=== PATIENT | female | born 1960 | race Caucasian/White ===

== ENCOUNTER 2019-01-07 13:53 | Emergency (ER) | payer OTHER ==
--- OUTSIDE RECORDS SUMMARY | 2019-01-07 13:55 | XMS REPORT | Clinical Summary ---
:1960 Author Organization [facility] Address [address] [place] [address] Care Team Providers Name Role Phone Kayce Cheek Weinberg DO Primary Care Provider Allergies Active Allergy Reactions Severity Noted Date Comments Adhesive Tape-Silicones 10/01/2015 "Plastic" Aspirin 10/01/2015 Cardio does not want pt to take Hydromorphone 10/01/2015 Meperidine 10/01/2015 Methadone 10/01/2015 Morphine Shortness Of Breath High 10/01/2015 Penicillins Shortness Of Breath High 10/01/2015 Prochlorperazine 10/01/2015 Promethazine 10/01/2015 im causes nausea Medications Medication Sig Dispensed Refills Start Date End Date Status PROAIR HFA 90 2 puffs every 6 0 01/20/2016 Active mcg/actuation inhaler (six) hours as needed. RESTASIS 0.05 % Administer 1 0 04/12/2016 Active ophthalmic emulsion drop to both eyes. cyclobenzaprine Take 10 mg by 0 Active (FLEXERIL) 10 MG mouth 3 (three) tablet times a day as needed for muscle spasms. MULTIVITAMIN ORAL Take by mouth. 0 Active ascorbic acid, Take 100 mg by 0 Active vitamin C, (vitamin mouth daily. C) 100 MG tablet amitriptyline Take 75 mg by 0 Active (ELAVIL) 100 MG mouth nightly. tablet levothyroxine TAKE ONE TABLET 90 tablet 0 10/09/2016 Active (SYNTHROID, LEVOXYL) BY MOUTH DAILY 125 mcg tablet omeprazole (PriLOSEC) TAKE ONE CAPSULE 60 capsule 0 11/26/2016 Active 20 MG capsule BY MOUTH TWICE A DAY gabapentin 200 mg daily. 0 01/16/2017 Active (NEURONTIN) 400 mg capsule metoprolol succinate 0 12/05/2016 Active XL (TOPROL-XL) 50 mg 24 hr tablet mupirocin (BACTROBAN) 0 12/25/2016 Active 2 % ointment predniSONE Take 2.5 mg by 0 01/14/2017 Active (DELTASONE) 2.5 mg mouth daily. tablet topiramate (TOPAMAX) 0 01/16/2017 Active 50 MG tablet warfarin (COUMADIN) 5 Take 1 tablet 30 tablet 11 02/11/2017 02/11/2018 MG tablet (5mg) by mouth daily for 30 days. 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 Cough 10/01/2015 Hypothyroidism 10/01/2015 Impaired fasting glucose 10/01/2015 Abnormal liver enzymes 10/01/2015 Disorder of mitral valve 10/01/2015 Urinary tract infection 10/01/2015 Vitamin D deficiency 10/01/2015 Immunizations Name Dates Previously Given Next Due INFLUENZA QUAD 04/19/2016 Influenza, Quadrivalent 04/05/2015 Pneumococcal Polysaccharide 04/19/2016, 04/05/2015 Family History Medical History Relation Name Comments Cancer Maternal Grandmother breast Relation Name Status Comments Maternal Grandmother Social History Tobacco Use Types Packs/Day Years Used Date Current Some Day Smoker Cigarettes 6 Tobacco Cessation: Ready to Quit: Yes; Counseling Given: Yes Comments: 3 pc of cigarettes per day Alcohol Use Drinks/Week oz/Week Comments No Sex Assigned at Date Recorded Not on file Job Start Date Occupation Industry Not on file Not on file Not on file Travel History Travel Start Travel End No recent travel history available. Last Filed Vital Signs Not on file Plan of Treatment Health Maintenance Due Date Last Done Comments COLON CANCER SCREENING 2009 SHINGLES VACCINES (#1) 2009 BREAST CANCER SCREENING 01/04/2016 01/03/2014 INFLUENZA VACCINE 03/05/2019 04/19/2016, 04/05/2015 Procedures Procedure Name Priority Date/Time Associated Diagnosis Comments TRANSFUSE RED BLOOD Routine 04/09/2018 5:37 PM CDT CELLS after 01/06/2018 Results Transfuse RBC (04/09/2018 5:37 PM CDT)Only the most recent of2 resultswithin the time period is included.after 01/06/2018 Advance Directives Patient has advance care planning documents on file. For more information, please contact:Rohan Arana [facility] [place] [address]
[2019-01-07] MEDS ORDERED: NA CHLORIDE 0.9% 1,000 ML ONE ×3 (14:24→18:01)
--- NOTE | 2019-01-07 14:29 | RAD REPORT ---
EXAM DESCRIPTION: CT - Head Brain Wo Cont - 01/07/2019 2:21 pm CLINICAL HISTORY: fall, head injury COMPARISON: HEAD BRAIN W O CONTRAST dated 10/21/2015; HEAD BRAIN W O CONTRAST dated 05/28/2006 TECHNIQUE: All CT scans are performed using dose optimization technique as appropriate and may inclu de automated exposure control or mA/KV adjustment according to patient size. FINDINGS: No intracranial hemorrhage, hydrocephalus or extra-axial fluid collection.No areas of brai n edema or evidence of midline shift. The paranasal sinuses and mastoids are clear. The calvarium is intact. Right posterior scalp hematoma . IMPRESSION: No acute intracranial abnormality.
[2019-01-07 14:34] LABS: Absolute Lymphocytes (CBC) 0.8 K/uL (0.7-4.9); Absolute Monocytes 0.4 K/uL (0.1-1.3); Absolute Neutrophil 3.1 K/uL (1.8-8.0); Basophils % 0.1 % (0-1.3); Hematocrit 23.9 % (36.0-45.0); Lymphocytes % 18.2 % (15.3-44.8); MPV 8.4 fL (7.6-11.3); Monocytes % 8.9 % (3.3-12.3); RBC Red Blood Cell Count 2.84 M/uL (3.86-4.86)
[2019-01-07 14:50] LABS: Potassium 3.3 mmol/L (3.5-5.1)
[2019-01-07 15:08] LABS: Protime INR 10.62
[2019-01-07] MEDS ORDERED: VITAMIN K (ADULT) 10 MG/ML ONE (15:28)
--- NOTE | 2019-01-07 15:59 | RAD REPORT ---
EXAM DESCRIPTION: CT - Abdomen Pelvis W Contrast - 01/07/2019 3:36 pm CLINICAL HISTORY: Abdominal pain . COMPARISON: none. TECHNIQUE: Computed axial tomography of the abdomen pelvis was obtained. 100 cc Isovue-300 was admin istered intravenously. Oral contrast was not requested which limits evaluation of bowel. All CT scans are performed using dose optimization technique as appropriate and may include automated exposure control or mA/KV adjustment according to patient size. FINDINGS: Gallbladder distention. Small gallstones. Gallbladder wall is not thickened. Hepatic and splenic granulomas Pancreas, adrenal and left kidney appear unremarkable. Small right renal cysts There is no evidence of diverticulitis. IMPRESSION: Cholelithiasis. Gallbladder distention
[2019-01-07] MEDS ORDERED: ONDANSETRON 4 MG/2 ML VIAL ONE ×2 (16:28→20:10)
[2019-01-07] MEDS ORDERED: NA CHLORIDE 0.9% 200 ML IV ONE ×2 (16:28→19:32)
[2019-01-07] MEDS ORDERED: PANTOPRAZOLE INJ 80 MG in NA CHLORIDE 0.9% 250 ML IV SCH (18:00)
[2019-01-07] MEDS ORDERED: PANTOPRAZOLE 40 MG INJ ONE (18:01)
--- NOTE | 2019-01-07 18:19 | EDPHYS ---
Physician Documentation [facility] Name: Kim Aldana Age: 58 yrs Sex: Female : 1960 Arrival Date: 01/07/2019 Time: 13:56 Bed 2 Private MD: ED Physician Masoud Casey HPI: 01/07 17:25 This 58 yrs old Female presents to ER via EMS with complaints of Fall Injury, rn Head Injury Without LOC-Adult. 17:25 Details of fall: The patient fell from seated position. Onset: The symptoms/episode rn began/occurred just prior to arrival. Associated injuries: The patient sustained injury to the head. Severity of symptoms: At their worst the symptoms were mild, in the emergency department the symptoms are unchanged. The patient has experienced similar episodes in the past. REports fall from seated position, was using new seated walker, lost control, fell backward and hit head, no LOC, takes coumadin, reports recurrent falls lately, also reports generalized weakness and fatigue with black tarry stools that began today. No hematemesis. . Historical: - Allergies: 14:06 Aspirin; sv 14:06 Compazine; sv 14:06 Demerol; sv 14:06 Dilaudid; sv 14:06 Methadone; sv 14:06 Morphine; sv 14:06 Neurontin; sv 14:06 PENICILLINS; sv 14:06 Phenergan; sv 14:06 plastic tape; sv 14:06 Vicodin; sv - Home Meds: 14:26 alprazolam 2 mg Oral tab twice a day [Active]; calcium with viatmin D, 1 po daily sv [Active]; cyclobenzaprine 10 mg Oral tab 4 times daily [Active]; levothyroxine 150 mcg tab once daily [Active]; magnesium oxide 400 mg Oral cap daily [Active]; minocycline 100 mg Oral cap 2 times per day [Active]; multivitamin Oral cap daily [Active]; prednisone 2.5 mg Oral tab once daily [Active]; Zofran (as hydrochloride) 4 mg Oral tab 2 times per day [Active]; Restasis ophthalmic ophthalmic [Active]; Sumatriptan Sub-Q [Active]; 14:58 acyclovir 400 mg Oral tab 2 tabs daily [Active]; amitriptyline 75 mg oral tab [Active]; sv metoprolol tartrate 25 mg oral tab once daily [Active]; Prilosec 20 mg Oral cpDR 2 times per day [Active]; warfarin 4 mg oral tab once daily [Active]; Estrace 0.01 twice weekly Oral [Active]; gabapentin 300 mg oral cap daily [Active]; Albuterol Inhl [Active]; - PMHx: 14:06 arterial insuficiency; Back pain; pulmonary edema; cerebritis; chest pain; Chronic sv pain; dejenteritive joint disease; Dyspepsia; esophageal reflux; fatigue; hypersomnia; Lupus; menopause; Panic Attacks; Seizures; Tachycardia; TIA; venous insufficiency; 14:58 osteomyelitis; lumbar radiculitis; sv - PSHx: 14:06 Appendectomy; lens implants; left hip replacement; right knee replacement; colon sv removed; right hip replacement; left foot; heart valve replacement; - Immunization history:: Adult Immunizations up to date. - Immunization history: Last tetanus immunization: unknown. - Ebola Screening: : No symptoms or risks identified at this time. - Social history:: Smoking status: Patient uses tobacco products, smokes one-half pack cigarettes per day. - Family history:: not pertinent. - Hospitalizations: : No recent hospitalization is reported. ROS: 17:25 Constitutional: Negative for fever, chills, and weight loss, Eyes: Negative for injury, rn pain, redness, and discharge, Neck: Negative for injury, pain, and swelling, Cardiovascular: Negative for chest pain, palpitations, and edema, Respiratory: Negative for shortness of breath, cough, wheezing, and pleuritic chest pain, Abdomen/GI: + pelvic pain MS/Extremity: Negative for injury and deformity, Neuro: + generalized weakness Exam: 17:28 Constitutional: This is a well developed, well nourished patient who is awake, alert, rn demanding pain medication Head/Face: + right posterior parietal hematoma, no laceration or bleeding Eyes: Pupils equal round and reactive to light, extra-ocular motions intact. Lids and lashes normal. Conjunctiva and sclera are non-icteric and not injected. Cornea within normal limits. Periorbital areas with no swelling, redness, or edema. ENT: dry MM Neck: no cervical tenderness Cardiovascular: Regular rate, + systolic murmur with click Respiratory: Lungs have equal breath sounds bilaterally, clear to auscultation Abdomen/GI: soft, non-tender Back: No spinal tenderness. + lower back ecchymosis from right hip to perineum MS/ Extremity: Pulses equal, no cyanosis. Neurovascular intact. Full, normal range of motion. Equal circumference. Neuro: Awake and alert, GCS 15, oriented to person, place, time, and situation. Cranial nerves II-XII grossly intact. Motor strength 5/5 in all extremities. Sensory grossly intact. Cerebellar exam normal Vital Signs: 14:00 BP 103 / 53; Pulse 101; Resp 14; Temp 97.8; Pulse Ox 96% ; Weight 60 kg; Height 5 ft. 6 sv in. (167.64 cm); Pain 10/10; 14:29 BP 98 / 72; Pulse 106; Resp 17; Temp 98; Pulse Ox 97% on R/A; sv 15:03 BP 91 / 42; Pulse 101; Resp 13; Pulse Ox 100% ; sv 15:42 BP 89 / 41; Pulse 100; Resp 16; Pulse Ox 99% ; sv 16:43 BP 95 / 57; Pulse 66; Resp 18; Pulse Ox 100% on R/A; mg2 17:30 BP 90 / 57; Pulse 95; Resp 18; Temp 98.8; Pulse Ox 100% on R/A; mg2 18:09 BP 90 / 76; Pulse 96; Resp 15; Pulse Ox 100% on R/A; mg2 18:22 BP 86 / 44; Pulse 95; Resp 18; Pulse Ox 100% on R/A; mg2 14:00 Body Mass Index 21.35 (60.00 kg, 167.64 cm) sv Laina Coma Score: 13:51 Eye Response: spontaneous(4). Verbal Response: oriented(5). Motor Response: obeys sv commands(6). Total: 15. 14:29 Eye Response: spontaneous(4). Verbal Response: oriented(5). Motor Response: obeys sv commands(6). Total: 15. Trauma Score (Adult): 13:51 Eye Response: spontaneous(1); Verbal Response: oriented(1); Motor Response: obeys sv commands(2); Systolic BP: > 89 mm Hg(4); Respiratory Rate: 10 to 29 per min(4); Laina Score: 15; Trauma Score: 12 14:29 Eye Response: spontaneous(1); Verbal Response: oriented(1); Motor Response: obeys sv commands(2); Systolic BP: > 89 mm Hg(4); Respiratory Rate: 10 to 29 per min(4); Laina Score: 15; Trauma Score: 12 Procedures: 18:39 Performed Ultrasound guided IV, 18g placed using ultrasound guidance by Dr. Casey.. rn MDM: 14:02 Patient medically screened. rn 15:16 ED course: Pt with supratherapeutic INR, melena, anemia, vitamin K administered, FFP rn ordered. Getting CT abd/pelvis to rule out peritoneal hemorrhage given extent of bruising to perineum and recurrent falls. . 17:47 ED course: IMproved BP, patient feels better, FFP transfusing, protonix started, blood rn to be started, hopefully will not need pressor. Scientologist full and unable to accommodate transfer, initiated transfer to [facility] ICU.. 18:11 Differential diagnosis: closed head injury. rn 18:13 Data reviewed: vital signs, nurses notes, lab test result(s), radiologic studies, CT rn scan, and as a result, I will admit patient. Counseling: I had a detailed discussion with the patient and/or guardian regarding: the historical points, exam findings, and any diagnostic results supporting the discharge/admit diagnosis, lab results, radiology results, the need to transfer to another facility, for higher level of care, [facility] does not immediately have the required specialist. ED course: Accepted for transfer to [facility] ICU for GI bleed, and supratherapeutic INR.. 01/07 14:03 Order name: CBC with Diff; Complete Time: 14:45 rn 01/07 14:03 Order name: Basic Metabolic Panel; Complete Time: 15:07 rn 01/07 14:03 Order name: Protime (+inr); Complete Time: 15:10 rn 01/07 14:03 Order name: Ptt, Activated; Complete Time: 15:10 rn 01/07 14:03 Order name: Urine Drug Screen rn 01/07 15:00 Order name: Occult Blood--Ancillary sv 01/07 14:03 Order name: CT Head Brain wo Cont; Complete Time: 14:32 rn 01/07 15:15 Order name: Type And Screen bd 01/07 15:15 Order name: CT Abd/Pelvis - IV Contrast Only; Complete Time: 16:09 rn 01/07 15:15 Order name: Type And Screen rn 01/07 15:16 Order name: Bb Add On bd 01/07 16:27 Order name: Fresh Frozen Plasma EDMS 01/07 16:27 Order name: Packed RBC Leukored EDMS 01/07 20:05 Order name: Urine Dipstick--Ancillary (enter results) mw2 01/07 14:03 Order name: IV Start; Complete Time: 14:14 rn 01/07 14:03 Order name: Urine Dipstick-Ancillary (obtain specimen); Complete Time: 21:48 rn 01/07 14:03 Order name: EKG; Complete Time: 14:04 rn 01/07 14:03 Order name: EKG - Nurse/Tech; Complete Time: 14:14 rn Administered Medications: 14:14 Drug: NS 0.9% 1000 ml Route: IV; Rate: 1000 ml; Site: right upper arm; sv 16:08 Follow up: Response: No adverse reaction; IV Status: Completed infusion; IV Intake: sv 1000ml 15:20 Drug: Vitamin K1 10 mg Route: IM; Site: left gluteus; sv 16:00 Follow up: Response: No adverse reaction sv 16:30 Drug: Zofran 4 mg Route: IVP; Site: right wrist; sv 17:04 Follow up: Response: No adverse reaction; Marked relief of symptoms mg2 16:30 Drug: NS 0.9% 1000 ml Route: IV; Rate: 1000 ml; Site: right wrist; sv 17:00 Follow up: Response: No adverse reaction; IV Status: Completed infusion; IV Intake: mg2 1000ml 17:58 Drug: NS 0.9% 1000 ml Route: IV; Rate: 1000 ml; Site: right upper arm; mg2 18:30 Follow up: Response: No adverse reaction; IV Status: Completed infusion; IV Intake: mg2 1000ml 17:58 Drug: ProTONIX 40 mg Route: IVP; Site: right forearm; mg2 18:30 Follow up: Response: No adverse reaction mg2 18:29 Drug: ProTONIX 8 mg/hr Route: IV; Rate: 25 ml/hr; Site: right upper arm; mg2 20:10 Follow up: Response: No adverse reaction; IV Status: Infusion continued upon transfer mg2 Point of Care Testing: Guaiac: 14:58 Stool Guaiac: Positive; Stool Hemoccult Control: Pass; sv 14:[address] Casey sv Disposition: 01/07/19 18:18 Transfer ordered to [facility]. Diagnosis are Upper Gastrointestinal Bleed, Anemia, unspecified, Supratherapeutic INR, Superficial injury of head. - Reason for transfer: Higher level of care. - Accepting physician is . - Condition is Fair. - Problem is new. - Symptoms have improved. Critical care time excluding procedures: 18:13 Critical care time: Bedside Care: 25 minutes, Consultation: 5 minutes, Family rn Intervention: 5 minutes. Total time: 35 minutes Signatures: Dispatcher [employer] EDAshly Darling RN RN sv Nieto, Roman, MD MD rn Gardose, Michele, RN RN mg2 Corrections: (The following items were deleted from the chart) 14:58 14:06 PMHx: osteomyelitis; sv sv 14:58 14:06 PMHx: lumbar radiculitis; sv sv 14:58 14:26 Home Meds: acyclovir 400 mg Oral tab 1 tab daily; sv sv 14:58 14:26 Home Meds: amitriptyline 75 mg Oral tab nightly; sv sv 14:58 14:26 Home Meds: metoprolol tartrate 12.5mg daily Oral tab 1 tab; sv sv 14:58 14:26 Home Meds: Prilosec 20 mg Oral cpDR 2 times per day; sv sv 14:58 14:26 Home Meds: warfarin 5 mg Oral tab once daily; sv sv 14:58 14:26 Home Meds: Estrace Oral; sv sv 14:58 14:26 Home Meds: gabapentin oral oral; sv sv 17:29 17:25 Constitutional: Negative for fever, chills, and weight loss, Eyes: Negative for rn injury, pain, redness, and discharge, Neck: Negative for injury, pain, and swelling, Cardiovascular: Negative for chest pain, palpitations, and edema, Respiratory: Negative for shortness of breath, cough, wheezing, and pleuritic chest pain, Abdomen/GI: + pelvic pain MS/Extremity: Negative for injury and deformity, Neuro: + generalized weakness rn 20:24 18:18 01/07/2019 18:18 Transfer ordered to [facility]. Diagnosis is mg2 Upper Gastrointestinal Bleed; Anemia, unspecified; Supratherapeutic INR; Superficial injury of head. Reason for transfer: Higher level of care. Accepting physician is . Condition is Fair. Problem is new. Symptoms have improved. rn
--- NOTE | 2019-01-07 18:19 | ER ---
Nurse's Notes [facility] Name: Kim Aldana Age: 58 yrs Sex: Female : 1960 Arrival Date: 01/07/2019 Time: 13:56 Bed 2 Private MD: Diagnosis: Upper Gastrointestinal Bleed;Anemia, unspecified;Supratherapeutic INR;Superficial injury of head Presentation: 01/07 13:51 Presenting complaint: EMS states: generalized weakness, multiple falls x 2-3 days, sv black tarry stools today, Hematoma noted to the back of the head, reports hitting her head on something but denies LOC. BP 99/61 HR-100-110. Care prior to arrival: None. Mechanism of Injury: Fall from standing position. Trauma event details: Injury occurred in the [facility], Injury occurred: at home. Injury occurred: January 2019. 13:51 Acuity: CABRERA 2 sv 13:51 Method Of Arrival: EMS: [facility] sv 14:01 Transition of care: patient was not received from another setting of care. Onset of sv symptoms was January 07, 2019. 14:08 Risk Assessment: Do you want to hurt yourself or someone else? Patient reports no sv desire to harm self or others. Initial Sepsis Screen: Does the patient meet any 2 criteria? No. Patient's initial sepsis screen is negative. Does the patient have a suspected source of infection? No. Patient's initial sepsis screen is negative. Triage Assessment: 19:00 Pain: Complains of pain in whole body. mg2 19:00 General: Appears comfortable, Behavior is calm, cooperative. mg2 Trauma Activation: Alert Physician: ED Physician; Name: Dr Casey; Notified At: 13:56; Arrived At: 13:56 Physician: General Surgeon; Name: ; Notified At: 13:56; Arrived At: Physician: Radiology; Name: Samantha Campbell; Notified At: 13:56; Arrived At: 13:56 Physician: Respiratory; Name: ; Notified At: 13:56; Arrived At: Physician: Lab; Name: ; Notified At: 13:56; Arrived At: Historical: - Allergies: 14:06 Aspirin; sv 14:06 Compazine; sv 14:06 Demerol; sv 14:06 Dilaudid; sv 14:06 Methadone; sv 14:06 Morphine; sv 14:06 Neurontin; sv 14:06 PENICILLINS; sv 14:06 Phenergan; sv 14:06 plastic tape; sv 14:06 Vicodin; sv - Home Meds: 14:26 alprazolam 2 mg Oral tab twice a day [Active]; calcium with viatmin D, 1 po daily sv [Active]; cyclobenzaprine 10 mg Oral tab 4 times daily [Active]; levothyroxine 150 mcg tab once daily [Active]; magnesium oxide 400 mg Oral cap daily [Active]; minocycline 100 mg Oral cap 2 times per day [Active]; multivitamin Oral cap daily [Active]; prednisone 2.5 mg Oral tab once daily [Active]; Zofran (as hydrochloride) 4 mg Oral tab 2 times per day [Active]; Restasis ophthalmic ophthalmic [Active]; Sumatriptan Sub-Q [Active]; 14:58 acyclovir 400 mg Oral tab 2 tabs daily [Active]; amitriptyline 75 mg oral tab [Active]; sv metoprolol tartrate 25 mg oral tab once daily [Active]; Prilosec 20 mg Oral cpDR 2 times per day [Active]; warfarin 4 mg oral tab once daily [Active]; Estrace 0.01 twice weekly Oral [Active]; gabapentin 300 mg oral cap daily [Active]; Albuterol Inhl [Active]; - PMHx: 14:06 arterial insuficiency; Back pain; pulmonary edema; cerebritis; chest pain; Chronic sv pain; dejenteritive joint disease; Dyspepsia; esophageal reflux; fatigue; hypersomnia; Lupus; menopause; Panic Attacks; Seizures; Tachycardia; TIA; venous insufficiency; 14:58 osteomyelitis; lumbar radiculitis; sv - PSHx: 14:06 Appendectomy; lens implants; left hip replacement; right knee replacement; colon sv removed; right hip replacement; left foot; heart valve replacement; - Immunization history:: Adult Immunizations up to date. - Immunization history: Last tetanus immunization: unknown. - Ebola Screening: : No symptoms or risks identified at this time. - Social history:: Smoking status: Patient uses tobacco products, smokes one-half pack cigarettes per day. - Family history:: not pertinent. - Hospitalizations: : No recent hospitalization is reported. Screenin:07 Abuse screen: Denies threats or abuse. Denies injuries from another. Nutritional sv screening: No deficits noted. Tuberculosis screening: No symptoms or risk factors identified. Fall Risk Fall in past 12 months (25 points). No secondary diagnosis (0 pts). IV access (20 points). Ambulatory Aid- Crutches/Cane/Walker (15 pts). Gait- Weak (10 pts.). Mental Status- Oriented to own ability (0 pts). Total Cool Fall Scale indicates High Risk Score (45 or more points). Fall prevention measures have been instituted. Side Rails Up X 2 Placed Close to Nursing Station Frequent Obs/Assessments Occuring As available patient and family educated on Fall Prevention Program and Strategies. Primary Survey: 13:55 NO uncontrolled hemorrhage observed. A: The patient is alert. Airway: patent, No sv supplemental oxygen in use on arrival. Oral cavity: clear, Trachea midline. Breathing/Chest: Respiratory pattern: regular, Respiratory effort: spontaneous, unlabored, Chest inspection: symmetrical rise and fall of the chest. Circulation: Heart tones present. Pulses: palpable right radial artery and left radial artery. Skin color: pink, Skin temperature: warm, dry. Disability Alert. Exposure/Environment: All clothing and personal items were removed. Forensic evidence collection is not deemed to be indicated at this time. Items placed in patient belonging bag. There is no evidence of uncontrolled external bleeding. No obvious injuries are noted at this time. A warming method has been applied: A warm blanket has been provided to the patient. 14:29 Reassessment Airway Airway Patent Oxygen No O2 Oral cavity Clear Trachea Midline sv Breathing/Chest Respiratory pattern Regular Respiratory effort Spontaneous Unlabored Chest inspection Symmetrical Circulation Heart rhythm Sinus tach Heart tones Present Pulses Palpable Color Pale Temperature Warm Dry Disability Alert. Secondary Survey: 13:55 HEENT: Head Other hematoma noted to the right occipital area. Gastrointestinal: Patient sv reports Other black tarry stools. : No deficits noted. No signs and/or symptoms were reported regarding the genitourinary system. Musculoskeletal: No deficits noted. No signs and/or symptoms reported regarding the musculoskeletal system. Injury Description: Bruise sustained to right mastoid area and right hip is red, purple. Assessment: 14:59 Reassessment: Patient appears in no apparent distress at this time. No changes from sv previously documented assessment. Patient and/or family updated on plan of care and expected duration. Pain level reassessed. Patient is alert, oriented x 3, equal unlabored respirations, skin warm/dry/pink. Derm: Bruising that is dark purple, on buttocks. 14:59 Musculoskeletal: Amputation of left first toe, left second toe, left third toe, left sv fourth toe and left fifth toe. 15:24 Reassessment: Went in to room to have pt sign FFP consent. Consent and risks gone over sv with the pt. Pt stated "What if I don't sign the consent? What if I don't want anything done? I just want to go home. I don't want to be here." Pt able to state that if she goes home, she could . Pt's son is at the bedside. Pt stated "I'll just give all my rights to my son and he can make the decisions." Informed pt that she must make this decision of what care she wants, pt is not confused and is of right state of mind. Informed pt that I would need to go discuss what she just stated to me. 16:32 Reassessment: Patient appears in no apparent distress at this time. No changes from sv previously documented assessment. Patient and/or family updated on plan of care and expected duration. Pain level reassessed. Patient is alert, oriented x 3, equal unlabored respirations, skin warm/dry/pink. Son remains at the bedside. Pt agreeing to be treated. 17:30 Reassessment: Patient appears in no apparent distress at this time. verified 1st unit iw FFP with Oleg Tapia RN. 18:30 Reassessment: Patient appears in no apparent distress at this time. Patient and/or mg2 family updated on plan of care and expected duration. Pain level reassessed. Patient is alert, oriented x 3, equal unlabored respirations, skin warm/dry/pink. 18:40 Reassessment: patient is asking for pain medication for chest pain saying that it mg2 started after the first bag of FFP. provider informed and ordered to do ECG. patient refused for EKG and saying she wants to start the 2nd bag of FFP. informed and agreed saying that patient was just asking for pain meds ang she cant have it because of hypotension. 19:30 Reassessment: Patient appears in no apparent distress at this time. Patient and/or mg2 family updated on plan of care and expected duration. Pain level reassessed. Patient is alert, oriented x 3, equal unlabored respirations, skin warm/dry/pink. patient not in distress. FFP ongoing. no reactions noted. 20:15 Reassessment: patient transferred to [facility], report given to [facility] and [address] [facility]. blood transfusion still ongoing. patient not in distress, conversant, coherent, GCS 15/15. Vital Signs: 14:00 BP 103 / 53; Pulse 101; Resp 14; Temp 97.8; Pulse Ox 96% ; Weight 60 kg; Height 5 ft. 6 sv in. (167.64 cm); Pain 10/10; 14:29 BP 98 / 72; Pulse 106; Resp 17; Temp 98; Pulse Ox 97% on R/A; sv 15:03 BP 91 / 42; Pulse 101; Resp 13; Pulse Ox 100% ; sv 15:42 BP 89 / 41; Pulse 100; Resp 16; Pulse Ox 99% ; sv 16:43 BP 95 / 57; Pulse 66; Resp 18; Pulse Ox 100% on R/A; mg2 17:30 BP 90 / 57; Pulse 95; Resp 18; Temp 98.8; Pulse Ox 100% on R/A; mg2 18:09 BP 90 / 76; Pulse 96; Resp 15; Pulse Ox 100% on R/A; mg2 18:22 BP 86 / 44; Pulse 95; Resp 18; Pulse Ox 100% on R/A; mg2 14:00 Body Mass Index 21.35 (60.00 kg, 167.64 cm) sv [place] Coma Score: 13:51 Eye Response: spontaneous(4). Verbal Response: oriented(5). Motor Response: obeys sv commands(6). Total: 15. 14:29 Eye Response: spontaneous(4). Verbal Response: oriented(5). Motor Response: obeys sv commands(6). Total: 15. Trauma Score (Adult): 13:51 Eye Response: spontaneous(1); Verbal Response: oriented(1); Motor Response: obeys sv commands(2); Systolic BP: > 89 mm Hg(4); Respiratory Rate: 10 to 29 per min(4); Laina Score: 15; Trauma Score: 12 14:29 Eye Response: spontaneous(1); Verbal Response: oriented(1); Motor Response: obeys sv commands(2); Systolic BP: > 89 mm Hg(4); Respiratory Rate: 10 to 29 per min(4); [place] Score: 15; Trauma Score: 12 ED Course: 13:55 Patient maintains SpO2 saturation greater than 95% on room air. sv 13:55 Thermoregulation: warm blanket given to patient. sv 13:55 potline monitor on. Pulse ox on. NIBP on. sv 13:56 Patient arrived in ED. ae4 13:59 Ashly Jerez, RN is Primary Nurse. sv 14:00 Inserted saline lock: 22 gauge in right upper arm, using aseptic technique. ,using sv aseptic technique. done by [facility] Blood collected. 14:01 Triage completed. sv 14:02 Masoud Casey MD is Attending Physician. rn 14:07 EKG done, by deployment technician. reviewed by Masoud Casey MD. sm3 14:07 Arm band placed on. sv 14:07 Patient has correct armband on for positive identification. Bed in low position. Call sv light in reach. Side rails up X2. 14:[address] via stretcher. sv 14:21 CT completed. Patient tolerated procedure well. Patient moved back from CT. sj 14:23 CT Head Brain wo Cont In Process Unspecified. 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 sv 15:37 CT Abd/Pelvis - IV Contrast Only In Process Unspecified. EDMS 15:40 Patient moved back from CT. sv 15:42 Type And Screen Sent. sv 16:06 Inserted saline lock: 22 gauge in right wrist, using aseptic technique. ,using aseptic sv technique. diffusics Flushed right with 5 ml normal saline wrist. 16:06 Consent for blood and/or blood product transfusion explained by staff, explained by physician, signed by patient. 16:37 Primary Nurse role handed off by Ashly Jerez, MELQUIADES sv 16:42 Oleg Tapia, RN is Primary Nurse. mg2 17:39 attempted transfer to [facility], pt was denied due to lack of capacity. bd 18:45 Inserted saline lock: 18 gauge in left antecubital area, using aseptic technique. by Dr jyoti Casey MD Patient transferred, IV remains in place. Administered Medications: 14:14 Drug: NS 0.9% 1000 ml Route: IV; Rate: 1000 ml; Site: right upper arm; sv 16:08 Follow up: Response: No adverse reaction; IV Status: Completed infusion; IV Intake: sv 1000ml 15:20 Drug: Vitamin K1 10 mg Route: IM; Site: left gluteus; sv 16:00 Follow up: Response: No adverse reaction sv 16:30 Drug: Zofran 4 mg Route: IVP; Site: right wrist; sv 17:04 Follow up: Response: No adverse reaction; Marked relief of symptoms mg2 16:30 Drug: NS 0.9% 1000 ml Route: IV; Rate: 1000 ml; Site: right wrist; sv 17:00 Follow up: Response: No adverse reaction; IV Status: Completed infusion; IV Intake: mg2 1000ml 17:58 Drug: NS 0.9% 1000 ml Route: IV; Rate: 1000 ml; Site: right upper arm; mg2 18:30 Follow up: Response: No adverse reaction; IV Status: Completed infusion; IV Intake: mg2 1000ml 17:58 Drug: ProTONIX 40 mg Route: IVP; Site: right forearm; mg2 18:30 Follow up: Response: No adverse reaction mg2 18:29 Drug: ProTONIX 8 mg/hr Route: IV; Rate: 25 ml/hr; Site: right upper arm; mg2 20:10 Follow up: Response: No adverse reaction; IV Status: Infusion continued upon transfer mg2 Medication: 20:05 Blood products: PRBCs X 1 unit given. FFP X 3 units given. PRC first unit was started mg2 in ED and continued on the way to [facility]. Point of Care Testing: Guaiac: 14:58 Stool Guaiac: Positive; Stool Hemoccult Control: Pass; sv 14:[address] Casey sv Intake: 13:51 PO: 0ml; Total: 0ml. sv 14:29 PO: 0ml; Total: 0ml. sv 16:08 IV: 1000ml; Total: 1000ml. sv Output: 13:51 Urine: 0ml; Total: 0ml. sv 14:29 Urine: 0ml; Total: 0ml. sv Outcome: 18:18 ER care complete, transfer ordered by rn 20:20 Patient's length of stay was extended due to receiving facility on divert. mg2 20:23 Transferred by ground EMS to [facility], Transfer form completed. mg2 20:23 Condition: stable 20:23 Instructed on the need for transfer, Demonstrated understanding of instructions. 20:24 Patient left the ED. mg2 Signatures: Dispatcher [employer] EDMS Geeta Heredia Stephanie, RN RN sv Eusebia Barlow Irene, RN RN iw Masoud Casey MD MD rn Gardose, Michele, RN RN mg2 Annemarie Patterson3 Ludwin Johnson RN RN ae4 Corrections: (The following items were deleted from the chart) 14:11 13:51 Presenting complaint: EMS states: generalized weakness, multiple falls x 2-3 sv days, black tarry stools today, Hematoma noted to the back of the head BP 99/61 HR-100-110. sv 14:15 14:00 BP 103 / 53; Pulse 101bpm; Resp 14bpm; Pulse Ox 96%; Temp 97.8F; Pain 10/10; sv sv 14:58 14:06 PMHx: osteomyelitis; sv sv 14:58 14:06 PMHx: lumbar radiculitis; sv sv 14:58 14:26 Home Meds: acyclovir 400 mg Oral tab 1 tab daily; sv sv 14:58 14:26 Home Meds: amitriptyline 75 mg Oral tab nightly; sv sv 14:58 14:26 Home Meds: metoprolol tartrate 12.5mg daily Oral tab 1 tab; sv sv 14:58 14:26 Home Meds: Prilosec 20 mg Oral cpDR 2 times per day; sv sv 14:58 14:26 Home Meds: warfarin 5 mg Oral tab once daily; sv sv 14:58 14:26 Home Meds: Estrace Oral; sv sv 14:58 14:26 Home Meds: gabapentin oral oral; sv sv 15:45 15:42 BP 88 / 44; Pulse 100bpm; Resp 16bpm; Pulse Ox 99%; sv sv 16:34 14:59 Derm: Bruising that is dark purple, on buttocks sv sv
[2019-01-07 20:13] LABS: Barbiturates NEGATIVE (NEGATIVE); Benzodiazepines POSITIVE (NEGATIVE); Cocaine NEGATIVE (NEGATIVE); METHAMPHETAM NEGATIVE (NEGATIVE); Methadone NEGATIVE (NEGATIVE); Opiates NEGATIVE (NEGATIVE); Phencyclidine NEGATIVE (NEGATIVE); THC Cannibis NEGATIVE (NEGATIVE)
[2019-01-07 20:22] LABS: Urine Blood 2+ (NEG); Urine Glucose NEGATIVE (NEG); Urine Protein NEGATIVE (NEG); Urine Specific Gravity <1.005 (1.005-1.030)
[2019-01-07 20:37] VITALS: O2SAT 100
[2019-01-07 20:39] VITALS: TEMP 98.8
[2019-01-07 20:43] VITALS: BP 86/44
--- NOTE | 2019-01-08 11:12 | EKG ---
Test Date: 2019-01-07 Test Time: 13:58:10 Expressive Music Therapist: ALLEN MEASUREMENT RESULTS: Intervals: Rate: 104 IN: 156 QRSD: 84 QT: 388 QTc: 510 [place]: P: 44 IN: 156 QRS: 18 T: 70 INTERPRETIVE STATEMENTS: Sinus tachycardia Nonspecific T wave abnormality Abnormal ECG Compared to ECG 04/03/2017 16:18:06 T-wave abnormality now present Sinus rhythm no longer present Electronically Signed On 01-08-19 11:09:54 CDT by Rolan Angel
== END 2019-01-07 20:24 | disposition short-term general hospital (02) ==
LOC: ER 13:53
PROC: 30233K1 Transfusion of Nonautologous Frozen Plasma into Peripheral Vein, Percutaneous Approach (ICD-10-PCS; principal; 2019-01-07)
PROC: 30233N1 Transfusion of Nonautologous Red Blood Cells into Peripheral Vein, Percutaneous Approach (ICD-10-PCS; 2019-01-07)
DX: D64.9 Anemia, unspecified (principal); K92.2 Gastrointestinal hemorrhage, unspecified; R79.1 Abnormal coagulation profile; W07.XXXA Fall from chair, initial encounter; Z91.81 History of falling; Y93.89 Activity, other specified; Y92.9 Unspecified place or not applicable; F17.210 Nicotine dependence, cigarettes, uncomplicated; G40.909 Epilepsy, unspecified, not intractable, without status epilepticus; G89.29 Other chronic pain; Z79.01 Long term (current) use of anticoagulants; Z88.0 Allergy status to penicillin; Z88.5 Allergy status to narcotic agent; Z88.6 Allergy status to analgesic agent; Z88.8 Allergy status to other drugs, medicaments and biological substances; Z95.4 Presence of other heart-valve replacement; Z91.048 Other nonmedicinal substance allergy status; Z96.643 Presence of artificial hip joint, bilateral; Z96.651 Presence of right artificial knee joint
CPT/HCPCS: 93005; 85025; 80048; 36415; 86900; 86850; 85610; 86901; 80307 ×8; 85730; 82272; 81003; 86927; 70450; 74177; 36430; Q9967; J3430; C9113 ×2; P9016; P9059 ×2; P9017; J7030 ×3; J2405 ×2; 96372; 99285

== ENCOUNTER 2019-03-28 16:58 | Emergency (ER) | payer OTHER ==
--- OUTSIDE RECORDS SUMMARY | 2019-03-28 17:02 | XMS REPORT | Clinical Summary ---
:1960 Author Organization [facility] Address [address] [place] [address] Care Team Providers Name Role Phone Pcp, No Primary Care Provider Unavailable Allergies Active Allergy Reactions Severity Noted Date Comments Penicillins 01/08/2019 Medications Medication Sig Dispensed Refills Start End Status Date Date predniSONE Take 2.5 mg by 0 Active (DELTASONE) 2.5 MG mouth daily. tablet metoprolol Take 25 mg by 0 Active (TOPROL-XL) 25 MG mouth daily. 24 hr tablet amitriptyline Take 25 mg by 0 Active (ELAVIL) 25 MG mouth daily. tablet acyclovir (ZOVIRAX) Take by mouth 0 Active 200 MG capsule daily as needed. omeprazole Take 20 mg by 0 Active (PRILOSEC) 20 MG mouth 2 (two) capsule times daily. ALPRAZolam (XANAX) Take 2 mg by mouth 0 Active 2 MG tablet every night as needed for Sleep. cyclobenzaprine Take 10 mg by 0 Discontinued (FLEXERIL) 10 MG mouth 2 (two) 019 tablet times daily as needed for Muscle spasms. warfarin (COUMADIN) Take 5 mg by mouth 0 Discontinued 5 MG tablet daily. 019 enoxaparin Inject 0.7 mLs (70 9.8 mL 0 Discontinued (LOVENOX) 100 mg/mL mg total) 9 019 Syrg subcutaneously every 12 (twelve) hours for 7 days. gabapentin Take 1 capsule 60 capsule 0 (NEURONTIN) 300 MG (300 mg total) by 9 019 capsule mouth 2 (two) times daily for 30 days. levothyroxine Take 1 tablet (150 30 tablet 0 (SYNTHROID, mcg total) by 019 LEVOTHROID) 150 MCG mouth Every tablet morning on an empty stomach for [address] 1 patch onto 30 patch 0 (LIDODERM) 5 % the skin daily for 9 019 patch 30 days Remove & Discard patch within 12 hours or as directed by MD. HYDROcodone-acetami Take 1 tablet by 30 tablet 0 nophen (NORCO mouth every 6 5-325) 5-325 mg per (six) hours as tablet needed for Pain for up to 10 days. Max Daily Amount: 4 tablets warfarin (COUMADIN) Take 1 tablet (5 30 tablet 0 5 MG tablet mg total) by mouth 9 019 daily for 30 days. enoxaparin Inject 0.3 mLs (30 3 mL 0 (LOVENOX) 30 mg/0.3 mg total) 9 019 mL Syrg subcutaneously every 12 (twelve) hours for 5 days. enoxaparin Inject 0.4 mLs (40 4 mL 0 (LOVENOX) 40 mg/0.4 mg total) 9 019 mL Syrg subcutaneously 2 (two) times daily for 5 days. Active Problems Problem Noted Date GI bleed 01/07/2019 Encounters Date Type Specialty Care Team Description 01/15/2019 Surgery Bandeali, L CATH & CORONARY Salman ANGIOS MD Gudelia 01/09/2019 Anesthesia Event Gastroenterology Juliano Duncan, SIERRA 01/09/2019 Surgery Gastroenterology Ramsey, COLONOSCOPY Clifton Lund MD 01/08/2019 Anesthesia Event Gastroenterology Kayla Ferguson CRNA 01/08/2019 Surgery Gastroenterology Ramsey, UPPER ENDOSCOPY Clifton Lund MD 01/08/2019 Travel 01/07/2019 Hospital Cardiology Omranian, Acute pulmonary edema (HCC); - Encounter MD Conchita Gastrointestinal hemorrhage, unspecified gastrointestinal hemorrhage type; 01/17/2019 Irina Raphael, S/P MVR (mitral valve replacement); S/P AVR (aortic valve replacement); Intractable vomiting with nausea, unspecified vomiting type; Anemia, unspecified type 01/07/2019 Orders Only General Internal Medicine 01/07/2019 Telephone Critical Care Medicine Almita, [id number] Call MD Conchita after 03/27/2018 Social History Tobacco Use Types Packs/Day Years Used Date Current Every Day Smoker 0.5 1 Quit: 01/08/2019 Smokeless Tobacco: Never Used Tobacco Cessation: Ready to Quit: Yes Comments: 44 years Alcohol Use Drinks/Week oz/Week Comments Yes Sex Assigned at Date Recorded Not on file Job Start Date Occupation Industry Not on file Not on file Not on file Travel History Travel Start Travel End No recent travel history available. Last Filed Vital Signs Vital Sign Reading Time Taken Blood Pressure 151/72 01/17/2019 7:00 AM CDT Pulse 78 01/17/2019 7:00 AM CDT Temperature 35.9 C (96.7 F) 01/17/2019 7:00 AM CDT Respiratory Rate 18 01/17/2019 7:00 AM CDT Oxygen Saturation 96% 01/17/2019 7:00 AM CDT Inhaled Oxygen Concentration 21% 01/16/2019 10:30 AM CDT Weight 67 kg (147 lb 11.2 oz) 01/17/2019 9:28 AM CDT Height 167.6 cm (5' 6") 01/16/2019 12:00 PM CDT Body Mass Index 23.84 01/17/2019 9:28 AM CDT Plan of Treatment Not on file Procedures Procedure Name Priority Date/Time Associated Comments Diagnosis REPORT OF PROCEDURE - 01/23/2019 8:51 ENDOSCOPY SCAN AM CDT CARDIAC CATH REPORT - 01/19/2019 1:51 SCAN PM CDT RHYTHM STRIP - SCAN 01/19/2019 1:51 PM CDT PROTHROMBIN TIME/INR Routine 01/17/2019 5:12 Results for this AM CDT procedure are in the results section. PROTHROMBIN TIME/INR Routine 01/16/2019 5:51 Results for this AM CDT procedure are in the results section. L CATH & CORONARY 01/15/2019 10:15 Abnormal stress ANGIOS AM CDT test Case Notes [id number] CBC W/PLT COUNT & AUTO Routine 01/15/2019 5:41 AM CDT Results for this DIFFERENTIAL procedure are in the results section. CBC W/PLT COUNT & AUTO Routine 01/15/2019 5:41 AM CDT Results for this DIFFERENTIAL procedure are in the results section. PROTHROMBIN TIME/INR Routine 01/14/2019 5:56 AM CDT OCCULT BLOOD, STOOL Routine 01/13/2019 10:18 PM CDT CBC W/PLT COUNT & AUTO Routine 01/13/2019 6:37 AM CDT Results for this DIFFERENTIAL procedure are in the results section. CBC W/PLT COUNT & AUTO Routine 01/13/2019 6:37 AM CDT Results for this DIFFERENTIAL procedure are in the results section. PROTHROMBIN TIME/INR Routine 01/13/2019 6:37 AM CDT ECG 12-LEAD Routine 01/12/2019 5:33 PM CDT Procedure Note - Interface, External Ris In - 01/12/2019 5:44 PM CDT Ventricular Rate 90 BPM Atrial Rate 90 BPM P-R Interval 154 ms QRS Duration 84 ms Q-T Interval 392 ms QTC Calculation(Bazett) 479 ms P [place] 49 degrees R [place] 5 degrees T [place] 48 degrees Normal sinus rhythm Nonspecific T wave abnormality Prolonged QT Abnormal ECG When compared with ECG of 12-JAN-2019 13:34, Premature ventricular complexes are no longer Present Questionable change in QRS axis ECG 12-LEAD Routine 01/12/2019 5:33 Results for PM CDT this procedure are in the results section. NM MYOCARDIAL PERFUSION Routine 01/12/2019 3:21 Results for SPECT, PHARM(LEXISCAN) PM CDT this procedure are in the results section. TREADMILL Routine 01/12/2019 1:47 Results for TOLERANCE(NON-NUCLEAR PM CDT this procedure TREADMILL) are in the results section. ECG 12-LEAD Routine 01/12/2019 1:34 Results for PM CDT this procedure are in the results section. TSH Routine 01/12/2019 6:58 Results for AM CDT this procedure are in the results section. T4 Routine 01/12/2019 6:58 Results for AM CDT this procedure are in the results section. CBC (HEMOGRAM ONLY) Routine 01/12/2019 2:46 Results for AM CDT this procedure are in the results section. PROTHROMBIN TIME/INR Routine 01/12/2019 2:46 Results for AM CDT this procedure are in the results section. CBC (HEMOGRAM ONLY) Routine 01/11/2019 3:27 Results for PM CDT this procedure are in the results section. BASIC METABOLIC PANEL Routine 01/11/2019 1:27 Results for (7) PM CDT this procedure are in the results section. ECG 12-LEAD STAT 01/11/2019 8:14 Results for AM CDT this procedure are in the results section. TROPONIN I Routine 01/11/2019 8:07 Results for AM CDT this procedure are in the results section. MAGNESIUM STAT 01/11/2019 5:20 Results for AM CDT this procedure are in the results section. BASIC METABOLIC PANEL Routine 01/11/2019 5:20 Results for (7) AM CDT this procedure are in the results section. TROPONIN I Routine 01/11/2019 5:20 Results for AM CDT this procedure are in the results section. PT/APTT Routine 01/11/2019 3:59 Results for AM CDT this procedure are in the results section. HEMOGLOBIN AND STAT 01/11/2019 3:59 Results for HEMATOCRIT AM CDT this procedure are in the results section. PT/APTT Routine 01/10/2019 9:53 Results for PM CDT this procedure are in the results section. TROPONIN I Routine 01/10/2019 9:53 Results for PM CDT this procedure are in the results section. XR ABDOMEN 1 VIEW STAT 01/10/2019 6:22 Results for PM CDT this procedure are in the results section. TRANSFUSION SERVICE 01/10/2019 5:51 REPORT - SCAN PM CDT CBC W/PLT COUNT & AUTO Add-On 01/10/2019 12:57 Results for DIFFERENTIAL PM CDT this procedure are in the results section. MAGNESIUM Add-On 01/10/2019 12:57 Results for PM CDT this procedure are in the results section. TROPONIN I Add-On 01/10/2019 12:57 Results for PM CDT this procedure are in the results section. BASIC METABOLIC PANEL Add-On 01/10/2019 12:57 Results for (7) PM CDT this procedure are in the results section. CBC W/PLT COUNT & AUTO Add-On 01/10/2019 12:57 Results for DIFFERENTIAL PM CDT this procedure are in the results section. HEMOGLOBIN AND STAT 01/10/2019 12:57 Results for HEMATOCRIT PM CDT this procedure are in the results section. LIPASE Routine 01/10/2019 12:57 Results for PM CDT this procedure are in the results section. AMYLASE Routine 01/10/2019 12:57 Results for PM CDT this procedure are in the results section. APTT Routine 01/10/2019 12:57 Results for PM CDT this procedure are in the results section. US ABDOMEN LIMITED STAT 01/10/2019 12:03 Results for PM CDT this procedure are in the results section. PREPARE LEUKO-REDUCED ROBERT 01/09/2019 11:54 Results for RBC PM CDT this procedure are in the results section. PT/APTT Routine 01/09/2019 8:19 Results for PM CDT this procedure are in the results section. TRANSFUSION SERVICE 01/09/2019 5:52 REPORT - SCAN PM CDT HEMOGLOBIN AND STAT 01/09/2019 3:20 Results for HEMATOCRIT PM CDT this procedure are in the results section. REPORT OF PROCEDURE - 01/09/2019 12:57 ENDOSCOPY URL PM CDT REPORT OF PROCEDURE - 01/09/2019 12:49 ENDOSCOPY URL PM CDT COLONOSCOPY 01/09/2019 10:00 Acute GI bleeding AM CDT PT/APTT Routine 01/09/2019 7:20 Results for AM CDT this procedure are in the results section. PROTHROMBIN TIME/INR Routine 01/09/2019 3:09 Results for AM CDT this procedure are in the results section. HEMOGLOBIN AND STAT 01/09/2019 3:09 Results for HEMATOCRIT AM CDT this procedure are in the results section. MAGNESIUM STAT 01/09/2019 3:09 Results for AM CDT this procedure are in the results section. BASIC METABOLIC PANEL Routine 01/09/2019 3:09 Results for (7) AM CDT this procedure are in the results section. PT/APTT Routine 01/08/2019 11:31 Results for PM CDT this procedure are in the results section. PT/APTT Routine 01/08/2019 9:57 Results for PM CDT this procedure are in the results section. HEMOGLOBIN AND STAT 01/08/2019 9:57 Results for HEMATOCRIT PM CDT this procedure are in the results section. H. PYLORI ANTIGEN, STOOL Routine 01/08/2019 9:22 Results for PM CDT this procedure are in the results section. ECHOCARDIOGRAM REPORT - 01/08/2019 9:01 SCAN PM CDT TRANSFUSION SERVICE 01/08/2019 6:00 REPORT - SCAN PM CDT CBC (HEMOGRAM ONLY) Routine 01/08/2019 3:47 Results for PM CDT this procedure are in the results section. HEMOGLOBIN AND STAT 01/08/2019 3:47 Results for HEMATOCRIT PM CDT this procedure are in the results section. APTT Add-On 01/08/2019 2:03 Results for PM CDT this procedure are in the results section. PROTHROMBIN TIME/INR Routine 01/08/2019 2:03 Results for PM CDT this procedure are in the results section. UPPER ENDOSCOPY 01/08/2019 1:00 Gastrointestinal PM CDT hemorrhage, unspecified gastrointestinal hemorrhage type B-TYPE NATRIURETIC Routine 01/08/2019 11:47 Results for FACTOR (BNP) AM CDT this procedure are in the results section. POTASSIUM Routine 01/08/2019 11:46 Results for AM CDT this procedure are in the results section. MAGNESIUM STAT 01/08/2019 11:46 Results for AM CDT this procedure are in the results section. 2D ECHO W/ DOPPLER Routine 01/08/2019 11:22 Results for (CW/PW/COLOR) AM CDT this procedure are in the results section. PROCALCITONIN STAT 01/08/2019 9:30 Results for AM CDT this procedure are in the results section. LACTIC ACID, VENOUS STAT 01/08/2019 9:30 Results for AM CDT this procedure are in the results section. HEMOGLOBIN AND STAT 01/08/2019 9:30 Results for HEMATOCRIT AM CDT this procedure are in the results section. XR CHEST 1 VIEW STAT 01/08/2019 8:04 Results for PORTABLE/BEDSIDE AM CDT this procedure are in the results section. MAGNESIUM STAT 01/08/2019 7:36 Results for AM CDT this procedure are in the results section. BASIC METABOLIC PANEL STAT 01/08/2019 7:36 Results for (7) AM CDT this procedure are in the results section. TRANSFUSE LEUKO-REDUCED Routine 01/08/2019 5:54 RED BLOOD CELLS AM CDT FERRITIN Routine 01/08/2019 5:39 Results for AM CDT this procedure are in the results section. IRON, TIBC, % SAT. Routine 01/08/2019 5:39 Results for (WITHOUT FERRITIN) AM CDT this procedure are in the results section. HEMOGLOBIN AND STAT 01/08/2019 5:39 Results for HEMATOCRIT AM CDT this procedure are in the results section. ABORH, MANUAL STAT 01/07/2019 11:52 Results for PM CDT this procedure are in the results section. TYPE AND SCREEN, Routine 01/07/2019 11:24 Results for AUTOMATED PM CDT this procedure are in the results section. THROMBOELASTOGRAPH (TEG) STAT 01/07/2019 10:38 Results for PM CDT this procedure are in the results section. XR CHEST 1 VIEW STAT 01/07/2019 10:32 Results for PORTABLE/BEDSIDE PM CDT this procedure are in the results section. ECG 12-LEAD Routine 01/07/2019 10:16 Results for PM CDT this procedure are in the results section. FIBRINOGEN STAT 01/07/2019 10:06 Results for PM CDT this procedure are in the results section. MAGNESIUM Routine 01/07/2019 9:57 Results for PM CDT this procedure are in the results section. COMPREHENSIVE METABOLIC Routine 01/07/2019 9:57 Results for PANEL PM CDT this procedure are in the results section. CBC W/PLT COUNT & AUTO Routine 01/07/2019 9:54 Results for DIFFERENTIAL PM CDT this procedure are in the results section. PROTHROMBIN TIME/INR Routine 01/07/2019 9:54 Results for PM CDT this procedure are in the results section. CBC W/PLT COUNT & AUTO Routine 01/07/2019 9:54 Results for DIFFERENTIAL PM CDT this procedure are in the results section. after 03/27/2018 Results EKG-SCANNED (01/23/2019 8:51 AM CDT) Narrative Performed At CARDIAC CATH REPORT - SCAN (01/19/2019 1:51 PM CDT) Narrative Performed At RHYTHM STRIP - SCAN (01/19/2019 1:51 PM CDT) Narrative Performed At Daily Prothrombin time/INR while on warfarin (01/17/2019 5:12 AM CDT)Only the most recent of8 resultswithin the time period is included. Protime 14.0 11.9 - 14.2 seconds [facility] INR 1.1 <=5.9 [facility] Specimen Blood Narrative Performed At Effective 12/31/2018: PT Reference Range [facility] Change New: 11.9-14.2Previous: 11.7-14.7 RECOMMENDED COUMADIN/WARFARIN INR THERAPY RANGES STANDARD DOSE: 2.0-3.0Includes: PROPHYLAXIS for venous thrombosis, systemic embolization; TREATMENT for venous thrombosis and/or pulmonary embolus. HIGH RISK: Target INR is 2.5-3.5 for patients wiht mechanical heart valves. While on warfarin. Performing Organization Address City/State/Zipcode Phone Number [facility] [address] [place] [address] [phone] CENTER CBC with platelet count + automated diff (01/15/2019 5:41 AM CDT)Only the most recent of4 resultswithin the time period is included. WBC 7.0 3.5 - 10.5 K/L [facility] RBC 3.72 (L) 3.93 - 5.22 M/L [facility] Hemoglobin 10.4 (L) 11.2 - 15.7 GM/DL [facility] Hematocrit 33.0 (L) 34.1 - 44.9 % [facility] MCV 88.7 79.4 - 94.8 fL [facility] MCH 28.0 25.6 - 32.2 pg [facility] MCHC 31.5 (L) 32.2 - 35.5 GM/DL [facility] RDW 15.8 (H) 11.7 - 14.4 % [facility] Platelets 388 150 - 450 K/CU MM [facility] MPV 10.5 9.4 - 12.3 fL [facility] nRBC 0 0 - 0 /100 WBC [facility] % Neutros 71 % [facility] % Lymphs 22 % [facility] % Monos 6 % [facility] % Eos 0 % [facility] % Baso 0 % [facility] # Neutros 4.93 1.56 - 6.13 K/L [facility] # Lymphs 1.55 1.18 - 3.74 K/L [facility] # Monos 0.42 (H) 0.24 - 0.36 K/L [facility] # Eos 0.00 (L) 0.04 - 0.36 K/L [facility] # Baso 0.01 0.01 - 0.08 K/L [facility] Immature Granulocytes-Relative 1 0 - 1 % [facility] Specimen Blood Performing Organization Address City/State/Zipcode Phone Number [address] [phone] [place] Occult blood, stool (01/13/2019 10:18 PM CDT) Occult blood Negative Negative [facility] Specimen Stool Performing Organization Address City/State/[facility] Phone Number [facility] [address] [place] [phone] [place] ECG 12 lead (01/12/2019 5:33 PM CDT)Only the most recent of4 resultswithin the time period is included. Specimen Narrative Performed At Ventricular Rate 90 BPM GE MUSE Atrial Rate 90 BPM P-R Interval 154 ms QRS Duration 84 ms Q-T Interval 392 ms QTC Calculation(Bazett) 479 ms P [place] 49 degrees R [place] 5 degrees T [place] 48 degrees Normal sinus rhythm Normal ECG When compared with ECG of 12-JAN-2019 13:34, Premature ventricular complexes are no longer Present Questionable change in QRS axis Confirmed by Laine ZAMBRANO MICHAEL ([id number]) on 01/13/2019 7:17:28 AM Procedure Note Interface, External Ris In - 01/13/2019 7:17 AM CDT Ventricular Rate 90 BPM Atrial Rate 90 BPM P-R Interval 154 ms QRS Duration 84 ms Q-T Interval 392 ms QTC Calculation(Bazett) 479 ms P [place] 49 degrees R [place] 5 degrees T [place] 48 degrees Normal sinus rhythm Normal ECG When compared with ECG of 12-JAN-2019 13:34, Premature ventricular complexes are no longer Present Questionable change in QRS axis Confirmed by Laine ZAMBRANO MICHAEL ([id number]) on 01/13/2019 7:17:28 AM Performing Organization Address City/State/Zipcode Phone Number [facility]INA ONTIVEROS NM myocardial perfusion SPECT,pharm(Lexiscan) (01/12/2019 3:21 PM CDT) Specimen Narrative Performed At FINAL REPORT [facility] PROCEDURE: MYOCARDIAL PERFUSION SPECT IMAGING (Rest/Stress) CPT CODE: 16196 INDICATION: Elevated troponin CARDIOVASCULAR PROFILE: CAD History: None Symptoms: None Risk Factors: Tobacco use Medications: In [place] apparent, levothyroxine, gabapentin STRESS PROTOCOL: Pharmacologic stress was achieved with a 10-second intravenous infusion of Regadenoson 0.4 mg. The radiopharmaceutical was administered 30 seconds after the start of the Regadenoson infusion. IMAGING PROTOCOL: 10.4 mCi of Tc-99m sestamibi was injected intravenously at rest, and non-gated SPECT images were obtained. Then, 29.7 mCi of Tc-99m sestamibi was injected intravenously at peak stress, and gated SPECT images were obtained. Image quality is good. REST FINDINGS: HR: 93/min BP: 166/74 mmHg Prelim. EKG: Normal sinus rhythm. Perfusion: Mildly severity perfusion defects of the apical inferolateral wall segments. LV Volume: Normal. RV Volume: Normal. STRESS FINDINGS: HR: 110/min (68% of MPHR) BP: 158/50 mmHg Prelim. EKG: No ischemic changes. Symptoms: None (treatment not required). Perfusion: Moderate severity perfusion defects of apical inferolateral wall segments. Wall Motion: Normal (LVEF 71%). LV Volume: Not significantly changed from rest. IMPRESSION: 1. Abnormal study. 2. Abnormal myocardial perfusion. There is a moderate size, moderate severity, mostly reversible perfusion abnormality in the apical inferolateral segments of the LV. 3. Normal stress LVEF. 4. Normal extracardiac tracer distribution. 5. There is no prior study for comparison. Signed: Brigido Hoover MD Report Verified Date/Time:01/12/2019 16:05:30 Reading Location: [address] Reading Room Procedure Note Interface, External Ris In - 01/12/2019 5:53 PM CDT FINAL REPORT PROCEDURE: MYOCARDIAL PERFUSION SPECT IMAGING (Rest/Stress) CPT CODE: 78162 INDICATION: Elevated troponin CARDIOVASCULAR PROFILE: CAD History: None Symptoms: None Risk Factors: Tobacco use Medications: In [place] apparent, levothyroxine, gabapentin STRESS PROTOCOL: Pharmacologic stress was achieved with a 10-second intravenous infusion of Regadenoson 0.4 mg. The radiopharmaceutical was administered 30 seconds after the start of the Regadenoson infusion. IMAGING PROTOCOL: 10.4 mCi of Tc-99m sestamibi was injected intravenously at rest, and non-gated SPECT images were obtained. Then, 29.7 mCi of Tc-99m sestamibi was injected intravenously at peak stress, and gated SPECT images were obtained. Image quality is good. REST FINDINGS: HR: 93/min BP: 166/74 mmHg Prelim. EKG: Normal sinus rhythm. Perfusion: Mildly severity perfusion defects of the apical inferolateral wall segments. LV Volume: Normal. RV Volume: Normal. STRESS FINDINGS: HR: 110/min (68% of MPHR) BP: 158/50 mmHg Prelim. EKG: No ischemic changes. Symptoms: None (treatment not required). Perfusion: Moderate severity perfusion defects of apical inferolateral wall segments. Wall Motion: Normal (LVEF 71%). LV Volume: Not significantly changed from rest. IMPRESSION: 1. Abnormal study. 2. Abnormal myocardial perfusion. There is a moderate size, moderate severity, mostly reversible perfusion abnormality in the apical inferolateral segments of the LV. 3. Normal stress LVEF. 4. Normal extracardiac tracer distribution. 5. There is no prior study for comparison. Signed: Brigido Hoover MD Report Verified Date/Time: 01/12/2019 16:05:30 Reading Location: [id number] [facility] Reading Room Performing Organization Address City/State/Zipcode Phone Number [facility] Treadmill tolerance(Non-Nuclear Treadmill) (01/12/2019 1:47 PM CDT) Specimen Narrative Performed At Protocol Name Vijay Roovyn Time In Exercise Phase 00:01:00 Max. Systolic BP 158 mmHg Max Diastolic BP 50 mmHg Max Heart Rate 110 BPM Max Predicted Heart Rate 161 BPM Reason For Termination Predetermined end point Reason for Test Elevated Troponin Target HR Formula (220 - Age)*100% Arrhythmias Premature Ventricular Contractions Resting ECG Normal sinus rhythm ST Changes No Significant Changes Overall Impression Indeterminate due to pharmacological stress Chest Pain none HR Response To Exercise BP Response To Exercise levothyroxine,Lovenox,Neurontin Confirmed by fellow Ovidio Huffman ([id number]) on 01/12/2019 2:33:54 PM Confirmed by Laine ZAMBRANO MICHAEL ([id number]) on 01/14/2019 7:55:05 AM Procedure Note Interface, External Ris In - 01/14/2019 7:55 AM CDT Protocol Name Lexiscan Time In Exercise Phase 00:01:00 Max. Systolic BP 158 mmHg Max Diastolic BP 50 mmHg Max Heart Rate 110 BPM Max Predicted Heart Rate 161 BPM Reason For Termination Predetermined end point Reason for Test Elevated Troponin Target HR Formula (220 - Age)*100% Arrhythmias Premature Ventricular Contractions Resting ECG Normal sinus rhythm ST Changes No Significant Changes Overall Impression Indeterminate due to pharmacological stress Chest Pain none HR Response To Exercise BP Response To Exercise levothyroxine,Lovenox,Neurontin Confirmed by fellow Ovidio Huffman ([id number]) on 01/12/2019 2:33:54 PM Confirmed by Laine ZAMBRANO MICHAEL ([id number]) on 01/14/2019 7:55:05 AM Performing Organization Address City/State/Zipcode Phone Number [place] TSH (01/12/2019 6:58 AM CDT) TSH 1.50 0.35 - 4.94 uIU/mL [facility] Specimen Blood Performing Organization Address [facility] Phone Number [address] [address] [phone] CENTER T4 (01/12/2019 6:58 AM CDT) T4, Total 7.9 4.9 - 11.7 ug/dL [facility] Specimen Blood Performing Organization Address [facility] Phone Number [address] [phone] CENTER CBC (Hemogram only) (01/12/2019 2:46 AM CDT)Only the most recent of3 resultswithin the time period is included. WBC 7.2 3.5 - 10.5 K/L [facility] RBC 3.46 (L) 3.93 - 5.22 M/L [facility] Hemoglobin 9.7 (L) 11.2 - 15.7 GM/DL [facility] Hematocrit 30.0 (L) 34.1 - 44.9 % [facility] MCV 86.7 79.4 - 94.8 fL [facility] MCH 28.0 25.6 - 32.2 pg [facility] MCHC 32.3 32.2 - 35.5 GM/DL [facility] RDW 14.6 (H) 11.7 - 14.4 % [facility] Platelets 345 150 - 450 K/CU MM [facility] MPV 9.8 9.4 - 12.3 fL [facility] nRBC 0 0 - 0 /100 WBC [facility] Specimen Blood Performing Organization Address City/State/Zipcode Phone Number [facility] [address] [place] [address] [phone] CENTER Basic Metabolic Panel (01/11/2019 1:27 PM CDT)Only the most recent of5 resultswithin the time period is included. Sodium 137 136 - 145 meq/L [facility] Potassium 4.1 3.5 - 5.1 meq/L [facility] Chloride 103 98 - 107 meq/L [facility] CO2 28 22 - 29 meq/L [facility] BUN 5 (L) 7 - 21 mg/dL [facility] Creatinine 0.68 0.57 - 1.25 mg/dL [facility] Glucose 97 70 - 105 mg/dL [facility] Calcium 7.9 (L) 8.4 - 10.2 mg/dL [facility] EGFR 89Comment: ESTIMATED GFR IS mL/min/1.73 sq m [facility] NOT ACCURATE CREATININE [facility] CLEARANCE IN PREDICTING GLOMERULAR FILTRATION RATE. ESTIMATED GFR IS NOT APPLICABLE FOR DIALYSIS PATIENTS. Specimen Blood Performing Organization Address [facility] Phone Number [address] [address] CENTER Troponin I (01/11/2019 8:07 AM CDT)Only the most recent of4 resultswithin the time period is included. Troponin I 0.06 (H) 0.00 - 0.03 ng/mL [facility] Specimen Blood Narrative Performed At Troponin I (TnI) levels must be interpreted [facility] in the context of the presenting symptoms and the clinical findings. Elevated TnI levels indicate myocardial damage, but are not specific for ischemic heart disease. Elevated TnI levels are seen in patients with other cardiac conditions (including myocarditis and congestive heart failure), and slight TnI elevations occur in patients with other conditions, including sepsis, renal failure, acidosis, acute neurological disease, and persistent tachyarrhythmia. Performing Organization Address [facility] [place] [place] Phone Number [address] [phone] CENTER Magnesium (01/11/2019 5:20 AM CDT)Only the most recent of6 resultswithin the time period is included. Magnesium 1.8 1.6 - 2.6 mg/dL [facility] Specimen Blood Performing Organization Address [facility] Phone Number [address] [address] CENTER PT/aPTT (01/11/2019 3:59 AM CDT)Only the most recent of6 resultswithin the time period is included. Protime 14.9 (H) 11.9 - 14.2 seconds [facility] INR 1.2 <=5.9 [facility] PTT 90.9 (H) 22.5 - 36.0 seconds [facility] Specimen Blood Narrative Performed At Effective 12/31/2018: PT Reference Range [facility] Change New: 11.9-14.2Previous: 11.7-14.7 RECOMMENDED COUMADIN/WARFARIN INR THERAPY RANGES STANDARD DOSE: 2.0-3.0Includes: PROPHYLAXIS for venous thrombosis, systemic embolization; TREATMENT for venous thrombosis and/or pulmonary embolus. HIGH RISK: Target INR is 2.5-3.5 for patients wiht mechanical heart valves. Per heparin sliding scale Per heparin sliding scale Performing Organization Address City/[facility]/Zipcode Phone Number [address] [address] [place] Hemoglobin and hematocrit (01/11/2019 3:59 AM CDT)Only the most recent of8 resultswithin the time period is included. Hemoglobin 9.5 (L) 11.2 - 15.7 GM/DL [facility] Hematocrit 30.2 (L) 34.1 - 44.9 % [facility] Specimen Blood Performing Organization Address City/[facility]/Zipcode Phone Number [address] [address] CENTER XR abdomen / KUB 1 view (01/10/2019 6:22 PM CDT) Specimen Narrative Performed At FINAL REPORT [facility] Abdomen dated January 10, 2019 Comment: Abdomen was examined in the supine frontal position. Air is seen in the small and large bowel without dilatation to suggestmechanical obstruction or ileus.No mass, pathological calcification, or free air is present. Bilateral hip replacements are seen. Impression: No mechanical obstruction or ileus. Signed: Savannah Blanco MD Report Verified Date/Time:01/10/2019 18:44:41 Reading Location: [facility] B1 C013Y CT Body Reading Room Procedure Note Interface, External Ris In - 01/10/2019 6:46 PM CDT FINAL REPORT Abdomen dated January 10, 2019 Comment: Abdomen was examined in the supine frontal position. Air is seen in the small and large bowel without dilatation to suggest mechanical obstruction or ileus. No mass, pathological calcification, or free air is present. Bilateral hip replacements are seen. Impression: No mechanical obstruction or ileus. Signed: Savannah Blanco MD Report Verified Date/Time: 01/10/2019 18:44:41 Reading Location: [facility] C013Y CT Body Reading Room Performing Organization Address City/[facility]/Zipcode Phone Number [employer] TRANSFUSION SERVICE REPORT - SCAN (01/10/2019 5:51 PM CDT)Only the most recent of3 resultswithin the time period is included. Narrative Performed At aPTT (01/10/2019 12:57 PM CDT)Only the most recent of2 resultswithin the time period is included. PTT 41.1 (H) 22.5 - 36.0 seconds [facility] Specimen Blood Narrative Performed At 6 hours after starting heparin infusion and [facility] as indicated per sliding scale Performing Organization Address [facility] Phone Number [address] [address] CENTER Lipase (01/10/2019 12:57 PM CDT) Lipase 16 8 - 78 U/L [facility] Specimen Blood Performing Organization Address [facility] Phone Number [address] [address] CENTER Amylase (01/10/2019 12:57 PM CDT) Amylase 29 25 - 125 U/L [facility] Specimen Blood Performing Organization Address [facility] Phone Number [address] [address] CENTER US abdomen limited (01/10/2019 12:03 PM CDT) Specimen Narrative Performed At FINAL REPORT [employer] [facility] Abdominal ultrasound. Clinical history: abdomen pain Comparison study: None Findings: The liver is normal in appearance with a normal echotexture. It measures 12.4 cm in span. There is no evidence of intra or extrahepatic biliary dilatation with the common bile duct measuring four mm in size. The main portal vein diameter is 1.2 cm. The gallbladder is normal in appearance with no gallstones and no evidence of pericholecystic fluid. The pancreas is normal in appearance. The right kidney measures 11.3 x 5.3 x 4.9 cm. No ascites is present.The proximal aorta is not well seen. The remainder of the abdomen was not assessed. Impression: Unremarkable right upper quadrant ultrasound. No cause for the patient's pain identified. Signed: Daniel Lopez MD Report Verified Date/Time:01/10/2019 12:16:23 Reading Location: [address] Ortho Consult Reading Room Procedure Note Interface, External Ris In - 01/10/2019 12:18 PM CDT FINAL REPORT Limited Abdominal ultrasound. Clinical history: abdomen pain Comparison study: None Findings: The liver is normal in appearance with a normal echotexture. It measures 12.4 cm in span. There is no evidence of intra or extrahepatic biliary dilatation with the common bile duct measuring four mm in size. The main portal vein diameter is 1.2 cm. The gallbladder is normal in appearance with no gallstones and no evidence of pericholecystic fluid. The pancreas is normal in appearance. The right kidney measures 11.3 x 5.3 x 4.9 cm. No ascites is present. The proximal aorta is not well seen. The remainder of the abdomen was not assessed. Impression: Unremarkable right upper quadrant ultrasound. No cause for the patient's pain identified. Signed: Daniel Lopez MD Report Verified Date/Time: 01/10/2019 12:16:23 Reading Location: [facility] C013 Ortho Consult Reading Room Performing Organization Address City/State/Zipcode Phone Number [employer] Prepare Leuko-Red RBC (01/09/2019 11:54 PM CDT) CROSSMATCH COMPATIBLE SAFETRACE TX Unit ABO A Pos SAFETRACE TX UNIT NUMBER [id number] SAFETRACE TX Status TX_TIMEINCHART SAFETRACE TX Blood Bank Product RED BLOOD CELLS SAFETRACE TX PRODUCT CODE [id number] SAFETRACE TX Specimen Other Performing Organization Address City/[facility] Phone Number SAFETRACE TX REPORT OF PROCEDURE - ENDOSCOPY URL (01/09/2019 12:57 PM CDT) Narrative Performed At REPORT OF PROCEDURE - ENDOSCOPY URL (01/09/2019 12:49 PM CDT) Narrative Performed At H. pylori antigen, stool (01/08/2019 9:22 PM CDT) H. pylori Antigen Not detected Not detected [facility] Comment: [facility] Antimicrobials, proton pump inhibitors, and bismuth preparations inhibit H. pylori and ingestion up to two weeks prior to testing may cause false negative results. If clinically indicated the test should be repeated on a new specimen obtained two weeks after discontinuing treatment. Specimen Stool Narrative Performed At Performing Lab [facility] *SPL [facility], [address] [place] [phone] Ryanne Stephenson MD, PhD Performing Organization Address [facility] [place], [place] Phone Number [facility], [place] [address] INCORPORATED [phone] [facility] ECHOCARDIOGRAM REPORT - SCAN (01/08/2019 9:01 PM CDT) Narrative Performed At B-type Natriuretic Factor (BNP) (01/08/2019 11:47 AM CDT) BNP 526 (H) 0 - 100 pg/mL [facility] Specimen Blood Performing Organization Address City/[facility]/Zipcode Phone Number [address] [address] CENTER Potassium (01/08/2019 11:46 AM CDT) Potassium 3.9 3.5 - 5.1 meq/L [facility] Specimen Blood Performing Organization Address City/[facility]/Zipcode Phone Number [facility] MEDICAL [address] [place] [address] CENTER 2D Echo W/Doppler(CW/PW/Color) (01/08/2019 11:22 AM CDT) Ejection Fraction [facility]CHO [facility]ART[facility] Specimen Narrative Performed At Transthoracic Echocardiography Report (TTE) [facility]ART[facility] Demographics Patient Name Daxa ALDANA of Study 01/08/2019 [id number] GenderFemale Visit Number [id number] RaceCaucasian [id number] m Number [id number] Number Date of Birth1960 Referring Physician Conchita Recio Age58 year(s) Supervisor Doping Kayley Elmore [facility] Olive Quinones MD [facility] Physician Procedure Type of Study TTE procedure:2DECHO W DOPPLER(CW/PW/COLOR) (Routine) Indications:Known or suspected cardiomyopathy. Clinical History HGB 7.8 HCT 24.4 % s/p AVR + MVR (both mechanical, more than 10 y.a.) Height: 66 inches Weight: 60.33 kg (133 lbs) BSA: 1.68 m^2 BMI: 21.47 kg/m^2 HR: 81 bpm BP: 84/52 mmHg Summary The left ventricle is chamber size (by vol index) is normal (female - LVED vol - 29-61ml/m2). Global LV systolic function hyperdynamic . LVEF by Hidalgo's method of disk assessment is increased (>70%) . Degree of diastolic dysfunction (LAP assessment) is inconclusive due to prosthetic MV . A mechanical AoV prosthesis is visualized .Prosthetic AoV systolic gradients are moderate to severely increased . AoV dimensionless obstructive index (DOI)) is 0.32 and AVR acceleration time=84 msec which are within normal parameters. Gradient values can be infuenced by severe anemia ( Hgb=7.8 ) and increased C.O of 10 L /min. A mechanical MV prosthesis is visualized . Prosthetic MV systolic gradients are severely increased; Mean MVR gradient =10mmHg at pulse rate of 85 bpm. . PHT=70 msec. Gradient values can be infuenced by severe anemia ( Hgb=7.8 ) and increased C.O of 10 L /min. Estimated peak systolic PA pressure is 30-35 mmHg . Recommend repeat TTE when anemia and other causes of increased C.O . state are corrected to re assess AVR and MVR function Previous Study No prior studies available for comparison. Signature Findings Technical Quality: Technically adequate exam. Left Ventricle The left ventricle is chamber size (by vol index) is normal (female - LVED vol - 29-61ml/m2). No ev idence of LV hypertrophy. Septal motion is ab normal, likely related to prior cardiac surgery . Th e other segments are hyperdynamic. Global LV sy stolic function hyperdynamic . LVEF by Hidalgo's me thod of disk assessment is increased (>70%) . De gree of diastolic dysfunction (LAP assessment) is in conclusive due to prosthetic MV . Left AtriumLA size is moderately enlarged (42-48 ml/m2) . Right VentricleThe right ventricular chamber size and systolic fu nction are within normal limits. Right Atrium RA cavity size is normal . Aortic Valve A mechanical AoV prosthesis is visualized .P rosthetic AoV systolic gradients are moderate to se verely increased . Ao V dimensionless obstructive index (DOI)) is 0.32 an d AVR acceleration time=84 msec which are wi thin normal parameters. Gradient values can be in fuenced by severe anemia ( Hgb=7.8 ) and in creased C.O of 10 L /min. Mitral Valve A mechanical MV prosthesis is visualized . Pr osthetic MV systolic gradients are severely in creased; Mean MVR gradient=10mmHg at pulse rate of 85 bpm. No TTE evidence of MR . PHT=70 msec. Gr adient values can be infuenced by severe anemia ( Hg b=7.8 ) and increased C.O of 10 L /min. Tricuspid ValveTV structure is normal. Mi ld tricuspid regurgitation. Es timated peak systolic PA pressure is 30-35 mmHg . Pulmonic Valve Normal PV structure and function by limited views an d Doppler. AortaAortic root size (SInus of Valsalva diameter) is no rmal . PericardiumNo pericardial effusion is visualized. IVC/SVC/PA/PV/PleuralThe estimated RA pressure by IVC dynamics 0-5mmHg . Th e inferior vena cava size is normal . Th e inferior vena cava is adequately visualized. Chambers/Structures Left Atrium LA Volume: 76.04 ml LA Area: 22.51 cm^2 LA Vol. Index: 45 ml/m^2 Left Ventricle LVIDd: 5.13 cm LVIDs: 3.08 cm LV Septum Diastolic: 0.97 cm LV PW Diastolic: 1.03 cmLV FS: 40 % LVEDV Hidalgo's:98.44 ml LVESV Hidalgo's:23.64 mlLVEDVI: 59 ml/m^2 LVEF Hidalgo's: 76 %L VESVI: 14 ml/m^2 LVOT Diameter: 2.4 cm Aorta Ao Root S of Kathia.: 2.86 cm Doppler/Quantitative Measurements Mitral Valve P1/2t: 70 msec Mean Velocity: 1.56 m/s Mean Gradient: 10.96 mmHg Area (continuity): 2.13 cm^2 MV Area (PHT): 3.14 cm^2 MV VTI: 56.74 cm MV Star. Peak: 2.52 m/s Aortic Valve Peak Velocity: 3.89 m/sMean Velocity: 2.76 m/s Peak Gradient: 60.57 mmHgMean Gradient: 33.21 mmHg AV Area (continuity): 1.44 cm^2 AV VTI: 83.63 cm AV DVI: 0.32 LVOT Peak Velocity: 1.16 m/s Peak Gradient: 5.38 mmHg Mean Velocity: 0.76 m/s Mean Gradient: 2.72 mmHg LVOT Diameter: 2.4 cm LVOT VTI: 26.7 cm LVOT Area: 4.52 cm^2LVOT SV:120.73 ml LVOT CO: 9.78 l/min LVOT CI: 5.82 l/min/m^2 Tricuspid Valve TR Velocity: 2.58 m/s TR Gradient: 26.56 mmHg Procedure Note Interface, External Ris In - 01/08/2019 1:27 PM CDT Transthoracic Echocardiography Report (TTE) Demographics Patient Name PRISCILLA ALDANA Date of Study 01/08/2019 Gender Female Visit Number [id number] Race Room Number [id number] Number Date of 1960 Referring Physician Conchita Recio Age 58 year(s) Supervisor Doping Kyaley Elmore, [facility] [employer] Drying Machine Operator Elizabeth Cabral, Interpreting Colby Jaime MD RDCS Physician Procedure Type of Study TTE procedure:2DECHO W DOPPLER(CW/PW/COLOR) (Routine) Indications:Known or suspected cardiomyopathy. Clinical History HGB 7.8 HCT 24.4 % s/p AVR + MVR (both mechanical, more than 10 y.a.) Height: 66 inches Weight: 60.33 kg (133 lbs) BSA: 1.68 m^2 BMI: 21.47 kg/m^2 HR: 81 bpm BP: 84/52 mmHg Summary The left ventricle is chamber size (by vol index) is normal (female - LVED vol - 29-61ml/m2). Global LV systolic function hyperdynamic . LVEF by Hidalgo's method of disk assessment is increased (>70%) . Degree of diastolic dysfunction (LAP assessment) is inconclusive due to prosthetic MV . A mechanical AoV prosthesis is visualized .Prosthetic AoV systolic gradients are moderate to severely increased . AoV dimensionless obstructive index (DOI)) is 0.32 and AVR acceleration time=84 msec which are within normal parameters. Gradient values can be infuenced by severe anemia ( Hgb=7.8 ) and increased C.O of 10 L /min. A mechanical MV prosthesis is visualized . Prosthetic MV systolic gradients are severely increased; Mean MVR gradient =10mmHg at pulse rate of 85 bpm. . PHT=70 msec. Gradient values can be infuenced by severe anemia ( Hgb=7.8 ) and increased C.O of 10 L /min. Estimated peak systolic PA pressure is 30-35 mmHg . Recommend repeat TTE when anemia and other causes of increased C.O . state are corrected to re assess AVR and MVR function Previous Study No prior studies available for comparison. Signature Findings Technical Quality: Technically adequate exam. Left Ventricle The left ventricle is chamber size (by vol index) is normal (female - LVED vol - 29-61ml/m2). No evidence of LV hypertrophy. Septal motion is abnormal, likely related to prior cardiac surgery . The other segments are hyperdynamic. Global LV systolic function hyperdynamic . LVEF by Hidalgo's method of disk assessment is increased (>70%) . Degree of diastolic dysfunction (LAP assessment) is inconclusive due to prosthetic MV . Left Atrium LA size is moderately enlarged (42-48 ml/m2) . Right Ventricle The right ventricular chamber size and systolic function are within normal limits. Right Atrium RA cavity size is normal . Aortic Valve A mechanical AoV prosthesis is visualized .Prosthetic AoV systolic gradients are moderate to severely increased . AoV dimensionless obstructive index (DOI)) is 0.32 and AVR acceleration time=84 msec which are within normal parameters. Gradient values can be infuenced by severe anemia ( Hgb=7.8 ) and increased C.O of 10 L /min. Mitral Valve A mechanical MV prosthesis is visualized . Prosthetic MV systolic gradients are severely increased; Mean MVR gradient=10mmHg at pulse rate of 85 bpm. No TTE evidence of MR . PHT=70 msec. Gradient values can be infuenced by severe anemia ( Hgb=7.8 ) and increased C.O of 10 L /min. Tricuspid Valve TV structure is normal. Mild tricuspid regurgitation. Estimated peak systolic PA pressure is 30-35 mmHg . Pulmonic Valve Normal PV structure and function by limited views and Doppler. Aorta Aortic root size (SInus of Valsalva diameter) is normal . Pericardium No pericardial effusion is visualized. IVC/SVC/PA/PV/Pleural The estimated RA pressure by IVC dynamics 0-5mmHg . The inferior vena cava size is normal . The inferior vena cava is adequately visualized. Chambers/Structures Left Atrium LA Volume: 76.04 ml LA Area: 22.51 cm^2 LA Vol. Index: 45 ml/m^2 Left Ventricle LVIDd: 5.13 cm LVIDs: 3.08 cm LV Septum Diastolic: 0.97 cm LV PW Diastolic: 1.03 cm LV FS: 40 % LVEDV Hidalgo's:98.44 ml LVESV Hidalgo's:23.64 ml LVEDVI: 59 ml/m^2 LVEF Hidalgo's: 76 % LVESVI: 14 ml/m^2 LVOT Diameter: 2.4 cm Aorta Ao Root S of Kathia.: 2.86 cm Doppler/Quantitative Measurements Mitral Valve P1/2t: 70 msec Mean Velocity: 1.56 m/s Mean Gradient: 10.96 mmHg Area (continuity): 2.13 cm^2 MV Area (PHT): 3.14 cm^2 MV VTI: 56.74 cm MV Star. Peak: 2.52 m/s Aortic Valve Peak Velocity: 3.89 m/s Mean Velocity: 2.76 m/s Peak Gradient: 60.57 mmHg Mean Gradient: 33.21 mmHg AV Area (continuity): 1.44 cm^2 AV VTI: 83.63 cm AV DVI: 0.32 LVOT Peak Velocity: 1.16 m/s Peak Gradient: 5.38 mmHg Mean Velocity: 0.76 m/s Mean Gradient: 2.72 mmHg LVOT Diameter: 2.4 cm LVOT VTI: 26.7 cm LVOT Area: 4.52 cm^2 LVOT SV:120.73 ml LVOT CO: 9.78 l/min LVOT CI: 5.82 l/min/m^2 Tricuspid Valve TR Velocity: 2.58 m/s TR Gradient: 26.56 mmHg Performing Organization Address City/State/Zipcode Phone Number [facility] Procalcitonin (01/08/2019 9:30 AM CDT) Procalcitonin 0.05 (H) <0.05 ng/mL [facility] Specimen Blood Narrative Performed At SEPSIS RISK (ng/mL) [facility] Low:0.05-0.50 Intermediate: 0.51-2.00 High: >=2.01 Performing Organization Address City/State/Zipcode Phone Number [address] [address] [place] Lactic acid, venous (01/08/2019 9:30 AM CDT) Lactate, Venous 0.7 0.5 - 2.2 mmol/L [facility] Specimen Blood Performing Organization Address [facility] Phone Number [address] [address] [place] XR chest 1 view portable / bedside (01/08/2019 8:04 AM CDT)Only the most recent of2 resultswithin the time period is included. Specimen Narrative Performed At FINAL REPORT [facility] Follow up Chest radiograph Clinical History: Pulmonary edema Comparison: January 07, 2019 Views: One AP lordotic Chest x-ray: The cardiac and mediastinal silhouettes are unchanged.There is no evidence of a pneumothorax.There is evidence of tiny bilateral pleural effusions versus chronic pleural thickening.There is no evidence of overt cardiac failure. Increased interstitial markings are seen with patchy airspace disease. These findings have improved. Sternotomy changes are present with two prosthetic valves suspected. The increased interstitial findings may be secondary to an acute process such as inflammatory process or pulmonary edema. Chronic interstitial disease cannot be excluded Impression: Decreased pulmonary vascular congestion and improved inspiratory effort. Signed: Shobha Wilks MD Report Verified Date/Time:01/08/2019 08:17:31 Reading Location: [facility] Radiology Reading Room Procedure Note Interface, External Ris In - 01/08/2019 8:25 AM CDT FINAL REPORT Follow up Chest radiograph Clinical History: Pulmonary edema Comparison: January 07, 2019 Views: One AP lordotic Chest x-ray: The cardiac and mediastinal silhouettes are unchanged. There is no evidence of a pneumothorax. There is evidence of tiny bilateral pleural effusions versus chronic pleural thickening. There is no evidence of overt cardiac failure. Increased interstitial markings are seen with patchy airspace disease. These findings have improved. Sternotomy changes are present with two prosthetic valves suspected. The increased interstitial findings may be secondary to an acute process such as inflammatory process or pulmonary edema. Chronic interstitial disease cannot be excluded Impression: Decreased pulmonary vascular congestion and improved inspiratory effort. Signed: Shobha Wilks MD Report Verified Date/Time: 01/08/2019 08:17:31 Reading Location: [facility] Radiology Reading Room Performing Organization Address [facility] [place] [place] Phone Number [facility] Trans[employer]use Leuko-Red RBC (01/08/2019 5:54 AM CDT)Only the most recent of2 resultswithin the time period is included.Iron, TIBC, % sat. (without ferritin) (01/08/2019 5:39 AM CDT) Iron 27.0 (L) 40.0 - 160.0 ug/dL [facility] TIBC 196 (L) 250 - 450 ug/dL [facility] Iron % Saturation 14 (L) 20 - 55 % [facility] Specimen Blood Performing Organization Address [facility] [place] [place] Phone Number [address] [id number] [phone] CENTER Ferritin (01/08/2019 5:39 AM CDT) Ferritin 346 (H) 5 - 275 ng/mL [facility] Specimen Blood Performing Organization Address [facility] [place], [place] Phone Number [place] [phone] [place] [address] CENTER ABORH, manual (01/07/2019 11:52 PM CDT) ABO Grouping A [facility] Rh Factor POS [facility] Specimen Blood Performing Organization Address [facility]/Zipcode Phone Number [facility] [address] [place] [address] Type and screen, automated (01/07/2019 11:24 PM CDT) ABO/RH AUTOMATED (BEAKER) A POSITIVE [facility] Ab Scrn NEGATIVE [facility] Specimen Blood Performing Organization Address City/[facility] Phone Number [facility] [address] [place] [address] Thromboelastograph (TEG) (01/07/2019 10:38 PM CDT) TEG Activated Clotting Time 8.4 (H) 4.0 - 7.0 minutes [facility] TEG Fibrinogen Activity 71.7 61.0 - 73.0 degrees [facility] TEG Platelet Aggregation 68.2 (H) 55.0 - 65.0 MM [facility] TEG Fibrinolysis 0.0 0.0 - 5.0 % [facility] TEG-H Activated Clotting Time 8.9 (H) 4.0 - 7.0 minutes [facility] TEG-H Fibrinogen Activity 70.1 61.0 - 73.0 degrees [facility] TEG-H Platelet Aggregation 65.3 (H) 55.0 - 65.0 MM [facility] TEG-H Fibrinolysis 0.0 0.0 - 5.0 % [facility] Specimen Blood Performing Organization Address City/[facility]/Zipcode Phone Number [facility] [address] [place] [id number] CENTER Fibrinogen (01/07/2019 10:06 PM CDT) Fibrinogen 509 (H) 225 - 434 mg/dl [facility] Specimen Blood Performing Organization Address City/[facility]/Zipcode Phone Number [facility] [address] [place], [place] [phone] [place] Comprehensive metabolic panel (01/07/2019 9:57 PM CDT) Protein, Total 5.8 (L) 6.0 - 8.3 gm/dL [facility] Albumin 3.0 (L) 3.5 - 5.0 g/dL [facility] Alkaline Phosphatase 56 40 - 150 U/L [facility] Total Bilirubin 0.7 0.2 - 1.2 mg/dL [facility] Sodium 139 136 - 145 meq/L [facility] Potassium 3.4 (L) 3.5 - 5.1 meq/L [facility] Chloride 109 (H) 98 - 107 meq/L [facility] CO2 23 22 - 29 meq/L [facility] BUN 9 7 - 21 mg/dL [facility] Creatinine 0.75 0.57 - 1.25 mg/dL [facility] Glucose 102 70 - 105 mg/dL [facility] Calcium 7.1 (L) 8.4 - 10.2 mg/dL [facility] AST 25 5 - 34 U/L [facility] ALT 11 6 - 55 U/L [facility] EGFR 79Comment: ESTIMATED GFR mL/min/1.73 sq m [facility] IS NOT ACCURATE [facility] CREATININE CLEARANCE IN PREDICTING GLOMERULAR FILTRATION RATE. ESTIMATED GFR IS NOT APPLICABLE FOR DIALYSIS PATIENTS. Specimen Blood Performing Organization Address City/State/Zipcode Phone Number [facility] [address] [place], [place] [phone] [place] after 03/27/2018 Insurance Payer Benefit Plan / Subscriber ID Type Phone Address Group [employer] - [employer] MEDICARE xxxxxxxx [facility] [phone] [address] MEDICARE MGD HMO POS [id number] [place] [address] Advance Directives For more information, please contact:[place] [address] [address] KnowleslupeBaton [place], [place] [phone] Code Status Date Activated Date Inactivated Comments Full Code 01/07/2019 9:47 PM 01/17/2019 2:52 PM This code status was determined by: Patient
--- OUTSIDE RECORDS SUMMARY | 2019-03-28 17:03 | XMS REPORT ---
:1960 [facility] Address [address] [place] [address] [address] [place] [address] Care Team Providers Name Role Phone MELANIE ANTHONY Unavailable Unavailable Problems This patient has no known problems. Allergies, Adverse Reactions, Alerts This patient has no known allergies or adverse reactions. Medications This patient has no known medications. Results Test Description Test Time Test Comments Text Results Atomic Results Result Comments PROTHROMBIN TIME/INR 2019-01-17 06:03:00 Test Item Value Reference Range Comments PROTIME (BEAKER) (test qhhn=235) 14.0 seconds 11.9-14.2 INR (BEAKER) (test nuem=551) 1.1 <=5.9 Effective 12/31/2018: PT Reference Range ChangeNew: 11.9-14.2 Previous: 11.7- 14.7RECOMMENDED COUMADIN/WARFARIN INR THERAPY RANGESSTANDARD DOSE: 2.0-3.0 Includes: PROPHYLAXIS for venous thrombosis, systemic embolization; TREATMENT for venous thrombosis and/or pulmonary embolus.HIGH RISK: Target INR is2.5-3.5 for patients wiht mechanical heart valves.While on warfarin.PROTHROMBIN TIME/ [id number] 06:24:00 Test Item Value Reference Range Comments PROTIME (BEAKER) (test xqax=265) 13.2 seconds 11.9-14.2 INR (BEAKER) (test eydl=984) 1.1 <=5.9 Effective 12/31/2018: PT Reference Range ChangeNew: 11.9-14.2 Previous: 11.7- 14.7RECOMMENDED COUMADIN/WARFARIN INR THERAPY RANGESSTANDARD DOSE: 2.0-3.0 Includes: PROPHYLAXIS for venous thrombosis, systemic embolization; TREATMENT for venous thrombosis and/or pulmonary embolus.HIGH RISK: Target INR is2.5-3.5 for patients wiht mechanical heart valves.While on warfarin.CBC W/PLT COUNT &amp ; AUTO [id number] 06:20:00 Test Item Value Reference Range Comments WHITE BLOOD CELL COUNT (BEAKER) (test bsrc=266) 7.0 K/ L 3.5-10.5 RED BLOOD CELL COUNT (BEAKER) (test gzrh=433) 3.72 M/ L 3.93-5.22 HEMOGLOBIN (BEAKER) (test jhkg=893) 10.4 GM/DL 11.2-15.7 HEMATOCRIT (BEAKER) (test vqpn=352) 33.0 % 34.1-44.9 MEAN CORPUSCULAR VOLUME (BEAKER) (test yuzf=782) 88.7 fL 79.4-94.8 MEAN CORPUSCULAR HEMOGLOBIN (BEAKER) (test 28.0 pg 25.6-32.2 dvfy=631) MEAN CORPUSCULAR HEMOGLOBIN CONC (BEAKER) (test 31.5 GM/DL 32.2-35.5 temn=745) RED CELL DISTRIBUTION WIDTH (BEAKER) (test 15.8 % 11.7-14.4 mxup=992) PLATELET COUNT (BEAKER) (test nnpg=429) 388 K/CU MM 150-450 MEAN PLATELET VOLUME (BEAKER) (test edtu=049) 10.5 fL 9.4-12.3 NUCLEATED RED BLOOD CELLS (BEAKER) (test 0 /100 WBC 0-0 yirl=769) NEUTROPHILS RELATIVE PERCENT (BEAKER) (test 71 % odkh=288) LYMPHOCYTES RELATIVE PERCENT (BEAKER) (test 22 % tpge=693) MONOCYTES RELATIVE PERCENT (BEAKER) (test 6 % vody=654) EOSINOPHILS RELATIVE PERCENT (BEAKER) (test 0 % vdqr=353) BASOPHILS RELATIVE PERCENT (BEAKER) (test 0 % agbh=187) NEUTROPHILS ABSOLUTE COUNT (BEAKER) (test 4.93 K/ L 1.56-6.13 lqvg=061) LYMPHOCYTES ABSOLUTE COUNT (BEAKER) (test 1.55 K/ L 1.18-3.74 oqac=389) MONOCYTES ABSOLUTE COUNT (BEAKER) (test 0.42 K/ L 0.24-0.36 nvug=978) EOSINOPHILS ABSOLUTE COUNT (BEAKER) (test 0.00 K/ L 0.04-0.36 whta=129) BASOPHILS ABSOLUTE COUNT (BEAKER) (test 0.01 K/ L 0.01-0.08 jotk=044) IMMATURE GRANULOCYTES-RELATIVE PERCENT (BEAKER) 1 % 0-1 (test rqhc=9794) PROTHROMBIN TIME/[id number] 06:35:00 Test Item Value Reference Range Comments PROTIME (BEAKER) (test bech=369) 14.7 seconds 11.9-14.2 INR (BEAKER) (test iovx=077) 1.2 <=5.9 Effective 12/31/2018: PT Reference Range ChangeNew: 11.9-14.2 Previous: 11.7- 14.7RECOMMENDED COUMADIN/WARFARIN INR THERAPY RANGESSTANDARD DOSE: 2.0-3.0 Includes: PROPHYLAXIS for venous thrombosis, systemic embolization; TREATMENT for venous thrombosis and/or pulmonary embolus.HIGH RISK: Target INR is2.5-3.5 for patients wiht mechanical heart valves.OCCULT BLOOD, [id number] 23:23:00 Test Item Value Reference Range Comments FECAL OCCULT BLOOD (BEAKER) (test jkpr=133) Negative Negative PROTHROMBIN TIME/[id number] 07:00:00 Test Item Value Reference Range Comments PROTIME (BEAKER) (test fzyb=911) 13.9 seconds 11.9-14.2 INR (BEAKER) (test hdfr=520) 1.1 <=5.9 Effective 12/31/2018: PT Reference Range ChangeNew: 11.9-14.2 Previous: 11.7- 14.7RECOMMENDED COUMADIN/WARFARIN INR THERAPY RANGESSTANDARD DOSE: 2.0-3.0 Includes: PROPHYLAXIS for venous thrombosis, systemic embolization; TREATMENT for venous thrombosis and/or pulmonary embolus.HIGH RISK: Target INR is2.5-3.5 for patients wiht mechanical heart valves.CBC W/PLT COUNT & AUTO [id number] 06:52:00 Test Item Value Reference Range Comments WHITE BLOOD CELL COUNT (BEAKER) (test dmws=606) 7.5 K/ L 3.5-10.5 RED BLOOD CELL COUNT (BEAKER) (test kmvv=193) 3.86 M/ L 3.93-5.22 HEMOGLOBIN (BEAKER) (test mjah=583) 10.7 GM/DL 11.2-15.7 HEMATOCRIT (BEAKER) (test tqvs=541) 33.6 % 34.1-44.9 MEAN CORPUSCULAR VOLUME (BEAKER) (test ullx=950) 87.0 fL 79.4-94.8 MEAN CORPUSCULAR HEMOGLOBIN (BEAKER) (test 27.7 pg 25.6-32.2 dkcf=204) MEAN CORPUSCULAR HEMOGLOBIN CONC (BEAKER) (test 31.8 GM/DL 32.2-35.5 hlrd=735) RED CELL DISTRIBUTION WIDTH (BEAKER) (test 14.8 % 11.7-14.4 vumh=428) PLATELET COUNT (BEAKER) (test fpnn=832) 383 K/CU MM 150-450 MEAN PLATELET VOLUME (BEAKER) (test vngk=329) 9.8 fL 9.4-12.3 NUCLEATED RED BLOOD CELLS (BEAKER) (test 0 /100 WBC 0-0 ionj=905) NEUTROPHILS RELATIVE PERCENT (BEAKER) (test 74 % ujep=388) LYMPHOCYTES RELATIVE PERCENT (BEAKER) (test 19 % wzdm=569) MONOCYTES RELATIVE PERCENT (BEAKER) (test 5 % tyoi=718) EOSINOPHILS RELATIVE PERCENT (BEAKER) (test 0 % itec=614) BASOPHILS RELATIVE PERCENT (BEAKER) (test 0 % dhcz=876) NEUTROPHILS ABSOLUTE COUNT (BEAKER) (test 5.58 K/ L 1.56-6.13 fbvh=211) LYMPHOCYTES ABSOLUTE COUNT (BEAKER) (test 1.39 K/ L 1.18-3.74 vieb=598) MONOCYTES ABSOLUTE COUNT (BEAKER) (test 0.36 K/ L 0.24-0.36 hhmb=281) EOSINOPHILS ABSOLUTE COUNT (BEAKER) (test 0.00 K/ L 0.04-0.36 aqen=469) BASOPHILS ABSOLUTE COUNT (BEAKER) (test 0.02 K/ L 0.01-0.08 hnwe=373) IMMATURE GRANULOCYTES-RELATIVE PERCENT (BEAKER) 2 % 0-1 (test fzcw=1668) MYOCARD IMAGING, MULTI, PHARM, [id number] 16:05:00FINAL REPORT PROCEDURE: MYOCARDIAL PERFUSION SPECT IMAGING (Rest/Stress)CPT CODE : 44100 INDICATION: Elevated troponin CARDIOVASCULAR PROFILE:CAD History: NoneSymptoms: NoneRisk Factors: Tobacco useMedications: In [place] apparent, levothyroxine, gabapentin STRESS PROTOCOL:Pharmacologic stress was achieved with a 10-second intravenous infusion of Regadenoson 0.4 mg. The radiopharmaceutical was administered 30 seconds after the start of the Regadenoson infusion. IMAGING PROTOCOL:10.4 mCi of Tc-99m sestamibi was injected intravenously at rest, and non-gated SPECT images were obtained. Then, 29.7 mCi of Tc-99m sestamibi was injected intravenously at peak stress, and gated SPECT images were obtained. Image quality is good. REST FINDINGS:HR: 93/ minBP: 166/74 mmHgPrelim. EKG: Normal sinus rhythm.Perfusion: Mildly severity perfusion defects of the apical inferolateral wall segments.LV Volume: Normal.RV Volume: Normal. STRESS FINDINGS:HR: 110/min (68% of MPHR)BP: 158/50 mmHgPrelim. EKG: No ischemic changes.Symptoms: None (treatment not required) .Perfusion: Moderate severity perfusion defects of apical inferolateral wall segments.Wall Motion: Normal (LVEF 71%).LV Volume: Not significantly changed from rest. IMPRESSION:1. Abnormal study.2. Abnormal myocardial perfusion. There is a moderate size, moderate severity, mostly reversible perfusion abnormality in the apical inferolateral segments of the LV.3. Normal stress LVEF.4. Normal extracardiac tracer distribution.5. There is no prior study for comparison. Signed: Maeve Hoover MDReport Verified Date/Time: 01/12/2019 16:05:30 Reading Location: [address] Reading Room [id number] 08:57:00 Test Item Value Reference Range Comments THYROID STIMULATING HORMONE (BEAKER) (test 1.50 uIU/mL 0.35-4.94 wmdo=033) [id number] 08:56:00 Test Item Value Reference Range Comments T4 TOTAL (BEAKER) (test ynqa=495) 7.9 ug/dL 4.9-11.7 PROTHROMBIN TIME/[id number] 03:12:00 Test Item Value Reference Range Comments PROTIME (BEAKER) (test ombk=326) 14.0 seconds 11.9-14.2 INR (BEAKER) (test vtfq=008) 1.1 <=5.9 Effective 12/31/2018: PT Reference Range ChangeNew: 11.9-14.2 Previous: 11.7- 14.7RECOMMENDED COUMADIN/WARFARIN INR THERAPY RANGESSTANDARD DOSE: 2.0-3.0 Includes: PROPHYLAXIS for venous thrombosis, systemic embolization; TREATMENT for venous thrombosis and/or pulmonary embolus.HIGH RISK: Target INR is2.5-3.5 for patients wiht mechanical heart valves.CBC (HEMOGRAM ONLY)2019-01-12 03:04:00 Test Item Value Reference Range Comments WHITE BLOOD CELL COUNT (BEAKER) (test otcz=922) 7.2 K/ L 3.5-10.5 RED BLOOD CELL COUNT (BEAKER) (test najm=829) 3.46 M/ L 3.93-5.22 HEMOGLOBIN (BEAKER) (test loqh=543) 9.7 GM/DL 11.2-15.7 HEMATOCRIT (BEAKER) (test eymv=797) 30.0 % 34.1-44.9 MEAN CORPUSCULAR VOLUME (BEAKER) (test fqnc=426) 86.7 fL 79.4-94.8 MEAN CORPUSCULAR HEMOGLOBIN (BEAKER) (test 28.0 pg 25.6-32.2 tqwb=407) MEAN CORPUSCULAR HEMOGLOBIN CONC (BEAKER) (test 32.3 GM/DL 32.2-35.5 nsts=566) RED CELL DISTRIBUTION WIDTH (BEAKER) (test 14.6 % 11.7-14.4 sizj=857) PLATELET COUNT (BEAKER) (test mngg=266) 345 K/CU MM 150-450 MEAN PLATELET VOLUME (BEAKER) (test dijf=678) 9.8 fL 9.4-12.3 NUCLEATED RED BLOOD CELLS (BEAKER) (test 0 /100 WBC 0-0 irgv=165) CBC (HEMOGRAM ONLY)2019-01-11 15:42:00 Test Item Value Reference Range Comments WHITE BLOOD CELL COUNT (BEAKER) (test txus=963) 7.5 K/ L 3.5-10.5 RED BLOOD CELL COUNT (BEAKER) (test daze=233) 3.65 M/ L 3.93-5.22 HEMOGLOBIN (BEAKER) (test qwgb=959) 10.1 GM/DL 11.2-15.7 HEMATOCRIT (BEAKER) (test llsp=594) 32.4 % 34.1-44.9 MEAN CORPUSCULAR VOLUME (BEAKER) (test xiyh=074) 88.8 fL 79.4-94.8 MEAN CORPUSCULAR HEMOGLOBIN (BEAKER) (test 27.7 pg 25.6-32.2 iamq=112) MEAN CORPUSCULAR HEMOGLOBIN CONC (BEAKER) (test 31.2 GM/DL 32.2-35.5 zzmj=216) RED CELL DISTRIBUTION WIDTH (BEAKER) (test 14.6 % 11.7-14.4 foto=905) PLATELET COUNT (BEAKER) (test bmgg=427) 353 K/CU MM 150-450 MEAN PLATELET VOLUME (BEAKER) (test ktdg=111) 9.7 fL 9.4-12.3 NUCLEATED RED BLOOD CELLS (BEAKER) (test 0 /100 WBC 0-0 xbpy=658) BASIC METABOLIC [id number] 14:05:00 Test Item Value Reference Range Comments SODIUM (BEAKER) (test 137 meq/L 136-145 mlvf=470) POTASSIUM (BEAKER) (test 4.1 meq/L 3.5-5.1 sunt=856) CHLORIDE (BEAKER) (test 103 meq/L 98-107 smir=230) CO2 (BEAKER) (test 28 meq/L 22-29 vnht=625) BLOOD UREA NITROGEN 5 mg/dL 7-21 (BEAKER) (test bwwd=731) CREATININE (BEAKER) (test 0.68 mg/dL 0.57-1.25 pcgt=568) GLUCOSE RANDOM (BEAKER) 97 mg/dL 70-105 (test ovxh=830) CALCIUM (BEAKER) (test 7.9 mg/dL 8.4-10.2 lvku=390) EGFR (BEAKER) (test 89 mL/min/1.73 sq m ESTIMATED GFR IS NOT wfzz=4313) ACCURATE CREATININE CLEARANCE IN PREDICTING GLOMERULAR FILTRATION RATE. ESTIMATED GFR IS NOT APPLICABLE FOR DIALYSIS PATIENTS. TROPONIN [id number] 09:07:00 Test Item Value Reference Range Comments TROPONIN I (BEAKER) (test kxyk=162) 0.06 ng/mL 0.00-0.03 Troponin I (TnI) levels must be interpreted in the context of the presenting symptoms and the clinical findings. Elevated TnI levels indicate myocardial damage, but are not specific for ischemic heart disease. Elevated TnI levels are seen in patients with other cardiac conditions (including myocarditis and congestive heart failure), and slight TnI elevations occur in patients with other conditions, including sepsis, renal failure, acidosis, acute neurological disease, and persistent tachyarrhythmia.TROPONIN [id number] 06:51:00 Test Item Value Reference Range Comments TROPONIN I (BEAKER) (test zpxs=078) 0.05 ng/mL 0.00-0.03 Troponin I (TnI) levels must be interpreted in the context of the presenting symptoms and the clinical findings. Elevated TnI levels indicate myocardial damage, but are not specific for ischemic heart disease. Elevated TnI levels are seen in patients with other cardiac conditions (including myocarditis and congestive heart failure), and slight TnI elevations occur in patients with other conditions, including sepsis, renal failure, acidosis, acute neurological disease, and persistent tachyarrhythmia.BASIC METABOLIC [id number] 06:51:00 Test Item Value Reference Range Comments SODIUM (BEAKER) (test 139 meq/L 136-145 oaec=522) POTASSIUM (BEAKER) (test 3.0 meq/L 3.5-5.1 erpt=737) CHLORIDE (BEAKER) (test 102 meq/L 98-107 tmab=672) CO2 (BEAKER) (test 29 meq/L 22-29 vmps=661) BLOOD UREA NITROGEN 6 mg/dL 7-21 (BEAKER) (test rxcb=933) CREATININE (BEAKER) (test 0.71 mg/dL 0.57-1.25 brxc=454) GLUCOSE RANDOM (BEAKER) 118 mg/dL 70-105 (test ezgi=965) CALCIUM (BEAKER) (test 7.8 mg/dL 8.4-10.2 ccdf=961) EGFR (BEAKER) (test 84 mL/min/1.73 sq m ESTIMATED GFR IS NOT skoz=0483) ACCURATE CREATININE CLEARANCE IN PREDICTING GLOMERULAR FILTRATION RATE. ESTIMATED GFR IS NOT APPLICABLE FOR DIALYSIS PATIENTS. [id number] 06:44:00 Test Item Value Reference Range Comments MAGNESIUM (BEAKER) (test bhha=681) 1.8 mg/dL 1.6-2.6 PT/[id number] 04:26:00 Test Item Value Reference Range Comments PROTIME (BEAKER) (test lite=870) 14.9 seconds 11.9-14.2 INR (BEAKER) (test anow=669) 1.2 <=5.9 PARTIAL THROMBOPLASTIN TIME (BEAKER) (test 90.9 seconds 22.5-36.0 kzue=184) Effective 12/31/2018: PT Reference Range ChangeNew: 11.9-14.2 Previous: 11.7- 14.7RECOMMENDED COUMADIN/WARFARIN INR THERAPY RANGESSTANDARD DOSE: 2.0-3.0 Includes: PROPHYLAXIS for venous thrombosis, systemic embolization; TREATMENT for venous thrombosis and/or pulmonary embolus.HIGH RISK: Target INR is2.5-3.5 for patients wiht mechanical heart valves.Per heparin sliding scalePer heparin sliding scaleHEMOGLOBIN AND [id number] 04:15:00 Test Item Value Reference Range Comments HEMOGLOBIN (BEAKER) (test ymjn=293) 9.5 GM/DL 11.2-15.7 HEMATOCRIT (BEAKER) (test uoxs=292) 30.2 % 34.1-44.9 TROPONIN [id number] 22:28:00 Test Item Value Reference Range Comments TROPONIN I (BEAKER) (test tvum=872) 0.07 ng/mL 0.00-0.03 Troponin I (TnI) levels must be interpreted in the context of the presenting symptoms and the clinical findings. Elevated TnI levels indicate myocardial damage, but are not specific for ischemic heart disease. Elevated TnI levels are seen in patients with other cardiac conditions (including myocarditis and congestive heart failure), and slight TnI elevations occur in patients with other conditions, including sepsis, renal failure, acidosis, acute neurological disease, and persistent tachyarrhythmia.PT/[id number] 22:15:00 Test Item Value Reference Range Comments PROTIME (BEAKER) (test utth=847) 15.0 seconds 11.9-14.2 INR (BEAKER) (test bmnr=876) 1.2 <=5.9 PARTIAL THROMBOPLASTIN TIME (BEAKER) (test 38.3 seconds 22.5-36.0 cjci=134) Effective 12/31/2018: PT Reference Range ChangeNew: 11.9-14.2 Previous: 11.7- 14.7RECOMMENDED COUMADIN/WARFARIN INR THERAPY RANGESSTANDARD DOSE: 2.0-3.0 Includes: PROPHYLAXIS for venous thrombosis, systemic embolization; TREATMENT for venous thrombosis and/or pulmonary embolus.HIGH RISK: Target INR is2.5-3.5 for patients wiht mechanical heart valves.Per heparin sliding scalePer heparin sliding scaleRAD, ABDOMEN/KUB, 1 VIEW [id number] 18:44:00Reason for exam:-> vomitingFINAL REPORT Abdomen dated January 10, 2019 Comment: Abdomen was examined in the supine frontal position. Air is seen in the small and large bowel without dilatation to suggest mechanical obstruction or ileus. No mass, pathological calcification, or free air is present. Bilateral hip replacements are seen. Impression: No mechanical obstruction or ileus. Signed: Savannah Blanco MDReport Verified Date/Time: 01/10/2019 18:44:41 Reading Location: [address] Body Reading Room [id number] 14:44:00 Test Item Value Reference Range Comments MAGNESIUM (BEAKER) (test uvan=620) 1.6 mg/dL 1.6-2.6 BASIC METABOLIC [id number] 14:44:00 Test Item Value Reference Range Comments SODIUM (BEAKER) (test 140 meq/L 136-145 faoj=483) POTASSIUM (BEAKER) (test 2.9 meq/L 3.5-5.1 iyqu=036) CHLORIDE (BEAKER) (test 105 meq/L 98-107 buyo=214) CO2 (BEAKER) (test 28 meq/L 22-29 vtfe=912) BLOOD UREA NITROGEN 7 mg/dL 7-21 (BEAKER) (test eune=082) CREATININE (BEAKER) (test 0.69 mg/dL 0.57-1.25 dxjs=848) GLUCOSE RANDOM (BEAKER) 84 mg/dL 70-105 (test pojn=679) CALCIUM (BEAKER) (test 8.0 mg/dL 8.4-10.2 kdcp=349) EGFR (BEAKER) (test 87 mL/min/1.73 sq m ESTIMATED GFR IS NOT rxfy=6311) ACCURATE CREATININE CLEARANCE IN PREDICTING GLOMERULAR FILTRATION RATE. ESTIMATED GFR IS NOT APPLICABLE FOR DIALYSIS PATIENTS. TROPONIN [id number] 14:44:00 Test Item Value Reference Range Comments TROPONIN I (BEAKER) (test egbs=298) 0.08 ng/mL 0.00-0.03 Troponin I (TnI) levels must be interpreted in the context of the presenting symptoms and the clinical findings. Elevated TnI levels indicate myocardial damage, but are not specific for ischemic heart disease. Elevated TnI levels are seen in patients with other cardiac conditions (including myocarditis and congestive heart failure), and slight TnI elevations occur in patients with other conditions, including sepsis, renal failure, acidosis, acute neurological disease, and persistent tachyarrhythmia.CBC W/PLT COUNT & AUTO [id number] 14:34:00 Test Item Value Reference Range Comments WHITE BLOOD CELL COUNT (BEAKER) (test wtcu=282) 6.6 K/ L 3.5-10.5 RED BLOOD CELL COUNT (BEAKER) (test drcu=668) 3.38 M/ L 3.93-5.22 HEMOGLOBIN (BEAKER) (test larv=898) 9.4 GM/DL 11.2-15.7 HEMATOCRIT (BEAKER) (test tptm=707) 30.2 % 34.1-44.9 MEAN CORPUSCULAR VOLUME (BEAKER) (test zlif=761) 89.3 fL 79.4-94.8 MEAN CORPUSCULAR HEMOGLOBIN (BEAKER) (test 27.8 pg 25.6-32.2 jqps=051) MEAN CORPUSCULAR HEMOGLOBIN CONC (BEAKER) (test 31.1 GM/DL 32.2-35.5 atav=734) RED CELL DISTRIBUTION WIDTH (BEAKER) (test 15.0 % 11.7-14.4 jtih=441) PLATELET COUNT (BEAKER) (test hwqh=181) 288 K/CU MM 150-450 MEAN PLATELET VOLUME (BEAKER) (test pcwg=427) 10.5 fL 9.4-12.3 NUCLEATED RED BLOOD CELLS (BEAKER) (test 0 /100 WBC 0-0 nasm=550) NEUTROPHILS RELATIVE PERCENT (BEAKER) (test 68 % jhbt=678) LYMPHOCYTES RELATIVE PERCENT (BEAKER) (test 24 % fkwg=852) MONOCYTES RELATIVE PERCENT (BEAKER) (test 5 % dcpo=964) EOSINOPHILS RELATIVE PERCENT (BEAKER) (test 0 % ugoj=369) BASOPHILS RELATIVE PERCENT (BEAKER) (test 0 % zohe=904) NEUTROPHILS ABSOLUTE COUNT (BEAKER) (test 4.42 K/ L 1.56-6.13 kxzm=437) LYMPHOCYTES ABSOLUTE COUNT (BEAKER) (test 1.59 K/ L 1.18-3.74 jkwx=520) MONOCYTES ABSOLUTE COUNT (BEAKER) (test 0.35 K/ L 0.24-0.36 msov=539) EOSINOPHILS ABSOLUTE COUNT (BEAKER) (test 0.00 K/ L 0.04-0.36 ogij=335) BASOPHILS ABSOLUTE COUNT (BEAKER) (test 0.02 K/ L 0.01-0.08 dzvt=154) IMMATURE GRANULOCYTES-RELATIVE PERCENT (BEAKER) 3 % 0-1 (test qupt=5691) [id number] 13:25:00 Test Item Value Reference Range Comments AMYLASE (BEAKER) (test lwgv=684) 29 U/L 25-125 [id number] 13:25:00 Test Item Value Reference Range Comments LIPASE (BEAKER) (test zpyw=327) 16 U/L 8-78 [id number] 13:24:00 Test Item Value Reference Range Comments PARTIAL THROMBOPLASTIN TIME (BEAKER) (test 41.1 seconds 22.5-36.0 moyp=275) 6 hours after starting heparin infusion and as indicated per sliding scaleHEMOGLOBIN AND [id number] 13:10:00 Test Item Value Reference Range Comments HEMOGLOBIN (BEAKER) (test mjfb=946) 9.3 GM/DL 11.2-15.7 HEMATOCRIT (BEAKER) (test wklf=945) 30.0 % 34.1-44.9 U/S, ABDOMINAL, [id number] 12:16:00Abdomen limited area? Add comment if clarification is needed.->Right upper quadrantReason for exam:->abdomen painShould this be performed at the bedside?->YesFINAL REPORT Limited Abdominal ultrasound. Clinical history: abdomen [...] the patient's pain identified. Signed: Daniel Lopez MDReport Verified Date/Time: 01/10/2019 12:16:23 Reading Location: [address] Consult Reading Room PT/[id number] 20:52:00 Test Item Value Reference Range Comments PROTIME (BEAKER) (test ydsu=902) 18.3 seconds 11.9-14.2 INR (BEAKER) (test zsdp=994) 1.6 <=5.9 PARTIAL THROMBOPLASTIN TIME (BEAKER) (test 56.3 seconds 22.5-36.0 aizu=344) Effective 12/31/2018: PT Reference Range ChangeNew: 11.9-14.2 Previous: 11.7- 14.7RECOMMENDED COUMADIN/WARFARIN INR THERAPY RANGESSTANDARD DOSE: 2.0-3.0 Includes: PROPHYLAXIS for venous thrombosis, systemic embolization; TREATMENT for venous thrombosis and/or pulmonary embolus.HIGH RISK: Target INR is2.5-3.5 for patients wiht mechanical heart valves.HEMOGLOBIN AND [id number] 16 :23:00 Test Item Value Reference Range Comments HEMOGLOBIN (BEAKER) (test wyra=882) 9.4 GM/DL 11.2-15.7 HEMATOCRIT (BEAKER) (test zlby=623) 29.9 % 34.1-44.9 [id number] 07:42:00 Test Item Value Reference Range Comments PROTIME (BEAKER) (test iznq=416) 19.1 seconds 11.9-14.2 INR (BEAKER) (test zjme=273) 1.7 <=5.9 PARTIAL THROMBOPLASTIN TIME (BEAKER) (test 111.0 seconds 22.5-36.0 qzvk=503) Effective 12/31/2018: PT Reference Range ChangeNew: 11.9-14.2 Previous: 11.7- 14.7RECOMMENDED COUMADIN/WARFARIN INR THERAPY RANGESSTANDARD DOSE: 2.0-3.0 Includes: PROPHYLAXIS for venous thrombosis, systemic embolization; TREATMENT for venous thrombosis and/or pulmonary embolus.HIGH RISK: Target INR is2.5-3.5 for patients wiht mechanical heart valves.[id number] 03:41:00 Test Item Value Reference Range Comments MAGNESIUM (BEAKER) (test agaf=787) 1.7 mg/dL 1.6-2.6 BASIC METABOLIC [id number] 03:41:00 Test Item Value Reference Range Comments SODIUM (BEAKER) (test 140 meq/L 136-145 gvga=136) POTASSIUM (BEAKER) (test 4.2 meq/L 3.5-5.1 qmca=315) CHLORIDE (BEAKER) (test 106 meq/L 98-107 fofa=153) CO2 (BEAKER) (test 29 meq/L 22-29 qugd=434) BLOOD UREA NITROGEN 7 mg/dL 7-21 (BEAKER) (test iyne=141) CREATININE (BEAKER) (test 0.68 mg/dL 0.57-1.25 gyzh=412) GLUCOSE RANDOM (BEAKER) 114 mg/dL 70-105 (test pome=639) CALCIUM (BEAKER) (test 7.9 mg/dL 8.4-10.2 jiyb=673) EGFR (BEAKER) (test 89 mL/min/1.73 sq m ESTIMATED GFR IS NOT pyve=3756) ACCURATE CREATININE CLEARANCE IN PREDICTING GLOMERULAR FILTRATION RATE. ESTIMATED GFR IS NOT APPLICABLE FOR DIALYSIS PATIENTS. PROTHROMBIN [id number] 03:35:00 Test Item Value Reference Range Comments PROTIME (BEAKER) (test qcnz=086) 19.6 seconds 11.9-14.2 INR (BEAKER) (test tvlq=446) 1.8 <=5.9 Effective 12/31/2018: PT Reference Range ChangeNew: 11.9-14.2 Previous: 11.7- 14.7RECOMMENDED COUMADIN/WARFARIN INR THERAPY RANGESSTANDARD DOSE: 2.0-3.0 Includes: PROPHYLAXIS for venous thrombosis, systemic embolization; TREATMENT for venous thrombosis and/or pulmonary embolus.HIGH RISK: Target INR is2.5-3.5 for patients wiht mechanical heart valves.HEMOGLOBIN AND [id number] 03 :21:00 Test Item Value Reference Range Comments HEMOGLOBIN (BEAKER) (test xndh=819) 8.8 GM/DL 11.2-15.7 HEMATOCRIT (BEAKER) (test yuhj=398) 27.9 % 34.1-44.9 PT/[id number] 23:57:00 Test Item Value Reference Range Comments PROTIME (BEAKER) (test wltf=162) 19.1 seconds 11.9-14.2 INR (BEAKER) (test pgyd=748) 1.7 <=5.9 PARTIAL THROMBOPLASTIN TIME (BEAKER) (test 84.3 seconds 22.5-36.0 bijt=628) Effective 12/31/2018: PT Reference Range ChangeNew: 11.9-14.2 Previous: 11.7- 14.7RECOMMENDED COUMADIN/WARFARIN INR THERAPY RANGESSTANDARD DOSE: 2.0-3.0 Includes: PROPHYLAXIS for venous thrombosis, systemic embolization; TREATMENT for venous thrombosis and/or pulmonary embolus.HIGH RISK: Target INR is2.5-3.5 for patients wiht mechanical heart valves.PT/[id number] 22:20:00 Test Item Value Reference Range Comments PROTIME (BEAKER) (test jrks=476) 19.3 seconds 11.9-14.2 INR (BEAKER) (test bncv=508) 1.7 <=5.9 PARTIAL THROMBOPLASTIN TIME (BEAKER) (test 111.7 seconds 22.5-36.0 wtir=601) Effective 12/31/2018: PT Reference Range ChangeNew: 11.9-14.2 Previous: 11.7- 14.7RECOMMENDED COUMADIN/WARFARIN INR THERAPY RANGESSTANDARD DOSE: 2.0-3.0 Includes: PROPHYLAXIS for venous thrombosis, systemic embolization; TREATMENT for venous thrombosis and/or pulmonary embolus.HIGH RISK: Target INR is2.5-3.5 for patients wiht mechanical heart valves.Patient is on agartrobanPatient is on agartrobanHEMOGLOBIN AND [id number] 22:08:00 Test Item Value Reference Range Comments HEMOGLOBIN (BEAKER) (test rspt=855) 9.6 GM/DL 11.2-15.7 HEMATOCRIT (BEAKER) (test vucp=959) 30.5 % 34.1-44.9 HEMOGLOBIN AND [id number] 16:25:00 Test Item Value Reference Range Comments HEMOGLOBIN (BEAKER) (test dmlt=903) 8.7 GM/DL 11.2-15.7 HEMATOCRIT (BEAKER) (test udya=916) 27.5 % 34.1-44.9 CBC (HEMOGRAM ONLY)2019-01-08 16:25:00 Test Item Value Reference Range Comments WHITE BLOOD CELL COUNT (BEAKER) (test xiah=729) 5.7 K/ L 3.5-10.5 RED BLOOD CELL COUNT (BEAKER) (test prpi=690) 3.13 M/ L 3.93-5.22 HEMOGLOBIN (BEAKER) (test uegn=944) 8.7 GM/DL 11.2-15.7 HEMATOCRIT (BEAKER) (test jjlg=988) 27.5 % 34.1-44.9 MEAN CORPUSCULAR VOLUME (BEAKER) (test jjjw=896) 87.9 fL 79.4-94.8 MEAN CORPUSCULAR HEMOGLOBIN (BEAKER) (test 27.8 pg 25.6-32.2 eetd=218) MEAN CORPUSCULAR HEMOGLOBIN CONC (BEAKER) (test 31.6 GM/DL 32.2-35.5 dcaz=820) RED CELL DISTRIBUTION WIDTH (BEAKER) (test 15.6 % 11.7-14.4 wxiw=899) PLATELET COUNT (BEAKER) (test nkqq=912) 226 K/CU MM 150-450 MEAN PLATELET VOLUME (BEAKER) (test ofhu=679) 10.8 fL 9.4-12.3 NUCLEATED RED BLOOD CELLS (BEAKER) (test 0 /100 WBC 0-0 ozqr=544) [id number] 15:07:00 Test Item Value Reference Range Comments PARTIAL THROMBOPLASTIN TIME (BEAKER) (test 59.8 seconds 22.5-36.0 xxri=548) PROTHROMBIN TIME/[id number] 14:32:00 Test Item Value Reference Range Comments PROTIME (BEAKER) (test ojob=523) 19.7 seconds 11.9-14.2 INR (BEAKER) (test ebhz=268) 1.8 <=5.9 Effective 12/31/2018: PT Reference Range ChangeNew: 11.9-14.2 Previous: 11.7- 14.7RECOMMENDED COUMADIN/WARFARIN INR THERAPY RANGESSTANDARD DOSE: 2.0-3.0 Includes: PROPHYLAXIS for venous thrombosis, systemic embolization; TREATMENT for venous thrombosis and/or pulmonary embolus.HIGH RISK: Target INR is2.5-3.5 for patients wiht mechanical heart valves.B-TYPE NATRIURETIC FACTOR (BNP)2019-01 12:44:00 Test Item Value Reference Range Comments B-TYPE NATRIURETIC PEPTIDE (BEAKER) (test 526 pg/mL 0-100 cank=438) [id number] 12:34:00 Test Item Value Reference Range Comments POTASSIUM (BEAKER) (test ffrr=750) 3.9 meq/L 3.5-5.1 [id number] 12:34:00 Test Item Value Reference Range Comments MAGNESIUM (BEAKER) (test bmth=889) 2.0 mg/dL 1.6-2.6 [id number] 11:33:00 Test Item Value Reference Range Comments PROCALCITONIN (BEAKER) (test ittb=7504) 0.05 ng/mL <0.05 SEPSIS RISK (ng/mL)Low: 0.05-0.50Intermediate: 0.51-2.00High: & gt;=2.01LACTIC ACID, [id number] 10:31:00 Test Item Value Reference Range Comments LACTATE BLOOD VENOUS (2) (BEAKER) (test 0.7 mmol/L 0.5-2.2 glrc=8773) HEMOGLOBIN AND [id number] 10:10:00 Test Item Value Reference Range Comments HEMOGLOBIN (BEAKER) (test euoo=231) 8.3 GM/DL 11.2-15.7 HEMATOCRIT (BEAKER) (test dwiq=075) 26.2 % 34.1-44.9 BASIC METABOLIC [id number] 08:27:00 Test Item Value Reference Range Comments SODIUM (BEAKER) (test 139 meq/L 136-145 jppo=810) POTASSIUM (BEAKER) (test 3.2 meq/L 3.5-5.1 ykhv=161) CHLORIDE (BEAKER) (test 105 meq/L 98-107 lcdf=780) CO2 (BEAKER) (test 28 meq/L 22-29 wqml=847) BLOOD UREA NITROGEN 8 mg/dL 7-21 (BEAKER) (test dbfo=888) CREATININE (BEAKER) (test 0.72 mg/dL 0.57-1.25 djeg=077) GLUCOSE RANDOM (BEAKER) 91 mg/dL 70-105 (test hncq=664) CALCIUM (BEAKER) (test 7.6 mg/dL 8.4-10.2 xjky=673) EGFR (BEAKER) (test 83 mL/min/1.73 sq m ESTIMATED GFR IS NOT bhln=1572) ACCURATE CREATININE CLEARANCE IN PREDICTING GLOMERULAR FILTRATION RATE. ESTIMATED GFR IS NOT APPLICABLE FOR DIALYSIS PATIENTS. RAD, CHEST, 1 VIEW, NON [id number] 08:17:00Reason for exam:->pulmonary edemaShould this be performed at the bedside?->YesFINAL REPORT Follow up Chest radiograph Clinical History: Pulmonary edemaComparison : January 07, 2019Views: One AP lordotic Chest x-ray:The cardiac and mediastinal silhouettes are unchanged. There [...] edema. Chronic interstitial disease cannot be excluded Impression:Decreased pulmonary vascular congestion and improved inspiratory effort. Signed: Inder Wilksort Verified Date/Time: 2018 08:17:31 Reading Location: [facility] Radiology Reading Room [id number] -[id number] 08:12:00 Test Item Value Reference Range Comments MAGNESIUM (BEAKER) (test stbx=496) 2.0 mg/dL 1.6-2.6 [id number] 07:14:00 Test Item Value Reference Range Comments FERRITIN (BEAKER) (test brbe=028) 346 ng/mL 5-275 IRON, TIBC, % SAT. (WITHOUT FERRITIN)2019-01-08 06:51:00 Test Item Value Reference Range Comments IRON (BEAKER) (test pdcv=135) 27.0 ug/dL 40.0-160.0 TOTAL IRON BINDING CAPACITY (BEAKER) (test 196 ug/dL 250-450 edls=821) IRON % SATURATION (2) (BEAKER) (test yqpp=1117) 14 % 20-55 HEMOGLOBIN AND [id number] 06:25:00 Test Item Value Reference Range Comments HEMOGLOBIN (BEAKER) (test anik=674) 7.8 GM/DL 11.2-15.7 HEMATOCRIT (BEAKER) (test xmfw=358) 24.4 % 34.1-44.9 THROMBOELASTOGRAPH (TEG)2019-01-08 01:42:00 Test Item Value Reference Range Comments TEG ACTIVATED CLOTTING TIME (BEAKER) (test 8.4 minutes 4.0-7.0 duhh=2240) TEG FIBRINOGEN ACTIVITY (BEAKER) (test 71.7 degrees 61.0-73.0 qynw=3274) TEG PLT. AGGREGATION (BEAKER) (test kqzf=2848) 68.2 MM 55.0-65.0 TEG FIBRINOLYSIS (BEAKER) (test bibi=3523) 0.0 % 0.0-5.0 TGH ACTIVATED CLOTTING TIME (BEAKER) (test 8.9 minutes 4.0-7.0 ftdy=1427) TGH FIBRINOGEN ACTIVITY (BEAKER) (test 70.1 degrees 61.0-73.0 elkj=9397) TGH PLT. AGGREGATION (BEAKER) (test lsgs=6907) 65.3 MM 55.0-65.0 TGH FIBRINOLYSIS (BEAKER) (test zkix=3884) 0.0 % 0.0-5.0 RAD, CHEST, 1 VIEW, NON [id number] 23:31:00Reason for exam:-> DyspneaShould this be performed at the bedside?->YesFINAL REPORT Chest one view. Clinical history: Dyspnea Comparison: None. Technique: A single frontal view of the chest was obtained. Findings/Impression :The patient is status post median sternotomy. There are cardiac valve prostheses.The cardiac silhouette is mildly enlarged. There is pulmonary interstitial edema. There is a trace right pleural effusion. There is no pneumothorax. The bony thorax is demineralized. There are degenerative changes of the right shoulder. Signed: Travis Aguila MDReport Verified Date/Time : 01/07/2019 23:31:03 Reading Location: [address] Reading Room COMPREHENSIVE METABOLIC [id number] 22:56:00 Test Item Value Reference Range Comments TOTAL PROTEIN (BEAKER) 5.8 gm/dL 6.0-8.3 (test hbrx=217) ALBUMIN (BEAKER) (test 3.0 g/dL 3.5-5.0 rdnp=0741) ALKALINE PHOSPHATASE 56 U/L 40-150 (BEAKER) (test ixxp=377) BILIRUBIN TOTAL (BEAKER) 0.7 mg/dL 0.2-1.2 (test vyda=859) SODIUM (BEAKER) (test 139 meq/L 136-145 smjs=226) POTASSIUM (BEAKER) (test 3.4 meq/L 3.5-5.1 llww=226) CHLORIDE (BEAKER) (test 109 meq/L 98-107 wkmc=584) CO2 (BEAKER) (test 23 meq/L 22-29 tlwj=636) BLOOD UREA NITROGEN 9 mg/dL 7-21 (BEAKER) (test npcq=739) CREATININE (BEAKER) (test 0.75 mg/dL 0.57-1.25 gfju=096) GLUCOSE RANDOM (BEAKER) 102 mg/dL 70-105 (test ucqs=739) CALCIUM (BEAKER) (test 7.1 mg/dL 8.4-10.2 nfgr=998) AST (SGOT) (BEAKER) (test 25 U/L 5-34 itpq=072) ALT (SGPT) (BEAKER) (test 11 U/L 6-55 alin=489) EGFR (BEAKER) (test 79 mL/min/1.73 sq m ESTIMATED GFR IS NOT meoo=3839) ACCURATE CREATININE CLEARANCE IN PREDICTING GLOMERULAR FILTRATION RATE. ESTIMATED GFR IS NOT APPLICABLE FOR DIALYSIS PATIENTS. [id number] 22:51:00 Test Item Value Reference Range Comments MAGNESIUM (BEAKER) (test bbqn=940) 1.3 mg/dL 1.6-2.6 [id number] 22:45:00 Test Item Value Reference Range Comments FIBRINOGEN LEVEL (BEAKER) (test fiho=451) 509 mg/dl 225-434 PROTHROMBIN TIME/[id number] 22:09:00 Test Item Value Reference Range Comments PROTIME (BEAKER) (test bqwr=232) 20.5 seconds 11.9-14.2 INR (BEAKER) (test xkrf=027) 1.9 <=5.9 Effective 12/31/2018: PT Reference Range ChangeNew: 11.9-14.2 Previous: 11.7- 14.7RECOMMENDED COUMADIN/WARFARIN INR THERAPY RANGESSTANDARD DOSE: 2.0-3.0 Includes: PROPHYLAXIS for venous thrombosis, systemic embolization; TREATMENT for venous thrombosis and/or pulmonary embolus.HIGH RISK: Target INR is2.5-3.5 for patients wiht mechanical heart valves.CBC W/PLT COUNT & AUTO [id number] 22:05:00 Test Item Value Reference Range Comments WHITE BLOOD CELL COUNT (BEAKER) (test flxj=138) 4.2 K/ L 3.5-10.5 RED BLOOD CELL COUNT (BEAKER) (test ycjv=368) 2.41 M/ L 3.93-5.22 HEMOGLOBIN (BEAKER) (test jtwt=380) 6.7 GM/DL 11.2-15.7 HEMATOCRIT (BEAKER) (test phct=618) 21.4 % 34.1-44.9 MEAN CORPUSCULAR VOLUME (BEAKER) (test whdz=744) 88.8 fL 79.4-94.8 MEAN CORPUSCULAR HEMOGLOBIN (BEAKER) (test 27.8 pg 25.6-32.2 emqb=383) MEAN CORPUSCULAR HEMOGLOBIN CONC (BEAKER) (test 31.3 GM/DL 32.2-35.5 lpuk=329) RED CELL DISTRIBUTION WIDTH (BEAKER) (test 14.2 % 11.7-14.4 nslu=368) PLATELET COUNT (BEAKER) (test grhx=244) 208 K/CU MM 150-450 MEAN PLATELET VOLUME (BEAKER) (test inhl=233) 10.2 fL 9.4-12.3 NUCLEATED RED BLOOD CELLS (BEAKER) (test 0 /100 WBC 0-0 spkh=556) NEUTROPHILS RELATIVE PERCENT (BEAKER) (test 73 % aewl=400) LYMPHOCYTES RELATIVE PERCENT (BEAKER) (test 19 % oopr=474) MONOCYTES RELATIVE PERCENT (BEAKER) (test 8 % xxjc=325) EOSINOPHILS RELATIVE PERCENT (BEAKER) (test 0 % yvxi=216) BASOPHILS RELATIVE PERCENT (BEAKER) (test 0 % foni=492) NEUTROPHILS ABSOLUTE COUNT (BEAKER) (test 3.08 K/ L 1.56-6.13 cifs=409) LYMPHOCYTES ABSOLUTE COUNT (BEAKER) (test 0.79 K/ L 1.18-3.74 cpei=013) MONOCYTES ABSOLUTE COUNT (BEAKER) (test 0.32 K/ L 0.24-0.36 gxhq=856) EOSINOPHILS ABSOLUTE COUNT (BEAKER) (test 0.00 K/ L 0.04-0.36 rmze=122) BASOPHILS ABSOLUTE COUNT (BEAKER) (test 0.00 K/ L 0.01-0.08 yarx=538) IMMATURE GRANULOCYTES-RELATIVE PERCENT (BEAKER) 1 % 0-1 (test qchc=1125)
[2019-03-28] MEDS ORDERED: ONDANSETRON 4 MG (ODT) TAB ONE (17:51)
[2019-03-28] MEDS ORDERED: FENTANYL CITR 100 MCG/2 ML ONE (17:51)
--- NOTE | 2019-03-28 18:32 | ER ---
Nurse's Notes [facility] Name: Kim Aldana Age: 58 yrs Sex: Female : 1960 Arrival Date: 03/28/2019 Time: 17:01 Bed 6 Private MD: Kayce Cheek H Diagnosis: Pain in left knee;Contusion of left knee Presentation: 03/28 17:11 Presenting complaint: Patient states: Fell apprx 3 days ago, c/o pain and swelling to L ph knee and pain in L rib area. Transition of care: patient was not received from another setting of care. Onset of symptoms was March 28, 2019. Risk Assessment: Do you want to hurt yourself or someone else? Patient reports no desire to harm self or others. Initial Sepsis Screen: Does the patient meet any 2 criteria? No. Patient's initial sepsis screen is negative. Does the patient have a suspected source of infection? No. Patient's initial sepsis screen is negative. Care prior to arrival: None. 17:11 Method Of Arrival: Wheelchair ph 17:11 Acuity: CABRERA 4 ph Historical: - Allergies: 17:15 Aspirin; ph 17:15 Compazine; ph 17:15 Morphine; ph 17:15 PENICILLINS; ph 17:15 Phenergan; ph 17:15 Demerol; ph 17:15 Dilaudid; ph 17:15 Methadone; ph 17:15 Neurontin; ph 17:15 plastic tape; ph 17:15 Vicodin; ph - PMHx: 17:15 arterial insuficiency; Back pain; cerebritis; chest pain; Chronic pain; dejenteritive ph joint disease; Dyspepsia; esophageal reflux; fatigue; hypersomnia; lumbar radiculitis; Lupus; menopause; osteomyelitis; Panic Attacks; pulmonary edema; Seizures; Tachycardia; TIA; venous insufficiency; - PSHx: 17:15 Appendectomy; lens implants; left hip replacement; right knee replacement; colon ph removed; right hip replacement; left foot; heart valve replacement; - Immunization history:: Adult Immunizations up to date. - Social history:: Smoking status: unknown. - Ebola Screening: : Patient negative for fever greater than or equal to 101.5 degrees Fahrenheit, and additional compatible Ebola Virus Disease symptoms No symptoms or risks identified at this time. Screenin:43 Abuse screen: Denies threats or abuse. Denies injuries from another. Nutritional rv screening: No deficits noted. Tuberculosis screening: No symptoms or risk factors identified. Fall Risk None identified. Assessment: 17:42 General: Appears in no apparent distress. uncomfortable, Behavior is calm, cooperative. rv Pain: Complains of pain in left knee. Neuro: Level of Consciousness is awake, alert, obeys commands, Oriented to person, place, time, situation. Cardiovascular: Patient's skin is warm and dry. Respiratory: Airway is patent. GI: No signs and/or symptoms were reported involving the gastrointestinal system. : No signs and/or symptoms were reported regarding the genitourinary system. EENT: No signs and/or symptoms were reported regarding the EENT system. Derm: Skin is intact. Musculoskeletal: Bony deformity noted of right knee. Vital Signs: 17:15 BP 111 / 64; Pulse 93; Resp 18; Temp 97.9; Pulse Ox 97% on R/A; Weight 63.96 kg; Height ph 5 ft. 6 in. (167.64 cm); Pain 10/10; 18:57 BP 108 / 66; Pulse 91; Resp 16; Pulse Ox 98% on R/A; rv 17:15 Body Mass Index 22.76 (63.96 kg, 167.64 cm) ph ED Course: 17:01 Patient arrived in ED. es 17:01 Kayce Cheek DO is Private Physician. es 17:04 Al Wilkinson, MELQUIADES is Primary Nurse. bp 17:05 Brigido Huang NP is PHCP. pm1 17:05 Branden Espino MD is Attending Physician. pm1 17:12 Triage completed. ph 17:15 Arm band placed on Patient placed in an exam room, on a stretcher. ph 17:35 Knee Left 3 View XRAY In Process Unspecified. EDMS 17:43 Patient has correct armband on for positive identification. Bed in low position. Call rv light in reach. Side rails up X 1. Pulse ox on. NIBP on. 18:58 No provider procedures requiring assistance completed. Patient did not have IV access rv during this emergency room visit. 18:58 Knee immobilizer applied on left knee. rv Administered Medications: 17:55 Drug: Zofran 4 mg Route: PO; rv 18:57 Follow up: Response: No adverse reaction rv 18:00 Drug: fentaNYL (PF) 50 mcg Route: IM; Site: right deltoid; rv 18:05 Follow up: rass 0 rv 18:57 Follow up: Response: No adverse reaction; RASS: Alert and Calm (0) rv Intake: Outcome: 18:31 Discharge ordered by . pm1 18:58 Discharged to home via wheelchair, with crutches, with family. rv 18:58 Condition: good 18:58 Discharge instructions given to patient, Instructed on discharge instructions, follow up and referral plans. medication usage, crutch walking, Demonstrated understanding of instructions, follow-up care, crutch walking, Prescriptions given X 1. 18:59 Patient left the ED. rv Signatures: Dispatcher [employer] Grace Thompson Patricia, RN RN Brigido Ponce NP SESSIONS CLERK pm1 Al Wilkinson RN RN bp Adilson Martinez RN RN rv
--- NOTE | 2019-03-28 18:33 | EDPHYS ---
Physician Documentation [facility] Name: Kim Aldana Age: 58 yrs Sex: Female : 1960 Arrival Date: 03/28/2019 Time: 17:01 Bed 6 Private MD: Kayce Cheek H ED Physician Branden Espino HPI: 03/28 17:35 This 58 yrs old Female presents to ER via Wheelchair with complaints of Knee pm1 Injury. 17:35 The patient presents with pain, swelling. The complaints affect the left knee. Context: pm1 resulted from the patient falling. 17:35 Onset: The symptoms/episode began/occurred 2 day(s) ago. Modifying factors: The pm1 symptoms are alleviated by nothing. the symptoms are aggravated by movement, weight bearing, bending knee. Associated signs and symptoms: Pertinent positives: swelling, Pertinent negatives calf tenderness, fever, numbness, tingling. Treatment prior to arrival includes: no previous treatment. Severity of symptoms: in the emergency department the symptoms are actually worse. The patient has not experienced similar symptoms in the past. PCP ordered xray of knee. Has not gotten xray yet. Patient tripped and fell on her left knee and palm of right hand. Patient without pain to right hand. No head injury, headache, knee pain. Historical: - Allergies: 17:15 Aspirin; ph 17:15 Compazine; ph 17:15 Morphine; ph 17:15 PENICILLINS; ph 17:15 Phenergan; ph 17:15 Demerol; ph 17:15 Dilaudid; ph 17:15 Methadone; ph 17:15 Neurontin; ph 17:15 plastic tape; ph 17:15 Vicodin; ph - PMHx: 17:15 arterial insuficiency; Back pain; cerebritis; chest pain; Chronic pain; dejenteritive ph joint disease; Dyspepsia; esophageal reflux; fatigue; hypersomnia; lumbar radiculitis; Lupus; menopause; osteomyelitis; Panic Attacks; pulmonary edema; Seizures; Tachycardia; TIA; venous insufficiency; - PSHx: 17:15 Appendectomy; lens implants; left hip replacement; right knee replacement; colon ph removed; right hip replacement; left foot; heart valve replacement; - Immunization history:: Adult Immunizations up to date. - Social history:: Smoking status: unknown. - Ebola Screening: : Patient negative for fever greater than or equal to 101.5 degrees Fahrenheit, and additional compatible Ebola Virus Disease symptoms No symptoms or risks identified at this time. ROS: 18:00 Constitutional: Negative for fever, chills, and weight loss, Eyes: Negative for injury, pm1 pain, redness, and discharge, ENT: Negative for injury, pain, and discharge, Neck: Negative for injury, pain, and swelling, Cardiovascular: Negative for chest pain, palpitations, and edema, Respiratory: Negative for shortness of breath, cough, wheezing, and pleuritic chest pain, Abdomen/GI: Negative for abdominal pain, nausea, vomiting, diarrhea, and constipation, Back: Negative for injury and pain, : Negative for injury, bleeding, discharge, and swelling. 18:00 Skin: Negative for injury, rash, and discoloration. 18:00 Neuro: Negative for headache, weakness, numbness, tingling, and seizure. 18:00 MS/extremity: Positive for pain, swelling, of the right knee, Negative for decreased range of motion, deformity. Exam: 18:00 Constitutional: This is a well developed, well nourished patient who is awake, alert, pm1 and in no acute distress. Head/Face: Normocephalic, atraumatic. Eyes: Pupils equal round and reactive to light, extra-ocular motions intact. Lids and lashes normal. Conjunctiva and sclera are non-icteric and not injected. Cornea within normal limits. Periorbital areas with no swelling, redness, or edema. ENT: Nares patent. No nasal discharge, no septal abnormalities noted. Tympanic membranes are normal and external auditory canals are clear. Oropharynx with no redness, swelling, or masses, exudates, or evidence of obstruction, uvula midline. Mucous membranes moist. Neck: Trachea midline, no thyromegaly or masses palpated, and no cervical lymphadenopathy. Supple, full range of motion without nuchal rigidity, or vertebral point tenderness. No Meningismus. Chest/axilla: Normal chest wall appearance and motion. Nontender with no deformity. No lesions are appreciated. Cardiovascular: Regular rate and rhythm with a normal S1 and S2. No gallops, murmurs, or rubs. Normal PMI, no JVD. No pulse deficits. Respiratory: Lungs have equal breath sounds bilaterally, clear to auscultation and percussion. No rales, rhonchi or wheezes noted. No increased work of breathing, no retractions or nasal flaring. Abdomen/GI: Soft, non-tender, with normal bowel sounds. No distension or tympany. No guarding or rebound. No evidence of tenderness throughout. Back: No spinal tenderness. No costovertebral tenderness. Full range of motion. Skin: Warm, dry with normal turgor. Normal color with no rashes, no lesions, and no evidence of cellulitis. 18:00 Musculoskeletal/extremity: Extremities: grossly normal except: noted in the right knee: swelling, tenderness, There is no evidence of decreased ROM, deformity. Vital Signs: 17:15 BP 111 / 64; Pulse 93; Resp 18; Temp 97.9; Pulse Ox 97% on R/A; Weight 63.96 kg; Height ph 5 ft. 6 in. (167.64 cm); Pain 10/10; 18:57 BP 108 / 66; Pulse 91; Resp 16; Pulse Ox 98% on R/A; rv 17:15 Body Mass Index 22.76 (63.96 kg, 167.64 cm) ph MDM: 17:05 Patient medically screened. pm1 18:29 Data reviewed: vital signs. Data interpreted: Pulse oximetry: on room air is 97 %. pm1 Interpretation: normal. Counseling: I had a detailed discussion with the patient and/or guardian regarding: the historical points, exam findings, and any diagnostic results supporting the discharge/admit diagnosis, radiology results, the need for outpatient follow up, a orthopedic surgeon, to return to the emergency department if symptoms worsen or persist or if there are any questions or concerns that arise at home. 03/28 17:09 Order name: Knee Left 3 View XRAY; Complete Time: 18:50 pm1 03/28 18:29 Order name: Knee Immobilizer; Complete Time: 18:57 pm1 03/28 18:29 Order name: Crutches; Complete Time: 18:57 pm1 Administered Medications: 17:55 Drug: Zofran 4 mg Route: PO; rv 18:57 Follow up: Response: No adverse reaction rv 18:00 Drug: fentaNYL (PF) 50 mcg Route: IM; Site: right deltoid; rv 18:05 Follow up: rass 0 rv 18:57 Follow up: Response: No adverse reaction; RASS: Alert and Calm (0) rv Disposition: 03/28/19 18:31 Discharged to Home. Impression: Pain in left knee, Contusion of left knee. - Condition is Stable. - Discharge Instructions: Crutch Use, Knee Immobilizer, RICE for Routine Care of Injuries, Knee Pain. - Prescriptions for Tramadol 50 mg Oral Tablet - take 1 tablet by ORAL route every 8 hours As needed as needed; 20 tablet. - Medication Reconciliation Form, Thank You Letter, Antibiotic Education, Prescription Opioid Use form. - Follow up: Emergency Department; When: As needed; Reason: Worsening of condition. Follow up: Private Physician; When: 2 - 3 days; Reason: Recheck today's complaints, Continuance of care, Re-evaluation by your physician. - Problem is new. - Symptoms have improved. Signatures: Dispatcher [employer] EDGricel Mercado RN RN Brigido Ponce, LAI RADIOLOGY TRANSPORTER pm1 Adilson Martinez RN RN rv Corrections: (The following items were deleted from the chart) 18:59 18:31 03/28/2019 18:31 Discharged to Home. Impression: Pain in left knee; Contusion of rv left knee. Condition is Stable. Forms are Medication Reconciliation Form, Thank You Letter, Antibiotic Education, Prescription Opioid Use. Follow up: Emergency Department; When: As needed; Reason: Worsening of condition. Follow up: Private Physician; When: 2 - 3 days; Reason: Recheck today's complaints, Continuance of care, Re-evaluation by your physician. Problem is new. Symptoms have improved. pm1
--- NOTE | 2019-03-28 18:39 | RAD REPORT ---
EXAM DESCRIPTION: RAD - Knee Left 3 View - 03/28/2019 5:37 pm CLINICAL HISTORY: Recurring falls, left knee pain COMPARISON: Left knee March 27 FINDINGS: Left knee remains without identifiable acute fracture. Bone infarction or less likely ench ondroma changes are present in the distal femur and proximal tibia. Significant degenerative changes involve the femoral condyles.Acute bony injury is not confirmed. Patient continues to show moderately large joint effusion. No foreign body in the soft tissues. No soft tissue abnormality. IMPRESSION: No new finding from prior day imaging. Clinical concerns for internal derangement or occult bony injury could be further assessed with MR im aging.
[2019-03-28 20:37] VITALS: TEMP 97.9
[2019-03-28 20:39] VITALS: BP 108/66; O2SAT 98
== END 2019-03-28 18:59 | disposition home or self-care (01) ==
LOC: ER 16:58
DX: S80.02XA Contusion of left knee, initial encounter (principal); W01.0XXA Fall on same level from slipping, tripping and stumbling without subsequent striking against object, initial encounter; Y93.9 Activity, unspecified; Y92.9 Unspecified place or not applicable; Z88.0 Allergy status to penicillin; Z88.5 Allergy status to narcotic agent; Z88.6 Allergy status to analgesic agent; Z88.8 Allergy status to other drugs, medicaments and biological substances; Z91.048 Other nonmedicinal substance allergy status; Z95.2 Presence of prosthetic heart valve; Z96.643 Presence of artificial hip joint, bilateral; Z96.651 Presence of right artificial knee joint
CPT/HCPCS: 73562; 96372; 99284; J3010

== ENCOUNTER 2019-06-19 16:11 | Emergency (ER) | payer OTHER ==
--- OUTSIDE RECORDS SUMMARY | 2019-06-19 16:14 | XMS REPORT ---
:1960 [facility] Address [address] [place] [address] [address] [place] [address] Care Team Providers Name Role Phone MELANIE ANTHONY Unavailable Unavailable Problems This patient has no known problems. Allergies, Adverse Reactions, Alerts This patient has no known allergies or adverse reactions. Medications This patient has no known medications. Results Test Description Test Time Test Comments Text Results Atomic Results Result Comments PROTHROMBIN TIME/INR 2019-01-17 06:03:00 Test Item Value Reference Range Comments PROTIME (BEAKER) (test tdpe=138) 14.0 seconds 11.9-14.2 INR (BEAKER) (test qopu=629) 1.1 <=5.9 Effective 12/31/2018: PT Reference Range ChangeNew: 11.9-14.2 Previous: 11.7- 14.7RECOMMENDED COUMADIN/WARFARIN INR THERAPY RANGESSTANDARD DOSE: 2.0-3.0 Includes: PROPHYLAXIS for venous thrombosis, systemic embolization; TREATMENT for venous thrombosis and/or pulmonary embolus.HIGH RISK: Target INR is2.5-3.5 for patients wiht mechanical heart valves.While on warfarin.PROTHROMBIN TIME/ [id number] 06:24:00 Test Item Value Reference Range Comments PROTIME (BEAKER) (test lzgt=750) 13.2 seconds 11.9-14.2 INR (BEAKER) (test kynl=170) 1.1 <=5.9 Effective 12/31/2018: PT Reference Range ChangeNew: 11.9-14.2 Previous: 11.7- 14.7RECOMMENDED COUMADIN/WARFARIN INR THERAPY RANGESSTANDARD DOSE: 2.0-3.0 Includes: PROPHYLAXIS for venous thrombosis, systemic embolization; TREATMENT for venous thrombosis and/or pulmonary embolus.HIGH RISK: Target INR is2.5-3.5 for patients wiht mechanical heart valves.While on warfarin.CBC W/PLT COUNT &amp ; AUTO [id number] 06:20:00 Test Item Value Reference Range Comments WHITE BLOOD CELL COUNT (BEAKER) (test tlzn=292) 7.0 K/ L 3.5-10.5 RED BLOOD CELL COUNT (BEAKER) (test qflw=609) 3.72 M/ L 3.93-5.22 HEMOGLOBIN (BEAKER) (test onxw=706) 10.4 GM/DL 11.2-15.7 HEMATOCRIT (BEAKER) (test zlgz=840) 33.0 % 34.1-44.9 MEAN CORPUSCULAR VOLUME (BEAKER) (test zzir=904) 88.7 fL 79.4-94.8 MEAN CORPUSCULAR HEMOGLOBIN (BEAKER) (test 28.0 pg 25.6-32.2 tpzb=679) MEAN CORPUSCULAR HEMOGLOBIN CONC (BEAKER) (test 31.5 GM/DL 32.2-35.5 yyia=237) RED CELL DISTRIBUTION WIDTH (BEAKER) (test 15.8 % 11.7-14.4 afzf=197) PLATELET COUNT (BEAKER) (test wrkq=153) 388 K/CU MM 150-450 MEAN PLATELET VOLUME (BEAKER) (test abst=381) 10.5 fL 9.4-12.3 NUCLEATED RED BLOOD CELLS (BEAKER) (test 0 /100 WBC 0-0 htcz=314) NEUTROPHILS RELATIVE PERCENT (BEAKER) (test 71 % notz=979) LYMPHOCYTES RELATIVE PERCENT (BEAKER) (test 22 % vfge=871) MONOCYTES RELATIVE PERCENT (BEAKER) (test 6 % ient=145) EOSINOPHILS RELATIVE PERCENT (BEAKER) (test 0 % tiff=567) BASOPHILS RELATIVE PERCENT (BEAKER) (test 0 % dwsh=396) NEUTROPHILS ABSOLUTE COUNT (BEAKER) (test 4.93 K/ L 1.56-6.13 jawr=550) LYMPHOCYTES ABSOLUTE COUNT (BEAKER) (test 1.55 K/ L 1.18-3.74 ynve=322) MONOCYTES ABSOLUTE COUNT (BEAKER) (test 0.42 K/ L 0.24-0.36 jzpl=906) EOSINOPHILS ABSOLUTE COUNT (BEAKER) (test 0.00 K/ L 0.04-0.36 msfm=908) BASOPHILS ABSOLUTE COUNT (BEAKER) (test 0.01 K/ L 0.01-0.08 nvfb=143) IMMATURE GRANULOCYTES-RELATIVE PERCENT (BEAKER) 1 % 0-1 (test dsbw=6677) PROTHROMBIN TIME/[id number] 06:35:00 Test Item Value Reference Range Comments PROTIME (BEAKER) (test fkax=379) 14.7 seconds 11.9-14.2 INR (BEAKER) (test amka=892) 1.2 <=5.9 Effective 12/31/2018: PT Reference Range ChangeNew: 11.9-14.2 Previous: 11.7- 14.7RECOMMENDED COUMADIN/WARFARIN INR THERAPY RANGESSTANDARD DOSE: 2.0-3.0 Includes: PROPHYLAXIS for venous thrombosis, systemic embolization; TREATMENT for venous thrombosis and/or pulmonary embolus.HIGH RISK: Target INR is2.5-3.5 for patients wiht mechanical heart valves.OCCULT BLOOD, [id number] 23:23:00 Test Item Value Reference Range Comments FECAL OCCULT BLOOD (BEAKER) (test mocs=235) Negative Negative PROTHROMBIN TIME/[id number] 07:00:00 Test Item Value Reference Range Comments PROTIME (BEAKER) (test tioe=690) 13.9 seconds 11.9-14.2 INR (BEAKER) (test cfom=824) 1.1 <=5.9 Effective 12/31/2018: PT Reference Range ChangeNew: 11.9-14.2 Previous: 11.7- 14.7RECOMMENDED COUMADIN/WARFARIN INR THERAPY RANGESSTANDARD DOSE: 2.0-3.0 Includes: PROPHYLAXIS for venous thrombosis, systemic embolization; TREATMENT for venous thrombosis and/or pulmonary embolus.HIGH RISK: Target INR is2.5-3.5 for patients wiht mechanical heart valves.CBC W/PLT COUNT & AUTO [id number] 06:52:00 Test Item Value Reference Range Comments WHITE BLOOD CELL COUNT (BEAKER) (test hxpg=101) 7.5 K/ L 3.5-10.5 RED BLOOD CELL COUNT (BEAKER) (test urmh=114) 3.86 M/ L 3.93-5.22 HEMOGLOBIN (BEAKER) (test zktj=969) 10.7 GM/DL 11.2-15.7 HEMATOCRIT (BEAKER) (test vjpq=166) 33.6 % 34.1-44.9 MEAN CORPUSCULAR VOLUME (BEAKER) (test voqb=401) 87.0 fL 79.4-94.8 MEAN CORPUSCULAR HEMOGLOBIN (BEAKER) (test 27.7 pg 25.6-32.2 hlmz=804) MEAN CORPUSCULAR HEMOGLOBIN CONC (BEAKER) (test 31.8 GM/DL 32.2-35.5 xzla=963) RED CELL DISTRIBUTION WIDTH (BEAKER) (test 14.8 % 11.7-14.4 hryf=964) PLATELET COUNT (BEAKER) (test gmrx=937) 383 K/CU MM 150-450 MEAN PLATELET VOLUME (BEAKER) (test hnao=560) 9.8 fL 9.4-12.3 NUCLEATED RED BLOOD CELLS (BEAKER) (test 0 /100 WBC 0-0 xlnx=024) NEUTROPHILS RELATIVE PERCENT (BEAKER) (test 74 % hmlf=617) LYMPHOCYTES RELATIVE PERCENT (BEAKER) (test 19 % esov=106) MONOCYTES RELATIVE PERCENT (BEAKER) (test 5 % lysf=328) EOSINOPHILS RELATIVE PERCENT (BEAKER) (test 0 % hfug=745) BASOPHILS RELATIVE PERCENT (BEAKER) (test 0 % esmr=748) NEUTROPHILS ABSOLUTE COUNT (BEAKER) (test 5.58 K/ L 1.56-6.13 baxf=152) LYMPHOCYTES ABSOLUTE COUNT (BEAKER) (test 1.39 K/ L 1.18-3.74 nirh=559) MONOCYTES ABSOLUTE COUNT (BEAKER) (test 0.36 K/ L 0.24-0.36 qwga=016) EOSINOPHILS ABSOLUTE COUNT (BEAKER) (test 0.00 K/ L 0.04-0.36 mznf=477) BASOPHILS ABSOLUTE COUNT (BEAKER) (test 0.02 K/ L 0.01-0.08 nkdw=345) IMMATURE GRANULOCYTES-RELATIVE PERCENT (BEAKER) 2 % 0-1 (test olft=6741) MYOCARD IMAGING, MULTI, PHARM, [id number] 16:05:00FINAL REPORT PROCEDURE: MYOCARDIAL PERFUSION SPECT IMAGING (Rest/Stress)CPT CODE : [id number] INDICATION: Elevated troponin CARDIOVASCULAR PROFILE:CAD History: NoneSymptoms: [...] MDReport Verified Date/Time: 01/12/2019 16:05:30 Reading Location: [address] Reading Room [id number] 08:57:00 Test Item Value Reference Range Comments THYROID STIMULATING HORMONE (BEAKER) (test 1.50 uIU/mL 0.35-4.94 hfuh=190) [id number] 08:56:00 Test Item Value Reference Range Comments T4 TOTAL (BEAKER) (test tmut=410) 7.9 ug/dL 4.9-11.7 PROTHROMBIN TIME/[id number] 03:12:00 Test Item Value Reference Range Comments PROTIME (BEAKER) (test jsnh=276) 14.0 seconds 11.9-14.2 INR (BEAKER) (test ulhz=177) 1.1 <=5.9 Effective 12/31/2018: PT Reference Range ChangeNew: 11.9-14.2 Previous: 11.7- 14.7RECOMMENDED COUMADIN/WARFARIN INR THERAPY RANGESSTANDARD DOSE: 2.0-3.0 Includes: PROPHYLAXIS for venous thrombosis, systemic embolization; TREATMENT for venous thrombosis and/or pulmonary embolus.HIGH RISK: Target INR is2.5-3.5 for patients wiht mechanical heart valves.CBC (HEMOGRAM ONLY)2019-01-12 03:04:00 Test Item Value Reference Range Comments WHITE BLOOD CELL COUNT (BEAKER) (test ulur=411) 7.2 K/ L 3.5-10.5 RED BLOOD CELL COUNT (BEAKER) (test prki=400) 3.46 M/ L 3.93-5.22 HEMOGLOBIN (BEAKER) (test ekbz=597) 9.7 GM/DL 11.2-15.7 HEMATOCRIT (BEAKER) (test jnza=846) 30.0 % 34.1-44.9 MEAN CORPUSCULAR VOLUME (BEAKER) (test iwpg=409) 86.7 fL 79.4-94.8 MEAN CORPUSCULAR HEMOGLOBIN (BEAKER) (test 28.0 pg 25.6-32.2 ltef=905) MEAN CORPUSCULAR HEMOGLOBIN CONC (BEAKER) (test 32.3 GM/DL 32.2-35.5 lxge=363) RED CELL DISTRIBUTION WIDTH (BEAKER) (test 14.6 % 11.7-14.4 misb=625) PLATELET COUNT (BEAKER) (test yqap=101) 345 K/CU MM 150-450 MEAN PLATELET VOLUME (BEAKER) (test jral=386) 9.8 fL 9.4-12.3 NUCLEATED RED BLOOD CELLS (BEAKER) (test 0 /100 WBC 0-0 jyeb=155) CBC (HEMOGRAM ONLY)2019-01-11 15:42:00 Test Item Value Reference Range Comments WHITE BLOOD CELL COUNT (BEAKER) (test cejn=117) 7.5 K/ L 3.5-10.5 RED BLOOD CELL COUNT (BEAKER) (test xfri=683) 3.65 M/ L 3.93-5.22 HEMOGLOBIN (BEAKER) (test hvmd=192) 10.1 GM/DL 11.2-15.7 HEMATOCRIT (BEAKER) (test zbjz=827) 32.4 % 34.1-44.9 MEAN CORPUSCULAR VOLUME (BEAKER) (test ysux=688) 88.8 fL 79.4-94.8 MEAN CORPUSCULAR HEMOGLOBIN (BEAKER) (test 27.7 pg 25.6-32.2 nmng=499) MEAN CORPUSCULAR HEMOGLOBIN CONC (BEAKER) (test 31.2 GM/DL 32.2-35.5 dhcz=552) RED CELL DISTRIBUTION WIDTH (BEAKER) (test 14.6 % 11.7-14.4 poat=572) PLATELET COUNT (BEAKER) (test zbac=011) 353 K/CU MM 150-450 MEAN PLATELET VOLUME (BEAKER) (test hpsa=679) 9.7 fL 9.4-12.3 NUCLEATED RED BLOOD CELLS (BEAKER) (test 0 /100 WBC 0-0 nxjy=939) BASIC METABOLIC [id number] 14:05:00 Test Item Value Reference Range Comments SODIUM (BEAKER) (test 137 meq/L 136-145 ipba=165) POTASSIUM (BEAKER) (test 4.1 meq/L 3.5-5.1 ztar=022) CHLORIDE (BEAKER) (test 103 meq/L 98-107 uovs=700) CO2 (BEAKER) (test 28 meq/L 22-29 nump=207) BLOOD UREA NITROGEN 5 mg/dL 7-21 (BEAKER) (test tqob=410) CREATININE (BEAKER) (test 0.68 mg/dL 0.57-1.25 vowe=951) GLUCOSE RANDOM (BEAKER) 97 mg/dL 70-105 (test gmht=817) CALCIUM (BEAKER) (test 7.9 mg/dL 8.4-10.2 qkio=628) EGFR (BEAKER) (test 89 mL/min/1.73 sq m ESTIMATED GFR IS NOT qlkf=3444) ACCURATE CREATININE CLEARANCE IN PREDICTING GLOMERULAR FILTRATION RATE. ESTIMATED GFR IS NOT APPLICABLE FOR DIALYSIS PATIENTS. TROPONIN [id number] 09:07:00 Test Item Value Reference Range Comments TROPONIN I (BEAKER) (test ynxp=061) 0.06 ng/mL 0.00-0.03 Troponin I (TnI) levels [...] acidosis, acute neurological disease, and persistent tachyarrhythmia.TROPONIN [id number] 06:51:00 Test Item Value Reference Range Comments TROPONIN I (BEAKER) (test erxb=928) 0.05 ng/mL 0.00-0.03 Troponin I (TnI) levels [...] acute neurological disease, and persistent tachyarrhythmia.BASIC METABOLIC [id number] 06:51:00 Test Item Value Reference Range Comments SODIUM (BEAKER) (test 139 meq/L 136-145 vwxe=812) POTASSIUM (BEAKER) (test 3.0 meq/L 3.5-5.1 gxnl=765) CHLORIDE (BEAKER) (test 102 meq/L 98-107 bnoa=641) CO2 (BEAKER) (test 29 meq/L 22-29 jdpv=043) BLOOD UREA NITROGEN 6 mg/dL 7-21 (BEAKER) (test qrdn=806) CREATININE (BEAKER) (test 0.71 mg/dL 0.57-1.25 tvfg=273) GLUCOSE RANDOM (BEAKER) 118 mg/dL 70-105 (test xyem=342) CALCIUM (BEAKER) (test 7.8 mg/dL 8.4-10.2 scvs=962) EGFR (BEAKER) (test 84 mL/min/1.73 sq m ESTIMATED GFR IS NOT mqts=4616) ACCURATE CREATININE CLEARANCE IN PREDICTING GLOMERULAR FILTRATION RATE. ESTIMATED GFR IS NOT APPLICABLE FOR DIALYSIS PATIENTS. [id number] 06:44:00 Test Item Value Reference Range Comments MAGNESIUM (BEAKER) (test savs=247) 1.8 mg/dL 1.6-2.6 PT/[id number] 04:26:00 Test Item Value Reference Range Comments PROTIME (BEAKER) (test vwts=550) 14.9 seconds 11.9-14.2 INR (BEAKER) (test uois=123) 1.2 <=5.9 PARTIAL THROMBOPLASTIN TIME (BEAKER) (test 90.9 seconds 22.5-36.0 hzeo=734) Effective 12/31/2018: PT Reference Range ChangeNew: 11.9-14.2 Previous: 11.7- 14.7RECOMMENDED COUMADIN/WARFARIN INR THERAPY RANGESSTANDARD DOSE: 2.0-3.0 Includes: PROPHYLAXIS for venous thrombosis, systemic embolization; TREATMENT for venous thrombosis and/or pulmonary embolus.HIGH RISK: Target INR is2.5-3.5 for patients wiht mechanical heart valves.Per heparin sliding scalePer heparin sliding scaleHEMOGLOBIN AND [id number] 04:15:00 Test Item Value Reference Range Comments HEMOGLOBIN (BEAKER) (test xdoc=409) 9.5 GM/DL 11.2-15.7 HEMATOCRIT (BEAKER) (test depp=378) 30.2 % 34.1-44.9 TROPONIN [id number] 22:28:00 Test Item Value Reference Range Comments TROPONIN I (BEAKER) (test yddr=687) 0.07 ng/mL 0.00-0.03 Troponin I (TnI) levels [...] failure, acidosis, acute neurological disease, and persistent tachyarrhythmia.PT/[id number] 22:15:00 Test Item Value Reference Range Comments PROTIME (BEAKER) (test ovhi=553) 15.0 seconds 11.9-14.2 INR (BEAKER) (test rpdh=703) 1.2 <=5.9 PARTIAL THROMBOPLASTIN TIME (BEAKER) (test 38.3 seconds 22.5-36.0 azuy=148) Effective 12/31/2018: PT Reference Range ChangeNew: 11.9-14.2 Previous: 11.7- 14.7RECOMMENDED COUMADIN/WARFARIN INR THERAPY RANGESSTANDARD DOSE: 2.0-3.0 Includes: PROPHYLAXIS for venous thrombosis, systemic embolization; TREATMENT for venous thrombosis and/or pulmonary embolus.HIGH RISK: Target INR is2.5-3.5 for patients wiht mechanical heart valves.Per heparin sliding scalePer heparin sliding scaleRAD, ABDOMEN/KUB, 1 VIEW [id number] 18:44:00Reason for exam:-> vomitingFINAL REPORT Abdomen dated [...] MDReport Verified Date/Time: 01/10/2019 18:44:41 Reading Location: [address] Body Reading Room [id number] 14:44:00 Test Item Value Reference Range Comments MAGNESIUM (BEAKER) (test yxyq=524) 1.6 mg/dL 1.6-2.6 BASIC METABOLIC [id number] 14:44:00 Test Item Value Reference Range Comments SODIUM (BEAKER) (test 140 meq/L 136-145 zdlh=230) POTASSIUM (BEAKER) (test 2.9 meq/L 3.5-5.1 sgmq=003) CHLORIDE (BEAKER) (test 105 meq/L 98-107 dghr=432) CO2 (BEAKER) (test 28 meq/L 22-29 urak=529) BLOOD UREA NITROGEN 7 mg/dL 7-21 (BEAKER) (test jrma=870) CREATININE (BEAKER) (test 0.69 mg/dL 0.57-1.25 jqpb=238) GLUCOSE RANDOM (BEAKER) 84 mg/dL 70-105 (test gnrk=537) CALCIUM (BEAKER) (test 8.0 mg/dL 8.4-10.2 zycu=702) EGFR (BEAKER) (test 87 mL/min/1.73 sq m ESTIMATED GFR IS NOT xayg=2446) ACCURATE CREATININE CLEARANCE IN PREDICTING GLOMERULAR FILTRATION RATE. ESTIMATED GFR IS NOT APPLICABLE FOR DIALYSIS PATIENTS. TROPONIN [id number] 14:44:00 Test Item Value Reference Range Comments TROPONIN I (BEAKER) (test assq=585) 0.08 ng/mL 0.00-0.03 Troponin I (TnI) levels [...] and persistent tachyarrhythmia.CBC W/PLT COUNT & AUTO [id number] 14:34:00 Test Item Value Reference Range Comments WHITE BLOOD CELL COUNT (BEAKER) (test luaf=275) 6.6 K/ L 3.5-10.5 RED BLOOD CELL COUNT (BEAKER) (test tekt=707) 3.38 M/ L 3.93-5.22 HEMOGLOBIN (BEAKER) (test mkcd=012) 9.4 GM/DL 11.2-15.7 HEMATOCRIT (BEAKER) (test wmdw=718) 30.2 % 34.1-44.9 MEAN CORPUSCULAR VOLUME (BEAKER) (test narg=086) 89.3 fL 79.4-94.8 MEAN CORPUSCULAR HEMOGLOBIN (BEAKER) (test 27.8 pg 25.6-32.2 sena=323) MEAN CORPUSCULAR HEMOGLOBIN CONC (BEAKER) (test 31.1 GM/DL 32.2-35.5 qyvx=889) RED CELL DISTRIBUTION WIDTH (BEAKER) (test 15.0 % 11.7-14.4 lqxj=234) PLATELET COUNT (BEAKER) (test heca=015) 288 K/CU MM 150-450 MEAN PLATELET VOLUME (BEAKER) (test difh=410) 10.5 fL 9.4-12.3 NUCLEATED RED BLOOD CELLS (BEAKER) (test 0 /100 WBC 0-0 xywp=467) NEUTROPHILS RELATIVE PERCENT (BEAKER) (test 68 % ezey=439) LYMPHOCYTES RELATIVE PERCENT (BEAKER) (test 24 % ivhl=356) MONOCYTES RELATIVE PERCENT (BEAKER) (test 5 % abfd=427) EOSINOPHILS RELATIVE PERCENT (BEAKER) (test 0 % wfie=915) BASOPHILS RELATIVE PERCENT (BEAKER) (test 0 % ioca=271) NEUTROPHILS ABSOLUTE COUNT (BEAKER) (test 4.42 K/ L 1.56-6.13 ixhy=798) LYMPHOCYTES ABSOLUTE COUNT (BEAKER) (test 1.59 K/ L 1.18-3.74 qnrk=333) MONOCYTES ABSOLUTE COUNT (BEAKER) (test 0.35 K/ L 0.24-0.36 tmfx=375) EOSINOPHILS ABSOLUTE COUNT (BEAKER) (test 0.00 K/ L 0.04-0.36 boon=211) BASOPHILS ABSOLUTE COUNT (BEAKER) (test 0.02 K/ L 0.01-0.08 gyry=220) IMMATURE GRANULOCYTES-RELATIVE PERCENT (BEAKER) 3 % 0-1 (test ihpt=6197) [id number] 13:25:00 Test Item Value Reference Range Comments AMYLASE (BEAKER) (test zlcb=100) 29 U/L 25-125 [id number] 13:25:00 Test Item Value Reference Range Comments LIPASE (BEAKER) (test fihd=833) 16 U/L 8-78 [id number] 13:24:00 Test Item Value Reference Range Comments PARTIAL THROMBOPLASTIN TIME (BEAKER) (test 41.1 seconds 22.5-36.0 ctoq=608) 6 hours after starting heparin infusion and as indicated per sliding scaleHEMOGLOBIN AND [id number] 13:10:00 Test Item Value Reference Range Comments HEMOGLOBIN (BEAKER) (test xwbt=217) 9.3 GM/DL 11.2-15.7 HEMATOCRIT (BEAKER) (test bmkj=857) 30.0 % 34.1-44.9 U/S, ABDOMINAL, [id number] 12:16:00Abdomen limited area? Add comment if clarification [...] MDReport Verified Date/Time: 01/10/2019 12:16:23 Reading Location: [address] Consult Reading Room PT/[id number] 20:52:00 Test Item Value Reference Range Comments PROTIME (BEAKER) (test bvte=044) 18.3 seconds 11.9-14.2 INR (BEAKER) (test cvyq=772) 1.6 <=5.9 PARTIAL THROMBOPLASTIN TIME (BEAKER) (test 56.3 seconds 22.5-36.0 maxo=029) Effective 12/31/2018: PT Reference Range ChangeNew: 11.9-14.2 Previous: 11.7- 14.7RECOMMENDED COUMADIN/WARFARIN INR THERAPY RANGESSTANDARD DOSE: 2.0-3.0 Includes: PROPHYLAXIS for venous thrombosis, systemic embolization; TREATMENT for venous thrombosis and/or pulmonary embolus.HIGH RISK: Target INR is2.5-3.5 for patients wiht mechanical heart valves.HEMOGLOBIN AND [id number] 16 :23:00 Test Item Value Reference Range Comments HEMOGLOBIN (BEAKER) (test zhti=955) 9.4 GM/DL 11.2-15.7 HEMATOCRIT (BEAKER) (test zjyu=175) 29.9 % 34.1-44.9 PT/[id number] 07:42:00 Test Item Value Reference Range Comments PROTIME (BEAKER) (test xbvw=493) 19.1 seconds 11.9-14.2 INR (BEAKER) (test lbpy=498) 1.7 <=5.9 PARTIAL THROMBOPLASTIN TIME (BEAKER) (test 111.0 seconds 22.5-36.0 awyc=745) Effective 12/31/2018: PT Reference Range ChangeNew: 11.9-14.2 Previous: 11.7- 14.7RECOMMENDED COUMADIN/WARFARIN INR THERAPY RANGESSTANDARD DOSE: 2.0-3.0 Includes: PROPHYLAXIS for venous thrombosis, systemic embolization; TREATMENT for venous thrombosis and/or pulmonary embolus.HIGH RISK: Target INR is2.5-3.5 for patients wiht mechanical heart valves.[id number] 03:41:00 Test Item Value Reference Range Comments MAGNESIUM (BEAKER) (test lndg=439) 1.7 mg/dL 1.6-2.6 BASIC METABOLIC [id number] 03:41:00 Test Item Value Reference Range Comments SODIUM (BEAKER) (test 140 meq/L 136-145 rtim=401) POTASSIUM (BEAKER) (test 4.2 meq/L 3.5-5.1 shjj=788) CHLORIDE (BEAKER) (test 106 meq/L 98-107 uqjm=443) CO2 (BEAKER) (test 29 meq/L 22-29 wrjg=857) BLOOD UREA NITROGEN 7 mg/dL 7-21 (BEAKER) (test nqkz=019) CREATININE (BEAKER) (test 0.68 mg/dL 0.57-1.25 xatp=624) GLUCOSE RANDOM (BEAKER) 114 mg/dL 70-105 (test pwnn=045) CALCIUM (BEAKER) (test 7.9 mg/dL 8.4-10.2 wdxu=929) EGFR (BEAKER) (test 89 mL/min/1.73 sq m ESTIMATED GFR IS NOT quoy=4019) ACCURATE CREATININE CLEARANCE IN PREDICTING GLOMERULAR FILTRATION RATE. ESTIMATED GFR IS NOT APPLICABLE FOR DIALYSIS PATIENTS. PROTHROMBIN TIME/[id number] 03:35:00 Test Item Value Reference Range Comments PROTIME (BEAKER) (test smsz=078) 19.6 seconds 11.9-14.2 INR (BEAKER) (test bnuy=412) 1.8 <=5.9 Effective 12/31/2018: PT Reference Range ChangeNew: 11.9-14.2 Previous: 11.7- 14.7RECOMMENDED COUMADIN/WARFARIN INR THERAPY RANGESSTANDARD DOSE: 2.0-3.0 Includes: PROPHYLAXIS for venous thrombosis, systemic embolization; TREATMENT for venous thrombosis and/or pulmonary embolus.HIGH RISK: Target INR is2.5-3.5 for patients wiht mechanical heart valves.HEMOGLOBIN AND [id number] 03 :21:00 Test Item Value Reference Range Comments HEMOGLOBIN (BEAKER) (test zeiy=334) 8.8 GM/DL 11.2-15.7 HEMATOCRIT (BEAKER) (test cmyl=856) 27.9 % 34.1-44.9 PT/[id number] 23:57:00 Test Item Value Reference Range Comments PROTIME (BEAKER) (test hvxd=714) 19.1 seconds 11.9-14.2 INR (BEAKER) (test zcya=404) 1.7 <=5.9 PARTIAL THROMBOPLASTIN TIME (BEAKER) (test 84.3 seconds 22.5-36.0 efhj=852) Effective 12/31/2018: PT Reference Range ChangeNew: 11.9-14.2 Previous: 11.7- 14.7RECOMMENDED COUMADIN/WARFARIN INR THERAPY RANGESSTANDARD DOSE: 2.0-3.0 Includes: PROPHYLAXIS for venous thrombosis, systemic embolization; TREATMENT for venous thrombosis and/or pulmonary embolus.HIGH RISK: Target INR is2.5-3.5 for patients wiht mechanical heart valves.PT/[id number] 22:20:00 Test Item Value Reference Range Comments PROTIME (BEAKER) (test jsaq=774) 19.3 seconds 11.9-14.2 INR (BEAKER) (test lwje=373) 1.7 <=5.9 PARTIAL THROMBOPLASTIN TIME (BEAKER) (test 111.7 seconds 22.5-36.0 jcuj=048) Effective 12/31/2018: PT Reference Range ChangeNew: 11.9-14.2 Previous: 11.7- 14.7RECOMMENDED COUMADIN/WARFARIN INR THERAPY RANGESSTANDARD DOSE: 2.0-3.0 Includes: PROPHYLAXIS for venous thrombosis, systemic embolization; TREATMENT for venous thrombosis and/or pulmonary embolus.HIGH RISK: Target INR is2.5-3.5 for patients wiht mechanical heart valves.Patient is on agartrobanPatient is on agartrobanHEMOGLOBIN AND [id number] 22:08:00 Test Item Value Reference Range Comments HEMOGLOBIN (BEAKER) (test flcl=567) 9.6 GM/DL 11.2-15.7 HEMATOCRIT (BEAKER) (test xunk=685) 30.5 % 34.1-44.9 HEMOGLOBIN AND [id number] 16:25:00 Test Item Value Reference Range Comments HEMOGLOBIN (BEAKER) (test qwzt=469) 8.7 GM/DL 11.2-15.7 HEMATOCRIT (BEAKER) (test dltf=392) 27.5 % 34.1-44.9 CBC (HEMOGRAM ONLY)2019-01-08 16:25:00 Test Item Value Reference Range Comments WHITE BLOOD CELL COUNT (BEAKER) (test xddf=726) 5.7 K/ L 3.5-10.5 RED BLOOD CELL COUNT (BEAKER) (test lpii=758) 3.13 M/ L 3.93-5.22 HEMOGLOBIN (BEAKER) (test cfcz=891) 8.7 GM/DL 11.2-15.7 HEMATOCRIT (BEAKER) (test iuer=973) 27.5 % 34.1-44.9 MEAN CORPUSCULAR VOLUME (BEAKER) (test cifw=155) 87.9 fL 79.4-94.8 MEAN CORPUSCULAR HEMOGLOBIN (BEAKER) (test 27.8 pg 25.6-32.2 gnrd=385) MEAN CORPUSCULAR HEMOGLOBIN CONC (BEAKER) (test 31.6 GM/DL 32.2-35.5 qkig=479) RED CELL DISTRIBUTION WIDTH (BEAKER) (test 15.6 % 11.7-14.4 gzvy=276) PLATELET COUNT (BEAKER) (test bnmy=522) 226 K/CU MM 150-450 MEAN PLATELET VOLUME (BEAKER) (test adpq=913) 10.8 fL 9.4-12.3 NUCLEATED RED BLOOD CELLS (BEAKER) (test 0 /100 WBC 0-0 tcqm=617) [id number] 15:07:00 Test Item Value Reference Range Comments PARTIAL THROMBOPLASTIN TIME (BEAKER) (test 59.8 seconds 22.5-36.0 xjhs=111) PROTHROMBIN TIME/[id number] 14:32:00 Test Item Value Reference Range Comments PROTIME (BEAKER) (test gjdn=361) 19.7 seconds 11.9-14.2 INR (BEAKER) (test jgnn=491) 1.8 <=5.9 Effective 12/31/2018: PT Reference Range ChangeNew: 11.9-14.2 Previous: 11.7- 14.7RECOMMENDED COUMADIN/WARFARIN INR THERAPY RANGESSTANDARD DOSE: 2.0-3.0 Includes: PROPHYLAXIS for venous thrombosis, systemic embolization; TREATMENT for venous thrombosis and/or pulmonary embolus.HIGH RISK: Target INR is2.5-3.5 for patients wiht mechanical heart valves.B-TYPE NATRIURETIC FACTOR (BNP)2019-01 12:44:00 Test Item Value Reference Range Comments B-TYPE NATRIURETIC PEPTIDE (BEAKER) (test 526 pg/mL 0-100 qopj=202) [id number] 12:34:00 Test Item Value Reference Range Comments POTASSIUM (BEAKER) (test bnqj=966) 3.9 meq/L 3.5-5.1 [id number] 12:34:00 Test Item Value Reference Range Comments MAGNESIUM (BEAKER) (test fmtd=591) 2.0 mg/dL 1.6-2.6 [id number] 11:33:00 Test Item Value Reference Range Comments PROCALCITONIN (BEAKER) (test uurp=7343) 0.05 ng/mL <0.05 SEPSIS RISK (ng/mL)Low: 0.05-0.50Intermediate: 0.51-2.00High: & gt;=2.01LACTIC ACID, [id number] 10:31:00 Test Item Value Reference Range Comments LACTATE BLOOD VENOUS (2) (BEAKER) (test 0.7 mmol/L 0.5-2.2 jgto=2546) HEMOGLOBIN AND [id number] 10:10:00 Test Item Value Reference Range Comments HEMOGLOBIN (BEAKER) (test hvfu=381) 8.3 GM/DL 11.2-15.7 HEMATOCRIT (BEAKER) (test nqru=503) 26.2 % 34.1-44.9 BASIC METABOLIC [id number] 08:27:00 Test Item Value Reference Range Comments SODIUM (BEAKER) (test 139 meq/L 136-145 nfuq=791) POTASSIUM (BEAKER) (test 3.2 meq/L 3.5-5.1 wqra=894) CHLORIDE (BEAKER) (test 105 meq/L 98-107 gzjq=628) CO2 (BEAKER) (test 28 meq/L 22-29 uckd=064) BLOOD UREA NITROGEN 8 mg/dL 7-21 (BEAKER) (test ixwz=348) CREATININE (BEAKER) (test 0.72 mg/dL 0.57-1.25 sqrh=959) GLUCOSE RANDOM (BEAKER) 91 mg/dL 70-105 (test mkuc=237) CALCIUM (BEAKER) (test 7.6 mg/dL 8.4-10.2 rldq=502) EGFR (BEAKER) (test 83 mL/min/1.73 sq m ESTIMATED GFR IS NOT bong=4347) ACCURATE CREATININE CLEARANCE IN PREDICTING GLOMERULAR FILTRATION RATE. ESTIMATED GFR IS NOT APPLICABLE FOR DIALYSIS PATIENTS. RAD, CHEST, 1 VIEW, NON [id number] 08:17:00Reason for exam:->pulmonary edemaShould this be performed [...] [place] Verified Date/Time: 2018 08:17:31 Reading Location: [facility] Radiology Reading Room [id number] 08:12:00 Test Item Value Reference Range Comments MAGNESIUM (BEAKER) (test gtdi=791) 2.0 mg/dL 1.6-2.6 [id number] 07:14:00 Test Item Value Reference Range Comments FERRITIN (BEAKER) (test mdqw=764) 346 ng/mL 5-275 IRON, TIBC, % SAT. (WITHOUT FERRITIN)2019-01-08 06:51:00 Test Item Value Reference Range Comments IRON (BEAKER) (test opvq=124) 27.0 ug/dL 40.0-160.0 TOTAL IRON BINDING CAPACITY (BEAKER) (test 196 ug/dL 250-450 eywl=901) IRON % SATURATION (2) (BEAKER) (test luvq=2657) 14 % 20-55 HEMOGLOBIN AND [id number] 06:25:00 Test Item Value Reference Range Comments HEMOGLOBIN (BEAKER) (test tvuc=942) 7.8 GM/DL 11.2-15.7 HEMATOCRIT (BEAKER) (test gzai=827) 24.4 % 34.1-44.9 THROMBOELASTOGRAPH (TEG)2019-01-08 01:42:00 Test Item Value Reference Range Comments TEG ACTIVATED CLOTTING TIME (BEAKER) (test 8.4 minutes 4.0-7.0 vocc=4855) TEG FIBRINOGEN ACTIVITY (BEAKER) (test 71.7 degrees 61.0-73.0 hmwv=6850) TEG PLT. AGGREGATION (BEAKER) (test gqzn=6843) 68.2 MM 55.0-65.0 TEG FIBRINOLYSIS (BEAKER) (test sodp=5583) 0.0 % 0.0-5.0 TGH ACTIVATED CLOTTING TIME (BEAKER) (test 8.9 minutes 4.0-7.0 edxv=2541) TGH FIBRINOGEN ACTIVITY (BEAKER) (test 70.1 degrees 61.0-73.0 rbcs=8694) TGH PLT. AGGREGATION (BEAKER) (test ezhi=5093) 65.3 MM 55.0-65.0 TGH FIBRINOLYSIS (BEAKER) (test dyog=9014) 0.0 % 0.0-5.0 RAD, CHEST, 1 VIEW, NON [id number] 23:31:00Reason for exam:-> DyspneaShould this be performed [...] Verified Date/Time : 01/07/2019 23:31:03 Reading Location: [address] Reading Room COMPREHENSIVE METABOLIC [id number] 22:56:00 Test Item Value Reference Range Comments TOTAL PROTEIN (BEAKER) 5.8 gm/dL 6.0-8.3 (test koaf=348) ALBUMIN (BEAKER) (test 3.0 g/dL 3.5-5.0 sbzx=6038) ALKALINE PHOSPHATASE 56 U/L 40-150 (BEAKER) (test sili=861) BILIRUBIN TOTAL (BEAKER) 0.7 mg/dL 0.2-1.2 (test vtzc=686) SODIUM (BEAKER) (test 139 meq/L 136-145 klsu=617) POTASSIUM (BEAKER) (test 3.4 meq/L 3.5-5.1 vvwy=691) CHLORIDE (BEAKER) (test 109 meq/L 98-107 uzqw=319) CO2 (BEAKER) (test 23 meq/L 22-29 mojz=532) BLOOD UREA NITROGEN 9 mg/dL 7-21 (BEAKER) (test ifgs=354) CREATININE (BEAKER) (test 0.75 mg/dL 0.57-1.25 vkrs=220) GLUCOSE RANDOM (BEAKER) 102 mg/dL 70-105 (test uojc=223) CALCIUM (BEAKER) (test 7.1 mg/dL 8.4-10.2 bcyf=219) AST (SGOT) (BEAKER) (test 25 U/L 5-34 yitz=226) ALT (SGPT) (BEAKER) (test 11 U/L 6-55 lbpu=105) EGFR (BEAKER) (test 79 mL/min/1.73 sq m ESTIMATED GFR IS NOT mmmj=6427) ACCURATE CREATININE CLEARANCE IN PREDICTING GLOMERULAR FILTRATION RATE. ESTIMATED GFR IS NOT APPLICABLE FOR DIALYSIS PATIENTS. [id number] 22:51:00 Test Item Value Reference Range Comments MAGNESIUM (BEAKER) (test qqul=813) 1.3 mg/dL 1.6-2.6 [id number] 22:45:00 Test Item Value Reference Range Comments FIBRINOGEN LEVEL (BEAKER) (test jgjd=641) 509 mg/dl 225-434 PROTHROMBIN TIME/[id number] 22:09:00 Test Item Value Reference Range Comments PROTIME (BEAKER) (test qskn=533) 20.5 seconds 11.9-14.2 INR (BEAKER) (test quxf=226) 1.9 <=5.9 Effective 12/31/2018: PT Reference Range ChangeNew: 11.9-14.2 Previous: 11.7- 14.7RECOMMENDED COUMADIN/WARFARIN INR THERAPY RANGESSTANDARD DOSE: 2.0-3.0 Includes: PROPHYLAXIS for venous thrombosis, systemic embolization; TREATMENT for venous thrombosis and/or pulmonary embolus.HIGH RISK: Target INR is2.5-3.5 for patients wiht mechanical heart valves.CBC W/PLT COUNT & AUTO [id number] 22:05:00 Test Item Value Reference Range Comments WHITE BLOOD CELL COUNT (BEAKER) (test vwhp=684) 4.2 K/ L 3.5-10.5 RED BLOOD CELL COUNT (BEAKER) (test ctqr=516) 2.41 M/ L 3.93-5.22 HEMOGLOBIN (BEAKER) (test yuas=541) 6.7 GM/DL 11.2-15.7 HEMATOCRIT (BEAKER) (test wxaz=951) 21.4 % 34.1-44.9 MEAN CORPUSCULAR VOLUME (BEAKER) (test qxfe=216) 88.8 fL 79.4-94.8 MEAN CORPUSCULAR HEMOGLOBIN (BEAKER) (test 27.8 pg 25.6-32.2 kyyo=398) MEAN CORPUSCULAR HEMOGLOBIN CONC (BEAKER) (test 31.3 GM/DL 32.2-35.5 fpse=228) RED CELL DISTRIBUTION WIDTH (BEAKER) (test 14.2 % 11.7-14.4 uwji=281) PLATELET COUNT (BEAKER) (test ttms=407) 208 K/CU MM 150-450 MEAN PLATELET VOLUME (BEAKER) (test vrmz=013) 10.2 fL 9.4-12.3 NUCLEATED RED BLOOD CELLS (BEAKER) (test 0 /100 WBC 0-0 ttca=199) NEUTROPHILS RELATIVE PERCENT (BEAKER) (test 73 % oyuw=581) LYMPHOCYTES RELATIVE PERCENT (BEAKER) (test 19 % ozam=661) MONOCYTES RELATIVE PERCENT (BEAKER) (test 8 % lizf=569) EOSINOPHILS RELATIVE PERCENT (BEAKER) (test 0 % otwf=536) BASOPHILS RELATIVE PERCENT (BEAKER) (test 0 % cleu=230) NEUTROPHILS ABSOLUTE COUNT (BEAKER) (test 3.08 K/ L 1.56-6.13 sopc=706) LYMPHOCYTES ABSOLUTE COUNT (BEAKER) (test 0.79 K/ L 1.18-3.74 jfyz=504) MONOCYTES ABSOLUTE COUNT (BEAKER) (test 0.32 K/ L 0.24-0.36 mygr=563) EOSINOPHILS ABSOLUTE COUNT (BEAKER) (test 0.00 K/ L 0.04-0.36 uxca=503) BASOPHILS ABSOLUTE COUNT (BEAKER) (test 0.00 K/ L 0.01-0.08 swsn=929) IMMATURE GRANULOCYTES-RELATIVE PERCENT (BEAKER) 1 % 0-1 (test kcfk=2354)
[2019-06-19] MEDS ORDERED: HYDROCODONE/APAP 10/325 TAB ONE (17:21)
[2019-06-19 17:43] LABS: Absolute Lymphocytes (CBC) 0.8 K/uL (0.7-4.9); Basophils % 0.1 % (0-1.3); Hematocrit 34.1 % (36.0-45.0); Lymphocytes % 12.3 % (15.3-44.8); MPV 8.8 fL (7.6-11.3); RBC Red Blood Cell Count 4.05 M/uL (3.86-4.86)
[2019-06-19 18:00] LABS: Potassium 3.9 mmol/L (3.5-5.1)
[2019-06-19 18:11] LABS: Protime INR 1.8
--- NOTE | 2019-06-19 18:36 | RAD REPORT ---
EXAM DESCRIPTION: RAD - Hip Left 2 View - 06/19/2019 6:11 pm CLINICAL HISTORY: Left hip pain status post injury FINDINGS: No fracture or dislocation is seen. Left hip arthroplasty. Prosthesis is in good position without evidence of loosening. Soft tissue swelling laterally consistent with hematoma Osteoporosis
--- NOTE | 2019-06-19 18:38 | RAD REPORT ---
EXAM DESCRIPTION: RAD - Ribs Left - 06/19/2019 6:11 pm CLINICAL HISTORY: Left rib pain FINDINGS: No fracture is seen
--- NOTE | 2019-06-19 18:39 | RAD REPORT ---
EXAM DESCRIPTION: [place] Single View06/19/2019 6:11 pm CLINICAL HISTORY: Chest pain COMPARISON: December 2018 FINDINGS: The lungs appear clear of acute infiltrate. The heart is mildly enlarged. Postsurgical changes involve the chest. IMPRESSION: No acute abnormalities displayed
--- NOTE | 2019-06-19 19:06 | ER ---
Nurse's Notes [facility] Name: Kim Aldana Age: 58 yrs Sex: Female : 1960 Arrival Date: 06/19/2019 Time: 16:14 Bed 26 Private MD: Diagnosis: Pain in left hip-hematoma Presentation: 06/19 16:29 Presenting complaint: Patient states: i fell this morning around 1135, i tripped over a tw2 box and i hit my LEFT hip and it already has a hematoma on it and it is swollen more, i had a previous fall a couple of months ago on the same hip. Transition of care: patient was not received from another setting of care. Onset of symptoms was June 19, 2019. Risk Assessment: Do you want to hurt yourself or someone else? Patient reports no desire to harm self or others. Initial Sepsis Screen: Does the patient meet any 2 criteria? No. Patient's initial sepsis screen is negative. Does the patient have a suspected source of infection? No. Patient's initial sepsis screen is negative. Care prior to arrival: None. 16:29 Method Of Arrival: Ambulatory tw2 16:29 Acuity: CABRERA 3 tw2 16:57 Mechanism of Injury: Fall. Trauma event details: Injury occurred in the [facility], Injury occurred: at home. Injury occurred: June 19, 2019 Injury occurred at: 11:30. Triage Assessment: 16:31 General: Appears in no apparent distress. Behavior is calm, cooperative, appropriate tw2 for age. Pain: Complains of pain in LEFT hip. Historical: - Allergies: 16:35 plastic tape; tw2 16:35 Phenergan; tw2 16:35 PENICILLINS; tw2 16:35 Neurontin; tw2 16:35 Morphine; tw2 16:35 Methadone; tw2 16:35 Dilaudid; tw2 16:35 Demerol; tw2 16:35 Compazine; tw2 16:35 Aspirin; tw2 - Home Meds: 16:35 calcium with viatmin D, 1 po daily [Active]; amitriptyline 75 mg Oral tab [Active]; tw2 Albuterol Inhl [Active]; acyclovir 400 mg Oral tab 2 tabs daily [Active]; alprazolam 2 mg Oral tab twice a day [Active]; cyclobenzaprine 10 mg Oral tab 4 times daily [Active]; Estrace 0.01 twice weekly Oral [Active]; gabapentin 300 mg Oral cap daily [Active]; Fish Oil 1,000 mg Oral cap daily [Active]; magnesium oxide 400 mg Oral cap daily [Active]; multivitamin Oral cap daily [Active]; potassium gluconate 595 mg (99 mg) Oral tab daily [Active]; Prilosec 20 mg Oral cpDR 2 times per day [Active]; metoprolol tartrate 25 mg Oral tab once daily [Active]; prednisone 2.5 mg Oral tab once daily [Active]; warfarin 4 mg Oral tab once daily [Active]; Sumatriptan Sub-Q [Active]; Restasis ophthalmic [Active]; Zofran (as hydrochloride) 4 mg Oral tab 2 times per day [Active]; Lyrica 100mg 2 po daily Oral [Active]; minocycline 100 mg Oral cap 2 times per day [Active]; levothyroxine 150 mcg tab once daily [Active]; biotin 5000 mcg Oral daily [Active]; - PMHx: 16:35 venous insufficiency; pulmonary edema; Tachycardia; osteomyelitis; menopause; lumbar tw2 radiculitis; hypersomnia; Lupus; Dyspepsia; dejenteritive joint disease; esophageal reflux; Chronic pain; chest pain; Back pain; Panic Attacks; arterial insuficiency; fatigue; cerebritis; Seizures; TIA; - PSHx: 16:35 heart valve replacement; colon removed; Appendectomy; lens implants; left hip tw2 replacement; right knee replacement; right hip replacement; left foot; - Immunization history:: Adult Immunizations. - Social history:: Smoking status: . - Immunization history: Last tetanus immunization:. - Ebola Screening: : Patient denies travel to an Ebola-affected area in the 21 days before illness onset. Screenin:55 Abuse screen: Denies threats or abuse. Denies injuries from another. Nutritional rv screening: No deficits noted. Tuberculosis screening: No symptoms or risk factors identified. Fall Risk Fall in past 12 months (25 points). Secondary diagnosis (15 points) impaired mobility, No IV (0 pts). Ambulatory Aid- Crutches/Cane/Walker (15 pts). Gait- Impaired (20 pts.). Mental Status- Oriented to own ability (0 pts). Total Cool Fall Scale indicates Low Risk Score (25-44 pts). Primary Survey: 16:55 NO uncontrolled hemorrhage observed. Breathing/Chest: Respiratory pattern: regular, rv Chest inspection: symmetrical rise and fall of the chest. Circulation: Skin color: pink. Disability Alert. Exposure/Environment: There is no evidence of uncontrolled external bleeding. A warming method has been applied: A warm blanket has been provided to the patient. Assessment: 16:52 General: Appears in no apparent distress. uncomfortable, Behavior is calm, cooperative. rv Pain: Complains of pain in left breast and left hip. Neuro: Level of Consciousness is awake, alert, obeys commands, Oriented to person, place, time, situation. Cardiovascular: Patient's skin is warm and dry. Respiratory: Airway is patent. GI: No signs and/or symptoms were reported involving the gastrointestinal system. : No signs and/or symptoms were reported regarding the genitourinary system. EENT: No signs and/or symptoms were reported regarding the EENT system. Derm: Bruising that is dark purple, on left hip. Musculoskeletal: Swelling present in left hip Reports pain in left breast and left hip. Vital Signs: 16:31 BP 108 / 65; Pulse 95; Resp 18; Temp 99.1(TE); Pulse Ox 100% on R/A; Weight 63.5 kg tw2 (R); Pain 10/10; 18:00 BP 100 / 60; Pulse 99; Resp 17; Pulse Ox 98% on R/A; rv 19:00 BP 104 / 51; Pulse 85; Resp 16; Pulse Ox 98% on R/A; rv 16:31 when i try to straighten my leg tw2 [place] Coma Score: 16:56 Eye Response: spontaneous(4). Verbal Response: oriented(5). Motor Response: obeys rv commands(6). Total: 15. Trauma Score (Adult): 16:56 Eye Response: spontaneous(1); Verbal Response: oriented(1); Motor Response: obeys rv commands(2); Systolic BP: > 89 mm Hg(4); Respiratory Rate: 10 to 29 per min(4); [place] Score: 15; Trauma Score: 12 ED Course: 16:14 Patient arrived in ED. as 16:31 Triage completed. tw2 16:31 Arm band placed on. tw2 16:37 Vick Barakat MD is Attending Physician. kdr 16:46 Adilson Martinez, RN is Primary Nurse. rv 16:56 Patient has correct armband on for positive identification. Placed in gown. Bed in low rv position. Call light in reach. Side rails up X 1. Pulse ox on. NIBP on. 16:57 Patient maintains SpO2 saturation greater than 95% on room air. rv 17:30 Inserted saline lock: 22 gauge in right forearm, using aseptic technique. Blood rv collected. 18:11 Hip Left 2 View XRAY In Process Unspecified. EDMS 18:11 CXR XRAY In Process Unspecified. EDMS 18:11 Ribs Left XRAY In Process Unspecified. EDMS 19:26 No provider procedures requiring assistance completed. rv 19:26 IV discontinued, intact, bleeding controlled, No redness/swelling at site. Pressure rv dressing applied. Administered Medications: 17:22 Drug: [place] 10 mg-325 mg 1 tabs Route: PO; 19:25 Follow up: Response: Pain is decreased; RASS: Alert and Calm (0) rv Outcome: 19:05 Discharge ordered by . kdr 19:26 Discharged to home via wheelchair, with crutches, with family. rv 19:26 Condition: good 19:26 Discharge instructions given to patient, family, Instructed on discharge instructions, follow up and referral plans. medication usage, Demonstrated understanding of instructions, follow-up care, medications, Prescriptions given X 1. 19:27 Patient left the ED. rv Signatures: Dispatcher [employer] EDMS Vick Barakat MD MD [facility] Lissa Seth Tara, RN RN 2 Shasta Bobby Adilson Martinez, RN RN rv
--- NOTE | 2019-06-19 19:07 | EDPHYS ---
Physician Documentation [facility] Name: Kim Aldana Age: 58 yrs Sex: Female : 1960 Arrival Date: 06/19/2019 Time: 16:14 Bed 26 Private MD: ED Physician Vick Barakat HPI: 06/19 17:21 This 58 yrs old Female presents to ER via Ambulatory with complaints of Fall kdr Injury, Hip Pain. 17:21 Details of fall: The patient fell from an upright position, while standing. Onset: The kdr symptoms/episode began/occurred suddenly, this morning. Associated injuries: The patient sustained injury to the chest, left hip. Severity of symptoms: At their worst the symptoms were mild, moderate, just prior to arrival, in the emergency department the symptoms are unchanged. The patient has not experienced similar symptoms in the past. The patient has not recently seen a physician. The patient had fallen a few weeks ago on the same hip and the pain and swelling were resolving until tihis morning when she fell again on the same hip. Historical: - Allergies: 16:35 plastic tape; tw2 16:35 Phenergan; tw2 16:35 PENICILLINS; tw2 16:35 Neurontin; tw2 16:35 Morphine; tw2 16:35 Methadone; tw2 16:35 Dilaudid; tw2 16:35 Demerol; tw2 16:35 Compazine; tw2 16:35 Aspirin; tw2 - Home Meds: 16:35 calcium with viatmin D, 1 po daily [Active]; amitriptyline 75 mg Oral tab [Active]; tw2 Albuterol Inhl [Active]; acyclovir 400 mg Oral tab 2 tabs daily [Active]; alprazolam 2 mg Oral tab twice a day [Active]; cyclobenzaprine 10 mg Oral tab 4 times daily [Active]; Estrace 0.01 twice weekly Oral [Active]; gabapentin 300 mg Oral cap daily [Active]; Fish Oil 1,000 mg Oral cap daily [Active]; magnesium oxide 400 mg Oral cap daily [Active]; multivitamin Oral cap daily [Active]; potassium gluconate 595 mg (99 mg) Oral tab daily [Active]; Prilosec 20 mg Oral cpDR 2 times per day [Active]; metoprolol tartrate 25 mg Oral tab once daily [Active]; prednisone 2.5 mg Oral tab once daily [Active]; warfarin 4 mg Oral tab once daily [Active]; Sumatriptan Sub-Q [Active]; Restasis ophthalmic [Active]; Zofran (as hydrochloride) 4 mg Oral tab 2 times per day [Active]; Lyrica 100mg 2 po daily Oral [Active]; minocycline 100 mg Oral cap 2 times per day [Active]; levothyroxine 150 mcg tab once daily [Active]; biotin 5000 mcg Oral daily [Active]; - PMHx: 16:35 venous insufficiency; pulmonary edema; Tachycardia; osteomyelitis; menopause; lumbar tw2 radiculitis; hypersomnia; Lupus; Dyspepsia; dejenteritive joint disease; esophageal reflux; Chronic pain; chest pain; Back pain; Panic Attacks; arterial insuficiency; fatigue; cerebritis; Seizures; TIA; - PSHx: 16:35 heart valve replacement; colon removed; Appendectomy; lens implants; left hip tw2 replacement; right knee replacement; right hip replacement; left foot; - Immunization history:: Adult Immunizations. - Social history:: Smoking status: . - Immunization history: Last tetanus immunization:. - Ebola Screening: : Patient denies travel to an Ebola-affected area in the 21 days before illness onset. ROS: 17:21 Constitutional: Negative for fever, chills, and weight loss, Eyes: Negative for injury, kdr pain, redness, and discharge, Neck: Negative for injury, pain, and swelling, Cardiovascular: Negative for chest pain, palpitations, and edema, Respiratory: Negative for shortness of breath, cough, wheezing, and pleuritic chest pain, Abdomen/GI: Negative for abdominal pain, nausea, vomiting, diarrhea, and constipation, Back: Negative for injury and pain, : Negative for injury, bleeding, discharge, and swelling, Skin: Negative for injury, rash, and discoloration, Neuro: Negative for headache, weakness, numbness, tingling, and seizure activity. Psych: Negative for depression, anxiety, suicide ideation, homicidal ideation, and hallucinations, Allergy/Immunology: Negative for hives, rash, and allergies, Endocrine: Negative for neck swelling, polydipsia, polyuria, polyphagia, and marked weight changes, Hematologic/Lymphatic: Negative for swollen nodes, abnormal bleeding, and unusual bruising. 17:21 MS/extremity: Positive for injury or acute deformity, decreased range of motion, pain, swelling, tenderness, Negative for rash. Exam: 17:24 Constitutional: This is a well developed, well nourished patient who is awake, alert, kdr and in no acute distress. Head/Face: Normocephalic, atraumatic. Eyes: Pupils equal round and reactive to light, extra-ocular motions intact. Lids and lashes normal. Conjunctiva and sclera are non-icteric and not injected. Cornea within normal limits. Periorbital areas with no swelling, redness, or edema. Neck: Trachea midline, no thyromegaly or masses palpated, and no cervical lymphadenopathy. Supple, full range of motion without nuchal rigidity, or vertebral point tenderness. No Meningismus. Chest/axilla: Normal chest wall appearance and motion. Nontender with no deformity. No lesions are appreciated. Cardiovascular: Regular rate and rhythm with a normal S1 and S2. No gallops, murmurs, or rubs. Normal PMI, no JVD. No pulse deficits. Respiratory: Lungs have equal breath sounds bilaterally, clear to auscultation and percussion. No rales, rhonchi or wheezes noted. No increased work of breathing, no retractions or nasal flaring. Abdomen/GI: Soft, non-tender, with normal bowel sounds. No distension or tympany. No guarding or rebound. No evidence of tenderness throughout. Back: No spinal tenderness. No costovertebral tenderness. Full range of motion. Skin: Warm, dry with normal turgor. Normal color with no rashes, no lesions, and no evidence of cellulitis. MS/ Extremity: Pulses equal, no cyanosis. Neurovascular intact. Full, normal range of motion. The is a large swollen area on the left lateral hip that is warm and tense Neuro: Awake and alert, GCS 15, oriented to person, place, time, and situation. Cranial nerves II-XII grossly intact. Motor strength 5/5 in all extremities. Sensory grossly intact. Cerebellar exam normal. Normal gait. Psych: Awake, alert, with orientation to person, place and time. Behavior, mood, and affect are within normal limits. Vital Signs: 16:31 BP 108 / 65; Pulse 95; Resp 18; Temp 99.1(TE); Pulse Ox 100% on R/A; Weight 63.5 kg tw2 (R); Pain 10/10; 18:00 BP 100 / 60; Pulse 99; Resp 17; Pulse Ox 98% on R/A; rv 19:00 BP 104 / 51; Pulse 85; Resp 16; Pulse Ox 98% on R/A; rv 16:31 when i try to straighten my leg tw2 [place] Coma Score: 16:56 Eye Response: spontaneous(4). Verbal Response: oriented(5). Motor Response: obeys rv commands(6). Total: 15. Trauma Score (Adult): 16:56 Eye Response: spontaneous(1); Verbal Response: oriented(1); Motor Response: obeys rv commands(2); Systolic BP: > 89 mm Hg(4); Respiratory Rate: 10 to 29 per min(4); [place] Score: 15; Trauma Score: 12 MDM: 19:05 Patient medically screened. kdr 19:08 Data reviewed: vital signs, nurses notes, lab test result(s), radiologic studies. kdr Counseling: I had a detailed discussion with the patient and/or guardian regarding: the historical points, exam findings, and any diagnostic results supporting the discharge/admit diagnosis, lab results, radiology results, the need for outpatient follow up. 06/19 17:19 Order name: CBC with Diff; Complete Time: 18:17 kdr 06/19 17:19 Order name: PT-INR; Complete Time: 19:03 kdr 06/19 17:19 Order name: Hip Left 2 View XRAY; Complete Time: 19:03 kdr 06/19 17:19 Order name: Chem 7; Complete Time: 18:17 kdr 06/19 17:21 Order name: CXR XRAY; Complete Time: 19:03 kdr 06/19 17:21 Order name: Ribs Left XRAY; Complete Time: 19:03 kdr 06/19 17:24 Order name: Jose Guadalupe Wrap: Left hip; Complete Time: 18:28 kdr Administered Medications: 17:22 Drug: [place] 10 mg-325 mg 1 tabs Route: PO; 19:25 Follow up: Response: Pain is decreased; RASS: Alert and Calm (0) rv Disposition: 06/19/19 19:05 Discharged to Home. Impression: Pain in left hip - hematoma. - Condition is Stable. - Discharge Instructions: Hematoma, [id number], Musculoskeletal Pain, Hip Pain, Joint Pain, [id number]. - Prescriptions for Tylenol- Codeine #4 300-60 mg Oral Tablet - take 1 tablet by ORAL route every 6 hours As needed; 15 tablet. - Medication Reconciliation Form, Thank You Letter, Prescription Opioid Use form. - Follow up: Private Physician; When: 2 - 3 days; Reason: If symptoms return, Further diagnostic work-up, Recheck today's complaints, Continuance of care, Re-evaluation by your physician. - Problem is new. - Symptoms are unchanged. Signatures: Dispatcher [employer] EDMS Vick Barakat MD MD kdr Manda Fernandez RN RN tw2 Shasta Bobby Ronaldo RN RN rv Corrections: (The following items were deleted from the chart) 19:27 19:05 06/19/2019 19:05 Discharged to Home. Impression: Pain in left hip - hematoma. rv Condition is Stable. Forms are Medication Reconciliation Form, Thank You Letter, Antibiotic Education, Prescription Opioid Use. Follow up: Private Physician; When: 2 - 3 days; Reason: If symptoms return, Further diagnostic work-up, Recheck today's complaints, Continuance of care, Re-evaluation by your physician. Problem is new. Symptoms are unchanged. kdr
[2019-06-19 20:03] VITALS: TEMP 99.1
[2019-06-19 20:05] VITALS: O2SAT 98
[2019-06-19 20:06] VITALS: BP 104/51
== END 2019-06-19 19:27 | disposition home or self-care (01) ==
LOC: ER 16:11
DX: S70.02XA Contusion of left hip, initial encounter (principal); W01.0XXA Fall on same level from slipping, tripping and stumbling without subsequent striking against object, initial encounter; Y93.9 Activity, unspecified; Y92.9 Unspecified place or not applicable; M25.552 Pain in left hip; Z88.0 Allergy status to penicillin; Z88.6 Allergy status to analgesic agent; Z88.8 Allergy status to other drugs, medicaments and biological substances; Z86.73 Personal history of transient ischemic attack (TIA), and cerebral infarction without residual deficits; G89.29 Other chronic pain; R56.9 Unspecified convulsions; K21.9 Gastro-esophageal reflux disease without esophagitis
CPT/HCPCS: 36415; 71045; 80048; 85025; 85610

== ENCOUNTER 2019-08-05 12:30 | Emergency (ER) | payer OTHER ==
--- OUTSIDE RECORDS SUMMARY | 2019-08-05 12:32 | XMS REPORT ---
:1960 [facility] Address [address] [place] [address] [address] [place] [address] Care Team Providers Name Role Phone MELANIE ANTHONY Unavailable Unavailable Problems This patient has no known problems. Allergies, Adverse Reactions, Alerts This patient has no known allergies or adverse reactions. Medications This patient has no known medications. Results Test Description Test Time Test Comments Text Results Atomic Results Result Comments PROTHROMBIN TIME/INR 2019-01-17 06:03:00 Test Item Value Reference Range Comments PROTIME (BEAKER) (test phrh=241) 14.0 seconds 11.9-14.2 INR (BEAKER) (test oimm=413) 1.1 <=5.9 Effective 12/31/2018: PT Reference Range ChangeNew: 11.9-14.2 Previous: 11.7- 14.7RECOMMENDED COUMADIN/WARFARIN INR THERAPY RANGESSTANDARD DOSE: 2.0-3.0 Includes: PROPHYLAXIS for venous thrombosis, systemic embolization; TREATMENT for venous thrombosis and/or pulmonary embolus.HIGH RISK: Target INR is2.5-3.5 for patients wiht mechanical heart valves.While on warfarin.PROTHROMBIN TIME/ [id number] 06:24:00 Test Item Value Reference Range Comments PROTIME (BEAKER) (test orsm=128) 13.2 seconds 11.9-14.2 INR (BEAKER) (test jbzu=848) 1.1 <=5.9 Effective 12/31/2018: PT Reference Range ChangeNew: 11.9-14.2 Previous: 11.7- 14.7RECOMMENDED COUMADIN/WARFARIN INR THERAPY RANGESSTANDARD DOSE: 2.0-3.0 Includes: PROPHYLAXIS for venous thrombosis, systemic embolization; TREATMENT for venous thrombosis and/or pulmonary embolus.HIGH RISK: Target INR is2.5-3.5 for patients wiht mechanical heart valves.While on warfarin.CBC W/PLT COUNT &amp ; AUTO [id number] 06:20:00 Test Item Value Reference Range Comments WHITE BLOOD CELL COUNT (BEAKER) (test kwna=177) 7.0 K/ L 3.5-10.5 RED BLOOD CELL COUNT (BEAKER) (test prwk=629) 3.72 M/ L 3.93-5.22 HEMOGLOBIN (BEAKER) (test mchy=568) 10.4 GM/DL 11.2-15.7 HEMATOCRIT (BEAKER) (test nzzb=642) 33.0 % 34.1-44.9 MEAN CORPUSCULAR VOLUME (BEAKER) (test arrz=999) 88.7 fL 79.4-94.8 MEAN CORPUSCULAR HEMOGLOBIN (BEAKER) (test 28.0 pg 25.6-32.2 txbq=769) MEAN CORPUSCULAR HEMOGLOBIN CONC (BEAKER) (test 31.5 GM/DL 32.2-35.5 jkxu=333) RED CELL DISTRIBUTION WIDTH (BEAKER) (test 15.8 % 11.7-14.4 zxzi=597) PLATELET COUNT (BEAKER) (test xwod=061) 388 K/CU MM 150-450 MEAN PLATELET VOLUME (BEAKER) (test djnb=498) 10.5 fL 9.4-12.3 NUCLEATED RED BLOOD CELLS (BEAKER) (test 0 /100 WBC 0-0 qdxp=231) NEUTROPHILS RELATIVE PERCENT (BEAKER) (test 71 % zafq=946) LYMPHOCYTES RELATIVE PERCENT (BEAKER) (test 22 % qptb=744) MONOCYTES RELATIVE PERCENT (BEAKER) (test 6 % hfva=350) EOSINOPHILS RELATIVE PERCENT (BEAKER) (test 0 % lkwn=683) BASOPHILS RELATIVE PERCENT (BEAKER) (test 0 % ycqb=954) NEUTROPHILS ABSOLUTE COUNT (BEAKER) (test 4.93 K/ L 1.56-6.13 rogd=629) LYMPHOCYTES ABSOLUTE COUNT (BEAKER) (test 1.55 K/ L 1.18-3.74 dgoj=907) MONOCYTES ABSOLUTE COUNT (BEAKER) (test 0.42 K/ L 0.24-0.36 xvgq=245) EOSINOPHILS ABSOLUTE COUNT (BEAKER) (test 0.00 K/ L 0.04-0.36 hunc=873) BASOPHILS ABSOLUTE COUNT (BEAKER) (test 0.01 K/ L 0.01-0.08 xgwu=966) IMMATURE GRANULOCYTES-RELATIVE PERCENT (BEAKER) 1 % 0-1 (test erne=2664) PROTHROMBIN TIME/[id number] 06:35:00 Test Item Value Reference Range Comments PROTIME (BEAKER) (test kvyg=302) 14.7 seconds 11.9-14.2 INR (BEAKER) (test qduu=701) 1.2 <=5.9 Effective 12/31/2018: PT Reference Range ChangeNew: 11.9-14.2 Previous: 11.7- 14.7RECOMMENDED COUMADIN/WARFARIN INR THERAPY RANGESSTANDARD DOSE: 2.0-3.0 Includes: PROPHYLAXIS for venous thrombosis, systemic embolization; TREATMENT for venous thrombosis and/or pulmonary embolus.HIGH RISK: Target INR is2.5-3.5 for patients wiht mechanical heart valves.OCCULT BLOOD, [id number] 23:23:00 Test Item Value Reference Range Comments FECAL OCCULT BLOOD (BEAKER) (test sdgz=003) Negative Negative PROTHROMBIN TIME/[id number] 07:00:00 Test Item Value Reference Range Comments PROTIME (BEAKER) (test vwqv=487) 13.9 seconds 11.9-14.2 INR (BEAKER) (test xhrg=198) 1.1 <=5.9 Effective 12/31/2018: PT Reference Range ChangeNew: 11.9-14.2 Previous: 11.7- 14.7RECOMMENDED COUMADIN/WARFARIN INR THERAPY RANGESSTANDARD DOSE: 2.0-3.0 Includes: PROPHYLAXIS for venous thrombosis, systemic embolization; TREATMENT for venous thrombosis and/or pulmonary embolus.HIGH RISK: Target INR is2.5-3.5 for patients wiht mechanical heart valves.CBC W/PLT COUNT & AUTO [id number] 06:52:00 Test Item Value Reference Range Comments WHITE BLOOD CELL COUNT (BEAKER) (test ufww=730) 7.5 K/ L 3.5-10.5 RED BLOOD CELL COUNT (BEAKER) (test xdsx=986) 3.86 M/ L 3.93-5.22 HEMOGLOBIN (BEAKER) (test irkj=873) 10.7 GM/DL 11.2-15.7 HEMATOCRIT (BEAKER) (test xjgw=964) 33.6 % 34.1-44.9 MEAN CORPUSCULAR VOLUME (BEAKER) (test aktp=334) 87.0 fL 79.4-94.8 MEAN CORPUSCULAR HEMOGLOBIN (BEAKER) (test 27.7 pg 25.6-32.2 sjoa=961) MEAN CORPUSCULAR HEMOGLOBIN CONC (BEAKER) (test 31.8 GM/DL 32.2-35.5 aloa=909) RED CELL DISTRIBUTION WIDTH (BEAKER) (test 14.8 % 11.7-14.4 mpcy=053) PLATELET COUNT (BEAKER) (test pvso=890) 383 K/CU MM 150-450 MEAN PLATELET VOLUME (BEAKER) (test xyvy=303) 9.8 fL 9.4-12.3 NUCLEATED RED BLOOD CELLS (BEAKER) (test 0 /100 WBC 0-0 xkdd=934) NEUTROPHILS RELATIVE PERCENT (BEAKER) (test 74 % qqyo=350) LYMPHOCYTES RELATIVE PERCENT (BEAKER) (test 19 % exyl=931) MONOCYTES RELATIVE PERCENT (BEAKER) (test 5 % fumw=115) EOSINOPHILS RELATIVE PERCENT (BEAKER) (test 0 % ekak=663) BASOPHILS RELATIVE PERCENT (BEAKER) (test 0 % otgw=331) NEUTROPHILS ABSOLUTE COUNT (BEAKER) (test 5.58 K/ L 1.56-6.13 roup=481) LYMPHOCYTES ABSOLUTE COUNT (BEAKER) (test 1.39 K/ L 1.18-3.74 ktcr=658) MONOCYTES ABSOLUTE COUNT (BEAKER) (test 0.36 K/ L 0.24-0.36 saap=862) EOSINOPHILS ABSOLUTE COUNT (BEAKER) (test 0.00 K/ L 0.04-0.36 nmjy=561) BASOPHILS ABSOLUTE COUNT (BEAKER) (test 0.02 K/ L 0.01-0.08 zxnq=608) IMMATURE GRANULOCYTES-RELATIVE PERCENT (BEAKER) 2 % 0-1 (test dvbu=9346) MYOCARD IMAGING, MULTI, PHARM, [id number] 16:05:00FINAL REPORT PROCEDURE: MYOCARDIAL PERFUSION SPECT IMAGING (Rest/Stress)CPT CODE : 31814 INDICATION: Elevated troponin CARDIOVASCULAR PROFILE:CAD History: NoneSymptoms: [...] MDReport Verified Date/Time: 01/12/2019 16:05:30 Reading Location: [address] Reading Room [id number] 08:57:00 Test Item Value Reference Range Comments THYROID STIMULATING HORMONE (BEAKER) (test 1.50 uIU/mL 0.35-4.94 hnkb=455) [id number] 08:56:00 Test Item Value Reference Range Comments T4 TOTAL (BEAKER) (test esfb=681) 7.9 ug/dL 4.9-11.7 PROTHROMBIN TIME/[id number] 03:12:00 Test Item Value Reference Range Comments PROTIME (BEAKER) (test bcxa=164) 14.0 seconds 11.9-14.2 INR (BEAKER) (test lqnx=171) 1.1 <=5.9 Effective 12/31/2018: PT Reference Range ChangeNew: 11.9-14.2 Previous: 11.7- 14.7RECOMMENDED COUMADIN/WARFARIN INR THERAPY RANGESSTANDARD DOSE: 2.0-3.0 Includes: PROPHYLAXIS for venous thrombosis, systemic embolization; TREATMENT for venous thrombosis and/or pulmonary embolus.HIGH RISK: Target INR is2.5-3.5 for patients wiht mechanical heart valves.CBC (HEMOGRAM ONLY)2019-01-12 03:04:00 Test Item Value Reference Range Comments WHITE BLOOD CELL COUNT (BEAKER) (test xcof=183) 7.2 K/ L 3.5-10.5 RED BLOOD CELL COUNT (BEAKER) (test eqxt=969) 3.46 M/ L 3.93-5.22 HEMOGLOBIN (BEAKER) (test kqmd=634) 9.7 GM/DL 11.2-15.7 HEMATOCRIT (BEAKER) (test zwmv=571) 30.0 % 34.1-44.9 MEAN CORPUSCULAR VOLUME (BEAKER) (test yudw=126) 86.7 fL 79.4-94.8 MEAN CORPUSCULAR HEMOGLOBIN (BEAKER) (test 28.0 pg 25.6-32.2 urwe=954) MEAN CORPUSCULAR HEMOGLOBIN CONC (BEAKER) (test 32.3 GM/DL 32.2-35.5 xkku=340) RED CELL DISTRIBUTION WIDTH (BEAKER) (test 14.6 % 11.7-14.4 xcvy=738) PLATELET COUNT (BEAKER) (test zulh=854) 345 K/CU MM 150-450 MEAN PLATELET VOLUME (BEAKER) (test orwa=989) 9.8 fL 9.4-12.3 NUCLEATED RED BLOOD CELLS (BEAKER) (test 0 /100 WBC 0-0 jsjw=721) CBC (HEMOGRAM ONLY)2019-01-11 15:42:00 Test Item Value Reference Range Comments WHITE BLOOD CELL COUNT (BEAKER) (test tybe=449) 7.5 K/ L 3.5-10.5 RED BLOOD CELL COUNT (BEAKER) (test krgx=592) 3.65 M/ L 3.93-5.22 HEMOGLOBIN (BEAKER) (test ewlw=900) 10.1 GM/DL 11.2-15.7 HEMATOCRIT (BEAKER) (test kbst=228) 32.4 % 34.1-44.9 MEAN CORPUSCULAR VOLUME (BEAKER) (test bmah=145) 88.8 fL 79.4-94.8 MEAN CORPUSCULAR HEMOGLOBIN (BEAKER) (test 27.7 pg 25.6-32.2 punf=444) MEAN CORPUSCULAR HEMOGLOBIN CONC (BEAKER) (test 31.2 GM/DL 32.2-35.5 hpig=037) RED CELL DISTRIBUTION WIDTH (BEAKER) (test 14.6 % 11.7-14.4 jpsv=161) PLATELET COUNT (BEAKER) (test fska=919) 353 K/CU MM 150-450 MEAN PLATELET VOLUME (BEAKER) (test tbrl=355) 9.7 fL 9.4-12.3 NUCLEATED RED BLOOD CELLS (BEAKER) (test 0 /100 WBC 0-0 bykl=586) BASIC METABOLIC [id number] 14:05:00 Test Item Value Reference Range Comments SODIUM (BEAKER) (test 137 meq/L 136-145 xqxb=076) POTASSIUM (BEAKER) (test 4.1 meq/L 3.5-5.1 djwo=898) CHLORIDE (BEAKER) (test 103 meq/L 98-107 xffc=797) CO2 (BEAKER) (test 28 meq/L 22-29 xhws=736) BLOOD UREA NITROGEN 5 mg/dL 7-21 (BEAKER) (test fzjt=945) CREATININE (BEAKER) (test 0.68 mg/dL 0.57-1.25 qrvz=796) GLUCOSE RANDOM (BEAKER) 97 mg/dL 70-105 (test opms=734) CALCIUM (BEAKER) (test 7.9 mg/dL 8.4-10.2 bxnu=244) EGFR (BEAKER) (test 89 mL/min/1.73 sq m ESTIMATED GFR IS NOT rrxe=7307) ACCURATE CREATININE CLEARANCE IN PREDICTING GLOMERULAR FILTRATION RATE. ESTIMATED GFR IS NOT APPLICABLE FOR DIALYSIS PATIENTS. TROPONIN [id number] 09:07:00 Test Item Value Reference Range Comments TROPONIN I (BEAKER) (test rqjg=725) 0.06 ng/mL 0.00-0.03 Troponin I (TnI) levels [...] acidosis, acute neurological disease, and persistent tachyarrhythmia.TROPONIN [id number] 06:51:00 Test Item Value Reference Range Comments TROPONIN I (BEAKER) (test toyv=089) 0.05 ng/mL 0.00-0.03 Troponin I (TnI) levels [...] acute neurological disease, and persistent tachyarrhythmia.BASIC METABOLIC [id number] 06:51:00 Test Item Value Reference Range Comments SODIUM (BEAKER) (test 139 meq/L 136-145 fyzb=941) POTASSIUM (BEAKER) (test 3.0 meq/L 3.5-5.1 cnuw=236) CHLORIDE (BEAKER) (test 102 meq/L 98-107 ntej=527) CO2 (BEAKER) (test 29 meq/L 22-29 mhuh=079) BLOOD UREA NITROGEN 6 mg/dL 7-21 (BEAKER) (test gnem=685) CREATININE (BEAKER) (test 0.71 mg/dL 0.57-1.25 corg=221) GLUCOSE RANDOM (BEAKER) 118 mg/dL 70-105 (test gzog=864) CALCIUM (BEAKER) (test 7.8 mg/dL 8.4-10.2 ywzb=692) EGFR (BEAKER) (test 84 mL/min/1.73 sq m ESTIMATED GFR IS NOT rxzh=2256) ACCURATE CREATININE CLEARANCE IN PREDICTING GLOMERULAR FILTRATION RATE. ESTIMATED GFR IS NOT APPLICABLE FOR DIALYSIS PATIENTS. [id number] 06:44:00 Test Item Value Reference Range Comments MAGNESIUM (BEAKER) (test aiau=224) 1.8 mg/dL 1.6-2.6 PT/[id number] 04:26:00 Test Item Value Reference Range Comments PROTIME (BEAKER) (test ajoj=522) 14.9 seconds 11.9-14.2 INR (BEAKER) (test pbyw=939) 1.2 <=5.9 PARTIAL THROMBOPLASTIN TIME (BEAKER) (test 90.9 seconds 22.5-36.0 iafb=701) Effective 12/31/2018: PT Reference Range ChangeNew: 11.9-14.2 Previous: 11.7- 14.7RECOMMENDED COUMADIN/WARFARIN INR THERAPY RANGESSTANDARD DOSE: 2.0-3.0 Includes: PROPHYLAXIS for venous thrombosis, systemic embolization; TREATMENT for venous thrombosis and/or pulmonary embolus.HIGH RISK: Target INR is2.5-3.5 for patients wiht mechanical heart valves.Per heparin sliding scalePer heparin sliding scaleHEMOGLOBIN AND [id number] 04:15:00 Test Item Value Reference Range Comments HEMOGLOBIN (BEAKER) (test nuxe=230) 9.5 GM/DL 11.2-15.7 HEMATOCRIT (BEAKER) (test zhis=297) 30.2 % 34.1-44.9 TROPONIN [id number] 22:28:00 Test Item Value Reference Range Comments TROPONIN I (BEAKER) (test cbua=671) 0.07 ng/mL 0.00-0.03 Troponin I (TnI) levels [...] failure, acidosis, acute neurological disease, and persistent tachyarrhythmia.PT/[id number] 22:15:00 Test Item Value Reference Range Comments PROTIME (BEAKER) (test ljzg=872) 15.0 seconds 11.9-14.2 INR (BEAKER) (test fhug=615) 1.2 <=5.9 PARTIAL THROMBOPLASTIN TIME (BEAKER) (test 38.3 seconds 22.5-36.0 yfdw=606) Effective 12/31/2018: PT Reference Range ChangeNew: 11.9-14.2 Previous: 11.7- 14.7RECOMMENDED COUMADIN/WARFARIN INR THERAPY RANGESSTANDARD DOSE: 2.0-3.0 Includes: PROPHYLAXIS for venous thrombosis, systemic embolization; TREATMENT for venous thrombosis and/or pulmonary embolus.HIGH RISK: Target INR is2.5-3.5 for patients wiht mechanical heart valves.Per heparin sliding scalePer heparin sliding scaleRAD, ABDOMEN/KUB, 1 VIEW [id number] 18:44:00Reason for exam:-> vomitingFINAL REPORT Abdomen dated [...] MDReport Verified Date/Time: 01/10/2019 18:44:41 Reading Location: [address] Body Reading Room [id number] 14:44:00 Test Item Value Reference Range Comments MAGNESIUM (BEAKER) (test rrtx=827) 1.6 mg/dL 1.6-2.6 BASIC METABOLIC [id number] 14:44:00 Test Item Value Reference Range Comments SODIUM (BEAKER) (test 140 meq/L 136-145 lqmc=932) POTASSIUM (BEAKER) (test 2.9 meq/L 3.5-5.1 fbfj=667) CHLORIDE (BEAKER) (test 105 meq/L 98-107 sdze=603) CO2 (BEAKER) (test 28 meq/L 22-29 mxan=944) BLOOD UREA NITROGEN 7 mg/dL 7-21 (BEAKER) (test tpqh=645) CREATININE (BEAKER) (test 0.69 mg/dL 0.57-1.25 hyjl=171) GLUCOSE RANDOM (BEAKER) 84 mg/dL 70-105 (test ytvx=895) CALCIUM (BEAKER) (test 8.0 mg/dL 8.4-10.2 gqjj=844) EGFR (BEAKER) (test 87 mL/min/1.73 sq m ESTIMATED GFR IS NOT uuvc=4295) ACCURATE CREATININE CLEARANCE IN PREDICTING GLOMERULAR FILTRATION RATE. ESTIMATED GFR IS NOT APPLICABLE FOR DIALYSIS PATIENTS. TROPONIN [id number] 14:44:00 Test Item Value Reference Range Comments TROPONIN I (BEAKER) (test slnv=590) 0.08 ng/mL 0.00-0.03 Troponin I (TnI) levels [...] and persistent tachyarrhythmia.CBC W/PLT COUNT & AUTO [id number] 14:34:00 Test Item Value Reference Range Comments WHITE BLOOD CELL COUNT (BEAKER) (test rcwo=096) 6.6 K/ L 3.5-10.5 RED BLOOD CELL COUNT (BEAKER) (test cskp=788) 3.38 M/ L 3.93-5.22 HEMOGLOBIN (BEAKER) (test rqip=331) 9.4 GM/DL 11.2-15.7 HEMATOCRIT (BEAKER) (test glvp=118) 30.2 % 34.1-44.9 MEAN CORPUSCULAR VOLUME (BEAKER) (test bbvw=655) 89.3 fL 79.4-94.8 MEAN CORPUSCULAR HEMOGLOBIN (BEAKER) (test 27.8 pg 25.6-32.2 ahun=788) MEAN CORPUSCULAR HEMOGLOBIN CONC (BEAKER) (test 31.1 GM/DL 32.2-35.5 iccf=423) RED CELL DISTRIBUTION WIDTH (BEAKER) (test 15.0 % 11.7-14.4 vpyu=187) PLATELET COUNT (BEAKER) (test exga=353) 288 K/CU MM 150-450 MEAN PLATELET VOLUME (BEAKER) (test bdcv=415) 10.5 fL 9.4-12.3 NUCLEATED RED BLOOD CELLS (BEAKER) (test 0 /100 WBC 0-0 mput=929) NEUTROPHILS RELATIVE PERCENT (BEAKER) (test 68 % ijxr=653) LYMPHOCYTES RELATIVE PERCENT (BEAKER) (test 24 % jswy=740) MONOCYTES RELATIVE PERCENT (BEAKER) (test 5 % ydjn=083) EOSINOPHILS RELATIVE PERCENT (BEAKER) (test 0 % lbcy=491) BASOPHILS RELATIVE PERCENT (BEAKER) (test 0 % tomj=570) NEUTROPHILS ABSOLUTE COUNT (BEAKER) (test 4.42 K/ L 1.56-6.13 pnnz=442) LYMPHOCYTES ABSOLUTE COUNT (BEAKER) (test 1.59 K/ L 1.18-3.74 stoq=430) MONOCYTES ABSOLUTE COUNT (BEAKER) (test 0.35 K/ L 0.24-0.36 ebif=668) EOSINOPHILS ABSOLUTE COUNT (BEAKER) (test 0.00 K/ L 0.04-0.36 qfqt=836) BASOPHILS ABSOLUTE COUNT (BEAKER) (test 0.02 K/ L 0.01-0.08 poqx=913) IMMATURE GRANULOCYTES-RELATIVE PERCENT (BEAKER) 3 % 0-1 (test usoh=6539) [id number] 13:25:00 Test Item Value Reference Range Comments AMYLASE (BEAKER) (test bvbo=322) 29 U/L 25-125 [id number] 13:25:00 Test Item Value Reference Range Comments LIPASE (BEAKER) (test asoh=994) 16 U/L 8-78 [id number] 13:24:00 Test Item Value Reference Range Comments PARTIAL THROMBOPLASTIN TIME (BEAKER) (test 41.1 seconds 22.5-36.0 slmh=427) 6 hours after starting heparin infusion and as indicated per sliding scaleHEMOGLOBIN AND [id number] 13:10:00 Test Item Value Reference Range Comments HEMOGLOBIN (BEAKER) (test ahfg=429) 9.3 GM/DL 11.2-15.7 HEMATOCRIT (BEAKER) (test wswh=078) 30.0 % 34.1-44.9 U/S, ABDOMINAL, [id number] 12:16:00Abdomen limited area? Add comment if clarification [...] Verified Date/Time: 01/10/2019 12:16:23 Reading Location: [address] Consult Reading Room PT/[id number] 20:52:00 Test Item Value Reference Range Comments PROTIME (BEAKER) (test vqnu=116) 18.3 seconds 11.9-14.2 INR (BEAKER) (test afww=178) 1.6 <=5.9 PARTIAL THROMBOPLASTIN TIME (BEAKER) (test 56.3 seconds 22.5-36.0 vomw=917) Effective 12/31/2018: PT Reference Range ChangeNew: 11.9-14.2 Previous: 11.7- 14.7RECOMMENDED COUMADIN/WARFARIN INR THERAPY RANGESSTANDARD DOSE: 2.0-3.0 Includes: PROPHYLAXIS for venous thrombosis, systemic embolization; TREATMENT for venous thrombosis and/or pulmonary embolus.HIGH RISK: Target INR is2.5-3.5 for patients wiht mechanical heart valves.HEMOGLOBIN AND [id number] 16 :23:00 Test Item Value Reference Range Comments HEMOGLOBIN (BEAKER) (test gsif=778) 9.4 GM/DL 11.2-15.7 HEMATOCRIT (BEAKER) (test reyx=853) 29.9 % 34.1-44.9 PT/[id number] 07:42:00 Test Item Value Reference Range Comments PROTIME (BEAKER) (test zcqx=524) 19.1 seconds 11.9-14.2 INR (BEAKER) (test jjqe=077) 1.7 <=5.9 PARTIAL THROMBOPLASTIN TIME (BEAKER) (test 111.0 seconds 22.5-36.0 hcxy=095) Effective 12/31/2018: PT Reference Range ChangeNew: 11.9-14.2 Previous: 11.7- 14.7RECOMMENDED COUMADIN/WARFARIN INR THERAPY RANGESSTANDARD DOSE: 2.0-3.0 Includes: PROPHYLAXIS for venous thrombosis, systemic embolization; TREATMENT for venous thrombosis and/or pulmonary embolus.HIGH RISK: Target INR is2.5-3.5 for patients wiht mechanical heart valves.[id number] 03:41:00 Test Item Value Reference Range Comments MAGNESIUM (BEAKER) (test ydzd=825) 1.7 mg/dL 1.6-2.6 BASIC METABOLIC [id number] 03:41:00 Test Item Value Reference Range Comments SODIUM (BEAKER) (test 140 meq/L 136-145 sesm=004) POTASSIUM (BEAKER) (test 4.2 meq/L 3.5-5.1 tkag=270) CHLORIDE (BEAKER) (test 106 meq/L 98-107 drsh=736) CO2 (BEAKER) (test 29 meq/L 22-29 pcbn=685) BLOOD UREA NITROGEN 7 mg/dL 7-21 (BEAKER) (test diug=338) CREATININE (BEAKER) (test 0.68 mg/dL 0.57-1.25 zepk=725) GLUCOSE RANDOM (BEAKER) 114 mg/dL 70-105 (test yqgt=139) CALCIUM (BEAKER) (test 7.9 mg/dL 8.4-10.2 prab=868) EGFR (BEAKER) (test 89 mL/min/1.73 sq m ESTIMATED GFR IS NOT msrb=1647) ACCURATE CREATININE CLEARANCE IN PREDICTING GLOMERULAR FILTRATION RATE. ESTIMATED GFR IS NOT APPLICABLE FOR DIALYSIS PATIENTS. PROTHROMBIN TIME/[id number] 03:35:00 Test Item Value Reference Range Comments PROTIME (BEAKER) (test nzbb=726) 19.6 seconds 11.9-14.2 INR (BEAKER) (test vqph=026) 1.8 <=5.9 Effective 12/31/2018: PT Reference Range ChangeNew: 11.9-14.2 Previous: 11.7- 14.7RECOMMENDED COUMADIN/WARFARIN INR THERAPY RANGESSTANDARD DOSE: 2.0-3.0 Includes: PROPHYLAXIS for venous thrombosis, systemic embolization; TREATMENT for venous thrombosis and/or pulmonary embolus.HIGH RISK: Target INR is2.5-3.5 for patients wiht mechanical heart valves.HEMOGLOBIN AND [id number] 03 :21:00 Test Item Value Reference Range Comments HEMOGLOBIN (BEAKER) (test wvic=836) 8.8 GM/DL 11.2-15.7 HEMATOCRIT (BEAKER) (test axbr=249) 27.9 % 34.1-44.9 PT/[id number] 23:57:00 Test Item Value Reference Range Comments PROTIME (BEAKER) (test xqgl=775) 19.1 seconds 11.9-14.2 INR (BEAKER) (test olmv=574) 1.7 <=5.9 PARTIAL THROMBOPLASTIN TIME (BEAKER) (test 84.3 seconds 22.5-36.0 qnsl=904) Effective 12/31/2018: PT Reference Range ChangeNew: 11.9-14.2 Previous: 11.7- 14.7RECOMMENDED COUMADIN/WARFARIN INR THERAPY RANGESSTANDARD DOSE: 2.0-3.0 Includes: PROPHYLAXIS for venous thrombosis, systemic embolization; TREATMENT for venous thrombosis and/or pulmonary embolus.HIGH RISK: Target INR is2.5-3.5 for patients wiht mechanical heart valves.[id number] 22:20:00 Test Item Value Reference Range Comments PROTIME (BEAKER) (test gane=333) 19.3 seconds 11.9-14.2 INR (BEAKER) (test uwnl=562) 1.7 <=5.9 PARTIAL THROMBOPLASTIN TIME (BEAKER) (test 111.7 seconds 22.5-36.0 vkql=932) Effective 12/31/2018: PT Reference Range ChangeNew: 11.9-14.2 Previous: 11.7- 14.7RECOMMENDED COUMADIN/WARFARIN INR THERAPY RANGESSTANDARD DOSE: 2.0-3.0 Includes: PROPHYLAXIS for venous thrombosis, systemic embolization; TREATMENT for venous thrombosis and/or pulmonary embolus.HIGH RISK: Target INR is2.5-3.5 for patients wiht mechanical heart valves.Patient is on agartrobanPatient is on agartrobanHEMOGLOBIN AND [id number] 22:08:00 Test Item Value Reference Range Comments HEMOGLOBIN (BEAKER) (test khgl=453) 9.6 GM/DL 11.2-15.7 HEMATOCRIT (BEAKER) (test mfss=931) 30.5 % 34.1-44.9 HEMOGLOBIN AND [id number] 16:25:00 Test Item Value Reference Range Comments HEMOGLOBIN (BEAKER) (test qgwr=781) 8.7 GM/DL 11.2-15.7 HEMATOCRIT (BEAKER) (test mhfg=705) 27.5 % 34.1-44.9 CBC (HEMOGRAM ONLY)2019-01-08 16:25:00 Test Item Value Reference Range Comments WHITE BLOOD CELL COUNT (BEAKER) (test gdxj=707) 5.7 K/ L 3.5-10.5 RED BLOOD CELL COUNT (BEAKER) (test fhpw=182) 3.13 M/ L 3.93-5.22 HEMOGLOBIN (BEAKER) (test rcnn=891) 8.7 GM/DL 11.2-15.7 HEMATOCRIT (BEAKER) (test hhfp=706) 27.5 % 34.1-44.9 MEAN CORPUSCULAR VOLUME (BEAKER) (test dzhm=935) 87.9 fL 79.4-94.8 MEAN CORPUSCULAR HEMOGLOBIN (BEAKER) (test 27.8 pg 25.6-32.2 rvpy=868) MEAN CORPUSCULAR HEMOGLOBIN CONC (BEAKER) (test 31.6 GM/DL 32.2-35.5 syfd=827) RED CELL DISTRIBUTION WIDTH (BEAKER) (test 15.6 % 11.7-14.4 pppc=242) PLATELET COUNT (BEAKER) (test sdld=387) 226 K/CU MM 150-450 MEAN PLATELET VOLUME (BEAKER) (test xual=925) 10.8 fL 9.4-12.3 NUCLEATED RED BLOOD CELLS (BEAKER) (test 0 /100 WBC 0-0 rggq=421) [id number] 15:07:00 Test Item Value Reference Range Comments PARTIAL THROMBOPLASTIN TIME (BEAKER) (test 59.8 seconds 22.5-36.0 yiss=718) PROTHROMBIN [id number] 14:32:00 Test Item Value Reference Range Comments PROTIME (BEAKER) (test rqyf=598) 19.7 seconds 11.9-14.2 INR (BEAKER) (test djvo=807) 1.8 <=5.9 Effective 12/31/2018: PT Reference Range ChangeNew: 11.9-14.2 Previous: 11.7- 14.7RECOMMENDED COUMADIN/WARFARIN INR THERAPY RANGESSTANDARD DOSE: 2.0-3.0 Includes: PROPHYLAXIS for venous thrombosis, systemic embolization; TREATMENT for venous thrombosis and/or pulmonary embolus.HIGH RISK: Target INR is2.5-3.5 for patients wiht mechanical heart valves.B-TYPE NATRIURETIC FACTOR (BNP)2019-01 12:44:00 Test Item Value Reference Range Comments B-TYPE NATRIURETIC PEPTIDE (BEAKER) (test 526 pg/mL 0-100 cxzk=475) [id number] 12:34:00 Test Item Value Reference Range Comments POTASSIUM (BEAKER) (test wswk=965) 3.9 meq/L 3.5-5.1 [id number] 12:34:00 Test Item Value Reference Range Comments MAGNESIUM (BEAKER) (test lfwe=039) 2.0 mg/dL 1.6-2.6 [id number] 11:33:00 Test Item Value Reference Range Comments PROCALCITONIN (BEAKER) (test sszr=6488) 0.05 ng/mL <0.05 SEPSIS RISK (ng/mL)Low: 0.05-0.50Intermediate: 0.51-2.00High: & gt;=2.01LACTIC ACID, [id number] 10:31:00 Test Item Value Reference Range Comments LACTATE BLOOD VENOUS (2) (BEAKER) (test 0.7 mmol/L 0.5-2.2 nabi=3011) HEMOGLOBIN AND [id number] 10:10:00 Test Item Value Reference Range Comments HEMOGLOBIN (BEAKER) (test diuf=606) 8.3 GM/DL 11.2-15.7 HEMATOCRIT (BEAKER) (test hlck=847) 26.2 % 34.1-44.9 BASIC METABOLIC [id number] 08:27:00 Test Item Value Reference Range Comments SODIUM (BEAKER) (test 139 meq/L 136-145 nudu=718) POTASSIUM (BEAKER) (test 3.2 meq/L 3.5-5.1 pvbg=297) CHLORIDE (BEAKER) (test 105 meq/L 98-107 atca=443) CO2 (BEAKER) (test 28 meq/L 22-29 cpua=894) BLOOD UREA NITROGEN 8 mg/dL 7-21 (BEAKER) (test kvxl=018) CREATININE (BEAKER) (test 0.72 mg/dL 0.57-1.25 gavl=648) GLUCOSE RANDOM (BEAKER) 91 mg/dL 70-105 (test zqst=030) CALCIUM (BEAKER) (test 7.6 mg/dL 8.4-10.2 twni=604) EGFR (BEAKER) (test 83 mL/min/1.73 sq m ESTIMATED GFR IS NOT hilw=0279) ACCURATE CREATININE CLEARANCE IN PREDICTING GLOMERULAR FILTRATION RATE. ESTIMATED GFR IS NOT APPLICABLE FOR DIALYSIS PATIENTS. RAD, CHEST, 1 VIEW, NON [id number] 08:17:00Reason for exam:->pulmonary edemaShould this be performed [...] [place] Verified Date/Time: 2018 08:17:31 Reading Location: [facility] Radiology Reading Room [id number] -[id number] 08:12:00 Test Item Value Reference Range Comments MAGNESIUM (BEAKER) (test gzky=975) 2.0 mg/dL 1.6-2.6 [id number] 07:14:00 Test Item Value Reference Range Comments FERRITIN (BEAKER) (test gsvr=485) 346 ng/mL 5-275 IRON, TIBC, % SAT. (WITHOUT FERRITIN)2019-01-08 06:51:00 Test Item Value Reference Range Comments IRON (BEAKER) (test sdyf=929) 27.0 ug/dL 40.0-160.0 TOTAL IRON BINDING CAPACITY (BEAKER) (test 196 ug/dL 250-450 egdk=030) IRON % SATURATION (2) (BEAKER) (test yics=7609) 14 % 20-55 HEMOGLOBIN AND [id number] 06:25:00 Test Item Value Reference Range Comments HEMOGLOBIN (BEAKER) (test wchb=832) 7.8 GM/DL 11.2-15.7 HEMATOCRIT (BEAKER) (test bffi=158) 24.4 % 34.1-44.9 THROMBOELASTOGRAPH (TEG)2019-01-08 01:42:00 Test Item Value Reference Range Comments TEG ACTIVATED CLOTTING TIME (BEAKER) (test 8.4 minutes 4.0-7.0 qmcm=0654) TEG FIBRINOGEN ACTIVITY (BEAKER) (test 71.7 degrees 61.0-73.0 uiax=3960) TEG PLT. AGGREGATION (BEAKER) (test uljv=3499) 68.2 MM 55.0-65.0 TEG FIBRINOLYSIS (BEAKER) (test wcpm=8312) 0.0 % 0.0-5.0 TGH ACTIVATED CLOTTING TIME (BEAKER) (test 8.9 minutes 4.0-7.0 wupr=6078) TGH FIBRINOGEN ACTIVITY (BEAKER) (test 70.1 degrees 61.0-73.0 fzho=7048) TGH PLT. AGGREGATION (BEAKER) (test xybm=7312) 65.3 MM 55.0-65.0 TGH FIBRINOLYSIS (BEAKER) (test kyrp=0811) 0.0 % 0.0-5.0 RAD, CHEST, 1 VIEW, NON [id number] 23:31:00Reason for exam:-> DyspneaShould this be performed [...] Verified Date/Time : 01/07/2019 23:31:03 Reading Location: [address] Reading Room COMPREHENSIVE METABOLIC [id number] 22:56:00 Test Item Value Reference Range Comments TOTAL PROTEIN (BEAKER) 5.8 gm/dL 6.0-8.3 (test nzeg=453) ALBUMIN (BEAKER) (test 3.0 g/dL 3.5-5.0 wdud=6846) ALKALINE PHOSPHATASE 56 U/L 40-150 (BEAKER) (test elyh=574) BILIRUBIN TOTAL (BEAKER) 0.7 mg/dL 0.2-1.2 (test borp=617) SODIUM (BEAKER) (test 139 meq/L 136-145 spny=628) POTASSIUM (BEAKER) (test 3.4 meq/L 3.5-5.1 ovlp=659) CHLORIDE (BEAKER) (test 109 meq/L 98-107 yrya=582) CO2 (BEAKER) (test 23 meq/L 22-29 fksr=075) BLOOD UREA NITROGEN 9 mg/dL 7-21 (BEAKER) (test rxyj=369) CREATININE (BEAKER) (test 0.75 mg/dL 0.57-1.25 nsfw=990) GLUCOSE RANDOM (BEAKER) 102 mg/dL 70-105 (test qgsm=475) CALCIUM (BEAKER) (test 7.1 mg/dL 8.4-10.2 rjyt=757) AST (SGOT) (BEAKER) (test 25 U/L 5-34 diry=247) ALT (SGPT) (BEAKER) (test 11 U/L 6-55 biba=165) EGFR (BEAKER) (test 79 mL/min/1.73 sq m ESTIMATED GFR IS NOT zjbx=5725) ACCURATE CREATININE CLEARANCE IN PREDICTING GLOMERULAR FILTRATION RATE. ESTIMATED GFR IS NOT APPLICABLE FOR DIALYSIS PATIENTS. [id number] 22:51:00 Test Item Value Reference Range Comments MAGNESIUM (BEAKER) (test kary=295) 1.3 mg/dL 1.6-2.6 [id number] 22:45:00 Test Item Value Reference Range Comments FIBRINOGEN LEVEL (BEAKER) (test caqy=934) 509 mg/dl 225-434 PROTHROMBIN TIME/[id number] 22:09:00 Test Item Value Reference Range Comments PROTIME (BEAKER) (test tpbc=897) 20.5 seconds 11.9-14.2 INR (BEAKER) (test zdcu=798) 1.9 <=5.9 Effective 12/31/2018: PT Reference Range ChangeNew: 11.9-14.2 Previous: 11.7- 14.7RECOMMENDED COUMADIN/WARFARIN INR THERAPY RANGESSTANDARD DOSE: 2.0-3.0 Includes: PROPHYLAXIS for venous thrombosis, systemic embolization; TREATMENT for venous thrombosis and/or pulmonary embolus.HIGH RISK: Target INR is2.5-3.5 for patients wiht mechanical heart valves.CBC W/PLT COUNT & AUTO [id number] 22:05:00 Test Item Value Reference Range Comments WHITE BLOOD CELL COUNT (BEAKER) (test avbb=973) 4.2 K/ L 3.5-10.5 RED BLOOD CELL COUNT (BEAKER) (test gczb=769) 2.41 M/ L 3.93-5.22 HEMOGLOBIN (BEAKER) (test dbgi=125) 6.7 GM/DL 11.2-15.7 HEMATOCRIT (BEAKER) (test bygw=408) 21.4 % 34.1-44.9 MEAN CORPUSCULAR VOLUME (BEAKER) (test bawu=169) 88.8 fL 79.4-94.8 MEAN CORPUSCULAR HEMOGLOBIN (BEAKER) (test 27.8 pg 25.6-32.2 onrg=520) MEAN CORPUSCULAR HEMOGLOBIN CONC (BEAKER) (test 31.3 GM/DL 32.2-35.5 hpfk=659) RED CELL DISTRIBUTION WIDTH (BEAKER) (test 14.2 % 11.7-14.4 yfle=273) PLATELET COUNT (BEAKER) (test iuqe=865) 208 K/CU MM 150-450 MEAN PLATELET VOLUME (BEAKER) (test sdwp=183) 10.2 fL 9.4-12.3 NUCLEATED RED BLOOD CELLS (BEAKER) (test 0 /100 WBC 0-0 kcjh=168) NEUTROPHILS RELATIVE PERCENT (BEAKER) (test 73 % taxg=373) LYMPHOCYTES RELATIVE PERCENT (BEAKER) (test 19 % phou=104) MONOCYTES RELATIVE PERCENT (BEAKER) (test 8 % rvzq=956) EOSINOPHILS RELATIVE PERCENT (BEAKER) (test 0 % pzsw=498) BASOPHILS RELATIVE PERCENT (BEAKER) (test 0 % usta=714) NEUTROPHILS ABSOLUTE COUNT (BEAKER) (test 3.08 K/ L 1.56-6.13 tmww=783) LYMPHOCYTES ABSOLUTE COUNT (BEAKER) (test 0.79 K/ L 1.18-3.74 ipci=660) MONOCYTES ABSOLUTE COUNT (BEAKER) (test 0.32 K/ L 0.24-0.36 urtb=542) EOSINOPHILS ABSOLUTE COUNT (BEAKER) (test 0.00 K/ L 0.04-0.36 gged=358) BASOPHILS ABSOLUTE COUNT (BEAKER) (test 0.00 K/ L 0.01-0.08 fmkf=802) IMMATURE GRANULOCYTES-RELATIVE PERCENT (BEAKER) 1 % 0-1 (test rnqs=7079)
[2019-08-05] MEDS ORDERED: FENTANYL CITR 100 MCG/2 ML ONE ×2 (13:36→14:10)
[2019-08-05 13:39] LABS: Absolute Lymphocytes (CBC) 0.6 K/uL (0.7-4.9); Basophils % 0.1 % (0-1.3); Hematocrit 30.5 % (36.0-45.0); Lymphocytes % 10.1 % (15.3-44.8); MPV 8.3 fL (7.6-11.3); RBC Red Blood Cell Count 3.72 M/uL (3.86-4.86)
[2019-08-05 13:49] LABS: Protime INR 4.42
[2019-08-05 13:51] LABS: Potassium 3.6 mmol/L (3.5-5.1)
[2019-08-05] MEDS ORDERED: HYDROMORPHONE HCL 0.5 MG/0.5 ML INJ ONE (14:58)
--- NOTE | 2019-08-05 16:06 | RAD REPORT ---
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 No fracture of the [place] bone seen. No fracture of th e left hemipelvis. Implant is unchanged from the prior examination. 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 Degenerative changes are present at the knee joint incompletely visualiz ed. No large joint effusion at the knee. Soft tissues anterior to the patella and distal femur are pr ominent. Site of patient soft tissue injury is not detailed. No pathologic bone process. No air or f oreign body in the soft tissues. IMPRESSION: No femur fracture or acute finding seen. Degenerative changes are present near the knee joint. No foreign body in the soft tissues.
--- NOTE | 2019-08-05 16:14 | RAD REPORT ---
EXAM DESCRIPTION: US - Extremity Nonvascular Limited - 08/05/2019 4:05 pm CLINICAL HISTORY: Large hematoma to left thigh COMPARISON: Extremity Nonvascular Limited dated 04/06/2017 FINDINGS: Limited sonographic evaluation of the left thigh was performed. There are two 4-5 centimet er oval heterogeneous masses in the left thigh at the area of concern. The deeper mass is more solid in appearance with the more superficial mass showing mixed solid and cystic component. Given the fall history, both are believed to be hematomas. The more superficial hematoma has shown quicker breakdow n of the blood products. IMPRESSION: Two 4-5 centimeter sized hematomas in the left thigh.
--- NOTE | 2019-08-05 16:20 | ER ---
Nurse's Notes [facility] Name: Kim Aldana Age: 59 yrs Sex: Female : 1960 Arrival Date: 08/05/2019 Time: 12:33 Bed 25 Private MD: Diagnosis: Hematoma to Left Thigh Presentation: 08/05 12:45 Presenting complaint: Patient states: fell on top of coffee table a few days ago, left iw thigh has been hurting and now is swollen twice the size as normal . feels like muscles are stretching. Transition of care: patient was not received from another setting of care. Onset of symptoms was August 02, 2019. Risk Assessment: Do you want to hurt yourself or someone else? Patient reports no desire to harm self or others. Initial Sepsis Screen: Does the patient meet any 2 criteria? No. Patient's initial sepsis screen is negative. Does the patient have a suspected source of infection? No. Patient's initial sepsis screen is negative. Care prior to arrival: None. 12:45 Method Of Arrival: Wheelchair iw 12:45 Acuity: CABRERA 4 iw 13:23 Acuity: CABRERA 3 iw Historical: - Allergies: 12:48 Aspirin; iw 12:48 Compazine; iw 12:48 Methadone; iw 12:48 Morphine; iw 12:48 Neurontin; iw 12:48 PENICILLINS; iw 12:48 Phenergan; iw 12:48 plastic tape; iw 12:48 Suboxone; iw - PMHx: 12:48 arterial insuficiency; Back pain; cerebritis; chest pain; Chronic pain; dejenteritive iw joint disease; Dyspepsia; esophageal reflux; fatigue; hypersomnia; lumbar radiculitis; Lupus; menopause; osteomyelitis; Panic Attacks; pulmonary edema; Seizures; Tachycardia; TIA; venous insufficiency; - PSHx: 12:48 heart valve replacement; colon removed; Appendectomy; lens implants; left hip iw replacement; right knee replacement; right hip replacement; left foot; - Immunization history:: Adult Immunizations not up to date. - Social history:: Smoking status: Patient uses tobacco products, smokes one-half pack cigarettes per day. - Ebola Screening: : Patient negative for fever greater than or equal to 101.5 degrees Fahrenheit, and additional compatible Ebola Virus Disease symptoms Patient denies exposure to infectious person Patient denies travel to an Ebola-affected area in the 21 days before illness onset No symptoms or risks identified at this time. Screenin:36 Abuse screen: Denies threats or abuse. Denies injuries from another. Nutritional iw screening: No deficits noted. Tuberculosis screening: No symptoms or risk factors identified. Fall Risk IV access (20 points). Assessment: 13:36 General: Appears in no apparent distress. Behavior is calm, cooperative. Pain: iw Complains of pain in left leg and lateral aspect of left thigh. Neuro: Level of Consciousness is awake, alert, obeys commands, Oriented to person, place, time, situation, Moves all extremities. Full function. Cardiovascular: Patient's skin is warm and dry. Respiratory: Respiratory effort is even, unlabored, Respiratory pattern is regular. Derm: Skin is pink, warm \T\ dry. Musculoskeletal: Range of motion: limited in left hip and left knee Swelling present in lateral aspect of left thigh. 15:00 Reassessment: Patient appears in no apparent distress at this time. Patient and/or rv family updated on plan of care and expected duration. Pain level reassessed. Patient is alert, oriented x 3, equal unlabored respirations, skin warm/dry/pink. Vital Signs: 12:48 BP 93 / 46; Pulse 88; Resp 16; Temp 97.3; Pulse Ox 100% on R/A; Weight 68.95 kg; Height iw 5 ft. 6 in. (167.64 cm); Pain 10/10; 13:14 BP 112 / 72; lt1 14:00 BP 115 / 75; Pulse 82; Resp 18; Pulse Ox 100% on R/A; rv 14:30 BP 129 / 69; Pulse 79; Resp 17; Pulse Ox 100% on R/A; rv 15:00 BP 126 / 68; Pulse 80; Resp 18; Pulse Ox 100% on R/A; rv 15:15 BP 115 / 74; Pulse 82; Resp 18; Pulse Ox 100% on R/A; rv 16:25 BP 121 / 76; Pulse 81; Resp 18; Pulse Ox 100% on R/A; rv 12:48 Body Mass Index 24.53 (68.95 kg, 167.64 cm) iw ED Course: 12:33 Patient arrived in ED. as 12:46 Triage completed. iw 12:48 Arm band placed on. iw 12:59 Sharath Walker FNP-C is [facility]. la1 12:59 Ajay Mukherjee MD is Attending Physician. la1 13:12 Selina Bond, RN is Primary Nurse. iw 13:30 Initial lab(s) drawn, by me, sent to lab. Inserted saline lock: 22 gauge in left iw antecubital area, using aseptic technique. Blood collected. 13:54 Femur Left XRAY In Process Unspecified. EDMS 15:26 Patient has correct armband on for positive identification. Pulse ox on. NIBP on. rv 16:06 US Extrmty Nonvasular Limited In Process Unspecified. EDMS 16:25 No provider procedures requiring assistance completed. IV discontinued, intact, rv bleeding controlled, No redness/swelling at site. Pressure dressing applied. Administered Medications: 13:22 CANCELLED (Duplicate Order): fentaNYL (PF) 50 mcg IM once; RASS on ADMIN: Combtv4, Very la1 Agttd3, Agttd2, Rstlss1, AlertClm0, Drwsy-1, Lt Sdtn-2, Mod Sdtn-3, Dp Sdtn-4, UnArsble-5 13:35 Drug: fentaNYL (PF) 25 mcg Route: IVP; Site: left antecubital; iw 16:21 Follow up: Response: No adverse reaction; RASS: Alert and Calm (0) rv 15:00 Drug: fentaNYL (PF) 25 mcg {Note: rass 0.} Route: IVP; Site: left antecubital; rv 16:24 Follow up: Response: No adverse reaction; RASS: Alert and Calm (0) rv 15:52 Drug: Dilaudid 0.5 mg {Note: rass 0.} Route: IVP; Site: left antecubital; rv 16:23 Follow up: Response: RASS: Alert and Calm (0) rv 16:20 Drug: fentaNYL (PF) 25 mcg {Note: rass 0.} Route: IVP; Site: left antecubital; rv 16:24 Follow up: Response: Medication administered at discharge. rv Outcome: 16:19 Discharge ordered by . la1 16:25 Discharged to home via wheelchair, with family. rv 16:25 Condition: good 16:25 Discharge instructions given to patient, Instructed on discharge instructions, follow up and referral plans. Demonstrated understanding of instructions, follow-up care. 16:26 Patient left the ED. rv Signatures: Dispatcher [employer] Lissa Frederick Irene RN Sharath Ng, CONCAVER-C CONCAVER-Cla1 Adilson Martinez RN RN rv Tran, Concepcion 1
--- NOTE | 2019-08-05 16:21 | EDPHYS ---
Physician Documentation [facility] Name: Kim Aldana Age: 59 yrs Sex: Female : 1960 Arrival Date: 08/05/2019 Time: 12:33 Bed 25 Private MD: ED Physician Ajay Mukherjee HPI: 08/05 13:21 This 59 yrs old Female presents to ER via Wheelchair with complaints of Hip la1 Pain. 13:21 The patient or guardian reports an injury, pain, swelling. that occurred at home, la1 sustained from a fall, from a standing position, There is no obvious deformity. The complaints affect the lateral aspect of left thigh. Onset: The symptoms/episode began/occurred 3 day(s) ago. Historical: - Allergies: 12:48 Aspirin; iw 12:48 Compazine; iw 12:48 Methadone; iw 12:48 Morphine; iw 12:48 Neurontin; iw 12:48 PENICILLINS; iw 12:48 Phenergan; iw 12:48 plastic tape; iw 12:48 Suboxone; iw - PMHx: 12:48 arterial insuficiency; Back pain; cerebritis; chest pain; Chronic pain; dejenteritive iw joint disease; Dyspepsia; esophageal reflux; fatigue; hypersomnia; lumbar radiculitis; Lupus; menopause; osteomyelitis; Panic Attacks; pulmonary edema; Seizures; Tachycardia; TIA; venous insufficiency; - PSHx: 12:48 heart valve replacement; colon removed; Appendectomy; lens implants; left hip iw replacement; right knee replacement; right hip replacement; left foot; - Immunization history:: Adult Immunizations not up to date. - Social history:: Smoking status: Patient uses tobacco products, smokes one-half pack cigarettes per day. - Ebola Screening: : Patient negative for fever greater than or equal to 101.5 degrees Fahrenheit, and additional compatible Ebola Virus Disease symptoms Patient denies exposure to infectious person Patient denies travel to an Ebola-affected area in the 21 days before illness onset No symptoms or risks identified at this time. ROS: 12:48 Constitutional: Negative for fever, chills, and weight loss, Eyes: Negative for injury, la1 pain, redness, and discharge, ENT: Negative for injury, pain, and discharge, Neck: Negative for injury, pain, and swelling, Cardiovascular: Negative for chest pain, palpitations, and edema, Respiratory: Negative for shortness of breath, cough, wheezing, and pleuritic chest pain, Abdomen/GI: Negative for abdominal pain, nausea, vomiting, diarrhea, and constipation, Back: Negative for injury and pain, Skin: Negative for injury, rash, and discoloration, Neuro: Negative for headache, weakness, numbness, tingling, and seizure. 12:48 MS/extremity: Positive for pain, swelling, tenderness, of the lateral aspect of left thigh. Exam: 16:14 Constitutional: This is a well developed, well nourished patient who is awake, alert, la1 and in no acute distress. Head/Face: Normocephalic, atraumatic. Eyes: . Periorbital areas with no swelling, redness, or edema. ENT: Mucous membranes moist. Neck: No Meningismus. Chest/axilla: Normal chest wall appearance and motion. Nontender with no deformity. No lesions are appreciated. Cardiovascular: Regular rate and rhythm with a normal S1 and S2. No gallops, murmurs, or rubs. Normal PMI, no JVD. No pulse deficits. Respiratory: Lungs have equal breath sounds bilaterally, clear to auscultation No rales, rhonchi or wheezes noted. No increased work of breathing, no retractions or nasal flaring. Abdomen/GI: Soft, non-tender, with normal bowel sounds. No distension or tympany. No guarding or rebound. No evidence of tenderness throughout. Back: No spinal tenderness. No costovertebral tenderness. Full range of motion. 16:14 Musculoskeletal/extremity: Extremities: noted in the lateral aspect of left thigh: pain, swelling, tenderness, There is no evidence of deformity, ecchymosis, erythema, puncture, rash, ROM: intact in all extremities, Pulses: noted to be 3+ in the right dorsalis pedis artery and left dorsalis pedis artery, Perfusion: the patient is normally perfused throughout, pink, warm, noted to have brisk capillary refill, Perfusion: the extremity is normally perfused throughout, pink, warm, with brisk capillary refill, the right leg and left leg Sensation intact. Compartment Syndrome exam of affected extremity: the lateral aspect of left thigh no numbness, no tingling, no sensation deficit, no palor, no weak pulses. 16:14 Skin: Appearance: normal except for affected area, Color: normal in color, Temperature: normal temperature. Vital Signs: 12:48 BP 93 / 46; Pulse 88; Resp 16; Temp 97.3; Pulse Ox 100% on R/A; Weight 68.95 kg; Height iw 5 ft. 6 in. (167.64 cm); Pain 10/10; 13:14 BP 112 / 72; lt1 14:00 BP 115 / 75; Pulse 82; Resp 18; Pulse Ox 100% on R/A; rv 14:30 BP 129 / 69; Pulse 79; Resp 17; Pulse Ox 100% on R/A; rv 15:00 BP 126 / 68; Pulse 80; Resp 18; Pulse Ox 100% on R/A; rv 15:15 BP 115 / 74; Pulse 82; Resp 18; Pulse Ox 100% on R/A; rv 16:25 BP 121 / 76; Pulse 81; Resp 18; Pulse Ox 100% on R/A; rv 12:48 Body Mass Index 24.53 (68.95 kg, 167.64 cm) iw MDM: 13:05 Patient medically screened. la1 16:17 Data reviewed: vital signs, nurses notes, radiologic studies, and as a result, I will la1 discharge patient. Data interpreted: Pulse oximetry: on room air is 100 %. Interpretation: normal. Counseling: I had a detailed discussion with the patient and/or guardian regarding: the historical points, exam findings, and any diagnostic results supporting the discharge/admit diagnosis, the presence of at least one elevated blood pressure reading (>120/80) during this emergency department visit, lab results, radiology results, the need for outpatient follow up, a family practitioner, to return to the emergency department if symptoms worsen or persist or if there are any questions or concerns that arise at home. ED course: No signs to indicate compartment syndrome aside from pain. skin pink warm and dry in extremity, no changes in sensation, compartments in thigh are soft aside from hematoma. 08/05 13:23 Order name: Basic Metabolic Panel; Complete Time: 14:24 08/05 13:23 Order name: CBC with Diff; Complete Time: 14:24 08/05 13:20 Order name: Femur Left XRAY; Complete Time: 16:16 08/05 13:23 Order name: PT-INR; Complete Time: 14:24 la08/05 14:25 Order name: Extrmthan Nonvasular Limited; Complete Time: 16:16 la08/05 13:23 Order name: IV Saline Lock; Complete Time: 13:38 la08/05 13:23 Order name: Labs collected and sent; Complete Time: 13:38 la08/05 16:14 Order name: Jose Guadalupe Wrap; Complete Time: 16:20 la1 Administered Medications: 13:22 CANCELLED (Duplicate Order): fentaNYL (PF) 50 mcg IM once; RASS on ADMIN: Combtv4, Very la1 Agttd3, Agttd2, Rstlss1, AlertClm0, Drwsy-1, Lt Sdtn-2, Mod Sdtn-3, Dp Sdtn-4, UnArsble-5 13:35 Drug: fentaNYL (PF) 25 mcg Route: IVP; Site: left antecubital; iw 16:21 Follow up: Response: No adverse reaction; RASS: Alert and Calm (0) rv 15:00 Drug: fentaNYL (PF) 25 mcg {Note: rass 0.} Route: IVP; Site: left antecubital; rv 16:24 Follow up: Response: No adverse reaction; RASS: Alert and Calm (0) rv 15:52 Drug: Dilaudid 0.5 mg {Note: rass 0.} Route: IVP; Site: left antecubital; rv 16:23 Follow up: Response: RASS: Alert and Calm (0) rv 16:20 Drug: fentaNYL (PF) 25 mcg {Note: rass 0.} Route: IVP; Site: left antecubital; rv 16:24 Follow up: Response: Medication administered at discharge. rv Disposition: 17:43 Co-signature as Attending Physician, Ajay Mukherjee MD. ma2 Disposition: 08/05/19 16:19 Discharged to Home. Impression: Hematoma to Left Thigh. - Condition is Stable. - Discharge Instructions: Hematoma, Hematoma, Wtqv-mg-Jqvt, Musculoskeletal Pain. - Medication Reconciliation Form, Thank You Letter form. - Follow up: Private Physician; When: 2 - 3 days; Reason: Recheck today's complaints, Re-evaluation by your physician. Follow up: Emergency Department; When: As needed; Reason: Worsening of condition. - Problem is new. - Symptoms are unchanged. - Notes: Take Iburpofen and tlyenol at home, keep compression on hematoma, may take tramadol you have at home as well, return to ED with new or worsening symptoms, otherwise follow up with your primary care doctor. Signatures: Dispatcher [employer] EDMS Selina Bond RN RN iw Sharath Walker, SLIP BRIDGE OPERATOR-C SLIP BRIDGE OPERATOR-Cla1 Ajay Mukherjee MD MD pa2 Adilson Martinez RN RN rv Corrections: (The following items were deleted from the chart) 13:22 13:20 fentaNYL (PF) 50 mcg IM once; RASS on ADMIN: Combtv4, Very Agttd3, Agttd2, la1 Rstlss1, AlertClm0, Drwsy-1, Lt Sdtn-2, Mod Sdtn-3, Dp Sdtn-4, UnArsble-5 ordered. la1 16:26 16:19 08/05/2019 16:19 Discharged to Home. Impression: Hematoma to Left Thigh. rv Condition is Stable. Forms are Medication Reconciliation Form, Thank You Letter, Antibiotic Education, Prescription Opioid Use. Follow up: Private Physician; When: 2 - 3 days; Reason: Recheck today's complaints, Re-evaluation by your physician. Follow up: Emergency Department; When: As needed; Reason: Worsening of condition. Problem is new. Symptoms are unchanged. la1
[2019-08-05 16:55] VITALS: TEMP 97.3; O2SAT 100
[2019-08-05 17:02] VITALS: BP 121/76
== END 2019-08-05 16:26 | disposition home or self-care (01) ==
LOC: ER 12:30
DX: S70.12XA Contusion of left thigh, initial encounter (principal); W19.XXXA Unspecified fall, initial encounter; Y93.9 Activity, unspecified; Y92.009 Unspecified place in unspecified non-institutional (private) residence as the place of occurrence of the external cause; Z95.2 Presence of prosthetic heart valve; F17.210 Nicotine dependence, cigarettes, uncomplicated; Z88.0 Allergy status to penicillin; Z88.5 Allergy status to narcotic agent; Z88.6 Allergy status to analgesic agent; Z88.8 Allergy status to other drugs, medicaments and biological substances; Z91.048 Other nonmedicinal substance allergy status
CPT/HCPCS: 85025; 80048; 36415; 85610; 73552; 76882; 96375; 96374; 99284; J3010 ×2; J1170

== ENCOUNTER 2019-08-06 16:43 | Emergency (ER) | payer OTHER ==
--- OUTSIDE RECORDS SUMMARY | 2019-08-06 16:46 | XMS REPORT ---
:1960 [facility] Address [address] [place] [address] [address] [place] [address] Care Team Providers Name Role Phone MELANIE ANTHONY Unavailable Unavailable Problems This patient has no known problems. Allergies, Adverse Reactions, Alerts This patient has no known allergies or adverse reactions. Medications This patient has no known medications. Results Test Description Test Time Test Comments Text Results Atomic Results Result Comments PROTHROMBIN TIME/INR 2019-01-17 06:03:00 Test Item Value Reference Range Comments PROTIME (BEAKER) (test kkdk=486) 14.0 seconds 11.9-14.2 INR (BEAKER) (test lsmj=682) 1.1 <=5.9 Effective 12/31/2018: PT Reference Range ChangeNew: 11.9-14.2 Previous: 11.7- 14.7RECOMMENDED COUMADIN/WARFARIN INR THERAPY RANGESSTANDARD DOSE: 2.0-3.0 Includes: PROPHYLAXIS for venous thrombosis, systemic embolization; TREATMENT for venous thrombosis and/or pulmonary embolus.HIGH RISK: Target INR is2.5-3.5 for patients wiht mechanical heart valves.While on warfarin.PROTHROMBIN TIME/ [id number] 06:24:00 Test Item Value Reference Range Comments PROTIME (BEAKER) (test guuy=562) 13.2 seconds 11.9-14.2 INR (BEAKER) (test wlgb=836) 1.1 <=5.9 Effective 12/31/2018: PT Reference Range ChangeNew: 11.9-14.2 Previous: 11.7- 14.7RECOMMENDED COUMADIN/WARFARIN INR THERAPY RANGESSTANDARD DOSE: 2.0-3.0 Includes: PROPHYLAXIS for venous thrombosis, systemic embolization; TREATMENT for venous thrombosis and/or pulmonary embolus.HIGH RISK: Target INR is2.5-3.5 for patients wiht mechanical heart valves.While on warfarin.CBC W/PLT COUNT &amp ; AUTO [id number] 06:20:00 Test Item Value Reference Range Comments WHITE BLOOD CELL COUNT (BEAKER) (test zqxi=209) 7.0 K/ L 3.5-10.5 RED BLOOD CELL COUNT (BEAKER) (test qjaj=152) 3.72 M/ L 3.93-5.22 HEMOGLOBIN (BEAKER) (test bnoa=515) 10.4 GM/DL 11.2-15.7 HEMATOCRIT (BEAKER) (test oeol=900) 33.0 % 34.1-44.9 MEAN CORPUSCULAR VOLUME (BEAKER) (test spwp=519) 88.7 fL 79.4-94.8 MEAN CORPUSCULAR HEMOGLOBIN (BEAKER) (test 28.0 pg 25.6-32.2 xcpm=995) MEAN CORPUSCULAR HEMOGLOBIN CONC (BEAKER) (test 31.5 GM/DL 32.2-35.5 nqbi=014) RED CELL DISTRIBUTION WIDTH (BEAKER) (test 15.8 % 11.7-14.4 mfbk=025) PLATELET COUNT (BEAKER) (test exuu=734) 388 K/CU MM 150-450 MEAN PLATELET VOLUME (BEAKER) (test jnks=842) 10.5 fL 9.4-12.3 NUCLEATED RED BLOOD CELLS (BEAKER) (test 0 /100 WBC 0-0 kzwu=152) NEUTROPHILS RELATIVE PERCENT (BEAKER) (test 71 % btxm=274) LYMPHOCYTES RELATIVE PERCENT (BEAKER) (test 22 % wnhk=406) MONOCYTES RELATIVE PERCENT (BEAKER) (test 6 % ysip=316) EOSINOPHILS RELATIVE PERCENT (BEAKER) (test 0 % szyf=161) BASOPHILS RELATIVE PERCENT (BEAKER) (test 0 % guoj=126) NEUTROPHILS ABSOLUTE COUNT (BEAKER) (test 4.93 K/ L 1.56-6.13 jjei=122) LYMPHOCYTES ABSOLUTE COUNT (BEAKER) (test 1.55 K/ L 1.18-3.74 ssvk=841) MONOCYTES ABSOLUTE COUNT (BEAKER) (test 0.42 K/ L 0.24-0.36 hwog=358) EOSINOPHILS ABSOLUTE COUNT (BEAKER) (test 0.00 K/ L 0.04-0.36 yxkz=364) BASOPHILS ABSOLUTE COUNT (BEAKER) (test 0.01 K/ L 0.01-0.08 xsdt=147) IMMATURE GRANULOCYTES-RELATIVE PERCENT (BEAKER) 1 % 0-1 (test mmil=6741) PROTHROMBIN TIME/[id number] 06:35:00 Test Item Value Reference Range Comments PROTIME (BEAKER) (test kstw=025) 14.7 seconds 11.9-14.2 INR (BEAKER) (test auuk=937) 1.2 <=5.9 Effective 12/31/2018: PT Reference Range ChangeNew: 11.9-14.2 Previous: 11.7- 14.7RECOMMENDED COUMADIN/WARFARIN INR THERAPY RANGESSTANDARD DOSE: 2.0-3.0 Includes: PROPHYLAXIS for venous thrombosis, systemic embolization; TREATMENT for venous thrombosis and/or pulmonary embolus.HIGH RISK: Target INR is2.5-3.5 for patients wiht mechanical heart valves.OCCULT BLOOD, [id number] 23:23:00 Test Item Value Reference Range Comments FECAL OCCULT BLOOD (BEAKER) (test eepk=751) Negative Negative PROTHROMBIN TIME/[id number] 07:00:00 Test Item Value Reference Range Comments PROTIME (BEAKER) (test gqin=949) 13.9 seconds 11.9-14.2 INR (BEAKER) (test sjvk=384) 1.1 <=5.9 Effective 12/31/2018: PT Reference Range ChangeNew: 11.9-14.2 Previous: 11.7- 14.7RECOMMENDED COUMADIN/WARFARIN INR THERAPY RANGESSTANDARD DOSE: 2.0-3.0 Includes: PROPHYLAXIS for venous thrombosis, systemic embolization; TREATMENT for venous thrombosis and/or pulmonary embolus.HIGH RISK: Target INR is2.5-3.5 for patients wiht mechanical heart valves.CBC W/PLT COUNT & AUTO [id number] 06:52:00 Test Item Value Reference Range Comments WHITE BLOOD CELL COUNT (BEAKER) (test tpiv=675) 7.5 K/ L 3.5-10.5 RED BLOOD CELL COUNT (BEAKER) (test tcha=979) 3.86 M/ L 3.93-5.22 HEMOGLOBIN (BEAKER) (test dxkx=176) 10.7 GM/DL 11.2-15.7 HEMATOCRIT (BEAKER) (test qftk=781) 33.6 % 34.1-44.9 MEAN CORPUSCULAR VOLUME (BEAKER) (test awsf=483) 87.0 fL 79.4-94.8 MEAN CORPUSCULAR HEMOGLOBIN (BEAKER) (test 27.7 pg 25.6-32.2 jnlx=085) MEAN CORPUSCULAR HEMOGLOBIN CONC (BEAKER) (test 31.8 GM/DL 32.2-35.5 jail=530) RED CELL DISTRIBUTION WIDTH (BEAKER) (test 14.8 % 11.7-14.4 mtaj=405) PLATELET COUNT (BEAKER) (test qbun=711) 383 K/CU MM 150-450 MEAN PLATELET VOLUME (BEAKER) (test ztoy=676) 9.8 fL 9.4-12.3 NUCLEATED RED BLOOD CELLS (BEAKER) (test 0 /100 WBC 0-0 foqo=949) NEUTROPHILS RELATIVE PERCENT (BEAKER) (test 74 % kvyf=257) LYMPHOCYTES RELATIVE PERCENT (BEAKER) (test 19 % rutb=651) MONOCYTES RELATIVE PERCENT (BEAKER) (test 5 % qdoi=354) EOSINOPHILS RELATIVE PERCENT (BEAKER) (test 0 % jxqk=546) BASOPHILS RELATIVE PERCENT (BEAKER) (test 0 % uoxo=634) NEUTROPHILS ABSOLUTE COUNT (BEAKER) (test 5.58 K/ L 1.56-6.13 nzps=673) LYMPHOCYTES ABSOLUTE COUNT (BEAKER) (test 1.39 K/ L 1.18-3.74 lpiy=015) MONOCYTES ABSOLUTE COUNT (BEAKER) (test 0.36 K/ L 0.24-0.36 yvlh=122) EOSINOPHILS ABSOLUTE COUNT (BEAKER) (test 0.00 K/ L 0.04-0.36 meqe=993) BASOPHILS ABSOLUTE COUNT (BEAKER) (test 0.02 K/ L 0.01-0.08 oowr=217) IMMATURE GRANULOCYTES-RELATIVE PERCENT (BEAKER) 2 % 0-1 (test hyue=6825) MYOCARD IMAGING, MULTI, PHARM, [id number] 16:05:00FINAL REPORT PROCEDURE: MYOCARDIAL PERFUSION SPECT IMAGING (Rest/Stress)CPT CODE : [id number] INDICATION: Elevated troponin CARDIOVASCULAR PROFILE:CAD History: NoneSymptoms: [...] MDReport Verified Date/Time: 01/12/2019 16:05:30 Reading Location: [address] Reading Room [id number] 08:57:00 Test Item Value Reference Range Comments THYROID STIMULATING HORMONE (BEAKER) (test 1.50 uIU/mL 0.35-4.94 zsvi=981) [id number] 08:56:00 Test Item Value Reference Range Comments T4 TOTAL (BEAKER) (test hzai=665) 7.9 ug/dL 4.9-11.7 PROTHROMBIN TIME/[id number] 03:12:00 Test Item Value Reference Range Comments PROTIME (BEAKER) (test cdcm=797) 14.0 seconds 11.9-14.2 INR (BEAKER) (test ulsf=972) 1.1 <=5.9 Effective 12/31/2018: PT Reference Range ChangeNew: 11.9-14.2 Previous: 11.7- 14.7RECOMMENDED COUMADIN/WARFARIN INR THERAPY RANGESSTANDARD DOSE: 2.0-3.0 Includes: PROPHYLAXIS for venous thrombosis, systemic embolization; TREATMENT for venous thrombosis and/or pulmonary embolus.HIGH RISK: Target INR is2.5-3.5 for patients wiht mechanical heart valves.CBC (HEMOGRAM ONLY)2019-01-12 03:04:00 Test Item Value Reference Range Comments WHITE BLOOD CELL COUNT (BEAKER) (test iexg=097) 7.2 K/ L 3.5-10.5 RED BLOOD CELL COUNT (BEAKER) (test mkgu=568) 3.46 M/ L 3.93-5.22 HEMOGLOBIN (BEAKER) (test jgjn=509) 9.7 GM/DL 11.2-15.7 HEMATOCRIT (BEAKER) (test usdg=929) 30.0 % 34.1-44.9 MEAN CORPUSCULAR VOLUME (BEAKER) (test pclu=913) 86.7 fL 79.4-94.8 MEAN CORPUSCULAR HEMOGLOBIN (BEAKER) (test 28.0 pg 25.6-32.2 luug=576) MEAN CORPUSCULAR HEMOGLOBIN CONC (BEAKER) (test 32.3 GM/DL 32.2-35.5 qcqz=888) RED CELL DISTRIBUTION WIDTH (BEAKER) (test 14.6 % 11.7-14.4 impi=370) PLATELET COUNT (BEAKER) (test gkvm=620) 345 K/CU MM 150-450 MEAN PLATELET VOLUME (BEAKER) (test eymc=250) 9.8 fL 9.4-12.3 NUCLEATED RED BLOOD CELLS (BEAKER) (test 0 /100 WBC 0-0 wapd=810) CBC (HEMOGRAM ONLY)2019-01-11 15:42:00 Test Item Value Reference Range Comments WHITE BLOOD CELL COUNT (BEAKER) (test lcgc=130) 7.5 K/ L 3.5-10.5 RED BLOOD CELL COUNT (BEAKER) (test pivt=886) 3.65 M/ L 3.93-5.22 HEMOGLOBIN (BEAKER) (test ikgu=148) 10.1 GM/DL 11.2-15.7 HEMATOCRIT (BEAKER) (test urcu=439) 32.4 % 34.1-44.9 MEAN CORPUSCULAR VOLUME (BEAKER) (test kdyk=732) 88.8 fL 79.4-94.8 MEAN CORPUSCULAR HEMOGLOBIN (BEAKER) (test 27.7 pg 25.6-32.2 nsfi=198) MEAN CORPUSCULAR HEMOGLOBIN CONC (BEAKER) (test 31.2 GM/DL 32.2-35.5 ewqa=665) RED CELL DISTRIBUTION WIDTH (BEAKER) (test 14.6 % 11.7-14.4 ricz=850) PLATELET COUNT (BEAKER) (test cpje=322) 353 K/CU MM 150-450 MEAN PLATELET VOLUME (BEAKER) (test bwbe=731) 9.7 fL 9.4-12.3 NUCLEATED RED BLOOD CELLS (BEAKER) (test 0 /100 WBC 0-0 nhgm=715) BASIC METABOLIC [id number] 14:05:00 Test Item Value Reference Range Comments SODIUM (BEAKER) (test 137 meq/L 136-145 uyrc=227) POTASSIUM (BEAKER) (test 4.1 meq/L 3.5-5.1 dega=798) CHLORIDE (BEAKER) (test 103 meq/L 98-107 mgqf=463) CO2 (BEAKER) (test 28 meq/L 22-29 avdf=346) BLOOD UREA NITROGEN 5 mg/dL 7-21 (BEAKER) (test buml=139) CREATININE (BEAKER) (test 0.68 mg/dL 0.57-1.25 gslx=784) GLUCOSE RANDOM (BEAKER) 97 mg/dL 70-105 (test repq=820) CALCIUM (BEAKER) (test 7.9 mg/dL 8.4-10.2 kcka=608) EGFR (BEAKER) (test 89 mL/min/1.73 sq m ESTIMATED GFR IS NOT nnjc=7428) ACCURATE CREATININE CLEARANCE IN PREDICTING GLOMERULAR FILTRATION RATE. ESTIMATED GFR IS NOT APPLICABLE FOR DIALYSIS PATIENTS. TROPONIN [id number] 09:07:00 Test Item Value Reference Range Comments TROPONIN I (BEAKER) (test pute=764) 0.06 ng/mL 0.00-0.03 Troponin I (TnI) levels [...] acidosis, acute neurological disease, and persistent tachyarrhythmia.TROPONIN [id number] 06:51:00 Test Item Value Reference Range Comments TROPONIN I (BEAKER) (test nwwh=847) 0.05 ng/mL 0.00-0.03 Troponin I (TnI) levels [...] acute neurological disease, and persistent tachyarrhythmia.BASIC METABOLIC [id number] 06:51:00 Test Item Value Reference Range Comments SODIUM (BEAKER) (test 139 meq/L 136-145 imbe=996) POTASSIUM (BEAKER) (test 3.0 meq/L 3.5-5.1 voni=121) CHLORIDE (BEAKER) (test 102 meq/L 98-107 ibdf=692) CO2 (BEAKER) (test 29 meq/L 22-29 vicp=394) BLOOD UREA NITROGEN 6 mg/dL 7-21 (BEAKER) (test xzzi=621) CREATININE (BEAKER) (test 0.71 mg/dL 0.57-1.25 zwzo=201) GLUCOSE RANDOM (BEAKER) 118 mg/dL 70-105 (test cmzk=087) CALCIUM (BEAKER) (test 7.8 mg/dL 8.4-10.2 lvvg=640) EGFR (BEAKER) (test 84 mL/min/1.73 sq m ESTIMATED GFR IS NOT fmya=0207) ACCURATE CREATININE CLEARANCE IN PREDICTING GLOMERULAR FILTRATION RATE. ESTIMATED GFR IS NOT APPLICABLE FOR DIALYSIS PATIENTS. [id number] 06:44:00 Test Item Value Reference Range Comments MAGNESIUM (BEAKER) (test rdip=909) 1.8 mg/dL 1.6-2.6 PT/[id number] 04:26:00 Test Item Value Reference Range Comments PROTIME (BEAKER) (test fted=545) 14.9 seconds 11.9-14.2 INR (BEAKER) (test nutg=628) 1.2 <=5.9 PARTIAL THROMBOPLASTIN TIME (BEAKER) (test 90.9 seconds 22.5-36.0 puqb=111) Effective 12/31/2018: PT Reference Range ChangeNew: 11.9-14.2 Previous: 11.7- 14.7RECOMMENDED COUMADIN/WARFARIN INR THERAPY RANGESSTANDARD DOSE: 2.0-3.0 Includes: PROPHYLAXIS for venous thrombosis, systemic embolization; TREATMENT for venous thrombosis and/or pulmonary embolus.HIGH RISK: Target INR is2.5-3.5 for patients wiht mechanical heart valves.Per heparin sliding scalePer heparin sliding scaleHEMOGLOBIN AND [id number] 04:15:00 Test Item Value Reference Range Comments HEMOGLOBIN (BEAKER) (test itvh=283) 9.5 GM/DL 11.2-15.7 HEMATOCRIT (BEAKER) (test mppt=396) 30.2 % 34.1-44.9 TROPONIN [id number] 22:28:00 Test Item Value Reference Range Comments TROPONIN I (BEAKER) (test btrt=527) 0.07 ng/mL 0.00-0.03 Troponin I (TnI) levels [...] failure, acidosis, acute neurological disease, and persistent tachyarrhythmia.PT/[id number] 22:15:00 Test Item Value Reference Range Comments PROTIME (BEAKER) (test rzvu=222) 15.0 seconds 11.9-14.2 INR (BEAKER) (test pqlb=679) 1.2 <=5.9 PARTIAL THROMBOPLASTIN TIME (BEAKER) (test 38.3 seconds 22.5-36.0 uiqr=053) Effective 12/31/2018: PT Reference Range ChangeNew: 11.9-14.2 Previous: 11.7- 14.7RECOMMENDED COUMADIN/WARFARIN INR THERAPY RANGESSTANDARD DOSE: 2.0-3.0 Includes: PROPHYLAXIS for venous thrombosis, systemic embolization; TREATMENT for venous thrombosis and/or pulmonary embolus.HIGH RISK: Target INR is2.5-3.5 for patients wiht mechanical heart valves.Per heparin sliding scalePer heparin sliding scaleRAD, ABDOMEN/KUB, 1 VIEW [id number] 18:44:00Reason for exam:-> vomitingFINAL REPORT Abdomen dated [...] MDReport Verified Date/Time: 01/10/2019 18:44:41 Reading Location: [address] Body Reading Room [id number] 14:44:00 Test Item Value Reference Range Comments MAGNESIUM (BEAKER) (test rqsw=484) 1.6 mg/dL 1.6-2.6 BASIC METABOLIC [id number] 14:44:00 Test Item Value Reference Range Comments SODIUM (BEAKER) (test 140 meq/L 136-145 xnhv=613) POTASSIUM (BEAKER) (test 2.9 meq/L 3.5-5.1 ohim=061) CHLORIDE (BEAKER) (test 105 meq/L 98-107 fjqo=330) CO2 (BEAKER) (test 28 meq/L 22-29 ixgs=755) BLOOD UREA NITROGEN 7 mg/dL 7-21 (BEAKER) (test kjmo=558) CREATININE (BEAKER) (test 0.69 mg/dL 0.57-1.25 otsx=477) GLUCOSE RANDOM (BEAKER) 84 mg/dL 70-105 (test cpac=100) CALCIUM (BEAKER) (test 8.0 mg/dL 8.4-10.2 vimq=342) EGFR (BEAKER) (test 87 mL/min/1.73 sq m ESTIMATED GFR IS NOT azsr=0378) ACCURATE CREATININE CLEARANCE IN PREDICTING GLOMERULAR FILTRATION RATE. ESTIMATED GFR IS NOT APPLICABLE FOR DIALYSIS PATIENTS. TROPONIN [id number] 14:44:00 Test Item Value Reference Range Comments TROPONIN I (BEAKER) (test gwqx=690) 0.08 ng/mL 0.00-0.03 Troponin I (TnI) levels [...] and persistent tachyarrhythmia.CBC W/PLT COUNT & AUTO [id number] 14:34:00 Test Item Value Reference Range Comments WHITE BLOOD CELL COUNT (BEAKER) (test ffdr=981) 6.6 K/ L 3.5-10.5 RED BLOOD CELL COUNT (BEAKER) (test gjzx=403) 3.38 M/ L 3.93-5.22 HEMOGLOBIN (BEAKER) (test vtkn=487) 9.4 GM/DL 11.2-15.7 HEMATOCRIT (BEAKER) (test ihnk=299) 30.2 % 34.1-44.9 MEAN CORPUSCULAR VOLUME (BEAKER) (test hqjs=850) 89.3 fL 79.4-94.8 MEAN CORPUSCULAR HEMOGLOBIN (BEAKER) (test 27.8 pg 25.6-32.2 pnsb=807) MEAN CORPUSCULAR HEMOGLOBIN CONC (BEAKER) (test 31.1 GM/DL 32.2-35.5 zjfu=984) RED CELL DISTRIBUTION WIDTH (BEAKER) (test 15.0 % 11.7-14.4 gtrl=394) PLATELET COUNT (BEAKER) (test jtlz=304) 288 K/CU MM 150-450 MEAN PLATELET VOLUME (BEAKER) (test bnbz=711) 10.5 fL 9.4-12.3 NUCLEATED RED BLOOD CELLS (BEAKER) (test 0 /100 WBC 0-0 retu=589) NEUTROPHILS RELATIVE PERCENT (BEAKER) (test 68 % xijp=431) LYMPHOCYTES RELATIVE PERCENT (BEAKER) (test 24 % limh=041) MONOCYTES RELATIVE PERCENT (BEAKER) (test 5 % ftjr=919) EOSINOPHILS RELATIVE PERCENT (BEAKER) (test 0 % yqln=402) BASOPHILS RELATIVE PERCENT (BEAKER) (test 0 % sdfn=349) NEUTROPHILS ABSOLUTE COUNT (BEAKER) (test 4.42 K/ L 1.56-6.13 tskh=485) LYMPHOCYTES ABSOLUTE COUNT (BEAKER) (test 1.59 K/ L 1.18-3.74 zfqe=511) MONOCYTES ABSOLUTE COUNT (BEAKER) (test 0.35 K/ L 0.24-0.36 henw=420) EOSINOPHILS ABSOLUTE COUNT (BEAKER) (test 0.00 K/ L 0.04-0.36 tzvq=089) BASOPHILS ABSOLUTE COUNT (BEAKER) (test 0.02 K/ L 0.01-0.08 liwf=535) IMMATURE GRANULOCYTES-RELATIVE PERCENT (BEAKER) 3 % 0-1 (test vnlt=2302) [id number] 13:25:00 Test Item Value Reference Range Comments AMYLASE (BEAKER) (test xfee=769) 29 U/L 25-125 [id number] 13:25:00 Test Item Value Reference Range Comments LIPASE (BEAKER) (test otyz=476) 16 U/L 8-78 [id number] 13:24:00 Test Item Value Reference Range Comments PARTIAL THROMBOPLASTIN TIME (BEAKER) (test 41.1 seconds 22.5-36.0 lyey=128) 6 hours after starting heparin infusion and as indicated per sliding scaleHEMOGLOBIN AND [id number] 13:10:00 Test Item Value Reference Range Comments HEMOGLOBIN (BEAKER) (test rkyl=180) 9.3 GM/DL 11.2-15.7 HEMATOCRIT (BEAKER) (test zrxj=390) 30.0 % 34.1-44.9 U/S, ABDOMINAL, [id number] 12:16:00Abdomen limited area? Add comment if clarification [...] MDReport Verified Date/Time: 01/10/2019 12:16:23 Reading Location: [address] Consult Reading Room PT/[id number] 20:52:00 Test Item Value Reference Range Comments PROTIME (BEAKER) (test pgeq=752) 18.3 seconds 11.9-14.2 INR (BEAKER) (test ibrh=355) 1.6 <=5.9 PARTIAL THROMBOPLASTIN TIME (BEAKER) (test 56.3 seconds 22.5-36.0 kewn=184) Effective 12/31/2018: PT Reference Range ChangeNew: 11.9-14.2 Previous: 11.7- 14.7RECOMMENDED COUMADIN/WARFARIN INR THERAPY RANGESSTANDARD DOSE: 2.0-3.0 Includes: PROPHYLAXIS for venous thrombosis, systemic embolization; TREATMENT for venous thrombosis and/or pulmonary embolus.HIGH RISK: Target INR is2.5-3.5 for patients wiht mechanical heart valves.HEMOGLOBIN AND [id number] 16 :23:00 Test Item Value Reference Range Comments HEMOGLOBIN (BEAKER) (test fklz=956) 9.4 GM/DL 11.2-15.7 HEMATOCRIT (BEAKER) (test pdeg=899) 29.9 % 34.1-44.9 PT/[id number] 07:42:00 Test Item Value Reference Range Comments PROTIME (BEAKER) (test yabx=137) 19.1 seconds 11.9-14.2 INR (BEAKER) (test tzwh=014) 1.7 <=5.9 PARTIAL THROMBOPLASTIN TIME (BEAKER) (test 111.0 seconds 22.5-36.0 ttdm=142) Effective 12/31/2018: PT Reference Range ChangeNew: 11.9-14.2 Previous: 11.7- 14.7RECOMMENDED COUMADIN/WARFARIN INR THERAPY RANGESSTANDARD DOSE: 2.0-3.0 Includes: PROPHYLAXIS for venous thrombosis, systemic embolization; TREATMENT for venous thrombosis and/or pulmonary embolus.HIGH RISK: Target INR is2.5-3.5 for patients wiht mechanical heart valves.[id number] 03:41:00 Test Item Value Reference Range Comments MAGNESIUM (BEAKER) (test vnlh=193) 1.7 mg/dL 1.6-2.6 BASIC METABOLIC [id number] 03:41:00 Test Item Value Reference Range Comments SODIUM (BEAKER) (test 140 meq/L 136-145 jjed=322) POTASSIUM (BEAKER) (test 4.2 meq/L 3.5-5.1 ussd=222) CHLORIDE (BEAKER) (test 106 meq/L 98-107 upih=553) CO2 (BEAKER) (test 29 meq/L 22-29 dfqu=996) BLOOD UREA NITROGEN 7 mg/dL 7-21 (BEAKER) (test oeov=686) CREATININE (BEAKER) (test 0.68 mg/dL 0.57-1.25 whoq=288) GLUCOSE RANDOM (BEAKER) 114 mg/dL 70-105 (test sfdy=318) CALCIUM (BEAKER) (test 7.9 mg/dL 8.4-10.2 ddlu=245) EGFR (BEAKER) (test 89 mL/min/1.73 sq m ESTIMATED GFR IS NOT sczi=3003) ACCURATE CREATININE CLEARANCE IN PREDICTING GLOMERULAR FILTRATION RATE. ESTIMATED GFR IS NOT APPLICABLE FOR DIALYSIS PATIENTS. PROTHROMBIN TIME/[id number] 03:35:00 Test Item Value Reference Range Comments PROTIME (BEAKER) (test thbo=255) 19.6 seconds 11.9-14.2 INR (BEAKER) (test joub=319) 1.8 <=5.9 Effective 12/31/2018: PT Reference Range ChangeNew: 11.9-14.2 Previous: 11.7- 14.7RECOMMENDED COUMADIN/WARFARIN INR THERAPY RANGESSTANDARD DOSE: 2.0-3.0 Includes: PROPHYLAXIS for venous thrombosis, systemic embolization; TREATMENT for venous thrombosis and/or pulmonary embolus.HIGH RISK: Target INR is2.5-3.5 for patients wiht mechanical heart valves.HEMOGLOBIN AND [id number] 03 :21:00 Test Item Value Reference Range Comments HEMOGLOBIN (BEAKER) (test tttt=018) 8.8 GM/DL 11.2-15.7 HEMATOCRIT (BEAKER) (test axyt=630) 27.9 % 34.1-44.9 PT/[id number] 23:57:00 Test Item Value Reference Range Comments PROTIME (BEAKER) (test ufoz=844) 19.1 seconds 11.9-14.2 INR (BEAKER) (test sbqu=425) 1.7 <=5.9 PARTIAL THROMBOPLASTIN TIME (BEAKER) (test 84.3 seconds 22.5-36.0 zpqs=087) Effective 12/31/2018: PT Reference Range ChangeNew: 11.9-14.2 Previous: 11.7- 14.7RECOMMENDED COUMADIN/WARFARIN INR THERAPY RANGESSTANDARD DOSE: 2.0-3.0 Includes: PROPHYLAXIS for venous thrombosis, systemic embolization; TREATMENT for venous thrombosis and/or pulmonary embolus.HIGH RISK: Target INR is2.5-3.5 for patients wiht mechanical heart valves.PT/[id number] 22:20:00 Test Item Value Reference Range Comments PROTIME (BEAKER) (test chiz=295) 19.3 seconds 11.9-14.2 INR (BEAKER) (test iswr=310) 1.7 <=5.9 PARTIAL THROMBOPLASTIN TIME (BEAKER) (test 111.7 seconds 22.5-36.0 equm=227) Effective 12/31/2018: PT Reference Range ChangeNew: 11.9-14.2 Previous: 11.7- 14.7RECOMMENDED COUMADIN/WARFARIN INR THERAPY RANGESSTANDARD DOSE: 2.0-3.0 Includes: PROPHYLAXIS for venous thrombosis, systemic embolization; TREATMENT for venous thrombosis and/or pulmonary embolus.HIGH RISK: Target INR is2.5-3.5 for patients wiht mechanical heart valves.Patient is on agartrobanPatient is on agartrobanHEMOGLOBIN AND [id number] 22:08:00 Test Item Value Reference Range Comments HEMOGLOBIN (BEAKER) (test hdjm=445) 9.6 GM/DL 11.2-15.7 HEMATOCRIT (BEAKER) (test lghs=351) 30.5 % 34.1-44.9 HEMOGLOBIN AND [id number] 16:25:00 Test Item Value Reference Range Comments HEMOGLOBIN (BEAKER) (test tcby=123) 8.7 GM/DL 11.2-15.7 HEMATOCRIT (BEAKER) (test huyu=941) 27.5 % 34.1-44.9 CBC (HEMOGRAM ONLY)2019-01-08 16:25:00 Test Item Value Reference Range Comments WHITE BLOOD CELL COUNT (BEAKER) (test kcky=406) 5.7 K/ L 3.5-10.5 RED BLOOD CELL COUNT (BEAKER) (test mwav=240) 3.13 M/ L 3.93-5.22 HEMOGLOBIN (BEAKER) (test olmz=092) 8.7 GM/DL 11.2-15.7 HEMATOCRIT (BEAKER) (test xxdp=644) 27.5 % 34.1-44.9 MEAN CORPUSCULAR VOLUME (BEAKER) (test ssry=067) 87.9 fL 79.4-94.8 MEAN CORPUSCULAR HEMOGLOBIN (BEAKER) (test 27.8 pg 25.6-32.2 dpvx=871) MEAN CORPUSCULAR HEMOGLOBIN CONC (BEAKER) (test 31.6 GM/DL 32.2-35.5 uixb=594) RED CELL DISTRIBUTION WIDTH (BEAKER) (test 15.6 % 11.7-14.4 ggew=884) PLATELET COUNT (BEAKER) (test vzju=205) 226 K/CU MM 150-450 MEAN PLATELET VOLUME (BEAKER) (test vvmb=957) 10.8 fL 9.4-12.3 NUCLEATED RED BLOOD CELLS (BEAKER) (test 0 /100 WBC 0-0 qntb=092) [id number] 15:07:00 Test Item Value Reference Range Comments PARTIAL THROMBOPLASTIN TIME (BEAKER) (test 59.8 seconds 22.5-36.0 qyrk=821) PROTHROMBIN TIME/[id number] 14:32:00 Test Item Value Reference Range Comments PROTIME (BEAKER) (test ttoa=591) 19.7 seconds 11.9-14.2 INR (BEAKER) (test quml=299) 1.8 <=5.9 Effective 12/31/2018: PT Reference Range ChangeNew: 11.9-14.2 Previous: 11.7- 14.7RECOMMENDED COUMADIN/WARFARIN INR THERAPY RANGESSTANDARD DOSE: 2.0-3.0 Includes: PROPHYLAXIS for venous thrombosis, systemic embolization; TREATMENT for venous thrombosis and/or pulmonary embolus.HIGH RISK: Target INR is2.5-3.5 for patients wiht mechanical heart valves.B-TYPE NATRIURETIC FACTOR (BNP)2019-01 12:44:00 Test Item Value Reference Range Comments B-TYPE NATRIURETIC PEPTIDE (BEAKER) (test 526 pg/mL 0-100 ujox=782) [id number] 12:34:00 Test Item Value Reference Range Comments POTASSIUM (BEAKER) (test qlzu=835) 3.9 meq/L 3.5-5.1 [id number] 12:34:00 Test Item Value Reference Range Comments MAGNESIUM (BEAKER) (test gvvl=655) 2.0 mg/dL 1.6-2.6 [id number] 11:33:00 Test Item Value Reference Range Comments PROCALCITONIN (BEAKER) (test cwwm=3835) 0.05 ng/mL <0.05 SEPSIS RISK (ng/mL)Low: 0.05-0.50Intermediate: 0.51-2.00High: & gt;=2.01LACTIC ACID, [id number] 10:31:00 Test Item Value Reference Range Comments LACTATE BLOOD VENOUS (2) (BEAKER) (test 0.7 mmol/L 0.5-2.2 tqnr=1565) HEMOGLOBIN AND [id number] 10:10:00 Test Item Value Reference Range Comments HEMOGLOBIN (BEAKER) (test iqki=113) 8.3 GM/DL 11.2-15.7 HEMATOCRIT (BEAKER) (test zzrx=758) 26.2 % 34.1-44.9 BASIC METABOLIC [id number] 08:27:00 Test Item Value Reference Range Comments SODIUM (BEAKER) (test 139 meq/L 136-145 tbdd=328) POTASSIUM (BEAKER) (test 3.2 meq/L 3.5-5.1 ugvx=189) CHLORIDE (BEAKER) (test 105 meq/L 98-107 smcy=813) CO2 (BEAKER) (test 28 meq/L 22-29 ulhb=696) BLOOD UREA NITROGEN 8 mg/dL 7-21 (BEAKER) (test ztst=293) CREATININE (BEAKER) (test 0.72 mg/dL 0.57-1.25 vlnh=341) GLUCOSE RANDOM (BEAKER) 91 mg/dL 70-105 (test rykg=296) CALCIUM (BEAKER) (test 7.6 mg/dL 8.4-10.2 kbpb=642) EGFR (BEAKER) (test 83 mL/min/1.73 sq m ESTIMATED GFR IS NOT qcrp=5173) ACCURATE CREATININE CLEARANCE IN PREDICTING GLOMERULAR FILTRATION RATE. ESTIMATED GFR IS NOT APPLICABLE FOR DIALYSIS PATIENTS. RAD, CHEST, 1 VIEW, NON [id number] 08:17:00Reason for exam:->pulmonary edemaShould this be performed [...] [place] Verified Date/Time: 2018 08:17:31 Reading Location: [facility] Radiology Reading Room [id number] -[id number] 08:12:00 Test Item Value Reference Range Comments MAGNESIUM (BEAKER) (test gzbg=594) 2.0 mg/dL 1.6-2.6 [id number] 07:14:00 Test Item Value Reference Range Comments FERRITIN (BEAKER) (test bcic=748) 346 ng/mL 5-275 IRON, TIBC, % SAT. (WITHOUT FERRITIN)2019-01-08 06:51:00 Test Item Value Reference Range Comments IRON (BEAKER) (test wsfl=961) 27.0 ug/dL 40.0-160.0 TOTAL IRON BINDING CAPACITY (BEAKER) (test 196 ug/dL 250-450 acnb=280) IRON % SATURATION (2) (BEAKER) (test pumw=5609) 14 % 20-55 HEMOGLOBIN AND [id number] 06:25:00 Test Item Value Reference Range Comments HEMOGLOBIN (BEAKER) (test efwj=602) 7.8 GM/DL 11.2-15.7 HEMATOCRIT (BEAKER) (test bfbw=692) 24.4 % 34.1-44.9 THROMBOELASTOGRAPH (TEG)2019-01-08 01:42:00 Test Item Value Reference Range Comments TEG ACTIVATED CLOTTING TIME (BEAKER) (test 8.4 minutes 4.0-7.0 ualm=3971) TEG FIBRINOGEN ACTIVITY (BEAKER) (test 71.7 degrees 61.0-73.0 fnjq=4562) TEG PLT. AGGREGATION (BEAKER) (test wgsf=6554) 68.2 MM 55.0-65.0 TEG FIBRINOLYSIS (BEAKER) (test memo=4437) 0.0 % 0.0-5.0 TGH ACTIVATED CLOTTING TIME (BEAKER) (test 8.9 minutes 4.0-7.0 jqan=9786) TGH FIBRINOGEN ACTIVITY (BEAKER) (test 70.1 degrees 61.0-73.0 igef=5308) TGH PLT. AGGREGATION (BEAKER) (test dfrw=9172) 65.3 MM 55.0-65.0 TGH FIBRINOLYSIS (BEAKER) (test kmfr=8232) 0.0 % 0.0-5.0 RAD, CHEST, 1 VIEW, NON [id number] 23:31:00Reason for exam:-> DyspneaShould this be performed [...] Verified Date/Time : 01/07/2019 23:31:03 Reading Location: [address] Reading Room COMPREHENSIVE METABOLIC [id number] 22:56:00 Test Item Value Reference Range Comments TOTAL PROTEIN (BEAKER) 5.8 gm/dL 6.0-8.3 (test hgjc=266) ALBUMIN (BEAKER) (test 3.0 g/dL 3.5-5.0 vtib=5681) ALKALINE PHOSPHATASE 56 U/L 40-150 (BEAKER) (test qmln=319) BILIRUBIN TOTAL (BEAKER) 0.7 mg/dL 0.2-1.2 (test llnj=666) SODIUM (BEAKER) (test 139 meq/L 136-145 gtdu=038) POTASSIUM (BEAKER) (test 3.4 meq/L 3.5-5.1 sgdb=528) CHLORIDE (BEAKER) (test 109 meq/L 98-107 gedt=414) CO2 (BEAKER) (test 23 meq/L 22-29 pivf=526) BLOOD UREA NITROGEN 9 mg/dL 7-21 (BEAKER) (test zykj=455) CREATININE (BEAKER) (test 0.75 mg/dL 0.57-1.25 fmyc=853) GLUCOSE RANDOM (BEAKER) 102 mg/dL 70-105 (test bcol=566) CALCIUM (BEAKER) (test 7.1 mg/dL 8.4-10.2 boki=673) AST (SGOT) (BEAKER) (test 25 U/L 5-34 tnan=801) ALT (SGPT) (BEAKER) (test 11 U/L 6-55 gjbd=222) EGFR (BEAKER) (test 79 mL/min/1.73 sq m ESTIMATED GFR IS NOT whcx=7225) ACCURATE CREATININE CLEARANCE IN PREDICTING GLOMERULAR FILTRATION RATE. ESTIMATED GFR IS NOT APPLICABLE FOR DIALYSIS PATIENTS. [id number] 22:51:00 Test Item Value Reference Range Comments MAGNESIUM (BEAKER) (test hpnd=246) 1.3 mg/dL 1.6-2.6 [id number] 22:45:00 Test Item Value Reference Range Comments FIBRINOGEN LEVEL (BEAKER) (test rhtd=576) 509 mg/dl 225-434 PROTHROMBIN TIME/[id number] 22:09:00 Test Item Value Reference Range Comments PROTIME (BEAKER) (test ghww=559) 20.5 seconds 11.9-14.2 INR (BEAKER) (test vmml=677) 1.9 <=5.9 Effective 12/31/2018: PT Reference Range ChangeNew: 11.9-14.2 Previous: 11.7- 14.7RECOMMENDED COUMADIN/WARFARIN INR THERAPY RANGESSTANDARD DOSE: 2.0-3.0 Includes: PROPHYLAXIS for venous thrombosis, systemic embolization; TREATMENT for venous thrombosis and/or pulmonary embolus.HIGH RISK: Target INR is2.5-3.5 for patients wiht mechanical heart valves.CBC W/PLT COUNT & AUTO [id number] 22:05:00 Test Item Value Reference Range Comments WHITE BLOOD CELL COUNT (BEAKER) (test sdnv=741) 4.2 K/ L 3.5-10.5 RED BLOOD CELL COUNT (BEAKER) (test jaty=794) 2.41 M/ L 3.93-5.22 HEMOGLOBIN (BEAKER) (test dwrr=244) 6.7 GM/DL 11.2-15.7 HEMATOCRIT (BEAKER) (test xnuf=434) 21.4 % 34.1-44.9 MEAN CORPUSCULAR VOLUME (BEAKER) (test cqbj=509) 88.8 fL 79.4-94.8 MEAN CORPUSCULAR HEMOGLOBIN (BEAKER) (test 27.8 pg 25.6-32.2 jnwx=378) MEAN CORPUSCULAR HEMOGLOBIN CONC (BEAKER) (test 31.3 GM/DL 32.2-35.5 cmvi=946) RED CELL DISTRIBUTION WIDTH (BEAKER) (test 14.2 % 11.7-14.4 mxeq=991) PLATELET COUNT (BEAKER) (test eexg=909) 208 K/CU MM 150-450 MEAN PLATELET VOLUME (BEAKER) (test czhi=671) 10.2 fL 9.4-12.3 NUCLEATED RED BLOOD CELLS (BEAKER) (test 0 /100 WBC 0-0 ypir=943) NEUTROPHILS RELATIVE PERCENT (BEAKER) (test 73 % josb=820) LYMPHOCYTES RELATIVE PERCENT (BEAKER) (test 19 % bfxc=931) MONOCYTES RELATIVE PERCENT (BEAKER) (test 8 % sqmc=490) EOSINOPHILS RELATIVE PERCENT (BEAKER) (test 0 % wsny=338) BASOPHILS RELATIVE PERCENT (BEAKER) (test 0 % olql=344) NEUTROPHILS ABSOLUTE COUNT (BEAKER) (test 3.08 K/ L 1.56-6.13 rzpn=966) LYMPHOCYTES ABSOLUTE COUNT (BEAKER) (test 0.79 K/ L 1.18-3.74 lnkc=122) MONOCYTES ABSOLUTE COUNT (BEAKER) (test 0.32 K/ L 0.24-0.36 mafn=626) EOSINOPHILS ABSOLUTE COUNT (BEAKER) (test 0.00 K/ L 0.04-0.36 gkcd=180) BASOPHILS ABSOLUTE COUNT (BEAKER) (test 0.00 K/ L 0.01-0.08 pelv=146) IMMATURE GRANULOCYTES-RELATIVE PERCENT (BEAKER) 1 % 0-1 (test gdul=9935)
--- NOTE | 2019-08-06 17:46 | RAD REPORT ---
EXAM DESCRIPTION: RAD - Femur Left - 08/06/2019 5:38 pm CLINICAL HISTORY: Left leg pain FINDINGS: The bones are osteoporotic. Left femoral prosthesis in place without loosening. No fracture is seen. Calcific densities within the distal femur may represent bone infarcts.
--- NOTE | 2019-08-06 18:03 | RAD REPORT ---
EXAM DESCRIPTION: CT - Head C Spine Cap Wo Con - 08/06/2019 5:43 pm TECHNIQUE: Computed axial tomography of the head and cervical spine was obtained. Coronal and sagitt al reconstruction was performed Computed axial tomography of the chest, abdomen and pelvis was obtained. Contrast was not requested. All CT scans are performed using dose optimization technique as appropriate and may include automated exposure control or mA/KV adjustment according to patient size. CLINICAL HISTORY: Head and neck injury with chest and abdominal pain status post fall COMPARISON: CT 2019 FINDINGS: An intracranial bleed is not seen. The ventricles are normal in caliber. An extra-axial fluid collection is not noted. . Fluid within the sinuses/mastoids is not seen. A cervical fracture is not seen. No dislocation is noted. The evaluation of mediastinum, [place], vessels, solid organs and bowel are limited secondary to the lac k of contrast administration. A mediastinal hematoma is not noted. A pleural effusion is not seen. A lung contusion is not present. The liver,spleen, pancreas, adrenals,kidneys and bladder do not demonstrate a traumatic injury Bilateral hip arthroplasties. Artifact from the prosthesis obscures detail within the pelvis somewhat . Cholelithiasis. Hepatic and splenic granulomata The left thigh hematoma seen on the August 05, 2019 ultrasound is not well visualized on the current exam has is mostly obscured by artifact from the left hip prosthesis. IMPRESSION: 1. No acute intracranial abnormality is seen. 2. A cervical fracture is not visualized. If the patient continues have symptoms to suggest intracran ial/spinal cord pathology MRI be recommended 3. No traumatic abnormality involving the chest and abdomen noted 4. The left thigh hematoma seen on the August 05, 2019 ultrasound is not well visualized on the curre nt exam has is mostly obscured by artifact from the left hip prosthesis.
--- NOTE | 2019-08-06 18:17 | EDPHYS ---
Physician Documentation [facility] Name: Kim Aldana Age: 59 yrs Sex: Female : 1960 Arrival Date: 08/06/2019 Time: 16:47 Bed 6 Private MD: ED Physician Vick Barakat HPI: 08/06 17:20 This 59 yrs old Female presents to ER via EMS with complaints of thigh pain. kb 17:20 The patient presents with pain, that is acute. The complaints affect the left kb quadriceps. Context: The problem was sustained at home, resulted from the patient falling, while walking, the patient can partially bear weight, uses a walker, Problem is a result from a previous injury: Yes. Onset: The symptoms/episode began/occurred 1 week(s) ago. Modifying factors: The symptoms are alleviated by nothing. the symptoms are aggravated by movement. Associated signs and symptoms: Pertinent positives: swelling. Treatment prior to arrival includes: noemí wrap. Severity of symptoms: At their worst the symptoms were moderate, in the emergency department the symptoms are unchanged. The patient has not experienced similar symptoms in the past. The patient has been recently seen at the [facility] Emergency Department, yesterday. Pt was seen yesterday for hematoma to left thigh. x-ray and US negative. Today she comes back for the same pain and reports she lost her prescription for pain medication. When I walked into the room pt was laying on the floor. Pt reports she wasn't paying attention and rolled over and off of the stretcher. Pt reports pain to hips and bilateral shoulders due to this fall. Pt is awake, alert and oriented, but drowsy.. Historical: - Allergies: 17:06 Aspirin; aj1 17:06 Compazine; aj1 17:06 Methadone; aj1 17:06 Morphine; aj1 17:06 Neurontin; aj1 17:06 PENICILLINS; aj1 17:06 Phenergan; aj1 17:06 plastic tape; aj1 17:06 Suboxone; aj1 - Home Meds: 17:06 acyclovir 400 mg Oral tab 2 tabs daily [Active]; Albuterol Inhl [Active]; alprazolam 2 aj1 mg Oral tab twice a day [Active]; amitriptyline 75 mg Oral tab [Active]; biotin 5000 mcg Oral daily [Active]; calcium with viatmin D, 1 po daily [Active]; cyclobenzaprine 10 mg Oral tab 4 times daily [Active]; Estrace 0.01 twice weekly Oral [Active]; Fish Oil 1,000 mg Oral cap daily [Active]; gabapentin 300 mg Oral cap daily [Active]; levothyroxine 150 mcg tab once daily [Active]; Lyrica 100mg 2 po daily Oral [Active]; magnesium oxide 400 mg Oral cap daily [Active]; metoprolol tartrate 25 mg Oral tab once daily [Active]; minocycline 100 mg Oral cap 2 times per day [Active]; multivitamin Oral cap daily [Active]; potassium gluconate 595 mg (99 mg) Oral tab daily [Active]; prednisone 2.5 mg Oral tab once daily [Active]; Prilosec 20 mg Oral cpDR 2 times per day [Active]; Restasis ophthalmic [Active]; Sumatriptan Sub-Q [Active]; warfarin 4 mg Oral tab once daily [Active]; Zofran (as hydrochloride) 4 mg Oral tab 2 times per day [Active]; - PMHx: 17:06 arterial insuficiency; Back pain; cerebritis; chest pain; Chronic pain; dejenteritive aj1 joint disease; Dyspepsia; esophageal reflux; fatigue; hypersomnia; lumbar radiculitis; Lupus; menopause; osteomyelitis; Panic Attacks; pulmonary edema; Seizures; Tachycardia; TIA; venous insufficiency; - Immunization history:: Flu vaccine is up to date. - Social history:: Smoking status: Patient uses tobacco products, 1/3 PPD. - Ebola Screening: : Patient denies travel to an Ebola-affected area in the 21 days before illness onset. ROS: 17:20 Constitutional: Negative for fever, chills, and weight loss, Eyes: Negative for injury, kb pain, redness, and discharge, ENT: Negative for injury, pain, and discharge, Neck: Negative for injury, pain, and swelling, Cardiovascular: Negative for chest pain, palpitations, and edema, Respiratory: Negative for shortness of breath, cough, wheezing, and pleuritic chest pain, Abdomen/GI: Negative for abdominal pain, nausea, vomiting, diarrhea, and constipation, Back: Negative for injury and pain, Skin: Negative for injury, rash, and discoloration, Neuro: Negative for headache, weakness, numbness, tingling, and seizure. 17:20 MS/extremity: Positive for pain, swelling, tenderness, of the left quadriceps. Exam: 17:20 Constitutional: This is a well developed, well nourished patient who is awake, alert, kb and in no acute distress. Head/Face: Normocephalic, atraumatic. ENT: Nares patent. No nasal discharge, no septal abnormalities noted. Tympanic membranes are normal and external auditory canals are clear. Oropharynx with no redness, swelling, or masses, exudates, or evidence of obstruction, uvula midline. Mucous membranes moist. Neck: Trachea midline, no thyromegaly or masses palpated, and no cervical lymphadenopathy. Supple, full range of motion without nuchal rigidity, or vertebral point tenderness. No Meningismus. Chest/axilla: Normal chest wall appearance and motion. Nontender with no deformity. No lesions are appreciated. Cardiovascular: Regular rate and rhythm with a normal S1 and S2. No gallops, murmurs, or rubs. Normal PMI, no JVD. No pulse deficits. Respiratory: Lungs have equal breath sounds bilaterally, clear to auscultation and percussion. No rales, rhonchi or wheezes noted. No increased work of breathing, no retractions or nasal flaring. Abdomen/GI: Soft, non-tender, with normal bowel sounds. No distension or tympany. No guarding or rebound. No evidence of tenderness throughout. Back: No spinal tenderness. No costovertebral tenderness. Full range of motion. Skin: Warm, dry with normal turgor. Normal color with no rashes, no lesions, and no evidence of cellulitis. Neuro: Awake and alert, GCS 15, oriented to person, place, time, and situation. Cranial nerves II-XII grossly intact. Motor strength 5/5 in all extremities. Sensory grossly intact. Cerebellar exam normal. Normal gait. 17:20 Musculoskeletal/extremity: Extremities: grossly normal except: noted in the left quadriceps: pain, swelling, tenderness, ROM: limited active range of motion due to pain, in the left quadriceps, Circulation is intact in all extremities. Sensation intact. Weight bearing: can bear weight with assistance only. Vital Signs: 16:50 BP 97 / 54; Pulse 87; Resp 18; Pulse Ox 97% on R/A; aj1 17:50 BP 102 / 65; Pulse 88; Resp 18; Pulse Ox 97% on R/A; aj1 18:40 BP 99 / 60; Pulse 82; Resp 18; Pulse Ox 96% on R/A; aj1 MDM: 16:56 Patient medically screened. kb 17:20 Data reviewed: vital signs, nurses notes. Data interpreted: Pulse oximetry: on room air kb is 97 %. Interpretation: normal. 17:27 ED course: The RN and I lifted pt off of the floor and into a chair. Pt then stood up kb and walked around chair to stretcher, sat down and pulled legs up onto stretcher to lay down.. 18:13 Counseling: I had a detailed discussion with the patient and/or guardian regarding: the kb historical points, exam findings, and any diagnostic results supporting the discharge/admit diagnosis, radiology results, the need for outpatient follow up, a family practitioner, to return to the emergency department if symptoms worsen or persist or if there are any questions or concerns that arise at home. ED course: Pt's neighbor is at bedside and will take pt home. States she is also communicating with pt's son. Pt educated on diagnostic findings and instructed to take NSAIDS for pain, not to take more of her prescribed pain medications. . 08/06 17:02 Order name: CT Traumagram (Head C Spine CAP wo con); Complete Time: 18:13 kb 08/06 17:02 Order name: Femur Left XRAY; Complete Time: 17:59 kb Administered Medications: No medications were administered Disposition: 08/07 07:29 Co-signature as Attending Physician, Vick Barakat MD I agree with the assessment and kdr plan of care. Disposition: 08/06/19 18:16 Discharged to Home. Impression: Fall on same level from slipping, tripping and stumbling, Hematoma to left thigh. - Condition is Stable. - Discharge Instructions: Hematoma, [id number], Musculoskeletal Pain, Fall Prevention in the Home, [id number]. - Medication Reconciliation Form, Thank You Letter, Antibiotic Education, Prescription Opioid Use form. - Follow up: Emergency Department; When: As needed; Reason: Worsening of condition. Follow up: Private Physician; When: 2 - 3 days; Reason: Recheck today's complaints, Continuance of care, Re-evaluation by your physician. Signatures: Dispatcher [employer] EDMS Francisca Lopez, SEMAJ-C ANALYTICAL LAB TECHNICIAN-Cheri Galloway, RN RN aj1 Vick Barakat MD MD kdr Corrections: (The following items were deleted from the chart) 08/06 18:42 18:16 08/06/2019 18:16 Discharged to Home. Impression: Fall on same level from aj1 slipping, tripping and stumbling; Hematoma to left thigh. Condition is Stable. Forms are Medication Reconciliation Form, Thank You Letter, Antibiotic Education, Prescription Opioid Use. Follow up: Emergency Department; When: As needed; Reason: Worsening of condition. Follow up: Private Physician; When: 2 - 3 days; Reason: Recheck today's complaints, Continuance of care, Re-evaluation by your physician. kb
--- NOTE | 2019-08-06 18:17 | ER ---
Nurse's Notes [facility] Name: Kim Aldana Age: 59 yrs Sex: Female : 1960 Arrival Date: 08/06/2019 Time: 16:47 Bed 6 Private MD: Diagnosis: Fall on same level from slipping, tripping and stumbling;Hematoma to left thigh Presentation: 08/06 16:50 Presenting complaint: EMS states: Patient reports that she fell on July 29 and aj1 hit her leg on the coffee table, she thought it was fine, but later she noticed bruising and swelling to the left thigh. Patient was seen in this ER yesterday for the same pain and had X-Rays done, they did not see a fracture, diagnosed her with a hematoma and patient was discharged home. Patient states she was suppose to be given a Rx for Tylenol #3, but couldn't find it, and that codeine does not work for her. Patient appears drowsy, eyes remain closed even during conversation. Transition of care: patient was not received from another setting of care. Onset of symptoms was July 29, 2019. Risk Assessment: Do you want to hurt yourself or someone else? Patient reports no desire to harm self or others. Initial Sepsis Screen: Does the patient meet any 2 criteria? No. Patient's initial sepsis screen is negative. Does the patient have a suspected source of infection? No. Patient's initial sepsis screen is negative. Care prior to arrival: None. 16:50 Method Of Arrival: EMS: [facility] aj1 16:50 Acuity: CABRERA 4 aj1 Triage Assessment: 16:50 General: Appears in no apparent distress. Behavior is drowsy. Pain: Complains of pain aj1 in left leg. Historical: - Allergies: 17:06 Aspirin; aj1 17:06 Compazine; aj1 17:06 Methadone; aj1 17:06 Morphine; aj1 17:06 Neurontin; aj1 17:06 PENICILLINS; aj1 17:06 Phenergan; aj1 17:06 plastic tape; aj1 17:06 Suboxone; aj1 - Home Meds: 17:06 acyclovir 400 mg Oral tab 2 tabs daily [Active]; Albuterol Inhl [Active]; alprazolam 2 aj1 mg Oral tab twice a day [Active]; amitriptyline 75 mg Oral tab [Active]; biotin 5000 mcg Oral daily [Active]; calcium with viatmin D, 1 po daily [Active]; cyclobenzaprine 10 mg Oral tab 4 times daily [Active]; Estrace 0.01 twice weekly Oral [Active]; Fish Oil 1,000 mg Oral cap daily [Active]; gabapentin 300 mg Oral cap daily [Active]; levothyroxine 150 mcg tab once daily [Active]; Lyrica 100mg 2 po daily Oral [Active]; magnesium oxide 400 mg Oral cap daily [Active]; metoprolol tartrate 25 mg Oral tab once daily [Active]; minocycline 100 mg Oral cap 2 times per day [Active]; multivitamin Oral cap daily [Active]; potassium gluconate 595 mg (99 mg) Oral tab daily [Active]; prednisone 2.5 mg Oral tab once daily [Active]; Prilosec 20 mg Oral cpDR 2 times per day [Active]; Restasis ophthalmic [Active]; Sumatriptan Sub-Q [Active]; warfarin 4 mg Oral tab once daily [Active]; Zofran (as hydrochloride) 4 mg Oral tab 2 times per day [Active]; - PMHx: 17:06 arterial insuficiency; Back pain; cerebritis; chest pain; Chronic pain; dejenteritive aj1 joint disease; Dyspepsia; esophageal reflux; fatigue; hypersomnia; lumbar radiculitis; Lupus; menopause; osteomyelitis; Panic Attacks; pulmonary edema; Seizures; Tachycardia; TIA; venous insufficiency; - Immunization history:: Flu vaccine is up to date. - Social history:: Smoking status: Patient uses tobacco products, 1/3 PPD. - Ebola Screening: : Patient denies travel to an Ebola-affected area in the 21 days before illness onset. Screenin:50 Abuse screen: Denies threats or abuse. Denies injuries from another. aj1 16:50 Nutritional screening: No deficits noted. Tuberculosis screening: No symptoms or risk aj1 factors identified. 18:41 Fall Risk Fall in past 12 months (25 points). No secondary diagnosis (0 pts). No IV (0 aj1 pts). Ambulatory Aid- Crutches/Cane/Walker (15 pts). Gait- Impaired (20 pts.). Mental Status- Overestimates/Forgets Limitations (15 pts.). Total Cool Fall Scale indicates High Risk Score (45 or more points). As available patient and family educated on Fall Prevention Program and Strategies. Assessment: 16:50 General: Appears in no apparent distress. comfortable, Behavior is drowsy. Pain: aj1 Complains of pain in left leg. Neuro: Level of Consciousness is Patient is drowsy, responds to verbal stimuli but rarely opens eyes, even during conversation. Patient's story regarding her chief complaint and what happened ADMITTING MANAGER changes each time she tells the story. . Cardiovascular: Patient's skin is warm and dry. Respiratory: Airway is patent Respiratory effort is even, unlabored, Respiratory pattern is regular, symmetrical. GI: No signs and/or symptoms were reported involving the gastrointestinal system. : No signs and/or symptoms were reported regarding the genitourinary system. EENT: No signs and/or symptoms were reported regarding the EENT system. Derm: Bruising that is on chin, chest and left leg. Musculoskeletal: Range of motion: limited in left hip and left knee CRISTINA wrap noted to left thigh that patient states was placed in this ER yesterday. 16:55 Reassessment: Patient is asking when she is going to get something for pain, explained aj1 to patient that there are no pain medications ordered at this time, and that she is acting drowsy, and her blood pressure is low, which limits what we can give for pain. Patient states "Well I might as well not have come at all then". 17:06 Reassessment: Patient is laying on the floor of her ER room typing on her phone. aj1 Patient was asked what happened and states that she was rolling over and didn't realize that she was rolling off of the bed until she was on the ground. Patient reports that now she is having pain everywhere. Patient was assisted to chair and then back to bed. Patient is falling asleep in the chair, when asked to open her eyes patient states "Im just meditating on it" but eyes remain closed as patient is assisted back to bed. Once patient is back in bed she begins asking when we are going to give her "something strong" for pain. Explained to patient that because of her blood pressure and because she is already drowsy we cannot give her narcotic pain medication at this time. Patient states "I'm not drowsy" Explained to patient that she just accidentally rolled out of bed without realizing what she was doing. Now patient states that she did not accidentally roll out of bed, but that she was trying to grab the call light and accidentally fell out of bed. 17:10 Reassessment: Patient transported to CT via stretcher. aj1 18:05 Reassessment: Patient appears in no apparent distress at this time. No changes from aj1 previously documented assessment. Patient and/or family updated on plan of care and expected duration. Pain level reassessed. Patient's neighbor is at bedside. Vital Signs: 16:50 BP 97 / 54; Pulse 87; Resp 18; Pulse Ox 97% on R/A; aj1 17:50 BP 102 / 65; Pulse 88; Resp 18; Pulse Ox 97% on R/A; aj1 18:40 BP 99 / 60; Pulse 82; Resp 18; Pulse Ox 96% on R/A; aj1 ED Course: 16:47 Patient arrived in ED. em1 16:49 Cheri Gupta, RN is Primary Nurse. aj1 16:50 Arm band placed on. aj1 16:50 Patient has correct armband on for positive identification. Bed in low position. Call aj1 light in reach. 16:50 No provider procedures requiring assistance completed. aj1 16:53 Triage completed. aj1 16:55 Francisca Lopez FNP-C is [facility]. kb 16:55 Vick Barakat MD is Attending Physician. kb 17:44 Femur Left XRAY In Process Unspecified. EDMS 17:49 CT Traumagram (Head C Spine CAP wo con) In Process Unspecified. EDMS 18:41 Patient did not have IV access during this emergency room visit. aj1 Administered Medications: No medications were administered Outcome: 18:16 Discharge ordered by . kb 18:41 Discharged to home via wheelchair, with friend. aj1 18:41 Condition: good 18:41 Discharge instructions given to patient, friend, Instructed on discharge instructions, follow up and referral plans. Demonstrated understanding of instructions, follow-up care. 18:42 Patient left the ED. aj1 Signatures: Dispatcher [employer] EDMS Francisca Lopez FNP-C FNP-Ckb Johnson, Angela, RN RN aj1 Sai Seth em1
[2019-08-06 18:49] VITALS: BP 99/60; O2SAT 96
== END 2019-08-06 18:42 | disposition home or self-care (01) ==
LOC: ER 16:43
DX: S70.12XA Contusion of left thigh, initial encounter (principal); G40.909 Epilepsy, unspecified, not intractable, without status epilepticus; F41.0 Panic disorder [episodic paroxysmal anxiety]; W01.0XXA Fall on same level from slipping, tripping and stumbling without subsequent striking against object, initial encounter; Y93.01 Activity, walking, marching and hiking; Y92.009 Unspecified place in unspecified non-institutional (private) residence as the place of occurrence of the external cause; Z72.0 Tobacco use; Z79.01 Long term (current) use of anticoagulants; Z88.0 Allergy status to penicillin; Z88.1 Allergy status to other antibiotic agents; Z88.5 Allergy status to narcotic agent; Z88.8 Allergy status to other drugs, medicaments and biological substances; Z86.73 Personal history of transient ischemic attack (TIA), and cerebral infarction without residual deficits; Z91.048 Other nonmedicinal substance allergy status
CPT/HCPCS: 70450; 71250; 72125; 99283

== ENCOUNTER 2019-11-10 16:26 | Inpatient (IN) | payer OTHER ==
--- OUTSIDE RECORDS SUMMARY | 2019-11-10 16:30 | XMS REPORT ---
:1960 Author Organization [facility] t Address [address] [place] [address] [address] [place] [address] Care Team Providers Name Role Phone OMRANIAN Unavailable Unavailable Problems This patient has no known problems. Allergies, Adverse Reactions, Alerts This patient has no known allergies or adverse reactions. Medications This patient has no known medications. Results Test Description Test Time Test Comments Text Results Atomic Results Result Comments PROTHROMBIN TIME/INR 2019-01-17 06:03:00 Test Item Value Reference Range Comments PROTIME (BEAKER) (test code = 759) 14.0 seconds 11.9-14.2 INR (BEAKER) (test code = 370) 1.1 <=5.9 Effective 12/31/2018: PT Reference Range ChangeNew: 11.9-14.2 Previous: 11.7- 14.7RECOMMENDED COUMADIN/WARFARIN INR THERAPY RANGESSTANDARD DOSE: 2.0-3.0 Includes: PROPHYLAXIS for venous thrombosis, systemic embolization; TREATMENT for venous thrombosis and/or pulmonary embolus.HIGH RISK: Target INR is2.5-3.5 for patients wiht mechanical heart valves.While on warfarin.PROTHROMBIN TIME/INR 2019-01-16 06:24:00 Test Item Value Reference Range Comments PROTIME (BEAKER) (test code = 759) 13.2 seconds 11.9-14.2 INR (BEAKER) (test code = 370) 1.1 <=5.9 Effective 12/31/2018: PT Reference Range ChangeNew: 11.9-14.2 Previous: 11.7- 14.7RECOMMENDED COUMADIN/WARFARIN INR THERAPY RANGESSTANDARD DOSE: 2.0-3.0 Includes: PROPHYLAXIS for venous thrombosis, systemic embolization; TREATMENT for venous thrombosis and/or pulmonary embolus.HIGH RISK: Target INR is2.5-3.5 for patients wiht mechanical heart valves.While on warfarin.CBC W/PLT COUNT & AUTO [id number] 06:20:00 Test Item Value Reference Range Comments WHITE BLOOD CELL COUNT (BEAKER) (test code = 7.0 K/ L 3.5 -10.5 775) RED BLOOD CELL COUNT (BEAKER) (test code = 761) 3.72 M/ L 3.93-5.22 HEMOGLOBIN (BEAKER) (test code = 410) 10.4 GM/DL 11.2-15.7 HEMATOCRIT (BEAKER) (test code = 411) 33.0 % 34.1-44.9 MEAN CORPUSCULAR VOLUME (BEAKER) (test code = 88.7 fL 79 .4-94.8 753) MEAN CORPUSCULAR HEMOGLOBIN (BEAKER) (test code 28.0 pg 25.6-32.2 = 751) MEAN CORPUSCULAR HEMOGLOBIN CONC (BEAKER) (test 31.5 GM/DL 32.2-35.5 code = 752) RED CELL DISTRIBUTION WIDTH (BEAKER) (test code 15.8 % 11.7-14.4 = 412) PLATELET COUNT (BEAKER) (test code = 756) 388 K/CU MM 150-45 0 MEAN PLATELET VOLUME (BEAKER) (test code = 754) 10.5 fL 9.4-12.3 NUCLEATED RED BLOOD CELLS (BEAKER) (test code = 0 /100 WBC 0-0 413) NEUTROPHILS RELATIVE PERCENT (BEAKER) (test code 71 % = 429) LYMPHOCYTES RELATIVE PERCENT (BEAKER) (test code 22 % = 430) MONOCYTES RELATIVE PERCENT (BEAKER) (test code = 6 % 431) EOSINOPHILS RELATIVE PERCENT (BEAKER) (test code 0 % = 432) BASOPHILS RELATIVE PERCENT (BEAKER) (test code = 0 % 437) NEUTROPHILS ABSOLUTE COUNT (BEAKER) (test code = 4.93 K/ L 1.56-6.13 670) LYMPHOCYTES ABSOLUTE COUNT (BEAKER) (test code = 1.55 K/ L 1.18-3.74 414) MONOCYTES ABSOLUTE COUNT (BEAKER) (test code = 0.42 K/ L 0 .24-0.36 415) EOSINOPHILS ABSOLUTE COUNT (BEAKER) (test code = 0.00 K/ L 0.04-0.36 416) BASOPHILS ABSOLUTE COUNT (BEAKER) (test code = 0.01 K/ L 0 .01-0.08 417) IMMATURE GRANULOCYTES-RELATIVE PERCENT (BEAKER) 1 % 0-1 (test code = 2801) PROTHROMBIN TIME/[id number] 06:35:00 Test Item Value Reference Range Comments PROTIME (BEAKER) (test code = 759) 14.7 seconds 11.9-14.2 INR (BEAKER) (test code = 370) 1.2 <=5.9 Effective 12/31/2018: PT Reference Range ChangeNew: 11.9-14.2 Previous: 11.7- 14.7RECOMMENDED COUMADIN/WARFARIN INR THERAPY RANGESSTANDARD DOSE: 2.0-3.0 Includes: PROPHYLAXIS for venous thrombosis, systemic embolization; TREATMENT for venous thrombosis and/or pulmonary embolus.HIGH RISK: Target INR is2.5-3.5 for patients wiht mechanical heart valves.OCCULT BLOOD, [id number] 23:23:00 Test Item Value Reference Range Comments FECAL OCCULT BLOOD (BEAKER) (test code = 618) Negative Ne gative PROTHROMBIN TIME/[id number] 07:00:00 Test Item Value Reference Range Comments PROTIME (BEAKER) (test code = 759) 13.9 seconds 11.9-14.2 INR (BEAKER) (test code = 370) 1.1 <=5.9 Effective 12/31/2018: PT Reference Range ChangeNew: 11.9-14.2 Previous: 11.7- 14.7RECOMMENDED COUMADIN/WARFARIN INR THERAPY RANGESSTANDARD DOSE: 2.0-3.0 Includes: PROPHYLAXIS for venous thrombosis, systemic embolization; TREATMENT for venous thrombosis and/or pulmonary embolus.HIGH RISK: Target INR is2.5-3.5 for patients wiht mechanical heart valves.CBC W/PLT COUNT & AUTO [id number] 06:52:00 Test Item Value Reference Range Comments WHITE BLOOD CELL COUNT (BEAKER) (test code = 7.5 K/ L 3.5 -10.5 775) RED BLOOD CELL COUNT (BEAKER) (test code = 761) 3.86 M/ L 3.93-5.22 HEMOGLOBIN (BEAKER) (test code = 410) 10.7 GM/DL 11.2-15.7 HEMATOCRIT (BEAKER) (test code = 411) 33.6 % 34.1-44.9 MEAN CORPUSCULAR VOLUME (BEAKER) (test code = 87.0 fL 79 .4-94.8 753) MEAN CORPUSCULAR HEMOGLOBIN (BEAKER) (test code 27.7 pg 25.6-32.2 = 751) MEAN CORPUSCULAR HEMOGLOBIN CONC (BEAKER) (test 31.8 GM/DL 32.2-35.5 code = 752) RED CELL DISTRIBUTION WIDTH (BEAKER) (test code 14.8 % 11.7-14.4 = 412) PLATELET COUNT (BEAKER) (test code = 756) 383 K/CU MM 150-45 0 MEAN PLATELET VOLUME (BEAKER) (test code = 754) 9.8 fL 9.4-12.3 NUCLEATED RED BLOOD CELLS (BEAKER) (test code = 0 /100 WBC 0-0 413) NEUTROPHILS RELATIVE PERCENT (BEAKER) (test code 74 % = 429) LYMPHOCYTES RELATIVE PERCENT (BEAKER) (test code 19 % = 430) MONOCYTES RELATIVE PERCENT (BEAKER) (test code = 5 % 431) EOSINOPHILS RELATIVE PERCENT (BEAKER) (test code 0 % = 432) BASOPHILS RELATIVE PERCENT (BEAKER) (test code = 0 % 437) NEUTROPHILS ABSOLUTE COUNT (BEAKER) (test code = 5.58 K/ L 1.56-6.13 670) LYMPHOCYTES ABSOLUTE COUNT (BEAKER) (test code = 1.39 K/ L 1.18-3.74 414) MONOCYTES ABSOLUTE COUNT (BEAKER) (test code = 0.36 K/ L 0 .24-0.36 415) EOSINOPHILS ABSOLUTE COUNT (BEAKER) (test code = 0.00 K/ L 0.04-0.36 416) BASOPHILS ABSOLUTE COUNT (BEAKER) (test code = 0.02 K/ L 0 .01-0.08 417) IMMATURE GRANULOCYTES-RELATIVE PERCENT (BEAKER) 2 % 0-1 (test code = 2801) MYOCARD IMAGING, MULTI, PHARM, [id number] 16:05:00FINAL REPORT PROCEDURE: MYOCARDIAL PERFUSION SPECT IMAGING (Rest/Stress)CPT CODE: 58019 INDICATION: Elevated troponin CARDIOVASCULAR PROFILE:CAD History: NoneSymptoms: [...] obtained. Image quality is good. REST FINDINGS:HR: 93/minBP: 166/74 mmHgPrelim. EKG: Normal sinus rhythm.Perfusion: Mildly severity perfusion defects of the apical inferolateral wall segments.LV Volume: Normal.RV Volume: Normal. STRESS FINDINGS:HR: 110/min (68% of MPHR)BP: 158/50 mmHgPrelim. EKG: No ischemic changes.Symptoms: None (treatment not required).Perfusion: Moderate severity perfusion defects of apical inferolateral [...] MDReport Verified Date/Time: 01/12/2019 16:05:30 Reading Location: [address] Reading Room [id number] 08:57:00 Test Item Value Reference Range Comments THYROID STIMULATING HORMONE (BEAKER) (test code 1.50 uIU/mL 0.35-4.94 = 772) [id number] 08:56:00 Test Item Value Reference Range Comments T4 TOTAL (BEAKER) (test code = 895) 7.9 ug/dL 4.9-11.7 PROTHROMBIN TIME/[id number] 03:12:00 Test Item Value Reference Range Comments PROTIME (BEAKER) (test code = 759) 14.0 seconds 11.9-14.2 INR (BEAKER) (test code = 370) 1.1 <=5.9 Effective 12/31/2018: PT Reference Range ChangeNew: 11.9-14.2 Previous: 11.7- 14.7RECOMMENDED COUMADIN/WARFARIN INR THERAPY RANGESSTANDARD DOSE: 2.0-3.0 Includes: PROPHYLAXIS for venous thrombosis, systemic embolization; TREATMENT for venous thrombosis and/or pulmonary embolus.HIGH RISK: Target INR is2.5-3.5 for patients wiht mechanical heart valves.CBC (HEMOGRAM ONLY)2019-01-12 03:04:00 Test Item Value Reference Range Comments WHITE BLOOD CELL COUNT (BEAKER) (test code = 7.2 K/ L 3.5 -10.5 775) RED BLOOD CELL COUNT (BEAKER) (test code = 761) 3.46 M/ L 3.93-5.22 HEMOGLOBIN (BEAKER) (test code = 410) 9.7 GM/DL 11.2-15.7 HEMATOCRIT (BEAKER) (test code = 411) 30.0 % 34.1-44.9 MEAN CORPUSCULAR VOLUME (BEAKER) (test code = 86.7 fL 79 .4-94.8 753) MEAN CORPUSCULAR HEMOGLOBIN (BEAKER) (test code 28.0 pg 25.6-32.2 = 751) MEAN CORPUSCULAR HEMOGLOBIN CONC (BEAKER) (test 32.3 GM/DL 32.2-35.5 code = 752) RED CELL DISTRIBUTION WIDTH (BEAKER) (test code 14.6 % 11.7-14.4 = 412) PLATELET COUNT (BEAKER) (test code = 756) 345 K/CU MM 150-45 0 MEAN PLATELET VOLUME (BEAKER) (test code = 754) 9.8 fL 9.4-12.3 NUCLEATED RED BLOOD CELLS (BEAKER) (test code = 0 /100 WBC 0-0 413) CBC (HEMOGRAM ONLY)2019-01-11 15:42:00 Test Item Value Reference Range Comments WHITE BLOOD CELL COUNT (BEAKER) (test code = 7.5 K/ L 3.5 -10.5 775) RED BLOOD CELL COUNT (BEAKER) (test code = 761) 3.65 M/ L 3.93-5.22 HEMOGLOBIN (BEAKER) (test code = 410) 10.1 GM/DL 11.2-15.7 HEMATOCRIT (BEAKER) (test code = 411) 32.4 % 34.1-44.9 MEAN CORPUSCULAR VOLUME (BEAKER) (test code = 88.8 fL 79 .4-94.8 753) MEAN CORPUSCULAR HEMOGLOBIN (BEAKER) (test code 27.7 pg 25.6-32.2 = 751) MEAN CORPUSCULAR HEMOGLOBIN CONC (BEAKER) (test 31.2 GM/DL 32.2-35.5 code = 752) RED CELL DISTRIBUTION WIDTH (BEAKER) (test code 14.6 % 11.7-14.4 = 412) PLATELET COUNT (BEAKER) (test code = 756) 353 K/CU MM 150-45 0 MEAN PLATELET VOLUME (BEAKER) (test code = 754) 9.7 fL 9.4-12.3 NUCLEATED RED BLOOD CELLS (BEAKER) (test code = 0 /100 WBC 0-0 413) BASIC METABOLIC [id number] 14:05:00 Test Item Value Reference Range Comments SODIUM (BEAKER) (test 137 meq/L 136-145 code = 381) POTASSIUM (BEAKER) (test 4.1 meq/L 3.5-5.1 code = 379) CHLORIDE (BEAKER) (test 103 meq/L 98-107 code = 382) CO2 (BEAKER) (test code = 28 meq/L 22-29 355) BLOOD UREA NITROGEN 5 mg/dL 7-21 (BEAKER) (test code = 354) CREATININE (BEAKER) (test 0.68 mg/dL 0.57-1.25 code = 358) GLUCOSE RANDOM (BEAKER) 97 mg/dL 70-105 (test code = 652) CALCIUM (BEAKER) (test 7.9 mg/dL 8.4-10.2 code = 697) EGFR (BEAKER) (test code 89 mL/min/1.73 sq m EST IMATED GFR IS NOT = 1092) ACCURATE CREA TININE CLEARANCE IN PRE DICTING GLOMERULAR FILTR ATION RATE. ESTIMATED GFR IS NOT APPLICABLE F OR DIALYSIS PATIENT S. TROPONIN [id number] 09:07:00 Test Item Value Reference Range Comments TROPONIN I (BEAKER) (test code = 397) 0.06 ng/mL 0.00-0.03 Troponin I (TnI) levels [...] acidosis, acute neurological disease, and persistent tachyarrhythmia.TROPONIN [id number] 06:51:00 Test Item Value Reference Range Comments TROPONIN I (BEAKER) (test code = 397) 0.05 ng/mL 0.00-0.03 Troponin I (TnI) levels [...] acute neurological disease, and persistent tachyarrhythmia.BASIC METABOLIC [id number] 06:51:00 Test Item Value Reference Range Comments SODIUM (BEAKER) (test 139 meq/L 136-145 code = 381) POTASSIUM (BEAKER) (test 3.0 meq/L 3.5-5.1 code = 379) CHLORIDE (BEAKER) (test 102 meq/L 98-107 code = 382) CO2 (BEAKER) (test code = 29 meq/L 22-29 355) BLOOD UREA NITROGEN 6 mg/dL 7-21 (BEAKER) (test code = 354) CREATININE (BEAKER) (test 0.71 mg/dL 0.57-1.25 code = 358) GLUCOSE RANDOM (BEAKER) 118 mg/dL 70-105 (test code = 652) CALCIUM (BEAKER) (test 7.8 mg/dL 8.4-10.2 code = 697) EGFR (BEAKER) (test code 84 mL/min/1.73 sq m EST IMATED GFR IS NOT = 1092) ACCURATE CREA TININE CLEARANCE IN PRE DICTING GLOMERULAR FILTR ATION RATE. ESTIMATED GFR IS NOT APPLICABLE F OR DIALYSIS PATIENT S. [id number] 06:44:00 Test Item Value Reference Range Comments MAGNESIUM (BEAKER) (test code = 627) 1.8 mg/dL 1.6-2.6 PT/[id number] 04:26:00 Test Item Value Reference Range Comments PROTIME (BEAKER) (test code = 759) 14.9 seconds 11.9-14.2 INR (BEAKER) (test code = 370) 1.2 <=5.9 PARTIAL THROMBOPLASTIN TIME (BEAKER) (test code 90.9 seconds 22.5-36.0 = 760) Effective 12/31/2018: PT Reference Range ChangeNew: 11.9-14.2 Previous: 11.7- 14.7RECOMMENDED COUMADIN/WARFARIN INR THERAPY RANGESSTANDARD DOSE: 2.0-3.0 Includes: PROPHYLAXIS for venous thrombosis, systemic embolization; TREATMENT for venous thrombosis and/or pulmonary embolus.HIGH RISK: Target INR is2.5-3.5 for patients wiht mechanical heart valves.Per heparin sliding scalePer heparin sliding scaleHEMOGLOBIN AND [id number] 04:15:00 Test Item Value Reference Range Comments HEMOGLOBIN (BEAKER) (test code = 410) 9.5 GM/DL 11.2-15.7 HEMATOCRIT (BEAKER) (test code = 411) 30.2 % 34.1-44.9 TROPONIN [id number] 22:28:00 Test Item Value Reference Range Comments TROPONIN I (BEAKER) (test code = 397) 0.07 ng/mL 0.00-0.03 Troponin I (TnI) levels [...] failure, acidosis, acute neurological disease, and persistent tachyarrhythmia.PT/[id number] 22:15:00 Test Item Value Reference Range Comments PROTIME (BEAKER) (test code = 759) 15.0 seconds 11.9-14.2 INR (BEAKER) (test code = 370) 1.2 <=5.9 PARTIAL THROMBOPLASTIN TIME (BEAKER) (test code 38.3 seconds 22.5-36.0 = 760) Effective 12/31/2018: PT Reference Range ChangeNew: 11.9-14.2 Previous: 11.7- 14.7RECOMMENDED COUMADIN/WARFARIN INR THERAPY RANGESSTANDARD DOSE: 2.0-3.0 Includes: PROPHYLAXIS for venous thrombosis, systemic embolization; TREATMENT for venous thrombosis and/or pulmonary embolus.HIGH RISK: Target INR is2.5-3.5 for patients wiht mechanical heart valves.Per heparin sliding scalePer heparin sliding scaleRAD, ABDOMEN/KUB, 1 VIEW [id number] 18:44:00Reason for exam:->vomitingFINAL REPORT Abdomen dated January 10, 2019 Comment:Abdomen was examined in the supine frontal position. Air is seen in the small and large bowel without dilatation to suggest mechanical obstruction or ileus. No mass, pathological calcification, or free air is present. Bilateral hip replacements are seen. Impression: No mechanical obstruction or ileus. Signed: Savannah Blanco MDReport Verified Date/Time: 01/10/2019 18:44:41 Reading Location: [facility] B1 C013Y CT Body Reading Room [id number] 14:44:00 Test Item Value Reference Range Comments MAGNESIUM (BEAKER) (test code = 627) 1.6 mg/dL 1.6-2.6 BASIC METABOLIC [id number] 14:44:00 Test Item Value Reference Range Comments SODIUM (BEAKER) (test 140 meq/L 136-145 code = 381) POTASSIUM (BEAKER) (test 2.9 meq/L 3.5-5.1 code = 379) CHLORIDE (BEAKER) (test 105 meq/L 98-107 code = 382) CO2 (BEAKER) (test code = 28 meq/L 22-29 355) BLOOD UREA NITROGEN 7 mg/dL 7-21 (BEAKER) (test code = 354) CREATININE (BEAKER) (test 0.69 mg/dL 0.57-1.25 code = 358) GLUCOSE RANDOM (BEAKER) 84 mg/dL 70-105 (test code = 652) CALCIUM (BEAKER) (test 8.0 mg/dL 8.4-10.2 code = 697) EGFR (BEAKER) (test code 87 mL/min/1.73 sq m EST IMATED GFR IS NOT = 1092) ACCURATE CREA TININE CLEARANCE IN PRE DICTING GLOMERULAR FILTR ATION RATE. ESTIMATED GFR IS NOT APPLICABLE F OR DIALYSIS PATIENT S. TROPONIN [id number] 14:44:00 Test Item Value Reference Range Comments TROPONIN I (BEAKER) (test code = 397) 0.08 ng/mL 0.00-0.03 Troponin I (TnI) levels [...] and persistent tachyarrhythmia.CBC W/PLT COUNT & AUTO DIFFERENTIAL 2019-01-10 14:34:00 Test Item Value Reference Range Comments WHITE BLOOD CELL COUNT (BEAKER) (test code = 6.6 K/ L 3.5 -10.5 775) RED BLOOD CELL COUNT (BEAKER) (test code = 761) 3.38 M/ L 3.93-5.22 HEMOGLOBIN (BEAKER) (test code = 410) 9.4 GM/DL 11.2-15.7 HEMATOCRIT (BEAKER) (test code = 411) 30.2 % 34.1-44.9 MEAN CORPUSCULAR VOLUME (BEAKER) (test code = 89.3 fL 79 .4-94.8 753) MEAN CORPUSCULAR HEMOGLOBIN (BEAKER) (test code 27.8 pg 25.6-32.2 = 751) MEAN CORPUSCULAR HEMOGLOBIN CONC (BEAKER) (test 31.1 GM/DL 32.2-35.5 code = 752) RED CELL DISTRIBUTION WIDTH (BEAKER) (test code 15.0 % 11.7-14.4 = 412) PLATELET COUNT (BEAKER) (test code = 756) 288 K/CU MM 150-45 0 MEAN PLATELET VOLUME (BEAKER) (test code = 754) 10.5 fL 9.4-12.3 NUCLEATED RED BLOOD CELLS (BEAKER) (test code = 0 /100 WBC 0-0 413) NEUTROPHILS RELATIVE PERCENT (BEAKER) (test code 68 % = 429) LYMPHOCYTES RELATIVE PERCENT (BEAKER) (test code 24 % = 430) MONOCYTES RELATIVE PERCENT (BEAKER) (test code = 5 % 431) EOSINOPHILS RELATIVE PERCENT (BEAKER) (test code 0 % = 432) BASOPHILS RELATIVE PERCENT (BEAKER) (test code = 0 % 437) NEUTROPHILS ABSOLUTE COUNT (BEAKER) (test code = 4.42 K/ L 1.56-6.13 670) LYMPHOCYTES ABSOLUTE COUNT (BEAKER) (test code = 1.59 K/ L 1.18-3.74 414) MONOCYTES ABSOLUTE COUNT (BEAKER) (test code = 0.35 K/ L 0 .24-0.36 415) EOSINOPHILS ABSOLUTE COUNT (BEAKER) (test code = 0.00 K/ L 0.04-0.36 416) BASOPHILS ABSOLUTE COUNT (BEAKER) (test code = 0.02 K/ L 0 .01-0.08 417) IMMATURE GRANULOCYTES-RELATIVE PERCENT (BEAKER) 3 % 0-1 (test code = 2801) [id number] 13:25:00 Test Item Value Reference Range Comments AMYLASE (BEAKER) (test code = 349) 29 U/L 25-125 [id number] 13:25:00 Test Item Value Reference Range Comments LIPASE (BEAKER) (test code = 749) 16 U/L 8-78 [id number] 13:24:00 Test Item Value Reference Range Comments PARTIAL THROMBOPLASTIN TIME (BEAKER) (test code 41.1 seconds 22.5-36.0 = 760) 6 hours after starting heparin infusion and as indicated per sliding scale HEMOGLOBIN AND [id number] 13:10:00 Test Item Value Reference Range Comments HEMOGLOBIN (BEAKER) (test code = 410) 9.3 GM/DL 11.2-15.7 HEMATOCRIT (BEAKER) (test code = 411) 30.0 % 34.1-44.9 U/S, ABDOMINAL, [id number] 12:16:00Abdomen limited area? Add comment if clarification [...] the patient's pain identified. Signed: Daniel Lopez Verified Date/Time: 01/10/2019 12:16:23 Reading Location: [address] Consult Reading Room PT/[id number] 20:52:00 Test Item Value Reference Range Comments PROTIME (BEAKER) (test code = 759) 18.3 seconds 11.9-14.2 INR (BEAKER) (test code = 370) 1.6 <=5.9 PARTIAL THROMBOPLASTIN TIME (BEAKER) (test code 56.3 seconds 22.5-36.0 = 760) Effective 12/31/2018: PT Reference Range ChangeNew: 11.9-14.2 Previous: 11.7- 14.7RECOMMENDED COUMADIN/WARFARIN INR THERAPY RANGESSTANDARD DOSE: 2.0-3.0 Includes: PROPHYLAXIS for venous thrombosis, systemic embolization; TREATMENT for venous thrombosis and/or pulmonary embolus.HIGH RISK: Target INR is2.5-3.5 for patients wiht mechanical heart valves.HEMOGLOBIN AND [id number] 16:23:00 Test Item Value Reference Range Comments HEMOGLOBIN (BEAKER) (test code = 410) 9.4 GM/DL 11.2-15.7 HEMATOCRIT (BEAKER) (test code = 411) 29.9 % 34.1-44.9 PT/[id number] 07:42:00 Test Item Value Reference Range Comments PROTIME (BEAKER) (test code = 759) 19.1 seconds 11.9-14.2 INR (BEAKER) (test code = 370) 1.7 <=5.9 PARTIAL THROMBOPLASTIN TIME (BEAKER) (test 111.0 seconds 22.5- 36.0 code = 760) Effective 12/31/2018: PT Reference Range ChangeNew: 11.9-14.2 Previous: 11.7- 14.7RECOMMENDED COUMADIN/WARFARIN INR THERAPY RANGESSTANDARD DOSE: 2.0-3.0 Includes: PROPHYLAXIS for venous thrombosis, systemic embolization; TREATMENT for venous thrombosis and/or pulmonary embolus.HIGH RISK: Target INR is2.5-3.5 for patients wiht mechanical heart valves.[id number] 03:41:00 Test Item Value Reference Range Comments MAGNESIUM (BEAKER) (test code = 627) 1.7 mg/dL 1.6-2.6 BASIC METABOLIC [id number] 03:41:00 Test Item Value Reference Range Comments SODIUM (BEAKER) (test 140 meq/L 136-145 code = 381) POTASSIUM (BEAKER) (test 4.2 meq/L 3.5-5.1 code = 379) CHLORIDE (BEAKER) (test 106 meq/L 98-107 code = 382) CO2 (BEAKER) (test code = 29 meq/L 22-29 355) BLOOD UREA NITROGEN 7 mg/dL 7-21 (BEAKER) (test code = 354) CREATININE (BEAKER) (test 0.68 mg/dL 0.57-1.25 code = 358) GLUCOSE RANDOM (BEAKER) 114 mg/dL 70-105 (test code = 652) CALCIUM (BEAKER) (test 7.9 mg/dL 8.4-10.2 code = 697) EGFR (BEAKER) (test code 89 mL/min/1.73 sq m EST IMATED GFR IS NOT = 1092) ACCURATE CREA TININE CLEARANCE IN PRE DICTING GLOMERULAR FILTR ATION RATE. ESTIMATED GFR IS NOT APPLICABLE F OR DIALYSIS PATIENT S. PROTHROMBIN [id number] 03:35:00 Test Item Value Reference Range Comments PROTIME (BEAKER) (test code = 759) 19.6 seconds 11.9-14.2 INR (BEAKER) (test code = 370) 1.8 <=5.9 Effective 12/31/2018: PT Reference Range ChangeNew: 11.9-14.2 Previous: 11.7- 14.7RECOMMENDED COUMADIN/WARFARIN INR THERAPY RANGESSTANDARD DOSE: 2.0-3.0 Includes: PROPHYLAXIS for venous thrombosis, systemic embolization; TREATMENT for venous thrombosis and/or pulmonary embolus.HIGH RISK: Target INR is2.5-3.5 for patients wiht mechanical heart valves.HEMOGLOBIN AND [id number] 03:21:00 Test Item Value Reference Range Comments HEMOGLOBIN (BEAKER) (test code = 410) 8.8 GM/DL 11.2-15.7 HEMATOCRIT (BEAKER) (test code = 411) 27.9 % 34.1-44.9 PT/[id number] 23:57:00 Test Item Value Reference Range Comments PROTIME (BEAKER) (test code = 759) 19.1 seconds 11.9-14.2 INR (BEAKER) (test code = 370) 1.7 <=5.9 PARTIAL THROMBOPLASTIN TIME (BEAKER) (test code 84.3 seconds 22.5-36.0 = 760) Effective 12/31/2018: PT Reference Range ChangeNew: 11.9-14.2 Previous: 11.7- 14.7RECOMMENDED COUMADIN/WARFARIN INR THERAPY RANGESSTANDARD DOSE: 2.0-3.0 Includes: PROPHYLAXIS for venous thrombosis, systemic embolization; TREATMENT for venous thrombosis and/or pulmonary embolus.HIGH RISK: Target INR is2.5-3.5 for patients wiht mechanical heart valves.[id number] 22:20:00 Test Item Value Reference Range Comments PROTIME (BEAKER) (test code = 759) 19.3 seconds 11.9-14.2 INR (BEAKER) (test code = 370) 1.7 <=5.9 PARTIAL THROMBOPLASTIN TIME (BEAKER) (test 111.7 seconds 22.5- 36.0 code = 760) Effective 12/31/2018: PT Reference Range ChangeNew: 11.9-14.2 Previous: 11.7- 14.7RECOMMENDED COUMADIN/WARFARIN INR THERAPY RANGESSTANDARD DOSE: 2.0-3.0 Includes: PROPHYLAXIS for venous thrombosis, systemic embolization; TREATMENT for venous thrombosis and/or pulmonary embolus.HIGH RISK: Target INR is2.5-3.5 for patients wiht mechanical heart valves.Patient is on agartrobanPatient is on agartrobanHEMOGLOBIN AND [id number] 22:08:00 Test Item Value Reference Range Comments HEMOGLOBIN (BEAKER) (test code = 410) 9.6 GM/DL 11.2-15.7 HEMATOCRIT (BEAKER) (test code = 411) 30.5 % 34.1-44.9 HEMOGLOBIN AND [id number] 16:25:00 Test Item Value Reference Range Comments HEMOGLOBIN (BEAKER) (test code = 410) 8.7 GM/DL 11.2-15.7 HEMATOCRIT (BEAKER) (test code = 411) 27.5 % 34.1-44.9 CBC (HEMOGRAM ONLY)2019-01-08 16:25:00 Test Item Value Reference Range Comments WHITE BLOOD CELL COUNT (BEAKER) (test code = 5.7 K/ L 3.5 -10.5 775) RED BLOOD CELL COUNT (BEAKER) (test code = 761) 3.13 M/ L 3.93-5.22 HEMOGLOBIN (BEAKER) (test code = 410) 8.7 GM/DL 11.2-15.7 HEMATOCRIT (BEAKER) (test code = 411) 27.5 % 34.1-44.9 MEAN CORPUSCULAR VOLUME (BEAKER) (test code = 87.9 fL 79 .4-94.8 753) MEAN CORPUSCULAR HEMOGLOBIN (BEAKER) (test code 27.8 pg 25.6-32.2 = 751) MEAN CORPUSCULAR HEMOGLOBIN CONC (BEAKER) (test 31.6 GM/DL 32.2-35.5 code = 752) RED CELL DISTRIBUTION WIDTH (BEAKER) (test code 15.6 % 11.7-14.4 = 412) PLATELET COUNT (BEAKER) (test code = 756) 226 K/CU MM 150-45 0 MEAN PLATELET VOLUME (BEAKER) (test code = 754) 10.8 fL 9.4-12.3 NUCLEATED RED BLOOD CELLS (BEAKER) (test code = 0 /100 WBC 0-0 413) [id number] 15:07:00 Test Item Value Reference Range Comments PARTIAL THROMBOPLASTIN TIME (BEAKER) (test code 59.8 seconds 22.5-36.0 = 760) PROTHROMBIN [id number] 14:32:00 Test Item Value Reference Range Comments PROTIME (BEAKER) (test code = 759) 19.7 seconds 11.9-14.2 INR (BEAKER) (test code = 370) 1.8 <=5.9 Effective 12/31/2018: PT Reference Range ChangeNew: 11.9-14.2 Previous: 11.7- 14.7RECOMMENDED COUMADIN/WARFARIN INR THERAPY RANGESSTANDARD DOSE: 2.0-3.0 Includes: PROPHYLAXIS for venous thrombosis, systemic embolization; TREATMENT for venous thrombosis and/or pulmonary embolus.HIGH RISK: Target INR is2.5-3.5 for patients wiht mechanical heart valves.B-TYPE NATRIURETIC FACTOR (BNP) 2019-01-08 12:44:00 Test Item Value Reference Range Comments B-TYPE NATRIURETIC PEPTIDE (BEAKER) (test code = 526 pg/mL 0-100 700) [id number] 12:34:00 Test Item Value Reference Range Comments POTASSIUM (BEAKER) (test code = 379) 3.9 meq/L 3.5-5.1 [id number] 12:34:00 Test Item Value Reference Range Comments MAGNESIUM (BEAKER) (test code = 627) 2.0 mg/dL 1.6-2.6 [id number] 11:33:00 Test Item Value Reference Range Comments PROCALCITONIN (BEAKER) (test code = 3036) 0.05 ng/mL <0.05 SEPSIS RISK (ng/mL)Low: 0.05-0.50Intermediate: 0.51-2.00High: >=2.01LACTIC ACID, [id number] 10:31:00 Test Item Value Reference Range Comments LACTATE BLOOD VENOUS (2) (BEAKER) (test code = 0.7 mmol/L 0 .5-2.2 2872) HEMOGLOBIN AND [id number] 10:10:00 Test Item Value Reference Range Comments HEMOGLOBIN (BEAKER) (test code = 410) 8.3 GM/DL 11.2-15.7 HEMATOCRIT (BEAKER) (test code = 411) 26.2 % 34.1-44.9 BASIC METABOLIC [id number] 08:27:00 Test Item Value Reference Range Comments SODIUM (BEAKER) (test 139 meq/L 136-145 code = 381) POTASSIUM (BEAKER) (test 3.2 meq/L 3.5-5.1 code = 379) CHLORIDE (BEAKER) (test 105 meq/L 98-107 code = 382) CO2 (BEAKER) (test code = 28 meq/L 22-29 355) BLOOD UREA NITROGEN 8 mg/dL 7-21 (BEAKER) (test code = 354) CREATININE (BEAKER) (test 0.72 mg/dL 0.57-1.25 code = 358) GLUCOSE RANDOM (BEAKER) 91 mg/dL 70-105 (test code = 652) CALCIUM (BEAKER) (test 7.6 mg/dL 8.4-10.2 code = 697) EGFR (BEAKER) (test code 83 mL/min/1.73 sq m EST IMATED GFR IS NOT = 1092) ACCURATE CREA TININE CLEARANCE IN PRE DICTING GLOMERULAR FILTR ATION RATE. ESTIMATED GFR IS NOT APPLICABLE F OR DIALYSIS PATIENT S. RAD, CHEST, 1 VIEW, NON [id number] 08:17:00Reason for exam:->pulmonary edemaShould this be performed at the bedside?->YesFINAL REPORT Follow up Chest radiograph Clinical History: Pulmonary edemaComparison: January 07, 2019Views: One AP lordotic Chest [...] Impression:Decreased pulmonary vascular congestion and improved inspiratory ef fort. Signed: Inder Wilkseport Verified Date/Time: 01/08/2019 08:17:31 Reading Location: [facility] Reading Room [id number] 08:12:00 Test Item Value Reference Range Comments MAGNESIUM (BEAKER) (test code = 627) 2.0 mg/dL 1.6-2.6 [id number] 07:14:00 Test Item Value Reference Range Comments FERRITIN (BEAKER) (test code = 361) 346 ng/mL 5-275 IRON, TIBC, % SAT. (WITHOUT FERRITIN)2019-01-08 06:51:00 Test Item Value Reference Range Comments IRON (BEAKER) (test code = 547) 27.0 ug/dL 40.0-160.0 TOTAL IRON BINDING CAPACITY (BEAKER) (test code = 196 ug/dL 250-450 769) IRON % SATURATION (2) (BEAKER) (test code = 2590) 14 % 20-55 HEMOGLOBIN AND [id number] 06:25:00 Test Item Value Reference Range Comments HEMOGLOBIN (BEAKER) (test code = 410) 7.8 GM/DL 11.2-15.7 HEMATOCRIT (BEAKER) (test code = 411) 24.4 % 34.1-44.9 THROMBOELASTOGRAPH (TEG)2019-01-08 01:42:00 Test Item Value Reference Range Comments TEG ACTIVATED CLOTTING TIME (BEAKER) (test code 8.4 minutes 4.0-7.0 = 1407) TEG FIBRINOGEN ACTIVITY (BEAKER) (test code = 71.7 degrees 61 .0-73.0 1408) TEG PLT. AGGREGATION (BEAKER) (test code = 68.2 MM 55.0- 65.0 1409) TEG FIBRINOLYSIS (BEAKER) (test code = 1410) 0.0 % 0.0 -5.0 TGH ACTIVATED CLOTTING TIME (BEAKER) (test code 8.9 minutes 4.0-7.0 = 1411) TGH FIBRINOGEN ACTIVITY (BEAKER) (test code = 70.1 degrees 61 .0-73.0 1412) TGH PLT. AGGREGATION (BEAKER) (test code = 65.3 MM 55.0- 65.0 1413) TGH FIBRINOLYSIS (BEAKER) (test code = 1414) 0.0 % 0.0 -5.0 RAD, CHEST, 1 VIEW, NON [id number] 23:31:00Reason for exam:- >DyspneaShould this be performed at the bedside?->YesFINAL REPORT Chest one view. Clinical history: Dyspnea Comparison: None. Tech nique: A single frontal view of the chest was obtained. Findings/Impression:The patient is status post median sternotomy. There are cardiac valve prostheses.The cardiac silhouette is mildly enlarged. There is pulmonary interstitial edema. There is a trace right pleural effusion. There is no pneumothorax. The bony thorax is demineralized. There are degenerative changes of the right shoulder. Signed: Travis Aguila MDReport Verified Date/Time: 01/07/2019 23:31:03 Reading Location: [address] Reading Room [facility] 2019-01-07 22:56:00 Test Item Value Reference Range Comments TOTAL PROTEIN (BEAKER) 5.8 gm/dL 6.0-8.3 (test code = 770) ALBUMIN (BEAKER) (test 3.0 g/dL 3.5-5.0 code = 1145) ALKALINE PHOSPHATASE 56 U/L 40-150 (BEAKER) (test code = 346) BILIRUBIN TOTAL (BEAKER) 0.7 mg/dL 0.2-1.2 (test code = 377) SODIUM (BEAKER) (test code 139 meq/L 136-145 = 381) POTASSIUM (BEAKER) (test 3.4 meq/L 3.5-5.1 code = 379) CHLORIDE (BEAKER) (test 109 meq/L 98-107 code = 382) CO2 (BEAKER) (test code = 23 meq/L 22-29 355) BLOOD UREA NITROGEN 9 mg/dL 7-21 (BEAKER) (test code = 354) CREATININE (BEAKER) (test 0.75 mg/dL 0.57-1.25 code = 358) GLUCOSE RANDOM (BEAKER) 102 mg/dL 70-105 (test code = 652) CALCIUM (BEAKER) (test 7.1 mg/dL 8.4-10.2 code = 697) AST (SGOT) (BEAKER) (test 25 U/L 5-34 code = 353) ALT (SGPT) (BEAKER) (test 11 U/L 6-55 code = 347) EGFR (BEAKER) (test code = 79 mL/min/1.73 sq m E STIMATED GFR IS NOT 1092) ACCURATE CREA TININE CLEARANCE IN PRE DICTING GLOMERULAR FILTR ATION RATE. ESTIMATED GFR IS NOT APPLICABLE F OR DIALYSIS PATIENT S. [id number] 22:51:00 Test Item Value Reference Range Comments MAGNESIUM (BEAKER) (test code = 627) 1.3 mg/dL 1.6-2.6 [id number] 22:45:00 Test Item Value Reference Range Comments FIBRINOGEN LEVEL (BEAKER) (test code = 658) 509 mg/dl 225- 434 PROTHROMBIN TIME/[id number] 22:09:00 Test Item Value Reference Range Comments PROTIME (BEAKER) (test code = 759) 20.5 seconds 11.9-14.2 INR (BEAKER) (test code = 370) 1.9 <=5.9 Effective 12/31/2018: PT Reference Range ChangeNew: 11.9-14.2 Previous: 11.7- 14.7RECOMMENDED COUMADIN/WARFARIN INR THERAPY RANGESSTANDARD DOSE: 2.0-3.0 Includes: PROPHYLAXIS for venous thrombosis, systemic embolization; TREATMENT for venous thrombosis and/or pulmonary embolus.HIGH RISK: Target INR is2.5-3.5 for patients wiht mechanical heart valves.CBC W/PLT COUNT & AUTO [id number] 22:05:00 Test Item Value Reference Range Comments WHITE BLOOD CELL COUNT (BEAKER) (test code = 4.2 K/ L 3.5 -10.5 775) RED BLOOD CELL COUNT (BEAKER) (test code = 761) 2.41 M/ L 3.93-5.22 HEMOGLOBIN (BEAKER) (test code = 410) 6.7 GM/DL 11.2-15.7 HEMATOCRIT (BEAKER) (test code = 411) 21.4 % 34.1-44.9 MEAN CORPUSCULAR VOLUME (BEAKER) (test code = 88.8 fL 79 .4-94.8 753) MEAN CORPUSCULAR HEMOGLOBIN (BEAKER) (test code 27.8 pg 25.6-32.2 = 751) MEAN CORPUSCULAR HEMOGLOBIN CONC (BEAKER) (test 31.3 GM/DL 32.2-35.5 code = 752) RED CELL DISTRIBUTION WIDTH (BEAKER) (test code 14.2 % 11.7-14.4 = 412) PLATELET COUNT (BEAKER) (test code = 756) 208 K/CU MM 150-45 0 MEAN PLATELET VOLUME (BEAKER) (test code = 754) 10.2 fL 9.4-12.3 NUCLEATED RED BLOOD CELLS (BEAKER) (test code = 0 /100 WBC 0-0 413) NEUTROPHILS RELATIVE PERCENT (BEAKER) (test code 73 % = 429) LYMPHOCYTES RELATIVE PERCENT (BEAKER) (test code 19 % = 430) MONOCYTES RELATIVE PERCENT (BEAKER) (test code = 8 % 431) EOSINOPHILS RELATIVE PERCENT (BEAKER) (test code 0 % = 432) BASOPHILS RELATIVE PERCENT (BEAKER) (test code = 0 % 437) NEUTROPHILS ABSOLUTE COUNT (BEAKER) (test code = 3.08 K/ L 1.56-6.13 670) LYMPHOCYTES ABSOLUTE COUNT (BEAKER) (test code = 0.79 K/ L 1.18-3.74 414) MONOCYTES ABSOLUTE COUNT (BEAKER) (test code = 0.32 K/ L 0 .24-0.36 415) EOSINOPHILS ABSOLUTE COUNT (BEAKER) (test code = 0.00 K/ L 0.04-0.36 416) BASOPHILS ABSOLUTE COUNT (BEAKER) (test code = 0.00 K/ L 0 .01-0.08 417) IMMATURE GRANULOCYTES-RELATIVE PERCENT (BEAKER) 1 % 0-1 (test code = 2801)
[2019-11-10] MEDS ORDERED: LIDOCAINE 1% MPF 5 ML VIAL ONE (18:18)
[2019-11-10] MEDS ORDERED: ONDANSETRON 4 MG/2 ML VIAL ONE (18:18)
[2019-11-10] MEDS ORDERED: NA CHLORIDE 0.9% 1,000 ML ONE (18:18)
[2019-11-10] MEDS ORDERED: FENTANYL CITR 100 MCG/2 ML ONE (18:18)
[2019-11-10 18:26] LABS: Absolute Lymphocytes (CBC) 1.1 K/uL (0.7-4.9); Basophils % 0.2 % (0-1.3); Lymphocytes % 14.4 % (15.3-44.8); MPV 8.8 fL (7.6-11.3); RBC Red Blood Cell Count 3.25 M/uL (3.86-4.86)
[2019-11-10 18:29] LABS: Protime INR 3.56
[2019-11-10 18:35] LABS: Potassium 4.4 mmol/L (3.5-5.1)
--- NOTE | 2019-11-10 19:52 | RAD REPORT ---
EXAM DESCRIPTION: CT - Head C Spine Cap Glory Ayala - 11/10/2019 7:24 pm CLINICAL HISTORY: Head and neck injury with chest and abdominal pain status post fall. Head and neck pain . TECHNIQUE: Computed axial tomography of the head and cervical spine was obtained Computed axial tomography of the chest, abdomen and pelvis was obtained. 100 cc Isovue-300 was given intravenously coronal and sagittal reconstruction was performed. All CT scans are performed using dose optimization technique as appropriate and may include automated exposure control or mA/KV adjustment according to patient size. COMPARISON: CT August 2019 FINDINGS: An intracranial bleed is not seen. The ventricles are normal in caliber. An extra-axial fl uid collection is not noted. A cervical fracture is not seen. No dislocation is seen. A mediastinal hematoma is not noted. A pleural effusion is not present. A lung contusion is not seen. Gallstones. The liver, spleen, pancreas, adrenals, kidneys and bladder do not demonstrate a traumatic injury. 10 centimeter hematoma is present within the subcutaneous tissues of the anterolateral aspect of the right pelvis . Small area of increased density represents extravasation of contrast IMPRESSION: 1. No acute intracranial abnormality is seen 2. A cervical fracture is not visualized. If the patient continues have symptoms to suggest intracran ial/spinal cord pathology then MRI would be recommended. 3. No traumatic injury involving the chest 4. 10 centimeter hematoma is present within the subcutaneous tissues of the anterolateral aspect of t he right pelvis. Small area of active bleeding is present
--- NOTE | 2019-11-10 21:21 | EDPHYS ---
Physician Documentation [facility] Name: Kim Aldana Age: 59 yrs Sex: Female : 1960 Arrival Date: 11/10/2019 Time: 16:28 Bed 18 Private MD: ED Physician Branden Espino HPI: 11/09 21:41 This 59 yrs old Female presents to ER via Wheelchair with complaints of Fall kb Injury. 21:41 Details of fall: The patient fell from an upright position. Onset: The symptoms/episode kb began/occurred just prior to arrival. Associated injuries: The patient sustained injury to the head, laceration, 2 cm(s), of the lower lip, pain, anterior aspect of right shoulder, decreased range of motion, painful injury. Severity of symptoms: At their worst the symptoms were moderate, in the emergency department the symptoms are unchanged. The patient has experienced similar episodes in the past. The patient has not recently seen a physician. Pt reports she fell today causing laceration to lip. States she tripped and that is what caused her fall. Hematoma found on exam to right hip. Pt reports that happened 3 days ago when her dog pulled her chair over and she landed on right side. Historical: - Allergies: 16:36 Aspirin; hb 16:36 Compazine; hb 16:36 Methadone; hb 16:36 Morphine; hb 16:36 Neurontin; hb 16:36 PENICILLINS; hb 16:36 Phenergan; hb 16:36 plastic tape; hb 16:36 Suboxone; hb - Home Meds: 16:36 acyclovir 400 mg Oral tab 2 tabs daily [Active]; Albuterol Inhl [Active]; alprazolam 2 hb mg Oral tab twice a day [Active]; amitriptyline 75 mg Oral tab [Active]; biotin 5000 mcg Oral daily [Active]; Fish Oil 1,000 mg Oral cap daily [Active]; gabapentin 300 mg Oral cap daily [Active]; Estrace 0.01 twice weekly Oral [Active]; levothyroxine 150 mcg tab once daily [Active]; Lyrica 100mg 2 po daily Oral [Active]; magnesium oxide 400 mg Oral cap daily [Active]; metoprolol tartrate 25 mg Oral tab once daily [Active]; minocycline 100 mg Oral cap 2 times per day [Active]; multivitamin Oral cap daily [Active]; calcium with viatmin D, 1 po daily [Active]; potassium gluconate 595 mg (99 mg) Oral tab daily [Active]; prednisone 2.5 mg Oral tab once daily [Active]; Prilosec 20 mg Oral cpDR 2 times per day [Active]; Restasis ophthalmic [Active]; Sumatriptan Sub-Q [Active]; cyclobenzaprine 10 mg Oral tab 4 times daily [Active]; warfarin 4 mg Oral tab once daily [Active]; Zofran (as hydrochloride) 4 mg Oral tab 2 times per day [Active]; - PMHx: 16:36 Lupus; Panic Attacks; pulmonary edema; lumbar radiculitis; fatigue; Seizures; hb osteomyelitis; menopause; hypersomnia; esophageal reflux; Dyspepsia; venous insufficiency; dejenteritive joint disease; cerebritis; Back pain; arterial insuficiency; Chronic pain; chest pain; Tachycardia; TIA; - Immunization history:: Adult Immunizations up to date. - Social history:: Smoking status: Patient denies any tobacco usage or history of. - Immunization history: Last tetanus immunization: unknown. ROS: 21:40 Constitutional: Negative for fever, chills, and weight loss, ENT: Negative for injury, kb pain, and discharge, Neck: Negative for injury, pain, and swelling, Cardiovascular: Negative for chest pain, palpitations, and edema, Respiratory: Negative for shortness of breath, cough, wheezing, and pleuritic chest pain, Abdomen/GI: Negative for abdominal pain, nausea, vomiting, diarrhea, and constipation. 21:40 MS/extremity: Positive for decreased range of motion, pain, of the anterior aspect of right shoulder. 21:40 Skin: Positive for hematoma, laceration(s), of the lower lip. Exam: 21:38 Constitutional: This is a well developed, well nourished patient who is awake, alert, kb and in no acute distress. Neck: Trachea midline, no thyromegaly or masses palpated, and no cervical lymphadenopathy. Supple, full range of motion without nuchal rigidity, or vertebral point tenderness. No Meningismus. Chest/axilla: Normal chest wall appearance and motion. Nontender with no deformity. No lesions are appreciated. Cardiovascular: Regular rate and rhythm with a normal S1 and S2. No gallops, murmurs, or rubs. Normal PMI, no JVD. No pulse deficits. Respiratory: Lungs have equal breath sounds bilaterally, clear to auscultation and percussion. No rales, rhonchi or wheezes noted. No increased work of breathing, no retractions or nasal flaring. Abdomen/GI: Soft, non-tender, with normal bowel sounds. No distension or tympany. No guarding or rebound. No evidence of tenderness throughout. Neuro: Awake and alert, GCS 15, oriented to person, place, time, and situation. Cranial nerves II-XII grossly intact. Motor strength 5/5 in all extremities. Sensory grossly intact. Cerebellar exam normal. Normal gait. 21:38 Head/face: Noted is no obvious of injury or deformity except a laceration(s), that is superficial, 2 cm(s), of the lower lip. 21:38 Skin: injury, large hematoma to right hip area. 21:41 Musculoskeletal/extremity: Extremities: grossly normal except: noted in the anterior kb aspect of right shoulder: decreased ROM, pain, ROM: limited active range of motion due to pain, Circulation is intact in all extremities. Sensation intact. Weight bearing: able to fully bear weight. Vital Signs: 16:32 BP 111 / 62; Pulse 89; Resp 16; Temp 97.4; Pulse Ox 100% on R/A; Weight 70.31 kg; hb Height 5 ft. 6 in. (167.64 cm); Pain 10/10; 19:03 BP 89 / 47; Pulse 85; Resp 16; ll1 19:32 BP 95 / 45; Pulse 86; ll1 20:01 BP 107 / 36; Pulse 85; Resp 17; ll1 21:35 BP 113 / 57; Pulse 88; Resp 16; Pulse Ox 100% ; ll1 22:36 BP 101 / 35; Pulse 87; Resp 17; Pulse Ox 100% ; ll1 23:23 BP 92 / 41; Pulse 88; Resp 17; ll1 23:40 BP 111 / 69; Pulse 88; Resp 17; Pulse Ox 100% ; ll1 16:32 Body Mass Index 25.02 (70.31 kg, 167.64 cm) hb Laina Coma Score: 16:32 Eye Response: spontaneous(4). Verbal Response: oriented(5). Motor Response: obeys hb commands(6). Total: 15. Trauma Score (Adult): 16:32 Eye Response: spontaneous(1); Verbal Response: oriented(1); Motor Response: obeys hb commands(2); Systolic BP: > 89 mm Hg(4); Respiratory Rate: 10 to 29 per min(4); Laina Score: 15; Trauma Score: 12 Laceration: 21:38 Wound Repair of 2cm ( 0.8in ) subcutaneous laceration to lower lip. Irregularly kb shaped.. Distal neuro/vascular/tendon intact. Anesthesia: Local anesthetic administered with 1.5 mls of 1% lidocaine. Wound prep: Moderate cleansing, Wound irrigation. Skin closed with 4 5-0 Vicryl using simple sutures and sterile technique. Patient tolerated well. MDM: 17:19 Patient medically screened. kb 19:39 Data reviewed: vital signs, nurses notes. Data interpreted: Pulse oximetry: on room air kb is 100 %. Interpretation: normal. 20:31 ED course: Consulted with Dr. Valentine regarding moderate hematoma and supratherapeutic rn INR. He will consult on patient, agrees with ice to area, compression dressing, and holding coumadin. Will admit to Dr. Monzon for further care and hemoglobin/INR trend. Small subcutaneous bleed with hematoma, no sign of arterial injury, stable vitals 3 days s/p injury, anticipate healing with conservative measures. . 21:06 Counseling: I had a detailed discussion with the patient and/or guardian regarding: the kb historical points, exam findings, and any diagnostic results supporting the discharge/admit diagnosis, lab results, radiology results, the need for further work-up and treatment in the hospital. 22:22 ED course: Dr Monzon here to see pt in ER. After exam and speaking to Dr Valentine, he kb requests transfer of pt due to lack of interventional radiology at this facility. . 22:38 ED course: After reviewing images of CT, Dr Monzon agreed to keep pt here. Probability kb that IR will be needed is low. 11/09 17:52 Order name: CBC with Diff; Complete Time: 18:48 kb 11/09 17:52 Order name: Basic Metabolic Panel; Complete Time: 18:36 kb 11/09 17:52 Order name: Protime (+inr); Complete Time: 18:48 kb 11/09 17:52 Order name: Ptt, Activated; Complete Time: 18:48 kb 11/09 22:26 Order name: Type and Screen EDMS 11/09 22:28 Order name: BB Add On EDMS 11/09 17:52 Order name: CT Traumagram (Head C Spine CAP W Con); Complete Time: 20:02 kb 11/09 21:37 Order name: Shoulder Right (2 View) XRAY; Complete Time: 22:32 kb 11/10 05:04 Order name: CBC with Automated Diff EDMS 11/10 05:04 Order name: Protime (+INR) EDMS 11/10 05:05 Order name: PTT, Activated Partial Thromb EDMS 11/10 05:24 Order name: Comprehensive Metabolic Panel EDMS 11/10 05:24 Order name: Phosphorus EDMS 11/10 05:24 Order name: Magnesium EDMS 11/09 17:52 Order name: IV Start; Complete Time: 18:08 kb 11/09 17:52 Order name: Vicryl, Sutures; Complete Time: 21:54 kb 11/09 17:52 Order name: Dressing - Wound; Complete Time: 21:54 kb 11/09 17:52 Order name: Gloves, Sterile; Complete Time: 18:42 kb 11/09 17:52 Order name: Setup Suture Tray; Complete Time: 18:41 kb 11/09 22:27 Order name: CONS Physician Consult EDMS 11/09 22:27 Order name: CONS Physician Consult EDMS Administered Medications: 18:40 Drug: Zofran (Ondansetron) 4 mg Route: IVP; Site: right forearm; ll1 20:40 Follow up: Response: No adverse reaction; RASS: Alert and Calm (0) ll1 18:41 Drug: NS 0.9% 1000 ml Route: IV; Rate: 1000 ml; Site: right forearm; ll1 20:41 Follow up: IV Status: Completed infusion; IV Intake: 1000ml ll1 18:41 Drug: fentaNYL (PF) 25 mcg Route: IVP; Site: right forearm; ll1 20:40 Follow up: Response: No adverse reaction; RASS: Alert and Calm (0) ll1 21:35 Drug: fentaNYL (PF) 25 mcg {Note: RASS 0.} Route: IVP; Site: right forearm; ll1 22:58 Follow up: Response: No adverse reaction; RASS: Alert and Calm (0) ll1 22:00 Drug: Lidocaine (1 %) 1 vials {Note: used by SEMAJ Rosario for suture repair of the ll1 lip..} Volume: 5 ml; Route: Infiltration; 23:22 Follow up: Response: No adverse reaction ll1 Disposition: 11/10/19 21:20 Hospitalization ordered by Ajay Monzon for Inpatient Admission. Preliminary diagnosis are Supratherapeutic INR, Anemia, unspecified, Fall on same level from slipping, tripping and stumbling, Laceration without foreign body of lip, Hematoma of left hip/flank with small area of active bleeding. - Bed requested for Telemetry/MedSurg (Inpatient). - Status is Inpatient Admission. rv - Condition is Stable. - Problem is new. - Symptoms are unchanged. Addendum: 11/12/2019 09:55 Co-signature as Attending Physician, Branden Espino MD I agree with the assessment and c glover plan of care. Signatures: Dispatcher [employer] EDMS Francisca Lopez, SEMAJ-Peggy CHA-Branden Loco MD MD cha Nieto, Roman, MD MD rn Lasagna, Tonya, RN RN tl1 Zaira Engel RN RN hb Vicente, Ronaldo RN RN Marck Cantu RN RN ll1 Corrections: (The following items were deleted from the chart) 11/09 21:41 21:38 Constitutional: This is a well developed, well nourished patient who is awake, kb alert, and in no acute distress. Neck: Trachea midline, no thyromegaly or masses palpated, and no cervical lymphadenopathy. Supple, full range of motion without nuchal rigidity, or vertebral point tenderness. No Meningismus. Chest/axilla: Normal chest wall appearance and motion. Nontender with no deformity. No lesions are appreciated. Cardiovascular: Regular rate and rhythm with a normal S1 and S2. No gallops, murmurs, or rubs. Normal PMI, no JVD. No pulse deficits. Respiratory: Lungs have equal breath sounds bilaterally, clear to auscultation and percussion. No rales, rhonchi or wheezes noted. No increased work of breathing, no retractions or nasal flaring. Abdomen/GI: Soft, non-tender, with normal bowel sounds. No distension or tympany. No guarding or rebound. No evidence of tenderness throughout. Neuro: Awake and alert, GCS 15, oriented to person, place, time, and situation. Cranial nerves II-XII grossly intact. Motor strength 5/5 in all extremities. Sensory grossly intact. Cerebellar exam normal. Normal gait. kb 23:20 21:20 Hospitalization Ordered by Ajay Monzon MD for Inpatient Admission. Preliminary tl1 diagnosis is Supratherapeutic INR; Anemia, unspecified; Fall on same level from slipping, tripping and stumbling; Laceration without foreign body of lip; Hematoma of left hip/flank with small area of active bleeding. Bed requested for Telemetry/MedSurg (Inpatient). Status is Inpatient Admission. Condition is Stable. Problem is new. Symptoms are unchanged. kb 23:20 23:20 11/10/2019 21:20 Hospitalization Ordered by Ajay Monzon MD for Inpatient tl1 Admission. Preliminary diagnosis is Supratherapeutic INR; Anemia, unspecified; Fall on same level from slipping, tripping and stumbling; Laceration without foreign body of lip; Hematoma of left hip/flank with small area of active bleeding. Bed requested for Intensive Care Unit. Status is Inpatient Admission. Condition is Stable. Problem is new. Symptoms are unchanged. tl1 11/10 06:00 [id number] 23:20 11/10/2019 21:20 Hospitalization Ordered by Ajay Monzon MD for Inpatient tl1 Admission. Preliminary diagnosis is Supratherapeutic INR; Anemia, unspecified; Fall on same level from slipping, tripping and stumbling; Laceration without foreign body of lip; Hematoma of left hip/flank with small area of active bleeding. Bed requested for [facility] ER HOLD. Status is Inpatient Admission. Condition is Stable. Problem is new. Symptoms are unchanged. tl1 11/10 08:36 06:00 11/10/2019 21:20 Hospitalization Ordered by Ajay Monzon MD for Inpatient rv Admission. Preliminary diagnosis is Supratherapeutic INR; Anemia, unspecified; Fall on same level from slipping, tripping and stumbling; Laceration without foreign body of lip; Hematoma of left hip/flank with small area of active bleeding. Bed requested for Telemetry/MedSurg (Inpatient). Status is Inpatient Admission. Condition is Stable. Problem is new. Symptoms are unchanged. tl1
--- NOTE | 2019-11-10 21:21 | ER ---
Nurse's Notes [facility] Name: Kim Aldana Age: 59 yrs Sex: Female : 1960 Arrival Date: 11/10/2019 Time: 16:28 Bed 18 Private MD: Diagnosis: Supratherapeutic INR;Anemia, unspecified;Fall on same level from slipping, tripping and stumbling;Laceration without foreign body of lip;Hematoma of left hip/flank with small area of active bleeding Presentation: 11/09 16:30 Chief complaint: Fell out of scooter and landed on right side, c/o right shoulder pain hb and laceration on lower lip. Bleeding controlled. Care prior to arrival: None. Mechanism of Injury: Fall out of chair. Trauma event details: Injury occurred in the [facility], Injury occurred: at home. Injury occurred: November 10, 2019 Injury occurred at: 16:15. 16:30 Method Of Arrival: Wheelchair hb 16:30 Acuity: CABRERA 3 hb 16:32 Coronavirus screen: Proceed with normal triage. Ebola Screen: No symptoms or risks hb identified at this time. Initial Sepsis Screen: Does the patient meet any 2 criteria? No. Patient's initial sepsis screen is negative. Does the patient have a suspected source of infection? No. Patient's initial sepsis screen is negative. Risk Assessment: Do you want to hurt yourself or someone else? Patient reports no desire to harm self or others. Onset of symptoms was November 10, 2019. Trauma Activation: Not Applicable Physician: ED Physician; Name: ; Notified At: ; Arrived At: Physician: General Surgeon; Name: ; Notified At: ; Arrived At: Physician: Radiology; Name: ; Notified At: ; Arrived At: Physician: Respiratory; Name: ; Notified At: ; Arrived At: Physician: Lab; Name: ; Notified At: ; Arrived At: Historical: - Allergies: 16:36 Aspirin; hb 16:36 Compazine; hb 16:36 Methadone; hb 16:36 Morphine; hb 16:36 Neurontin; hb 16:36 PENICILLINS; hb 16:36 Phenergan; hb 16:36 plastic tape; hb 16:36 Suboxone; hb - Home Meds: 16:36 acyclovir 400 mg Oral tab 2 tabs daily [Active]; Albuterol Inhl [Active]; alprazolam 2 hb mg Oral tab twice a day [Active]; amitriptyline 75 mg Oral tab [Active]; biotin 5000 mcg Oral daily [Active]; Fish Oil 1,000 mg Oral cap daily [Active]; gabapentin 300 mg Oral cap daily [Active]; Estrace 0.01 twice weekly Oral [Active]; levothyroxine 150 mcg tab once daily [Active]; Lyrica 100mg 2 po daily Oral [Active]; magnesium oxide 400 mg Oral cap daily [Active]; metoprolol tartrate 25 mg Oral tab once daily [Active]; minocycline 100 mg Oral cap 2 times per day [Active]; multivitamin Oral cap daily [Active]; calcium with viatmin D, 1 po daily [Active]; potassium gluconate 595 mg (99 mg) Oral tab daily [Active]; prednisone 2.5 mg Oral tab once daily [Active]; Prilosec 20 mg Oral cpDR 2 times per day [Active]; Restasis ophthalmic [Active]; Sumatriptan Sub-Q [Active]; cyclobenzaprine 10 mg Oral tab 4 times daily [Active]; warfarin 4 mg Oral tab once daily [Active]; Zofran (as hydrochloride) 4 mg Oral tab 2 times per day [Active]; - PMHx: 16:36 Lupus; Panic Attacks; pulmonary edema; lumbar radiculitis; fatigue; Seizures; hb osteomyelitis; menopause; hypersomnia; esophageal reflux; Dyspepsia; venous insufficiency; dejenteritive joint disease; cerebritis; Back pain; arterial insuficiency; Chronic pain; chest pain; Tachycardia; TIA; - Immunization history:: Adult Immunizations up to date. - Social history:: Smoking status: Patient denies any tobacco usage or history of. - Immunization history: Last tetanus immunization: unknown. Screenin:08 Abuse screen: Denies threats or abuse. Nutritional screening: No deficits noted. ll1 Tuberculosis screening: No symptoms or risk factors identified. Fall Risk Fall in past 12 months (25 points). Ambulatory Aid- Crutches/Cane/Walker (15 pts). Gait- Weak (10 pts.). Total Cool Fall Scale indicates High Risk Score (45 or more points). Primary Survey: 17:10 NO uncontrolled hemorrhage observed. A: The patient is alert. Airway: patent. ll1 Breathing/Chest: Respiratory pattern: regular, Respiratory effort: spontaneous, unlabored, Breath sounds: clear, Chest inspection: symmetrical rise and fall of the chest. Circulation: Heart tones present. Pulses: palpable right radial artery and left radial artery. Skin color: pink. Disability Alert. Exposure/Environment: Obvious injury(ies) are noted at this time: warm blanket. 18:46 Reassessment Airway Airway Patent Breathing/Chest Respiratory pattern Regular ll1 Respiratory effort Spontaneous Unlabored Breath sounds Clear Chest inspection Symmetrical Circulation Heart tones Present Pulses Palpable Color [place] Temperature Warm Dry Disability Alert. Secondary Survey: 16:31 HEENT: Face Other small laceration on lower lip, minimal bleeding, contusion to chin. hb Gastrointestinal: No deficits noted. : No signs and/or symptoms were reported regarding the genitourinary system. Musculoskeletal: Reports right shoulder and hip pain. Assessment: 18:42 General: Appears uncomfortable, Behavior is calm, cooperative. Pain: Complains of pain ll1 in right shoulder/ lower lip Quality of pain is described as aching, Pain began suddenly. Neuro: No deficits noted. Cardiovascular: No deficits noted. Respiratory: No deficits noted. GI: No deficits noted. Derm: Bruising that is dark purple, on chin/mouth Reports laceration lower lip. Musculoskeletal: Circulation, motion, and sensation intact. Capillary refill < 3 seconds, Tenderness present in right shoulder Reports pain in right shoulder. Musculoskeletal: Parent/caregiver report the patient having Large extensive bruising to right hip and abdomen. Scooter fell onto her a few days ago. Multiple falls the past few days. Injury Description: Head injury sustained to lower lip fall off scooter. 19:40 Reassessment: No changes from previously documented assessment. Patient and/or family ll1 updated on plan of care and expected duration. Pain level reassessed. Patient is alert, oriented x 3, equal unlabored respirations, skin warm/dry/pink. 20:43 Reassessment: No changes from previously documented assessment. Patient and/or family ll1 updated on plan of care and expected duration. Pain level reassessed. Patient is alert, oriented x 3, equal unlabored respirations, skin warm/dry/pink. states she will not be admitted. Dr. Casey informed. 21:47 Reassessment: Patient appears in no apparent distress at this time. No changes from ll1 previously documented assessment. Patient and/or family updated on plan of care and expected duration. Pain level reassessed. Patient is alert, oriented x 3, equal unlabored respirations, skin warm/dry/pink. states she will be admitted. 22:45 Reassessment: Patient appears in no apparent distress at this time. No changes from ll1 previously documented assessment. Patient and/or family updated on plan of care and expected duration. Pain level reassessed. Patient is alert, oriented x 3, equal unlabored respirations, skin warm/dry/pink. 23:39 Reassessment: No changes from previously documented assessment. Patient and/or family ll1 updated on plan of care and expected duration. Pain level reassessed. Patient is alert, oriented x 3, equal unlabored respirations, skin warm/dry/pink. resting. 11/10 08:12 Reassessment: Patient appears in no apparent distress at this time. rv Vital Signs: 11/09 16:32 BP 111 / 62; Pulse 89; Resp 16; Temp 97.4; Pulse Ox 100% on R/A; Weight 70.31 kg; hb Height 5 ft. 6 in. (167.64 cm); Pain 10/10; 19:03 BP 89 / 47; Pulse 85; Resp 16; ll1 19:32 BP 95 / 45; Pulse 86; ll1 20:01 BP 107 / 36; Pulse 85; Resp 17; ll1 21:35 BP 113 / 57; Pulse 88; Resp 16; Pulse Ox 100% ; ll1 22:36 BP 101 / 35; Pulse 87; Resp 17; Pulse Ox 100% ; ll1 23:23 BP 92 / 41; Pulse 88; Resp 17; ll1 23:40 BP 111 / 69; Pulse 88; Resp 17; Pulse Ox 100% ; ll1 16:32 Body Mass Index 25.02 (70.31 kg, 167.64 cm) hb [place] Coma Score: 16:32 Eye Response: spontaneous(4). Verbal Response: oriented(5). Motor Response: obeys hb commands(6). Total: 15. Trauma Score (Adult): 16:32 Eye Response: spontaneous(1); Verbal Response: oriented(1); Motor Response: obeys hb commands(2); Systolic BP: > 89 mm Hg(4); Respiratory Rate: 10 to 29 per min(4); [place] Score: 15; Trauma Score: 12 ED Course: 16:28 Patient arrived in ED. as 16:32 Triage completed. hb 16:36 Arm band placed on. hb 17:02 Marck Pollard RN is Primary Nurse. ll1 17:17 Francisca Lopez FNP-C [facility]. kb 17:17 Branden Espino MD is Attending Physician. kb 17:50 Inserted saline lock: 22 gauge in right forearm, using aseptic technique. Blood ll1 collected. 18:45 No provider procedures requiring assistance completed. ll1 18:47 Patient has correct armband on for positive identification. Bed in low position. Call ll1 light in reach. Side rails up X 1. 18:47 Patient maintains SpO2 saturation greater than 95% on room air. Thermoregulation: warm ll1 blanket given to patient. 19:24 CT Traumagram (Head C Spine CAP W Con) In Process Unspecified. EDMS 20:30 Dressings: ice pack wrapped with kerlix. Applied to her RLQ/pelvic area. Wrapped with ll1 noemí wraps per Dr. Casey. Leave in place per Dr. Casey. 21:20 Ajay Monzon MD is Hospitalizing Provider. kb 22:14 Shoulder Right (2 View) XRAY In Process Unspecified. EDMS 22:57 Inserted saline lock: 20 gauge in left antecubital area, using aseptic technique. Blood ll1 collected. 11/10 00:13 Report given to JOSE Richard RN. ll1 00:33 IV is patent, with fluids infusing freely, with good blood return, Patient admitted, IV rv remains in place. Administered Medications: 11/09 18:40 Drug: Zofran (Ondansetron) 4 mg Route: IVP; Site: right forearm; ll1 20:40 Follow up: Response: No adverse reaction; RASS: Alert and Calm (0) ll1 18:41 Drug: NS 0.9% 1000 ml Route: IV; Rate: 1000 ml; Site: right forearm; ll1 20:41 Follow up: IV Status: Completed infusion; IV Intake: 1000ml ll1 18:41 Drug: fentaNYL (PF) 25 mcg Route: IVP; Site: right forearm; ll1 20:40 Follow up: Response: No adverse reaction; RASS: Alert and Calm (0) ll1 21:35 Drug: fentaNYL (PF) 25 mcg {Note: RASS 0.} Route: IVP; Site: right forearm; ll1 22:58 Follow up: Response: No adverse reaction; RASS: Alert and Calm (0) ll1 22:00 Drug: Lidocaine (1 %) 1 vials {Note: used by SEMAJ Rosario for suture repair of the ll1 lip..} Volume: 5 ml; Route: Infiltration; 23:22 Follow up: Response: No adverse reaction ll1 Intake: 20:41 IV: 1000ml; Total: 1000ml. ll1 21:47 PO: 20ml; IV: 1000ml; Total: 2020ml. ll1 Outcome: 21:20 Decision to Hospitalize by Provider. kb 21:46 Patient's length of stay in the Emergency Department was greater than 2 hours. Took 1 patient an hour to decide if she would be admitted, or sign out AMA.Patient's length of stay extended due to 04 00:32 Admitted to ER Hold. Please see [facility] for further documentation. rv Condition: stable Instructed on the need for admit. 08:36 Patient left the ED. rv Signatures: Dispatcher [employer] EDDE Francisca Lopez, RAMONAC SEMAJ-Lissa Iverson as Zaira Engel RN RN hb Vicente, Ronaldo, RN RN rv Lewis, Lynsay, RN RN ll1 Corrections: (The following items were deleted from the chart) 11/09 17:51 16:30 Acuity: CABRERA 4 hb hb
[2019-11-10] MEDS ORDERED: ONDANSETRON 4 MG/2 ML VIAL IV PRN (22:11)
[2019-11-10] MEDS ORDERED: VITAMIN K (ADULT) 10 MG/ML SQ STA (22:26)
--- NOTE | 2019-11-10 22:29 | RAD REPORT ---
EXAM DESCRIPTION: RAD - Shoulder Right 2 View - 11/10/2019 10:14 pm CLINICAL HISTORY: Right shoulder pain FINDINGS: Marked osteoarthritis involves the glenohumeral joint. Osteoporosis No fracture or dislocation seen
[2019-11-11] MEDS ORDERED: VITAMIN K (ADULT) 10 MG/ML ONE (00:56)
[2019-11-11] MEDS ORDERED: NA CHLORIDE 0.9% 1,000 ML ONE (00:57)
[2019-11-11] MEDS ORDERED: NA CHLORIDE 0.9% 250 ML ONE (00:57)
[2019-11-11] MEDS: NA CHLORIDE 0.9% 1,000 ML IV SCH ×2 (01:13→10:26)
[2019-11-11] MEDS ORDERED: ACETAMINOPHEN 500 MG TAB ONE (01:41)
[2019-11-11 01:56] VITALS: BMI 25.0
[2019-11-11] MEDS: ACETAMINOPHEN 500 MG TAB PO PRN ×2 (02:16→10:26)
[2019-11-11 05:01] LABS: Absolute Lymphocytes (CBC) 1.1 K/uL (0.7-4.9); Basophils % 0.2 % (0-1.3); Hematocrit 28.2 % (36.0-45.0); Lymphocytes % 20.2 % (15.3-44.8); MPV 8.7 fL (7.6-11.3); RBC Red Blood Cell Count 3.45 M/uL (3.86-4.86)
[2019-11-11 05:03] LABS: Protime INR 3.62
[2019-11-11 05:19] LABS: Albumin 2.5 g/dL (3.4-5.0); Bilirubin Total 0.6 mg/dL (0.2-1.0); Magnesium 1.9 mg/dL (1.8-2.4); Phosphorus 3.2 mg/dL (2.5-4.9); Potassium 3.8 mmol/L (3.5-5.1)
[2019-11-11] MEDS ORDERED: POTASSIUM CL SA 10 MEQ TAB PO ONE ×3 (05:45→17:00)
[2019-11-11] MEDS ORDERED: VITAMIN K (ADULT) 10 MG/ML SQ SCH (08:00)
--- NOTE | 2019-11-11 09:36 | P.HP ---
Certification for Inpatient Patient admitted to: Inpatient With expected LOS: >2 Midnights Patient will require the following post-hospital care: None Practitioner: I am a practitioner with admitting privileges, knowledge of patient current condition, hospital course, and medical plan of care. Services: Services provided to patient in accordance with Admission requirements found in Title 42 Section 412.3 of the Code of Federal Regulations Patient History Date of Service: 11/10/19 Reason for admission: Status post fall with large right hip & perineal hematoma History of Present Illness: Patient is a 59-year-old female came to the hospital with pain in the right hip region. She had fallen which she does repeatedly. She has had an aortic valve and a mitral valve repair. Patient was started on anti coagulation. Patient has been on Coumadin and INR was elevated. Patient had an INR of 3.56. Patient fell 3 days ago and has fallen once again today. She will be admitted to the hospital because there is some active bleeding in the right hip. We put compression in that region as well as ice packs. Patient will be admitted to the hospital for further evaluation. Patient will get 2 units of packed red blood cells. Will give patient some vitamin K after speaking with Cardiology. Patient will be monitored very closely while in the hospital system. We will get case management to see the patient as well because high risk of possibly exsanguinating if she continues to fall. Patient does have a history of autoimmune diseases including lupus. Allergies hydromorphone HCl [From Dilaudid] Allergy (Verified 04/03/17 21:14) Itching/Hives/Rash Penicillins Allergy (Verified 04/03/17 21:14) Itching/Hives/Rash prochlorperazine [From Compazine] Allergy (Verified 04/03/17 21:14) Itching/Hives/Rash prochlorperazine edisylate [From Compazine] Allergy (Verified 04/03/17 21:14) Itching/Hives/Rash prochlorperazine maleate [From Compazine] Allergy (Verified 04/03/17 21:14) Itching/Hives/Rash promethazine [From Phenergan] Allergy (Verified 04/03/17 21:14) Unknown promethazine HCl [From Phenergan] Allergy (Verified 04/03/17 21:14) Itching/Hives/Rash plastic tape Allergy (Uncoded 04/03/17 21:14) Unknown Tape Allergy (Uncoded 04/03/17 21:14) Unknown Home Medications: Alprazolam [Xanax] 2 mg PO TID 12/07/13 Amitriptyline [Elavil*] 75 mg PO BEDTIME 12/07/13 Omeprazole [Prilosec] 20 mg PO BID 12/07/13 predniSONE [Prednisone*] 2.5 mg PO DAILY 12/07/13 Acyclovir 400 mg PO M,W,F 09/11/15 Calcium Carbonate/Vitamin D3 [Calcium 600 + D Tablet] 1,200 mg PO DAILY 09/11/15 Cyclobenzaprine [Flexeril*] 10 mg PO TID 09/11/15 Levothyroxine Sodium 150 mcg PO DAILY 09/11/15 Metoprolol Tartrate [Lopressor*] 50 mg PO DAILY 09/11/15 Cyclosporine [Restasis] 1 drop EACH EYE DAILY 08/01/16 Estradiol [Estrace] 0.5 mg PO M,W,F 08/01/16 Gabapentin [Gralise] 400 mg PO BID 08/01/16 Warfarin Sodium 4 mg PO DAILY 04/03/17 Sumatriptan [Imitrex*] 50 mg PO BID PRN 04/13/17 Collagenase [Santyl Ointment*] 1 appl TOP DAILY #1 tube 04/15/17 Amitriptyline HCl 25 mg PO BID 10/14/19 Magnesium Oxide [Mag 0X Tab] 400 mg PO DAILY 10/14/19 Ondansetron [Zofran] 4 mg PO DAILY 10/14/19 Tramadol HCl [Ultram] 50 mg PO Q6HP PRN 10/14/19 - Past Medical/Surgical History Diabetic: No -: SEIZURE DISORDER -: HEART DISEASE AORTIC AND MITRAL VALVE REPLACED -: neuropathy -: osteoarthritis -: Thyroid disease -: Lupus -: Tod hip replacement -: right knee replacement -: amputation of toes left foot -: Bilateral HIP REPLACED -: RIGHT KNEE REPLACED -: MITRAL AORTIC VALVE REPLACED -: tubal ligation -: Colon sx -: Partial left foot removed - Family History Sister Medical History: Heart disease - Social History Smoking Status: Current every day smoker Alcohol use: No CD- Drugs: No Place of Residence: Home Review of Systems 10-point ROS is otherwise unremarkable Physical Examination - Vital Signs Temperature: 99 F Blood Pressure: 126/95 Pulse: 92 Respirations: 18 Pulse Ox (%): 97 - Physical Exam General: Alert, In no apparent distress, Oriented x3, Other (Hematoma to the ch in) HEENT: PERRLA, Mucous membr. moist/pink, Other (Patient appears to be very pale), EOMI, Sclerae nonicteric Neck: Supple, 2+ carotid pulse no bruit, No LAD, Without JVD or thyroid abnormality Respiratory: Clear to auscultation bilaterally, Normal air movement Cardiovascular: Regular rate/rhythm, Normal S1 S2, No murmurs Gastrointestinal: Normal bowel sounds, Soft and benign, Non-distended, No tenderness Musculoskeletal: No clubbing, No swelling, No tenderness Integumentary: Other (Right pelvic hematoma) Neurological: Normal speech, Normal tone, Sensation intact, Cranial nerves 3-12 intact, Normal affect, Abnormal gait, Abnormal strength Lymphatics: No axilla or inguinal lymphadenopathy - Studies Laboratory Data (last 24 hrs) 11/10/19 18:00: PT 41.0 H, INR 3.56, APTT 61.7 H 11/10/19 18:00: Sodium 135 L, Potassium 4.4, BUN 12, Creatinine 0.89, Glucose 99 11/10/19 18:00: WBC 7.3, Hgb 8.6 L, Hct 26.0 L, Plt Count 226 Assessment & Plan - Problems (Diagnosis) (1) Hypotensive episode Current Visit: Yes Status: Acute (2) Acute blood loss anemia Current Visit: Yes Status: Acute (3) Status post fall Current Visit: Yes Status: Acute (4) Hip hematoma, right Onset Date: 04/04/17 Current Visit: No Status: Acute Qualifiers: Encounter type: initial encounter Qualified Code(s): S70.01XA - Contusion of right hip, initial encounter (5) H/O mechanical aortic valve replacement Onset Date: 04/05/17 Current Visit: No Status: Chronic (6) Hypothyroid Onset Date: 04/05/17 Current Visit: No Status: Chronic Qualifiers: Hypothyroidism type: unspecified Qualified Code(s): E03.9 - Hypothyroidism, unspecified (7) Neuropathy Onset Date: 04/05/17 Current Visit: No Status: Chronic (8) Systemic lupus Onset Date: 04/05/17 Current Visit: No Status: Chronic Qualifiers: Systemic lupus erythematosus type: unspecified Systemic lupus erythematosus organ involvement: unspecified Qualified Code(s): M32.9 - Systemic lupus erythematosus, unspecified (9) Tobacco abuse Current Visit: No Status: Chronic (10) History of mitral valve replacement with mechanical valve Current Visit: Yes Status: Acute - Plan Plan: 1. Transfuse 2 units of packed red blood cells 2. Vitamin K subcu 3. Monitor hemodynamics closely 4. Monitor INR 5. General surgery and cardiology consultation 6. Social work consultation 7. GI and DVT prophylaxis Discharge Plan: Home Plan to discharge in: Greater than 2 days - Advance Directives Does patient have a Living Will: No Does patient have a Durable POA for Healthcare: No - Code Status/Comfort Care Code Status Assessed: Yes Code Status: Full Code Critical Care: No Time Spent Managing PTS Care (In Minutes): 40
--- NOTE | 2019-11-11 10:04 | CON ---
Date of Consultation: 11/10/2019 Reason For Consultation: Right hip hematoma. History Of Present Illness: Patient is a 59-year-old female with multiple medical problems, on antic oagulation for artificial aortic and mitral valve for 20 years, presenting after a fall with a hemato ma on the right hip. CT of the abdomen and pelvis was done. In the subcutaneous tissues, there appe ared to be a small area that may be active extravasation of blood was seen. Her INR was markedly josie vated, greater than 4. She has had similar episodes in the past where INR was very high and she fell . She is on chronic pain management and she had a small laceration to her lip. She is awake and cindy rt. No chest pain. No shortness of breath. No sore throat, runny nose, cough, headaches, or dizzin ess. No fever or chills. She is complaining of some mild discomfort in the right hip. Review of Systems: Otherwise unremarkable. Past Medical History: Significant for lupus, pulmonary edema, lumbar radiculitis, fatigue, seizures, dyspepsia, DJD, back pain, valvular disease of the heart. Past Surgical History: Significant for replacement of the aortic and mitral valves. Allergies: REVIEWED. THERE ARE MULTIPLE INCLUDING ASPIRIN, COMPAZINE, METHADONE, MORPHINE, NEURONTI N, PENICILLIN, AND PHENERGAN. Family History: Noncontributory. Social History: Patient does not smoke. Denies drinking. Physical Examination: Vital Signs: Currently stable. She is afebrile. She did receive 1 unit of blood last night. [place] rature is 99. General: Awake and alert. Head and Neck: Bruising noted on the lips and the shoulder. No neck masses. No JVD. Throat clear. Neck supple. Chest: Clear. Heart: S1, S2. Abdomen: Soft. Extremities: Right great toe has a wound, chronic ulcer that has been treated by Dr. Armstrong. There i s no sign of infection. There is a small opening. On the right hip region, right pelvis region, the re is approximately a 15 x 20 area of ecchymosis and swelling, is not pulsating. There was a pressur e dressing on the area with Jose Guadalupe and ice pack, which has melted. Laboratory Data: Prior to the transfusion, her H and H were 8.6 and 26.0. She was given 1 unit, cur rently is 9.3 and 28.2, platelets are 180. Her INR on admission was greater than 4, currently is 3.6 2. She was given some vitamin K last night. Her electrolytes were reviewed. CT of the abdomen and pelvis reviewed with the radiologist, essentially shows a 10 cm hematoma present within the subcutane ous tissue of the anterolateral aspect of the right pelvis, small area of active bleeding is present. Assessment: 59-year-old female with multiple medical problems, right hip hematoma, right great toe w ound, anticoagulation for valve disease, and history of falls. Recommendations: There is no need for any surgical intervention. With regard to the hematoma, I franky coffey recommend pressure dressing and ice pack as ordered. Evaluate the H and H and once she is stabili zed, she can be discharged. My bigger concern is why she is falling and is she in a safe place that she has fell before, consideration should be given to evaluation of living conditions as well as [facility] halfway facility consultation. We will let Dr. Angel determine the anticoagulation as she does need it for her valve, but if she continues to fall, she is very high risk for a bad outcom e and this plan of care was discussed with the patient as well as Dr. Monzon. We will follow the patient while in the hospital. ANU/GERARDO Voice ID: [id number] Report ID: [id number]
[2019-11-11 11:08] LABS: Absolute Lymphocytes (CBC) 0.9 K/uL (0.7-4.9); Basophils % 0.2 % (0-1.3); Lymphocytes % 18.7 % (15.3-44.8); MPV 8.7 fL (7.6-11.3); RBC Red Blood Cell Count 3.65 M/uL (3.86-4.86)
[2019-11-11 11:48] LABS: Folic Acid, (Folate) > 20.0 ng/mL (3.1-17.5); Magnesium 1.9 mg/dL (1.8-2.4)
[2019-11-11] MEDS ORDERED: CYANOCOBALAMIN 1000MCG/ML INJ IM ONE ×2 (12:18→15:00)
--- NOTE | 2019-11-11 13:48 | CON ---
Date of Consultation: 11/11/2019 Ms. Aldana is a 59-year-old white woman. She was admitted to Dr. Monzon on 11/10/2019. I saw the patie nt on 11/11/2019. Reason For Consultation: Bleeding secondary to Coumadin therapy. History Of Present Illness: Ms. Aldana is a 59-year-old white woman. She has a history of lupus. Sh tina has a history of mechanical aortic valve replacement and mechanical mitral valve replacement for ma ny years now. She has a history of seizure disorder, TIA, and peripheral arterial disease. She has been maintaining Coumadin at 4 mg for many years now. Her last echocardiogram in 2017 showed normall y functioning aortic valve and mitral valve mechanical prosthesis with a normal ejection fraction. S he came in after a fall. She has a hip hematoma. Hemoglobin was 8 and she received 2 units of blood transfusion, now with 9.3. Her INR was 3.62. She is normotensive at 126/95. No cardiac complaint. Denied any syncope. Allergies: SHE IS ALLERGIC TO COMPAZINE, PENICILLIN, MORPHINE, AND ASPIRIN. Review of Systems: Negative. Social History: Negative. Family History: Negative. Medications: At home include acyclovir, Coumadin, Xanax, Elavil, Imitrex, Flexeril, Synthroid, metop rolol, and Prilosec. Physical Examination: Vital Signs: Stable. She was afebrile. General: She was in no acute distress. She was in sinus rhythm. HEENT: Negative. Neck: Supple with no bruit. Chest: Clear. Cardiac: Revealed normal sinus rhythm with crisp aortic valve, mechanical prosthesis held. No regur gitation, no rubs, no gallops. Abdomen: Benign. Extremities: Revealed no clubbing, cyanosis, or edema with a hematoma on the right hip. Diagnostic Data: As stated earlier. Impression And Plan: 1.Hematoma secondary to a fall secondary to Coumadin therapy with elevated INR of 3.62. The patient already received blood products. She received vitamin K 2.5 mg subcu. We are awaiting the INR. To day, hemoglobin is 9.3. She is stable hemodynamically. Does not appear to have any more bleeding. The issue with Ms. Aldana is that we cannot keep her INR below 2.5 because of her mechanical valve. I f her INR drops below 2.5, we will need to give her Lovenox until her INR is adequate. I will contin ue to follow her. 2.Her other problems seem to be stable at this point. TRENT Voice ID: [id number] Report ID: [id number]
[2019-11-11] MEDS: SOD FERRIC GLUC COMPLX/SUCROSE 125 MG in NA CHLORIDE 0.9% 100 ML IV SCH (14:46)
[2019-11-11 16:13] LABS: Absolute Lymphocytes (CBC) 0.9 K/uL (0.7-4.9); Basophils % 0.2 % (0-1.3); Hematocrit 28.3 % (36.0-45.0); Lymphocytes % 21.1 % (15.3-44.8); MPV 8.4 fL (7.6-11.3); RBC Red Blood Cell Count 3.49 M/uL (3.86-4.86)
[2019-11-11 16:25] LABS: Potassium 3.9 mmol/L (3.5-5.1)
[2019-11-11] MEDS: PANTOPRAZOLE 40MG TABLET PO SCH (16:56)
[2019-11-11] MEDS: FENTANYL CITR 100 MCG/2 ML IV PRN ×2 (17:07→20:54)
[2019-11-11] MEDS: ALPRAZOLAM 1 MG TABLET PO SCH (20:53)
[2019-11-11] MEDS: ACYCLOVIR 400 MG TABLET PO SCH (20:53)
[2019-11-11] MEDS ORDERED: ACYCLOVIR 200 MG PO SCH (21:00)
[2019-11-11] MEDS ORDERED: HOME MED 1 EA UNK (Omeprazole [Prilosec] 40 MG) PO SCH (21:00)
[2019-11-11] MEDS ORDERED: HOME MED 1 EA UNK (Alprazolam [Alprazolam] 2 MG) PO SCH (21:00)
--- NOTE | 2019-11-12 00:32 | P.PN ---
Subjective Date of Service: 11/11/19 Clinically doing well. She wanted to go home. Spoke with her about making sure hemoglobin remains stable prior to discharge. Review of Systems 10-point ROS is otherwise unremarkable Physical Examination - Vital Signs Temperature: 97.8 F Blood Pressure: 98/62 Pulse: 93 Respirations: 14 Pulse Ox (%): 94 - Physical Exam General: Alert, In no apparent distress, Oriented x3 Respiratory: Clear to auscultation bilaterally, Normal air movement Cardiovascular: Regular rate/rhythm, Normal S1 S2, Other (Metallic valve click), Systolic murmur Gastrointestinal: Normal bowel sounds, No tenderness, No masses Integumentary: Other (Hematoma to the right hip) Assessment & Plan - Problems (Diagnosis) (1) Hypotensive episode Current Visit: Yes Status: Acute (2) Acute blood loss anemia Current Visit: Yes Status: Acute (3) Status post fall Current Visit: Yes Status: Acute (4) Hip hematoma, right Onset Date: 04/04/17 Current Visit: No Status: Acute Qualifiers: Encounter type: initial encounter Qualified Code(s): S70.01XA - Contusion of right hip, initial encounter (5) H/O mechanical aortic valve replacement Onset Date: 04/05/17 Current Visit: No Status: Chronic (6) Hypothyroid Onset Date: 04/05/17 Current Visit: No Status: Chronic Qualifiers: Hypothyroidism type: unspecified Qualified Code(s): E03.9 - Hypothyroidism, unspecified (7) Neuropathy Onset Date: 04/05/17 Current Visit: No Status: Chronic (8) Systemic lupus Onset Date: 04/05/17 Current Visit: No Status: Chronic Qualifiers: Systemic lupus erythematosus type: unspecified Systemic lupus erythematosus organ involvement: unspecified Qualified Code(s): M32.9 - Systemic lupus erythematosus, unspecified (9) Tobacco abuse Current Visit: No Status: Chronic (10) History of mitral valve replacement with mechanical valve Current Visit: Yes Status: Acute - Plan Plan: Continue with current plan of care as mentioned below 1. Hemoglobin is stable 2. Continue to monitor INR 3. Monitor hemodynamics closely 4. General surgery and cardiology consultation appreciated 5. Social work consultation 6. GI and DVT prophylaxis Discharge Plan: Home Plan to discharge in: Greater than 2 days - Advance Directives Does patient have a Living Will: No Does patient have a Durable POA for Healthcare: No - Code Status/Comfort Care Code Status: Full Code Critical Care: No Time Spent Managing PTS Care (In Minutes): 30
[2019-11-12] MEDS: FENTANYL CITR 100 MCG/2 ML IV PRN ×4 (02:27→20:20)
[2019-11-12 06:10] LABS: Magnesium 1.8 mg/dL (1.8-2.4)
[2019-11-12 06:12] LABS: Basophils % 0.3 % (0-1.3); Lymphocytes % 21.8 % (15.3-44.8); MPV 8.9 fL (7.6-11.3); RBC Red Blood Cell Count 3.45 M/uL (3.86-4.86)
[2019-11-12 06:20] LABS: Protime INR 1.27
[2019-11-12] MEDS ORDERED: MAGNESIUM SULFATE 1 gm IVPB 1 GM/100 ML BAG IV ONE (06:37)
[2019-11-12] MEDS: LEVOTHYROXINE SOD 0.125 MG TAB PO SCH (06:45)
[2019-11-12] MEDS: NA CHLORIDE 0.9% 1,000 ML IV SCH ×3 (06:45→23:35)
[2019-11-12] MEDS ORDERED: METOPROLOL TAR 25 MG TAB PO ONE (07:40)
[2019-11-12] MEDS: ENOXAPARIN 80 MG/0.8 ML SQ SCH ×2 (07:44→20:19)
[2019-11-12] MEDS: WARFARIN SODIUM 4 MG TAB PO SCH ×2 (07:44→17:37)
[2019-11-12] MEDS ORDERED: PREDNISONE 2.5 MG PO SCH (09:00)
[2019-11-12] MEDS ORDERED: MUPIROCIN 2% TOP SCH (09:00)
[2019-11-12] MEDS: ACYCLOVIR 400 MG TABLET PO SCH ×2 (09:36→20:19)
[2019-11-12] MEDS: PANTOPRAZOLE 40MG TABLET PO SCH ×2 (09:37→17:36)
[2019-11-12] MEDS: GABAPENTIN 300 MG CAP PO SCH (09:37)
[2019-11-12] MEDS: ALPRAZOLAM 1 MG TABLET PO SCH (09:37)
[2019-11-12] MEDS: predniSONE 5 MG TAB PO SCH (09:37)
[2019-11-12] MEDS: VENLAFAXINE HCL 75 MG TABLET PO SCH (09:38)
[2019-11-12] MEDS: SOD FERRIC GLUC COMPLX/SUCROSE 125 MG in NA CHLORIDE 0.9% 100 ML IV SCH (09:40)
--- NOTE | 2019-11-12 10:20 | PN ---
Date of Progress Note: 11/12/2019 Subjective: Patient is awake, alert. No complaint. Objective: Vital Signs: Stable. Afebrile. Skin: Examination of the right hip region reveals no increase in the ecchymosis that was marked yest erday. Laboratory Data: H and H stable. Assessment: Hematoma, right hip region. Patient is anticoagulated. Recommendations: Continue ice and pressure dressing and cleared by Surgery for discharge. Reconsult p.rwilbert BRENNAN/GERARDO Voice ID: [id number] Report ID: [id number]
--- NOTE | 2019-11-12 11:32 | PN ---
Subjective: Ms. Aldana has a history of mechanical mitral valve replacement and aortic valve replacem ent, chronically on Coumadin therapy. Came in yesterday with a bleed in her hip after a fall. She r eceived blood transfusions, fresh frozen plasma and 1 small dose of vitamin K. She is asymptomatic t chasidy. Her hemoglobin is 9.3. Her INR however is 1.27. Ms. Aldana is at very high risk for stroke from her prosthetic valve. She needs to start Lovenox imme diately twice a day. We need to resume her Coumadin at 4 mg once a day. We will follow her INR. To kandis, she could probably go home on her Coumadin and Lovenox at the same time until her INR is adeq uate above 2.5, then we can stop the Lovenox then. SINGH/GERARDO Voice ID: [id number] Report ID: [id number]
[2019-11-12] MEDS ORDERED: HYDROCODONE/APAP 10/325 TAB PO PRN (12:24)
--- NOTE | 2019-11-13 01:03 | P.PN ---
Subjective Date of Service: 11/12/19 Hemoglobin has stabilized. Hemodynamically stable. Still having pain in her right hip. She does Wanna go home however her INR is subtherapeutic now. She may need to be anticoagulated more appropriately prior to discharge. Will discuss with Cardiology and surgery. Review of Systems 10-point ROS is otherwise unremarkable Physical Examination - Vital Signs Temperature: 98.9 F Blood Pressure: 100/60 Pulse: 87 Respirations: 87 Pulse Ox (%): 98 - Physical Exam General: Alert, In no apparent distress, Oriented x3 Respiratory: Clear to auscultation bilaterally, Normal air movement Cardiovascular: Regular rate/rhythm, Normal S1 S2, Other, Systolic murmur Gastrointestinal: Normal bowel sounds, Soft and benign, Non-distended Musculoskeletal: No clubbing, No swelling, No contractures Integumentary: Other (Bruising from the right hip down to the right leg) Neurological: Normal strength at 5/5 x4 extr, Normal tone, Sensation intact, Cranial nerves 3-12 intact Assessment & Plan - Problems (Diagnosis) (1) Hypotensive episode Current Visit: Yes Status: Acute (2) Acute blood loss anemia Current Visit: Yes Status: Acute (3) Status post fall Current Visit: Yes Status: Acute (4) Hip hematoma, right Onset Date: 04/04/17 Current Visit: No Status: Acute Qualifiers: Encounter type: initial encounter Qualified Code(s): S70.01XA - Contusion of right hip, initial encounter (5) H/O mechanical aortic valve replacement Onset Date: 04/05/17 Current Visit: No Status: Chronic (6) Hypothyroid Onset Date: 04/05/17 Current Visit: No Status: Chronic Qualifiers: Hypothyroidism type: unspecified Qualified Code(s): E03.9 - Hypothyroidism, unspecified (7) Neuropathy Onset Date: 04/05/17 Current Visit: No Status: Chronic (8) Systemic lupus Onset Date: 04/05/17 Current Visit: No Status: Chronic Qualifiers: Systemic lupus erythematosus type: unspecified Systemic lupus erythematosus organ involvement: unspecified Qualified Code(s): M32.9 - Systemic lupus erythematosus, unspecified (9) Tobacco abuse Current Visit: No Status: Chronic (10) History of mitral valve replacement with mechanical valve Current Visit: Yes Status: Acute - Plan Plan: Continue with current plan of care as mentioned below 1. Hemoglobin is stable 2. Continue to monitor INR; currently subtherapeutic 3. Monitor hemodynamics closely 4. General surgery and cardiology consultation appreciated 5. Social work consultation 6. GI and DVT prophylaxis Discharge Plan: Home Plan to discharge in: Greater than 2 days - Advance Directives Does patient have a Living Will: No Does patient have a Durable POA for Healthcare: No - Code Status/Comfort Care Code Status: Full Code Critical Care: No Time Spent Managing PTS Care (In Minutes): 35
[2019-11-13 02:35] VITALS: O2SAT 96
[2019-11-13] MEDS: NA CHLORIDE 0.9% 1,000 ML IV SCH (04:20)
[2019-11-13] MEDS: FENTANYL CITR 100 MCG/2 ML IV PRN ×2 (05:45→10:13)
[2019-11-13] MEDS: LEVOTHYROXINE SOD 0.125 MG TAB PO SCH (05:45)
[2019-11-13 06:15] LABS: Protime INR 1.05
[2019-11-13 06:21] LABS: Basophils % 0.1 % (0-1.3); Hematocrit 24.5 % (36.0-45.0); Lymphocytes % 27.8 % (15.3-44.8); MPV 8.5 fL (7.6-11.3); RBC Red Blood Cell Count 2.97 M/uL (3.86-4.86)
[2019-11-13 06:22] LABS: Magnesium 1.9 mg/dL (1.8-2.4); Potassium 3.8 mmol/L (3.5-5.1)
[2019-11-13] MEDS: PANTOPRAZOLE 40MG TABLET PO SCH (07:30)
[2019-11-13] MEDS: VENLAFAXINE HCL 75 MG TABLET PO SCH (08:47)
[2019-11-13] MEDS: predniSONE 5 MG TAB PO SCH (08:48)
[2019-11-13] MEDS: GABAPENTIN 300 MG CAP PO SCH (08:48)
[2019-11-13] MEDS: ACYCLOVIR 400 MG TABLET PO SCH (08:49)
[2019-11-13] MEDS: ENOXAPARIN 80 MG/0.8 ML SQ SCH (08:49)
[2019-11-13] MEDS: SOD FERRIC GLUC COMPLX/SUCROSE 125 MG in NA CHLORIDE 0.9% 100 ML IV SCH (08:50)
[2019-11-13] MEDS ORDERED: POTASSIUM CL SA 10 MEQ TAB PO ONE (09:00)
[2019-11-13] MEDS ORDERED: METOPROLOL XL 50 MG TAB PO SCH (09:00)
--- NOTE | 2019-11-13 09:40 | P.PN ---
Subjective Date of Service: 11/13/19 Chief Complaint: Status post fall with large right hip & perineal hematoma patient's hemoglobin is down to 8.1 this morning. This is almost a 2 unit drop. Patient's INR is also subtherapeutic but we have started Lovenox and Coumadin. Cardiology is okay with patient going home with the Lovenox and Coumadin. She does know how to give herself Lovenox injections. I will recheck her hemoglobin later this morning and make sure it is remaining stable. If this is the case then she should be able to go home. However, if patient's hemoglobin is dropping steadily and she will need to stay here until the bleeding completely stopped. Review of Systems 10-point ROS is otherwise unremarkable Physical Examination - Vital Signs Temperature: 97.3 F Blood Pressure: 122/62 Pulse: 89 Respirations: 18 Pulse Ox (%): 96 - Physical Exam General: Alert, In no apparent distress, Oriented x3 Respiratory: Clear to auscultation bilaterally, Normal air movement Cardiovascular: Regular rate/rhythm, Normal S1 S2, No murmurs Gastrointestinal: Normal bowel sounds, Soft and benign, Non-distended, No tenderness Musculoskeletal: No clubbing, No swelling, No tenderness Neurological: Cranial nerves 3-12 intact, Normal reflexes 2+ Lymphatics: No axilla or inguinal lymphadenopathy - Studies Medications List Reviewed: Yes Assessment & Plan - Problems (Diagnosis) (1) Hypotensive episode Current Visit: Yes Status: Acute (2) Acute blood loss anemia Current Visit: Yes Status: Acute (3) Status post fall Current Visit: Yes Status: Acute (4) Hip hematoma, right Onset Date: 04/04/17 Current Visit: No Status: Acute Qualifiers: Encounter type: initial encounter Qualified Code(s): S70.01XA - Contusion of right hip, initial encounter (5) H/O mechanical aortic valve replacement Onset Date: 04/05/17 Current Visit: No Status: Chronic (6) Hypothyroid Onset Date: 04/05/17 Current Visit: No Status: Chronic Qualifiers: Hypothyroidism type: unspecified Qualified Code(s): E03.9 - Hypothyroidism, unspecified (7) Neuropathy Onset Date: 04/05/17 Current Visit: No Status: Chronic (8) Systemic lupus Onset Date: 04/05/17 Current Visit: No Status: Chronic Qualifiers: Systemic lupus erythematosus type: unspecified Systemic lupus erythematosus organ involvement: unspecified Qualified Code(s): M32.9 - Systemic lupus erythematosus, unspecified (9) Tobacco abuse Current Visit: No Status: Chronic (10) History of mitral valve replacement with mechanical valve Current Visit: Yes Status: Acute - Plan Plan: Continue with current plan of care as mentioned below 1. Hemoglobin is decreased; Repeat hemoglobin this afternoon 2. Continue to monitor INR; currently subtherapeutic; patient knows how to take Lovenox injections which we will arrange for at the time of discharge. Anticipate INR will increase over the next 48-72 hours; will need to continue to overlap Lovenox until INR is greater than 2. 3. Monitor hemodynamics closely 4. General surgery and cardiology consultation appreciated 5. Social work consultation to evaluate for placement ; patient has struggled to take care of herself at home 6. GI and DVT prophylaxis Discharge Plan: Home Plan to discharge in: Greater than 2 days - Advance Directives Does patient have a Living Will: No Does patient have a Durable POA for Healthcare: No - Code Status/Comfort Care Code Status: Full Code Critical Care: No Time Spent Managing PTS Care (In Minutes): 30
[2019-11-13 11:05] LABS: Basophils % 0.2 % (0-1.3); Hematocrit 26.2 % (36.0-45.0); Lymphocytes % 23.2 % (15.3-44.8); MPV 8.4 fL (7.6-11.3)
[2019-11-13] MEDS ORDERED: CYANOCOBALAMIN 1000MCG/ML INJ IM ONE (11:43)
[2019-11-13 13:49] VITALS: BP 107/57; TEMP 98.4
--- NOTE | 2019-11-13 15:24 | PN ---
Date of Progress Note: 11/13/2019 Ms. Aldana was admitted with a hematoma on her right hip following a fall. Elevated INR. She has a h istory of mechanical mitral valve replacement and aortic valve replacement. She had done well. No f urther bleeding. Hematoma has almost resolved. She has no symptoms. Her INR, however, is only 1.2. She received Lovenox yesterday as well as Coumadin. We will do the same thing today with Coumadin and Lovenox. She will be going home on Lovenox b.i.d. and Coumadin until we establish an adequate IN R, then we take her off the Lovenox. She did state that she may have some surgery coming up next we. She will check on that Saturday and if she is going to have surgery, then she knows what to do. Liz wilder has done that before. She can get off Coumadin, stay on Lovenox, then resume the Lovenox and Couma din after her surgery. I will get an INR on her early next week. SINGH/GERARDO Voice ID: [id number] Report ID: [id number]
== END 2019-11-13 14:33 | disposition home health service (06) | DRG 605 ==
LOC: ER 16:26 → ERHOLD 22:12 → 2ND 11-11 08:11
PROVIDERS: ADMIT Hospitalist; ATTEND Hospitalist
PROC: 30233N1 Transfusion of Nonautologous Red Blood Cells into Peripheral Vein, Percutaneous Approach (ICD-10-PCS; principal; 2019-11-10)
PROC: 0CQ1XZZ Repair Lower Lip, External Approach (ICD-10-PCS; 2019-11-10)
DX: S70.01XA Contusion of right hip, initial encounter (principal); D62 Acute posthemorrhagic anemia; I95.9 Hypotension, unspecified; Z88.0 Allergy status to penicillin; Z88.8 Allergy status to other drugs, medicaments and biological substances; Z91.048 Other nonmedicinal substance allergy status; Z79.01 Long term (current) use of anticoagulants; Z79.52 Long term (current) use of systemic steroids; Z79.890 Hormone replacement therapy; Z79.899 Other long term (current) drug therapy; Z96.643 Presence of artificial hip joint, bilateral; Z96.651 Presence of right artificial knee joint; Z98.51 Tubal ligation status; F17.200 Nicotine dependence, unspecified, uncomplicated; Z95.2 Presence of prosthetic heart valve; E03.9 Hypothyroidism, unspecified; G62.9 Polyneuropathy, unspecified; M32.9 Systemic lupus erythematosus, unspecified; S01.511A Laceration without foreign body of lip, initial encounter; W01.0XXA Fall on same level from slipping, tripping and stumbling without subsequent striking against object, initial encounter; L97.519 Non-pressure chronic ulcer of other part of right foot with unspecified severity; Z88.5 Allergy status to narcotic agent; K21.9 Gastro-esophageal reflux disease without esophagitis; Z91.81 History of falling; Z86.73 Personal history of transient ischemic attack (TIA), and cerebral infarction without residual deficits
CPT/HCPCS: 36415; 70450; 71260; 72125; 74177; 80048; 80053; 82607; 82746; 83540; 83735; 84100; 85025; 85610; 85730; 86850; 86900; 86901; 96361; 96374; 96375; 97112; 97116; 97161; 97530; 99285; J1650; J2405; J2916; J3010; J3420; J3430; J3475; J7030; J7512; P9016; Q9967

== ENCOUNTER 2020-08-08 18:29 | Emergency (ER) | payer OTHER, SELFPAY ==
--- OUTSIDE RECORDS SUMMARY | 2020-08-08 18:32 | XMS REPORT | Clinical Summary ---
:1960 Author Organization [facility] Address [address] [place] [address] Care Team Providers Name Role Phone Ham Lenard MCKEON Primary Care Provider Allergies Active Allergy Reactions Severity Noted Date Comments Adhesive Tape-Silicones 10/01/2015 "Alba stic" Aspirin 10/01/2015 Cardio does not want pt to take Hydromorphone 10/01/2015 Meperidine 10/01/2015 Methadone 10/01/2015 Morphine Shortness Of Breath High 10/01/2015 Penicillins Shortness Of Breath High 10/01/2015 Prochlorperazine 10/01/2015 Promethazine 10/01/2015 im causes nause a Medications Medication Sig Dispensed Refills Start Date End Date Status PROAIR HFA 90 2 puffs every 6 0 01/20/2016 Active mcg/actuation inhaler (six) hours as needed. RESTASIS 0.05 % Administer 1 drop 0 04/12/2016 Active ophthalmic emulsion to both eyes. cyclobenzaprine Take 10 mg by 0 Active (FLEXERIL) 10 MG mouth 3 (three) tablet times a day as needed for muscle spasms. MULTIVITAMIN ORAL Take by mouth. 0 Active ascorbic acid, vitamin Take 100 mg by 0 Active C, (vitamin C) 100 MG mouth daily. tablet amitriptyline (ELAVIL) Take 75 mg by 0 Active 100 MG tablet mouth nightly. levothyroxine TAKE ONE TABLET 90 tablet 0 10/09/2016 Active (SYNTHROID, LEVOXYL) BY MOUTH DAILY 125 mcg tablet omeprazole (PriLOSEC) TAKE ONE CAPSULE 60 capsule 0 11/26/2016 Active 20 MG capsule BY MOUTH TWICE A DAY gabapentin (NEURONTIN) 200 mg daily. 0 01/16/2017 Active 400 mg capsule metoprolol succinate 0 12/05/2016 Active XL (TOPROL-XL) 50 mg 24 hr tablet mupirocin (BACTROBAN) 0 12/25/2016 Active 2 % ointment predniSONE (DELTASONE) Take 2.5 mg by 0 01/14/2017 Active 2.5 mg tablet mouth daily. 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 ADENOIDECTOMY 08/05/2013 - 08/04/2014 CATARACT EXTRACTION 08/05/1989 - Bilateral 08/04/1990 EYE SURGERY 08/05/1989 - Left Lens implant 08/04/1990 JOINT REPLACEMENT 08/05/1997 - Right Total hip repl acement due 08/04/1998 to steroid induc ed AVN JOINT REPLACEMENT 08/05/1998 - Bilateral Total hip repl acement 08/04/1999 CARDIAC VALVE REPLACEMENT 08/05/2001 - AVR an d MVR on 08/04/2002 anticoagulation BREAST SURGERY 08/05/2011 - Breast reduction surgery 08/04/2012 complicated by w ound infection TOE AMPUTATION Left Medical History Medical History Date Comments Carcinoid tumor of appendix Hypothyroidism Vitamin D deficiency Antiphospholipid syndrome (HCC) Aortic valve disorder MVP (mitral valve prolapse) Bronchitis UTI (urinary tract infection) Cough IFG (impaired fasting glucose) Abnormal liver enzymes Chronic anticoagulation GERD (gastroesophageal reflux disease) Hyperlipidemia Family History Medical History Relation Name Comments Cancer Maternal Grandmother breast Relation Name Status Comments Maternal Grandmother Social History Tobacco Use Types Packs/Day Years Used Date Current Some Day Smoker Cigarettes 6 Tobacco Cessation: Ready to Quit: Yes; C ounseling Given: Yes Comments: 3 pc of cigarettes per day Alcohol Use Drinks/Week oz/Week Comments No Sex Assigned at Date Recorded Not on file Last Filed Vital Signs Not on file Plan of Treatment Health Maintenance Due Date Last Done Comments COVID-19 VACCINE (#1) 1975 COLONOSCOPY SCREENING 2009 SHINGLES VACCINES (#1) 2009 BREAST CANCER SCREENING 01/04/2016 01/03/2014 CERVICAL CANCER SCREENING 04/05/2018 04/05/2015 INFLUENZA VACCINE 03/05/2020 04/19/2016, 04/05/2015 Results Not on fileafter 08/08/2019 Advance Directives For more information, please contact: [phone] Type Date Recorded Patient Dairy Associate Explanati on Advance Directives, Living Will 02/06/2017 12:50 PM and Medical Power of Public Service Officer
--- OUTSIDE RECORDS SUMMARY | 2020-08-08 18:32 | XMS REPORT | Clinical Summary ---
:1960 Author Organization [facility] Address [address] [place] [address] Care Team Providers Name Role Phone Pcp, No MD Primary Care Provider Unavailable Allergies Active Allergy Reactions Severity Noted Date Comments Penicillins 01/08/2019 Medications Medication Sig Dispensed Refills Start Date End Date Status predniSONE (DELTASONE) Take 2.5 mg by 0 Active 2.5 MG tablet mouth daily. metoprolol (TOPROL-XL) Take 25 mg by 0 Active 25 MG 24 hr tablet mouth daily. amitriptyline (ELAVIL) Take 25 mg by 0 Active 25 MG tablet mouth daily. acyclovir (ZOVIRAX) 200 Take by mouth 0 Active MG capsule daily as needed. omeprazole (PRILOSEC) 20 Take 20 mg by 0 Active MG capsule mouth 2 (two) times daily. ALPRAZolam (XANAX) 2 MG Take 2 mg by 0 Active tablet mouth every night as needed for Sleep. Active Problems Problem Noted Date GI bleed 01/07/2019 Social History Tobacco Use Types Packs/Day Years Used Date Current Every Day Smoker 0.5 1 Prashant t: 01/08/2019 Smokeless Tobacco: Never Used Tobacco Cessation: Ready to Quit: Yes Comments: 44 years Alcohol Use Drinks/Week oz/Week Comments Yes Sex Assigned at Date Recorded Not on file Last Filed Vital Signs Not on file Plan of Treatment Health Maintenance Due Date Last Done Comments BREAST CANCER SCREENING 1960 CERVICAL CANCER SCREENING PAP ONLY (Age 110[birth year]1980 21-65) LIPID PANEL 10/21/2018 10/22/2015 MEDICARE ANNUAL WELLNESS (YEAR 2 or FIRST 08/06/2019 YEAR if no IPPE) COLON CANCER SCREENING ANNUAL FOBT 01/14/2020 01/13/2019 INFLUENZA VACCINE (#1) 2020 04/19/2016, 04/05/2015 PNEUMOCOCCAL VACCINE 0-64 YRS Completed 04/19/2016, 2014 Results Not on fileafter 08/08/2019 Insurance Payer Benefit Plan Subscriber ID Effective Phone Address Typ e / Group Dates AETNA - A[employer] [id number] 2018-Pres [phone] [address] [employer] MEDICARE MGD MEDICARE HMO ent [id number] Contracted CARE POS NIKKI YAN [id number] Advance Directives For more information, please contact: [phone] Code Status Date Activated Date Inactivated Comments Full Code 01/07/2019 9:47 PM 01/17/2019 2:52 PM This code status was determined by: Patient
--- OUTSIDE RECORDS SUMMARY | 2020-08-08 18:33 | XMS REPORT | Continuity of Care Document ---
:[address] [facility] t Address [address] [place] [address] Care Team Providers Name Role Phone Pcp MD Primary Care Physician Unavailable OMRANIAN Attending Clinician Unavailable OMRANIAN Admitting Clinician Unavailable Problems Condition Condition Condition Status Onset Resolution Last Treating Co mments Source Name Details Category Date Date Treatment Clinician Date GI bleed GI bleed Disease [facility] Acute Acute Disease Active [place] blood loss blood loss 02-10 [facility] anemia anemia 00:00: st 00 Abrasion Abrasion Disease Active [place] [facility] toe of toe 02-10 [facility] 00:[facility]: st 00 Fever Fever Disease Active [facility] 02-10 [facility] 00:[facility]: st 00 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 00:00: st kendra kendra 00 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 00:00: st 00 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 00:00: and st 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 Blood Blood Disease Active [facility] clotting clotting 02-10 [facility] disorder disorder 00:00: st 00 Left Left Disease Active [facility] pectoral pectoral 02-07 [facility] hematoma hematoma 00:00: st 00 Fall Fall Disease Active [facility] 7-05 [facility] 00:00: st 00 Acute Acute Disease Active [facility] bronchitis bronchitis 10-01 Me thodi 00:00: st 00 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 00:00: st 00 Aortic Aortic Disease Active [place] valve valve 10-01 [facility] disorder disorder 00:00: st 00 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 00:00: st Cough Cough Disease Active [facility] 10-01 [facility] 00:00: st 00 Hypothyroi Hypothyroi Disease Active H adrianne dism dism 10-01 [facility] 00:00: st Impaired Impaired Disease Active [place] fasting fasting 10-01 [facility] glucose glucose 00:00: st Abnormal Abnormal Disease Active [place] liver liver 10-01 [facility] enzymes enzymes 00:00: st 00 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 00:00: st Urinary Urinary Disease Active [place] tract tract 10-01 [facility] infection infection 00:00: st Vitamin D Vitamin D Disease Active [facility] [facility] deficiency deficiency 10-01 Me thodi 00:00: st 00 Allergies, Adverse Reactions, Alerts Allergy Allergy Status Severity Reaction(s) Onset Inactive Treating Comm ents Source Name Type Date Date Clinician Penicill Propensi Active [facility] - adverse 00:[facility]: Medical reaction 00 Center s Adhesive Propensi Active "Plastic" [place] Tape-Sophia ty to 10-01 [facility] icones adverse 00:00: st reaction 00 s to drug Aspirin Propensi Active Cardio [place] ty to 10-01 does not [facility] adverse 00:00: want pt st reaction 00 to take s to drug Hydromor Propensi Active [place] phone ty to 10-01 [facility] adverse 00:00: st reaction 00 s to drug Meperidi Propensi Active [place] ne ty to 10-01 [facility] adverse 00:00: st reaction 00 s to drug Methadon Propensi Active [place] ty to 10-01 [facility] adverse 00:00: st reaction 00 s to drug Morphine Propensi Active Shortness Of Madrigal ty to Breath 2-27 [facility] adverse 00:00: st reaction 00 s to drug Penicill Propensi Active Shortness Of [place] ins ty to Breath 2-27 [facility] adverse 00:00: st reaction 00 s to drug Prochlor Propensi Active [place] perazine ty to 10-01 [facility] adverse 00:00: st reaction 00 s to drug Prometha Propensi Active im causes [place] zine ty to 10-01 nausea [facility] adverse 00:00: st reaction 00 s to drug Family History Family Member Diagnosis Comments Start Date Stop Date Source Maternal grandmother Cancer [place] [facility] Social History Social Habit Start Date Stop Date Quantity Comments Source Sex Assigned At [facility] Cigarettes smoked 2019-01-16 2019-01-[address] [facility] - current (pack per 00:00:00 [facility]00 [facility] day) - Reported Cigarette 2019-01-16 2019-01-[address] [facility] - pack-years 00:00:00 00:00:00 [facility] Center Tobacco use and 2019-01-16 2019-01-[address] [facility] [address] [facility] - exposure 00:00:00 00:00:00 [facility] Center History of tobacco 2019-01-08 Current every day [facility] - use 00:00:00 smoker [facility] Alcohol intake 2017-02-08 2017-02-08 [facility] 00:00:00 00:00:00 non-drinker of [facility] alcohol (finding) Tobacco Comment 2017-02-08 2017-02-08 3 [facility] 00:00:00 00:00:00 cigarettes per [facility] day Smoking Status Start Date Stop Date Source Current every day smoker 2019-01-16 00:00:[address] [facility] Current some day smoker 2017-02-08 00:00:00 Angela doe [facility] Medications Ordered Filled Start Stop Current Ordering Indication Dosage Frequency Signature Comments Components Source Medication Medication Date Date Medication? Clinician (SIG) Name Name predniSONE Yes 2.5mg QD Take 2.[address] (DELTASONE) 6-15 mg by [facility] - 2.5 MG 12:52: mouth Medical tablet 30 daily. Center metoprolol Yes 25mg QD Take [address] (TOPROL-XL) 6-15 by mouth Luke s - 25 MG 24 hr 12:52: daily. Medi shannon tablet 30 Center amitriptyli Yes 25mg QD Take [address] [facility] (ELAVIL) 6-15 by mouth Luke s - 25 MG 12:52: daily. Medical tablet 30 Center acyclovir Yes Take by [facility] (ZOVIRAX) 6-15 mouth [facility] - 200 MG 12:52: daily as Medical capsule 30 needed. [place] omeprazole Yes 20mg Q.5D Take [address] (PRILOSEC) 6-15 by mouth 2 [facility] es - 20 MG 12:52: (two) Medical capsule 30 times Center daily. ALPRAZolam Yes 2mg Take [address] (XANAX) 2 6-15 by mouth [facility] - MG tablet 12:52: every Medical 30 night as Center needed for Sleep. cyclobenzap Yes 10mg [id number] Take 10 mg Madrigal rine 7-10 [id number] by mouth 3 Met hodi (FLEXERIL) 17:14: 3D (three) st 10 MG 27 times a tablet day as needed for muscle spasms. MULTIVITAMI Yes Take by Tete Miranda ORAL 7-10 mouth. [facility]i 17:14: st 27 ascorbic Yes 100mg QD Take 100 [place] acid, 7-10 mg by [facility] vitamin C, 17:14: mouth st (vitamin C) 27 daily. 100 MG tablet amitriptyli Yes 75mg QD Take 75 mg Madrigal ne (ELAVIL) 7-10 by mouth Meth michael 100 MG 17:14: nightly. st tablet 27 gabapentin Yes 200mg QD 200 mg [place] (NEURONTIN) 6-14 daily. Method i 400 mg 00:00: st capsule 00 topiramate Yes Rohan (TOPAMAX) 6-14 [facility] 50 MG 00:00: st tablet 00 predniSONE Yes 2.5mg QD Take 2.5 [place] (DELTASONE) 6-12 mg by [facility] 2.5 mg 00:00: mouth st tablet 00 daily. mupirocin Yes Rohan (BACTROBAN) 5-23 [facility] 2 % 00:00: st ointment 00 metoprolol Yes [place] succinate 5-03 [facility] XL 00:00: st (TOPROL-XL) 00 50 mg 24 hr tablet omeprazole Yes TAKE ONE [place] [facility] (PriLOSEC) 4-24 CAPSULE BY Met hodi 20 MG 00:00: MOUTH st capsule 00 TWICE A DAY levothyroxi Yes TAKE ONE Zeferino brown ne 3-07 TABLET BY [facility]i (SYNTHROID, 00:00: MOUTH st LEVOXYL) 00 DAILY 125 mcg tablet RESTASIS Yes 1[drp] Administer [place] 0.05 % 908 1 drop to [facility] ophthalmic 00:00: both eyes. s t emulsion 00 PROAIR HFA Yes 2{puff} Q6H 2 puffs [place] 90 6-17 every 6 [facility] mcg/actuati 00:00: (six) st on inhaler 00 hours as needed. Immunizations Ordered Immunization Filled Immunization Date Status Commen ts Source Name Name Pneumococcal 2016-04-19 Completed [facility] Polysaccharide 00:00:00 [facility] FLUZONE QUAD 2016-04-19 Completed [facility] 00:00:00 [facility] Influenza, 2015-04-05 Completed [facility] Quadrivalent 00:00:00 [facility] Pneumococcal 2015-04-05 Completed [facility] Polysaccharide 00:00:00 [facility] Procedures This patient has no known procedures. Plan of Care Planned Activity Planned Date Details Comments Source Future Scheduled 2020-04-[address] [facility] Test 00:00:00 (#1) [code = [facility] INFLUENZA VACCINE (#1)] Future Scheduled 2020-03-05 INFLUENZA VACCINE [place] [facility] Test 00:00:00 [code = INFLUENZA VACCINE] Future Scheduled 2020-01-[address] [facility] - Test 00:00:00 malignant neoplasm of Medica l Center colon (procedure) [code = 246383077] Future Scheduled 2019-08-[address] [facility] - Test 00:00:00 WELLNESS (YEAR 2 or Medical Center FIRST YEAR if no IPPE) [code = MEDICARE ANNUAL WELLNESS (YEAR 2 or FIRST YEAR if no IPPE)] Future Scheduled 2018-10-[address] [facility] - Test 00:00:00 (procedure) [code = [facility] 60288643] Future Scheduled 2018-04-05 Screening for [facility] Test 00:00:00 malignant neoplasm of cervix (procedure) [code = 904551115] Future Scheduled 2016-01-[address] [facility]ist Test 00:00:00 SCREENING [code = BREAST CANCER SCREENING] Future Scheduled 2009 COLONOSCOPY SCREENING [place] [facility] Test 00:00:00 [code = COLONOSCOPY SCREENING] Future Scheduled 2009 SHINGLES VACCINES [place] [facility] Test 00:00:00 (#1) [code = SHINGLES VACCINES (#1)] Future Scheduled [address] [facility] - Test 00:00:00 malignant neoplasm of [facility] cervix (procedure) [code = 134358172] Future Scheduled 1975 COVID-19 VACCINE (#1) [place] [facility] Test 00:00:00 [code = COVID-19 VACCINE (#1)] Future Scheduled [address] - Test 00:00:00 malignant neoplasm of [facility] breast (procedure) [code = 235649204] Results Test Description Test Time Test Comments Results Result Comments Source PROTHROMBIN TIME/INR 2019-01-17 06:03:00 Test Item Value Reference Range Interpretation Comme nts PROTIME (BEAKER) (test code = 759) 14.0 [...] 2019-01-16 06:24:00 Test Item Value Reference Range Interpretation Comments PROTIME (BEAKER) (test code = 13.2 seconds 11.9-14.2 759) INR (BEAKER) (test code = 370) 1.1 <=5.9 Effective 12/31/2018: PT Reference Range ChangeNew: 11.9-14.2 Previous: 11.7- 14.7RECOMMENDED COUMADIN/WARFARIN INR THERAPY RANGESSTANDARD DOSE: 2.0-3.0 Includes: PROPHYLAXIS for venous thrombosis, systemic embolization; TREATMENT for venous thrombosis and/or pulmonary embolus.HIGH RISK: Target INR is2.5-3.5 for patients wiht mechanical heart valves.While on warfarin.CBC W/PLT COUNT & AUTO [id number] 06:20:00 Test Item Value Reference Range Interpretation Comments WHITE BLOOD CELL COUNT (BEAKER) 7.0 K/ L 3.5-10.5 (test code = 775) RED BLOOD CELL COUNT (BEAKER) 3.72 M/ L 3.93-5.22 L (test code = 761) HEMOGLOBIN (BEAKER) (test code = 10.4 GM/DL 11.2-15.7 L 410) HEMATOCRIT (BEAKER) (test code = 33.0 % 34.1-44.9 L 411) MEAN CORPUSCULAR VOLUME (BEAKER) 88.7 fL 79.4-94.8 (test code = 753) MEAN CORPUSCULAR HEMOGLOBIN 28.0 pg 25.6-32.2 (BEAKER) (test code = 751) MEAN CORPUSCULAR HEMOGLOBIN CONC 31.5 GM/DL 32.2-35.5 L (BEAKER) (test code = 752) RED CELL DISTRIBUTION WIDTH 15.8 % 11.7-14.4 H (BEAKER) (test code = 412) PLATELET COUNT (BEAKER) (test 388 K/CU MM 150-450 code = 756) MEAN PLATELET VOLUME (BEAKER) 10.5 fL 9.4-12.3 (test code = 754) NUCLEATED RED BLOOD CELLS 0 /100 WBC 0-0 (BEAKER) (test code = 413) NEUTROPHILS RELATIVE PERCENT 71 % (BEAKER) (test code = 429) LYMPHOCYTES RELATIVE PERCENT 22 % (BEAKER) (test code = 430) MONOCYTES RELATIVE PERCENT 6 % (BEAKER) (test code = 431) EOSINOPHILS RELATIVE PERCENT 0 % (BEAKER) (test code = 432) BASOPHILS RELATIVE PERCENT 0 % (BEAKER) (test code = 437) NEUTROPHILS ABSOLUTE COUNT 4.93 K/ L 1.56-6.13 (BEAKER) (test code = 670) LYMPHOCYTES ABSOLUTE COUNT 1.55 K/ L 1.18-3.74 (BEAKER) (test code = 414) MONOCYTES ABSOLUTE COUNT (BEAKER) 0.42 K/ L 0.24-0.36 H (test code = 415) EOSINOPHILS ABSOLUTE COUNT 0.00 K/ L 0.04-0.36 L (BEAKER) (test code = 416) BASOPHILS ABSOLUTE COUNT (BEAKER) 0.01 K/ L 0.01-0.08 (test code = 417) IMMATURE GRANULOCYTES-RELATIVE 1 % 0-1 PERCENT (BEAKER) (test code = 2801) PROTHROMBIN TIME/[id number] 06:35:00 Test Item Value Reference Range Interpretation Comments PROTIME (BEAKER) (test code = 14.7 seconds 11.9-14.2 H 759) INR (BEAKER) (test code = 370) 1.2 <=5.9 Effective 12/31/2018: PT Reference Range ChangeNew: 11.9-14.2 Previous: 11.7- 14.7RECOMMENDED COUMADIN/WARFARIN INR THERAPY RANGESSTANDARD DOSE: 2.0-3.0 Includes: PROPHYLAXIS for venous thrombosis, systemic embolization; TREATMENT for venous thrombosis and/or pulmonary embolus.HIGH RISK: Target INR is2.5-3.5 for patients wiht mechanical heart valves.OCCULT BLOOD, [id number] 23:23:00 Test Item Value Reference Range Interpretation Comments FECAL OCCULT BLOOD (BEAKER) (test Negative Negative code = 618) PROTHROMBIN [id number] 07:00:00 Test Item Value Reference Range Interpretation Comments PROTIME (BEAKER) (test code = 13.9 seconds 11.9-14.2 759) INR (BEAKER) (test code = 370) 1.1 <=5.9 Effective 12/31/2018: PT Reference Range ChangeNew: 11.9-14.2 Previous: 11.7- 14.7RECOMMENDED COUMADIN/WARFARIN INR THERAPY RANGESSTANDARD DOSE: 2.0-3.0 Includes: PROPHYLAXIS for venous thrombosis, systemic embolization; TREATMENT for venous thrombosis and/or pulmonary embolus.HIGH RISK: Target INR is2.5-3.5 for patients wiht mechanical heart valves.CBC W/PLT COUNT & AUTO [id number] 06:52:00 Test Item Value Reference Range Interpretation Comments WHITE BLOOD CELL COUNT (BEAKER) 7.5 K/ L 3.5-10.5 (test code = 775) RED BLOOD CELL COUNT (BEAKER) 3.86 M/ L 3.93-5.22 L (test code = 761) HEMOGLOBIN (BEAKER) (test code = 10.7 GM/DL 11.2-15.7 L 410) HEMATOCRIT (BEAKER) (test code = 33.6 % 34.1-44.9 L 411) MEAN CORPUSCULAR VOLUME (BEAKER) 87.0 fL 79.4-94.8 (test code = 753) MEAN CORPUSCULAR HEMOGLOBIN 27.7 pg 25.6-32.2 (BEAKER) (test code = 751) MEAN CORPUSCULAR HEMOGLOBIN CONC 31.8 GM/DL 32.2-35.5 L (BEAKER) (test code = 752) RED CELL DISTRIBUTION WIDTH 14.8 % 11.7-14.4 H (BEAKER) (test code = 412) PLATELET COUNT (BEAKER) (test 383 K/CU MM 150-450 code = 756) MEAN PLATELET VOLUME (BEAKER) 9.8 fL 9.4-12.3 (test code = 754) NUCLEATED RED BLOOD CELLS 0 /100 WBC 0-0 (BEAKER) (test code = 413) NEUTROPHILS RELATIVE PERCENT 74 % (BEAKER) (test code = 429) LYMPHOCYTES RELATIVE PERCENT 19 % (BEAKER) (test code = 430) MONOCYTES RELATIVE PERCENT 5 % (BEAKER) (test code = 431) EOSINOPHILS RELATIVE PERCENT 0 % (BEAKER) (test code = 432) BASOPHILS RELATIVE PERCENT 0 % (BEAKER) (test code = 437) NEUTROPHILS ABSOLUTE COUNT 5.58 K/ L 1.56-6.13 (BEAKER) (test code = 670) LYMPHOCYTES ABSOLUTE COUNT 1.39 K/ L 1.18-3.74 (BEAKER) (test code = 414) MONOCYTES ABSOLUTE COUNT (BEAKER) 0.36 K/ L 0.24-0.36 (test code = 415) EOSINOPHILS ABSOLUTE COUNT 0.00 K/ L 0.04-0.36 L (BEAKER) (test code = 416) BASOPHILS ABSOLUTE COUNT (BEAKER) 0.02 K/ L 0.01-0.08 (test code = 417) IMMATURE GRANULOCYTES-RELATIVE 2 % 0-1 H PERCENT (DEDRA) (test code = 2801) MYOCARD IMAGING, MULTI, PHARM, [id number] 16:05:00FINAL REPORT PROCEDURE: MYOCARDIAL PERFUSION SPECT IMAGING (Rest/Stress)CPT CODE: [id number] INDICATION: Elevated troponin CARDIOVASCULAR PROFILE:CAD History: NoneSymptoms: [...] prior study for comparison. Signed: Brigido Hoover MDRepmarisela Verified Date/Time: 01/12/2019 16:05:30 Reading Location: [address] Reading Room [id number] 08:57:00 Test Item Value Reference Range Interpretation Comments THYROID STIMULATING HORMONE 1.50 uIU/mL 0.35-4.94 (DEDRA) (test code = 772) [id number] 08:56:00 Test Item Value Reference Range Interpretation Comments T4 TOTAL (BEAKER) (test code = 895) 7.9 ug/dL 4.9-11.7 PROTHROMBIN [id number] 03:12:00 Test Item Value Reference Range Interpretation Comments PROTIME (BEAKER) (test code = 14.0 seconds 11.9-14.2 759) INR (BEAKER) (test code = 370) 1.1 <=5.9 Effective 12/31/2018: PT Reference Range ChangeNew: 11.9-14.2 Previous: 11.7- 14.7RECOMMENDED COUMADIN/WARFARIN INR THERAPY RANGESSTANDARD DOSE: 2.0-3.0 Includes: PROPHYLAXIS for venous thrombosis, systemic embolization; TREATMENT for venous thrombosis and/or pulmonary embolus.HIGH RISK: Target INR is2.5-3.5 for patients wiht mechanical heart valves.CBC (HEMOGRAM ONLY)2019-01-12 03:04:00 Test Item Value Reference Range Interpretation Comments WHITE BLOOD CELL COUNT (BEAKER) 7.2 K/ L 3.5-10.5 (test code = 775) RED BLOOD CELL COUNT (BEAKER) 3.46 M/ L 3.93-5.22 L (test code = 761) HEMOGLOBIN (BEAKER) (test code = 9.7 GM/DL 11.2-15.7 L 410) HEMATOCRIT (BEAKER) (test code = 30.0 % 34.1-44.9 L 411) MEAN CORPUSCULAR VOLUME (BEAKER) 86.7 fL 79.4-94.8 (test code = 753) MEAN CORPUSCULAR HEMOGLOBIN 28.0 pg 25.6-32.2 (BEAKER) (test code = 751) MEAN CORPUSCULAR HEMOGLOBIN CONC 32.3 GM/DL 32.2-35.5 (BEAKER) (test code = 752) RED CELL DISTRIBUTION WIDTH 14.6 % 11.7-14.4 H (BEAKER) (test code = 412) PLATELET COUNT (BEAKER) (test 345 K/CU MM 150-450 code = 756) MEAN PLATELET VOLUME (BEAKER) 9.8 fL 9.4-12.3 (test code = 754) NUCLEATED RED BLOOD CELLS 0 /100 WBC 0-0 (BEAKER) (test code = 413) CBC (HEMOGRAM ONLY)2019-01-11 15:42:00 Test Item Value Reference Range Interpretation Comments WHITE BLOOD CELL COUNT (BEAKER) 7.5 K/ L 3.5-10.5 (test code = 775) RED BLOOD CELL COUNT (BEAKER) 3.65 M/ L 3.93-5.22 L (test code = 761) HEMOGLOBIN (BEAKER) (test code = 10.1 GM/DL 11.2-15.7 L 410) HEMATOCRIT (BEAKER) (test code = 32.4 % 34.1-44.9 L 411) MEAN CORPUSCULAR VOLUME (BEAKER) 88.8 fL 79.4-94.8 (test code = 753) MEAN CORPUSCULAR HEMOGLOBIN 27.7 pg 25.6-32.2 (BEAKER) (test code = 751) MEAN CORPUSCULAR HEMOGLOBIN CONC 31.2 GM/DL 32.2-35.5 L (BEAKER) (test code = 752) RED CELL DISTRIBUTION WIDTH 14.6 % 11.7-14.4 H (BEAKER) (test code = 412) PLATELET COUNT (BEAKER) (test 353 K/CU MM 150-450 code = 756) MEAN PLATELET VOLUME (BEAKER) 9.7 fL 9.4-12.3 (test code = 754) NUCLEATED RED BLOOD CELLS 0 /100 WBC 0-0 (BEAKER) (test code = 413) BASIC METABOLIC [id number] 14:05:00 Test Item Value Reference Range Interpretation Comments SODIUM (BEAKER) 137 meq/L 136-145 (test code = 381) POTASSIUM (BEAKER) 4.1 meq/L 3.5-5.1 (test code = 379) CHLORIDE (BEAKER) 103 meq/L 98-107 (test code = 382) CO2 (BEAKER) (test 28 meq/L 22-29 code = 355) BLOOD UREA NITROGEN 5 mg/dL 7-21 L (BEAKER) (test code = 354) CREATININE (BEAKER) 0.68 mg/dL 0.57-1.25 (test code = 358) GLUCOSE RANDOM 97 mg/dL 70-105 (BEAKER) (test code = 652) CALCIUM (BEAKER) 7.9 mg/dL 8.4-10.2 L (test code = 697) EGFR (BEAKER) (test 89 mL/min/1.73 ESTIMA TEN GFR IS code = 1092) sq m NOT ACCURATE CREATININE CLEARANCE IN PREDICTING GLOMERULAR FILTRATION RATE . ESTIMATED GFR I S NOT APPLICABLE FOR DIALYSIS PATIEN TS. TROPONIN [id number] 09:07:00 Test Item Value Reference Range Interpretation Comments TROPONIN I (BEAKER) (test code = 0.06 ng/mL 0.00-0.03 H 397) Troponin I (TnI) levels must be interpreted [...] acidosis, acute neurological disease, and persistent tachyarrhythmia.TROPONIN [id number] 06:51:00 Test Item Value Reference Range Interpretation Comments TROPONIN I (BEAKER) (test code = 0.05 ng/mL 0.00-0.03 H 397) Troponin I (TnI) levels must be interpreted [...] acute neurological disease, and persistent tachyarrhythmia.BASIC METABOLIC [id number] 06:51:00 Test Item Value Reference Range Interpretation Comments SODIUM (BEAKER) 139 meq/L 136-145 (test code = 381) POTASSIUM (BEAKER) 3.0 meq/L 3.5-5.1 L (test code = 379) CHLORIDE (BEAKER) 102 meq/L 98-107 (test code = 382) CO2 (BEAKER) (test 29 meq/L 22-29 code = 355) BLOOD UREA NITROGEN 6 mg/dL 7-21 L (BEAKER) (test code = 354) CREATININE (BEAKER) 0.71 mg/dL 0.57-1.25 (test code = 358) GLUCOSE RANDOM 118 mg/dL 70-105 H (BEAKER) (test code = 652) CALCIUM (BEAKER) 7.8 mg/dL 8.4-10.2 L (test code = 697) EGFR (BEAKER) (test 84 mL/min/1.73 ESTIMA TEN GFR IS code = 1092) sq m NOT ACCURATE CREATININE CLEARANCE IN PREDICTING GLOMERULAR FILTRATION RATE . ESTIMATED GFR I S NOT APPLICABLE FOR DIALYSIS PATIEN TS. [id number] 06:44:00 Test Item Value Reference Range Interpretation Comments MAGNESIUM (BEAKER) (test code = 1.8 mg/dL 1.6-2.6 627) PT/[id number] 04:26:00 Test Item Value Reference Range Interpretation Comments PROTIME (BEAKER) (test code = 14.9 seconds 11.9-14.2 H 759) INR (BEAKER) (test code = 370) 1.2 <=5.9 PARTIAL THROMBOPLASTIN TIME 90.9 seconds 22.5-36.0 H (BEAKER) (test code = 760) Effective 12/31/2018: PT Reference Range ChangeNew: 11.9-14.2 Previous: 11.7- 14.7RECOMMENDED COUMADIN/WARFARIN INR THERAPY RANGESSTANDARD DOSE: 2.0-3.0 Includes: PROPHYLAXIS for venous thrombosis, systemic embolization; TREATMENT for venous thrombosis and/or pulmonary embolus.HIGH RISK: Target INR is2.5-3.5 for patients wiht mechanical heart valves.Per heparin sliding scalePer heparin sliding scaleHEMOGLOBIN AND [id number] 04:15:00 Test Item Value Reference Range Interpretation Comments HEMOGLOBIN (BEAKER) (test code = 9.5 GM/DL 11.2-15.7 L 410) HEMATOCRIT (BEAKER) (test code = 30.2 % 34.1-44.9 L 411) TROPONIN [id number] 22:28:00 Test Item Value Reference Range Interpretation Comments TROPONIN I (BEAKER) (test code = 0.07 ng/mL 0.00-0.03 H 397) Troponin I (TnI) levels must be interpreted [...] failure, acidosis, acute neurological disease, and persistent tachyarrhythmia.PT/[id number] 22:15:00 Test Item Value Reference Range Interpretation Comments PROTIME (BEAKER) (test code = 15.0 seconds 11.9-14.2 H 759) INR (BEAKER) (test code = 370) 1.2 <=5.9 PARTIAL THROMBOPLASTIN TIME 38.3 seconds 22.5-36.0 H (BEAKER) (test code = 760) Effective 12/31/2018: PT Reference Range ChangeNew: 11.9-14.2 Previous: 11.7- 14.7RECOMMENDED COUMADIN/WARFARIN INR THERAPY RANGESSTANDARD DOSE: 2.0-3.0 Includes: PROPHYLAXIS for venous thrombosis, systemic embolization; TREATMENT for venous thrombosis and/or pulmonary embolus.HIGH RISK: Target INR is2.5-3.5 for patients wiht mechanical heart valves.Per heparin sliding scalePer heparin sliding scaleRAD, ABDOMEN/KUB, 1 VIEW [id number] 18:44:00Reason for exam:->vomitingFINAL REPORT Abdomen dated January 10, 2019 Comment:Abdomen was examined in the supine frontal position. Air is seen in the small and large bowel without dilatation to suggest mechanical obstruction or ileus. No mass, pathological calcification, or free air is present. Bilateral hip replacements are seen. Impression: No mechanical obstruction or ileus. Signed: Savannah Blanco MDRort Verified Date/Time: 01/10/2019 18:44:41 Reading Location: [facility] B1 C013Y CT Body Reading Room [id number] 14:44:00 Test Item Value Reference Range Interpretation Comments MAGNESIUM (BEAKER) (test code = 1.6 mg/dL 1.6-2.6 627) BASIC METABOLIC [id number] 14:44:00 Test Item Value Reference Range Interpretation Comments SODIUM (BEAKER) 140 meq/L 136-145 (test code = 381) POTASSIUM (BEAKER) 2.9 meq/L 3.5-5.1 L (test code = 379) CHLORIDE (BEAKER) 105 meq/L 98-107 (test code = 382) CO2 (BEAKER) (test 28 meq/L 22-29 code = 355) BLOOD UREA NITROGEN 7 mg/dL 7-21 (BEAKER) (test code = 354) CREATININE (BEAKER) 0.69 mg/dL 0.57-1.25 (test code = 358) GLUCOSE RANDOM 84 mg/dL 70-105 (BEAKER) (test code = 652) CALCIUM (BEAKER) 8.0 mg/dL 8.4-10.2 L (test code = 697) EGFR (BEAKER) (test 87 mL/min/1.73 ESTIMA TEN GFR IS code = 1092) sq m NOT ACCURATE CREATININE CLEARANCE IN PREDICTING GLOMERULAR FILTRATION RATE . ESTIMATED GFR I S NOT APPLICABLE FOR DIALYSIS PATIEN TS. TROPONIN [id number] 14:44:00 Test Item Value Reference Range Interpretation Comments TROPONIN I (BEAKER) (test code = 0.08 ng/mL 0.00-0.03 H 397) Troponin I (TnI) levels must be interpreted [...] 2019-01-10 14:34:00 Test Item Value Reference Range Interpretation Comments WHITE BLOOD CELL COUNT (BEAKER) 6.6 K/ L 3.5-10.5 (test code = 775) RED BLOOD CELL COUNT (BEAKER) 3.38 M/ L 3.93-5.22 L (test code = 761) HEMOGLOBIN (BEAKER) (test code = 9.4 GM/DL 11.2-15.7 L 410) HEMATOCRIT (BEAKER) (test code = 30.2 % 34.1-44.9 L 411) MEAN CORPUSCULAR VOLUME (BEAKER) 89.3 fL 79.4-94.8 (test code = 753) MEAN CORPUSCULAR HEMOGLOBIN 27.8 pg 25.6-32.2 (BEAKER) (test code = 751) MEAN CORPUSCULAR HEMOGLOBIN CONC 31.1 GM/DL 32.2-35.5 L (BEAKER) (test code = 752) RED CELL DISTRIBUTION WIDTH 15.0 % 11.7-14.4 H (BEAKER) (test code = 412) PLATELET COUNT (BEAKER) (test 288 K/CU MM 150-450 code = 756) MEAN PLATELET VOLUME (BEAKER) 10.5 fL 9.4-12.3 (test code = 754) NUCLEATED RED BLOOD CELLS 0 /100 WBC 0-0 (BEAKER) (test code = 413) NEUTROPHILS RELATIVE PERCENT 68 % (BEAKER) (test code = 429) LYMPHOCYTES RELATIVE PERCENT 24 % (BEAKER) (test code = 430) MONOCYTES RELATIVE PERCENT 5 % (BEAKER) (test code = 431) EOSINOPHILS RELATIVE PERCENT 0 % (BEAKER) (test code = 432) BASOPHILS RELATIVE PERCENT 0 % (BEAKER) (test code = 437) NEUTROPHILS ABSOLUTE COUNT 4.42 K/ L 1.56-6.13 (BEAKER) (test code = 670) LYMPHOCYTES ABSOLUTE COUNT 1.59 K/ L 1.18-3.74 (BEAKER) (test code = 414) MONOCYTES ABSOLUTE COUNT (BEAKER) 0.35 K/ L 0.24-0.36 (test code = 415) EOSINOPHILS ABSOLUTE COUNT 0.00 K/ L 0.04-0.36 L (BEAKER) (test code = 416) BASOPHILS ABSOLUTE COUNT (BEAKER) 0.02 K/ L 0.01-0.08 (test code = 417) IMMATURE GRANULOCYTES-RELATIVE 3 % 0-1 H PERCENT (BEAKER) (test code = 2801) [id number] 13:25:00 Test Item Value Reference Range Interpretation Comments AMYLASE (BEAKER) (test code = 349) 29 U/L 25-125 [id number] 13:25:00 Test Item Value Reference Range Interpretation Comments LIPASE (BEAKER) (test code = 749) 16 U/L 8-78 [id number] 13:24:00 Test Item Value Reference Range Interpretation Comments PARTIAL THROMBOPLASTIN TIME 41.1 seconds 22.5-36.0 H (BEAKER) (test code = 760) 6 hours after starting heparin infusion and as indicated per sliding scale HEMOGLOBIN AND [id number] 13:10:00 Test Item Value Reference Range Interpretation Comments HEMOGLOBIN (BEAKER) (test code = 9.3 GM/DL 11.2-15.7 L 410) HEMATOCRIT (BEAKER) (test code = 30.0 % 34.1-44.9 L 411) U/S, ABDOMINAL, [id number] 12:16:00Abdomen limited area? Add comment if clarification [...] Lopez Verified Date/Time: 01/10/2019 12:16:23 Reading Location: [address] Reading Room [id number] 20:52:00 Test Item Value Reference Range Interpretation Comments PROTIME (BEAKER) (test code = 18.3 seconds 11.9-14.2 H 759) INR (BEAKER) (test code = 370) 1.6 <=5.9 PARTIAL THROMBOPLASTIN TIME 56.3 seconds 22.5-36.0 H (BEAKER) (test code = 760) Effective 12/31/2018: PT Reference Range ChangeNew: 11.9-14.2 Previous: 11.7- 14.7RECOMMENDED COUMADIN/WARFARIN INR THERAPY RANGESSTANDARD DOSE: 2.0-3.0 Includes: PROPHYLAXIS for venous thrombosis, systemic embolization; TREATMENT for venous thrombosis and/or pulmonary embolus.HIGH RISK: Target INR is2.5-3.5 for patients wiht mechanical heart valves.HEMOGLOBIN AND [id number] 16:23:00 Test Item Value Reference Range Interpretation Comments HEMOGLOBIN (BEAKER) (test code = 9.4 GM/DL 11.2-15.7 L 410) HEMATOCRIT (BEAKER) (test code = 29.9 % 34.1-44.9 L 411) [id number] 07:42:00 Test Item Value Reference Range Interpretation Comments PROTIME (BEAKER) (test code = 19.1 seconds 11.9-14.2 H 759) INR (BEAKER) (test code = 370) 1.7 <=5.9 PARTIAL THROMBOPLASTIN TIME 111.0 seconds 22.5-36.0 H (BEAKER) (test code = 760) Effective 12/31/2018: PT Reference Range ChangeNew: 11.9-14.2 Previous: 11.7- 14.7RECOMMENDED COUMADIN/WARFARIN INR THERAPY RANGESSTANDARD DOSE: 2.0-3.0 Includes: PROPHYLAXIS for venous thrombosis, systemic embolization; TREATMENT for venous thrombosis and/or pulmonary embolus.HIGH RISK: Target INR is2.5-3.5 for patients wiht mechanical heart valves.[id number] 03:41:00 Test Item Value Reference Range Interpretation Comments MAGNESIUM (BEAKER) (test code = 1.7 mg/dL 1.6-2.6 627) BASIC METABOLIC [id number] 03:41:00 Test Item Value Reference Range Interpretation Comments SODIUM (BEAKER) 140 meq/L 136-145 (test code = 381) POTASSIUM (BEAKER) 4.2 meq/L 3.5-5.1 (test code = 379) CHLORIDE (BEAKER) 106 meq/L 98-107 (test code = 382) CO2 (BEAKER) (test 29 meq/L 22-29 code = 355) BLOOD UREA NITROGEN 7 mg/dL 7-21 (BEAKER) (test code = 354) CREATININE (BEAKER) 0.68 mg/dL 0.57-1.25 (test code = 358) GLUCOSE RANDOM 114 mg/dL 70-105 H (BEAKER) (test code = 652) CALCIUM (BEAKER) 7.9 mg/dL 8.4-10.2 L (test code = 697) EGFR (BEAKER) (test 89 mL/min/1.73 ESTIMA TEN GFR IS code = 1092) sq m NOT ACCURATE CREATININE CLEARANCE IN PREDICTING GLOMERULAR FILTRATION RATE . ESTIMATED GFR I S NOT APPLICABLE FOR DIALYSIS PATIEN TS. PROTHROMBIN [id number] 03:35:00 Test Item Value Reference Range Interpretation Comments PROTIME (BEAKER) (test code = 19.6 seconds 11.9-14.2 H 759) INR (BEAKER) (test code = 370) 1.8 <=5.9 Effective 12/31/2018: PT Reference Range ChangeNew: 11.9-14.2 Previous: 11.7- 14.7RECOMMENDED COUMADIN/WARFARIN INR THERAPY RANGESSTANDARD DOSE: 2.0-3.0 Includes: PROPHYLAXIS for venous thrombosis, systemic embolization; TREATMENT for venous thrombosis and/or pulmonary embolus.HIGH RISK: Target INR is2.5-3.5 for patients wiht mechanical heart valves.HEMOGLOBIN AND [id number] 03:21:00 Test Item Value Reference Range Interpretation Comments HEMOGLOBIN (BEAKER) (test code = 8.8 GM/DL 11.2-15.7 L 410) HEMATOCRIT (BEAKER) (test code = 27.9 % 34.1-44.9 L 411) [id number] 23:57:00 Test Item Value Reference Range Interpretation Comments PROTIME (BEAKER) (test code = 19.1 seconds 11.9-14.2 H 759) INR (BEAKER) (test code = 370) 1.7 <=5.9 PARTIAL THROMBOPLASTIN TIME 84.3 seconds 22.5-36.0 H (BEAKER) (test code = 760) Effective 12/31/2018: PT Reference Range ChangeNew: 11.9-14.2 Previous: 11.7- 14.7RECOMMENDED COUMADIN/WARFARIN INR THERAPY RANGESSTANDARD DOSE: 2.0-3.0 Includes: PROPHYLAXIS for venous thrombosis, systemic embolization; TREATMENT for venous thrombosis and/or pulmonary embolus.HIGH RISK: Target INR is2.5-3.5 for patients wiht mechanical heart valves.[id number] 22:20:00 Test Item Value Reference Range Interpretation Comments PROTIME (BEAKER) (test code = 19.3 seconds 11.9-14.2 H 759) INR (BEAKER) (test code = 370) 1.7 <=5.9 PARTIAL THROMBOPLASTIN TIME 111.7 seconds 22.5-36.0 H (BEAKER) (test code = 760) Effective 12/31/2018: PT Reference Range ChangeNew: 11.9-14.2 Previous: 11.7- 14.7RECOMMENDED COUMADIN/WARFARIN INR THERAPY RANGESSTANDARD DOSE: 2.0-3.0 Includes: PROPHYLAXIS for venous thrombosis, systemic embolization; TREATMENT for venous thrombosis and/or pulmonary embolus.HIGH RISK: Target INR is2.5-3.5 for patients wiht mechanical heart valves.Patient is on agartrobanPatient is on agartrobanHEMOGLOBIN AND [id number] 22:08:00 Test Item Value Reference Range Interpretation Comments HEMOGLOBIN (BEAKER) (test code = 9.6 GM/DL 11.2-15.7 L 410) HEMATOCRIT (BEAKER) (test code = 30.5 % 34.1-44.9 L 411) HEMOGLOBIN AND [id number] 16:25:00 Test Item Value Reference Range Interpretation Comments HEMOGLOBIN (BEAKER) (test code = 8.7 GM/DL 11.2-15.7 L 410) HEMATOCRIT (BEAKER) (test code = 27.5 % 34.1-44.9 L 411) CBC (HEMOGRAM ONLY)2019-01-08 16:25:00 Test Item Value Reference Range Interpretation Comments WHITE BLOOD CELL COUNT (BEAKER) 5.7 K/ L 3.5-10.5 (test code = 775) RED BLOOD CELL COUNT (BEAKER) 3.13 M/ L 3.93-5.22 L (test code = 761) HEMOGLOBIN (BEAKER) (test code = 8.7 GM/DL 11.2-15.7 L 410) HEMATOCRIT (BEAKER) (test code = 27.5 % 34.1-44.9 L 411) MEAN CORPUSCULAR VOLUME (BEAKER) 87.9 fL 79.4-94.8 (test code = 753) MEAN CORPUSCULAR HEMOGLOBIN 27.8 pg 25.6-32.2 (BEAKER) (test code = 751) MEAN CORPUSCULAR HEMOGLOBIN CONC 31.6 GM/DL 32.2-35.5 L (BEAKER) (test code = 752) RED CELL DISTRIBUTION WIDTH 15.6 % 11.7-14.4 H (BEAKER) (test code = 412) PLATELET COUNT (BEAKER) (test 226 K/CU MM 150-450 code = 756) MEAN PLATELET VOLUME (BEAKER) 10.8 fL 9.4-12.3 (test code = 754) NUCLEATED RED BLOOD CELLS 0 /100 WBC 0-0 (BEAKER) (test code = 413) [id number] 15:07:00 Test Item Value Reference Range Interpretation Comments PARTIAL THROMBOPLASTIN TIME 59.8 seconds 22.5-36.0 H (BEAKER) (test code = 760) PROTHROMBIN [id number] 14:32:00 Test Item Value Reference Range Interpretation Comments PROTIME (BEAKER) (test code = 19.7 seconds 11.9-14.2 H 759) INR (BEAKER) (test code = 370) 1.8 <=5.9 Effective 12/31/2018: PT Reference Range ChangeNew: 11.9-14.2 Previous: 11.7- 14.7RECOMMENDED COUMADIN/WARFARIN INR THERAPY RANGESSTANDARD DOSE: 2.0-3.0 Includes: PROPHYLAXIS for venous thrombosis, systemic embolization; TREATMENT for venous thrombosis and/or pulmonary embolus.HIGH RISK: Target INR is2.5-3.5 for patients wiht mechanical heart valves.B-TYPE NATRIURETIC FACTOR (BNP) 2019-01-08 12:44:00 Test Item Value Reference Range Interpretation Comments B-TYPE NATRIURETIC PEPTIDE (BEAKER) 526 pg/mL 0-100 H (test code = 700) [id number] 12:34:00 Test Item Value Reference Range Interpretation Comments POTASSIUM (BEAKER) (test code = 3.9 meq/L 3.5-5.1 379) [id number] 12:34:00 Test Item Value Reference Range Interpretation Comments MAGNESIUM (BEAKER) (test code = 2.0 mg/dL 1.6-2.6 627) [id number] 11:33:00 Test Item Value Reference Range Interpretation Comments PROCALCITONIN (BEAKER) (test code 0.05 ng/mL <0.05 H = 3036) SEPSIS RISK (ng/mL)Low: 0.05-0.50Intermediate: 0.51-2.00High: >=2.01LACTIC ACID, [id number] 10:31:00 Test Item Value Reference Range Interpretation Comments LACTATE BLOOD VENOUS (2) (BEAKER) 0.7 mmol/L 0.5-2.2 (test code = 2872) HEMOGLOBIN AND [id number] 10:10:00 Test Item Value Reference Range Interpretation Comments HEMOGLOBIN (BEAKER) (test code = 8.3 GM/DL 11.2-15.7 L 410) HEMATOCRIT (BEAKER) (test code = 26.2 % 34.1-44.9 L 411) BASIC METABOLIC [id number] 08:27:00 Test Item Value Reference Range Interpretation Comments SODIUM (BEAKER) 139 meq/L 136-145 (test code = 381) POTASSIUM (BEAKER) 3.2 meq/L 3.5-5.1 L (test code = 379) CHLORIDE (BEAKER) 105 meq/L 98-107 (test code = 382) CO2 (BEAKER) (test 28 meq/L 22-29 code = 355) BLOOD UREA NITROGEN 8 mg/dL 7-21 (BEAKER) (test code = 354) CREATININE (BEAKER) 0.72 mg/dL 0.57-1.25 (test code = 358) GLUCOSE RANDOM 91 mg/dL 70-105 (BEAKER) (test code = 652) CALCIUM (BEAKER) 7.6 mg/dL 8.4-10.2 L (test code = 697) EGFR (BEAKER) (test 83 mL/min/1.73 ESTIMA TEN GFR IS code = 1092) sq m NOT ACCURATE CREATININE CLEARANCE IN PREDICTING GLOMERULAR FILTRATION RATE . ESTIMATED GFR I S NOT APPLICABLE FOR DIALYSIS PATIEN TS. RAD, CHEST, 1 VIEW, NON [id number] 08:17:00Reason for exam:->pulmonary edemaShould this be performed [...] congestion and improved inspiratory ef fort. Signed: Shobha Wilks MDReport Verified Date/Time: 01/08/2019 08:17:31 Reading Location: [facility]iology Reading Room [id number] 08:12:00 Test Item Value Reference Range Interpretation Comments MAGNESIUM (BEAKER) (test code = 2.0 mg/dL 1.6-2.6 627) [id number] 07:14:00 Test Item Value Reference Range Interpretation Comments FERRITIN (BEAKER) (test code = 361) 346 ng/mL 5-275 H IRON, TIBC, % SAT. (WITHOUT FERRITIN)2019-01-08 06:51:00 Test Item Value Reference Range Interpretation Comments IRON (BEAKER) (test code = 547) 27.0 ug/dL 40.0-160.0 L TOTAL IRON BINDING CAPACITY 196 ug/dL 250-450 L (BEAKER) (test code = 769) IRON % SATURATION (2) (BEAKER) 14 % 20-55 L (test code = 2590) HEMOGLOBIN AND [id number] 06:25:00 Test Item Value Reference Range Interpretation Comments HEMOGLOBIN (BEAKER) (test code = 7.8 GM/DL 11.2-15.7 L 410) HEMATOCRIT (BEAKER) (test code = 24.4 % 34.1-44.9 L 411) THROMBOELASTOGRAPH (TEG)2019-01-08 01:42:00 Test Item Value Reference Range Interpretation Comments TEG ACTIVATED CLOTTING TIME 8.4 minutes 4.0-7.0 H (BEAKER) (test code = 1407) TEG FIBRINOGEN ACTIVITY (BEAKER) 71.7 degrees 61.0-73.0 (test code = 1408) TEG PLT. AGGREGATION (BEAKER) 68.2 MM 55.0-65.0 H (test code = 1409) TEG FIBRINOLYSIS (BEAKER) (test 0.0 % 0.0-5.0 code = 1410) TGH ACTIVATED CLOTTING TIME 8.9 minutes 4.0-7.0 H (BEAKER) (test code = 1411) TGH FIBRINOGEN ACTIVITY (BEAKER) 70.1 degrees 61.0-73.0 (test code = 1412) TGH PLT. AGGREGATION (BEAKER) 65.3 MM 55.0-65.0 H (test code = 1413) TGH FIBRINOLYSIS (BEAKER) (test 0.0 % 0.0-5.0 code = 1414) RAD, CHEST, 1 VIEW, NON [id number] 23:31:00Reason for exam:- >DyspneaShould this be performed [...] MDReport Verified Date/Time: 01/07/2019 23:31:03 Reading Location: [address] Reading Room COMPREHENSIVE METABOLIC PANEL 2019-01-07 22:56:00 Test Item Value Reference Range Interpretation Comments TOTAL PROTEIN 5.8 gm/dL 6.0-8.3 L (BEAKER) (test code = 770) ALBUMIN (BEAKER) 3.0 g/dL 3.5-5.0 L (test code = 1145) ALKALINE PHOSPHATASE 56 U/L 40-150 (BEAKER) (test code = 346) BILIRUBIN TOTAL 0.7 mg/dL 0.2-1.2 (BEAKER) (test code = 377) SODIUM (BEAKER) (test 139 meq/L 136-145 code = 381) POTASSIUM (BEAKER) 3.4 meq/L 3.5-5.1 L (test code = 379) CHLORIDE (BEAKER) 109 meq/L 98-107 H (test code = 382) CO2 (BEAKER) (test 23 meq/L 22-29 code = 355) BLOOD UREA NITROGEN 9 mg/dL 7-21 (BEAKER) (test code = 354) CREATININE (BEAKER) 0.75 mg/dL 0.57-1.25 (test code = 358) GLUCOSE RANDOM 102 mg/dL 70-105 (BEAKER) (test code = 652) CALCIUM (BEAKER) 7.1 mg/dL 8.4-10.2 L (test code = 697) AST (SGOT) (BEAKER) 25 U/L 5-34 (test code = 353) ALT (SGPT) (BEAKER) 11 U/L 6-55 (test code = 347) EGFR (BEAKER) (test 79 mL/min/1.73 ESTIMA TEN GFR IS code = 1092) sq m NOT ACCURATE CREATININE CLEARANCE IN PREDICTING GLOMERULAR FILTRATION RATE . ESTIMATED GFR I S NOT APPLICABLE FOR DIALYSIS PATIEN TS. [id number] 22:51:00 Test Item Value Reference Range Interpretation Comments MAGNESIUM (BEAKER) (test code = 1.3 mg/dL 1.6-2.6 L 627) [id number] 22:45:00 Test Item Value Reference Range Interpretation Comments FIBRINOGEN LEVEL (BEAKER) (test 509 mg/dl 225-434 H code = 658) PROTHROMBIN [id number] 22:09:00 Test Item Value Reference Range Interpretation Comments PROTIME (BEAKER) (test code = 20.5 seconds 11.9-14.2 H 759) INR (BEAKER) (test code = 370) 1.9 <=5.9 Effective 12/31/2018: PT Reference Range ChangeNew: 11.9-14.2 Previous: 11.7- 14.7RECOMMENDED COUMADIN/WARFARIN INR THERAPY RANGESSTANDARD DOSE: 2.0-3.0 Includes: PROPHYLAXIS for venous thrombosis, systemic embolization; TREATMENT for venous thrombosis and/or pulmonary embolus.HIGH RISK: Target INR is2.5-3.5 for patients wiht mechanical heart valves.CBC W/PLT COUNT & AUTO [id number] 22:05:00 Test Item Value Reference Range Interpretation Comments WHITE BLOOD CELL COUNT (BEAKER) 4.2 K/ L 3.5-10.5 (test code = 775) RED BLOOD CELL COUNT (BEAKER) 2.41 M/ L 3.93-5.22 L (test code = 761) HEMOGLOBIN (BEAKER) (test code = 6.7 GM/DL 11.2-15.7 L 410) HEMATOCRIT (BEAKER) (test code = 21.4 % 34.1-44.9 L 411) MEAN CORPUSCULAR VOLUME (BEAKER) 88.8 fL 79.4-94.8 (test code = 753) MEAN CORPUSCULAR HEMOGLOBIN 27.8 pg 25.6-32.2 (BEAKER) (test code = 751) MEAN CORPUSCULAR HEMOGLOBIN CONC 31.3 GM/DL 32.2-35.5 L (BEAKER) (test code = 752) RED CELL DISTRIBUTION WIDTH 14.2 % 11.7-14.4 (BEAKER) (test code = 412) PLATELET COUNT (BEAKER) (test 208 K/CU MM 150-450 code = 756) MEAN PLATELET VOLUME (BEAKER) 10.2 fL 9.4-12.3 (test code = 754) NUCLEATED RED BLOOD CELLS 0 /100 WBC 0-0 (BEAKER) (test code = 413) NEUTROPHILS RELATIVE PERCENT 73 % (BEAKER) (test code = 429) LYMPHOCYTES RELATIVE PERCENT 19 % (BEAKER) (test code = 430) MONOCYTES RELATIVE PERCENT 8 % (BEAKER) (test code = 431) EOSINOPHILS RELATIVE PERCENT 0 % (BEAKER) (test code = 432) BASOPHILS RELATIVE PERCENT 0 % (BEAKER) (test code = 437) NEUTROPHILS ABSOLUTE COUNT 3.08 K/ L 1.56-6.13 (BEAKER) (test code = 670) LYMPHOCYTES ABSOLUTE COUNT 0.79 K/ L 1.18-3.74 L (BEAKER) (test code = 414) MONOCYTES ABSOLUTE COUNT (BEAKER) 0.32 K/ L 0.24-0.36 (test code = 415) EOSINOPHILS ABSOLUTE COUNT 0.00 K/ L 0.04-0.36 L (BEAKER) (test code = 416) BASOPHILS ABSOLUTE COUNT (BEAKER) 0.00 K/ L 0.01-0.08 L (test code = 417) IMMATURE GRANULOCYTES-RELATIVE 1 % 0-1 PERCENT (BEAKER) (test code = 2801)
--- NOTE | 2020-08-08 21:50 | ER ---
Nurse's Notes [facility] Name: Kim Aldana Age: 60 yrs Sex: Female : 1960 Arrival Date: 08/08/2020 Time: 18:41 Bed Waiting Private MD: Diagnosis: Presentation: 08/08 18:42 Chief complaint: EMS states: LLE pain since May. Coronavirus screen: Client denies sv travel out of the [place] in the last 14 days. At this time, the client does not indicate any symptoms associated with coronavirus-19. Ebola Screen: No symptoms or risks identified at this time. Initial Sepsis Screen: Does the patient meet any 2 criteria? No. Patient's initial sepsis screen is negative. Does the patient have a suspected source of infection? No. Patient's initial sepsis screen is negative. Risk Assessment: Do you want to hurt yourself or someone else? Patient reports no desire to harm self or others. Onset of symptoms was May 2020. 18:42 Method Of Arrival: EMS: [facility] sv 18:42 Acuity: CABRERA 3 sv Triage Assessment: 18:45 General: Appears uncomfortable, Behavior is cooperative, appropriate for age, anxious. sv Neuro: Level of Consciousness is awake, alert, obeys commands, Oriented to person, place, time, situation, Gait is steady. Respiratory: Respiratory effort is even, unlabored. Historical: - Allergies: 18:45 Aspirin; sv 18:45 Compazine; sv 18:45 Methadone; sv 18:45 Morphine; sv 18:45 Neurontin; sv 18:45 PENICILLINS; sv 18:45 Phenergan; sv 18:45 plastic tape; sv 18:45 Suboxone; sv - PMHx: 18:45 arterial insuficiency; chest pain; Chronic pain; cerebritis; Back pain; esophageal sv reflux; dejenteritive joint disease; Dyspepsia; fatigue; hypersomnia; lumbar radiculitis; Lupus; menopause; osteomyelitis; Panic Attacks; pulmonary edema; Seizures; Tachycardia; TIA; venous insufficiency; Assessment: 20:00 Reassessment: called out from the lobby to recheck vitals, no answer. ca1 Vital Signs: 18:42 BP 115 / 87; Pulse 76; Resp 16; Temp 98; Pulse Ox 99% ; sv ED Course: 18:41 Patient arrived in ED. sv 18:44 Triage completed. sv 18:45 Arm band placed on. sv 21:49 Patient's name was called from ER lobby. No response. Unable to locate patient. Will ca1 disposition as left without being seen by a provider. Administered Medications: No medications were administered Outcome: 21:49 Patient left the ED. ca1 Signatures: Ashly Jerez RN RN sv Karol Lake RN RN ca1
[2020-08-08 22:09] VITALS: BP 115/87; TEMP 98; O2SAT 99
== END 2020-08-08 21:49 | disposition left against medical advice (07) ==
LOC: ER 18:29
DX: Z53.21 Procedure and treatment not carried out due to patient leaving prior to being seen by health care provider (principal)
CPT/HCPCS: 99282

== ENCOUNTER 2020-10-13 12:36 | Observation (INO) | payer OTHER ==
--- OUTSIDE RECORDS SUMMARY | 2020-10-13 12:43 | XMS REPORT | Continuity of Care Document ---
:1960 Author Organization [facility] t Address [facility] [address] [place] [address] Care Team Providers Name Role Phone Pcp Primary Care Physician Unavailable Radhames Segura MD Attending Clinician Katarzyna Infante MD Attending Clinician Vitaly Arzate MD Attending Clinician Ciara FRANCIS Attending Clinician Jovan FRANCIS Attending Clinician Denver Samaniego MD Attending Clinician French Pagan MD Attending Clinician Radhames SEGURA Attending Clinician Unavailable OMFELICITAS Attending Clinician Unavailable KATARZYNA INFANTE Admitting Clinician Unavailable OMRANALYSA Admitting Clinician Unavailable Payers Payer Name Policy Type Policy Effective Date Expiration Date Sour ce Number [facility] [id number] [facility] - MEDICARE MGD 00:00:00 - Medical CAREAARP/MEDICARE Center [id number] 2020-Present Problems Condition Condition Condition Status Onset Resolution Last Treating Co mments Source Name Details Category Date Date Treatment Clinician Date Claudicati Claudicati Disease Active [facility] of 08[facility]11 [facility] - right right 00:00: Medical lower lower 00 Center extremity extremity Symptomati Symptomati Disease Active [facility] c anemia c anemia 08-09 [facility] - 00:[facility] Medical 00 Center GI bleed GI bleed Disease Active [facility] - 00:[facility]: Medical 00 Center Allergies, Adverse Reactions, Alerts Allergy Allergy Status Severity Reaction(s) Onset Inactive Treating Comm ents Source Name Type Date Date Clinician Hydromor Drug Active Nausea And [facility] phone Allergy Vomiting 05 [facility] - (Bulk) 00:00: Medical 00 Gary Morpholi Drug Active Nausea And [facility] ne Allergy Vomiting 05 [facility] - Analogue 00:00: Medical s 00 Gary Penicill Propensi Active [facility] St ins ty to 01-08 [facility] - adverse 00:00: Medical reaction 00 Center s Social History Social Habit Start Date Stop Date Quantity Comments Source Sex Assigned At [facility] Cigarettes smoked 2020-08-19 [facility]00 [facility]:00 [facility] Center day) - Reported Cigarette 2020-08-19 2020[facility] 00:00:00 00:00:00 [facility] Tobacco use and 2020-08-19 2020-08-[address] [facility] kes - exposure 00:00:00 00:00:00 [facility] Alcohol intake 2020-08-19 2020-08-19 Current drinker HUGO garcia Luvladimir - 00:00:00 00:00:00 of alcohol [facility] (finding) Tobacco Comment 2019-01-08 2019-01-08 43 years [facility] Ayse kes - 00:00:00 00:00:00 [facility] History of tobacco 2019-01-[address] [facility] 00:[facility]00 day smoker [facility] Smoking Status Start Date Stop Date Source Current every day smoker 2020-08-19 00:00:00 [facility] Medications Ordered Filled Start Stop Current Ordering Indication Dosage Frequency Signature Comments Components Source Medication Medication Date Date Medication? Clinician (SIG) Name Name fentaNYL 2020- No 1{patch Place [address] (DURAGESIC) 08-27 } patch onto L ukes - 12 mcg/hr 00:00: 23:59 the skin Med ical patch 00 :00 every Center third day for 30 days. Max Daily Amount: 1 patch vancomycin/ 2020- No 1750mg Q24H Inject [address] 0.9 % sod 08-27 02-02 mLs (1,750 Marcie es - chloride 00:00: 23:59 mg total) Med ical (vancomycin 00 :00 intravenou Ce nter in sodium sly daily chloride for 10 0.9 %, NS,) days. 1.75 gram/250 mL Soln fentaNYL 2020- No 1{patch Place [address] (DURAGESIC) 08-27 } patch onto L ukes - 12 mcg/hr 00:00: 00:00 the skin Med ical patch 00 :00 every Center third day for 30 days. Max Daily Amount: 1 patch fentaNYL 2020- No 1{patch Place [address] (DURAGESIC) 08-27 } patch onto L ukes - 12 mcg/hr 00:00: 00:00 the skin Med ical patch 00 :00 every Center third day for 30 days. Max Daily Amount: 1 patch predniSONE Yes 2.5mg QD Take 2.[address] (DELTASONE) 1-22 mg by [facility] - 2.5 MG 18:01: mouth Medical tablet 10 daily. Center metoprolol Yes 50mg QD Take [address] (TOPROL-XL) 1-22 by mouth Luke s - 25 MG 24 hr 18:01: daily . Med ical tablet 10 Center amitriptyli Yes 50mg Q.5D Take [address] ne (ELAVIL) 1-22 by mouth 2 Ayse kes - 25 MG 18:01: (two) Medical tablet 10 times Center daily . acyclovir Yes 200mg Q.5D Take [address] (ZOVIRAX) 1-22 mg by [facility]ukes - 200 MG 18:01: mouth 2 Medical capsule 10 (two) Center times daily . ALPRAZolam Yes 1mg Take [address] (XANAX) 2 -22 by mouth 3 Luke s - MG tablet 18:01: (three) Medic al 10 times Center daily as needed for Sleep . gabapentin Yes 300mg [id number] Take [address] (NEURONTIN) 1-22 [id number] mg by L ukes - 300 MG 18:01: 3D mouth 3 Medical capsule 10 (three) Center times daily. cyanocobala Yes 1000ug Inject [facility] min 08-26 1,000 mcg [facility]ukes - (VITAMIN 18:01: intramuscu Med ical B-12) 1,000 10 larly Center mcg/mL every 30 injection (thirty) days. levothyroxi Yes 125ug Take [address] ne 1-22 mcg by [facility]ukes - (SYNTHROID, 18:01: mouth Medic al LEVOTHROID) 10 Every Center 125 MCG morning on tablet an empty stomach. warfarin 2020- No 4mg QD Take [address] (COUMADIN, 08-26 by mouth Luke s - JANTOVEN) 4 16:17: 00:00 daily. Med ical MG tablet 58 :00 Center warfarin 2020- No 2mg QD Take [address] [facility] (COUMADIN, 08-26 by mouth Luke s - JANTOVEN) 2 16:17: 00:00 daily. Med ical MG tablet 58 :00 Center warfarin 2021- Yes 4mg QD Take [address] (COUMADIN, 08-26 tablet (4 Marcie es - JANTOVEN) 4 00:00: 23:59 mg total) Medical MG tablet 00 :00 by mouth Center daily. docusate 2020- No 100mg QD Take 1 [facility] t sodium 08-26 capsule [facility] - (COLACE) 00:00: 23:59 (100 mg Medic al 100 MG 00 :00 total) by Center capsule mouth daily for 10 days. valACYclovi 2020- No 1000mg Take [address] (VALTREX) 08-26 tablet [facility] - 1000 MG 00:00: 23:59 (1,000 mg Medi shannon tablet 00 :00 total) by Center mouth every 12 (twelve) hours for 10 days. valACYclovi 2020- No 1000mg Take [address] r (VALTREX) 08-26 tablet [facility] - 1000 MG 00:00: 00:00 (1,000 mg Medi shannon tablet 00 :00 total) by Center mouth every 12 (twelve) hours for 10 days. aspirin 81 2020- No 81mg QD Take [address] MG chewable 08-24 tablet (81 L ukes - tablet 00:00: 23:59 mg total) Medic al 00 :00 by mouth Center daily for 30 days. pantoprazol 2020- No 40mg QD Take [address] e 08-24 tablet (40 [facility] - (PROTONIX) 00:00: 23:59 mg total) M edical 40 MG 00 :00 by mouth Center tablet daily for 30 days. ondansetron 2020- No 4mg Take [address] (ZOFRAN) 4 08-24 tablet (4 Marcie es - MG tablet 00:00: 23:59 mg total) Me dical 00 :00 by mouth 3 Center (three) times daily before meals for 30 days. polyethylen 2020- No 17g QD Take [address] e glycol 08-24 by mouth [facility]ukes - (GLYCOLAX) 00:00: 23:59 daily for M edical 17 gram 00 :00 3 days. Center packet vancomycin/ 2020- No 1500mg Q24H Inject [address] 0.9 % sod 08-24 mLs (1,500 Marcie es - chloride 00:00: 00:00 mg total) Med ical (vancomycin 00 :00 intravenou Ce nter in sodium sly daily chloride for 30 0.9%, NS,) days. 1.5 gram/250 mL Soln omeprazole 2020- No 20mg Q.5D Take [address] (PRILOSEC) 08-23 by mouth 2 Ayse kes - 20 MG 13:05: 00:00 (two) Medical capsule 21 :00 times Center daily. venlafaxine 2020- No 150mg QD Take [address] (EFFEXOR) 08-23 mg by [facility]ukes - 75 MG 13:05: 00:00 mouth Medical tablet 21 :00 daily. Center HYDROcodone 2020- No 1{tbl} Take [address] -acetaminop 08-23 tablet by Ayse al (NORCO 13:05: 00:00 mouth 2 Med ical 10-325) 21 :00 (two) Center 10-325 mg times per tablet daily as needed for Pain. clopidogreL 2020- No 75mg QD Take [address] (PLAVIX) 75 08-23 by mouth Marcie es - mg tablet 13:05: 00:00 daily. Medic al 21 :00 Center mupirocin Yes Apply [facility] (BACTROBAN) 19 daily as Luke s - 2 % 00:00: instructed Medical ointment 00 . Gary sucralfate 2020- No 1g Take [address] (CARAFATE) 08-23 tablet (1 Marcie es - 1 gram 00:00: 23:59 g total) Medica l tablet 00 :00 by mouth 4 Center (four) times daily before meals and nightly for 30 days. senna-docus 2020- No 2{tbl} QD Take [address] ate 08-23 tablets by Ministerio - (SENOKOT S) 00:00: 23:59 mouth Medi shannon 8.6-50 mg 00 :00 nightly Center per tablet for 30 days. polyethylen 2020- No 17g QD Take [address] e glycol 08-23 by mouth Lukes - (GLYCOLAX) 00:00: 23:59 daily for M edical 17 gram 00 :00 30 days. Gary packet magnesium 2020- No 400mg Q.5D Take [address] oxide 08-[address] [facility] - (MAG-OX) 00:00: 23:59 (400 mg Medic al 400 mg 00 :00 total) by Gary (241.3 mg mouth 2 magnesium) (two) tablet times daily for 30 days. lidocaine 2020- No 2{patch Q24H Place [address] (Lidocaine 08-23 } patches [facility] - Pain 00:00: 23:59 onto the Medical Relief) 4 % 00 :00 skin daily Ce nter patch for 30 days APPLY ON BL EXTREMITIE S. HYDROcodone 2020- No 1{tbl} Take [address] -acetaminop 08-23 tablet by Ayse al (NORCO 00:00: 23:59 mouth Medic al 10-325) 00 :00 every 8 Center 10-325 mg (eight) per tablet hours as needed for Pain for up to 8 days. Max Daily Amount: 3 tablets ondansetron 4mg Take 1 [facility] (ZOFRAN) 4 08-23 tablet (4 Marcie es - MG tablet 00:00: 00:00 mg total) Me dical 00 :00 by mouth 3 Center (three) times daily before meals for 30 days. Vital Signs Vital Name Observation Time Observation Value Comments Source Systolic blood 2020-08-26 12:30:00 102 mm[Hg] [facility] Diastolic blood 2020-08-26 12:30:00 58 mm[Hg] [facility] Heart rate 2020-08-26 12:30:00 78 /min [facility] Body temperature 2020-08-26 12:30:00 36.83 [facility] Respiratory rate 2020-08-26 12:30:00 20 /min [facility] Oxygen saturation in 2020-08-26 12:30:00 96 /min [facility] Arterial blood by Medical Ce nter Pulse oximetry Body weight 2020-08-26 07:00:00 62.37 kg [facility] BMI 2020-08-26 07:00:00 22.20 kg/m2 [facility] Body height 2020-08-26 06:04:00 167.6 cm [facility] Procedures Procedure Date / Time Performed Performing Clinician Sourc e VANCOMYCIN LEVEL, TROUGH 2020-08-26 10:08:00 Jazzy Christian [facility] BASIC METABOLIC PANEL (7) 2020-08-26 03:11:00 Ella Urbina [facility] CBC (HEMOGRAM ONLY) 2020-08-26 03:11:00 Ella Urbina [facility] MAGNESIUM 2020-08-26 03:11:00 Ella Urbina [facility] PROTHROMBIN TIME/INR 2020-08-26 03:11:00 Ciara [facility] BASIC METABOLIC PANEL (7) 2020-08-25 05:49:00 Ciara [facility] CBC (HEMOGRAM ONLY) 2020-08-25 05:49:00 Ciara [facility] MAGNESIUM 2020-08-25 05:49:00 Ciara [facility] PROTHROMBIN TIME/INR 2020-08-25 05:49:00 Ciara [facility] VANCOMYCIN LEVEL, TROUGH 2020-08-24 10:10:00 AnahiJazzy Sheldon [facility] BASIC METABOLIC PANEL (7) 2020-08-24 05:26:00 Ciara [facility] CBC (HEMOGRAM ONLY) 2020-08-24 05:26:00 Ciara [facility] MAGNESIUM 2020-08-24 05:26:00 Ciara [facility] PROTHROMBIN TIME/INR 2020-08-24 05:26:00 Ciara [facility] BASIC METABOLIC PANEL (7) 2020-08-23 05:50:00 Ciara [facility] CBC (HEMOGRAM ONLY) 2020-08-23 05:50:00 Ciara [facility] MAGNESIUM 2020-08-23 05:50:00 Ciara [facility] PROTHROMBIN TIME/INR 2020-08-23 05:50:00 Ciara [facility] SARS-COV2/RT-PCR ([facility] & 2020-08-22 18:31:00 Elder Samaniego [facility] - REF LABS) [facility] XR CHEST 1 VIEW 2020-08-22 13:51:00 Ciara [facility]/BEDSIDE Medical Gary ECG 12-LEAD 2020-08-22 12:59:52 Unknown, Hl7 Doctor [facility] BASIC METABOLIC PANEL (7) 2020-08-22 05:15:00 Ciara [facility] CBC (HEMOGRAM ONLY) 2020-08-22 05:15:00 Ciara [facility] MAGNESIUM 2020-08-22 05:15:00 Ciara [facility] PROTHROMBIN TIME/INR 2020-08-22 05:15:00 Ciara [facility] XR CHEST 1 VIEW 2020-08-21 10:23:00 Ciara [facility]/BEDSIDE [facility] BASIC METABOLIC PANEL (7) 2020-08-21 04:57:00 Ciara [facility] CBC (HEMOGRAM ONLY) 2020-08-21 04:57:00 Ciara [facility] MAGNESIUM 2020-08-21 04:57:00 Ciara [facility] PROTHROMBIN TIME/INR 2020-08-21 04:57:00 Ciara [facility] APTT 2020-08-20 06:24:00 Carito [facility] BASIC METABOLIC PANEL (7) 2020-08-20 03:41:00 Ciara [facility] CBC (HEMOGRAM ONLY) 2020-08-20 03:41:00 Ciara [facility] MAGNESIUM 2020-08-20 03:41:00 Ciara [facility] PROTHROMBIN TIME/INR 2020-08-20 03:41:00 Ciara [facility] VANCOMYCIN LEVEL, RANDOM 2020-08-20 03:41:00 Gayle Gallo [facility] CORTISOL 2020-08-20 03:41:00 Ciara [facility] APTT 2020-08-20 03:41:00 Carito [facility] APTT 2020-08-19 18:24:00 Ciara [facility] BASIC METABOLIC PANEL (7) 2020-08-19 10:38:00 Ciara [facility] MAGNESIUM 2020-08-19 10:38:00 Ciara [facility] VANCOMYCIN LEVEL, TROUGH 2020-08-19 10:38:00 Gayle Gallo [facility] APTT 2020-08-19 10:37:00 Carito [facility] CBC (HEMOGRAM ONLY) 2020-08-19 10:37:00 Ciara [facility] PROTHROMBIN TIME/INR 2020-08-19 10:37:00 Ciara [facility] APTT 2020-08-18 21:41:00 Carito [facility] BLOOD CULTURE 2020-08-18 12:13:00 Gayle Gallo [facility] BLOOD CULTURE 2020-08-18 12:12:00 Gayle Gallo [facility] APTT 2020-08-18 12:07:00 Carito [facility] BASIC METABOLIC PANEL (7) 2020-08-18 12:06:00 CiraaElla [facility] MAGNESIUM 2020-08-18 12:06:00 Ciara [facility] VANCOMYCIN LEVEL, TROUGH 2020-08-18 12:06:00 Ofherman [facility] PROTHROMBIN TIME/INR 2020-08-18 06:09:00 Carito [facility] CBC (HEMOGRAM ONLY) 2020-08-18 06:09:00 Carito [facility] APTT 2020-08-18 01:19:00 Carito [facility] CBC (HEMOGRAM ONLY) 2020-08-17 22:20:00 Carito [facility] APTT 2020-08-17 22:20:00 Carito [facility] URINALYSIS W/ REFLEX 2020-08-17 15:36:00 DanetteElder [facility] - URINE CULTURE [facility] APTT 2020-08-17 14:29:00 Carito [facility] XR CHEST 1 VIEW 2020-08-17 05:01:00 Mike [facility] BLOOD CULTURE 2020-08-17 03:45:[address] [facility] BLOOD CULTURE 2020-08-17 03:36:[address] [facility] PROTHROMBIN TIME/INR 2020-08-17 03:36:[facility] 2020-08-17 03:36:00 Carito [facility] COMPREHENSIVE METABOLIC 2020-08-16 23:38:00 Mike [facility] CBC W/PLT COUNT & AUTO 2020-08-16 23:38:00 Mike [facility] LACTIC ACID, VENOUS 2020-08-16 23:38:[address] [facility] APTT 2020-08-16 23:38:00 [facility] 2020-08-16 22:04:[address] [facility] POCT-ACT 2020-08-16 16:56:00 [facility] PERIPHERAL ANGIOS / 2020-08-16 15:37:00 Danette Elder [facility] S t kes - AORTOGRAM [facility] PROTHROMBIN TIME/INR 2020-08-16 10:48:00 [facility] 2020-08-16 10:48:00 [facility] (HEMO[facility] ONLY) 2020-08-16 02:58:00 [facility] 2020-08-16 02:58:00 Carito, [facility] MR LUMBAR SPINE WITHOUT 2020-08-15 22:08:00 Geraldine Sanchez I [facility] - IV CONTRAST [facility] SARS-COV2/RT-PCR ([facility] & 2020-08-15 15:08:00 Elder Samaniego [facility] - REF LABS) [facility] CBC (HEMOGRAM ONLY) 2020-08-15 15:06:00 Carito, [facility] APTT 2020-08-15 15:06:00 Carito, [facility] HC ARTERIAL DOPPLER LEGS 2020-08-15 10:28:00 Lonnie Lim I [facility] CBC (HEMOGRAM ONLY) 2020-08-15 05:24:00 Carito, [facility] APTT 2020-08-15 05:24:00 Carito, [facility] PROTHROMBIN TIME/INR 2020-08-15 05:24:00 Carito, [facility] APTT 2020-08-14 20:20:00 Carito, [facility] CBC (HEMOGRAM ONLY) 2020-08-14 18:56:00 Carito, [facility] APTT 2020-08-14 18:35:00 Carito, [facility] APTT 2020-08-14 10:55:00 Carito, [facility] APTT 2020-08-14 08:46:00 Carito, [facility] CT LUMBAR SPINE WITH IV 2020-08-14 07:45:00 Carito, [facility] PROTHROMBIN TIME/INR 2020-08-14 06:05:00 Abhinav Arzate [facility] CBC (HEMOGRAM ONLY) 2020-08-14 06:04:00 Carito [facility] BASIC METABOLIC PANEL (7) 2020-08-13 22:39:00 Mackenzie Arzate i [facility] APTT 2020-08-13 22:39:00 [facility]SE [facility]ER 2020-08-13 18:02:00 Carito [facility] POCT-GLUCOSE METER 2020-08-13 12:41:00 Carito [facility] APTT 2020-08-13 12:08:00 Carito, [facility] POCT-GLUCOSE METER 2020-08-13 08:43:00 Carito [facility] PROTHROMBIN TIME/INR 2020-08-13 05:46:00 Carito [facility] CBC (HEMOGRAM ONLY) 2020-08-13 05:46:00 Carito [facility] APTT 2020-08-13 05:46:00 [facility] POCT-GLUCOSE METER 2020-08-12 21:35:00 [facility] APTT 2020-08-12 20:49:00 Carito [facility] APTT 2020-08-12 08:52:00 Carito [facility] PROTHROMBIN TIME/INR 2020-08-12 05:35:00 Carito, [facility] CBC (HEMOGRAM ONLY) 2020-08-12 05:35:00 Carito, [facility] CBC (HEMOGRAM ONLY) 2020-08-11 23:53:00 Carito [facility] APTT 2020-08-11 23:53:00 Carito [facility] PLATELET COUNT 2020-08-11 15:08:00 Carito [facility] APTT 2020-08-11 15:08:00 Carito [facility] CBC (HEMOGRAM ONLY) 2020-08-11 15:08:00 Carito [facility] HEMOGLOBIN AND HEMATOCRIT 2020-08-11 08:57:00 [facility] POCT-GLUCOSE METER 2020-08-11 06:40:00 Carito [facility] PROTHROMBIN TIME/INR 2020-08-11 03:35:00 Carito [facility] PREPARE LEUKO-REDUCED RBC 2020-08-10 23:54:00 Soheila Infante [facility] POCT-GLUCOSE METER 2020-08-10 17:56:00 Carito [facility] OCCULT BLOOD, STOOL 2020-08-10 13:11:00 Carito [facility] POCT-GLUCOSE METER 2020-08-10 12:44:00 Carito [facility] HC ARTERIAL(JULIO W 2020-08-10 10:26:00 Craito [facility] POCT-GLUCOSE METER 2020-08-10 09:35:00 Carito [facility] CBC W/PLT COUNT & AUTO 2020-08-10 08:29:00 Abhinav Arzate [facility] BASIC METABOLIC PANEL (7) 2020-08-10 08:29:00 Mackenzie Arzate i [facility] PROTHROMBIN TIME/INR 2020-08-10 08:29:00 Abhinav Arzate [facility] POCT-GLUCOSE METER 2020-08-10 06:49:00 Carito [facility] TRANSFUSE LEUKO-REDUCED 2020-08-09 13:40:39 Soheila Infante [facility] - RED BLOOD CELLS [facility] POCT-GLUCOSE METER 2020-08-09 12:31:00 Carito [facility] TROPONIN I 2020-08-09 12:30:[address] [facility] 2D ECHO W/ DOPPLER 2020-08-09 10:44:27 Soheila Infante [facility] - (CW/PW/COLOR) [facility] TRANSFUSE LEUKO-REDUCED 2020-08-09 09:57:04 Soheila Infante [facility] - RED BLOOD CELLS [facility] SARS-COV2/INFLUENZA/RSV 2020-08-09 04:14:00 Katharina Segura [facility] - RT-PCR [facility] D-DIMER 2020-08-09 04:14:00 [facility] PT/APTT 2020-08-09 04:14:00 [facility] HAPTOGLOBIN 2020-08-09 04:14:00 DenisePatrick Smiley [facility] IRON, TIBC, % SAT. 2020-08-09 04:14:00 Patrick Segura [facility] (WITHOUT FERRITIN) [facility] 2020-08-09 04:14:00 Patrick Segura [facility] TROPONIN I 2020-08-09 04:14:00 Soheila Infante [facility] s - [facility] BASIC METABOLIC PANEL (7) 2020-08-09 04:14:00 Soheila Infante [facility] HEPATIC FUNCTION PANEL 2020-08-09 04:14:00 Soheila Infante [facility] CBC W/PLT COUNT & AUTO 2020-08-09 04:14:00 Soheila Infante [facility] DIFFERENTIAL [facility] TYPE AND SCREEN, 2020-08-09 04:14:00 [facility] t kes - AUTOMATED [facility] XR CHEST 1 VIEW 2020-08-08 23:29:00 Patrick Segura [facility] - PORTABLE/BEDSIDE [facility] CRITICAL CARE 2020-08-08 23:01:51 [facility] - [facility] CBC W/PLT COUNT & AUTO 2020-08-08 22:50:00 Ronel Villafuerte [facility] BASIC METABOLIC PANEL (7) 2020-08-08 22:50:00 Ronel Villafuerte CH, I [facility] TROPONIN I 2020-08-08 22:50:00 Ronel Villafuerte [facility] B-TYPE NATRIURETIC FACTOR 2020-08-08 22:50:00 Ronel Villafuerte CH, I [facility] (BNP) [facility] LACTATE DEHYDROGENASE 2020-08-08 22:50:00 [facility] HospitalPatrick [facility] (LDH) [facility] ECG 12-LEAD 2020-08-08 22:22:31 Unknown, Hl7 Doctor [facility] CARDIAC CATH REPORT - 2020-08-08 00:00:00 Provider, Default [facility] SCAN Scanning [facility] REPORT OF PROCEDURE - 2020-08-08 00:00:00 Provider, Default [facility] ENDOSCOPY SCAN [facility] Plan of Care Planned Activity Planned Date Details Comments Source Future Scheduled 2021-08-[address] [facility] - Test 00:00[facility]00 [facility] colon (procedure) [code = 923940427] Future Scheduled 2020-08-[address] [facility] - Test 00:00:00 (12+) [code = Medical Center DEPRESSION SCREENING (12+)] Future Scheduled 2020-04-[address] [facility] - Test 00:00:00 (#1) [code = Medical Center INFLUENZA VACCINE (#1)] Future Scheduled 2019-08-[address] [facility] - Test 00:00:00 WELLNESS (YEAR 2 or Medical Center FIRST YEAR if no IPPE) [code = MEDICARE ANNUAL WELLNESS (YEAR 2 or FIRST YEAR if no IPPE)] Future Scheduled 2018-10-[address] [facility] - Test 00:00:00 (procedure) [code = [facility] [id number]] Future Scheduled 2009 SHINGLES VACCINES ([address] [facility] - Test 00:00:00 of 2) [code = Medical Center SHINGLES VACCINES (1 of 2)] Future Scheduled [address] [facility] - Test 00:00:00 malignant neoplasm of [facility] [place] cervix (procedure) [code = 755817763] Future Scheduled 1978 DTAP/TDAP/TD VACCINES [facility] - Test 00:00:00 (1 - Tdap) [code = Medical C enter DTAP/TDAP/TD VACCINES (1 - Tdap)] Future Scheduled 1977 HEPATITIS C SCREENING [facility] - Test 00:00:00 [code = HEPATITIS C [facility] SCREENING] Future Scheduled [address] [facility] - Test 00:00:00 [facility] breast (procedure) [code = 419518546] Results Test Description Test Time Test Comments Results Result Sourc e Comments CARDIAC CATH 2020-09-03 Ordered by an HUGO Cai kes REPORT - SCAN 08:47:52 unspecified - Medical provider. Center Vancomycin level, trough 2020-08-26 11:37:00 Test Item Value Reference Range Interpretation Comme nts Vancomycin Tr (test code = 4092-3) 15.8 ug/mL 10-20 [place] (test code = [place]) Lighting Fixtures Decorator ID - CAROLYNN C Lab Interpretation (test code = 55045-5) [facility] [id number] 11:37:00 Test Item Value Reference Range Interpretation Comments VANCOMYCIN TROUGH (BEAKER) (test 15.8 ug/mL 10.0-20.0 code = 522) Lighting Fixtures Decorator ID - CAROLYNN Burrell Prothrombin time/INR while on [id number] 04:41:00 Test Item Value Reference Interpretation Comments Range Protime (test code = 35.8 See_Comment H [Autom ated 5902-2) message] The system which generated this result transmitted reference range : 11.9 - 14.2 seconds. The reference range was not used to interpret this result as normal/abnormal . INR (test code = 3.69 See_Comment [Automated 6301-6) message] The system which generated this result transmitted reference range : <=5.90. The reference range was not used to interpret this result as normal/abnormal . [place] (test code = Effective 12/31/2018: [place]) PT Reference Range ChangeNew: 11.9-14.2 Previous: 11.7-14.7 RECOMMENDED COUMADIN/WARFARIN INR THERAPY RANGESSTANDARD DOSE: 2.0-3.0 Includes: PROPHYLAXIS for venous thrombosis, systemic embolization; TREATMENT for venous thrombosis and/or pulmonary embolus.HIGH RISK: Target INR is 2.5-3.5 for patients wiht mechanical heart valves. While on warfarin. Lab Interpretation Abnormal (test code = 54480-8) [facility][id number] 04:41:00 Test Item Value Reference Range Interpretation Comments PROTIME (BEAKER) (test code = 35.8 seconds 11.9-14.2 H 759) INR (BEAKER) (test code = 370) 3.69 <=5.90 Effective 12/31/2018: PT Reference Range ChangeNew: 11.9-14.2 Previous: 11.7- 14.7RECOMMENDED COUMADIN/WARFARIN INR THERAPY RANGESSTANDARD DOSE: 2.0-3.0 Includes: PROPHYLAXIS for venous thrombosis, systemic embolization; TREATMENT for venous thrombosis and/or pulmonary embolus.HIGH RISK: Target INR is2.5-3.5 for patients wiht mechanical heart valves.While on warfarin.Basic Metabolic [id number] 04:00:00 Test Item Value Reference Range Interpretation Comments Sodium (test code = 139 meq/L 279-486 2128-2) Potassium (test code = 4.3 meq/L 3.5-5.1 Speci men slightly 2823-3) hemolyzed Chloride (test code = 98 meq/L 98-107 2075-0) CO2 (test code = 34 meq/L 22-29 H 2028-9) BUN (test code = 18 mg/dL 7-21 3094-0) Creatinine (test code 0.92 mg/dL 0.57-1.25 Specim en slightly = 2160-0) hemolyzed Glucose (test code = 104 mg/dL 70-105 2345-7) Calcium (test code = 8.4 mg/dL 8.4-10.2 31723-5) EGFR (test code = 62 mL/min/1.[place] [address]-2) NOT ACCURATE CREATININE CLEARANCE IN PREDICTING GLOMERULAR FILTRATION RATE . ESTIMATED GFR I S NOT APPLICABLE FOR DIALYSIS PATIENTS. [place] (test code = [place]) Lighting Fixtures Decorator ID - RISHI W Lab Interpretation Abnormal (test code = 59399-1) [facility] 04:00:00 Test Item Value Reference Range Interpretation Comments Magnesium (test code = 2.0 mg/dL 1.6-2.6 Speci men 31676-2) slightly hemolyzed [place] (test code = [place]) Lighting Fixtures Decorator ID - RISHI W Lab Interpretation Normal (test code = 69554-8) [facility] 04:00:00 Test Item Value Reference Range Interpretation Comments MAGNESIUM (BEAKER) 2.0 mg/dL 1.6-2.6 Specimen slightly (test code = 627) hemolyzed Lighting Fixtures Decorator ID - RISHI WBASIC METABOLIC [id number] 04:00:00 Test Item Value Reference Range Interpretation Comments SODIUM (BEAKER) 139 meq/L 136-145 (test code = 381) POTASSIUM (BEAKER) 4.3 meq/L 3.5-5.1 Specimen slightly (test code = 379) hemolyzed CHLORIDE (BEAKER) 98 meq/L 98-107 (test code = 382) CO2 (BEAKER) (test 34 meq/L 22-29 H code = 355) BLOOD UREA NITROGEN 18 mg/dL 7-21 (BEAKER) (test code = 354) CREATININE (BEAKER) 0.92 mg/dL 0.57-1.25 Specimen slightly (test code = 358) hemolyzed GLUCOSE RANDOM 104 mg/dL 70-105 (BEAKER) (test code = 652) CALCIUM (BEAKER) 8.4 mg/dL 8.4-10.2 (test code = 697) EGFR (BEAKER) (test 62 mL/min/1.73 ESTIMA DENNY GFR IS code = 1092) sq m NOT ACCURATE CREATININE CLEARANCE IN PREDICTING GLOMERULAR FILTRATION RATE . ESTIMATED GFR I S NOT APPLICABLE FOR DIALYSIS PATIEN TS. Lighting Fixtures Decorator ID - RISHI WCBC (hemogram only)2020-08-26 03:21:00 Test Item Value Reference Range Interpretation Comments WBC (test code = 6690-2) 4.8 See_Comment [A utomated message] The system [employer] generated this result transmitted ref erence range: 3.5 - 10 .5 K/L. The refe rence range was not u sed to interpret this result as normal/abnor mal. RBC (test code = 789-8) 3.06 See_Comment L [Au tomated message] The system [employer] generated this result transmitted ref erence range: 3.93 - 5 .22 M/L. The refe rence range was not u sed to interpret this result as normal/abnor mal. MCHC (test code = 786-4) 28.7 See_Comment L [A utomated message] The system [employer] generated this result transmitted ref erence range: 32.2 - 3 5.5 GM/DL. The refe rence range was not u sed to interpret this result as normal/abnor mal. Hematocrit (test code = 28.6 % 34.1-44.9 L 4544-3) MCV (test code = 787-2) 93.5 fL 79.4-94.8 MCH (test code = 785-6) 26.8 pg 25.6-32.2 RDW (test code = 788-0) 18.2 % 11.7-14.4 H Platelets (test code = 353 See_Comment [Aut omated message] 777-3) The system [employer] generated this result transmitted ref erence range: 150 - 45 0 K/CU MM. The referen ce range was not u sed to interpret this result as normal/abnor mal. MPV (test code = 9.7 fL 9.4-12.3 70327-1) nRBC (test code = 413) 0 See_Comment [Aut omated message] The system [employer] generated this result transmitted ref erence range: 0 - 0 /1 00 WBC. The refere nce range was not u sed to interpret this result as normal/abnor mal. Lab Interpretation (test Abnormal code = 02386-6) [facility] (HEMOGRAM ONLY)2020-08-26 03:21:00 Test Item Value Reference Range Interpretation Comments WHITE BLOOD CELL COUNT (BEAKER) 4.8 K/ L 3.5-10.5 (test code = 775) RED BLOOD CELL COUNT (BEAKER) 3.06 M/ L 3.93-5.22 L (test code = 761) HEMOGLOBIN (BEAKER) (test code = 8.2 GM/DL 11.2-15.7 L 410) HEMATOCRIT (BEAKER) (test code = 28.6 % 34.1-44.9 L 411) MEAN CORPUSCULAR VOLUME (BEAKER) 93.5 fL 79.4-94.8 (test code = 753) MEAN CORPUSCULAR HEMOGLOBIN 26.8 pg 25.6-32.2 (BEAKER) (test code = 751) MEAN CORPUSCULAR HEMOGLOBIN CONC 28.7 GM/DL 32.2-35.5 L (BEAKER) (test code = 752) RED CELL DISTRIBUTION WIDTH 18.2 % 11.7-14.4 H (BEAKER) (test code = 412) PLATELET COUNT (BEAKER) (test 353 K/CU MM 150-450 code = 756) MEAN PLATELET VOLUME (BEAKER) 9.7 fL 9.4-12.3 (test code = 754) NUCLEATED RED BLOOD CELLS 0 /100 WBC 0-0 (BEAKER) (test code = 413) BASIC METABOLIC [id number] 08:10:00 Test Item Value Reference Range Interpretation Comments SODIUM (BEAKER) 138 meq/L 136-145 (test code = 381) POTASSIUM (BEAKER) 4.2 meq/L 3.5-5.1 (test code = 379) CHLORIDE (BEAKER) 96 meq/L 98-107 L (test code = 382) CO2 (BEAKER) (test 32 meq/L 22-29 H code = 355) BLOOD UREA NITROGEN 16 mg/dL 7-21 (BEAKER) (test code = 354) CREATININE (BEAKER) 0.79 mg/dL 0.57-1.25 (test code = 358) GLUCOSE RANDOM 82 mg/dL 70-105 (BEAKER) (test code = 652) CALCIUM (BEAKER) 8.6 mg/dL 8.4-10.2 (test code = 697) EGFR (BEAKER) (test 74 mL/min/1.73 ESTIMA DENNY GFR IS code = 1092) sq m NOT ACCURATE CREATININE CLEARANCE IN PREDICTING GLOMERULAR FILTRATION RATE . ESTIMATED GFR I S NOT APPLICABLE FOR DIALYSIS PATIEN TS. Lighting Fixtures Decorator ID - MIKE [id number] 08:10:00 Test Item Value Reference Range Interpretation Comments MAGNESIUM (BEAKER) (test code = 1.9 mg/dL 1.6-2.6 627) Lighting Fixtures Decorator ID - MIKE MPROTHROMBIN TIME/[id number] 06:19:00 Test Item Value Reference Range Interpretation Comments PROTIME (BEAKER) (test code = 29.9 seconds 11.9-14.2 H 759) INR (BEAKER) (test code = 370) 2.93 <=5.90 Effective 12/31/2018: PT Reference Range ChangeNew: 11.9-14.2 Previous: 11.7- 14.7RECOMMENDED COUMADIN/WARFARIN INR THERAPY RANGESSTANDARD DOSE: 2.0-3.0 Includes: PROPHYLAXIS for venous thrombosis, systemic embolization; TREATMENT for venous thrombosis and/or pulmonary embolus.HIGH RISK: Target INR is2.5-3.5 for patients wiht mechanical heart valves.While on warfarin.CBC (HEMOGRAM ONLY) 2020-08-25 06:08:00 Test Item Value Reference Range Interpretation Comments WHITE BLOOD CELL COUNT (BEAKER) 5.1 K/ L 3.5-10.5 (test code = 775) RED BLOOD CELL COUNT (BEAKER) 3.08 M/ L 3.93-5.22 L (test code = 761) HEMOGLOBIN (BEAKER) (test code = 8.4 GM/DL 11.2-15.7 L 410) HEMATOCRIT (BEAKER) (test code = 28.7 % 34.1-44.9 L 411) MEAN CORPUSCULAR VOLUME (BEAKER) 93.2 fL 79.4-94.8 (test code = 753) MEAN CORPUSCULAR HEMOGLOBIN 27.3 pg 25.6-32.2 (BEAKER) (test code = 751) MEAN CORPUSCULAR HEMOGLOBIN CONC 29.3 GM/DL 32.2-35.5 L (BEAKER) (test code = 752) RED CELL DISTRIBUTION WIDTH 18.0 % 11.7-14.4 H (BEAKER) (test code = 412) PLATELET COUNT (BEAKER) (test 376 K/CU MM 150-450 code = 756) MEAN PLATELET VOLUME (BEAKER) 10.1 fL 9.4-12.3 (test code = 754) NUCLEATED RED BLOOD CELLS 0 /100 WBC 0-0 (BEAKER) (test code = 413) VANCOMYCIN LEVEL, [id number] 10:41:00 Test Item Value Reference Range Interpretation Comments VANCOMYCIN TROUGH (BEAKER) (test 12.3 ug/mL 10.0-20.0 code = 522) Lighting Fixtures Decorator ID - LIZZIE FBASIC METABOLIC [id number] 06:40:00 Test Item Value Reference Range Interpretation Comments SODIUM (BEAKER) 141 meq/L 136-145 (test code = 381) POTASSIUM (BEAKER) 3.9 meq/L 3.5-5.1 (test code = 379) CHLORIDE (BEAKER) 99 meq/L 98-107 (test code = 382) CO2 (BEAKER) (test 36 meq/L 22-29 H code = 355) BLOOD UREA NITROGEN 15 mg/dL 7-21 (BEAKER) (test code = 354) CREATININE (BEAKER) 0.83 mg/dL 0.57-1.25 (test code = 358) GLUCOSE RANDOM 88 mg/dL 70-105 (BEAKER) (test code = 652) CALCIUM (BEAKER) 8.1 mg/dL 8.4-10.2 L (test code = 697) EGFR (BEAKER) (test 70 mL/min/1.73 ESTIMA DENNY GFR IS code = 1092) sq m NOT ACCURATE CREATININE CLEARANCE IN PREDICTING GLOMERULAR FILTRATION RATE . ESTIMATED GFR I S NOT APPLICABLE FOR DIALYSIS PATIEN TS. Lighting Fixtures Decorator ID - MIKE [id number] 06:40:00 Test Item Value Reference Range Interpretation Comments MAGNESIUM (BEAKER) (test code = 1.8 mg/dL 1.6-2.6 627) Lighting Fixtures Decorator ID - MIKE MPROTHROMBIN TIME/[id number] 05:59:00 Test Item Value Reference Range Interpretation Comments PROTIME (BEAKER) (test code = 24.2 seconds 11.9-14.2 H 759) INR (BEAKER) (test code = 370) 2.26 <=5.90 Effective 12/31/2018: PT Reference Range ChangeNew: 11.9-14.2 Previous: 11.7- 14.7RECOMMENDED COUMADIN/WARFARIN INR THERAPY RANGESSTANDARD DOSE: 2.0-3.0 Includes: PROPHYLAXIS for venous thrombosis, systemic embolization; TREATMENT for venous thrombosis and/or pulmonary embolus.HIGH RISK: Target INR is2.5-3.5 for patients wiht mechanical heart valves.While on warfarin.CBC (HEMOGRAM ONLY) 2020-08-24 05:40:00 Test Item Value Reference Range Interpretation Comments WHITE BLOOD CELL COUNT (BEAKER) 4.8 K/ L 3.5-10.5 (test code = 775) RED BLOOD CELL COUNT (BEAKER) 2.87 M/ L 3.93-5.22 L (test code = 761) HEMOGLOBIN (BEAKER) (test code = 7.7 GM/DL 11.2-15.7 L 410) HEMATOCRIT (BEAKER) (test code = 26.5 % 34.1-44.9 L 411) MEAN CORPUSCULAR VOLUME (BEAKER) 92.3 fL 79.4-94.8 (test code = 753) MEAN CORPUSCULAR HEMOGLOBIN 26.8 pg 25.6-32.2 (BEAKER) (test code = 751) MEAN CORPUSCULAR HEMOGLOBIN CONC 29.1 GM/DL 32.2-35.5 L (BEAKER) (test code = 752) RED CELL DISTRIBUTION WIDTH 17.2 % 11.7-14.4 H (BEAKER) (test code = 412) PLATELET COUNT (BEAKER) (test 325 K/CU MM 150-450 code = 756) MEAN PLATELET VOLUME (BEAKER) 10.2 fL 9.4-12.3 (test code = 754) NUCLEATED RED BLOOD CELLS 0 /100 WBC 0-0 (BEAKER) (test code = 413) Blood [id number] 13:00:00 Test Item Value Reference Range Interpretation Comments Result (test code = No growth in 5 days 6463-4) [id number] 13:00:00 Test Item Value Reference Range Interpretation Comments CULTURE (BEAKER) (test No growth in 5 days code = 1095) BLOOD [id number] 13:00:00 Test Item Value Reference Range Interpretation Comments CULTURE (BEAKER) (test No growth in 5 days code = 1095) BASIC METABOLIC [id number] 08:46:00 Test Item Value Reference Range Interpretation Comments SODIUM (BEAKER) 139 meq/L 136-145 (test code = 381) POTASSIUM (BEAKER) 4.2 meq/L 3.5-5.1 (test code = 379) CHLORIDE (BEAKER) 101 meq/L 98-107 (test code = 382) CO2 (BEAKER) (test 32 meq/L 22-29 H code = 355) BLOOD UREA NITROGEN 12 mg/dL 7-21 (BEAKER) (test code = 354) CREATININE (BEAKER) 0.79 mg/dL 0.57-1.25 (test code = 358) GLUCOSE RANDOM 88 mg/dL 70-105 (BEAKER) (test code = 652) CALCIUM (BEAKER) 8.1 mg/dL 8.4-10.2 L (test code = 697) EGFR (BEAKER) (test 74 mL/min/1.73 ESTIMA DENNY GFR IS code = 1092) sq m NOT ACCURATE CREATININE CLEARANCE IN PREDICTING GLOMERULAR FILTRATION RATE . ESTIMATED GFR I S NOT APPLICABLE FOR DIALYSIS PATIEN TS. Lighting Fixtures Decorator ID - MIKE [id number] 08:46:00 Test Item Value Reference Range Interpretation Comments MAGNESIUM (BEAKER) (test code = 1.8 mg/dL 1.6-2.6 627) Lighting Fixtures Decorator ID - MIKE MBLOOD [id number] 08:32:00 Test Item Value Reference Range Interpretation Comments CULTURE (BEAKER) METHICILLIN A From Aerobi c (test code = 1095) RESISTANT Bottle On ly STAPHYLOCOCCUS Methicillin AUREUS resistant Staphylococcus aureus Clindamycin (test S code = 10) Daptomycin (test S code = 59) Erythromycin (test R code = 4) Linezolid (test code S = 40) Nitrofurantoin (test S code = 23) Oxacillin (test code R = 14) Rifampin (test code S = 43) Tetracycline (test S code = 2) Trimethoprim + S Sulfamethoxazole (test code = 47) Vancomycin (test S code = 13) Ceftaroline (test Susceptible <=1 S code = 236) , Dose Dependent Susceptible >1 , Resistant GRAM STAIN RESULT From aerobic (BEAKER) (test code bottle only: gram = 1123) positive cocci in clusters SARS-CoV2/RT-PCR (Asymptomatic ONLY)2020-08-23 06:37:00 Test Item Value Reference Range Interpretation Comments SARS-COV2/RT-PCR Negative Not Detected, (test code = Negative, See 52835-9) external report for linked test SARS-COV-2 [facility] (test code = 18929-9) [place] (test code = Negative result for this [place]) test determines that SARS-CoV-2 RNA was not present in the specimen above the Limit of Detection (LOD). However, Negative results do not preclude SARS-CoV-2 infection and should not be used as the sole basis for treatment or patient management decisions. Negative results must be combined with clinical observations, patient history, and epidemiological information. A false negative result may occur if a specimen is improperly collected, transported or handled. A false negative result should be considered if patient's recent exposures or clinical presentation indicate that COVID-19 (SARS-CoV-2) is likely and diagnostic tests for other causes of illness are negative. Re-testing should be considered in cases of suspected false negatives. The limit of detection for this assay is 800 copies/mL. This SARS CoV-2 test is a real-time RT-PCR test intended for the qualitative detection of nucleic acid from SARS-CoV-2 in a nasopharyngeal swab specimen collected from individuals suspected of COVID-19 by their healthcare provider. This test has not been Food and Drug Administration (FDA) cleared or approved. This is a modified version of an approved Emergency Use Authorization (EUA) and is in the process of review by the FDA. Once authorized by the FDA, the issued EUA will be effective until the declaration that circumstances exist justifying the authorization of the emergency use of in vitro diagnostic tests for detection and/or diagnosis of COVID-19 is terminated under Section 564(b)(2) of the Act or the EUA is revoked under Section 564(g) of the Act. Fact Sheet for Healthcare Providers:https://www.[employer]/sites/default/f ramez/product/documents/F act_Sheet_HC_Providers_L xzd_SYGC-IeF-7.pdf Fact Sheet for Healthcare Patients:https://www.[employer]/sites/default/fi les/product/documents/Fa ct_Sheet_Patients_Lyra_S ARS-CoV-2.pdf Performing Laboratory:[facility] [place] [address] [facility]2020-08-23 06:37:00 Test Item Value Reference Range Interpretation Comments SARS-COV2/RT-PCR (test Negative Not Detected, Negative, code = 1441103) See external report for linked test SARS-COV-[address] [facility] (test code = 8044141) Negative result for this test determines that SARS-CoV-2 RNA was not present in the specimen above the Limit of Detection (LOD). However, Negative results do not preclude SARS-CoV-2 infection and should not be used as the sole basis for treatment or patient management decisions. Negative results mustbe combined with clinical observations, patient history, and epidemiological information. A false negative result may occur if a specimen is improperly collected, transported or handled. A false negative result should be considered if patient's recent exposures or clinical presentation indicate that COVID-19 (SARS-CoV-2) is likely and diagnostic tests for other causes of illness are negative. Re-testing should be considered in cases of suspected false negatives.The limit of detection for this assay is 800 copies/mL.This SARS CoV-2 test is a real-time RT-PCR test intended for the qualitative detection of nucleic acid from SARS-CoV-2 in a nasopharyngeal swab specimen collected from individuals susp ected of COVID-19 by their healthcare provider.This test has not been Food and Drug Administration (FDA) cleared or approved. This is a modified version of an approved Emergency Use Authorization (EUA) and is in the process of review by the FDA. Once authorized by the FDA, the issued EUA will be effective until the declaration that circumstances exist justifying the authorization of the emergency use of in vitro diagnostic tests for detection and/or diagnosis of COVID-19 is terminated under Section 564(b)(2) of the Act or the EUA is revoked under Section 564(g) of the Act.Fact Sheet for Healthcare Providers:https://www.[employer]/sites/default/files/product/documents/Fact_Shee m_NS_Dixktysqp_Radj_BRYK-BuR-8.pdfFact Sheet for Healthcare Patients:https://www.[employer]/sites/default/files/product/ documents/Fvhi_Vcmsi_Kordgkqn_Eexu_YBZF-PcV-8.pdfPerforming Laboratory:[facility], [place] [address]ISR 12 [id number] 06:32:55Interface, External Ris In - 08/23/2020 6:32 AM CSTVentricular Rate 75 BPMAtrial Rate 75 BPMP-R Interval 178 msQRS Duration 80 msQ-T Interval 418 msQTC Calculation(Bazett) 466 msP [place] 45 degreesR [place] 7 degreesT [place] 49 degreesNormal sinus rhythmNormal ECGWhen compared with ECG of 08-AUG-2020 22:22,Nonspecific T wave abnormality no longer evident in Inferior leadsNonspecific T wave abnormality no longer evident in Lateral leadsConfirmed by MD RAZIA, LESLEE Richardson ([id number]) on 08/23/2020 6:32:52 [facility] CenterPROTHR[facility]/[id number] 06:23:00 Test Item Value Reference Range Interpretation Comments PROTIME (BEAKER) (test code = 26.7 seconds 11.9-14.2 H 759) INR (BEAKER) (test code = 370) 2.56 <=5.90 Effective 12/31/2018: PT Reference Range ChangeNew: 11.9-14.2 Previous: 11.7- 14.7RECOMMENDED COUMADIN/WARFARIN INR THERAPY RANGESSTANDARD DOSE: 2.0-3.0 Includes: PROPHYLAXIS for venous thrombosis, systemic embolization; TREATMENT for venous thrombosis and/or pulmonary embolus.HIGH RISK: Target INR is2.5-3.5 for patients wiht mechanical heart valves.While on warfarin.CBC (HEMOGRAM ONLY) 2020-08-23 06:00:00 Test Item Value Reference Range Interpretation Comments WHITE BLOOD CELL COUNT (BEAKER) 5.3 K/ L 3.5-10.5 (test code = 775) RED BLOOD CELL COUNT (BEAKER) 3.01 M/ L 3.93-5.22 L (test code = 761) HEMOGLOBIN (BEAKER) (test code = 7.9 GM/DL 11.2-15.7 L 410) HEMATOCRIT (BEAKER) (test code = 27.4 % 34.1-44.9 L 411) MEAN CORPUSCULAR VOLUME (BEAKER) 91.0 fL 79.4-94.8 (test code = 753) MEAN CORPUSCULAR HEMOGLOBIN 26.2 pg 25.6-32.2 (BEAKER) (test code = 751) MEAN CORPUSCULAR HEMOGLOBIN CONC 28.8 GM/DL 32.2-35.5 L (BEAKER) (test code = 752) RED CELL DISTRIBUTION WIDTH 16.7 % 11.7-14.4 H (BEAKER) (test code = 412) PLATELET COUNT (BEAKER) (test 298 K/CU MM 150-450 code = 756) MEAN PLATELET VOLUME (BEAKER) 10.1 fL 9.4-12.3 (test code = 754) NUCLEATED RED BLOOD CELLS 0 /100 WBC 0-0 (BEAKER) (test code = 413) RAD, CHEST, 1 VIEW, NON [id number] 14:12:00Reason for exam:->chest painShould this be performed at the bedside?->Yes [facility]: 1960 Sex: FFINAL REPORT RAD, CHEST, 1 VIEW, NON DEPT INDICATION: chest pain COMPARISON: 08/21/2020 FINDINGS: Portable frontal view of the chest. IMPRESSION: Support Lines: PICC tip overlies the atriocaval junction Lungs and pleura: Mild bibasilar atelectasis. No focal pneumonia. No pneumothorax.Heart and mediastinum: Stable contours. Stable surgical changes.Additional findings: None. Signed: Adelaide Moore Verified Date/Time: 08/22/2020 14:12:21 Reading Location: [facility] Radiology Reading Room XR chest 1 view portable / [id number] 14:12:00Interface, External Ris In - 08/22/2020 2:14 PM CSTFINAL REPORT RAD, CHEST, 1 VIEW, NON DEPT INDICATION: chest pain COMPARISON: 08/21/2020 FINDINGS: Portable frontal view of the chest. IMPRESSION: Support Lines: PICC tip overlies the atriocaval junction Lungs and pleura: Mildbibasilar atelectasis. No focal pneumonia. No pneumothorax.Heart and mediastinum: Stable contours. Stable surgical changes.Additional findings: None. Signed: Adelaide Moore Verified Date/Time: 08/22/2020 14:12:21 Reading Location: [facility] Radiology [facility] [id number] 07:19:00 Test Item Value Reference Range Interpretation Comments SODIUM (BEAKER) 142 meq/L 136-145 (test code = 381) POTASSIUM (BEAKER) 4.1 meq/L 3.5-5.1 (test code = 379) CHLORIDE (BEAKER) 105 meq/L 98-107 (test code = 382) CO2 (BEAKER) (test 30 meq/L 22-29 H code = 355) BLOOD UREA NITROGEN 12 mg/dL 7-21 (BEAKER) (test code = 354) CREATININE (BEAKER) 0.69 mg/dL 0.57-1.25 (test code = 358) GLUCOSE RANDOM 84 mg/dL 70-105 (BEAKER) (test code = 652) CALCIUM (BEAKER) 8.1 mg/dL 8.4-10.2 L (test code = 697) EGFR (BEAKER) (test 86 mL/min/1.73 ESTIMA DENNY GFR IS code = 1092) sq m NOT ACCURATE CREATININE CLEARANCE IN PREDICTING GLOMERULAR FILTRATION RATE . ESTIMATED GFR I S NOT APPLICABLE FOR DIALYSIS PATIEN TS. Lighting Fixtures Decorator ID Dannie HEARN [id number] 07:19:00 Test Item Value Reference Range Interpretation Comments MAGNESIUM (BEAKER) (test code = 1.7 mg/dL 1.6-2.6 627) Lighting Fixtures Decorator ID - DHIRAJ LPROTHROMBIN TIME/[id number] 05:47:00 Test Item Value Reference Range Interpretation Comments PROTIME (BEAKER) (test code = 35.9 seconds 11.9-14.2 H 759) INR (BEAKER) (test code = 370) 3.71 <=5.90 Effective 12/31/2018: PT Reference Range ChangeNew: 11.9-14.2 Previous: 11.7- 14.7RECOMMENDED COUMADIN/WARFARIN INR THERAPY RANGESSTANDARD DOSE: 2.0-3.0 Includes: PROPHYLAXIS for venous thrombosis, systemic embolization; TREATMENT for venous thrombosis and/or pulmonary embolus.HIGH RISK: Target INR is2.5-3.5 for patients wiht mechanical heart valves.While on warfarin.CBC (HEMOGRAM ONLY) 2020-08-22 05:35:00 Test Item Value Reference Range Interpretation Comments WHITE BLOOD CELL COUNT (BEAKER) 3.9 K/ L 3.5-10.5 (test code = 775) RED BLOOD CELL COUNT (BEAKER) 2.71 M/ L 3.93-5.22 L (test code = 761) HEMOGLOBIN (BEAKER) (test code = 7.1 GM/DL 11.2-15.7 L 410) HEMATOCRIT (BEAKER) (test code = 24.8 % 34.1-44.9 L 411) MEAN CORPUSCULAR VOLUME (BEAKER) 91.5 fL 79.4-94.8 (test code = 753) MEAN CORPUSCULAR HEMOGLOBIN 26.2 pg 25.6-32.2 (BEAKER) (test code = 751) MEAN CORPUSCULAR HEMOGLOBIN CONC 28.6 GM/DL 32.2-35.5 L (BEAKER) (test code = 752) RED CELL DISTRIBUTION WIDTH 16.6 % 11.7-14.4 H (BEAKER) (test code = 412) PLATELET COUNT (BEAKER) (test 270 K/CU MM 150-450 code = 756) MEAN PLATELET VOLUME (BEAKER) 10.8 fL 9.4-12.3 (test code = 754) NUCLEATED RED BLOOD CELLS 0 /100 WBC 0-0 (BEAKER) (test code = 413) RAD, CHEST, 1 VIEW, NON [id number] 10:44:00Reason for exam:->PICC LINE PLACEMENTShould this be performed at the bedside?->Yes [facility] 1960 Sex: FFINAL REPORT EXAM: Chest one view COMPARISON: August 17, 2020 CLINICAL HISTORY: PICC insertion FINDINGS: There is interval insertion of a left arm PICC with its tip overlying the caval atrial junction. The cardiac size is within normal limits. There is no evidence of pulmonary consolidation, pleural effusion, or pneumothorax. The regional osseous structures are unremarkable. Signed: Regine Powersort Verified Date/Time: 08/21/2020 10:44:24 Reading Location: [address] Transitional Reading Room BASIC METABOLIC PANEL 2020-08-21 06:32:00 Test Item Value Reference Range Interpretation Comments SODIUM (BEAKER) 139 meq/L 136-145 (test code = 381) POTASSIUM (BEAKER) 4.3 meq/L 3.5-5.1 (test code = 379) CHLORIDE (BEAKER) 107 meq/L 98-107 (test code = 382) CO2 (BEAKER) (test 25 meq/L 22-29 code = 355) BLOOD UREA NITROGEN 12 mg/dL 7-21 (BEAKER) (test code = 354) CREATININE (BEAKER) 0.74 mg/dL 0.57-1.25 (test code = 358) GLUCOSE RANDOM 70 mg/dL 70-105 (BEAKER) (test code = 652) CALCIUM (BEAKER) 8.5 mg/dL 8.4-10.2 (test code = 697) EGFR (BEAKER) (test 80 mL/min/1.73 ESTIMA DENNY GFR IS code = 1092) sq m NOT ACCURATE CREATININE CLEARANCE IN PREDICTING GLOMERULAR FILTRATION RATE . ESTIMATED GFR I S NOT APPLICABLE FOR DIALYSIS PATIEN TS. Lighting Fixtures Decorator ID - PIAYA [id number] 06:32:00 Test Item Value Reference Range Interpretation Comments MAGNESIUM (BEAKER) (test code = 1.7 mg/dL 1.6-2.6 627) Lighting Fixtures Decorator ID - PIAYA LPROTHROMBIN TIME/[id number] 05:46:00 Test Item Value Reference Range Interpretation Comments PROTIME (BEAKER) (test code = 32.9 seconds 11.9-14.2 H 759) INR (BEAKER) (test code = 370) 3.31 <=5.90 Effective 12/31/2018: PT Reference Range ChangeNew: 11.9-14.2 Previous: 11.7- 14.7RECOMMENDED COUMADIN/WARFARIN INR THERAPY RANGESSTANDARD DOSE: 2.0-3.0 Includes: PROPHYLAXIS for venous thrombosis, systemic embolization; TREATMENT for venous thrombosis and/or pulmonary embolus.HIGH RISK: Target INR is2.5-3.5 for patients wiht mechanical heart valves.While on warfarin.CBC (HEMOGRAM ONLY) 2020-08-21 05:39:00 Test Item Value Reference Range Interpretation Comments WHITE BLOOD CELL COUNT (BEAKER) 3.0 K/ L 3.5-10.5 L (test code = 775) RED BLOOD CELL COUNT (BEAKER) 2.82 M/ L 3.93-5.22 L (test code = 761) HEMOGLOBIN (BEAKER) (test code = 7.6 GM/DL 11.2-15.7 L 410) HEMATOCRIT (BEAKER) (test code = 26.2 % 34.1-44.9 L 411) MEAN CORPUSCULAR VOLUME (BEAKER) 92.9 fL 79.4-94.8 (test code = 753) MEAN CORPUSCULAR HEMOGLOBIN 27.0 pg 25.6-32.2 (BEAKER) (test code = 751) MEAN CORPUSCULAR HEMOGLOBIN CONC 29.0 GM/DL 32.2-35.5 L (BEAKER) (test code = 752) RED CELL DISTRIBUTION WIDTH 16.5 % 11.7-14.4 H (BEAKER) (test code = 412) PLATELET COUNT (BEAKER) (test 274 K/CU MM 150-450 code = 756) MEAN PLATELET VOLUME (BEAKER) 10.9 fL 9.4-12.3 (test code = 754) NUCLEATED RED BLOOD CELLS 0 /100 WBC 0-0 (BEAKER) (test code = 413) BLOOD [id number] 11:12:00 Test Item Value Reference Range Interpretation Comments CULTURE A From Aerobic An d (BEAKER) (test Anaerobic Bot tles Same code = 1095) organism has be en isolated from cultures(s) of the same body site within 3 days. Repeat identification and susceptibility testing performed only after consultation wi th the clinical microb iology laboratory.Refe r to previous cultur e ofMethicillin resistant Staphylococcus aureus GRAM STAIN From aerobic and RESULT (BEAKER) anaerobic (test code = bottles: gram 1123) positive cocci in clusters BLOOD [id number] 11:10:00 Test Item Value Reference Range Interpretation Comments CULTURE A From Aerobic An d (BEAKER) (test Anaerobic Bot tles Same code = 1095) organism has be en isolated from cultures(s) of the same body site within 3 days. Repeat identification and susceptibility testing performed only after consultation wi the clinical microb iology laboratory.Refe r to previous cultur e ofMethicillin resistant Staphylococcus aureus GRAM STAIN From aerobic and RESULT (BEAKER) anaerobic (test code = bottles: gram 1123) positive cocci in clusters [id number] 06:49:00 Test Item Value Reference Range Interpretation Comments PTT (test code = 66.1 See_Comment H [Automated message] 81199-8) The system [employer] generated this result transmitted ref erence range: 22.5 - 3 6.0 seconds. The reference range was not used to int erpret this result as normal/abnormal . Lab Interpretation (test Abnormal code = 14680-3) [facility] Test Item Value Reference Range Interpretation Comments PARTIAL THROMBOPLASTIN TIME 66.1 seconds 22.5-36.0 H (BEAKER) (test code = 760) [id number] 05:54:00 Test Item Value Reference Range Interpretation Comments Cortisol, Total (test code 1.3 ug/dL 3.7-19.4 L = 2755) [place] (test code = [place]) Lighting Fixtures Decorator ID - EDASI Lab Interpretation (test Abnormal code = 50501-3) [facility] 05:54:00 Test Item Value Reference Range Interpretation Comments CORTISOL, TOTAL (BEAKER) (test code 1.3 ug/dL 3.7-19.4 L = 2755) Lighting Fixtures Decorator ID - EDASIVancomycin level, [id number] 05:29:00 Test Item Value Reference Range Interpretation Comments Vancomycin Rm (test 11.5 ug/mL code = 88784-6) [place] (test code = Reference Range: No [place]) NormalsOperator ID - MIKE M [facility] HospitalVANCOMYCIN LEVEL, [id number] 05:29:00 Test Item Value Reference Range Interpretation Comments VANCOMYCIN RANDOM (BEAKER) (test 11.5 ug/mL code = 523) Reference Range: No NormalsOperator ID - MIKE [id number] 04:51:00 Test Item Value Reference Range Interpretation Comments PARTIAL THROMBOPLASTIN TIME 171.9 seconds 22.5-36.0 HH (BEAKER) (test code = 760) While on warfarin.BASIC METABOLIC [id number] 04:25:00 Test Item Value Reference Range Interpretation Comments SODIUM (BEAKER) 139 meq/L 136-145 (test code = 381) POTASSIUM (BEAKER) 3.7 meq/L 3.5-5.1 (test code = 379) CHLORIDE (BEAKER) 107 meq/L 98-107 (test code = 382) CO2 (BEAKER) (test 28 meq/L 22-29 code = 355) BLOOD UREA NITROGEN 14 mg/dL 7-21 (BEAKER) (test code = 354) CREATININE (BEAKER) 0.74 mg/dL 0.57-1.25 (test code = 358) GLUCOSE RANDOM 81 mg/dL 70-105 (BEAKER) (test code = 652) CALCIUM (BEAKER) 7.8 mg/dL 8.4-10.2 L (test code = 697) EGFR (BEAKER) (test 80 mL/min/1.73 ESTIMA DENNY GFR IS code = 1092) sq m NOT ACCURATE CREATININE CLEARANCE IN PREDICTING GLOMERULAR FILTRATION RATE . ESTIMATED GFR I S NOT APPLICABLE FOR DIALYSIS PATIEN TS. Lighting Fixtures Decorator ID - EDASIPROTHROMBIN TIME/[id number] 04:17:00 Test Item Value Reference Range Interpretation Comments PROTIME (BEAKER) (test code = 25.5 seconds 11.9-14.2 H 759) INR (BEAKER) (test code = 370) 2.39 <=5.90 Effective 12/31/2018: PT Reference Range ChangeNew: 11.9-14.2 Previous: 11.7- 14.7RECOMMENDED COUMADIN/WARFARIN INR THERAPY RANGESSTANDARD DOSE: 2.0-3.0 Includes: PROPHYLAXIS for venous thrombosis, systemic embolization; TREATMENT for venous thrombosis and/or pulmonary embolus.HIGH RISK: Target INR is2.5-3.5 for patients wiht mechanical heart valves.While on warfarin.[id number] 04:11:00 Test Item Value Reference Range Interpretation Comments MAGNESIUM (BEAKER) (test code = 1.7 mg/dL 1.6-2.6 627) Lighting Fixtures Decorator ID - EDASICBC (HEMOGRAM ONLY)2020-08-20 03:51:00 Test Item Value Reference Range Interpretation Comments WHITE BLOOD CELL COUNT (BEAKER) 2.3 K/ L 3.5-10.5 L (test code = 775) RED BLOOD CELL COUNT (BEAKER) 2.72 M/ L 3.93-5.22 L (test code = 761) HEMOGLOBIN (BEAKER) (test code = 7.2 GM/DL 11.2-15.7 L 410) HEMATOCRIT (BEAKER) (test code = 24.6 % 34.1-44.9 L 411) MEAN CORPUSCULAR VOLUME (BEAKER) 90.4 fL 79.4-94.8 (test code = 753) MEAN CORPUSCULAR HEMOGLOBIN 26.5 pg 25.6-32.2 (BEAKER) (test code = 751) MEAN CORPUSCULAR HEMOGLOBIN CONC 29.3 GM/DL 32.2-35.5 L (BEAKER) (test code = 752) RED CELL DISTRIBUTION WIDTH 16.3 % 11.7-14.4 H (BEAKER) (test code = 412) PLATELET COUNT (BEAKER) (test 244 K/CU MM 150-450 code = 756) MEAN PLATELET VOLUME (BEAKER) 11.0 fL 9.4-12.3 (test code = 754) NUCLEATED RED BLOOD CELLS 0 /100 WBC 0-0 (BEAKER) (test code = 413) [id number] 18:55:00 Test Item Value Reference Range Interpretation Comments PARTIAL THROMBOPLASTIN TIME 60.3 seconds 22.5-36.0 H (BEAKER) (test code = 760) [id number] 11:08:00 Test Item Value Reference Range Interpretation Comments MAGNESIUM (BEAKER) 1.7 mg/dL 1.6-2.6 Specimen slightly (test code = 627) hemolyzed Lighting Fixtures Decorator ID - EDASIBASIC METABOLIC [id number] 11:08:00 Test Item Value Reference Range Interpretation Comments SODIUM (BEAKER) 138 meq/L 136-145 (test code = 381) POTASSIUM (BEAKER) 3.7 meq/L 3.5-5.1 Specimen slightly (test code = 379) hemolyzed CHLORIDE (BEAKER) 105 meq/L 98-107 (test code = 382) CO2 (BEAKER) (test 25 meq/L 22-29 code = 355) BLOOD UREA NITROGEN 15 mg/dL 7-21 (BEAKER) (test code = 354) CREATININE (BEAKER) 0.78 mg/dL 0.57-1.25 Specimen slightly (test code = 358) hemolyzed GLUCOSE RANDOM 119 mg/dL 70-105 H (BEAKER) (test code = 652) CALCIUM (BEAKER) 8.0 mg/dL 8.4-10.2 L (test code = 697) EGFR (BEAKER) (test 75 mL/min/1.73 ESTIMA DENNY GFR IS code = 1092) sq m NOT ACCURATE CREATININE CLEARANCE IN PREDICTING GLOMERULAR FILTRATION RATE . ESTIMATED GFR I S NOT APPLICABLE FOR DIALYSIS PATIEN TS. Lighting Fixtures Decorator ID - EDASIVANCOMYCIN LEVEL, [id number] 11:05:00 Test Item Value Reference Range Interpretation Comments VANCOMYCIN TROUGH (BEAKER) (test 27.4 ug/mL 10.0-20.0 H code = 522) Lighting Fixtures Decorator ID - [id number] 11:05:00 Test Item Value Reference Range Interpretation Comments PARTIAL THROMBOPLASTIN TIME 62.3 seconds 22.5-36.0 H (BEAKER) (test code = 760) While on warfarin.PROTHROMBIN TIME/[id number] 11:04:00 Test Item Value Reference Range Interpretation Comments PROTIME (BEAKER) (test code = 20.8 seconds 11.9-14.2 H 759) INR (BEAKER) (test code = 370) 1.84 <=5.90 Effective 12/31/2018: PT Reference Range ChangeNew: 11.9-14.2 Previous: 11.7- 14.7RECOMMENDED COUMADIN/WARFARIN INR THERAPY RANGESSTANDARD DOSE: 2.0-3.0 Includes: PROPHYLAXIS for venous thrombosis, systemic embolization; TREATMENT for venous thrombosis and/or pulmonary embolus.HIGH RISK: Target INR is2.5-3.5 for patients wiht mechanical heart valves.While on warfarin.CBC (HEMOGRAM ONLY) 2020-08-19 10:52:00 Test Item Value Reference Range Interpretation Comments WHITE BLOOD CELL COUNT (BEAKER) 2.6 K/ L 3.5-10.5 L (test code = 775) RED BLOOD CELL COUNT (BEAKER) 2.92 M/ L 3.93-5.22 L (test code = 761) HEMOGLOBIN (BEAKER) (test code = 7.9 GM/DL 11.2-15.7 L 410) HEMATOCRIT (BEAKER) (test code = 27.1 % 34.1-44.9 L 411) MEAN CORPUSCULAR VOLUME (BEAKER) 92.8 fL 79.4-94.8 (test code = 753) MEAN CORPUSCULAR HEMOGLOBIN 27.1 pg 25.6-32.2 (BEAKER) (test code = 751) MEAN CORPUSCULAR HEMOGLOBIN CONC 29.2 GM/DL 32.2-35.5 L (BEAKER) (test code = 752) RED CELL DISTRIBUTION WIDTH 16.3 % 11.7-14.4 H (BEAKER) (test code = 412) PLATELET COUNT (BEAKER) (test 228 K/CU MM 150-450 code = 756) MEAN PLATELET VOLUME (BEAKER) 11.0 fL 9.4-12.3 (test code = 754) NUCLEATED RED BLOOD CELLS 0 /100 WBC 0-0 (BEAKER) (test code = 413) [id number] 22:03:00 Test Item Value Reference Range Interpretation Comments PARTIAL THROMBOPLASTIN TIME 73.4 seconds 22.5-36.0 H (BEAKER) (test code = 760) BASIC METABOLIC [id number] 12:50:00 Test Item Value Reference Range Interpretation Comments SODIUM (BEAKER) 136 meq/L 136-145 (test code = 381) POTASSIUM (BEAKER) 3.8 meq/L 3.5-5.1 (test code = 379) CHLORIDE (BEAKER) 102 meq/L 98-107 (test code = 382) CO2 (BEAKER) (test 27 meq/L 22-29 code = 355) BLOOD UREA NITROGEN 17 mg/dL 7-21 (BEAKER) (test code = 354) CREATININE (BEAKER) 0.82 mg/dL 0.57-1.25 (test code = 358) GLUCOSE RANDOM 99 mg/dL 70-105 (BEAKER) (test code = 652) CALCIUM (BEAKER) 8.0 mg/dL 8.4-10.2 L (test code = 697) EGFR (BEAKER) (test 71 mL/min/1.73 ESTIMA DENNY GFR IS code = 1092) sq m NOT ACCURATE CREATININE CLEARANCE IN PREDICTING GLOMERULAR FILTRATION RATE . ESTIMATED GFR I S NOT APPLICABLE FOR DIALYSIS PATIEN TS. Lighting Fixtures Decorator ID - [id number] 12:50:00 Test Item Value Reference Range Interpretation Comments MAGNESIUM (BEAKER) (test code = 1.7 mg/dL 1.6-2.6 627) Lighting Fixtures Decorator ID - AAHAMIDVANCOMYCIN LEVEL, [id number] 12:49:00 Test Item Value Reference Range Interpretation Comments VANCOMYCIN TROUGH (BEAKER) (test 15.6 ug/mL 10.0-20.0 code = 522) Lighting Fixtures Decorator ID - [id number] 12:33:00 Test Item Value Reference Range Interpretation Comments PARTIAL THROMBOPLASTIN TIME 76.0 seconds 22.5-36.0 H (BEAKER) (test code = 760) PROTHROMBIN TIME/[id number] 07:04:00 Test Item Value Reference Range Interpretation Comments PROTIME (BEAKER) (test code = 16.4 seconds 11.9-14.2 H 759) INR (BEAKER) (test code = 370) 1.37 <=5.90 Effective 12/31/2018: PT Reference Range ChangeNew: 11.9-14.2 Previous: 11.7- 14.7RECOMMENDED COUMADIN/WARFARIN INR THERAPY RANGESSTANDARD DOSE: 2.0-3.0 Includes: PROPHYLAXIS for venous thrombosis, systemic embolization; TREATMENT for venous thrombosis and/or pulmonary embolus.HIGH RISK: Target INR is2.5-3.5 for patients wiht mechanical heart valves.While on warfarin.CBC (HEMOGRAM ONLY) 2020-08-18 06:41:00 Test Item Value Reference Range Interpretation Comments WHITE BLOOD CELL COUNT (BEAKER) 2.8 K/ L 3.5-10.5 L (test code = 775) RED BLOOD CELL COUNT (BEAKER) 3.75 M/ L 3.93-5.22 L (test code = 761) HEMOGLOBIN (BEAKER) (test code = 10.0 GM/DL 11.2-15.7 L 410) HEMATOCRIT (BEAKER) (test code = 34.1 % 34.1-44.9 411) MEAN CORPUSCULAR VOLUME (BEAKER) 90.9 fL 79.4-94.8 (test code = 753) MEAN CORPUSCULAR HEMOGLOBIN 26.7 pg 25.6-32.2 (BEAKER) (test code = 751) MEAN CORPUSCULAR HEMOGLOBIN CONC 29.3 GM/DL 32.2-35.5 L (BEAKER) (test code = 752) RED CELL DISTRIBUTION WIDTH 16.5 % 11.7-14.4 H (BEAKER) (test code = 412) PLATELET COUNT (BEAKER) (test 282 K/CU MM 150-450 code = 756) MEAN PLATELET VOLUME (BEAKER) 10.7 fL 9.4-12.3 (test code = 754) NUCLEATED RED BLOOD CELLS 0 /100 WBC 0-0 (BEAKER) (test code = 413) [id number] 01:47:00 Test Item Value Reference Range Interpretation Comments PARTIAL THROMBOPLASTIN TIME 37.7 seconds 22.5-36.0 H (BEAKER) (test code = 760) [id number] 22:54:00 Test Item Value Reference Range Interpretation Comments PARTIAL THROMBOPLASTIN TIME 133.5 seconds 22.5-36.0 H (BEAKER) (test code = 760) CBC (HEMOGRAM ONLY)2020-08-17 22:31:00 Test Item Value Reference Range Interpretation Comments WHITE BLOOD CELL COUNT (BEAKER) 2.7 K/ L 3.5-10.5 L (test code = 775) RED BLOOD CELL COUNT (BEAKER) 3.02 M/ L 3.93-5.22 L (test code = 761) HEMOGLOBIN (BEAKER) (test code = 8.1 GM/DL 11.2-15.7 L 410) HEMATOCRIT (BEAKER) (test code = 27.7 % 34.1-44.9 L 411) MEAN CORPUSCULAR VOLUME (BEAKER) 91.7 fL 79.4-94.8 (test code = 753) MEAN CORPUSCULAR HEMOGLOBIN 26.8 pg 25.6-32.2 (BEAKER) (test code = 751) MEAN CORPUSCULAR HEMOGLOBIN CONC 29.2 GM/DL 32.2-35.5 L (BEAKER) (test code = 752) RED CELL DISTRIBUTION WIDTH 16.3 % 11.7-14.4 H (BEAKER) (test code = 412) PLATELET COUNT (BEAKER) (test 273 K/CU MM 150-450 code = 756) MEAN PLATELET VOLUME (BEAKER) 10.4 fL 9.4-12.3 (test code = 754) NUCLEATED RED BLOOD CELLS 0 /100 WBC 0-0 (BEAKER) (test code = 413) Urinalysis w/Microscopic + Reflex to [id number] 16:12:00 Test Item Value Reference Range Interpretation Comments Color, UA (test code Yellow = 5778-6) Clarity, UA (test Clear code = 5767-9) Specific [place], UA 1.022 1.001-1.035 (test code = 5811-5) pH, UA (test code = 5.5 5.0-8.0 5803-2) Protein, UA (test Negative Negative code = 26273-7) Glucose, UA (test Negative Negative code = 365) Ketones, UA (test Negative Negative code = 2514-8) Bilirubin, UA (test Negative Negative code = 92405-8) Blood, UA (test code Negative Negative = 52144-3) Nitrite, UA (test Negative Negative code = 5802-4) Leukocytes, UA (test Small Negative A code = 5799-2) Urobilinogen, UA 0.2 mg/dL 0.2-1 (test code = 08714-8) RBC, UA (test code = <1 See_Comment [Autom ated 33478-6) message] The system which generated this result transmit denny reference range : /HPF. The reference range was not used to interpret this result as normal/abnormal . WBC, UA (test code = 1 See_Comment [Autom ated 5821-4) message] The system which generated this result transmit denny reference range : /HPF. The reference range was not used to interpret this result as normal/abnormal . Bacteria, UA (test Rare code = 14717-7) Mucus (test code = Rare 8247-9) Squam Epithel, UA 1 See_Comment [Automate d (test code = 75089-4) messag e] The system which generated this result transmit denny reference range : /HPF. The reference range was not used to interpret this result as normal/abnormal . Amorphous Crystals Rare (test code = 54499-2) Specimen Source (test code = 2795) [place] (test code = [place]) Lighting Fixtures Decorator ID - [auto]Lighting Fixtures Decorator ID - tech Lab Interpretation Abnormal (test code = 37910-7) [facility] [id number] 16:12:00 Test Item Value Reference Range Interpretation Comments COLOR (BEAKER) (test code = 470) Yellow CLARITY (BEAKER) (test code = 469) Clear SPECIFIC GRAVITY UA (BEAKER) (test 1.022 1.001-1.035 code = 468) PH UA (BEAKER) (test code = 467) 5.5 5.0-8.0 PROTEIN UA (BEAKER) (test code = Negative Negative 464) GLUCOSE UA (BEAKER) (test code = Negative Negative 365) KETONES UA (BEAKER) (test code = Negative Negative 371) BILIRUBIN UA (BEAKER) (test code = Negative Negative 462) BLOOD UA (BEAKER) (test code = 461) Negative Negative NITRITE UA (BEAKER) (test code = Negative Negative 465) LEUKOCYTE ESTERASE UA (BEAKER) Small Negative A (test code = 466) UROBILINOGEN UA (BEAKER) (test code 0.2 mg/dL 0.2-1.0 = 463) RBC UA (BEAKER) (test code = 519) < /HPF WBC UA (BEAKER) (test code = 520) 1 /HPF BACTERIA (BEAKER) (test code = 517) Rare MUCUS (BEAKER) (test code = 1574) Rare SQUAMOUS EPITHELIAL (BEAKER) (test 1 /HPF code = 516) AMORPHOUS CRYSTALS (BEAKER) (test Rare code = 1584) SOURCE(BEAKER) (test code = 2795) Lighting Fixtures Decorator ID - [auto]Lighting Fixtures Decorator ID - [id number] 14:59:00 Test Item Value Reference Range Interpretation Comments PARTIAL THROMBOPLASTIN TIME 85.2 seconds 22.5-36.0 H (BEAKER) (test code = 760) RAD, CHEST, 1 VIEW, NON [id number] 07:41:00Reason for exam:->feverShould this be performed at the bedside?->Yes [facility] 1960 Sex: FFINAL REPORT CLINICAL HISTORY: fever TECHNIQUE: 1 view of the chest. COMPARISON: 08/08/2020 IMPRESSION: There are no focal infiltrates or effusions. The cardiomediastinal silhouette is unchanged poststernotomy. Signed: Marie Lovell Verified Date/Time: 08/17/2020 07:41:21 Reading Location: [facility] Radiology Reading Room CBC (HEMOGRAM ONLY)2020-08-17 06:12:00 Test Item Value Reference Range Interpretation Comments WHITE BLOOD CELL COUNT (BEAKER) 5.2 K/ L 3.5-10.5 (test code = 775) RED BLOOD CELL COUNT (BEAKER) 3.79 M/ L 3.93-5.22 L (test code = 761) HEMOGLOBIN (BEAKER) (test code = 10.2 GM/DL 11.2-15.7 L 410) HEMATOCRIT (BEAKER) (test code = 35.2 % 34.1-44.9 411) MEAN CORPUSCULAR VOLUME (BEAKER) 92.9 fL 79.4-94.8 (test code = 753) MEAN CORPUSCULAR HEMOGLOBIN 26.9 pg 25.6-32.2 (BEAKER) (test code = 751) MEAN CORPUSCULAR HEMOGLOBIN CONC 29.0 GM/DL 32.2-35.5 L (BEAKER) (test code = 752) RED CELL DISTRIBUTION WIDTH 16.7 % 11.7-14.4 H (BEAKER) (test code = 412) PLATELET COUNT (BEAKER) (test 333 K/CU MM 150-450 code = 756) MEAN PLATELET VOLUME (BEAKER) 10.9 fL 9.4-12.3 (test code = 754) NUCLEATED RED BLOOD CELLS 0 /100 WBC 0-0 (BEAKER) (test code = 413) PROTHROMBIN TIME/[id number] 05:40:00 Test Item Value Reference Range Interpretation Comments PROTIME (BEAKER) (test code = 13.7 seconds 11.9-14.2 759) INR (BEAKER) (test code = 370) 1.09 <=5.90 Effective 12/31/2018: PT Reference Range ChangeNew: 11.9-14.2 Previous: 11.7- 14.7RECOMMENDED COUMADIN/WARFARIN INR THERAPY RANGESSTANDARD DOSE: 2.0-3.0 Includes: PROPHYLAXIS for venous thrombosis, systemic embolization; TREATMENT for venous thrombosis and/or pulmonary embolus.HIGH RISK: Target INR is2.5-3.5 for patients wiht mechanical heart valves.While on warfarin.Comprehensive metabolic [id number] 00:20:00 Test Item Value Reference Range Interpretation Comments Protein, Total (test 6.4 See_Comment [Autom ated code = 2885-2) message] The system which generated this result transmit denny reference range : 6.0 - 8.3 gm/dL . The reference range was not u sed to interpret th is result as normal/abnormal . Albumin (test code = 3.2 g/dL 3.5-5 L 39897-2) Alkaline Phosphatase 58 U/L 40-150 (test code = 6768-6) Total Bilirubin (test 0.4 mg/dL 0.2-1.2 code = 1975-2) Sodium (test code = 138 meq/L 844-830 1058-2) Potassium (test code 3.9 meq/L 3.5-5.1 = 2823-3) Chloride (test code = 102 meq/L 98-107 2075-0) CO2 (test code = 26 meq/L 22-29 8-9) BUN (test code = 20 mg/dL 7-21 3094-0) Creatinine (test code 0.98 mg/dL 0.57-1.25 = 2160-0) Glucose (test code = 91 mg/dL 70-105 2345-7) Calcium (test code = 8.5 mg/dL 8.4-10.2 33436-8) AST (test code = 22 U/L 5-34 1920-8) ALT (test code = 10 U/L 6-55 1742-6) EGFR (test code = 58 mL/min/1.[place] [address]-6) NOT ACCURATE CREATININE CLEARANCE IN PREDICTING GLOMERULAR FILTRATION RATE . ESTIMATED GFR I S NOT APPLICABLE FOR DIALYSIS PATIEN TS. [place] (test code = AUGUSTA) [employer] Decorator ID - PIAYA L Lab Interpretation Abnormal (test code = 51851-7) [facility] [id number] 00:20:00 Test Item Value Reference Range Interpretation Comments TOTAL PROTEIN 6.4 gm/dL 6.0-8.3 (BEAKER) (test code = 770) ALBUMIN (BEAKER) 3.2 g/dL 3.5-5.0 L (test code = 1145) ALKALINE PHOSPHATASE 58 U/L 40-150 (BEAKER) (test code = 346) BILIRUBIN TOTAL 0.4 mg/dL 0.2-1.2 (BEAKER) (test code = 377) SODIUM (BEAKER) (test 138 meq/L 136-145 code = 381) POTASSIUM (BEAKER) 3.9 meq/L 3.5-5.1 (test code = 379) CHLORIDE (BEAKER) 102 meq/L 98-107 (test code = 382) CO2 (BEAKER) (test 26 meq/L 22-29 code = 355) BLOOD UREA NITROGEN 20 mg/dL 7-21 (BEAKER) (test code = 354) CREATININE (BEAKER) 0.98 mg/dL 0.57-1.25 (test code = 358) GLUCOSE RANDOM 91 mg/dL 70-105 (BEAKER) (test code = 652) CALCIUM (BEAKER) 8.5 mg/dL 8.4-10.2 (test code = 697) AST (SGOT) (BEAKER) 22 U/L 5-34 (test code = 353) ALT (SGPT) (BEAKER) 10 U/L 6-55 (test code = 347) EGFR (BEAKER) (test 58 mL/min/1.73 ESTIMA DENNY GFR IS code = 1092) sq m NOT ACCURATE CREATININE CLEARANCE IN PREDICTING GLOMERULAR FILTRATION RATE . ESTIMATED GFR I S NOT APPLICABLE FOR DIALYSIS PATIEN TS. [employer] Decorator ID - PIAYA [id number] 00:02:00 Test Item Value Reference Range Interpretation Comments PARTIAL THROMBOPLASTIN TIME 93.3 seconds 22.5-36.0 H (BEAKER) (test code = 760) Lactic acid, [id number] 23:59:00 Test Item Value Reference Range Interpretation Comments Lactate, Venous (test code 1.55 mmol/L 0.5-2.2 = 2872) [place] (test code = [place]) Lighting Fixtures Decorator ID - DHIRAJ L Lab Interpretation (test Normal code = 79253-6) [facility] [id number] 23:59:00 Test Item Value Reference Range Interpretation Comments LACTATE BLOOD VENOUS (2) (BEAKER) 1.55 mmol/L 0.50-2.20 (test code = 2872) [employer] Fixtures Decorator ID - DHIRAJ LCBC with platelet count + automated [id number] 23:53:00 Test Item Value Reference Range Interpretation Comments WBC (test code = 6690-2) 5.6 See_Comment [A utomated message] The system [employer] generated this result transmitted ref erence range: 3.5 - 10 .5 K/L. The refe rence range was not u sed to interpret this result as normal/abnor mal. RBC (test code = 789-8) 3.14 See_Comment L [Au tomated message] The system [employer] generated this result transmitted ref erence range: 3.93 - 5 .22 M/L. The refe rence range was not u sed to interpret this result as normal/abnor mal. MCHC (test code = 786-4) 29.8 See_Comment L [A utomated message] The system [employer] generated this result transmitted ref erence range: 32.2 - 3 5.5 GM/DL. The refe rence range was not u sed to interpret this result as normal/abnor mal. Hematocrit (test code = 28.2 % 34.1-44.9 L 4544-3) MCV (test code = 787-2) 89.8 fL 79.4-94.8 MCH (test code = 785-6) 26.8 pg 25.6-32.2 RDW (test code = 788-0) 16.4 % 11.7-14.4 H Platelets (test code = 332 See_Comment [Aut omated message] 777-3) The system [employer] generated this result transmitted ref erence range: 150 - 45 0 K/CU MM. The referen ce range was not u sed to interpret this result as normal/abnor mal. MPV (test code = 10.3 fL 9.4-12.3 59879-3) nRBC (test code = 413) 0 See_Comment [Aut omated message] The system [employer] generated this result transmitted ref erence range: 0 - 0 /1 00 WBC. The refere nce range was not u sed to interpret this result as normal/abnor mal. % Neutros (test code = 85 % 429) % Lymphs (test code = 9 % 430) % Monos (test code = 6 % 431) % Eos (test code = 432) 0 % % Baso (test code = 437) 0 % # Neutros (test code = 4.73 See_Comment [Aut omated message] 670) The system [employer] generated this result transmitted ref erence range: 1.56 - 6 .13 K/L. The refe rence range was not u sed to interpret this result as normal/abnor mal. # Lymphs (test code = 0.49 See_Comment L [Auto mated message] 414) The system [employer] generated this result transmitted ref erence range: 1.18 - 3 .74 K/L. The refe rence range was not u sed to interpret this result as normal/abnor mal. # Monos (test code = 0.35 See_Comment [Autom ated message] 415) The system [employer] generated this result transmitted ref erence range: 0.24 - 0 .36 K/L. The refe rence range was not u sed to interpret this result as normal/abnor mal. # Eos (test code = 416) 0.00 See_Comment L [Au tomated message] The system [employer] generated this result transmitted ref erence range: 0.04 - 0 .36 K/L. The refe rence range was not u sed to interpret this result as normal/abnor mal. # Baso (test code = 417) 0.00 See_Comment L [A utomated message] The system whic h generated this result transmitted ref erence range: 0.01 - 0 .08 K/L. The refe rence range was not u sed to interpret this result as normal/abnor mal. Immature 0 % 0-1 Granulocytes-Relative (test code = 2801) Lab Interpretation (test Abnormal code = 09821-5) [facility] W/PLT COUNT & AUTO [id number] 23:53:00 Test Item Value Reference Range Interpretation Comments WHITE BLOOD CELL COUNT (BEAKER) 5.6 K/ L 3.5-10.5 (test code = 775) RED BLOOD CELL COUNT (BEAKER) 3.14 M/ L 3.93-5.22 L (test code = 761) HEMOGLOBIN (BEAKER) (test code = 8.4 GM/DL 11.2-15.7 L 410) HEMATOCRIT (BEAKER) (test code = 28.2 % 34.1-44.9 L 411) MEAN CORPUSCULAR VOLUME (BEAKER) 89.8 fL 79.4-94.8 (test code = 753) MEAN CORPUSCULAR HEMOGLOBIN 26.8 pg 25.6-32.2 (BEAKER) (test code = 751) MEAN CORPUSCULAR HEMOGLOBIN CONC 29.8 GM/DL 32.2-35.5 L (BEAKER) (test code = 752) RED CELL DISTRIBUTION WIDTH 16.4 % 11.7-14.4 H (BEAKER) (test code = 412) PLATELET COUNT (BEAKER) (test 332 K/CU MM 150-450 code = 756) MEAN PLATELET VOLUME (BEAKER) 10.3 fL 9.4-12.3 (test code = 754) NUCLEATED RED BLOOD CELLS 0 /100 WBC 0-0 (BEAKER) (test code = 413) NEUTROPHILS RELATIVE PERCENT 85 % (BEAKER) (test code = 429) LYMPHOCYTES RELATIVE PERCENT 9 % (BEAKER) (test code = 430) MONOCYTES RELATIVE PERCENT 6 % (BEAKER) (test code = 431) EOSINOPHILS RELATIVE PERCENT 0 % (BEAKER) (test code = 432) BASOPHILS RELATIVE PERCENT 0 % (BEAKER) (test code = 437) NEUTROPHILS ABSOLUTE COUNT 4.73 K/ L 1.56-6.13 (BEAKER) (test code = 670) LYMPHOCYTES ABSOLUTE COUNT 0.49 K/ L 1.18-3.74 L (BEAKER) (test code = 414) MONOCYTES ABSOLUTE COUNT (BEAKER) 0.35 K/ L 0.24-0.36 (test code = 415) EOSINOPHILS ABSOLUTE COUNT 0.00 K/ L 0.04-0.36 L (BEAKER) (test code = 416) BASOPHILS ABSOLUTE COUNT (BEAKER) 0.00 K/ L 0.01-0.08 L (test code = 417) IMMATURE GRANULOCYTES-RELATIVE 0 % 0-1 PERCENT (BEAKER) (test code = 2801) POC ACTIVATED CLOTTING [id number] 17:15:00 Test Item Value Reference Range Interpretation Comments Activated Clotting Time 241 sec : 74 -137 seconds, (test code = 441) Baseline: TESTED AT [address], [address]: Lighting Fixtures Decorator/Techni sandee ID = [id number] for DOMENIC TRACY RN [facility]POCT[id number] 17:15:00 Test Item Value Reference Range Interpretation Comments ACTIVATED CLOTTING TIME 241 sec : 74 -137 seconds, (BEAKER) (test code = Baseli ne: TESTED AT [address]) [facility] [address] [place] [address], [address]: Lighting Fixtures Decorator/Techni sandee ID = [id number] for DOMENIC TRACY RN [id number] 11:16:00 Test Item Value Reference Range Interpretation Comments PARTIAL THROMBOPLASTIN TIME 80.2 seconds 22.5-36.0 H (BEAKER) (test code = 760) While on warfarin.PROTHROMBIN TIME/[id number] 11:15:00 Test Item Value Reference Range Interpretation Comments PROTIME (BEAKER) (test code = 14.8 seconds 11.9-14.2 H 759) INR (BEAKER) (test code = 370) 1.19 <=5.90 Effective 12/31/2018: PT Reference Range ChangeNew: 11.9-14.2 Previous: 11.7- 14.7RECOMMENDED COUMADIN/WARFARIN INR THERAPY RANGESSTANDARD DOSE: 2.0-3.0 Includes: PROPHYLAXIS for venous thrombosis, systemic embolization; TREATMENT for venous thrombosis and/or pulmonary embolus.HIGH RISK: Target INR is2.5-3.5 for patients wiht mechanical heart valves.While on warfarin.Arterial doppler legs [id number] 07:44:53Ejection [facility] ECHO HEARTLAB MKCKESSON CPACSRight Impression1. The common femoral, profunda femoral, superficial femoral and poplitealarteries are patent with triphasic/biphasic Doppler waveforms throughout.2. The posterior tibial artery appears to be occluded.3. The peroneal artery is patent with biphasic Doppler waveforms.4. The mid to distal anterior tibial artery appears to be occluded withcollaterals visualized.Left Impression1. The common femoral, profunda femoral, superficial femoral and poplitealarteries are patent with triphasic/biphasic Doppler waveforms throughout.2. The proximal to mid posterior tibial artery appears to be occluded andthe distal segment has retrograde flow.3. The peroneal artery is patent with biphasic Doppler waveforms.4. The anterior tibial artery is patent with biphasic/monophasic Dopplerwaveforms. Conclusions Summary Arterial duplex was performed on thebilateral lower extremities. Arterial calcification was visualized throughout bilaterally. The bilateral common femoral, profunda femoral, superficial femoral and popliteal arteries were patent with tri phasic/biphasic Doppler waveforms throughout. The right posterior tibial artery was occluded. The bilateral peroneal arteries were patent with biphasic Doppler waveforms. The right mid to distal anterior tibial artery appeared to be occluded with collaterals visualized. The left proximal to mid posterior tibial artery appeared to be occluded and the distal segment had retrograde flow. The left anterior tibial artery was patent with biphasic/monophasic Doppler waveforms. Signature Velocities are measured in cm/s ; Diameters are measured in cm LE Duplex Measurements Right Left + + + -------+ + + + + + + !Location ! !PSV!EDV !Waveform ! !PSV !EDV !Waveform ! + + + + + + + + + + !Mid Common Femoral ! !173 ! ! ! !129 ! ! ! + + + + + + + + + + !Prox PFA ! !84.1 ! ! ! !59.8 ! ! ! + + + + + + + + + + !Prox SFA ! !84 ! ! ! !101 ! ! ! + + + + + + +--- + + + !Mid SFA ! !94.8 ! ! ! !108 ! ! ! + + + + + + + + + + !Dist SFA ! !85.1 ! ! ! !51.1 ! ! ! + + + + + + + + + + !Prox Popliteal ! !37.9 ! ! ! !50.1 !! ! + + +--------- + + + + + + + !Dist Popliteal ! !52.1 ! ! ! !48.7 ! ! ! + + + + + + + + + + !Prox ACCESSIONER ! !0 ! ! ! !0 ! ! ! + + + + + + + + + + !Mid ACCESSIONER ! !0 ! ! ! !0 ! ! ! + + + + + + + + + + !Dist ACCESSIONER ! !0 ! ! ! !20 ! ! ! + + + + + + + + + + !Prox JEEVAN ! !136 ! ! ! !153 ! ! ! + + + + + + + -----+ + + !Mid JEEVAN ! !0 ! ! ! !51.6 ! ! ! + + + + + + + + + + !Dist JEEVAN !!0 ! ! ! !43.4 ! ! ! + + +------ + + + + + + + !Prox Peroneal ! !127 ! ! ! !71.3 ! ! ! + + + + + + + + + + !Mid Peroneal ! !91.8 ! ! ! !64.8 ! ! ! + + + + + + + + + + !DistPeroneal ! !92.5 ! ! ! !67 ! ! ! + + + + + + + + + + Interface, ExternalRis In - 08/16/2020 7:45 AM CSTPV LAB - Lower Extremity Arterial Duplex Demographics Patient Name PRISCILLA WATTS Date of Study 08/15/2020 Age 60 Visit Number [id number] Gender Female Accession Number [id number] Date of 1960 Referring Lonnie Lim Room Number [id number] P hysician Pet Stylist Shilpa Acosta Interpreting Bijal Dhaliwal MD RVT Physician ProcedureType of Study: Extremities Arteries: Lower Extremities Arterial Duplex, ARTERIAL DOPPLER LEGS, BILATERAL. Indications for Study:PVD.Patient Status:Routine.Study Location:Vascular Lab.Technical Quality:Adequate visualization.Risk FactorsHistory of Disease+--------- +----+ +!Diagnosis !Date!Comments !+ +----+ +!History/Risk Factors: ! !current smoker !+-------- +----+ +ImpressionsRi t Impression1. Thecommon femoral, profunda femoral, superficial femoral and poplitealarteries are patent with triphasic/biphasic Doppler waveforms throughout.2. The posterior tibial artery appears to be occluded.3. The peroneal artery is patent with biphasic Doppler waveforms.4. The mid to distal anterior tibial arteryappears to be occluded withcollaterals visualized.Left Impression1. The common femoral, profunda femoral, superficial femoral and poplitealarteries are patent with triphasic/biphasic Doppler waveforms throughout.2. The proximal to mid posterior tibial artery appears to be occluded andthe distal segment has retrograde flow.3. The peroneal artery is patent with biphasic Doppler waveforms.4. The anterior tibial artery is patent with biphasic/monophasic Dopplerwaveforms. Conclusions Summary Arterial duplex was performed on the bilateral lower extremities. Arterial calcification was visualized throughout bilaterally. The bilateral common femoral, profunda femoral, superficial femoral and popliteal arteries were patent with triphasic/biphasic Doppler waveforms throughout. The right posterior tibial artery was occluded. The bilateral peroneal arteries were patent with biphasic Doppler waveforms. The right mid to distal anterior tibial artery appeared to be occluded with collaterals visualized. The left proximal to mid posterior tibial artery appeared to be occluded and the distal segment had retrograde flow. The left anterior tibial artery was patent with biphasic/monophasic Doppler waveforms. Signature Velocities are measured in cm/s ; Diameters are measured in cmLE Duplex Measurements Right Left + ---------+ + + + + + + + + !Location ! !PSV !EDV !Waveform ! !PSV !EDV !Waveform ! + + +-- + + + + + + + !Mid Common Femoral ! !173 ! ! ! !129 ! ! ! + + + + + + + + + + !Prox PFA ! !84.1 ! ! ! !59.8 ! ! ! + + + + + + + + + + !Prox SFA ! !84 ! ! ! !101 ! ! ! + + + + + + + + + + !Mid SFA ! !94.8 ! ! ! !108 ! ! ! + + + + + + + + + + !Dist SFA ! !85.1 ! ! ! !51.1 ! ! ! + + + + + + +------- + + + !Prox Popliteal ! !37.9 ! ! ! !50.1 ! ! ! + + + + + + + + + + !Dist Popliteal ! !52.1 ! ! ! !48.7 ! ! ! + + + + + + + + + + !Prox ACCESSIONER ! !0 ! ! ! !0 ! ! ! + + + + + + + + + + !Mid ACCESSIONER ! !0 ! ! ! !0 ! ! ! + + + + + + + + + + !Dist ACCESSIONER ! !0 ! ! ! !20 ! ! ! + + + + + + + + + + !Prox JEEVAN ! !136 ! ! ! !153 ! ! ! + + + + + + + + + + !Mid JEEVAN ! !0 ! !! !51.6 ! ! ! + + + + + + +---- + + + !Dist JEEVAN ! !0 ! ! ! !43.4 ! ! ! + + + + + + + + + + !Prox Peroneal ! !127 ! ! ! !71.3 ! ! ! + + + + + + + + + + !Mid Peroneal ! !91.8 ! ! ! !64.8 ! ! ! + + + ---------+ + + + + + + !Dist Peroneal ! !92.5 ! ! ! !67 ! ! ! + + + + + + + + + +[facility]MR[facility], LUM[facility], WITHOUT [id number] 07:05:00Unlisted Reason for Exam - Click Yes and Enter Reason Below->No [facility] : 1960 Sex: FFINAL REPORT MR, SPINE, LUMBAR, WITHOUT CONTRAST INDICATION: Back pain orradiculopathy, < 6 wks, uncomplicated COMPARISON: None TECHNIQUE: Multiplanar, multisequence MR images of the lumbar spine without contrast. FINDINGS: Numbering: Last fully formed disc space is designated L5-S1. Spinal cord: The conus medullaris is normal is size, signal intensity, and position, t erminating at the T12-L1 level. Osseous structures: The lumbar spine demonstrates normal alignmentwithout scoliosis or listhesis. Vertebral bodies are normal in height and signal intensity. No aggressive osseous lesions are identified. Discs: Disc desiccation and loss of height are greatest at the L4- 5 level. Evaluation of the individual levels demonstrates: L1/L2: No disc herniation, spinal canal stenosis, or neural foraminal narrowing. L2/L3: No disc herniation, spinal canal stenosis, or neural foraminal narrowing. L3/L4: No disc herniation, spinal canal stenosis, or neural foraminal narrowing. L4/L5: Central and left paracentral disc extrusion with inferior migration. Far lateral protrusion extends to the foraminal zone. Approximately 7 mm inferior migration. Moderate to severe left foraminal stenosis. L5/S1: Broad disc protrusion without canal or foraminal compromise. Paraspinal soft tissues: Right iliopsoas complex is relatively atrophic compared to the contralateral side. IMPRESSION: Left paracentral and lateral disc extrusion with 7 mm inferior migration. Moderate to severe left foraminal stenosis as a result. Signed: JR Alarcon Robert MDReport Verified Date/Time: 08/16/2020 07:05:14 Reading Location: [facility] C013V Neuro Reading Room MR spine lumbar without IV [id number] 07:05:00 Interface, External Ris In - 08/16/2020 7:07 AM CSTFINAL REPORT MR, SPINE, LUMBAR, WITHOUT CONTRAST INDICATION: Back pain or radiculopathy, < 6 wks, uncomplicated COMPARISON:None TECHNIQUE: Multiplanar, multisequence MR images of the lumbar spine without contrast. FINDINGS: Numbering: Last fully formed disc space is designated L5-S1. Spinal cord: The conus medullaris is normal is size, signal intensity, and position, terminating at the T12-L1 level. Osseous structures: The lumbar spine demonstrates normal alignment without scoliosis or listhesis. Vertebral bodies arenormal in height and signal intensity. No aggressive osseous lesions are identified. Discs: Disc desiccation and loss of height are greatest at the L4-5 level. Evaluation of the individual levels demonstrates: L1/L2: No disc herniation, spinal canal stenosis, or neural foraminal narrowing. L2/L3: Nodisc herniation, spinal canal stenosis, or neural foraminal narrowing. L3/L4: No disc herniation, spinal canal stenosis, or neural foraminal narrowing. L4/L5: Central and left paracentral disc extrusion with inferior migration. Far lateral protrusion extends to the foraminal zone. Approximately 7 mm inferior migration. Moderate to severe left foraminal stenosis. L5/S1: Broad disc protrusion without canal or foraminal compromise. Paraspinal soft tissues: Right iliopsoas complex is relatively atrophiccompared to the contralateral side. IMPRESSION: Left paracentral and lateral disc extrusion with 7 mm inferior migration. Moderate to severe left foraminal stenosis as a result. Signed: JR Alarcon Robert MDReport Verified Date/Time: 08/16/2020 07:05:14 Reading Location: [address] Neuro Reading Room [id number] 03:27:00 Test Item Value Reference Range Interpretation Comments PARTIAL THROMBOPLASTIN TIME 53.0 seconds 22.5-36.0 H (BEAKER) (test code = 760) CBC (HEMOGRAM ONLY)2020-08-16 03:06:00 Test Item Value Reference Range Interpretation Comments WHITE BLOOD CELL COUNT (BEAKER) 4.5 K/ L 3.5-10.5 (test code = 775) RED BLOOD CELL COUNT (BEAKER) 3.15 M/ L 3.93-5.22 L (test code = 761) HEMOGLOBIN (BEAKER) (test code = 8.7 GM/DL 11.2-15.7 L 410) HEMATOCRIT (BEAKER) (test code = 29.0 % 34.1-44.9 L 411) MEAN CORPUSCULAR VOLUME (BEAKER) 92.1 fL 79.4-94.8 (test code = 753) MEAN CORPUSCULAR HEMOGLOBIN 27.6 pg 25.6-32.2 (BEAKER) (test code = 751) MEAN CORPUSCULAR HEMOGLOBIN CONC 30.0 GM/DL 32.2-35.5 L (BEAKER) (test code = 752) RED CELL DISTRIBUTION WIDTH 16.7 % 11.7-14.4 H (BEAKER) (test code = 412) PLATELET COUNT (BEAKER) (test 363 K/CU MM 150-450 code = 756) MEAN PLATELET VOLUME (BEAKER) 10.3 fL 9.4-12.3 (test code = 754) NUCLEATED RED BLOOD CELLS 0 /100 WBC 0-0 (BEAKER) (test code = 413) SARS-COV2/RT-PCR ([facility])2020-08-15 20:12:00 Test Item Value Reference Range Interpretation Comments SARS-COV2/RT-PCR (test Negative Not Detected, Negative, code = 2576913) See external report for linked test SARS-COV-2 [facility]FORM[facility] (test code = 5954055) Negative result for this test determines that SARS-CoV-2 RNA was not present in the specimen above the Limit of Detection (LOD). However, Negative results do not preclude SARS-CoV-2 infection and should not be used as the sole basis for treatment or patient management decisions. Negative results mustbe combined with clinical observations, patient history, and epidemiological information. A false negative result may occur if a specimen is improperly collected, transported or handled. A false negative result should be considered if patient's recent exposures or clinical presentation indicate that COVID-19 (SARS-CoV-2) is likely and diagnostic tests for other causes of illness are negative. Re-testing should be considered in cases of suspected false negatives.The limit of detection for this assay is 800 copies/mL.This SARS CoV-2 test is a real-time RT-PCR test intended for the qualitative detection of nucleic acid from SARS-CoV-2 in a nasopharyngeal swab specimen collected from individuals susp ected of COVID-19 by their healthcare provider.This test has not been Food and Drug Administration (FDA) cleared or approved. This is a modified version of an approved Emergency Use Authorization (EUA) and is in the process of review by the FDA. Once authorized by the FDA, the issued EUA will be effective until the declaration that circumstances exist justifying the authorization of the emergency use of in vitro diagnostic tests for detection and/or diagnosis of COVID-19 is terminated under Section 564(b)(2) of the Act or the EUA is revoked under Section 564(g) of the Act.Fact Sheet for Healthcare Providers:https://www.[employer]/sites/default/files/product/documents/Fact_Shee q_IV_Gvshqwxbv_Hwxq_AFZO-VqF-1.pdfFact Sheet for Healthcare Patients:https://www.[employer]/sites/default/files/product/ documents/Lyxy_Bupai_Jximjxig_Hbae_YWEN-VzL-0.pdfPerforming Laboratory:[facility] [place], [place] [address]qu[place], [place] [id number] 15:32:00 Test Item Value Reference Range Interpretation Comments PARTIAL THROMBOPLASTIN TIME 87.2 seconds 22.5-36.0 H (BEAKER) (test code = 760) CBC (HEMOGRAM ONLY)2020-08-15 15:21:00 Test Item Value Reference Range Interpretation Comments WHITE BLOOD CELL COUNT (BEAKER) 4.5 K/ L 3.5-10.5 (test code = 775) RED BLOOD CELL COUNT (BEAKER) 3.41 M/ L 3.93-5.22 L (test code = 761) HEMOGLOBIN (BEAKER) (test code = 9.3 GM/DL 11.2-15.7 L 410) HEMATOCRIT (BEAKER) (test code = 31.8 % 34.1-44.9 L 411) MEAN CORPUSCULAR VOLUME (BEAKER) 93.3 fL 79.4-94.8 (test code = 753) MEAN CORPUSCULAR HEMOGLOBIN 27.3 pg 25.6-32.2 (BEAKER) (test code = 751) MEAN CORPUSCULAR HEMOGLOBIN CONC 29.2 GM/DL 32.2-35.5 L (BEAKER) (test code = 752) RED CELL DISTRIBUTION WIDTH 17.0 % 11.7-14.4 H (BEAKER) (test code = 412) PLATELET COUNT (BEAKER) (test 380 K/CU MM 150-450 code = 756) MEAN PLATELET VOLUME (BEAKER) 9.8 fL 9.4-12.3 (test code = 754) NUCLEATED RED BLOOD CELLS 0 /100 WBC 0-0 (BEAKER) (test code = 413) [id number] 06:27:00 Test Item Value Reference Range Interpretation Comments PARTIAL THROMBOPLASTIN TIME 95.5 seconds 22.5-36.0 H (BEAKER) (test code = 760) While on warfarin.PROTHROMBIN TIME/[id number] 06:25:00 Test Item Value Reference Range Interpretation Comments PROTIME (BEAKER) (test code = 16.7 seconds 11.9-14.2 H 759) INR (BEAKER) (test code = 370) 1.39 <=5.90 Effective 12/31/2018: PT Reference Range ChangeNew: 11.9-14.2 Previous: 11.7- 14.7RECOMMENDED COUMADIN/WARFARIN INR THERAPY RANGESSTANDARD DOSE: 2.0-3.0 Includes: PROPHYLAXIS for venous thrombosis, systemic embolization; TREATMENT for venous thrombosis and/or pulmonary embolus.HIGH RISK: Target INR is2.5-3.5 for patients wiht mechanical heart valves.While on warfarin.CBC (HEMOGRAM ONLY) 2020-08-15 06:02:00 Test Item Value Reference Range Interpretation Comments WHITE BLOOD CELL COUNT (BEAKER) 4.5 K/ L 3.5-10.5 (test code = 775) RED BLOOD CELL COUNT (BEAKER) 3.29 M/ L 3.93-5.22 L (test code = 761) HEMOGLOBIN (BEAKER) (test code = 8.9 GM/DL 11.2-15.7 L 410) HEMATOCRIT (BEAKER) (test code = 30.8 % 34.1-44.9 L 411) MEAN CORPUSCULAR VOLUME (BEAKER) 93.6 fL 79.4-94.8 (test code = 753) MEAN CORPUSCULAR HEMOGLOBIN 27.1 pg 25.6-32.2 (BEAKER) (test code = 751) MEAN CORPUSCULAR HEMOGLOBIN CONC 28.9 GM/DL 32.2-35.5 L (BEAKER) (test code = 752) RED CELL DISTRIBUTION WIDTH 17.0 % 11.7-14.4 H (BEAKER) (test code = 412) PLATELET COUNT (BEAKER) (test 389 K/CU MM 150-450 code = 756) MEAN PLATELET VOLUME (BEAKER) 10.4 fL 9.4-12.3 (test code = 754) NUCLEATED RED BLOOD CELLS 0 /100 WBC 0-0 (BEAKER) (test code = 413) [id number] 20:44:00 Test Item Value Reference Range Interpretation Comments PARTIAL THROMBOPLASTIN TIME 66.6 seconds 22.5-36.0 H (BEAKER) (test code = 760) CBC (HEMOGRAM ONLY)2020-08-14 19:14:00 Test Item Value Reference Range Interpretation Comments WHITE BLOOD CELL COUNT (BEAKER) 4.3 K/ L 3.5-10.5 (test code = 775) RED BLOOD CELL COUNT (BEAKER) 3.32 M/ L 3.93-5.22 L (test code = 761) HEMOGLOBIN (BEAKER) (test code = 8.9 GM/DL 11.2-15.7 L 410) HEMATOCRIT (BEAKER) (test code = 30.4 % 34.1-44.9 L 411) MEAN CORPUSCULAR VOLUME (BEAKER) 91.6 fL 79.4-94.8 (test code = 753) MEAN CORPUSCULAR HEMOGLOBIN 26.8 pg 25.6-32.2 (BEAKER) (test code = 751) MEAN CORPUSCULAR HEMOGLOBIN CONC 29.3 GM/DL 32.2-35.5 L (BEAKER) (test code = 752) RED CELL DISTRIBUTION WIDTH 17.0 % 11.7-14.4 H (BEAKER) (test code = 412) PLATELET COUNT (BEAKER) (test 384 K/CU MM 150-450 code = 756) MEAN PLATELET VOLUME (BEAKER) 10.6 fL 9.4-12.3 (test code = 754) NUCLEATED RED BLOOD CELLS 0 /100 WBC 0-0 (BEAKER) (test code = 413) [id number] 19:10:00 Test Item Value Reference Range Interpretation Comments PARTIAL THROMBOPLASTIN TIME 135.1 seconds 22.5-36.0 H (BEAKER) (test code = 760) [id number] 11:18:00 Test Item Value Reference Range Interpretation Comments PARTIAL THROMBOPLASTIN TIME 101.6 seconds 22.5-36.0 H (DEDRA) (test code = 760) [id number] 09:37:00 Test Item Value Reference Range Interpretation Comments PARTIAL THROMBOPLASTIN TIME > seconds 22.5-36.0 HH (DEDRA) (test code = 760) CT, SPINE, LUMBAR, [id number] 08:35:00Unlisted Reason for Exam - Click Yes and Enter Reason Below->YesUnlisted Reason for Exam->LLE pain evalaute for radiculopathyLOS ANGELES [facility]Name[facility] : 1960 Sex: FFINAL REPORT CT, SPINE, LUMBAR, CONTRAST INDICATION: Unlisted Reason for ExamLLE pain evalaute for radiculopathy COMPARISON: None TECHNIQUE: Contiguous contrast-enhanced axial images of the lumbar spine are obtained. Computer reformatted coronal and sagittal images are also provided. Axial images are available in both bone and soft tissue algorithm. DOSE REDUCTION: Dose modu lation, iterative reconstruction, and/or weight-based adjustment of the mA/kV was utilized to reducethe radiation dose to as low as reasonably achievable. FINDINGS: 5 nonrib-bearing lumbar-type vertebral bodies are present. Alignment of the lumbar spine is within normal limits. Vertebral body height is maintained. Multilevel disc space height loss is present, most conspicuous at L4-V0Nqhgasrzizr images of the spinal canal demonstrate no acute findings.No acute findings in the paraspinal soft tissues. Evaluation of the individual levels demonstrates:L1/L2: Mild disc bulge, asymmetric to the left. No significant canal or foraminal stenosis.L2/L3: Mild disc bulge. No significant canal or foraminal stenosis.L3/L4: Mild disc bulge, asymmetric to the left with left foraminal component. Mild bilateralfacet arthropathy. Moderate left subarticular and foraminal stenosis with impingement of the left L4and L3 nerve roots respectively. No significant spinal canal narrowing.L4/L5: Broad-based disc bulgewith superimposed left paracentral disc osteophyte. Bilateral facet arthropathy and hypertrophy. Moderate bilateral subarticular recess stenosis with suspected impingement of the L5 nerve roots. Mild left foraminal stenosis. No significant spinal canal narrowing.L5/S1: Broad-based disc bulge with super imposed central disc extrusion and cranial migration of disc material. Moderate left subarticular recess stenosis with impingement of the left S1 nerve root. Moderate left foraminal stenosis with impingement of the exiting left L5 nerve root. Mild right foraminal stenosis. No significant spinal canal narrowing. IMPRESSION: Multilevel degenerative changes of the lumbar spine, most prominent at L3-L4,L4-L5 and L5-S1 described above. Signed: Adelaide Moore MDReport Verified Date/Time: 08/14/2020 08:35:08 Reading Location: [address] Neuro Reading Room CT spine lumbar with IV [id number] 08:35:00Interface, External Ris In - 08/14/2020 8:[address], SPINE, LUMBAR, CONTRAST INDICATION: Unlisted Reason for ExamLLE pain evalaute for radiculopathy COMPARISON: None TECHNIQUE: Contiguous contrast-enhanced axial images of the lumbar spine are obtained. Computer reformatted coronal and sagittal images are also provided. Axial images are available in both bone and soft tissue algorithm. DOSE REDUCTION: Dose modulation, iterative reconstruction, and/or weight-based adjustment of the mA/kV was utilized to reduce the radiation dose to as low as reasonably achievable. FINDINGS: 5 nonrib-bearing lumbar-type vertebral bodies are present. Alignment of the lumbar spineis within normal limits. Vertebral body height is maintained. Multilevel disc space height loss is present, most conspicuous at L4-Q8Vrqjdwfrjip images of the spinal canal demonstrate no acute findings.No acute findings in the paraspinal soft tissues. Evaluation of the individual levels demonstrates:L 1/L2: Mild disc bulge, asymmetric to the left. No significant canal or foraminal stenosis.L2/L3: Mild disc bulge. No significant canal or foraminal stenosis.L3/L4: Mild disc bulge, asymmetric to the left with left foraminal component. Mild bilateral facet arthropathy. Moderate left subarticular and for aminal stenosis with impingement of the left L4 and L3 nerve roots respectively. No significant spinal canal narrowing.L4/L5: Broad-based disc bulge with superimposed left paracentral disc osteophyte. Bilateral facet arthropathy and hypertrophy. Moderate bilateral subarticular recess stenosis with suspected impingement of the L5 nerve roots. Mild left foraminal stenosis. No significant spinal canal narrowing.L5/S1: Broad-based disc bulge with superimposed central disc extrusion and cranial migrationof disc material. Moderate left subarticular recess stenosis with impingement of the left S1 nerve root. Moderate left foraminal stenosis with impingement of the exiting left L5 nerve root. Mild right foraminal stenosis. No significant spinal canal narrowing. IMPRESSION: Multilevel degenerative changes of the lumbar spine, most prominent at L3-L4, L4-L5 and L5-S1 described above. Signed: Adelaide Moore MDReport Verified Date/Time: 08/14/2020 08:35:08 Reading Location: [facility] C0[facility] Neuro Reading Ro om [facility]/[id number] 06:56:00 Test Item Value Reference Range Interpretation Comments PROTIME (BEAKER) (test code = 17.5 seconds 11.9-14.2 H 759) INR (BEAKER) (test code = 370) 1.48 <=5.90 Effective 12/31/2018: PT Reference Range ChangeNew: 11.9-14.2 Previous: 11.7- 14.7RECOMMENDED COUMADIN/WARFARIN INR THERAPY RANGESSTANDARD DOSE: 2.0-3.0 Includes: PROPHYLAXIS for venous thrombosis, systemic embolization; TREATMENT for venous thrombosis and/or pulmonary embolus.HIGH RISK: Target INR is2.5-3.5 for patients wiht mechanical heart valves.While on warfarin.CBC (HEMOGRAM ONLY) 2020-08-14 06:43:00 Test Item Value Reference Range Interpretation Comments WHITE BLOOD CELL COUNT (BEAKER) 4.7 K/ L 3.5-10.5 (test code = 775) RED BLOOD CELL COUNT (BEAKER) 3.25 M/ L 3.93-5.22 L (test code = 761) HEMOGLOBIN (BEAKER) (test code = 8.9 GM/DL 11.2-15.7 L 410) HEMATOCRIT (BEAKER) (test code = 29.5 % 34.1-44.9 L 411) MEAN CORPUSCULAR VOLUME (BEAKER) 90.8 fL 79.4-94.8 (test code = 753) MEAN CORPUSCULAR HEMOGLOBIN 27.4 pg 25.6-32.2 (BEAKER) (test code = 751) MEAN CORPUSCULAR HEMOGLOBIN CONC 30.2 GM/DL 32.2-35.5 L (BEAKER) (test code = 752) RED CELL DISTRIBUTION WIDTH 17.1 % 11.7-14.4 H (BEAKER) (test code = 412) PLATELET COUNT (BEAKER) (test 379 K/CU MM 150-450 code = 756) MEAN PLATELET VOLUME (BEAKER) 10.4 fL 9.4-12.3 (test code = 754) NUCLEATED RED BLOOD CELLS 0 /100 WBC 0-0 (BEAKER) (test code = 413) [id number] 23:23:00 Test Item Value Reference Range Interpretation Comments PARTIAL THROMBOPLASTIN TIME 48.5 seconds 22.5-36.0 H (BEAKER) (test code = 760) BASIC METABOLIC [id number] 23:04:00 Test Item Value Reference Range Interpretation Comments SODIUM (BEAKER) 136 meq/L 136-145 (test code = 381) POTASSIUM (BEAKER) 4.7 meq/L 3.5-5.1 Specimen slightly (test code = 379) hemolyzed CHLORIDE (BEAKER) 103 meq/L 98-107 (test code = 382) CO2 (BEAKER) (test 25 meq/L 22-29 code = 355) BLOOD UREA NITROGEN 17 mg/dL 7-21 (BEAKER) (test code = 354) CREATININE (BEAKER) 0.82 mg/dL 0.57-1.25 Specimen slightly (test code = 358) hemolyzed GLUCOSE RANDOM 104 mg/dL 70-105 (BEAKER) (test code = 652) CALCIUM (BEAKER) 8.8 mg/dL 8.4-10.2 (test code = 697) EGFR (BEAKER) (test 71 mL/min/1.73 ESTIMA DENNY GFR IS code = 1092) sq m NOT ACCURATE CREATININE CLEARANCE IN PREDICTING GLOMERULAR FILTRATION RATE . ESTIMATED GFR I S NOT APPLICABLE FOR DIALYSIS PATIEN TS. Lighting Fixtures Decorator ID - [id number]-Glucose [id number] 18:16:00 Test Item Value Reference Range Interpretation Comments POC-Glucose Meter (test 90 mg/dL 70-110 : TE STED AT [facility] code = 1538) 67[address] [facility], 770 30: Lighting Fixtures Decorator/Techni sandee ID = [id number] for VANEGAS, GERI [place] Lab Interpretation (test Normal code = 77032-5) [facility] [id number] 18:16:00 Test Item Value Reference Range Interpretation Comments POC-GLUCOSE METER 90 mg/dL 70-110 : TESTED A T [facility] 6720 (BEAKER) (test code = [facility], 1538) [address]: Lighting Fixtures Decorator/Techni sandee ID = [id number] for ARGU ETA, RAJENDRA POCT-GLUCOSE [id number] 12:53:00 Test Item Value Reference Range Interpretation Comments POC-GLUCOSE METER 129 mg/dL 70-110 H : TESTED A T [facility] 6720 (BEAKER) (test code = [facility], 1538) [address]: Lighting Fixtures Decorator/Techni sandee ID = [id number] for AR VICTORINAETA, RAJENDRA [id number] 12:31:00 Test Item Value Reference Range Interpretation Comments PARTIAL THROMBOPLASTIN TIME 59.7 seconds 22.5-36.0 H (BEAKER) (test code = 760) POCT-GLUCOSE [id number] 08:55:00 Test Item Value Reference Range Interpretation Comments POC-GLUCOSE METER 125 mg/dL 70-110 H : TESTED A T [facility] 6720 (BEAKER) (test code = [facility], 1538) [address]: Lighting Fixtures Decorator/Techni sandee ID = [id number] for RAJENDRA SPENCER [id number] 06:51:00 Test Item Value Reference Range Interpretation Comments PARTIAL THROMBOPLASTIN TIME 81.5 seconds 22.5-36.0 H (BEAKER) (test code = 760) While on warfarin.PROTHROMBIN [id number] 06:49:00 Test Item Value Reference Range Interpretation Comments PROTIME (BEAKER) (test code = 14.1 seconds 11.9-14.2 759) INR (BEAKER) (test code = 370) 1.13 <=5.90 Effective 12/31/2018: PT Reference Range ChangeNew: 11.9-14.2 Previous: 11.7- 14.7RECOMMENDED COUMADIN/WARFARIN INR THERAPY RANGESSTANDARD DOSE: 2.0-3.0 Includes: PROPHYLAXIS for venous thrombosis, systemic embolization; TREATMENT for venous thrombosis and/or pulmonary embolus.HIGH RISK: Target INR is2.5-3.5 for patients wiht mechanical heart valves.While on warfarin.CBC (HEMOGRAM ONLY) 2020-08-13 06:34:00 Test Item Value Reference Range Interpretation Comments WHITE BLOOD CELL COUNT (BEAKER) 4.4 K/ L 3.5-10.5 (test code = 775) RED BLOOD CELL COUNT (BEAKER) 3.58 M/ L 3.93-5.22 L (test code = 761) HEMOGLOBIN (BEAKER) (test code = 9.7 GM/DL 11.2-15.7 L 410) HEMATOCRIT (BEAKER) (test code = 32.7 % 34.1-44.9 L 411) MEAN CORPUSCULAR VOLUME (BEAKER) 91.3 fL 79.4-94.8 (test code = 753) MEAN CORPUSCULAR HEMOGLOBIN 27.1 pg 25.6-32.2 (BEAKER) (test code = 751) MEAN CORPUSCULAR HEMOGLOBIN CONC 29.7 GM/DL 32.2-35.5 L (BEAKER) (test code = 752) RED CELL DISTRIBUTION WIDTH 17.6 % 11.7-14.4 H (BEAKER) (test code = 412) PLATELET COUNT (BEAKER) (test 414 K/CU MM 150-450 code = 756) MEAN PLATELET VOLUME (BEAKER) 10.6 fL 9.4-12.3 (test code = 754) NUCLEATED RED BLOOD CELLS 0 /100 WBC 0-0 (BEAKER) (test code = 413) POCT-GLUCOSE [id number] 21:47:00 Test Item Value Reference Range Interpretation Comments POC-GLUCOSE METER 106 mg/dL 70-110 : TESTED A T [facility] 6720 (BEAKER) (test code = [facility] [place], 1538) [address]: Lighting Fixtures Decorator/Techni sandee ID = [id number] for Shayy Schumacher [id number] 21:23:00 Test Item Value Reference Range Interpretation Comments PARTIAL THROMBOPLASTIN TIME 39.9 seconds 22.5-36.0 H (BEAKER) (test code = 760) [id number] 09:33:00 Test Item Value Reference Range Interpretation Comments PARTIAL THROMBOPLASTIN TIME 68.3 seconds 22.5-36.0 H (BEAKER) (test code = 760) PROTHROMBIN [id number] 06:46:00 Test Item Value Reference Range Interpretation Comments PROTIME (BEAKER) (test code = 13.0 seconds 11.9-14.2 759) INR (BEAKER) (test code = 370) 1.02 <=5.90 Effective 12/31/2018: PT Reference Range ChangeNew: 11.9-14.2 Previous: 11.7- 14.7RECOMMENDED COUMADIN/WARFARIN INR THERAPY RANGESSTANDARD DOSE: 2.0-3.0 Includes: PROPHYLAXIS for venous thrombosis, systemic embolization; TREATMENT for venous thrombosis and/or pulmonary embolus.HIGH RISK: Target INR is2.5-3.5 for patients wiht mechanical heart valves.While on warfarin.CBC (HEMOGRAM ONLY) 2020-08-12 06:24:00 Test Item Value Reference Range Interpretation Comments WHITE BLOOD CELL COUNT (BEAKER) 5.0 K/ L 3.5-10.5 (test code = 775) RED BLOOD CELL COUNT (BEAKER) 3.22 M/ L 3.93-5.22 L (test code = 761) HEMOGLOBIN (BEAKER) (test code = 8.8 GM/DL 11.2-15.7 L 410) HEMATOCRIT (BEAKER) (test code = 29.7 % 34.1-44.9 L 411) MEAN CORPUSCULAR VOLUME (BEAKER) 92.2 fL 79.4-94.8 (test code = 753) MEAN CORPUSCULAR HEMOGLOBIN 27.3 pg 25.6-32.2 (BEAKER) (test code = 751) MEAN CORPUSCULAR HEMOGLOBIN CONC 29.6 GM/DL 32.2-35.5 L (BEAKER) (test code = 752) RED CELL DISTRIBUTION WIDTH 18.0 % 11.7-14.4 H (BEAKER) (test code = 412) PLATELET COUNT (BEAKER) (test 398 K/CU MM 150-450 code = 756) MEAN PLATELET VOLUME (BEAKER) 10.4 fL 9.4-12.3 (test code = 754) NUCLEATED RED BLOOD CELLS 0 /100 WBC 0-0 (BEAKER) (test code = 413) [id number] 00:29:00 Test Item Value Reference Range Interpretation Comments PARTIAL THROMBOPLASTIN TIME 33.0 seconds 22.5-36.0 (BEAKER) (test code = 760) CBC (HEMOGRAM ONLY)2020-08-12 00:10:00 Test Item Value Reference Range Interpretation Comments WHITE BLOOD CELL COUNT (BEAKER) 4.7 K/ L 3.5-10.5 (test code = 775) RED BLOOD CELL COUNT (BEAKER) 3.74 M/ L 3.93-5.22 L (test code = 761) HEMOGLOBIN (BEAKER) (test code = 10.4 GM/DL 11.2-15.7 L 410) HEMATOCRIT (BEAKER) (test code = 34.2 % 34.1-44.9 411) MEAN CORPUSCULAR VOLUME (BEAKER) 91.4 fL 79.4-94.8 (test code = 753) MEAN CORPUSCULAR HEMOGLOBIN 27.8 pg 25.6-32.2 (BEAKER) (test code = 751) MEAN CORPUSCULAR HEMOGLOBIN CONC 30.4 GM/DL 32.2-35.5 L (BEAKER) (test code = 752) RED CELL DISTRIBUTION WIDTH 18.0 % 11.7-14.4 H (BEAKER) (test code = 412) PLATELET COUNT (BEAKER) (test 460 K/CU MM 150-450 H code = 756) MEAN PLATELET VOLUME (BEAKER) 10.5 fL 9.4-12.3 (test code = 754) NUCLEATED RED BLOOD CELLS 0 /100 WBC 0-0 (BEAKER) (test code = 413) [id number] 16:03:00 Test Item Value Reference Range Interpretation Comments PARTIAL THROMBOPLASTIN TIME 33.6 seconds 22.5-36.0 (BEAKER) (test code = 760) Prior to initiating heparinPlatelet [id number] 15:55:00 Test Item Value Reference Range Interpretation Comments Platelets (test code = 518 See_Comment H [Aut omated message] 777-3) The system [employer] generated this result transmitted ref erence range: 150 - 45 0 K/CU MM. The referen ce range was not u sed to interpret this result as normal/abnor mal. Lab Interpretation (test Abnormal code = 00788-4) [facility] (HEMOGRAM ONLY)2020-08-11 15:55:00 Test Item Value Reference Range Interpretation Comments WHITE BLOOD CELL COUNT (BEAKER) 6.4 K/ L 3.5-10.5 (test code = 775) RED BLOOD CELL COUNT (BEAKER) 3.54 M/ L 3.93-5.22 L (test code = 761) HEMOGLOBIN (BEAKER) (test code = 9.9 GM/DL 11.2-15.7 L 410) HEMATOCRIT (BEAKER) (test code = 32.5 % 34.1-44.9 L 411) MEAN CORPUSCULAR VOLUME (BEAKER) 91.8 fL 79.4-94.8 (test code = 753) MEAN CORPUSCULAR HEMOGLOBIN 28.0 pg 25.6-32.2 (BEAKER) (test code = 751) MEAN CORPUSCULAR HEMOGLOBIN CONC 30.5 GM/DL 32.2-35.5 L (BEAKER) (test code = 752) RED CELL DISTRIBUTION WIDTH 18.1 % 11.7-14.4 H (BEAKER) (test code = 412) PLATELET COUNT (BEAKER) (test 518 K/CU MM 150-450 H code = 756) MEAN PLATELET VOLUME (BEAKER) 10.2 fL 9.4-12.3 (test code = 754) NUCLEATED RED BLOOD CELLS 0 /100 WBC 0-0 (BEAKER) (test code = 413) PLATELET [id number] 15:55:00 Test Item Value Reference Range Interpretation Comments PLATELET COUNT (BEAKER) (test 518 K/CU MM 150-450 H code = 756) Hemoglobin and [id number] 09:12:00 Test Item Value Reference Range Interpretation Comments Hemoglobin (test code 9.6 See_Comment L [Auto mated = 786-4) message] The system which generated this result transmit denny reference range : 11.2 - 15.7 GM/ DL. The reference range was not u sed to interpret th is result as normal/abnormal . Hematocrit (test code 31.3 % 34.1-44.9 L = 4544-3) [place] (test code = [place]) Lighting Fixtures Decorator ID - [id number] Lab Interpretation Abnormal (test code = 23033-3) [facility]HE[facility] AND [id number] 09:12:00 Test Item Value Reference Range Interpretation Comments HEMOGLOBIN (BEAKER) (test code = 9.6 GM/DL 11.2-15.7 L 410) HEMATOCRIT (BEAKER) (test code = 31.3 % 34.1-44.9 L 411) Lighting Fixtures Decorator ID - [id number]-GLUCOSE [id number] 06:52:00 Test Item Value Reference Range Interpretation Comments POC-GLUCOSE METER 94 mg/dL 70-110 : TESTED A T [facility] 6720 (BEAKER) (test code = CATHERINE Ricci [facility], 1538) [address]: Lighting Fixtures Decorator/Techni sandee ID = [id number] for REBEKAH HIRSCHJOHN PROTHROMBIN TIME/[id number] 04:49:00 Test Item Value Reference Range Interpretation Comments PROTIME (BEAKER) (test code = 13.5 seconds 11.9-14.2 759) INR (BEAKER) (test code = 370) 1.06 <=5.90 Effective 12/31/2018: PT Reference Range ChangeNew: 11.9-14.2 Previous: 11.7- 14.7RECOMMENDED COUMADIN/WARFARIN INR THERAPY RANGESSTANDARD DOSE: 2.0-3.0 Includes: PROPHYLAXIS for venous thrombosis, systemic embolization; TREATMENT for venous thrombosis and/or pulmonary embolus.HIGH RISK: Target INR is2.5-3.5 for patients wiht mechanical heart valves.While on warfarin.Prepare Leuko-Red [id number] 23:54:00 Test Item Value Reference Range Interpretation Comments CROSSMATCH (test code = 2264) COMPATIBLE Unit ABO (test code = A Pos 6168558) UNIT NUMBER (test code = [id number] 934-0) Status (test code = 7551593) TX_TIMEINCHART Blood Bank Product (test code RED BLOOD CELLS = 2263) PRODUCT CODE (test code = S1492L82 933-2) [facility], [id number] 20:26:00 Test Item Value Reference Range Interpretation Comments Occult blood (test code = 2335-8) Positive Negative A Lab Interpretation (test code = Abnormal 69703-2) [facility], [id number] 20:26:00 Test Item Value Reference Range Interpretation Comments FECAL OCCULT BLOOD (BEAKER) (test Positive Negative A code = 618) POCT-GLUCOSE [id number] 18:07:00 Test Item Value Reference Range Interpretation Comments POC-GLUCOSE METER 98 mg/dL 70-110 : TESTED A T [facility] 6720 (BEAKER) (test code = [facility], 1538) [address]: Lighting Fixtures Decorator/Techni sandee ID = [id number] for MARK CARO POCT-GLUCOSE [id number] 12:56:00 Test Item Value Reference Range Interpretation Comments POC-GLUCOSE METER 112 mg/dL 70-110 H : TESTED A T [facility] 6720 (BEAKER) (test code = [facility], 1538) [address]: Lighting Fixtures Decorator/Techni sandee ID = [id number] for MARK DEY JULIO's with PT and DP doppler [id number] 12:53:58Ejection FractionSLE ECHO HEARTLAB MKCKESSON CPACSRight Impression1. The posterior tibial and dorsal is pedis arteries are patent with biphasicDoppler waveforms.2. The PT pressure is 112 mmHg with an JULIO of 0.89 and the DP pressure is142 mmHg with an JULIO of 1.13, within mild obstruction (PT) and normal (DP)ranges.3. The great toe pressure is 87 mmHg with a abnormal TBI of 0.69.4. The first and fifth digits have adequate flow by PPG waveforms.5. The second, third and fourth digits have diminished flow by PPGwaveforms.Left Impression1. The posterior tibial and dorsalis pedis arteries are patent with biphasicDoppler waveforms.2. The PT pressure is 120 mmHg with an JULIO of 0.95 and the DP pressure is105 mmHg with an JULIO of 0.83, within normal (PT) and mild (DP) obstructionranges.3. 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 Conclusions Summary Arterial pressures and Doppler waveforms were performed bilaterally. Adequate Doppler waveforms were obtained. Doppler waveforms were biphasic bilaterally. The right and left JULIO's were within normal and mild obstruction ranges. On the right, the toe pressure and TBIs were within abnormal range. On the right, the first and fifth digits had adequate flow while the second, third and fourth digits had diminished flow by PPG waveforms. The left toe pressure and TBIs were not obtained due to amputation of all the digits. Signature Velocities are measured in cm/s ; Diameters are measured in cm Interface, External Ris In - 08/10/2020 12:54 PM CSTPV LAB - Lower Extremity Arterial Procedure Demographics Patient Name PRISCILLA WATTS Date of Study 08/10/2020 Age 60 Visit Number [id number] Gender Female Accession Number [id number] Date of 1960 Referring [facility] Room Number 1460 Physician MD Carito Pet Stylist Gilda Bond RVT Interpreting Physician PENNY Dan ProcedureTypeof Study: Extremities Arteries: Lower Extremity Arterial Procedure, ARTERIAL (JULIO'S W/DOPPLER) ONLY. Indications for Study:Lower extremity pain.Patient Status:Routine.Study Location:Vascular Lab.Technical Quality:Adequate visualization.Risk FactorsHistory of Disease+ -----+----+ +!Diagnosis !Date!Comments !+ +----+ +!Hi story/Risk Factors: ! !current smoker !+ ------+----+ +ImpressionsRight Impression1. The posterior tibial and dorsalis pedis arteries are patent with biphasicDoppler waveforms.2. The PT pressure is 112 mmHg with an JULIO of 0.89 and the DP pressure is142 mmHg with an JULIO of 1.13, within mild obstruction (PT) and normal (DP)ranges.3. The great toe pressure is 87 mmHg with a abnormal TBI of 0.69.4. The first and fifthdigits have adequate flow by PPG waveforms.5. The second, third and fourth digits have diminished flow by PPGwaveforms.Left Impression1. The posterior tibial and dorsalis pedis arteries are patent withbiphasicDoppler waveforms.2. The PT pressure is 120 mmHg with an JULIO of 0.95 and the DP pressure is105 mmHg with an JULIO of 0.83, within normal (PT) and mild (DP) obstructionranges.3. 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 Conclusions Summary Arterial pressures and Doppler waveforms were performed bilaterally. Adequate Doppler waveforms were obtained. Doppler waveforms were biphasic bilaterally. The right and left JULIO's were within normal and mild obstruction ranges. On the right, the toe pressure and TBIs were within abnormal range. On the right, the first and fifth digits had adequate flow while the second, third and fourth digits had diminished flow by PPG waveforms. The left toe pressure and TBIs were not obtained due to amputation of all the digits. Signature Velocities are measured in cm/s ; Diameters are measured in [facility] POCT-GLUCOSE [id number] 09:51:00 Test Item Value Reference Range Interpretation Comments POC-GLUCOSE METER 97 mg/dL 70-110 : TESTED A T [facility] 6720 (BEAKER) (test code = DANIELACARTER Ricci [facility], 1538) [address]: Lighting Fixtures Decorator/Techni sandee ID = [id number] for MARK CARO BASIC METABOLIC [id number] 08:57:00 Test Item Value Reference Range Interpretation Comments SODIUM (BEAKER) 139 meq/L 136-145 (test code = 381) POTASSIUM (BEAKER) 3.3 meq/L 3.5-5.1 L (test code = 379) CHLORIDE (BEAKER) 106 meq/L 98-107 (test code = 382) CO2 (BEAKER) (test 24 meq/L 22-29 code = 355) BLOOD UREA NITROGEN 10 mg/dL 7-21 (BEAKER) (test code = 354) CREATININE (BEAKER) 0.70 mg/dL 0.57-1.25 (test code = 358) GLUCOSE RANDOM 83 mg/dL 70-105 (BEAKER) (test code = 652) CALCIUM (BEAKER) 8.1 mg/dL 8.4-10.2 L (test code = 697) EGFR (BEAKER) (test 85 mL/min/1.73 ESTIMA DENNY GFR IS code = 1092) sq m NOT ACCURATE CREATININE CLEARANCE IN PREDICTING GLOMERULAR FILTRATION RATE . ESTIMATED GFR I S NOT APPLICABLE FOR DIALYSIS PATIEN TS. Lighting Fixtures Decorator ID - ADMINPROTHROMBIN TIME/[id number] 08:55:00 Test Item Value Reference Range Interpretation Comments PROTIME (BEAKER) (test code = 12.9 seconds 11.9-14.2 759) INR (BEAKER) (test code = 370) 1.00 <=5.90 Effective 12/31/2018: PT Reference Range ChangeNew: 11.9-14.2 Previous: 11.7- 14.7RECOMMENDED COUMADIN/WARFARIN INR THERAPY RANGESSTANDARD DOSE: 2.0-3.0 Includes: PROPHYLAXIS for venous thrombosis, systemic embolization; TREATMENT for venous thrombosis and/or pulmonary embolus.HIGH RISK: Target INR is2.5-3.5 for patients wiht mechanical heart valves.CBC W/PLT COUNT & AUTO [id number] 08:45:00 Test Item Value Reference Range Interpretation Comments WHITE BLOOD CELL COUNT (BEAKER) 5.0 K/ L 3.5-10.5 (test code = 775) RED BLOOD CELL COUNT (BEAKER) 3.30 M/ L 3.93-5.22 L (test code = 761) HEMOGLOBIN (BEAKER) (test code = 9.3 GM/DL 11.2-15.7 L 410) HEMATOCRIT (BEAKER) (test code = 29.7 % 34.1-44.9 L 411) MEAN CORPUSCULAR VOLUME (BEAKER) 90.0 fL 79.4-94.8 (test code = 753) MEAN CORPUSCULAR HEMOGLOBIN 28.2 pg 25.6-32.2 (BEAKER) (test code = 751) MEAN CORPUSCULAR HEMOGLOBIN CONC 31.3 GM/DL 32.2-35.5 L (BEAKER) (test code = 752) RED CELL DISTRIBUTION WIDTH 18.7 % 11.7-14.4 H (BEAKER) (test code = 412) PLATELET COUNT (BEAKER) (test 372 K/CU MM 150-450 code = 756) MEAN PLATELET VOLUME (BEAKER) 10.1 fL 9.4-12.3 (test code = 754) NUCLEATED RED BLOOD CELLS 0 /100 WBC 0-0 (BEAKER) (test code = 413) NEUTROPHILS RELATIVE PERCENT 78 % (BEAKER) (test code = 429) LYMPHOCYTES RELATIVE PERCENT 16 % (BEAKER) (test code = 430) MONOCYTES RELATIVE PERCENT 6 % (BEAKER) (test code = 431) EOSINOPHILS RELATIVE PERCENT 0 % (BEAKER) (test code = 432) BASOPHILS RELATIVE PERCENT 0 % (BEAKER) (test code = 437) NEUTROPHILS ABSOLUTE COUNT 3.90 K/ L 1.56-6.13 (BEAKER) (test code = 670) LYMPHOCYTES ABSOLUTE COUNT 0.80 K/ L 1.18-3.74 L (BEAKER) (test code = 414) MONOCYTES ABSOLUTE COUNT (BEAKER) 0.29 K/ L 0.24-0.36 (test code = 415) EOSINOPHILS ABSOLUTE COUNT 0.00 K/ L 0.04-0.36 L (BEAKER) (test code = 416) BASOPHILS ABSOLUTE COUNT (BEAKER) 0.00 K/ L 0.01-0.08 L (test code = 417) IMMATURE GRANULOCYTES-RELATIVE 0 % 0-1 PERCENT (BEAKER) (test code = 2801) POCT-GLUCOSE [id number] 07:00:00 Test Item Value Reference Range Interpretation Comments POC-GLUCOSE METER 82 mg/dL 70-110 : TESTED A T [facility] 6720 (BEAKER) (test code = CATHERINE HELLER ND, 1538) [address]: Lighting Fixtures Decorator/Techni sandee ID = [id number] for MUSE SOHEILA LÓPEZ 2D Echo W/Doppler(CW/PW/Color)2020-08-09 16:09:50Ejection FractionSLEH ECHO HEARTLAB MKCKESSON CPACSInterface, External Ris In - 08/09/2020 4:09 PM C STTransthoracic Echocardiography Report (TTE) Demographics Patient Name PRISCILLA WATTS Date of Study 08/09/2020 Gender Female Visit Number [id number] Race Room Number ED23 Number Date of 1960 Referring Physician SOHEILA INFANTE Age 60 year(s) Pet Stylist Lisa Perkins, [facility] Interpreting Soni Atkinson MD Physician Procedure Type of Study TTE procedure:2DECHO W DOPPLER(CW/PW/COLOR) (Routine) Indications:Acute Chest Pain/ Suspected CAD.Clinical HistoryHypothyroidism, Seizures, L Cath(01/15/19), Smoker, s/p Mechanical Aortic +Mitral ValveHGB 5.0HCT 17.5 %Height: 66 inches Weight: 66.68 kg (147 lbs) BSA: 1.75 m^2 BMI: 23.73 kg/m^2HR: 99 bpm BP: 118/57 mmHg Summary Global LV systolic function normal . No evidence of LV hypertrophy. Degree of diastolic dysfunction (LAP assessment) is inconclusive due to prosthetic MV . LA size is enlarged . LA isincompletely visualized, size based on qualitative assessment. A mechanical AoV prosthesis is partially visualized . Prosthetic AoV systolic gradients are moderate to severely increased due in part to severe anemia. AoV dimensionless obstructive index (DOI)) is 0.23 .Peak Grad; 63 ,Mean Grad; 29 mmHg . Acceleration time is 79 msec. EOA: 0.99 cm2, Indexed EOA: 0.56 cm2/m2 Prosthetic AoV regurgitaton is trivial . A mechanical MV prosthesis is partially visualized with severely increased gradients due in part to severe anemia and increased HR. Mean MV gradient 15 mmHg at HR of 98 bpm. MV PHT 96 msec. MV VTI/LVOT VTI ratio 3.24 Unable to assess for presence of mitral regurgitation due to acoustic shadowing. Suggest EMMANUEL if clinically indicated. Unable to estimate peak systolic PA pressure; inadequate TR velocity signal. The estimated RA pressure by IVC dynamics 11-15mmHg . Previous Study In comparison with the prior exam 01/08/2019 the following changes are noted: increased prosthetic mitral and aortic gradients in setting of worsening anemia (Hb 5.0). Signature Findings Left Ventricle Global LV systolic function normal . LVEF by Hidalgo's method of disk assessment is normal (>60%) . No evidence of LV hypertrophy. The left ventricle is chamber size (by vol index) is small (female - LVED vol < 29 ml/m2). All of the LV segments contract normally . Degree of diastolic dysfunction (LAP assessment) is inconclusive due to prosthetic MV . Left Atrium LA size is enlarged. LA is incompletely visualized, size based on qualitative assessment. Right Ventricle The right ventricular chamber size and systolic function are within normal limits. Right Atrium RA size is normal. Aortic Valve A mechanical AoV prosthesis is partially visualized . Prosthetic AoV systolic gradients are moderate to severely increased due in part to severe anemia. AoV dimensionless obstructive index (DOI)) is 0.23 .Peak Grad; 63 ,Mean Grad; 29 mmHg . Acceleration t edelmira is 79 msec. EOA: 0.99 cm2, Indexed EOA: 0.56 cm2/m2 Prosthetic AoV regurgitaton is trivial . Mitral Valve A mechanical MV prosthesis is partially visualized with severely increased gradients which may be due in part, to severe anemia and increased HR . Mean MV gradient 15 mmHg at HR of 98 bpm. PHT 96 msec. MV VTI/LVOT VTI ratio 3.24 Tricuspid Valve TV is not well visualized. Unable to estimate peak systolic PA pressure; inadequate TR velocity signal. Pulmonic Valve PV is not well visualized. Aorta Proximal ascending aorta size is normal . Pericardium No significant pericardial effusion is visualized. IVC/SVC/PA/PV/Pleural The estimated RA pressure by IVC dynamics 11-15mmHg . Chambers/Structures Left Ventricle LVIDd: 4.12 cm LVEDV:75.06 ml LVIDs: 3.09 cm LVESV:29.41 ml LV Septum Diastolic: 0.95 cm LVEF 2D Cube: 57.9 % LV PW Diastolic: 0.89 cm LVEDV Hidalgo's:45.8 ml LV Length: 8.13 cm LVESV Hidalgo's:16.48 ml LV FS: 25 %LVEF Hidalgo's: 64 % LVEDVI: 26 ml/m^2 LVOT Diameter: 2.42 cm LVESVI: 9 ml/m^2 LVEF: 60.8 % Aorta Ascending Aorta: 3.16 cm Doppler/Quantitative Measurements Mitral Valve P1/2t: 95.6 msec Mean Velocity: 1.83 m/s Mean Gradient: 14.76 mmHg Area (continuity): 1.4 cm^2 MV Area (PHT): 2.3 cm^2 MV VTI: 48.6 cm MV Star. Peak: 2.45 m/s Aortic Valve Peak Velocity: 3.98 m/s MeanVelocity: 2.44 m/s Peak Gradient: 63.26 mmHg Mean Gradient: 29.43 mmHg AV Area (continuity): 1.12 cm^2 AV VTI: 60.7 cm Acceleration Time: 79.3 msec AV DVI: 0.24 LVOT Peak Velocity: 0.93 m/s Peak Gradient: 3.45 mmHg Mean Velocity: 0.55 m/s Mean Gradient: 1.55 mmHg LVOT Diameter: 2.42 cm LVOT VTI: 14.83 cm LVOT Area: 4.6 cm^2 LVOT SV:68.18 ml LVOT CO: 6.75 l/min LVOT CI: 3.86 l/min/m^2CSonoma [facility] [id number] 13:30:00 Test Item Value Reference Range Interpretation Comments Troponin I (test code = <0.01 0-0.03 38115-8) [place] (test code = AUGUSTA) Troponin I (TnI) levels must be interpreted [...] failure, acidosis, acute neurological disease, and persistent tachyarrhythmia.Opera carlos SAMUEL F Lab Interpretation (test Normal code = 10323-3) [facility] [id number] 13:30:00 Test Item Value Reference Range Interpretation Comments TROPONIN I (BEAKER) (test code = 397) < ng/mL 0.00-0.03 Troponin I (TnI) levels must [...] failure, acidosis, acute neurological disease, and persistent tachyarrhythmia.Lighting Fixtures Decorator ID - LIZZIE FPOCT-GLUCOSE [id number] 12:43:00 Test Item Value Reference Range Interpretation Comments POC-GLUCOSE METER 100 mg/dL 70-110 : TESTED A T [facility] 67[facility] (BEAKER) (test code = CATHERINE HELLER ND, 1538) 24702: Lighting Fixtures Decorator/Techni sandee ID = [id number] for Benito Contreras [id number] 07:10:00 Test Item Value Reference Range Interpretation Comments Ferritin (test code = 222.98 ng/mL 5-275 2276-4) [place] (test code = AUGUSTA) Lighting Fixtures Decorator ID - RISHI W Lab Interpretation (test Normal code = 80188-0) [facility] Test Item Value Reference Range Interpretation Comments FERRITIN (BEAKER) (test code = 222.98 ng/mL 5.00-275.00 361) Lighting Fixtures Decorator ID - RISHI [id number] 05:42:00 Test Item Value Reference Range Interpretation Comments Haptoglobin (test code = 91 mg/dL 14258 4542-7) [place] (test code = AUGUSTA) Lighting Fixtures Decorator ID Dannie RISHI W Lab Interpretation (test Normal code = 71723-6) [facility] 05:42:00 Test Item Value Reference Range Interpretation Comments HAPTOGLOBIN (BEAKER) (test code = 91 mg/dL 14-258 366) Lighting Fixtures Decorator ID Dannie BLACKWELL WSARS-CoV2/Influenza/RSV RT-PCR (Symptomatic ONLY)2020-08-09 05:13:00 Test Item Value Reference Range Interpretation Comments SARS-COV2/RT-PCR (test Negative Negative code = 27025-3) Influenza A RT-PCR Negative Negative (test code = 80405-0) Influenza B RT-PCR Negative Negative (test code = 57476-2) RSV by RT-PCR (test Negative Negative Performa nce of the code = 21811-1) Xpert Xpress SARS-CoV-2/Flu/ RSV test has only been established in nasopharyngeal swab specimens. Use of the Xpert Xpress SARS-CoV-2/Flu/ RSV test with other spec imen types has not b een assessed and performance characteristics are unknown. As wi th any molecular test, mutations withi n the targeted geneti c regions identif ied by the Xpert Xpres s SARS-CoV-2/Flu/ RSV test could affect pr kathrine and/or probe bi nding resulting in fa ilure to detect the pres ence of virus or the vi nimesh being detected less predictably.Neg ative results do not preclude SARS-CoV-2, Inf luenza A/B, or RSV inf ection and should not be used as the sole bas is for treatment or ot her patient managem ent decisions. Res ults from the Xpert Xpress SARS-CoV-2/Flu/ RSV test should be corre lated with the clinic al history, epidemiological data, and other data available to th e clinician evalu ating the patient. I nvalid test results ma y occur from improper s pecimen collection; tran lure to follow the moncho mmended sample collecti on, handling, and s torage procedures; neri hnical error. False ne gative results may occ ur if virus is presen t at levels below th e analytical limi t of detection (LOD: 131 copies/mL). Vi ral nucleic acid ma y persist in vivo , independent of virus viability. Dete ction of analyte target( s) does not imply that the corresponding v irus(es) are infectious or are the causative a gents for clinical sy mptoms. Recent patient exposure to FluMist or other live attenuated influenza vacci saeed may cause inaccurat e positive result s.This test has been authorized by Mamadou HERNANDEZ under an EUA for use by authorized laboratories. This test is only au thorized for the duratio n of the declaration michele t circumstances e xist justifying the authorization o f emergency use o f in vitro diagnosti c tests for detection a nd/or diagnosis of CO VID-19 under Section 5 64(b)(1) of the Federal Food, Drug and Cosmet ic Act, 21 U.S.C. 360bbb-3(b)(1), unless the authorizati on is terminated or r evoked sooner. Fact Sh eet for Healthcare Prov iders: https://www.CURRENT /Documents/Xper t%20Xpre ss%55KLGP-NxF-8 -Flu-RSV /302-4508%20Rev .%20B%20 HCP%20Fact%20Sh eet.pdf Fact Sheet for Healthcare Skylar ents: https://www.CURRENT /Documents/Xper t%20Xpre ss%47JMGD-FeS-0 -Flu-RSV /302-4507%20Rev .%20B%20 Patient%20Fact% 20Sheet. pdf Lab Interpretation Normal (test code = 46717-6) [facility] [id number] 05:13:00 Test Item Value Reference Range Interpretation Comments SARS-COV2/RT-PCR Negative Negative (test code = 9102918) INFLUENZA A RT-PCR Negative Negative (test code = 7174893) INFLUENZA B RT-PCR Negative Negative (test code = 9630748) RSV RT-PCR (test Negative Negative Performanc e of the Xpert code = 2491993) Xpress SARS- CoV-2/Flu/RSV test has only b een established in nasopharyngeal swab specimens. Use of the Xpert Xpress SARS-CoV-2/Flu/ RSV test with other spec imen types has not been as sessed and performance characteristics are unknown. As wi th any molecular test, mutations within the targ eted genetic regions identified by Xpert Xpress SARS-CoV -2/Flu/RSV test could affe ct primer and/or probe bi nding resulting in fa ilure to detect the pres ence of virus or the vi nimesh being detected less predictably.Neg ative results do not preclude SARS-CoV-2, Inf luenza A/B, or RSV inf ection and should not be u sed as the sole basis for treatment or other patien t management deci sions. Results from Xpert Xpress SARS-CoV -2/Flu/RSV test should be correlated with the clinic al history, epidem iological data, and other data available to th e clinician evalu ating the patient. Inval id test results may occ ur from improper specim en collection; tran lure to follow the moncho mmended sample collecti on, handling, and s torage procedures; neri hnical error. False ne gative results may occ ur if virus is presen t at levels below th e analytical limi t of detection (LOD: 131 copies/mL). Vi ral nucleic acid ma y persist in vivo, indepe ndent of virus viability . Detection of an alyte target(s) does not imply that the corres ponding virus(es) are i nfectious or are the caus ative agents for clin ical symptoms. Rece nt patient exposure to Flu Mist or other live atte nuated influenza vacci saeed may cause inaccurat e positive results.This te st has been authorized by FDA under an EUA fo r use by authorized labo ratories. This test is on ly authorized for the duration of the declaration michele t circumstances e xist justifying the authorization o f emergency use o f in vitro diagnostic test s for detection and/o r diagnosis of CO VID-19 under Section 5 64(b)(1) of the Federal Food, Drug and Cosmetic Ac t, 21 U.S.C. 360bbb -3(b)(1), unless the auth orization is terminated o r revoked sooner.Fact She et for Healthcare Prov iders: https://www.Apsalarid.com/D ocuments/Xpert% 20Xpress%2 8XMLZ-WmC-0-Flu -RSV/- 508%20Rev.%20B% 20HCP%20Fa ct%20Sheet.pdfF act Sheet for Healthcare Patients: https://www.Apsalarid.com/D ocuments/Xpert% 20Xpress%2 9LLEW-JhX-9-Flu -RSV/302- 507%20Rev.%20B% 20Patient% 20Fact%20Sheet. pdf Type and screen, automated ([facility] and [facility] only)2020-08-09 05:09:00 Test Item Value Reference Range Interpretation Comments ABO/RH AUTOMATED (BEAKER) (test A POSITIVE code = 2260) Ab Scrn (test code = 890-4) NEGATIVE [facility] [id number] 04:58:00 Test Item Value Reference Range Interpretation Comments TROPONIN I (BEAKER) (test code = 0.01 ng/mL 0.00-0.03 397) Troponin I (TnI) levels must be [...] failure, acidosis, acute neurological disease, and persistent tachyarrhythmia.Lighting Fixtures Decorator ID - RISHI Camacho, TIBC, % sat. (without ferritin)2020-08-09 04:55:00 Test Item Value Reference Range Interpretation Comments Iron (test code = 2498-4) 31.0 ug/dL 40-160 L TIBC (test code = 2500-7) 338 ug/dL 250-450 Iron % Saturation (test 9 % 20-55 L code = 2502-3) [place] (test code = AUGUSTA) Lighting Fixtures Decorator ID - RISHI W Lab Interpretation (test Abnormal code = 14018-4) [facility], % SAT. (WITHOUT FERRITIN)2020-08-09 04:55:00 Test Item Value Reference Range Interpretation Comments IRON (BEAKER) (test code = 547) 31.0 ug/dL 40.0-160.0 L TOTAL IRON BINDING CAPACITY 338 ug/dL 250-450 (BEAKER) (test code = 769) IRON % SATURATION (2) (BEAKER) 9 % 20-55 L (test code = 2590) Lighting Fixtures Decorator ID - RISHI WHepatic function [id number] 04:53:00 Test Item Value Reference Range Interpretation Comments Protein, Total (test 6.9 See_Comment [Autom ated code = 2885-2) message] The system which generated this result transmit denny reference range : 6.0 - 8.3 gm/dL . The reference range was not u sed to interpret th is result as normal/abnormal . Albumin (test code = 3.4 g/dL 3.5-5 L 51283-8) Total Bilirubin (test 0.5 mg/dL 0.2-1.2 code = 1975-2) Bilirubin, Direct 0.2 mg/dL 0.1-0.5 (test code = 1968-7) Alkaline Phosphatase 67 U/L 40-150 (test code = 6768-6) AST (test code = 42 U/L 5-34 H 1920-8) ALT (test code = 19 U/L 6-55 1742-6) [place] (test code = AUGUSTA) Lighting Fixtures Decorator ID - RISHI Holder Lab Interpretation Abnormal (test code = 99032-3) [facility] METABOLIC [id number] 04:53:00 Test Item Value Reference Range Interpretation Comments SODIUM (BEAKER) 139 meq/L 136-145 (test code = 381) POTASSIUM (BEAKER) 3.5 meq/L 3.5-5.1 (test code = 379) CHLORIDE (BEAKER) 105 meq/L 98-107 (test code = 382) CO2 (BEAKER) (test 25 meq/L 22-29 code = 355) BLOOD UREA NITROGEN 15 mg/dL 7-21 (BEAKER) (test code = 354) CREATININE (BEAKER) 0.69 mg/dL 0.57-1.25 (test code = 358) GLUCOSE RANDOM 97 mg/dL 70-105 (BEAKER) (test code = 652) CALCIUM (BEAKER) 8.4 mg/dL 8.4-10.2 (test code = 697) EGFR (BEAKER) (test 86 mL/min/1.73 ESTIMA DENNY GFR IS code = 1092) sq m NOT ACCURATE CREATININE CLEARANCE IN PREDICTING GLOMERULAR FILTRATION RATE . ESTIMATED GFR I S NOT APPLICABLE FOR DIALYSIS PATIEN TS. Lighting Fixtures Decorator ID Dannie BLACKWELL [facility] FUNCTION [id number] 04:53:00 Test Item Value Reference Range Interpretation Comments TOTAL PROTEIN (BEAKER) (test code = 6.9 gm/dL 6.0-8.3 770) ALBUMIN (BEAKER) (test code = 1145) 3.4 g/dL 3.5-5.0 L BILIRUBIN TOTAL (BEAKER) (test code 0.5 mg/dL 0.2-1.2 = 377) BILIRUBIN DIRECT (BEAKER) (test 0.2 mg/dL 0.1-0.5 code = 706) ALKALINE PHOSPHATASE (BEAKER) (test 67 U/L 40-150 code = 346) AST (SGOT) (RENEAKER) (test code = 42 U/L 5-34 H 353) ALT (SGPT) (RENEAKER) (test code = 19 U/L 6-55 347) Lighting Fixtures Decorator ROSARIO BLACKWELL WPROTHROMBIN [id number] 04:46:00 Test Item Value Reference Range Interpretation Comments PROTIME (DEDRA) (test code = 55.5 seconds 11.9-14.2 H 759) INR (DEDRA) (test code = 370) 6.47 <=5.90 Effective 12/31/2018: PT Reference Range ChangeNew: 11.9-14.2 Previous: 11.7- 14.7RECOMMENDED COUMADIN/WARFARIN INR THERAPY RANGESSTANDARD DOSE: 2.0-3.0 Includes: PROPHYLAXIS for venous thrombosis, systemic embolization; TREATMENT for venous thrombosis and/or pulmonary embolus.HIGH RISK: Target INR is2.5-3.5 for patients wiht mechanical heart valves.PT/[id number] 04:45:00 Test Item Value Reference Interpretation Comments Range Protime (test code = 55.5 See_Comment H [Autom ated 5902-2) message] The system which generated this result transmitted reference range : 11.9 - 14.2 seconds. The reference range was not used to interpret this result as normal/abnormal . INR (test code = 6.47 See_Comment [Automated 6301-6) message] The system which generated this result transmitted reference range : <=5.90. The reference range was not used to interpret this result as normal/abnormal . PTT (test code = 128.5 See_Comment H [Automated 14609-1) message] The system which generated this result transmitted reference range : 22.5 - 36.0 seconds. The reference range was not used to interpret this result as normal/abnormal . [place] (test code = Effective 12/31/2018: [place]) PT Reference Range ChangeNew: 11.9-14.2 Previous: 11.7-14.7 RECOMMENDED COUMADIN/WARFARIN INR THERAPY RANGESSTANDARD DOSE: 2.0-3.0 Includes: PROPHYLAXIS for venous thrombosis, systemic embolization; TREATMENT for venous thrombosis and/or pulmonary embolus.HIGH RISK: Target INR is 2.5-3.5 for patients wiht mechanical heart valves. Lab Interpretation Abnormal (test code = 60185-3) [facility] W/PLT COUNT & AUTO [id number] 04:45:00 Test Item Value Reference Range Interpretation Comments WHITE BLOOD CELL COUNT (BEAKER) 4.5 K/ L 3.5-10.5 (test code = 775) RED BLOOD CELL COUNT (BEAKER) 1.90 M/ L 3.93-5.22 L (test code = 761) HEMOGLOBIN (BEAKER) (test code = 5.0 GM/DL 11.2-15.7 LL 410) HEMATOCRIT (BEAKER) (test code = 17.5 % 34.1-44.9 L 411) MEAN CORPUSCULAR VOLUME (BEAKER) 92.1 fL 79.4-94.8 (test code = 753) MEAN CORPUSCULAR HEMOGLOBIN 26.3 pg 25.6-32.2 (BEAKER) (test code = 751) MEAN CORPUSCULAR HEMOGLOBIN CONC 28.6 GM/DL 32.2-35.5 L (BEAKER) (test code = 752) RED CELL DISTRIBUTION WIDTH 21.9 % 11.7-14.4 H (BEAKER) (test code = 412) PLATELET COUNT (BEAKER) (test 406 K/CU MM 150-450 code = 756) MEAN PLATELET VOLUME (BEAKER) 10.4 fL 9.4-12.3 (test code = 754) NUCLEATED RED BLOOD CELLS 0 /100 WBC 0-0 (BEAKER) (test code = 413) NEUTROPHILS RELATIVE PERCENT 75 % (BEAKER) (test code = 429) LYMPHOCYTES RELATIVE PERCENT 20 % (BEAKER) (test code = 430) MONOCYTES RELATIVE PERCENT 5 % (BEAKER) (test code = 431) EOSINOPHILS RELATIVE PERCENT 0 % (BEAKER) (test code = 432) BASOPHILS RELATIVE PERCENT 0 % (BEAKER) (test code = 437) NEUTROPHILS ABSOLUTE COUNT 3.34 K/ L 1.56-6.13 (BEAKER) (test code = 670) LYMPHOCYTES ABSOLUTE COUNT 0.90 K/ L 1.18-3.74 L (BEAKER) (test code = 414) MONOCYTES ABSOLUTE COUNT (BEAKER) 0.20 K/ L 0.24-0.36 L (test code = 415) EOSINOPHILS ABSOLUTE COUNT 0.00 K/ L 0.04-0.36 L (BEAKER) (test code = 416) BASOPHILS ABSOLUTE COUNT (BEAKER) 0.00 K/ L 0.01-0.08 L (test code = 417) IMMATURE GRANULOCYTES-RELATIVE 1 % 0-1 PERCENT (BEAKER) (test code = 2801) [id number] 04:45:00 Test Item Value Reference Range Interpretation Comments PROTIME (BEAKER) (test code = 55.5 seconds 11.9-14.2 H 759) INR (BEAKER) (test code = 370) 6.47 <=5.90 HH PARTIAL THROMBOPLASTIN TIME 128.5 seconds 22.5-36.0 H (BEAKER) (test code = 760) Effective 12/31/2018: PT Reference Range ChangeNew: 11.9-14.2 Previous: 11.7- 14.7RECOMMENDED COUMADIN/WARFARIN INR THERAPY RANGESSTANDARD DOSE: 2.0-3.0 Includes: PROPHYLAXIS for venous thrombosis, systemic embolization; TREATMENT for venous thrombosis and/or pulmonary embolus.HIGH RISK: Target INR is2.5-3.5 for patients wiht mechanical heart valves.[id number] 04:40:00 Test Item Value Reference Range Interpretation Comments D-Dimer, Quant (test 1.74 See_Comment H [Autom ated code = 18504-1) message] The system which generated this result transmitted reference range : <0.50 MG/L FEU. The reference range was not used to interpr et this result as normal/abnormal . [place] (test code = AUGUSTA) Intended Use: The D-Dimer Assay can be used to aid in the diagnosis of Deep Vein Thrombosis (DVT) and Pulmonary Embolism Disease (PED).In patients with low pre-test probability, various studies concerning STA Liatest D-dimer test have reported that with a cutoff value of 0.50 MG/L FEU, the Negative Predictive Value (NPV) regarding the exclusion of thrombosis is within 95-100% range. Lab Interpretation Abnormal (test code = 44481-2) [id number] 04:40:00 Test Item Value Reference Range Interpretation Comments D-DIMER QUANTITATIVE (BEAKER) 1.74 MG/L FEU <0.50 H (test code = 671) Intended Use: The D-Dimer Assay can be used to aid in the diagnosis of Deep Vein Thrombosis (DVT) and Pulmonary Embolism Disease (PED).In patients with low pre- test probability, various studies concerning STA Liatest D-dimer test have reported that with a cutoff value of 0.50 MG/L FEU, the Negative Predictive Value (NPV) regarding the exclusion of thrombosis is within 95-100% range. Lactate dehydrogenase (LDH)2020-08-09 04:34:00 Test Item Value Reference Range Interpretation Comments LDH (test code = 706 U/L 125-220 H Specimen 2532-0) slightly hemolyzed [place] (test code = AUGUSTA) Lighting Fixtures Decorator ID - RISHI W Lab Interpretation Abnormal (test code = 01427-7) [facility]LDH)2020-08-09 04:34:00 Test Item Value Reference Range Interpretation Comments LACTATE DEHYDROGENASE 706 U/L 125-220 H Specim en slightly (BEAKER) (test code = hemoly zed 635) Lighting Fixtures Decorator ID Dannie BLACKWELL WRAD, CHEST, 1 VIEW, NON [id number] 23:34:00Reason for exam:->CHEST PAINShould this be performed at the bedside?->Yes [facility] : 1960 Sex: FFINAL REPORT RAD, CHEST, 1 VIEW, NON DEPT INDICATION: CHEST PAIN COMPARISON: Plain radiograph the chest dated 01/08/2019. FINDINGS: Portable frontal view of the chest. IMPRESSION: Support Lines: None. Lungs and pleura: Unchanged bandlike airspace opacities in left retrocardiac area, similar when compared to study from 2019 possibly due to scarring and atelectasis. No pleural effusion or new lobar consolidation. No overt pulmonary edema. No pneumothorax.Heart and mediastinum: Unchanged cardiomediastinal silhouette which is exaggerated by technique. Post surgical changes of a median sternotomy and cardiac valve repair.Additional findings: No acute osseous normality. Signed: Fabiana Hamilton Verified Date/Time: 08/08/2020 23:34:25 CBC W/PLT COUNT & AUTO [id number] 23:31:00 Test Item Value Reference Range Interpretation Comments WHITE BLOOD CELL COUNT (BEAKER) 5.1 K/ L 3.5-10.5 (test code = 775) RED BLOOD CELL COUNT (BEAKER) 2.02 M/ L 3.93-5.22 L (test code = 761) HEMOGLOBIN (BEAKER) (test code = 5.3 GM/DL 11.2-15.7 LL 410) HEMATOCRIT (BEAKER) (test code = 18.8 % 34.1-44.9 L 411) MEAN CORPUSCULAR VOLUME (BEAKER) 93.1 fL 79.4-94.8 (test code = 753) MEAN CORPUSCULAR HEMOGLOBIN 26.2 pg 25.6-32.2 (BEAKER) (test code = 751) MEAN CORPUSCULAR HEMOGLOBIN CONC 28.2 GM/DL 32.2-35.5 L (BEAKER) (test code = 752) RED CELL DISTRIBUTION WIDTH 21.9 % 11.7-14.4 H (BEAKER) (test code = 412) PLATELET COUNT (BEAKER) (test 405 K/CU MM 150-450 code = 756) MEAN PLATELET VOLUME (BEAKER) 10.6 fL 9.4-12.3 (test code = 754) NUCLEATED RED BLOOD CELLS 1 /100 WBC 0-0 H (BEAKER) (test code = 413) NEUTROPHILS RELATIVE PERCENT 75 % (BEAKER) (test code = 429) LYMPHOCYTES RELATIVE PERCENT 19 % (BEAKER) (test code = 430) MONOCYTES RELATIVE PERCENT 5 % (BEAKER) (test code = 431) EOSINOPHILS RELATIVE PERCENT 0 % (BEAKER) (test code = 432) BASOPHILS RELATIVE PERCENT 0 % (BEAKER) (test code = 437) NEUTROPHILS ABSOLUTE COUNT 3.86 K/ L 1.56-6.13 (BEAKER) (test code = 670) LYMPHOCYTES ABSOLUTE COUNT 0.99 K/ L 1.18-3.74 L (BEAKER) (test code = 414) MONOCYTES ABSOLUTE COUNT (BEAKER) 0.25 K/ L 0.24-0.36 (test code = 415) EOSINOPHILS ABSOLUTE COUNT 0.00 K/ L 0.04-0.36 L (BEAKER) (test code = 416) BASOPHILS ABSOLUTE COUNT (BEAKER) 0.00 K/ L 0.01-0.08 L (test code = 417) IMMATURE GRANULOCYTES-RELATIVE 0 % 0-1 PERCENT (BEAKER) (test code = 2801) B-type Natriuretic Factor (BNP)2020-08-08 23:30:00 Test Item Value Reference Range Interpretation Comments BNP (test code = 01342-5) 235 pg/mL 0-100 H [place] (test code = [place]) [employer]xtures Decorator ID - DB Lab Interpretation (test Abnormal code = 09576-1) [facility]2020-08-08 23:30:00 Test Item Value Reference Range Interpretation Comments B-TYPE NATRIURETIC PEPTIDE (BEAKER) 235 pg/mL 0-100 H (test code = 700) [employer] Decorator ID - DBTROPONIN [id number] 23:29:00 Test Item Value Reference Range Interpretation Comments TROPONIN I (BEAKER) (test code = 397) < ng/mL 0.00-0.03 Troponin I (TnI) levels must [...] failure, acidosis, acute neurological disease, and persistent tachyarrhythmia.[employer] Decorator ID - DBBASIC METABOLIC PANEL 2020-08-08 23:24:00 Test Item Value Reference Range Interpretation Comments SODIUM (BEAKER) 135 meq/L 136-145 L (test code = 381) POTASSIUM (BEAKER) 3.7 meq/L 3.5-5.1 (test code = 379) CHLORIDE (BEAKER) 104 meq/L 98-107 (test code = 382) CO2 (BEAKER) (test 21 meq/L 22-29 L code = 355) BLOOD UREA NITROGEN 17 mg/dL 7-21 (BEAKER) (test code = 354) CREATININE (BEAKER) 0.78 mg/dL 0.57-1.25 (test code = 358) GLUCOSE RANDOM 106 mg/dL 70-105 H (BEAKER) (test code = 652) CALCIUM (BEAKER) 8.3 mg/dL 8.4-10.2 L (test code = 697) EGFR (BEAKER) (test 75 mL/min/1.73 ESTIMA DENNY GFR IS code = 1092) sq m NOT ACCURATE CREATININE CLEARANCE IN PREDICTING GLOMERULAR FILTRATION RATE . ESTIMATED GFR I S NOT APPLICABLE FOR DIALYSIS PATIEN TS. [employer] Fi[employer] Decorator ID - DBCRITICAL [id number] 23:01:51Patrick Segura MD 08/09/2020 5:33 AMCritical CarePerformed by: Patrick SeguraMDAuthorized by: Soheila Infante MD Total critical care time: 35 minutesCritical care time was exclusive of separately billable procedures and treating other patients.Critical care was necessary to treat or prevent imminent or life- threatening deterioration of the following conditions: symptomatic anemia requiring multiple pRBC transfusions.Critical care was time spent personally by me on the following activities: blood draw for specimens, development of treatment plan with patient or surrogate, discussions with consultants, examination of patient, evaluation of patient's response to treatment, obtaining history from patient or surrogate, ordering and performing treatments and interventions, ordering and review of laboratory studies, ordering and review of radiographic studies, pulse oximetry, re-evaluation of patient's condition and review of old charts.[facility] HospitalEKG-[id number] 00:00:00 Ordered by an unspecified provider.[facility] HospitalPROTHROMBIN TIME/[id number] 06:03:00 Test Item Value Reference Range Interpretation Comments [...] valves.While on warfarin.CBC W/PLT COUNT & AUTO [id number] 06:20:00 Test Item Value Reference Range Interpretation [...] PERCENT (BEAKER) (test code = 2801) PROTHROMBIN TIME/[id number] 06:35:00 Test Item Value Reference Range Interpretation [...] for patients wiht mechanical heart valves.OCCULT BLOOD, [id number] 23:23:00 Test Item Value Reference Range Interpretation Comments FECAL OCCULT BLOOD (BEAKER) (test Negative Negative code = 618) PROTHROMBIN TIME/[id number] 07:00:00 Test Item Value Reference Range Interpretation [...] mechanical heart valves.CBC W/PLT COUNT & AUTO [id number] 06:52:00 Test Item Value Reference Range Interpretation [...] IMMATURE GRANULOCYTES-RELATIVE 2 % 0-1 H PERCENT (BEAKER) (test code = 2801) MYOCARD IMAGING, MULTI, PHARM, [id number] 16:05:00FINAL REPORT PROCEDURE: MYOCARDIAL PERFUSION SPECT IMAGING (Rest/Stress)CPT CODE: 53552 INDICATION: Elevated troponin CARDIOVASCULAR PROFILE:CAD History: NoneSymptoms: [...] MDReport Verified Date/Time: 01/12/2019 16:05:30 Reading Location: [address] Reading Room [id number] 08:57:00 Test Item Value Reference Range Interpretation Comments THYROID STIMULATING HORMONE 1.50 uIU/mL 0.35-4.94 (BEAKER) (test code = 772) [id number] 08:56:00 Test Item Value Reference Range Interpretation Comments T4 TOTAL (BEAKER) (test code = 895) 7.9 ug/dL 4.9-11.7 PROTHROMBIN TIME/[id number] 03:12:00 Test Item Value Reference Range Interpretation [...] (BEAKER) (test code = 413) BASIC METABOLIC [id number] 14:05:00 Test Item Value Reference Range Interpretation [...] 697) EGFR (BEAKER) (test 89 mL/min/1.73 ESTIMA DENNY GFR IS code = 1092) sq m NOT ACCURATE CREATININE CLEARANCE IN PREDICTING GLOMERULAR FILTRATION RATE . ESTIMATED GFR I S NOT APPLICABLE FOR DIALYSIS PATIEN TS. TROPONIN [id number] 09:07:00 Test Item Value Reference Range Interpretation [...] acidosis, acute neurological disease, and persistent tachyarrhythmia.TROPONIN [id number] 06:51:00 Test Item Value Reference Range Interpretation [...] acute neurological disease, and persistent tachyarrhythmia.BASIC METABOLIC [id number] 06:51:00 Test Item Value Reference Range Interpretation [...] 697) EGFR (BEAKER) (test 84 mL/min/1.73 ESTIMA DENNY GFR IS code = 1092) sq m NOT ACCURATE CREATININE CLEARANCE IN PREDICTING GLOMERULAR FILTRATION RATE . ESTIMATED GFR I S NOT APPLICABLE FOR DIALYSIS PATIEN TS. [id number] 06:44:00 Test Item Value Reference Range Interpretation Comments MAGNESIUM (BEAKER) (test code = 1.8 mg/dL 1.6-2.6 627) [id number] 04:26:00 Test Item Value Reference Range Interpretation [...] heparin sliding scalePer heparin sliding scaleHEMOGLOBIN AND [id number] 04:15:00 Test Item Value Reference Range Interpretation Comments HEMOGLOBIN (BEAKER) (test code = 9.5 GM/DL 11.2-15.7 L 410) HEMATOCRIT (BEAKER) (test code = 30.2 % 34.1-44.9 L 411) TROPONIN [id number] 22:28:00 Test Item Value Reference Range Interpretation [...] failure, acidosis, acute neurological disease, and persistent tachyarrhythmia.PT/[id number] 22:15:00 Test Item Value Reference Range Interpretation [...] scalePer heparin sliding scaleRAD, ABDOMEN/KUB, 1 VIEW [id number] 18:44:00Reason for exam:->vomitingFINAL REPORT Abdomen dated January [...] MDReport Verified Date/Time: 01/10/2019 18:44:41 Reading Location: [facility] B1 C013Y CT Body Reading Room [id number] 14:44:00 Test Item Value Reference Range Interpretation Comments MAGNESIUM (BEAKER) (test code = 1.6 mg/dL 1.6-2.6 627) BASIC METABOLIC [id number] 14:44:00 Test Item Value Reference Range Interpretation [...] 697) EGFR (BEAKER) (test 87 mL/min/1.73 ESTIMA DENNY GFR IS code = 1092) sq m NOT ACCURATE CREATININE CLEARANCE IN PREDICTING GLOMERULAR FILTRATION RATE . ESTIMATED GFR I S NOT APPLICABLE FOR DIALYSIS PATIEN TS. TROPONIN [id number] 14:44:00 Test Item Value Reference Range Interpretation [...] H PERCENT (BEAKER) (test code = 2801) [id number] 13:25:00 Test Item Value Reference Range Interpretation Comments AMYLASE (BEAKER) (test code = 349) 29 U/L 25-125 [id number] 13:25:00 Test Item Value Reference Range Interpretation Comments LIPASE (BEAKER) (test code = 749) 16 U/L 8-78 [id number] 13:24:00 Test Item Value Reference Range Interpretation Comments PARTIAL THROMBOPLASTIN TIME 41.1 seconds 22.5-36.0 H (BEAKER) (test code = 760) 6 hours after starting heparin infusion and as indicated per sliding scale HEMOGLOBIN AND [id number] 13:10:00 Test Item Value Reference Range Interpretation Comments HEMOGLOBIN (BEAKER) (test code = 9.3 GM/DL 11.2-15.7 L 410) HEMATOCRIT (BEAKER) (test code = 30.0 % 34.1-44.9 L 411) U/S, ABDOMINAL, [id number] 12:16:00Abdomen limited area? Add comment if clarification [...] cause for the patient's pain identified. Signed: Nemesio Lopez MDReport Verified Date/Time: 01/10/2019 12:16:23 Reading Location: [facility] B1 C013X Ortho Consult Reading Room [id number] 20:52:00 Test Item Value Reference Range Interpretation [...] for patients wiht mechanical heart valves.HEMOGLOBIN AND [id number] 16:23:00 Test Item Value Reference Range Interpretation Comments HEMOGLOBIN (BEAKER) (test code = 9.4 GM/DL 11.2-15.7 L 410) HEMATOCRIT (BEAKER) (test code = 29.9 % 34.1-44.9 L 411) [id number] 07:42:00 Test Item Value Reference Range Interpretation [...] INR is2.5-3.5 for patients wiht mechanical heart valves.[id number] 03:41:00 Test Item Value Reference Range Interpretation Comments MAGNESIUM (BEAKER) (test code = 1.7 mg/dL 1.6-2.6 627) BASIC METABOLIC [id number] 03:41:00 Test Item Value Reference Range Interpretation [...] 697) EGFR (BEAKER) (test 89 mL/min/1.73 ESTIMA DENNY GFR IS code = 1092) sq m NOT ACCURATE CREATININE CLEARANCE IN PREDICTING GLOMERULAR FILTRATION RATE . ESTIMATED GFR I S NOT APPLICABLE FOR DIALYSIS PATIEN TS. PROTHROMBIN [id number] 03:35:00 Test Item Value Reference Range Interpretation [...] for patients wiht mechanical heart valves.HEMOGLOBIN AND [id number] 03:21:00 Test Item Value Reference Range Interpretation Comments HEMOGLOBIN (BEAKER) (test code = 8.8 GM/DL 11.2-15.7 L 410) HEMATOCRIT (BEAKER) (test code = 27.9 % 34.1-44.9 L 411) [id number] 23:57:00 Test Item Value Reference Range Interpretation [...] INR is2.5-3.5 for patients wiht mechanical heart valves.PT/[id number] 22:20:00 Test Item Value Reference Range Interpretation [...] is on agartrobanPatient is on agartrobanHEMOGLOBIN AND [id number] 22:08:00 Test Item Value Reference Range Interpretation Comments HEMOGLOBIN (BEAKER) (test code = 9.6 GM/DL 11.2-15.7 L 410) HEMATOCRIT (BEAKER) (test code = 30.5 % 34.1-44.9 L 411) HEMOGLOBIN AND [id number] 16:25:00 Test Item Value Reference Range Interpretation [...] WBC 0-0 (BEAKER) (test code = 413) [id number] 15:07:00 Test Item Value Reference Range Interpretation Comments PARTIAL THROMBOPLASTIN TIME 59.8 seconds 22.5-36.0 H (BEAKER) (test code = 760) PROTHROMBIN TIME/[id number] 14:32:00 Test Item Value Reference Range Interpretation [...] pg/mL 0-100 H (test code = 700) [id number] 12:34:00 Test Item Value Reference Range Interpretation Comments POTASSIUM (BEAKER) (test code = 3.9 meq/L 3.5-5.1 379) [id number] 12:34:00 Test Item Value Reference Range Interpretation Comments MAGNESIUM (BEAKER) (test code = 2.0 mg/dL 1.6-2.6 627) [id number] 11:33:00 Test Item Value Reference Range Interpretation Comments PROCALCITONIN (BEAKER) (test code 0.05 ng/mL <0.05 H = 3036) SEPSIS RISK (ng/mL)Low: 0.05-0.50Intermediate: 0.51-2.00High: >=2.01LACTIC ACID, [id number] 10:31:00 Test Item Value Reference Range Interpretation Comments LACTATE BLOOD VENOUS (2) (BEAKER) 0.7 mmol/L 0.5-2.2 (test code = 2872) HEMOGLOBIN AND [id number] 10:10:00 Test Item Value Reference Range Interpretation Comments HEMOGLOBIN (BEAKER) (test code = 8.3 GM/DL 11.2-15.7 L 410) HEMATOCRIT (BEAKER) (test code = 26.2 % 34.1-44.9 L 411) BASIC METABOLIC [id number] 08:27:00 Test Item Value Reference Range Interpretation [...] 697) EGFR (BEAKER) (test 83 mL/min/1.73 ESTIMA DENNY GFR IS code = 1092) sq m NOT ACCURATE CREATININE CLEARANCE IN PREDICTING GLOMERULAR FILTRATION RATE . ESTIMATED GFR I S NOT APPLICABLE FOR DIALYSIS PATIEN TS. RAD, CHEST, 1 VIEW, NON [id number] 08:17:00Reason for exam:->pulmonary edemaShould this be performed [...] and improved inspiratory ef fort. Signed: Shobha Wilkseport Verified Date/Time: 01/08/2019 08:17:31 Reading Location: [facility] Radiology Reading Room [id number] 08:12:00 Test Item Value Reference Range Interpretation Comments MAGNESIUM (BEAKER) (test code = 2.0 mg/dL 1.6-2.6 627) [id number] 07:14:00 Test Item Value Reference Range Interpretation [...] L (test code = 2590) HEMOGLOBIN AND [id number] 06:25:00 Test Item Value Reference Range Interpretation [...] = 1414) RAD, CHEST, 1 VIEW, NON [id number] 23:31:00Reason for exam:- >DyspneaShould this be performed [...] MDReport Verified Date/Time: 01/07/2019 23:31:03 Reading Location: [address] Reading Room COMPREHENSIVE METABOLIC PANEL 2019-01-07 [...] 347) EGFR (BEAKER) (test 79 mL/min/1.73 ESTIMA DENNY GFR IS code = 1092) sq m NOT ACCURATE CREATININE CLEARANCE IN PREDICTING GLOMERULAR FILTRATION RATE . ESTIMATED GFR I S NOT APPLICABLE FOR DIALYSIS PATIEN TS. [id number] 22:51:00 Test Item Value Reference Range Interpretation Comments MAGNESIUM (BEAKER) (test code = 1.3 mg/dL 1.6-2.6 L 627) [id number] 22:45:00 Test Item Value Reference Range Interpretation Comments FIBRINOGEN LEVEL (BEAKER) (test 509 mg/dl 225-434 H code = 658) PROTHROMBIN TIME/[id number] 22:09:00 Test Item Value Reference Range Interpretation [...] mechanical heart valves.CBC W/PLT COUNT & AUTO [id number] 22:05:00 Test Item Value Reference Range Interpretation [...] % 0-1 PERCENT (BEAKER) (test code = 3039)
[2020-10-13] MEDS ORDERED: NA CHLORIDE 0.9% 1,000 ML ONE ×2 (14:13→15:14)
[2020-10-13 14:40] LABS: Absolute Lymphocytes (CBC) 0.8 K/uL (0.7-4.9); Hematocrit 38.9 % (36.0-45.0); Lymphocytes % 8.3 % (15.3-44.8); MPV 8.9 fL (7.6-11.3); RBC Red Blood Cell Count 4.66 M/uL (3.86-4.86)
[2020-10-13 14:52] LABS: Protime INR 3.1
--- NOTE | 2020-10-13 14:53 | RAD REPORT ---
EXAM DESCRIPTION: CT - Head Brain Wo Cont - 10/13/2020 2:34 pm CLINICAL HISTORY: Alteration of awareness/confusion COMPARISON: 2012 TECHNIQUE: Computed axial tomography of the head was obtained. IV contrast was not requested. All CT scans are performed using dose optimization technique as appropriate and may include automated exposure control or mA/KV adjustment according to patient size. FINDINGS: An intracranial bleed is not seen . The ventricles are normal in caliber. No extra-axial fluid collection is noted. Low-density area within the deep white matter left posterior frontal lobe unchanged may represent an old infarction Fluid within the sinuses/ mastoids is not seen. IMPRESSION: No acute intracranial abnormality is seen. If patient's symptoms persist MRI of the bra in would be recommended.
--- NOTE | 2020-10-13 15:09 | RAD REPORT ---
EXAM DESCRIPTION: [place] Single View10/13/2020 2:31 pm CLINICAL HISTORY: Shortness of breath COMPARISON: 2014 FINDINGS: The lungs appear clear of acute infiltrate. The heart is mildly enlarged. Postsurgical changes involve the chest. IMPRESSION: No acute abnormalities displayed
[2020-10-13] MEDS ORDERED: HYDROCORTISONE SUC 100 MG INJ ONE (15:14)
[2020-10-13 15:27] LABS: ALT/SGPT 28 U/L (12-78); AST/SGOT 38 U/L (15-37); Albumin 3.7 g/dL (3.4-5.0); Alkaline Phosphatase 82 U/L (45-117); BUN Blood Urea Nitrogen 15 mg/dL (7-18); Bicarbonate 27 mmol/L (21-32); Bilirubin Direct < 0.1 mg/dL (0-0.2); Bilirubin Total 0.5 mg/dL (0.2-1.0); Creatine Phosphokinase 79 U/L (26-192); Glucose Level 86 mg/dL (74-106); Lipase 82 U/L (73-393); Potassium 4.4 mmol/L (3.5-5.1); Protein, Total 8.2 g/dL (6.4-8.2); Sodium Level 136 mmol/L (136-145); Troponin (Emerg Dept Use Only) < 0.02 ng/mL (0.0-0.045)
[2020-10-13 15:30] LABS: Urine Blood NEGATIVE (NEG); Urine Glucose NEGATIVE (NEG); Urine Protein NEGATIVE (NEG); Urine Specific Gravity 1.015 (1.005-1.030)
[2020-10-13 15:54] LABS: Barbiturates NEGATIVE (NEGATIVE); Benzodiazepines POSITIVE (NEGATIVE); Cocaine NEGATIVE (NEGATIVE); METHAMPHETAM NEGATIVE (NEGATIVE); Methadone NEGATIVE (NEGATIVE); Opiates POSITIVE (NEGATIVE); Phencyclidine NEGATIVE (NEGATIVE); THC Cannibis NEGATIVE (NEGATIVE)
[2020-10-13 16:05] LABS: Urine Bacteria <20 /HPF (<20); Urine RBC NONE SEEN /HPF (NONE SEEN)
[2020-10-13] MEDS ORDERED: ACETAMINOPHEN 500 MG TAB PO PRN (16:57)
[2020-10-13] MEDS ORDERED: MORPHINE 2 MG/ML SYR IV PRN (16:57)
--- NOTE | 2020-10-13 16:58 | ER ---
Nurse's Notes [facility] Name: Kim Aldana Age: 60 yrs Sex: Female : 1960 Arrival Date: 10/13/2020 Time: 12:36 Bed 23 Private MD: Kayce Cheek H Diagnosis: Hypotension;Altered mental status, unspecified Presentation: 10/13 12:56 Chief complaint: Patient states: have a migraine and my back is hurting. Chief ca1 complaint: Patient's son or daughter states: I am the son's GF. She is altered. She wasn't answering her phone for an hour then when I got at there house, she said she was bathing her 3 dogs and she only has 1 dog, the other has been . She was looking for her cane which she was just holding. On our way here, she was talking to a TV remote. Her son said she is normally alert and oriented x 3 and not like this. Right now, She can answer some questions, but some she's just off. Her son said she wasn't this way yesterday. She has HX of Lupus, and her son said that when her blood works is not normal she gets weak and loopy. Coronavirus screen: Client denies travel out of the [place] in the last 14 days. At this time, the client does not indicate any symptoms associated with coronavirus-19. Ebola Screen: Patient negative for fever greater than or equal to 101.5 degrees Fahrenheit, and additional compatible Ebola Virus Disease symptoms Patient denies exposure to infectious person. Patient denies travel to an Ebola-affected area in the 21 days before illness onset. No symptoms or risks identified at this time. Initial Sepsis Screen: Does the patient meet any 2 criteria? No. Patient's initial sepsis screen is negative. Does the patient have a suspected source of infection? No. Patient's initial sepsis screen is negative. Risk Assessment: Do you want to hurt yourself or someone else? Patient reports no desire to harm self or others. Onset of symptoms was October 13, 2020. 12:56 Method Of Arrival: Wheelchair ca1 12:56 Acuity: CABRERA 2 ca1 Historical: - Allergies: 13:04 Aspirin; ca1 13:04 Compazine; ca1 13:04 Methadone; ca1 13:04 Morphine; ca1 13:04 Neurontin; ca1 13:04 PENICILLINS; ca1 13:04 Phenergan; ca1 13:04 plastic tape; ca1 13:04 Suboxone; ca1 - Home Meds: 15:48 sucralfate 1 gram Oral tab 4 times per day [Active]; metoprolol succinate 50 mg oral aa5 Tb24 once daily [Active]; ferrous sulfate 325 mg (65 mg iron) Oral TbEC daily [Active]; levothyroxine 125 mcg tab once daily [Active]; amitriptyline 50 mg Oral tab 2 times per day [Active]; gabapentin 600 mg oral tab twice a day [Active]; omeprazole 40 mg Oral cpDR 1 cap once daily [Active]; gabapentin 300 mg oral cap once a day [Active]; ondansetron HCl 4 mg Oral tab 3 times per day [Active]; amitriptyline 25 mg Oral tab take one tab every morning and take 3 tabs every night [Active]; venlafaxine 150 mg oral cp24 once daily [Active]; - PMHx: 13:04 arterial insuficiency; Back pain; cerebritis; chest pain; Chronic pain; dejenteritive ca1 joint disease; Dyspepsia; esophageal reflux; fatigue; hypersomnia; lumbar radiculitis; Lupus; menopause; osteomyelitis; Panic Attacks; pulmonary edema; Seizures; Tachycardia; TIA; venous insufficiency; - Immunization history:: Flu vaccine is up to date. - Social history:: Smoking status: Patient reports the use of cigarette tobacco products, denies chronic smoking, but will smoke occasionally. Screenin:00 Abuse screen: No signs of abuse noted. Nutritional screening: No deficits noted. aa5 Tuberculosis screening: No symptoms or risk factors identified. Fall Risk Fall in past 12 months (25 points). IV access (20 points). Mental Status- Overestimates/Forgets Limitations (15 pts.). Total Cool Fall Scale indicates High Risk Score (45 or more points). Fall prevention measures have been instituted. Side Rails Up X 2 Placed Close to Nursing Station. Assessment: 13:05 General: Appears comfortable, Behavior is calm, cooperative, Drowsy. Pain: Denies pain. aa5 Neuro: Level of Consciousness is obeys commands, confused, Drowsy, easy to awaken to verbal stimuli. Oriented to person, place, Splunk Developer are weak bilaterally Moves all extremities. Speech is normal, Facial symmetry appears normal. Cardiovascular: Heart tones S1 S2 present Rhythm is regular. Respiratory: Airway is patent Respiratory effort is even, relaxed, Respiratory pattern is regular, symmetrical, Breath sounds are clear bilaterally. GI: Abdomen is round non-distended, Bowel sounds present X 4 quads. Abd is soft and non tender X 4 quads. : No signs and/or symptoms were reported regarding the genitourinary system. EENT: No signs and/or symptoms were reported regarding the EENT system. Derm: Skin is pink, warm \T\ dry. Musculoskeletal: Range of motion: intact in all extremities. 14:00 Neuro: Level of Consciousness is obeys commands, confused, Drowsy. Oriented to person, aa5 place. Respiratory: Airway is patent Respiratory effort is even, relaxed, Respiratory pattern is regular, symmetrical. Derm: Skin is pink, warm \T\ dry. 15:00 Reassessment: Pt's son at bedside . Neuro: Level of Consciousness is obeys commands, aa5 confused, Oriented to person, place. Respiratory: Airway is patent Respiratory effort is even, relaxed, Respiratory pattern is regular, symmetrical. Derm: Skin is pink, warm \T\ dry. 15:00 General: Behavior is drowsy. aa5 16:00 Reassessment: Pt resting in bed with eyes closed, respirations even and unlabored, skin aa5 is pink/warm/dry. Pt easy to awaken to verbal stimuli. . 17:20 Reassessment: Pt resting in bed with eyes closed, respirations even, snoring, and aa5 unlabored, skin is pink/warm/dry. . 18:20 Reassessment: Pt resting in bed with eyes closed, respirations even and unlabored, skin aa5 is pink/warm/dry. . 19:15 Reassessment: Patient appears in no apparent distress at this time. No changes from jb4 previously documented assessment. Patient and/or family updated on plan of care and expected duration. Pain level reassessed. 20:30 Reassessment: PT remains resting in bed with eyes closed, respirations are even and jb4 unlabored with no s/s of pain or distress noted. 21:30 Reassessment: Patient appears in no apparent distress at this time. No changes from jb4 previously documented assessment. Patient and/or family updated on plan of care and expected duration. Pain level reassessed. Vital Signs: 12:56 BP 99 / 62; Pulse 102; Resp 16 S; Temp 98.1(TE); Pulse Ox 94% on R/A; Weight 61.23 kg ca1 (R); Height 5 ft. 6 in. (167.64 cm) (R); Pain 8/10; 14:02 BP 88 / 54; Pulse 93; Resp 18 S; Pulse Ox 97% on R/A; aa5 14:10 BP 101 / 87; Pulse 97; Resp 16 S; Pulse Ox 98% on R/A; aa5 14:20 BP 96 / 66; Pulse 94; Resp 18 S; Pulse Ox 96% on R/A; aa5 14:35 BP 87 / 49; Pulse 96; Resp 16 S; Pulse Ox 96% on R/A; aa5 14:45 BP 89 / 45; Pulse 95; Resp 16 S; Pulse Ox 96% on R/A; aa5 14:55 BP 72 / 50; Pulse 96; Resp 18 S; Pulse Ox 95% on R/A; aa5 15:00 BP 101 / 57; Pulse 95; Resp 16 S; Temp 97.7(O); Pulse Ox 96% on R/A; aa5 15:05 BP 91 / 51; Pulse 95; Resp 18 S; Pulse Ox 95% on R/A; aa5 15:10 BP 107 / 52; Pulse 94; Resp 16 S; Pulse Ox 96% on R/A; aa5 15:25 BP 106 / 48; Pulse 94; Resp 14 S; Pulse Ox 95% on R/A; aa5 16:00 BP 92 / 56; Pulse 94; Resp 14 S; Pulse Ox 95% on R/A; aa5 16:15 BP 107 / 49; Pulse 94; Resp 16 S; Pulse Ox 95% on R/A; aa5 16:30 BP 96 / 75; Pulse 94; Resp 18 S; Pulse Ox 90% on R/A; aa5 16:40 BP 107 / 62; Pulse 94; Resp 14 S; Pulse Ox 99% on 2 lpm NC; aa5 16:50 BP 105 / 54; Pulse 92; Resp 14 S; Pulse Ox 99% on 2 lpm NC; aa5 17:00 BP 108 / 58; Pulse 92; Resp 18 S; Pulse Ox 98% on 2 lpm NC; aa5 17:10 BP 102 / 57; Pulse 91; Resp 18 S; Pulse Ox 98% on 2 lpm NC; aa5 17:20 BP 101 / 60; Pulse 90; Resp 18 S; Pulse Ox 98% on 2 lpm NC; aa5 17:40 BP 104 / 58; Pulse 89; Resp 18 S; Pulse Ox 99% on 2 lpm NC; aa5 18:00 BP 108 / 56; Pulse 88; Resp 18 S; Pulse Ox 99% on 2 lpm NC; aa5 18:30 BP 107 / 56; Pulse 87; Resp 20 S; Pulse Ox 99% on 2 lpm NC; aa5 18:50 BP 108 / 54; Pulse 84; Resp 20 S; Pulse Ox 99% on 2 lpm NC; aa5 19:50 BP 110 / 64; Pulse 82; Resp 16; Pulse Ox 100% on R/A; jb4 21:00 BP 108 / 58; Pulse 82; Resp 16; Pulse Ox 99% on R/A; jb4 12:56 Body Mass Index 21.79 (61.23 kg, 167.64 cm) ca1 14:55 PA was notified of persistent hypotension, NS bolus ordered (see MAR) aa5 ED Course: 12:36 Patient arrived in ED. am2 12:37 Kayce Cheek DO is Private Physician. am2 13:02 Triage completed. ca1 13:04 Arm band placed on right wrist. ca1 13:05 Patient has correct armband on for positive identification. Bed in low position. Side aa5 rails up X2. Adult w/ patient. monitor worker on. Pulse ox on. NIBP on. 13:13 Victor Hugo Perez PA is PHCP. jr8 13:13 Branden Espino MD is Attending Physician. jr8 13:15 Abbey Gonzales, MELQUIADES is Primary Nurse. aa5 13:50 Inserted saline lock: 20 gauge in left antecubital area, using aseptic technique. IV aa5 inserted by JSOE Lyon. 15:03 Rodriguez cath inserted, using sterile technique, 16 Fr., by az, balloon inflated, to aa5 gravity drainage, urine specimen collected. returned clear yellow urine. Patient tolerated well. 16:57 Ajay Monzon MD is Hospitalizing Provider. jr8 17:00 No provider procedures requiring assistance completed. Patient admitted, IV remains in aa5 place. 19:05 Report given to MELQUIADES Serrano. aa5 20:11 Primary Nurse role handed off by Abbey Gonzales RN mw2 21:29 Jayant Gao, RN is Primary Nurse. jb4 Administered Medications: 14:07 Drug: NS 0.9% 1000 ml Route: IV; Rate: 1000 ml; Site: left antecubital; aa5 15:00 Follow up: IV Status: Completed infusion; IV Intake: 1000ml aa5 15:30 Drug: Solu-CORTEF 100 mg Route: IVP; Site: left antecubital; aa5 15:40 Follow up: Response: No adverse reaction aa5 15:30 Drug: NS 0.9% 1000 ml Route: IV; Rate: 1000 ml; Site: left antecubital; aa5 16:20 Follow up: IV Status: Completed infusion; IV Intake: 1000ml aa5 Intake: 15:00 IV: 1000ml; Total: 1000ml. aa5 16:20 IV: 1000ml; Total: 2000ml. aa5 Outcome: 16:57 Decision to Hospitalize by Provider. jr8 22:13 Patient left the ED. em Signatures: True Wynn RN RN em Abbey Gonzales, MELQUIADES RN aa5 Victor Hugo Perez PA PA jr8 Jayant Gao, RN RN jb4 Reyna Thomas am2 Sherwin Parker mw2 Karol Lake RN RN ca1 Corrections: (The following items were deleted from the chart) 13:05 12:56 Chief complaint: Patient's son or daughter states: I am the son's GF. She is ca1 altered. She wasn't answering her phone for an hour then when I got at there house, she said she was bathing her 3 dogs and she only has 1 dog, the other has been . She was looking for her cane which she was just holding. On our way here, she was talking to a TV remote. Her son said she is normally alert and oriented x 3 and not like this. Right now, She can answer some questions, but some she's just off. Her son said she wasn't this way yesterday. ca1 17:42 13:30 Inserted saline lock: 20 gauge in left antecubital area, using aseptic technique. aa5 IV inserted by JOSE Lyon aa5 19:20 17:20 Reassessment: Pt resting in bed with eyes closed, respirations even and aa5 unlabored. aa5
--- NOTE | 2020-10-13 16:58 | EDPHYS ---
Physician Documentation [facility] Name: Kim Aldana Age: 60 yrs Sex: Female : 1960 Arrival Date: 10/13/2020 Time: 12:36 Bed 23 Private MD: Kayce Cheek H ED Physician Branden Espino HPI: 10/13 16:03 This 60 yrs old Female presents to ER via Wheelchair with complaints of jr8 Altered Mental Status. 16:03 The patient presents with confusion. Onset: The symptoms/episode began/occurred jr8 acutely, today. Possible causes: unknown. Associated signs and symptoms: The patient has no apparent associated signs or symptoms. Current symptoms: In the emergency department the patient's symptoms are unchanged from the initial presentation. Patient's baseline: Neuro: alert and fully oriented, Motor: no deficits, Ambulation: walks without assistance, Speech: normal. It is unknown whether or not the patient has had similar symptoms in the past. The patient has not recently seen a physician. Girlfriend of the son of the patient stated that she normally is A\\[id number]\\Ox4. Stated that she was fine yesterday and today has been confused. History of chronic pain, lupus, UTIs amongst other medical problems. Stated that she has done something similar to this in past but unknown if it was from lupus or other medical problems. Patient currently alert to person, place only. Confused as to the events leading up to this . Historical: - Allergies: 13:04 Aspirin; ca1 13:04 Compazine; ca1 13:04 Methadone; ca1 13:04 Morphine; ca1 13:04 Neurontin; ca1 13:04 PENICILLINS; ca1 13:04 Phenergan; ca1 13:04 plastic tape; ca1 13:04 Suboxone; ca1 - Home Meds: 15:48 sucralfate 1 gram Oral tab 4 times per day [Active]; metoprolol succinate 50 mg oral aa5 Tb24 once daily [Active]; ferrous sulfate 325 mg (65 mg iron) Oral TbEC daily [Active]; levothyroxine 125 mcg tab once daily [Active]; amitriptyline 50 mg Oral tab 2 times per day [Active]; gabapentin 600 mg oral tab twice a day [Active]; omeprazole 40 mg Oral cpDR 1 cap once daily [Active]; gabapentin 300 mg oral cap once a day [Active]; ondansetron HCl 4 mg Oral tab 3 times per day [Active]; amitriptyline 25 mg Oral tab take one tab every morning and take 3 tabs every night [Active]; venlafaxine 150 mg oral cp24 once daily [Active]; - PMHx: 13:04 arterial insuficiency; Back pain; cerebritis; chest pain; Chronic pain; dejenteritive ca1 joint disease; Dyspepsia; esophageal reflux; fatigue; hypersomnia; lumbar radiculitis; Lupus; menopause; osteomyelitis; Panic Attacks; pulmonary edema; Seizures; Tachycardia; TIA; venous insufficiency; - Immunization history:: Flu vaccine is up to date. - Social history:: Smoking status: Patient reports the use of cigarette tobacco products, denies chronic smoking, but will smoke occasionally. ROS: 16:03 Eyes: Negative for injury, pain, redness, and discharge, ENT: Negative for injury, jr8 pain, and discharge, Neck: Negative for injury, pain, and swelling, Cardiovascular: Negative for chest pain, palpitations, and edema, Respiratory: Negative for shortness of breath, cough, wheezing, and pleuritic chest pain, Abdomen/GI: Negative for abdominal pain, nausea, vomiting, diarrhea, and constipation, Skin: Negative for injury, rash, and discoloration. 16:03 Back: Positive for pain at rest. 16:03 MS/extremity: Positive for pain, of the left foot. 16:03 Neuro: Positive for altered mental status. Exam: 16:03 Head/Face: Normocephalic, atraumatic. Eyes: Pupils equal round and reactive to light, jr8 extra-ocular motions intact. Lids and lashes normal. Conjunctiva and sclera are non-icteric and not injected. Cornea within normal limits. Periorbital areas with no swelling, redness, or edema. ENT: Nares patent. No nasal discharge, no septal abnormalities noted. Tympanic membranes are normal and external auditory canals are clear. Oropharynx with no redness, swelling, or masses, exudates, or evidence of obstruction, uvula midline. Mucous membranes moist. Neck: Trachea midline, no thyromegaly or masses palpated, and no cervical lymphadenopathy. Supple, full range of motion without nuchal rigidity, or vertebral point tenderness. No Meningismus. Chest/axilla: Normal chest wall appearance and motion. Nontender with no deformity. No lesions are appreciated. Cardiovascular: Regular rate and rhythm with a normal S1 and S2. No gallops, murmurs, or rubs. Normal PMI, no JVD. No pulse deficits. Respiratory: Lungs have equal breath sounds bilaterally, clear to auscultation and percussion. No rales, rhonchi or wheezes noted. No increased work of breathing, no retractions or nasal flaring. Abdomen/GI: Soft, non-tender, with normal bowel sounds. No distension or tympany. No guarding or rebound. No evidence of tenderness throughout. Back: No spinal tenderness. No costovertebral tenderness. Full range of motion. Skin: Warm, dry with normal turgor. Normal color with no rashes, no lesions, and no evidence of cellulitis. MS/ Extremity: Pulses equal, no cyanosis. Neurovascular intact. Full, normal range of motion. 16:03 Neuro: Orientation: to person, place, Mentation: able to follow commands, confused, Memory: immediate memory is intact, remote memory is impaired, recent memory is impaired, Cranial nerves: CN I not tested, CN II- XII are normal as tested, extraocular movements are intact, Facial palsy and sensory deficits are absent. Nystagmus is absent. Speech is clear and appropriate. Tongue strength is normal, Cerebellar function: normal finger to nose testing, Motor: moves all fours, Sensation: no obvious gross deficits, seizure activity, is not displayed by the patient, Abnormal movements: there are no abnormal movements. Vital Signs: 12:56 BP 99 / 62; Pulse 102; Resp 16 S; Temp 98.1(TE); Pulse Ox 94% on R/A; Weight 61.23 kg ca1 (R); Height 5 ft. 6 in. (167.64 cm) (R); Pain 8/10; 14:02 BP 88 / 54; Pulse 93; Resp 18 S; Pulse Ox 97% on R/A; aa5 14:10 BP 101 / 87; Pulse 97; Resp 16 S; Pulse Ox 98% on R/A; aa5 14:20 BP 96 / 66; Pulse 94; Resp 18 S; Pulse Ox 96% on R/A; aa5 14:35 BP 87 / 49; Pulse 96; Resp 16 S; Pulse Ox 96% on R/A; aa5 14:45 BP 89 / 45; Pulse 95; Resp 16 S; Pulse Ox 96% on R/A; aa5 14:55 BP 72 / 50; Pulse 96; Resp 18 S; Pulse Ox 95% on R/A; aa5 15:00 BP 101 / 57; Pulse 95; Resp 16 S; Temp 97.7(O); Pulse Ox 96% on R/A; aa5 15:05 BP 91 / 51; Pulse 95; Resp 18 S; Pulse Ox 95% on R/A; aa5 15:10 BP 107 / 52; Pulse 94; Resp 16 S; Pulse Ox 96% on R/A; aa5 15:25 BP 106 / 48; Pulse 94; Resp 14 S; Pulse Ox 95% on R/A; aa5 16:00 BP 92 / 56; Pulse 94; Resp 14 S; Pulse Ox 95% on R/A; aa5 16:15 BP 107 / 49; Pulse 94; Resp 16 S; Pulse Ox 95% on R/A; aa5 16:30 BP 96 / 75; Pulse 94; Resp 18 S; Pulse Ox 90% on R/A; aa5 16:40 BP 107 / 62; Pulse 94; Resp 14 S; Pulse Ox 99% on 2 lpm NC; aa5 16:50 BP 105 / 54; Pulse 92; Resp 14 S; Pulse Ox 99% on 2 lpm NC; aa5 17:00 BP 108 / 58; Pulse 92; Resp 18 S; Pulse Ox 98% on 2 lpm NC; aa5 17:10 BP 102 / 57; Pulse 91; Resp 18 S; Pulse Ox 98% on 2 lpm NC; aa5 17:20 BP 101 / 60; Pulse 90; Resp 18 S; Pulse Ox 98% on 2 lpm NC; aa5 17:40 BP 104 / 58; Pulse 89; Resp 18 S; Pulse Ox 99% on 2 lpm NC; aa5 18:00 BP 108 / 56; Pulse 88; Resp 18 S; Pulse Ox 99% on 2 lpm NC; aa5 18:30 BP 107 / 56; Pulse 87; Resp 20 S; Pulse Ox 99% on 2 lpm NC; aa5 18:50 BP 108 / 54; Pulse 84; Resp 20 S; Pulse Ox 99% on 2 lpm NC; aa5 19:50 BP 110 / 64; Pulse 82; Resp 16; Pulse Ox 100% on R/A; jb4 21:00 BP 108 / 58; Pulse 82; Resp 16; Pulse Ox 99% on R/A; jb4 12:56 Body Mass Index 21.79 (61.23 kg, 167.64 cm) ca1 14:55 PA was notified of persistent hypotension, NS bolus ordered (see MAR) aa5 MDM: 13:13 Patient medically screened. [facility] 16:56 Data reviewed: vital signs, nurses notes, lab test result(s), EKG, radiologic studies, [facility] CT scan, plain films. Data interpreted: Pulse oximetry: on room air is 94 %. Interpretation: borderline. Counseling: I had a detailed discussion with the patient and/or guardian regarding: the historical points, exam findings, and any diagnostic results supporting the discharge/admit diagnosis, lab results, radiology results, the need for further work-up and treatment in the hospital. Physician consultation: Ajay Monzon MD was called at 16:56, was contacted at 16:56, regarding admission, to the telemetry unit. and will see patient. 10/13 13:46 Order name: Urine Culture [facility] 10/13 13:46 Order name: C-Reactive Protein [facility] 10/13 13:46 Order name: Basic Metabolic Panel [facility] 10/13 13:46 Order name: Blood Culture Adult (2) [facility] 10/13 13:46 Order name: CBC with Diff [facility] 10/13 13:46 Order name: CPK [facility] 10/13 13:46 Order name: Lactate [facility] 10/13 13:46 Order name: LFT's [facility] 10/13 13:46 Order name: Lipase [facility] 10/13 13:46 Order name: Procalcitonin [facility] 10/13 13:46 Order name: Protime (+inr) [facility] 10/13 13:46 Order name: Ptt, Activated [facility] 10/13 13:46 Order name: Troponin (emerg Dept Use Only) [facility] 10/13 13:46 Order name: Urine Microscopic Only [facility] 10/13 13:46 Order name: AMMONIA [facility] 10/13 13:46 Order name: Cortisol [facility] 10/13 14:26 Order name: Ammonia; Complete Time: 14:39 EDMS 10/13 14:30 Order name: Lactate; Complete Time: 14:39 EDMS 10/13 14:55 Order name: UDS aa5 10/13 14:57 Order name: Protime (+INR); Complete Time: 15:05 [facility] 10/13 14:57 Order name: PTT, Activated Partial Thromb; Complete Time: 15:05 [facility] 10/13 15:09 Order name: CBC with Automated Diff; Complete Time: 19:59 [facility] 10/13 15:16 Order name: Cortisol; Complete Time: 16:01 [facility] 10/13 15:17 Order name: Urine Dipstick--Ancillary (enter results) 10/13 15:27 Order name: Basic Metabolic Panel; Complete Time: 16:01 [facility] 10/13 15:27 Order name: Liver (Hepatic) Function; Complete Time: 16:01 [facility] 10/13 15:27 Order name: Creatine Phosphokinase; Complete Time: 16:01 [facility] 10/13 15:27 Order name: Troponin (Emerg Dept Use Only); Complete Time: 16:01 [facility] 10/13 15:27 Order name: C-Reactive Protein; Complete Time: 16:01 [facility] 10/13 15:27 Order name: Lipase; Complete Time: 16:01 [facility] 10/13 13:46 Order name: Cath; Complete Time: 15:41 [facility] 10/13 13:46 Order name: Chest Single View XRAY [facility] 10/13 13:46 Order name: Cardiac monitoring; Complete Time: 13:54 [facility] 10/13 13:46 Order name: EKG - Nurse/Tech; Complete Time: 14:07 [facility] 10/13 13:46 Order name: IV Saline Lock - Large Bore; Complete Time: 13:54 [facility] 10/13 13:46 Order name: Labs collected and sent; Complete Time: 13:54 [facility] 10/13 13:46 Order name: O2 Per Protocol; Complete Time: 13:54 [facility] 10/13 13:46 Order name: O2 Sat Monitoring; Complete Time: 13:54 [facility] 10/13 13:46 Order name: Urine Dipstick-Ancillary (obtain specimen); Complete Time: 15:49 [facility] 10/13 13:47 Order name: CT Head Brain wo Cont [facility] 10/13 14:53 Order name: CT; Complete Time: 15:05 [facility] 10/13 15:10 Order name: RAD; Complete Time: 15:11 EDMS 10/13 15:31 Order name: Urine Dipstick-Ancillary; Complete Time: 16:01 EDMS 10/13 15:39 Order name: Procalcitonin; Complete Time: 16:01 [facility]AL 10/13 15:54 Order name: Urine Drug Screen; Complete Time: 16:01 EDMS 10/13 16:05 Order name: Urine Microscopic Only; Complete Time: 16:07 EDAL 10/13 16:32 Order name: TSH aa5 10/13 17:02 Order name: COVID-19 : Document "Date of Symptom Onset" if Symptomatic. jr8 10/13 18:16 Order name: Thyroid Stimulating Hormone; Complete Time: 18:42 EDMS 10/13 19:22 Order name: CORONAVIRUS EDAL 10/13 19:37 Order name: CBC Smear Scan; Complete Time: 19:59 EDMS 10/13 20:17 Order name: SARS-COV-2 RT PCR; Complete Time: 20:29 EDMS Administered Medications: 14:07 Drug: NS 0.9% 1000 ml Route: IV; Rate: 1000 ml; Site: left antecubital; aa5 15:00 Follow up: IV Status: Completed infusion; IV Intake: 1000ml aa5 15:30 Drug: Solu-CORTEF 100 mg Route: IVP; Site: left antecubital; aa5 15:40 Follow up: Response: No adverse reaction aa5 15:30 Drug: NS 0.9% 1000 ml Route: IV; Rate: 1000 ml; Site: left antecubital; aa5 16:20 Follow up: IV Status: Completed infusion; IV Intake: 1000ml aa5 Disposition: 10/14 07:53 Co-signature as Attending Physician, Branden Espino MD I agree with the assessment and laureano plan of care. Disposition: 10/13/20 16:57 Hospitalization ordered by Ajay Monzon for Observation. Preliminary diagnosis are Hypotension, Altered mental status, unspecified. - Bed requested for Telemetry/MedSurg (observation). - Status is Observation. em - Condition is Stable. - Problem is new. - Symptoms have improved. Signatures: Dispatcher [employer] [facility] Danita Rivas RN RN dw Anderson, Corey, MD MD cha Munoz, Edgar, RN RN em Calderon, Audri, RN RN aa5 Victor Hugo Perez PA PA jr8 Monik Jesus eb Karol Lake RN RN ca1 Corrections: (The following items were deleted from the chart) 10/13 15:41 13:46 Accucheck ordered. jr8 aa5 19:03 16:57 Hospitalization Ordered by Ajay Monzon MD for Observation. Preliminary eb diagnosis is Hypotension; Altered mental status, unspecified. Bed requested for Telemetry/MedSurg (observation). Status is Observation. Condition is Stable. Problem is new. Symptoms have improved. jr8 19:13 19:03 10/13/2020 16:57 Hospitalization Ordered by Ajay Monzon MD for Observation. dw Preliminary diagnosis is Hypotension; Altered mental status, unspecified. Bed requested for Telemetry/MedSurg (observation). Status is Observation. Condition is Stable. Problem is new. Symptoms have improved. eb 20:39 19:13 10/13/2020 16:57 Hospitalization Ordered by Ajay Monzon MD for Observation. dw Preliminary diagnosis is Hypotension; Altered mental status, unspecified. Bed requested for Telemetry/MedSurg (observation). Status is Observation. Condition is Stable. Problem is new. Symptoms have improved. dw 22:13 20:39 10/13/2020 16:57 Hospitalization Ordered by Ajay Monzon MD for Observation. em Preliminary diagnosis is Hypotension; Altered mental status, unspecified. Bed requested for Telemetry/MedSurg (observation). Status is Observation. Condition is Stable. Problem is new. Symptoms have improved. dw
[2020-10-13] MEDS: NA CHLORIDE 0.9% 1,000 ML IV SCH ×2 (17:00→22:46)
[2020-10-13] MEDS ORDERED: ONDANSETRON 4 MG/2 ML VIAL IV PRN (17:44)
[2020-10-13 19:36] LABS: Anisocytosis 1+; Blood Morphology Comment NOTED (NOT SEEN); Platelet Estimate ADEQ; White Blood Cell Scan OK (OK)
[2020-10-13 22:25] VITALS: BMI 22.9
[2020-10-14] MEDS: NA CHLORIDE 0.9% 1,000 ML IV SCH ×2 (03:00→07:40)
[2020-10-14 06:28] LABS: ALT/SGPT 24 U/L (12-78); AST/SGOT 28 U/L (15-37); Albumin 2.6 g/dL (3.4-5.0); Alkaline Phosphatase 67 U/L (45-117); BUN Blood Urea Nitrogen 13 mg/dL (7-18); Bicarbonate 27 mmol/L (21-32); Bilirubin Total 0.2 mg/dL (0.2-1.0); Glucose Level 84 mg/dL (74-106); Potassium 4.3 mmol/L (3.5-5.1); Protein, Total 6.1 g/dL (6.4-8.2); Sodium Level 142 mmol/L (136-145)
[2020-10-14 06:37] LABS: Absolute Lymphocytes (CBC) 1.3 K/uL (0.7-4.9); Basophils % 0.2 % (0-1.3); Hematocrit 30.5 % (36.0-45.0); Lymphocytes % 14.1 % (15.3-44.8)
[2020-10-14 07:06] LABS: Protime INR 4.22
[2020-10-14 07:50] VITALS: O2SAT 98
[2020-10-14 14:24] VITALS: BP 107/56; TEMP 98.6
--- NOTE | 2020-10-15 08:33 | P.HP ---
Certification for Inpatient Patient admitted to: Observation With expected LOS: <2 Midnights Patient will require the following post-hospital care: None Practitioner: I am a practitioner with admitting privileges, knowledge of patient current condition, hospital course, and medical plan of care. Services: Services provided to patient in accordance with Admission requirements found in Title 42 Section 412.3 of the Code of Federal Regulations Patient History Date of Service: 10/13/20 Reason for admission: Altered mental status History of Present Illness: Patient is a very pleasant 60-year-old female who came to the hospital with confusion. She was seen by her [id number] who is a EMT plasma center technician and noted that she was not making a lot of sense. Patient apparently take Xanax regularly. However, she had taken a [place] because she was having pain. Afterwards, she was very confused and she was not making a lot of sense. She was brought into the emergency room for further evaluation. Allergies hydromorphone HCl [From Dilaudid] Allergy (Intermediate, Verified 10/13/20 22:28) Nausea/Vomiting Penicillins Allergy (Intermediate, Verified 10/13/20 22:28) Itching/Hives/Rash prochlorperazine [From Compazine] Allergy (Intermediate, Verified 10/13/20 22:28) Nausea/Vomiting prochlorperazine edisylate [From Compazine] Allergy (Intermediate, Verified 10/13/20 22:28) Nausea/Vomiting prochlorperazine maleate [From Compazine] Allergy (Intermediate, Verified 10/13/20 22:28) Nausea/Vomiting promethazine [From Phenergan] Allergy (Intermediate, Verified 10/13/20 22:28) Nausea/Vomiting morphine Allergy (Mild, Verified 10/14/20 07:43) Itching/Hives/Rash promethazine HCl [From Phenergan] Allergy (Verified 10/13/20 22:28) Nausea/Vomiting plastic tape Allergy (Mild, Uncoded 10/13/20 22:28) Itching Tape Allergy (Mild, Uncoded 10/13/20 22:28) Itching Home Medications: ALPRAZolam [Alprazolam] 2 mg PO TID PRN 11/11/19 Cyanocobalamin [Vitamin B-12*] 1,000 mcg IM DIRECTED 11/11/19 Gabapentin 600 mg PO BID 11/11/19 Levothyroxine [Synthroid*] 0.125 mg PO DAILY 11/11/19 Metoprolol Succinate [Toprol Xl*] 50 mg PO DAILY 11/11/19 Mupirocin Oint [Bactroban 2% Ointment*] 1 marisol TOP DAILY 11/11/19 Omeprazole [Prilosec] 40 mg PO DAILY 11/11/19 Venlafaxine HCl [Effexor*] 150 mg PO DAILY 11/11/19 predniSONE [Prednisone] 2.5 mg PO DAILY 11/11/19 Warfarin Sodium [Coumadin*] 4 mg PO DAILY #30 tab 10/14/20 - Past Medical/Surgical History Has patient received pneumonia vaccine in the past: No Diabetic: No -: SEIZURE DISORDER -: HEART DISEASE AORTIC AND MITRAL VALVE REPLACED -: neuropathy -: osteoarthritis -: Thyroid disease -: Lupus -: Tod hip replacement -: right knee replacement -: amputation of toes left foot -: Bilateral HIP REPLACED -: RIGHT KNEE REPLACED -: MITRAL AORTIC VALVE REPLACED -: tubal ligation -: Colon sx -: Partial left foot removed - Family History Sister History Unknown: Yes Medical History: Heart disease - Social History Smoking Status: Current some day smoker Alcohol use: No CD- Drugs: No Caffeine use: No Place of Residence: Home Review of Systems 10-point ROS is otherwise unremarkable Physical Examination - Vital Signs Temperature: 98.6 F Blood Pressure: 107/56 Pulse: 74 Respirations: 16 Pulse Ox (%): 95 - Physical Exam General: Alert, In no apparent distress, Oriented x1, Confused HEENT: Atraumatic, PERRLA, Mucous membr. moist/pink, EOMI, Sclerae nonicteric Neck: Supple, 2+ carotid pulse no bruit, No LAD, Without JVD or thyroid abnormality Respiratory: Clear to auscultation bilaterally, Normal air movement Cardiovascular: Regular rate/rhythm, Normal S1 S2, No murmurs Gastrointestinal: Normal bowel sounds, Soft and benign, Non-distended, No tenderness Musculoskeletal: No clubbing, No swelling, No tenderness Integumentary: No rashes Neurological: Normal gait, Normal speech, Normal strength at 5/5 x4 extr, Normal tone, Sensation intact, Cranial nerves 3-12 intact, Normal affect Lymphatics: No axilla or inguinal lymphadenopathy - Studies Microbiology Data (last 24 hrs): 10/13/20 15:14 Catheterized Urine [place] Count - Final No growth. 10/13/20 15:14 Catheterized Urine - Final No growth. 10/13/20 14:24 Blood - Blood Anaerobic Blood Culture - Final 10/13/20 13:50 Blood - Blood Anaerobic Blood Culture - Final Assessment & Plan - Problems (Diagnosis) (1) Altered mental status Status: Acute (2) Warfarin-induced coagulopathy Onset Date: 04/05/17 Status: Acute (3) H/O mechanical aortic valve replacement Onset Date: 04/05/17 Status: Chronic (4) Hypothyroid Onset Date: 04/05/17 Status: Chronic Qualifiers: Hypothyroidism type: unspecified Qualified Code(s): E03.9 - Hypothyroidism, unspecified (5) Neuropathy Onset Date: 04/05/17 Status: Chronic (6) Primary generalized (osteo)arthritis Onset Date: 04/05/17 Status: Chronic (7) Systemic lupus Onset Date: 04/05/17 Status: Chronic Qualifiers: Systemic lupus erythematosus type: unspecified Systemic lupus erythematosus organ involvement: unspecified Qualified Code(s): M32.9 - Systemic lupus erythematosus, unspecified (8) Tobacco abuse Status: Chronic - Plan Plan: 1. Continue with observation for 24 hr and see how her mentation does once [place] gets out of her system. 2. Continue monitoring electrolytes 3. Patient w/ coagulopathy. Will hold warfarin. 4. Patient does not need to make the Xanax and the [place] together 5. GI and DVT prophylaxis Discharge Plan: Home Plan to discharge in: 24 Hours - Advance Directives Does patient have a Living Will: No Does patient have a Durable POA for Healthcare: No - Code Status/Comfort Care Code Status Assessed: Yes Code Status: Full Code Critical Care: No Time Spent Managing PTS Care (In Minutes): 45
--- NOTE | 2020-10-15 08:34 | EKG ---
Test Date: 2020-10-13 Test Time: 13:57:49 Data Entry Associate: SHANNON MEASUREMENT RESULTS: Intervals: Rate: 97 NV: 136 QRSD: 84 QT: 352 QTc: 447 Bruce: P: 31 NV: 136 QRS: -1 T: 12 INTERPRETIVE STATEMENTS: Sinus rhythm with occasional premature ventricular complexes Possible Inferior infarct, age undetermined Anterior infarct, age undetermined Abnormal ECG Compared to ECG 01/07/2019 13:58:10 Ventricular premature complex(es) now present Myocardial infarct finding now present Sinus tachycardia no longer present T-wave abnormality no longer present Electronically Signed On 10-15-20 08:29:40 TWIST MAKER by Rolan Angel
--- NOTE | 2020-10-15 08:39 | P.DS ---
Discharge Date: 10/14/20 Disposition: ROUTINE DISCHARGE Discharge Condition: GOOD Reason for Admission: Altered mental status - Problems (1) Altered mental status Status: Acute (2) Warfarin-induced coagulopathy Onset Date: 04/05/17 Status: Acute (3) H/O mechanical aortic valve replacement Onset Date: 04/05/17 Status: Chronic (4) Hypothyroid Onset Date: 04/05/17 Status: Chronic Qualifiers: Hypothyroidism type: unspecified Qualified Code(s): E03.9 - Hypothyroidism, unspecified (5) Neuropathy Onset Date: 04/05/17 Status: Chronic (6) Primary generalized (osteo)arthritis Onset Date: 04/05/17 Status: Chronic (7) Systemic lupus Onset Date: 04/05/17 Status: Chronic Qualifiers: Systemic lupus erythematosus type: unspecified Systemic lupus erythematosus organ involvement: unspecified Qualified Code(s): M32.9 - Systemic lupus erythematosus, unspecified (8) Tobacco abuse Status: Chronic Brief History of Present Illness: Patient is a very pleasant 60-year-old female who came to the hospital with confusion. She was seen by her [id number] who is a EMT geothermal field technician and noted that she was not making a lot of sense. Patient apparently take Xanax regularly. However, she had taken a [place] because she was having pain. Afterwards, she was very confused and she was not making a lot of sense. She was brought into the emergency room for further evaluation. Hospital Course: Patient clinically doing well today. Patient does not need be in the hospital any further. She is does need to makes is an ex in the nor goes. At this time, patient is stable for discharge home. Vital Signs/Physical Exam: Temp Pulse Resp BP Pulse Ox 98.6 F 74 16 107/56 L 95 10/15/20 08:37 10/15/20 08:37 10/15/20 08:37 10/15/20 08:37 10/15/20 08:37 General: Alert, In no apparent distress, Oriented x3 Laboratory Data at Discharge: WBC 8.90 K/uL (4.3-10.9) 10/14/20 05:20 Hgb 10.1 g/dL (12.0-15.0) L D 10/14/20 05:20 Hct 30.5 % (36.0-45.0) L D 10/14/20 05:20 Plt Count 179 K/uL (152-406) 10/14/20 05:20 PT 49.2 SECONDS (9.5-12.5) H 10/14/20 05:29 INR 4.22 H* 10/14/20 05:29 APTT 53.1 SECONDS (24.3-36.9) H 10/14/20 05:29 Sodium 142 mmol/L (136-145) 10/14/20 05:29 Potassium 4.3 mmol/L (3.5-5.1) 10/14/20 05:29 BUN 13 mg/dL (7-18) 10/14/20 05:29 Creatinine 0.57 mg/dL (0.55-1.3) 10/14/20 05:29 Glucose 84 mg/dL (74-106) 10/14/20 05:29 Total Bilirubin 0.2 mg/dL (0.2-1.0) 10/14/20 05:29 AST 28 U/L (15-37) 10/14/20 05:29 ALT 24 U/L (12-78) 10/14/20 05:29 Alkaline Phosphatase 67 U/L (45-117) 10/14/20 05:29 Lipase 82 U/L (73-393) 10/13/20 13:50 Home Medications: ALPRAZolam [Alprazolam] 2 mg PO TID PRN 11/11/19 Cyanocobalamin [Vitamin B-12*] 1,000 mcg IM DIRECTED 11/11/19 Gabapentin 600 mg PO BID 11/11/19 Levothyroxine [Synthroid*] 0.125 mg PO DAILY 11/11/19 Metoprolol Succinate [Toprol Xl*] 50 mg PO DAILY 11/11/19 Mupirocin Oint [Bactroban 2% Ointment*] 1 marisol TOP DAILY 11/11/19 Omeprazole [Prilosec] 40 mg PO DAILY 11/11/19 Venlafaxine HCl [Effexor*] 150 mg PO DAILY 11/11/19 predniSONE [Prednisone] 2.5 mg PO DAILY 11/11/19 Warfarin Sodium [Coumadin*] 4 mg PO DAILY #30 tab 10/14/20 New Medications: Warfarin Sodium [Coumadin*] 4 mg PO DAILY #30 tab Physician Discharge Instructions: OK TO DC IV AND DC HOME FOLLOW-UP WITH PRIMARY CARE PROVIDER IN 1-2 WEEKS FOLLOW-UP WITH CARDIOLOGY IN 1-2 WEEKS RETURN TO THE ER IF symptoms worsen CALL or TEXT DR. BOWERS AT [phone] IF ANY QUESTIONS REGARDING HOSPITAL STAY. PLEASE CALL THE FLOOR AT [phone] IF ANY MEDICATION OR NURSING QUESTIONS. Diet: AHA Activity: Fall precautions Followup: Rolan Angel MD [ACTIVE - CAN ADMIT] - Ham MCKEON,Kayce Jensen DO [Primary Care Provider] - Time spent managing pt's care (in minutes): 35
== END 2020-10-14 14:18 | disposition home or self-care (01) ==
LOC: ER 12:36 → ERHOLD 16:57 → 2ND 21:48
PROVIDERS: ADMIT Hospitalist; ATTEND Hospitalist
DX: R41.82 Altered mental status, unspecified (principal); E03.9 Hypothyroidism, unspecified; G62.9 Polyneuropathy, unspecified; M19.91 Primary osteoarthritis, unspecified site; M32.9 Systemic lupus erythematosus, unspecified; I95.9 Hypotension, unspecified; Z95.2 Presence of prosthetic heart valve; F17.210 Nicotine dependence, cigarettes, uncomplicated; Z79.01 Long term (current) use of anticoagulants; Z88.0 Allergy status to penicillin; Z88.6 Allergy status to analgesic agent; Z88.8 Allergy status to other drugs, medicaments and biological substances; Z91.048 Other nonmedicinal substance allergy status; Z20.822 Contact with and (suspected) exposure to COVID-19
CPT/HCPCS: 96361; 93005; 87040 ×2; 87088; 85025 ×2; 87086; 80048; 36415; 82140; 82550; 85610 ×2; 80076; 80307 ×8; 83605; 85730 ×2; 84443; 84484; 83690; 80053; 82533; 84145; 86140; 70450; 71045; 51702; 96374; 99285; U0003; J7030 ×4; J1720; 81003; 81015; G0378

== ENCOUNTER 2020-10-31 20:04 | Inpatient (IN) | payer OTHER ==
--- OUTSIDE RECORDS SUMMARY | 2020-10-31 20:11 | XMS REPORT | Continuity of Care Document ---
:1960 Author Organization [facility] t Address [address] [place] [address] [address] [place] [address] Care Team Providers Name Role Phone Pcp [...] Effective Date Expiration Date Sour ce Number [facility] [id number] [facility] - MEDICARE MGD 00:00:00 - Medical CAREAARP/MEDICARE Center [id number] 2020-Present Problems Condition Condition Condition Status Onset [...] 05 [facility] - (Bulk) 00:00: Medical 00 [place] Morpholi Drug Active Nausea And [facility] Allergy Vomiting 05 [facility] - Analogue 00:00: Medical s 00 [place] Penicill Propensi Active [facility] St ins ty to 01-08 [facility] - adverse 00:00: Medical reaction 00 Center s Social History Social Habit Start Date Stop Date Quantity Comments Source Sex Assigned At [facility] Cigarettes smoked 2020-08-19 2020-08-19 [facility]kes - current (pack per 00:00:00 00:00:00 Medical Center day) - Reported Cigarette 2020-08-19 2020-08-19 [facility]vladimir - pack-years 00:00:00 00:00:00 [facility] Tobacco use and 2020-08-19 2020-08-19 Never used [facility] kes - exposure 00:00:00 00:00:00 [facility] Alcohol intake 2020-08-19 2020-08-19 Current drinker HUGO garcia Luvladimir - 00:00:00 00:00:00 of alcohol [facility] (finding) Tobacco Comment 2019-01-08 2019-01-08 43 years [facility] Ayse kes - 00:00:00 00:00:00 [facility] History of tobacco 2019-01-08 Current every [facility]vladimir - use 00:00:00 day smoker [facility] Smoking Status Start Date Stop Date Source Current every day smoker 2020-08-19 00:00:00 [facility] Medications Ordered Filled Start Stop Current Ordering [...] needed for Sleep . gabapentin Yes 300mg [id number] Take [address] (NEURONTIN) 1-22 [id number] mg by L ukes - 300 MG [...] % 00:00: instructed Medical ointment 00 . [place] sucralfate 2020- No 1g Take 1 [facility] [...] edical 17 gram 00 :00 30 days. [place] packet magnesium 2020- No 400mg Q.5D Take [address] oxide 08-[facility] ([facility] 00:00: 23:59 (400 mg Medic al 400 mg 00 :00 total) by [place] (241.3 mg mouth 2 magnesium) (two) tablet [...] Amount: 3 tablets ondansetron 4mg Take 1 [facility] (ZOFRAN) 4 08-23 tablet (4 Marcie es - MG tablet 00:00: 00:00 mg total) Me dical 00 :00 by mouth 3 Center (three) times daily before meals for 30 days. Vital Signs Vital Name Observation Time Observation Value Comments Source Systolic blood 2020-08-26 12:30:00 102 mm[Hg] [facility] Diastolic blood 2020-08-26 12:30:00 58 mm[Hg] [facility] Heart rate 2020-08-26 12:30:00 78 /min [facility] Body temperature 2020-08-26 12:30:00 36.83 Aminta [facility] Respiratory rate 2020-08-26 12:30:00 20 /min [facility] Oxygen saturation in 2020-08-26 12:30:00 96 /min [facility] Arterial blood by Medical Ce nter Pulse oximetry Body weight 2020-08-26 07:00:00 62.37 kg [facility] BMI 2020-08-26 07:00:00 22.20 kg/m2 [facility] Body height 2020-08-26 06:04:00 167.6 cm [facility] Procedures Procedure Date / Time Performed Performing Clinician Sourc e VANCOMYCIN LEVEL, TROUGH 2020-08-26 10:08:00 Jazzy Christian [facility] BASIC METABOLIC PANEL (7) 2020-08-26 03:11:00 Ella Urbina [facility] CBC (HEMOGRAM ONLY) 2020-08-26 03:11:00 Ella Urbina [facility] MAGNESIUM 2020-08-26 03:11:00 Ella Urbina [facility] PROTHROMBIN TIME/INR 2020-08-26 03:11:00 Ciara [facility] BASIC METABOLIC PANEL (7) 2020-08-25 05:49:00 Ciara [facility] CBC (HEMOGRAM ONLY) 2020-08-25 05:49:00 Ciara [facility] MAGNESIUM 2020-08-25 05:49:00 Ciara [facility] PROTHROMBIN TIME/INR 2020-08-25 05:49:00 [facility] VANCOMYCIN LEVEL, TROUGH 2020-08-24 10:10:00 AnahiJazzy Sheldon [facility] BASIC METABOLIC PANEL (7) 2020-08-24 05:26:00 Ciara [facility] CBC (HEMOGRAM ONLY) 2020-08-24 05:26:00 Ciara [facility] MAGNESIUM 2020-08-24 05:26:00 Ciara [facility] PROTHROMBIN TIME/INR 2020-08-24 05:26:00 [facility] BASIC METABOLIC PANEL (7) 2020-08-23 05:50:00 Ciara [facility] CBC (HEMOGRAM ONLY) 2020-08-23 05:50:00 Ciara [facility] MAGNESIUM 2020-08-23 05:50:00 Ciara [facility] PROTHROMBIN TIME/INR 2020-08-23 05:50:00 [facility] SARS-COV2/RT-PCR ([facility] & 2020-08-22 18:31:00 Elder Samaniego [facility] - REF LABS) [facility] XR CHEST 1 VIEW 2020-08-22 13:51:00 Ciara [facility]/BEDSIDE Medical [place] ECG 12-LEAD 2020-08-22 12:59:52 Unknown, Hl7 Doctor [facility] BASIC METABOLIC PANEL (7) 2020-08-22 05:15:00 Ciara [facility] CBC (HEMOGRAM ONLY) 2020-08-22 05:15:00 Ciara [facility] MAGNESIUM 2020-08-22 05:15:00 [facility]ara [facility] PROTHROMBIN TIME/INR 2020-08-22 05:15:00 Ciara [facility] XR CHEST 1 VIEW 2020-08-21 10:23:00 Ciara [facility]/BEDSIDE [facility] BASIC METABOLIC PANEL (7) 2020-08-21 04:57:00 Ciara [facility] CBC (HEMOGRAM ONLY) 2020-08-21 04:57:00 Ciara [facility] MAGNESIUM 2020-08-21 04:57:00 Ciara [facility] PROTHROMBIN TIME/INR 2020-08-21 04:57:00 Ciara [facility] APTT 2020-08-20 06:24:00 Carito [facility] BASIC METABOLIC PANEL (7) 2020-08-20 03:41:00 Ciara [facility] CBC (HEMOGRAM ONLY) 2020-08-20 03:41:00 Ciara [facility] MAGNESIUM 2020-08-20 03:41:00 Ciara [facility] PROTHROMBIN TIME/INR 2020-08-20 03:41:00 [facility] VANCOMYCIN LEVEL, RANDOM 2020-08-20 03:41:[address] [facility] CORTISOL 2020-08-20 03:41:00 Ciara [facility] APTT 2020-08-20 03:41:00 Carito [facility] APTT 2020-08-19 18:24:00 Ciara [facility] BASIC METABOLIC PANEL (7) 2020-08-19 10:38:00 Ciara [facility] MAGNESIUM 2020-08-19 10:38:00 Ciara [facility] VANCOMYCIN LEVEL, TROUGH 2020-08-19 10:38:[address] [facility] APTT 2020-08-19 10:37:00 Carito [facility] CBC (HEMOGRAM ONLY) 2020-08-19 10:37:00 Ciara [facility] PROTHROMBIN TIME/INR 2020-08-19 10:37:00 Ciara [facility] APTT 2020-08-18 21:41:00 Carito [facility] BLOOD CULTURE 2020-08-18 12:13:00 Gayle Gallo [facility] BLOOD CULTURE 2020-08-18 12:12:00 Gayle Gallo [facility] APTT 2020-08-18 12:07:00 Carito [facility] BASIC METABOLIC PANEL (7) 2020-08-18 12:06:00 CiaraElla [facility] MAGNESIUM 2020-08-18 12:06:00 [facility] VANCOMYCIN LEVEL, TROUGH 2020-08-18 12:06:00 Of[facility]man [facility] PROTHROMBIN TIME/INR 2020-08-18 06:09:00 Carito [facility] CBC (HEMOGRAM ONLY) 2020-08-18 06:09:00 Carito [facility] APTT 2020-08-18 01:19:00 Carito [facility] CBC (HEMOGRAM ONLY) 2020-08-17 22:20:00 Carito [facility] APTT 2020-08-17 22:20:00 Carito [facility] URINALYSIS W/ REFLEX 2020-08-17 15:36:00 DanetteElder [facility] - URINE CULTURE [facility] APTT 2020-08-17 14:29:00 Carito [facility] XR CHEST 1 VIEW 2020-08-17 05:01:00 Mike [facility] BLOOD CULTURE 2020-08-17 03:45:00 Mike [facility] BLOOD CULTURE 2020-08-17 03:36:00 Mike [facility] PROTHROMBIN TIME/INR 2020-08-17 03:36[facility] 2020-08-17 03:36:00 Carito [facility] COMPREHENSIVE METABOLIC 2020-08-16 23:38:00 Mike [facility] CBC W/PLT COUNT & AUTO 2020-08-16 23:38:00 Mike [facility] LACTIC ACID, VENOUS 2020-08-16 23:38:00 Mike [facility] APTT 2020-08-16 23:38:00 [facility] 2020-08-16 22:04:00 Mike [facility] POCT-ACT 2020-08-16 16:56:00 [facility] PERIPHERAL ANGIOS / 2020-08-16 15:37:00 Danette Elder [facility] S t kes - AORTOGRAM [facility] PROTHROMBIN TIME/INR 2020-08-16 10:48:00 [facility] 2020-08-16 10:48:00 [facility] CBC (HEMOGRAM ONLY) 2020-08-16 02:58:00 [facility] 2020-08-16 02:58:00 Carito, [facility] MR LUMBAR SPINE WITHOUT 2020-08-15 22:08:00 Geraldine Sanchez I [facility] - IV CONTRAST [facility] SARS-COV2/RT-PCR ([facility] & 2020-08-15 15:08:00 Elder Samaniego [facility] - REF LABS) [facility] CBC (HEMOGRAM ONLY) 2020-08-15 15:06:00 Carito, [facility] APTT 2020-08-15 15:06:00 Carito, [facility] HC ARTERIAL DOPPLER LEGS 2020-08-15 10:28:00 Lonnie Lim I [facility] CBC (HEMOGRAM ONLY) 2020-08-15 05:24:00 Carito, [facility] APTT 2020-08-15 05:24:00 Carito, [facility] PROTHROMBIN TIME/INR 2020-08-15 05:24:00 Carito, [facility] APTT 2020-08-14 20:20:00 Carito, [facility] CBC (HEMOGRAM ONLY) 2020-08-14 18:56:00 Carito, [facility] APTT 2020-08-14 18:35:00 Cartio, [facility] APTT 2020-08-14 10:55:00 Carito, [facility] APTT 2020-08-14 08:46:00 Carito, [facility] CT LUMBAR SPINE WITH IV 2020-08-14 07:45:00 Carito, [facility] PROTHROMBIN TIME/INR 2020-08-14 06:05:00 Abhinav Arzate [facility] CBC (HEMOGRAM ONLY) 2020-08-14 06:04:00 Carito [facility] BASIC METABOLIC PANEL (7) 2020-08-13 22:39:00 Mackenzie Arzate i [facility] APTT 2020-08-13 22:39:00 [facility] POCT-GLUCOSE METER 2020-08-13 18:02:00 Carito [facility] POCT-GLUCOSE METER 2020-08-13 12:41:00 Carito [facility] APTT 2020-08-13 12:08:00 Carito, [facility] POCT-GLUCOSE METER 2020-08-13 08:43:00 Carito [facility] PROTHROMBIN TIME/INR 2020-08-13 05:46:00 Carito [facility] CBC (HEMOGRAM ONLY) 2020-08-13 05:46:00 Carito [facility] APTT 2020-08-13 05:46:00 [facility] POCT-GLUCOSE METER 2020-08-12 21:35:00 [facility] 2020-08-12 20:49:00 Carito [facility] APTT 2020-08-12 08:52:00 Carito [facility] PROTHROMBIN TIME/INR 2020-08-12 05:35:00 Carito, [facility] CBC (HEMOGRAM ONLY) 2020-08-12 05:35:00 Carito, [facility] CBC (HEMOGRAM ONLY) 2020-08-11 23:53:00 Carito [facility] APTT 2020-08-11 23:53:00 Carito [facility] PLATELET COUNT 2020-08-11 15:08:00 Carito [facility] APTT 2020-08-11 15:08:00 Carito [facility] CBC (HEMOGRAM ONLY) 2020-08-11 15:08:00 Carito [facility] HEMOGLOBIN AND HEMATOCRIT 2020-08-11 08:57:00 Ke [facility] POCT-GLUCOSE METER 2020-08-11 06:40:00 Carito [facility] PROTHROMBIN TIME/INR 2020-08-11 03:35:00 Carito [facility] PREPARE LEUKO-REDUCED RBC 2020-08-10 23:54:00 Soheila Infante [facility] POCT-GLUCOSE METER 2020-08-10 17:56:00 Carito [facility] OCCULT BLOOD, STOOL 2020-08-10 13:11:00 Carito [facility] POCT-GLUCOSE METER 2020-08-10 12:44:00 Carito [facility] HC ARTERIAL(JULIO W 2020-08-10 10:26:00 Carito [facility] POCT-GLUCOSE METER 2020-08-10 09:35:00 Carito [facility] CBC W/PLT COUNT & AUTO 2020-08-10 08:29:00 Abhinav Arzate [facility] BASIC METABOLIC PANEL (7) 2020-08-10 08:29:00 Mackenzie Arzate i [facility] PROTHROMBIN TIME/INR 2020-08-10 08:29:00 Abhinav Arzate [facility] POCT-GLUCOSE METER 2020-08-10 06:49:00 Carito [facility] TRANSFUSE LEUKO-REDUCED 2020-08-09 13:40:39 Soheila Infante [facility] - RED BLOOD CELLS [facility] POCT-GLUCOSE METER 2020-08-09 12:31:00 Carito [facility] TROPONIN I 2020-08-09 12:30:00 Soheila Infante [facility] 2D ECHO W/ DOPPLER 2020-08-09 10:44:27 Soheila Infante [facility] - (CW/PW/COLOR) [facility] TRANSFUSE LEUKO-REDUCED 2020-08-09 09:57:04 Soheila Infante [facility] - RED BLOOD CELLS [facility] SARS-COV2/INFLUENZA/RSV 2020-08-09 04:14:00 Katharina Segura [facility] - RT-PCR [facility] D-DIMER 2020-08-09 04:14:[address] Ronel [facility] PT/APTT 2020-08-09 04:14:[address] [facility] HAPTOGLOBIN 2020-08-09 04:14:00 DenisePatrick Smiley [facility] IRON, TIBC, % SAT. 2020-08-09 04:14:00 Patrick Segura [facility] (WITHOUT FERRITIN) [facility] 2020-08-09 04:14:00 Patrick Segura [facility] TROPONIN I 2020-08-09 04:14:00 Soheila Infante [facility] s - [facility] BASIC METABOLIC PANEL (7) 2020-08-09 04:14:00 Soheila Infante [facility] HEPATIC FUNCTION PANEL 2020-08-09 04:14:[address] [facility] CBC W/PLT COUNT & AUTO 2020-08-09 04:14:00 Soheila Infante [facility] DIFFERENTIAL [facility] TYPE AND SCREEN, 2020-08-09 04:14:[address] [facility] S t kes - AUTOMATED [facility] XR CHEST 1 VIEW 2020-08-08 23:29:00 Patrick Segura [facility] - PORTABLE/BEDSIDE [facility] CRITICAL CARE 2020-08-08 23:01:51 [facility] CBC W/PLT COUNT & AUTO 2020-08-08 22:50:00 Ronel Villafuerte [facility] BASIC METABOLIC PANEL (7) 2020-08-08 22:50:00 Ronel Villafuerte CH, I [facility] TROPONIN I 2020-08-08 22:50:00 Ronel Villafuerte [facility] B-TYPE NATRIURETIC FACTOR 2020-08-08 22:50:00 Ronel Villafuerte CH, I [facility] (BNP) [facility] LACTATE DEHYDROGENASE 2020-08-08 22:50:00 [facility] CenterPatrick [facility] (LDH) [facility] ECG 12-LEAD 2020-08-08 22:22:31 Unknown, Hl7 Doctor [facility] CARDIAC CATH REPORT - 2020-08-08 00:00:00 Provider, Default [facility] SCAN Scanning [facility] REPORT OF PROCEDURE - 2020-08-08 00:00:00 Provider, Default [facility] ENDOSCOPY SCAN [facility] Plan of Care Planned Activity Planned Date Details Comments Source Future Scheduled 2021-08-[address] [facility] - Test 00:00[facility]00 [facility] colon (procedure) [code = 564729216] Future Scheduled 2020-08-[address] [...] s - Test 00:00:00 (procedure) [code = [facility] 15070808] Future Scheduled 2009 SHINGLES VACCINES ([address] [facility] - Test 00:00:00 of 2) [code = Medical Center SHINGLES VACCINES (1 of 2)] Future Scheduled [address] - Test 00:00:00 malignant neoplasm of [facility] cervix (procedure) [code = 311116925] Future Scheduled 1978 DTAP/TDAP/TD VACCINES [facility] - Test 00:00:00 (1 - Tdap) [code = Medical C enter DTAP/TDAP/TD VACCINES (1 - Tdap)] Future Scheduled 1977 HEPATITIS C SCRE[facility]ING [facility] - Test 00:00:00 [code = HEPATITIS C Medical Center SCREENING] Future Scheduled [address] [facility] - Test 00:00:00 [facility] breast (procedure) [code = 467525148] Results Test Description Test Time Test Comments Results Result Sourc e Comments CARDIAC CATH 2020-09-03 Ordered by an HUGO Cai kes REPORT - SCAN 08:47:52 unspecified - Medical provider. Center Vancomycin level, trough 2020-08-26 11:37:00 Test Item Value Reference Range Interpretation Comme nts Vancomycin Tr (test code = 4092-3) 15.8 ug/mL 10-20 [place] (test code = [place]) Media Manager ID - CAROLYNN C Lab Interpretation (test code = 09250-1) Normal [facility] LEV[facility], [id number] 11:37:00 Test Item Value Reference Range Interpretation Comments VANCOMYCIN TROUGH (BEAKER) (test 15.8 ug/mL 10.0-20.0 code = 522) Media Manager ID - CAROLYNN Burrell Prothrombin time/INR while on [id number] 04:41:00 Test Item Value Reference Interpretation Comments [...] warfarin. Lab Interpretation Abnormal (test code = 30311-2) [facility] Center[facility] [id number] 04:41:00 Test Item Value Reference Range Interpretation [...] wiht mechanical heart valves.While on warfarin.Basic Metabolic [id number] 04:00:00 Test Item Value Reference Range Interpretation Comments Sodium (test code = 139 meq/L [id number] 3679-2) Potassium (test code = 4.3 meq/L 3.5-5.1 [...] Calcium (test code = 8.4 mg/dL 8.4-10.2 46073-0) EGFR (test code = 62 mL/min/1.73 [place] [address]-0) NOT ACCURATE CREATININE CLEARANCE IN PREDICTING GLOMERULAR FILTRATION RATE . ESTIMATED GFR I S NOT APPLICABLE FOR DIALYSIS PATIENTS. [place] (test code = [place]) Media Manager ID - RISHI W Lab Interpretation Abnormal (test code = 05912-0) [facility] 04:00:00 Test Item Value Reference Range Interpretation Comments Magnesium (test code = 2.0 mg/dL 1.6-2.6 Speci men 43242-4) slightly hemolyzed [place] (test code = [place]) Media Manager ID - RISHI W Lab Interpretation Normal (test code = 99679-8) [facility] 04:00:00 Test Item Value Reference Range Interpretation Comments MAGNESIUM (BEAKER) 2.0 mg/dL 1.6-2.6 Specimen slightly (test code = 627) hemolyzed Media Manager ID - RISHI WBASIC METABOLIC [id number] 04:00:00 Test Item Value Reference Range Interpretation [...] S NOT APPLICABLE FOR DIALYSIS PATIEN TS. Media Manager ID - RISHI WCBC (hemogram only)2020-08-26 03:21:00 Test Item Value Reference Range Interpretation Comments WBC (test code = 6690-2) 4.8 See_Comment [A utomated message] The system [employer] generated this result transmitted ref erence range: 3.5 - 10 .5 K/L. The refe rence range was not u sed to interpret this result as normal/abnor mal. RBC (test code = 789-8) 3.06 See_Comment L [Au tomated message] The system [employer] generated this result transmitted ref erence range: 3.93 - 5 .22 M/L. The refe rence range was not u sed to interpret this result as normal/abnor mal. MCHC (test code = 786-4) 28.7 See_Comment L [A utomated message] The system [employer] generated this result transmitted ref erence range: [...] See_Comment [Aut omated message] 777-3) The system [employer] generated this result transmitted ref erence range: 150 - 45 0 K/CU MM. The referen ce range was not u sed to interpret this result as normal/abnor mal. MPV (test code = 9.7 fL 9.4-12.3 74279-4) nRBC (test code = 413) 0 See_Comment [Aut omated message] The system [employer] generated this result transmitted ref erence range: 0 - 0 /1 00 WBC. The refere nce range was not u sed to interpret this result as normal/abnor mal. Lab Interpretation (test Abnormal code = 95970-7) [facility] (HEMOGRAM ONLY)2020-08-26 03:21:00 Test Item Value Reference [...] (BEAKER) (test code = 413) BASIC METABOLIC [id number] 08:10:00 Test Item Value Reference Range Interpretation [...] S NOT APPLICABLE FOR DIALYSIS PATIEN TS. Media Manager ID - MIKE [id number] 08:10:00 Test Item Value Reference Range Interpretation Comments MAGNESIUM (BEAKER) (test code = 1.9 mg/dL 1.6-2.6 627) Media Manager ID - MIKE MPROTHROMBIN [id number] 06:19:00 Test Item Value Reference Range Interpretation [...] (BEAKER) (test code = 413) VANCOMYCIN LEVEL, [id number] 10:41:00 Test Item Value Reference Range Interpretation Comments VANCOMYCIN TROUGH (BEAKER) (test 12.3 ug/mL 10.0-20.0 code = 522) Media Manager ID - LIZZIE FBASIC METABOLIC [id number] 06:40:00 Test Item Value Reference Range Interpretation [...] S NOT APPLICABLE FOR DIALYSIS PATIEN TS. Media Manager ID - MIKE [id number] 06:40:00 Test Item Value Reference Range Interpretation Comments MAGNESIUM (BEAKER) (test code = 1.8 mg/dL 1.6-2.6 627) Media Manager ID - MIKE MPROTHROMBIN [id number] 05:59:00 Test Item Value Reference Range Interpretation [...] 0-0 (BEAKER) (test code = 413) Blood [id number] 13:00:00 Test Item Value Reference Range Interpretation Comments Result (test code = No growth in 5 days 6463-4) [facility] [id number] 13:00:00 Test Item Value Reference Range Interpretation Comments CULTURE (BEAKER) (test No growth in 5 days code = 1095) BLOOD [id number] 13:00:00 Test Item Value Reference Range Interpretation Comments CULTURE (BEAKER) (test No growth in 5 days code = 1095) BASIC METABOLIC [id number] 08:46:00 Test Item Value Reference Range Interpretation [...] S NOT APPLICABLE FOR DIALYSIS PATIEN TS. Media Manager ID - MIKE [id number] 08:46:00 Test Item Value Reference Range Interpretation Comments MAGNESIUM (BEAKER) (test code = 1.8 mg/dL 1.6-2.6 627) Media Manager ID - MIKE MBLOOD [id number] 08:32:00 Test Item Value Reference Range Interpretation [...] Not Detected, (test code = Negative, See 65496-1) external report for linked test SARS-COV-2 [facility] (test code = 95605-6) [place] (test code = Negative result for [...] of the Act. Fact Sheet for Healthcare Providers:https://www.[employer]/sites/default/f ramez/product/documents/F act_Sheet_HC_Providers_L srm_ULCC-CyX-8.pdf Fact Sheet for Healthcare Patients:https://www.[facility]/sites/default/fi les/product/documents/Fa ct_Sheet_Patients_Lyra_S ARS-CoV-2.pdf Performing Laboratory:[facility] [place] [address] [facility] ([facility])2020-08-23 06:37:00 Test Item Value Reference Range Interpretation Comments SARS-COV2/RT-PCR (test Negative Not Detected, Negative, code = 2551904) See external report for linked test SARS-COV-[address] [facility] CHRIS (test code = 7161413) Negative result for this test determines that [...] 564(g) of the Act.Fact Sheet for Healthcare Providers:https://www.Primekss/sites/default/files/product/documents/Fact_Shee y_YN_Ihokffvuv_Rzlp_KNQN-TbU-4.pdfFact Sheet for Healthcare Patients:https://www.Primekss/sites/default/files/product/ documents/Echk_Rltli_Sohlggut_Lnmx_ZRGY-VuZ-4.pdfPerforming Laboratory:[facility], [place] [address]TZR 12 [id number] 06:32:55Interface, External Ris In - 08/23/2020 6:32 AM CSTVentricular Rate 75 BPMAtrial Rate 75 BPMP-R Interval 178 msQRS Duration 80 msQ-T Interval 418 msQTC Calculation(Bazett) 466 msP Gordo 45 degreesR Gordo 7 degreesT Gordo 49 degreesNormal sinus rhythmNormal ECGWhen compared with ECG of 08-AUG-2020 22:22,Nonspecific T wave abnormality no longer evident in Inferior leadsNonspecific T wave abnormality no longer evident in Lateral leadsConfirmed by MD RAZIA, LESLEE Richardson ([id number]) on 08/23/2020 6:32:52 [facility] CenterPROTHROMBIN TIME/[id number] 06:23:00 Test Item Value Reference Range Interpretation [...] = 413) RAD, CHEST, 1 VIEW, NON [id number] 14:12:00Reason for exam:->chest painShould this be performed at the bedside?->Yes [facility]: 1960 Sex: FFINAL REPORT RAD, CHEST, 1 VIEW, NON DEPT INDICATION: chest pain COMPARISON: 08/21/2020 FINDINGS: Portable frontal view of the chest. IMPRESSION: Support Lines: PICC tip overlies the atriocaval junction Lungs and pleura: Mild bibasilar atelectasis. No focal pneumonia. No pneumothorax.Heart and mediastinum: Stable contours. Stable surgical changes.Additional findings: None. Signed: Adelaide Moore Verified Date/Time: 08/22/2020 14:12:21 Reading Location: [facility] Radiology Reading Room XR chest 1 view portable / [id number] 14:12:00Interface, External Ris In - 08/22/2020 2:14 [...] Moore Verified Date/Time: 08/22/2020 14:12:21 Reading Location: [facility] Radiology Reading Room [facility] [id number] 07:19:00 Test Item Value Reference Range Interpretation [...] S NOT APPLICABLE FOR DIALYSIS PATIEN TS. Media Manager ID Dannie HEARN [id number] 07:19:00 Test Item Value Reference Range Interpretation Comments MAGNESIUM (BEAKER) (test code = 1.7 mg/dL 1.6-2.6 627) Media Manager ID - DHIRAJ LPROTHROMBIN TIME/[id number] 05:47:00 Test Item Value Reference Range Interpretation [...] = 413) RAD, CHEST, 1 VIEW, NON [id number] 10:44:00Reason for exam:->PICC LINE PLACEMENTShould this be performed at the bedside?->Yes [facility] : 1960 Sex: FFINAL [...] Powersort Verified Date/Time: 08/21/2020 10:44:24 Reading Location: [address] Transitional Reading Room BASIC METABOLIC PANEL [...] S NOT APPLICABLE FOR DIALYSIS PATIEN TS. Media Manager ID - PIAYA [id number] 06:32:00 Test Item Value Reference Range Interpretation Comments MAGNESIUM (BEAKER) (test code = 1.7 mg/dL 1.6-2.6 627) Media Manager ID - PIAYA LPROTHROMBIN TIME/[id number] 05:46:00 Test Item Value Reference Range Interpretation [...] 0-0 (BEAKER) (test code = 413) BLOOD [id number] 11:12:00 Test Item Value Reference Range Interpretation [...] gram 1123) positive cocci in clusters BLOOD [id number] 11:10:00 Test Item Value Reference Range Interpretation [...] bottles: gram 1123) positive cocci in clusters [id number] 06:49:00 Test Item Value Reference Range Interpretation Comments PTT (test code = 66.1 See_Comment H [Automated message] 27899-3) The system WizIQ generated this result transmitted ref erence range: 22.5 - 3 6.0 seconds. The reference range was not used to int erpret this result as normal/abnormal . Lab Interpretation (test Abnormal code = 43749-1) [facility]APTT2021-01-[facility] 06:49:00 Test Item Value Reference Range Interpretation Comments PARTIAL THROMBOPLASTIN TIME 66.1 seconds 22.5-36.0 H (BEAKER) (test code = 760) [id number] 05:54:00 Test Item Value Reference Range Interpretation Comments Cortisol, Total (test code 1.3 ug/dL 3.7-19.4 L = 2755) [place] (test code = [place]) Media Manager ID - EDASI Lab Interpretation (test Abnormal code = 00205-0) [facility] CenterCORTISOL2021-01-16 05:54:00 Test Item Value Reference Range Interpretation Comments CORTISOL, TOTAL (BEAKER) (test code 1.3 ug/dL 3.7-19.4 L = 2755) Media Manager ID - EDASIVancomycin level, nstcpj0886-79-44 05:29:00 Test Item Value Reference Range Interpretation Comments Vancomycin Rm (test 11.5 ug/mL code = 68412-9) [place] (test code = Reference Range: No [place]) NormalsOperator ID - MIKE M [facility] CenterVANCOMYCIN LEVEL, [id number] 05:29:00 Test Item Value Reference Range Interpretation Comments VANCOMYCIN RANDOM (BEAKER) (test 11.5 ug/mL code = 523) Reference Range: No NormalsOperator ID - MIKE [id number] 04:51:00 Test Item Value Reference Range Interpretation Comments PARTIAL THROMBOPLASTIN TIME 171.9 seconds 22.5-36.0 HH (BEAKER) (test code = 760) While on warfarin.BASIC METABOLIC [id number] 04:25:00 Test Item Value Reference Range Interpretation [...] S NOT APPLICABLE FOR DIALYSIS PATIEN TS. Media Manager ID - EDASIPROTHROMBIN TIME/[id number] 04:17:00 Test Item Value Reference Range Interpretation [...] for patients wiht mechanical heart valves.While on warfarin.[id number] 04:11:00 Test Item Value Reference Range Interpretation Comments MAGNESIUM (BEAKER) (test code = 1.7 mg/dL 1.6-2.6 627) Media Manager ID - EDASICBC (HEMOGRAM ONLY)2020-08-20 03:51:00 Test [...] WBC 0-0 (BEAKER) (test code = 413) [id number] 18:55:00 Test Item Value Reference Range Interpretation Comments PARTIAL THROMBOPLASTIN TIME 60.3 seconds 22.5-36.0 H (BEAKER) (test code = 760) [id number] 11:08:00 Test Item Value Reference Range Interpretation Comments MAGNESIUM (BEAKER) 1.7 mg/dL 1.6-2.6 Specimen slightly (test code = 627) hemolyzed Media Manager ID - EDASIBASIC METABOLIC [id number] 11:08:00 Test Item Value Reference Range Interpretation [...] S NOT APPLICABLE FOR DIALYSIS PATIEN TS. Media Manager ID - EDASIVANCOMYCIN LEVEL, [id number] 11:05:00 Test Item Value Reference Range Interpretation Comments VANCOMYCIN TROUGH (BEAKER) (test 27.4 ug/mL 10.0-20.0 H code = 522) Media Manager ID - [id number] 11:05:00 Test Item Value Reference Range Interpretation Comments PARTIAL THROMBOPLASTIN TIME 62.3 seconds 22.5-36.0 H (BEAKER) (test code = 760) While on warfarin.PROTHROMBIN TIME/[id number] 11:04:00 Test Item Value Reference Range Interpretation [...] WBC 0-0 (BEAKER) (test code = 413) [id number] 22:03:00 Test Item Value Reference Range Interpretation Comments PARTIAL THROMBOPLASTIN TIME 73.4 seconds 22.5-36.0 H (BEAKER) (test code = 760) BASIC METABOLIC [id number] 12:50:00 Test Item Value Reference Range Interpretation [...] S NOT APPLICABLE FOR DIALYSIS PATIEN TS. Media Manager ID - NAEPBUQABQACBQAZ9189-15-85 12:50:00 Test Item Value Reference Range Interpretation Comments MAGNESIUM (BEAKER) (test code = 1.7 mg/dL 1.6-2.6 627) Media Manager ID - AAHAMIDVANCOMYCIN LEVEL, [id number] 12:49:00 Test Item Value Reference Range Interpretation Comments VANCOMYCIN TROUGH (BEAKER) (test 15.6 ug/mL 10.0-20.0 code = 522) Media Manager ID - LZUYNCLAWCR9100-41-12 12:33:00 Test Item Value Reference Range Interpretation Comments PARTIAL THROMBOPLASTIN TIME 76.0 seconds 22.5-36.0 H (BEAKER) (test code = 760) PROTHROMBIN TIME/[id number] 07:04:00 Test Item Value Reference Range Interpretation [...] WBC 0-0 (BEAKER) (test code = 413) [id number] 01:47:00 Test Item Value Reference Range Interpretation Comments PARTIAL THROMBOPLASTIN TIME 37.7 seconds 22.5-36.0 H (BEAKER) (test code = 760) [id number] 22:54:00 Test Item Value Reference Range Interpretation [...] = 413) Urinalysis w/Microscopic + Reflex to [id number] 16:12:00 Test Item Value Reference Range Interpretation Comments Color, UA (test code Yellow = 5778-6) Clarity, UA (test Clear code = 5767-9) Specific Markesan, UA 1.022 1.001-1.035 (test code = 5811-5) pH, UA (test code = 5.5 5.0-8.0 5803-2) Protein, UA (test Negative Negative code = 25908-6) Glucose, UA (test Negative Negative code = 365) Ketones, UA (test Negative Negative code = 2514-8) Bilirubin, UA (test Negative Negative code = 40992-1) Blood, UA (test code Negative Negative = 49244-7) Nitrite, UA (test Negative Negative code = 5802-4) Leukocytes, UA (test Small Negative A code = 5799-2) Urobilinogen, UA 0.2 mg/dL 0.2-1 (test code = 41905-4) RBC, UA (test code = <1 See_Comment [Autom ated 28593-9) message] The system which generated this result [...] . Bacteria, UA (test Rare code = 55388-2) Mucus (test code = Rare 8247-9) Squam Epithel, UA 1 See_Comment [Automate d (test code = 15883-0) messag e] The system which generated this result transmit denny reference range : /HPF. The reference range was not used to interpret this result as normal/abnormal . Amorphous Crystals Rare (test code = 60230-1) Specimen Source (test code = 2795) [place] (test code = [place]) Media Manager ID - [auto]Media Manager ID - tech Lab Interpretation Abnormal (test code = 60261-2) [facility] CenterURINALYSIS W/ REFLEX URINE [id number] 16:12:00 Test Item Value Reference Range Interpretation [...] = 1584) SOURCE(BEAKER) (test code = 2795) Media Manager ID - [auto]Media Manager ID - [id number] 14:59:00 Test Item Value Reference Range Interpretation Comments PARTIAL THROMBOPLASTIN TIME 85.2 seconds 22.5-36.0 H (BEAKER) (test code = 760) RAD, CHEST, 1 VIEW, NON [id number] 07:41:00Reason for exam:->feverShould this be performed at the bedside?->Yes [facility] 1960 Sex: FFINAL REPORT CLINICAL HISTORY: fever TECHNIQUE: 1 view of the chest. COMPARISON: 08/08/2020 IMPRESSION: There are no focal infiltrates or effusions. The cardiomediastinal silhouette is unchanged poststernotomy. Signed: Marie Lovell Verified Date/Time: 08/17/2020 07:41:21 Reading Location: [facility] Radiology Reading Room CBC (HEMOGRAM ONLY)2020-08-17 06:12:00 [...] 0-0 (BEAKER) (test code = 413) PROTHROMBIN TIME/[id number] 05:40:00 Test Item Value Reference Range Interpretation [...] wiht mechanical heart valves.While on warfarin.Comprehensive metabolic [id number] 00:20:00 Test Item Value Reference Range Interpretation Comments Protein, Total (test 6.4 See_Comment [Autom ated code = 2885-2) message] The system which generated this result transmit denny reference range : 6.0 - 8.3 gm/dL . The reference range was not u sed to interpret th is result as normal/abnormal . Albumin (test code = 3.2 g/dL 3.5-5 L 26487-9) Alkaline Phosphatase 58 U/L 40-150 (test code = 6768-6) Total Bilirubin (test 0.4 mg/dL 0.2-1.2 code = 1975-2) Sodium (test code = 138 meq/L 903-667 1551-2) Potassium (test code 3.9 meq/L 3.5-5.1 = 2823-3) Chloride (test code = 102 meq/L 98-107 2075-0) CO2 (test code = 26 meq/L 22-29 8-9) BUN (test code = 20 mg/dL 7-21 3094-0) Creatinine (test code 0.98 mg/dL 0.57-1.25 = 2160-0) Glucose (test code = 91 mg/dL 70-105 2345-7) Calcium (test code = 8.5 mg/dL 8.4-10.2 35491-2) AST (test code = 22 U/L 5-34 1920-8) ALT (test code = 10 U/L 6-55 1742-6) EGFR (test code = 58 mL/min/1.73 [place] [address]-2) NOT ACCURATE CREATININE CLEARANCE IN PREDICTING GLOMERULAR FILTRATION RATE . ESTIMATED GFR I S NOT APPLICABLE FOR DIALYSIS PATIEN TS. [place] (test code = [place]) Media Manager ID - PIAYA L Lab Interpretation Abnormal (test code = 70849-6) [facility] CenterCOMPREHENSIVE METABOLIC [id number] 00:20:00 Test Item Value Reference Range Interpretation [...] S NOT APPLICABLE FOR DIALYSIS PATIEN TS. Media Manager ID - PIAYA [id number] 00:02:00 Test Item Value Reference Range Interpretation Comments PARTIAL THROMBOPLASTIN TIME 93.3 seconds 22.5-36.0 H (BEAKER) (test code = 760) Lactic acid, [id number] 23:59:00 Test Item Value Reference Range Interpretation Comments Lactate, Venous (test code 1.55 mmol/L 0.5-2.2 = 2872) [place] (test code = [place]) Media Manager ID - DHIRAJ L Lab Interpretation (test Normal code = 69856-5) [facility] CenterLACTIC ACID, [id number] 23:59:00 Test Item Value Reference Range Interpretation Comments LACTATE BLOOD VENOUS (2) (BEAKER) 1.55 mmol/L 0.50-2.20 (test code = 2872) Media Manager ID - DHIRAJ LCBC with platelet count + automated [id number] 23:53:00 Test Item Value Reference Range Interpretation Comments WBC (test code = 6690-2) 5.6 See_Comment [A utomated message] The system WizIQ generated this result transmitted ref erence range: 3.5 - 10 .5 K/L. The refe rence range was not u sed to interpret this result as normal/abnor mal. RBC (test code = 789-8) 3.14 See_Comment L [Au tomated message] The system WizIQ generated this result transmitted ref erence range: 3.93 - 5 .22 M/L. The refe rence range was not u sed to interpret this result as normal/abnor mal. MCHC (test code = 786-4) 29.8 See_Comment L [A utomated message] The system WizIQ generated this result transmitted ref erence range: [...] See_Comment [Aut omated message] 777-3) The system WizIQ generated this result transmitted ref erence range: 150 - 45 0 K/CU MM. The referen ce range was not u sed to interpret this result as normal/abnor mal. MPV (test code = 10.3 fL 9.4-12.3 83275-7) nRBC (test code = 413) 0 See_Comment [Aut omated message] The system WizIQ generated this result transmitted ref erence range: [...] See_Comment [Aut omated message] 670) The system WizIQ generated this result transmitted ref erence range: 1.56 - 6 .13 K/L. The refe rence range was not u sed to interpret this result as normal/abnor mal. # Lymphs (test code = 0.49 See_Comment L [Auto mated message] 414) The system WizIQ generated this result transmitted ref erence range: 1.18 - 3 .74 K/L. The refe rence range was not u sed to interpret this result as normal/abnor mal. # Monos (test code = 0.35 See_Comment [Autom ated message] 415) The system WizIQ generated this result transmitted ref erence range: 0.24 - 0 .36 K/L. The refe rence range was not u sed to interpret this result as normal/abnor mal. # Eos (test code = 416) 0.00 See_Comment L [Au tomated message] The system WizIQ generated this result transmitted ref erence range: [...] 2801) Lab Interpretation (test Abnormal code = 85238-5) [facility] W/PLT COUNT & AUTO [id number] 23:53:00 Test Item Value Reference Range Interpretation [...] (test code = 2801) POC ACTIVATED CLOTTING [id number] 17:15:00 Test Item Value Reference Range Interpretation Comments Activated Clotting Time 241 sec : 74 -137 seconds, (test code = 441) Baseline: TESTED AT [address], [address]: Media Manager/Techni sandee ID = [id number] for DOMENIC TRACY RN [facility] CenterPOCT-[id number] 17:15:00 Test Item Value Reference Range Interpretation Comments ACTIVATED CLOTTING TIME 241 sec : 74 -137 seconds, (BEAKER) (test code = Baseli ne: TESTED AT 441) [facility] [address] [place] [address], [address]: Media Manager/Techni sandee ID = [id number] for DOMENIC TRACY RN [id number] 11:16:00 Test Item Value Reference Range Interpretation Comments PARTIAL THROMBOPLASTIN TIME 80.2 seconds 22.5-36.0 H (BEAKER) (test code = 760) While on warfarin.PROTHROMBIN TIME/[id number] 11:15:00 Test Item Value Reference Range Interpretation [...] mechanical heart valves.While on warfarin.Arterial doppler legs arhluuyag3408-62-68 07:44:53Ejection [facility] ECHO HEARTLAB MKCKESSON CPACSRight Impression1. The common [...] + + + + + + !Prox NETWORKS SOFTWARE CONSULTANT ! !0 ! ! ! !0 ! ! ! + + + + + + + + + + !Mid NETWORKS SOFTWARE CONSULTANT ! !0 ! ! ! !0 ! ! ! + + + + + + + + + + !Dist NETWORKS SOFTWARE CONSULTANT ! !0 ! ! ! !20 ! [...] of Study 08/15/2020 Age 60 Visit Number [id number] Gender Female Accession Number [id number] Date of 1960 Referring Lonnie Lim Room Number 1460 P hysician Lion Hunter Shilpa Acosta Interpreting Bijal Dhaliwal MD RVT [...] + + + + + + !Prox NETWORKS SOFTWARE CONSULTANT ! !0 ! ! ! !0 ! ! ! + + + + + + + + + + !Mid NETWORKS SOFTWARE CONSULTANT ! !0 ! ! ! !0 ! ! ! + + + + + + + + + + !Dist NETWORKS SOFTWARE CONSULTANT ! !0 ! ! ! !20 ! [...] + + + + + + +[facility], LUMBAR, WITHOUT [id number] 07:05:00Unlisted Reason for Exam - Click Yes and Enter Reason Below->No [facility] 1960 Sex: FFINAL [...] MDReport Verified Date/Time: 08/16/2020 07:05:14 Reading Location: [facility] C013V Neuro Reading Room MR spine lumbar without IV [id number] 07:05:00 Interface, External Ris In - 08/16/2020 [...] MDReport Verified Date/Time: 08/16/2020 07:05:14 Reading Location: [address] Neuro Reading [facility]APTT2021-[facility]-12 03:27:00 Test Item Value Reference [...] 0-0 (BEAKER) (test code = 413) SARS-COV2/RT-PCR ([facility])2020-08-15 20:12:00 Test Item Value Reference Range Interpretation Comments SARS-COV2/RT-PCR (test Negative Not Detected, Negative, code = 8862514) See external report for linked test SARS-COV-2 PERFORMING LAB [facility] (test code = 6943588) Negative result for this test determines that [...] 564(g) of the Act.Fact Sheet for Healthcare Providers:https://www.Primekss/sites/default/files/product/documents/Fact_Shee w_MW_Ksoceldtz_Ghqm_YWXS-JyO-7.pdfFact Sheet for Healthcare Patients:https://www.Primekss/sites/default/files/product/ documents/Nnsy_Zihob_Djihhscq_Xbdb_DWXR-UjK-0.pdfPerforming Laboratory:[facility] [place], [place] [address], [place] [id number] 15:32:00 Test Item Value Reference Range Interpretation [...] WBC 0-0 (BEAKER) (test code = 413) [id number] 06:27:00 Test Item Value Reference Range Interpretation Comments PARTIAL THROMBOPLASTIN TIME 95.5 seconds 22.5-36.0 H (BEAKER) (test code = 760) While on warfarin.PROTHROMBIN TIME/[id number] 06:25:00 Test Item Value Reference Range Interpretation [...] WBC 0-0 (BEAKER) (test code = 413) [id number] 20:44:00 Test Item Value Reference Range Interpretation [...] WBC 0-0 (BEAKER) (test code = 413) [id number] 19:10:00 Test Item Value Reference Range Interpretation Comments PARTIAL THROMBOPLASTIN TIME 135.1 seconds 22.5-36.0 H (BEAKER) (test code = 760) [id number] 11:18:00 Test Item Value Reference Range Interpretation Comments PARTIAL THROMBOPLASTIN TIME 101.6 seconds 22.5-36.0 H (DEDRA) (test code = 760) [id number] 09:37:00 Test Item Value Reference Range Interpretation Comments PARTIAL THROMBOPLASTIN TIME > seconds 22.5-36.0 HH (DEDRA) (test code = 760) CT, SPINE, LUMBAR, [id number] 08:35:00Unlisted Reason for Exam - Click Yes and Enter Reason Below->YesUnlisted Reason for Exam->LLE pain evalaute for radiculopathySHERMAN [facility]: [facility] : 1960 Sex: FFINAL [...] height loss is present, most conspicuous at L4-X0Juggkxctorp images of the spinal canal demonstrate no [...] MDReport Verified Date/Time: 08/14/2020 08:35:08 Reading Location: [address] Neuro Reading Room CT spine lumbar with IV [id number] 08:35:00Interface, External Ris In - 08/14/2020 8:37 [...] height loss is present, most conspicuous at L4-L1Cbipxycequh images of the spinal canal demonstrate no [...] MDReport Verified Date/Time: 08/14/2020 08:35:08 Reading Location: [facility] C0[facility] Neuro Reading Ro om [facility] CenterPROTHROMBIN TIME/[id number] 06:56:00 Test Item Value Reference Range Interpretation [...] WBC 0-0 (BEAKER) (test code = 413) [id number] 23:23:00 Test Item Value Reference Range Interpretation Comments PARTIAL THROMBOPLASTIN TIME 48.5 seconds 22.5-36.0 H (BEAKER) (test code = 760) BASIC METABOLIC [id number] 23:04:00 Test Item Value Reference Range Interpretation [...] S NOT APPLICABLE FOR DIALYSIS PATIEN TS. Media Manager ID - DBPOC-Glucose fkler5015-02-19 18:16:00 Test Item Value Reference Range Interpretation Comments POC-Glucose Meter (test 90 mg/dL 70-110 : TE STED AT [facility] code = 1538) [address] [facility], [address]: Media Manager/Techni sandee ID = [id number] for VANEGAS, GERI IA Lab Interpretation (test Normal code = 18156-8) [facility] CenterPOCT-GLUCOSE [id number] 18:16:00 Test Item Value Reference Range Interpretation Comments POC-GLUCOSE METER 90 mg/dL 70-110 : TESTED A T [facility] [address]20 (BEAKER) (test code = [facility], 1538) [address]: Media Manager/Techni sandee ID = [id number] for ARGU ETA, RAJENDRA POCT-GLUCOSE [id number] 12:53:00 Test Item Value Reference Range Interpretation Comments POC-GLUCOSE METER 129 mg/dL 70-110 H : TESTED A T [facility] 6720 (BEAKER) (test code = [facility], 1538) [address]: Media Manager/Techni sandee ID = [id number] for AR VICTORINAETA, RAJENDRA [id number] 12:31:00 Test Item Value Reference Range Interpretation Comments PARTIAL THROMBOPLASTIN TIME 59.7 seconds 22.5-36.0 H (BEAKER) (test code = 760) POCT-GLUCOSE [id number] 08:55:00 Test Item Value Reference Range Interpretation Comments POC-GLUCOSE METER 125 mg/dL 70-110 H : TESTED A T [facility] 6720 (BEAKER) (test code = [facility], 1538) [address]: Media Manager/Techni sandee ID = [id number] for RAJENDRA SPENCER [id number] 06:51:00 Test Item Value Reference Range Interpretation Comments PARTIAL THROMBOPLASTIN TIME 81.5 seconds 22.5-36.0 H (BEAKER) (test code = 760) While on warfarin.PROTHROMBIN TIME/[id number] 06:49:00 Test Item Value Reference Range Interpretation [...] 0-0 (BEAKER) (test code = 413) POCT-GLUCOSE [id number] 21:47:00 Test Item Value Reference Range Interpretation Comments POC-GLUCOSE METER 106 mg/dL 70-110 : TESTED A T [facility] [address] (BEAKER) (test code = CATHERINE Ricci HELLER MD, 1538) [address]: Media Manager/Techni sandee ID = [id number] for Shayy Schumacher [id number] 21:23:00 Test Item Value Reference Range Interpretation Comments PARTIAL THROMBOPLASTIN TIME 39.9 seconds 22.5-36.0 H (BEAKER) (test code = 760) [id number] 09:33:00 Test Item Value Reference Range Interpretation Comments PARTIAL THROMBOPLASTIN TIME 68.3 seconds 22.5-36.0 H (BEAKER) (test code = 760) PROTHROMBIN TIME/[id number] 06:46:00 Test Item Value Reference Range Interpretation [...] WBC 0-0 (BEAKER) (test code = 413) [id number] 00:29:00 Test Item Value Reference Range Interpretation [...] WBC 0-0 (BEAKER) (test code = 413) [id number] 16:03:00 Test Item Value Reference Range Interpretation Comments PARTIAL THROMBOPLASTIN TIME 33.6 seconds 22.5-36.0 (BEAKER) (test code = 760) Prior to initiating heparinPlatelet [id number] 15:55:00 Test Item Value Reference Range Interpretation Comments Platelets (test code = 518 See_Comment H [Aut omated message] 777-3) The system WizIQ generated this result transmitted ref erence range: 150 - 45 0 K/CU MM. The referen ce range was not u sed to interpret this result as normal/abnor mal. Lab Interpretation (test Abnormal code = 89656-8) [facility] (HEMOGRAM ONLY)2020-08-11 15:55:00 Test Item Value Reference [...] 0-0 (BEAKER) (test code = 413) PLATELET [id number] 15:55:00 Test Item Value Reference Range Interpretation Comments PLATELET COUNT (BEAKER) (test 518 K/CU MM 150-450 H code = 756) Hemoglobin and [id number] 09:12:00 Test Item Value Reference Range Interpretation [...] = 4544-3) [place] (test code = [place]) Media Manager ID - [id number] Lab Interpretation Abnormal (test code = 66006-5) [facility] [facility] CenterHEMOGLOBIN AND [id number] 09:12:00 Test Item Value Reference Range Interpretation Comments HEMOGLOBIN (BEAKER) (test code = 9.6 GM/DL 11.2-15.7 L 410) HEMATOCRIT (BEAKER) (test code = 31.3 % 34.1-44.9 L 411) Media Manager ID - 6000POCT-GLUCOSE [id number] 06:52:00 Test Item Value Reference Range Interpretation Comments POC-GLUCOSE METER 94 mg/dL 70-110 : TESTED A T [facility] 6720 (BEAKER) (test code = CATHERINE Ricci [facility], 1538) 31298: Media Manager/Techni sandee ID = [id number] for REBEKAH HIRSCHJOHN PROTHROMBIN TIME/[id number] 04:49:00 Test Item Value Reference Range Interpretation [...] wiht mechanical heart valves.While on warfarin.Prepare Leuko-Red [id number] 23:54:00 Test Item Value Reference Range Interpretation Comments CROSSMATCH (test code = 2264) COMPATIBLE Unit ABO (test code = A Pos 2365894) UNIT NUMBER (test code = [id number] 934-0) Status (test code = 8102744) TX_TIMEINCHART Blood Bank Product (test code RED BLOOD CELLS = 2263) PRODUCT CODE (test code = Q1956R16 933-2) [facility] CenterOccult blood, [id number] 20:26:00 Test Item Value Reference Range Interpretation Comments Occult blood (test code = 2335-8) Positive Negative A Lab Interpretation (test code = Abnormal 23299-5) [facility] CenterOCCULT BLOOD, [id number] 20:26:00 Test Item Value Reference Range Interpretation Comments FECAL OCCULT BLOOD (BEAKER) (test Positive Negative A code = 618) POCT-GLUCOSE [id number] 18:07:00 Test Item Value Reference Range Interpretation Comments POC-GLUCOSE METER 98 mg/dL 70-110 : TESTED A T [facility] 6720 (BEAKER) (test code = [facility], 1538) 62714: Media Manager/Techni sandee ID = [id number] for MARK CARO POCT-GLUCOSE [id number] 12:56:00 Test Item Value Reference Range Interpretation Comments POC-GLUCOSE METER 112 mg/dL 70-110 H : TESTED A T [facility] 6720 (BEAKER) (test code = [employer] [facility], 1538) 08909: Media Manager/Techni sandee ID = [id number] for MARK DEY JULIO's with PT and DP doppler wnrialeoho5729-24-91 12:53:58Ejection FractionSLE ECHO HEARTLAB MKCKESSON CPACSRight Impression1. [...] of Study 08/10/2020 Age 60 Visit Number [id number] Gender Female Accession Number [id number] Date of 1960 Referring [facility] Luiz Room Number 1460 Physician MD Carito Lion Hunter Gilda Bond RVT Interpreting Physician PENNY Dan [...] in cm/s ; Diameters are measured in [facility] POCT-GLUCOSE [id number] 09:51:00 Test Item Value Reference Range Interpretation Comments POC-GLUCOSE METER 97 mg/dL 70-110 : TESTED A T [facility] 6720 (BEAKER) (test code = DANIELACARTER Ricci [facility], 1538) 23199: Media Manager/Techni sandee ID = [id number] for MARK CARO BASIC METABOLIC [id number] 08:57:00 Test Item Value Reference Range Interpretation [...] S NOT APPLICABLE FOR DIALYSIS PATIEN TS. Media Manager ID - ADMINPROTHROMBIN TIME/[id number] 08:55:00 Test Item Value Reference Range Interpretation [...] mechanical heart valves.CBC W/PLT COUNT & AUTO [id number] 08:45:00 Test Item Value Reference Range Interpretation [...] PERCENT (BEAKER) (test code = 2801) POCT-GLUCOSE [id number] 07:00:00 Test Item Value Reference Range Interpretation Comments POC-GLUCOSE METER 82 mg/dL 70-110 : TESTED A T [facility] 6720 (BEAKER) (test code = CATHERINE HELLER MD, 1538) 40040: Media Manager/Techni sandee ID = [id number] for MUSE SOHEILA LÓPEZ 2D Echo W/Doppler(CW/PW/Color)2020-08-09 16:09:50Ejection FractionSLEH ECHO HEARTLAB MKCKESSON CPACSInterface, External Ris In - 08/09/2020 4:09 PM C STTransthoracic Echocardiography Report (TTE) Demographics Patient Name PRISCILLA WATTS Date of Study 08/09/2020 Gender Female Visit Number [id number] Race Room Number ED23 Number Date of 1960 Referring Physician SOHEILA INFANTE Age 60 year(s) Lion Hunter Lisa Perkins, [facility] Interpreting [...] LVOT CO: 6.75 l/min LVOT CI: 3.86 l/min/m^[facility]CM[facility] [id number] 13:30:00 Test Item Value Reference Range Interpretation Comments Troponin I (test code = <0.01 0-0.03 23801-2) [place] (test code = [place]) Troponin I [...] F Lab Interpretation (test Normal code = 74858-6) [facility] [id number] 13:30:00 Test Item Value Reference Range Interpretation [...] failure, acidosis, acute neurological disease, and persistent tachyarrhythmia.Media Manager ID - LIZZIE FPOCT-GLUCOSE [id number] 12:43:00 Test Item Value Reference Range Interpretation Comments POC-GLUCOSE METER 100 mg/dL 70-110 : TESTED A T [facility] 6720 (BEAKER) (test code = CATHERINE HELLER MD, 1538) 94449: Media Manager/Techni sandee ID = [id number] for Benito Contreras [id number] 07:10:00 Test Item Value Reference Range Interpretation Comments Ferritin (test code = 222.98 ng/mL 5-275 2276-4) [place] (test code = [place]) Media Manager ID - RISHI W Lab Interpretation (test Normal code = 22879-2) [facility] CenterFERRITIN2021-01-05 07:10:00 Test Item Value Reference Range Interpretation Comments FERRITIN (BEAKER) (test code = 222.98 ng/mL 5.00-275.00 361) Media Manager ID - RISHI CXnldkulawok1832-92-45 05:42:00 Test Item Value Reference Range Interpretation Comments Haptoglobin (test code = 91 mg/dL 14258 4542-7) [place] (test code = [place]) Media Manager ID Dannie RISHI W Lab Interpretation (test Normal code = 03186-2) [facility] CenterHAPTOGLOBIN2021-01-05 05:42:00 Test Item Value Reference Range Interpretation Comments HAPTOGLOBIN (BEAKER) (test code = 91 mg/dL 14-258 366) Media Manager ID Dannie BLACKWELL WSARS-CoV2/Influenza/RSV RT-PCR (Symptomatic ONLY)2020-08-09 05:13:00 Test Item Value Reference Range Interpretation Comments SARS-COV2/RT-PCR (test Negative Negative code = 90656-0) Influenza A RT-PCR Negative Negative (test code = 08352-3) Influenza B RT-PCR Negative Negative (test code = 69247-9) RSV by RT-PCR (test Negative Negative Performa nce of the code = 43255-7) Xpert Xpress SARS-CoV-2/Flu/ RSV test has only [...] Fact Sh eet for Healthcare Prov iders: https://www.[employer] /Documents/Xper t%20Xpre ss%76GGDC-WtQ-7 -Flu-RSV /302-4508%20Rev .%20B%20 HCP%20Fact%20Sh eet.pdf Fact Sheet for Healthcare Skylar ents: https://www.[employer] /Documents/Xper t%20Xpre ss%72ZLZX-XxD-0 -Flu-RSV /302-4507%20Rev .%20B%20 Patient%20Fact% 20Sheet. pdf Lab Interpretation Normal (test code = 78060-3) [facility] CenterARS[facility]OV[facility]/INFLUENZA/RSV [id number] 05:13:00 Test Item Value Reference Range Interpretation Comments SARS-COV2/RT-PCR Negative Negative (test code = 2929473) INFLUENZA A RT-PCR Negative Negative (test code = 0781479) INFLUENZA B RT-PCR Negative Negative (test code = 6922896) RSV RT-PCR (test Negative Negative Performanc e of the Xpert code = 6696265) Xpress SARS- CoV-2/Flu/RSV test has only b [...] sooner.Fact She et for Healthcare Prov iders: https://www.[employer].com/D ocuments/Xpert% 20Xpress%2 3YPDR-QfB-0-Flu -RSV/- 508%20Rev.%20B% 20HCP%20Fa ct%20Sheet.pdfF act Sheet for Healthcare Patients: https://www.[employer].com/D ocuments/Xpert% 20Xpress%2 3ETIJ-XcV-2-Flu -RSV/302- 507%20Rev.%20B% 20Patient% 20Fact%20Sheet. pdf Type and screen, automated ([facility] and [facility] only)2020-08-09 05:09:00 Test Item Value Reference Range Interpretation Comments ABO/RH AUTOMATED (BEAKER) (test A POSITIVE code = 2260) Ab Scrn (test code = 890-4) NEGATIVE [facility] CenterTROPONIN [id number] 04:58:00 Test Item Value Reference Range Interpretation [...] failure, acidosis, acute neurological disease, and persistent tachyarrhythmia.Media Manager ID - RISHI Camacho, TIBC, % sat. (without ferritin)2020-08-09 04:55:00 Test Item Value Reference Range Interpretation Comments Iron (test code = 2498-4) 31.0 ug/dL 40-160 L TIBC (test code = 2500-7) 338 ug/dL 250-450 Iron % Saturation (test 9 % 20-55 L code = 2502-3) [place] (test code = [place]) Media Manager ID - RISHI W Lab Interpretation (test Abnormal code = 34796-6) [facility] CenterIRON, TIBC, % SAT. (WITHOUT FERRITIN)2020-08-09 04:55:00 Test Item Value Reference Range Interpretation Comments IRON (BEAKER) (test code = 547) 31.0 ug/dL 40.0-160.0 L TOTAL IRON BINDING CAPACITY 338 ug/dL 250-450 (BEAKER) (test code = 769) IRON % SATURATION (2) (BEAKER) 9 % 20-55 L (test code = 2590) Media Manager ID - RISHI WHepatic function [id number] 04:53:00 Test Item Value Reference Range Interpretation Comments Protein, Total (test 6.9 See_Comment [Autom ated code = 2885-2) message] The system which generated this result transmit denny reference range : 6.0 - 8.3 gm/dL . The reference range was not u sed to interpret th is result as normal/abnormal . Albumin (test code = 3.4 g/dL 3.5-5 L 26598-2) Total Bilirubin (test 0.5 mg/dL 0.2-1.2 code = 1975-2) Bilirubin, Direct 0.2 mg/dL 0.1-0.5 (test code = 1968-7) Alkaline Phosphatase 67 U/L 40-150 (test code = 6768-6) AST (test code = 42 U/L 5-34 H 1920-8) ALT (test code = 19 U/L 6-55 1742-6) [place] (test code = [place]) Media Manager ID - RISHI Holder Lab Interpretation Abnormal (test code = 93903-7) [facility] METABOLIC [id number] 04:53:00 Test Item Value Reference Range Interpretation [...] S NOT APPLICABLE FOR DIALYSIS PATIEN TS. Media Manager ID Dannie BLACKWELL [facility] FUNCTION [id number] 04:53:00 Test Item Value Reference Range Interpretation [...] (test code = 19 U/L 6-55 347) Media Manager ROSARIO BLACKWELL WPROTHROMBIN TIME/[id number] 04:46:00 Test Item Value Reference Range Interpretation [...] INR is2.5-3.5 for patients wiht mechanical heart valves.PT/[id number] 04:45:00 Test Item Value Reference Interpretation Comments [...] (test code = 128.5 See_Comment H [Automated 30090-4) message] The system which generated this result [...] valves. Lab Interpretation Abnormal (test code = 72289-6) [facility] W/PLT COUNT & AUTO [id number] 04:45:00 Test Item Value Reference Range Interpretation [...] 0-1 PERCENT (BEAKER) (test code = 2801) PT/[id number] 04:45:00 Test Item Value Reference Range Interpretation [...] INR is2.5-3.5 for patients wiht mechanical heart valves.Q-psljp7748-94amyzd3990-88-21 04:40:00 Test Item Value Reference Range Interpretation Comments D-Dimer, Quant (test 1.74 See_Comment H [Autom ated code = 12019-0) message] The system which generated this result [...] range. Lab Interpretation Abnormal (test code = 81931-0) [facility] CenterD-[id number] 04:40:00 Test Item Value Reference Range Interpretation [...] slightly hemolyzed [place] (test code = [place]) Media Manager ID - RISHI W Lab Interpretation Abnormal (test code = 01783-3) [facility] CenterLACTATE DEHYDROGENASE (LDH)2020-08-09 04:34:00 Test Item Value Reference Range Interpretation Comments LACTATE DEHYDROGENASE 706 U/L 125-220 H Specim en slightly (BEAKER) (test code = hemoly zed 635) Media Manager ID Dannie BLACKWELL WRAD, CHEST, 1 VIEW, NON [id number] 23:34:00Reason for exam:->CHEST PAINShould this be performed at the bedside?->Yes [facility] : 1960 Sex: FFINAL [...] 08/08/2020 23:34:25 CBC W/PLT COUNT & AUTO [id number] 23:31:00 Test Item Value Reference Range Interpretation [...] Range Interpretation Comments BNP (test code = 23738-3) 235 pg/mL 0-100 H [place] (test code = [place]) Media Manager ID - DB Lab Interpretation (test Abnormal code = 46847-4) [facility] CenterB-TYPE NATRIURETIC FACTOR (BNP)2020-08-08 23:30:00 Test Item Value Reference Range Interpretation Comments B-TYPE NATRIURETIC PEPTIDE (BEAKER) 235 pg/mL 0-100 H (test code = 700) Media Manager ID - DBTROPONIN [id number] 23:29:00 Test Item Value Reference Range Interpretation [...] failure, acidosis, acute neurological disease, and persistent tachyarrhythmia.Media Manager ID - DBBASIC METABOLIC PANEL 2020-08-08 23:24:00 [...] S NOT APPLICABLE FOR DIALYSIS PATIEN TS. Media Manager ID - DBCRITICAL [id number] 23:01:51Patrick Segura MD 08/09/2020 5:33 AMCritical CarePerformed [...] of patient's condition and review of old charts.[facility] CenterEKG-DMGOKCN7842-49-81 00:00:00 Ordered by an unspecified provider.[facility] CenterPROTHROMBIN TIME/[id number] 06:03:00 Test Item Value Reference Range Interpretation [...] valves.While on warfarin.CBC W/PLT COUNT & AUTO [id number] 06:20:00 Test Item Value Reference Range Interpretation [...] PERCENT (BEAKER) (test code = 2801) PROTHROMBIN TIME/[id number] 06:35:00 Test Item Value Reference Range Interpretation [...] for patients wiht mechanical heart valves.OCCULT BLOOD, [id number] 23:23:00 Test Item Value Reference Range Interpretation Comments FECAL OCCULT BLOOD (BEAKER) (test Negative Negative code = 618) PROTHROMBIN TIME/[id number] 07:00:00 Test Item Value Reference Range Interpretation [...] mechanical heart valves.CBC W/PLT COUNT & AUTO [id number] 06:52:00 Test Item Value Reference Range Interpretation [...] code = 2801) MYOCARD IMAGING, MULTI, PHARM, [id number] 16:05:00FINAL REPORT PROCEDURE: MYOCARDIAL PERFUSION SPECT IMAGING (Rest/Stress)CPT CODE: 04664 INDICATION: Elevated troponin CARDIOVASCULAR PROFILE:CAD History: NoneSymptoms: [...] MDReport Verified Date/Time: 01/12/2019 16:05:30 Reading Location: [address] Reading Room [id number] 08:57:00 Test Item Value Reference Range Interpretation Comments THYROID STIMULATING HORMONE 1.50 uIU/mL 0.35-4.94 (BEAKER) (test code = 772) [id number] 08:56:00 Test Item Value Reference Range Interpretation Comments T4 TOTAL (BEAKER) (test code = 895) 7.9 ug/dL 4.9-11.7 PROTHROMBIN TIME/[id number] 03:12:00 Test Item Value Reference Range Interpretation [...] (BEAKER) (test code = 413) BASIC METABOLIC [id number] 14:05:00 Test Item Value Reference Range Interpretation [...] NOT APPLICABLE FOR DIALYSIS PATIEN TS. TROPONIN [id number] 09:07:00 Test Item Value Reference Range Interpretation [...] acidosis, acute neurological disease, and persistent tachyarrhythmia.TROPONIN [id number] 06:51:00 Test Item Value Reference Range Interpretation [...] acute neurological disease, and persistent tachyarrhythmia.BASIC METABOLIC [id number] 06:51:00 Test Item Value Reference Range Interpretation [...] S NOT APPLICABLE FOR DIALYSIS PATIEN TS. [id number] 06:44:00 Test Item Value Reference Range Interpretation Comments MAGNESIUM (BEAKER) (test code = 1.8 mg/dL 1.6-2.6 627) PT/[id number] 04:26:00 Test Item Value Reference Range Interpretation [...] heparin sliding scalePer heparin sliding scaleHEMOGLOBIN AND [id number] 04:15:00 Test Item Value Reference Range Interpretation Comments HEMOGLOBIN (BEAKER) (test code = 9.5 GM/DL 11.2-15.7 L 410) HEMATOCRIT (BEAKER) (test code = 30.2 % 34.1-44.9 L 411) TROPONIN [id number] 22:28:00 Test Item Value Reference Range Interpretation [...] failure, acidosis, acute neurological disease, and persistent tachyarrhythmia.PT/[id number] 22:15:00 Test Item Value Reference Range Interpretation [...] scalePer heparin sliding scaleRAD, ABDOMEN/KUB, 1 VIEW [id number] 18:44:00Reason for exam:->vomitingFINAL REPORT Abdomen dated January [...] MDReport Verified Date/Time: 01/10/2019 18:44:41 Reading Location: [facility] B1 C013Y CT Body Reading Room [id number] 14:44:00 Test Item Value Reference Range Interpretation Comments MAGNESIUM (BEAKER) (test code = 1.6 mg/dL 1.6-2.6 627) BASIC METABOLIC [id number] 14:44:00 Test Item Value Reference Range Interpretation [...] NOT APPLICABLE FOR DIALYSIS PATIEN TS. TROPONIN [id number] 14:44:00 Test Item Value Reference Range Interpretation [...] H PERCENT (BEAKER) (test code = 2801) [id number] 13:25:00 Test Item Value Reference Range Interpretation Comments AMYLASE (BEAKER) (test code = 349) 29 U/L 25-125 [id number] 13:25:00 Test Item Value Reference Range Interpretation Comments LIPASE (BEAKER) (test code = 749) 16 U/L 8-78 [id number] 13:24:00 Test Item Value Reference Range Interpretation Comments PARTIAL THROMBOPLASTIN TIME 41.1 seconds 22.5-36.0 H (BEAKER) (test code = 760) 6 hours after starting heparin infusion and as indicated per sliding scale HEMOGLOBIN AND [id number] 13:10:00 Test Item Value Reference Range Interpretation Comments HEMOGLOBIN (BEAKER) (test code = 9.3 GM/DL 11.2-15.7 L 410) HEMATOCRIT (BEAKER) (test code = 30.0 % 34.1-44.9 L 411) U/S, ABDOMINAL, [id number] 12:16:00Abdomen limited area? Add comment if clarification [...] MDReport Verified Date/Time: 01/10/2019 12:16:23 Reading Location: [facility] B1 C013X Ortho Consult Reading Room PT/[id number] 20:52:00 Test Item Value Reference Range Interpretation [...] for patients wiht mechanical heart valves.HEMOGLOBIN AND [id number] 16:23:00 Test Item Value Reference Range Interpretation Comments HEMOGLOBIN (BEAKER) (test code = 9.4 GM/DL 11.2-15.7 L 410) HEMATOCRIT (BEAKER) (test code = 29.9 % 34.1-44.9 L 411) PT/[id number] 07:42:00 Test Item Value Reference Range Interpretation [...] INR is2.5-3.5 for patients wiht mechanical heart valves.[id number] 03:41:00 Test Item Value Reference Range Interpretation Comments MAGNESIUM (BEAKER) (test code = 1.7 mg/dL 1.6-2.6 627) BASIC METABOLIC [id number] 03:41:00 Test Item Value Reference Range Interpretation [...] NOT APPLICABLE FOR DIALYSIS PATIEN TS. PROTHROMBIN TIME/[id number] 03:35:00 Test Item Value Reference Range Interpretation [...] for patients wiht mechanical heart valves.HEMOGLOBIN AND [id number] 03:21:00 Test Item Value Reference Range Interpretation Comments HEMOGLOBIN (BEAKER) (test code = 8.8 GM/DL 11.2-15.7 L 410) HEMATOCRIT (BEAKER) (test code = 27.9 % 34.1-44.9 L 411) PT/[id number] 23:57:00 Test Item Value Reference Range Interpretation [...] INR is2.5-3.5 for patients wiht mechanical heart valves.PT/[id number] 22:20:00 Test Item Value Reference Range Interpretation [...] is on agartrobanPatient is on agartrobanHEMOGLOBIN AND [id number] 22:08:00 Test Item Value Reference Range Interpretation Comments HEMOGLOBIN (BEAKER) (test code = 9.6 GM/DL 11.2-15.7 L 410) HEMATOCRIT (BEAKER) (test code = 30.5 % 34.1-44.9 L 411) HEMOGLOBIN AND [id number] 16:25:00 Test Item Value Reference Range Interpretation [...] WBC 0-0 (BEAKER) (test code = 413) [id number] 15:07:00 Test Item Value Reference Range Interpretation Comments PARTIAL THROMBOPLASTIN TIME 59.8 seconds 22.5-36.0 H (BEAKER) (test code = 760) PROTHROMBIN TIME/[id number] 14:32:00 Test Item Value Reference Range Interpretation [...] pg/mL 0-100 H (test code = 700) [id number] 12:34:00 Test Item Value Reference Range Interpretation Comments POTASSIUM (BEAKER) (test code = 3.9 meq/L 3.5-5.1 379) [id number] 12:34:00 Test Item Value Reference Range Interpretation Comments MAGNESIUM (BEAKER) (test code = 2.0 mg/dL 1.6-2.6 627) [id number] 11:33:00 Test Item Value Reference Range Interpretation Comments PROCALCITONIN (BEAKER) (test code 0.05 ng/mL <0.05 H = 3036) SEPSIS RISK (ng/mL)Low: 0.05-0.50Intermediate: 0.51-2.00High: >=2.01LACTIC ACID, [id number] 10:31:00 Test Item Value Reference Range Interpretation Comments LACTATE BLOOD VENOUS (2) (BEAKER) 0.7 mmol/L 0.5-2.2 (test code = 2872) HEMOGLOBIN AND [id number] 10:10:00 Test Item Value Reference Range Interpretation Comments HEMOGLOBIN (BEAKER) (test code = 8.3 GM/DL 11.2-15.7 L 410) HEMATOCRIT (BEAKER) (test code = 26.2 % 34.1-44.9 L 411) BASIC METABOLIC [id number] 08:27:00 Test Item Value Reference Range Interpretation [...] PATIEN TS. RAD, CHEST, 1 VIEW, NON [id number] 08:17:00Reason for exam:->pulmonary edemaShould this be performed [...] [place] Verified Date/Time: 01/08/2019 08:17:31 Reading Location: [facility] Radiology Reading Room [id number] 08:12:00 Test Item Value Reference Range Interpretation Comments MAGNESIUM (BEAKER) (test code = 2.0 mg/dL 1.6-2.6 627) [id number] 07:14:00 Test Item Value Reference Range Interpretation [...] L (test code = 2590) HEMOGLOBIN AND [id number] 06:25:00 Test Item Value Reference Range Interpretation [...] = 1414) RAD, CHEST, 1 VIEW, NON [id number] 23:31:00Reason for exam:- >DyspneaShould this be performed [...] MDReport Verified Date/Time: 01/07/2019 23:31:03 Reading Location: [address] Reading Room COMPREHENSIVE METABOLIC PANEL 2019-01-07 [...] S NOT APPLICABLE FOR DIALYSIS PATIEN TS. [id number] 22:51:00 Test Item Value Reference Range Interpretation Comments MAGNESIUM (BEAKER) (test code = 1.3 mg/dL 1.6-2.6 L 627) [id number] 22:45:00 Test Item Value Reference Range Interpretation Comments FIBRINOGEN LEVEL (BEAKER) (test 509 mg/dl 225-434 H code = 658) PROTHROMBIN TIME/[id number] 22:09:00 Test Item Value Reference Range Interpretation [...] mechanical heart valves.CBC W/PLT COUNT & AUTO [id number] 22:05:00 Test Item Value Reference Range Interpretation [...] % 0-1 PERCENT (BEAKER) (test code = 9632)
--- NOTE | 2020-10-31 20:56 | RAD REPORT ---
EXAM DESCRIPTION: CT - CTHCSPWOC - 10/31/2020 8:30 pm CLINICAL HISTORY: Trauma, head and neck injury. fall COMPARISON: No comparisons TECHNIQUE: Axial 5 mm thick images of the head were obtained. Axial 2 mm thick images of the cervical spine were obtained with sagittal and coronal reconstruction images generated and reviewed. All CT scans are performed using dose optimization technique as appropriate and may include automated exposure control or mA/KV adjustment according to patient size. FINDINGS: CT HEAD WITHOUT CONTRAST: No acute hemorrhage, hydrocephalus or extra-axial collection is identified.No areas of brain edema or midline shift. The paranasal sinuses and mastoids are clear.The calvarium is intact. CT CERVICAL SPINE WITHOUT CONTRAST: No fracture or subluxation.No prevertebral soft tissues swelling is identified. IMPRESSION: No acute intracranial or cervical spine findings.
[2020-10-31 21:33] LABS: Urine Blood TRACE (Negative); Urine Glucose NEGATIVE (Negative); Urine Protein NEGATIVE (NEG); Urine Specific Gravity 1.015 (1.005-1.030); Urine Specific Gravity/Preg 1.015 (1.005-1.030); Urine pH 5.5 (5.0-7.0)
[2020-10-31 21:33] LABS: Absolute Lymphocytes (CBC) 0.9 K/uL (0.7-4.9); Basophils % 0.2 % (0-1.3); Hematocrit 34.2 % (36.0-45.0); Lymphocytes % 8.6 % (15.3-44.8); MPV 8.3 fL (7.6-11.3); RBC Red Blood Cell Count 4.16 M/uL (3.86-4.86)
[2020-10-31 21:35] LABS: Barbiturates NEGATIVE (NEGATIVE); Benzodiazepines POSITIVE (NEGATIVE); Cocaine NEGATIVE (NEGATIVE); METHAMPHETAM NEGATIVE (NEGATIVE); Methadone NEGATIVE (NEGATIVE); Opiates POSITIVE (NEGATIVE); Phencyclidine NEGATIVE (NEGATIVE); THC Cannibis NEGATIVE (NEGATIVE)
[2020-10-31 22:14] LABS: ALT/SGPT 26 U/L (12-78); AST/SGOT 56 U/L (15-37); Albumin 3.3 g/dL (3.4-5.0); Alkaline Phosphatase 89 U/L (45-117); BUN Blood Urea Nitrogen 11 mg/dL (7-18); Bicarbonate 31 mmol/L (21-32); Bilirubin Direct < 0.1 mg/dL (0-0.2); Bilirubin Total 0.3 mg/dL (0.2-1.0); CKMB Creatine Kinase MB 27.3 ng/mL (0.3-3.6); Glucose Level 103 mg/dL (74-106); Lipase 69 U/L (73-393); Magnesium 1.9 mg/dL (1.8-2.4); Potassium 4.4 mmol/L (3.5-5.1); Protein, Total 8.3 g/dL (6.4-8.2); Sodium Level 136 mmol/L (136-145); Troponin (Emerg Dept Use Only) < 0.02 ng/mL (0.0-0.045)
[2020-10-31 22:16] LABS: Creatine Phosphokinase 1129 U/L (26-192)
[2020-10-31] MEDS ORDERED: LORazepam 2 MG/ML VIAL ONE (22:50)
[2020-10-31 23:23] LABS: Blood Morphology Comment NOT SEEN (NOT SEEN); Platelet Estimate ADEQ
--- NOTE | 2020-10-31 23:42 | ER ---
Nurse's Notes [facility] Name: Kim Aldana Age: 60 yrs Sex: Female : 1960 Arrival Date: 10/31/2020 Time: 20:08 Bed 3 Private MD: Kayce Cheek H Diagnosis: Altered mental status, unspecified;Fall on same level, unspecified Presentation: 10/31 20:19 Chief complaint: EMS states: pt reports having been on the ground for 2 hours, denies sg fall. States having pain and feeling confused, states she believes having a UTI is what the problem is this evening. Coronavirus screen: Client denies travel out of the [place] in the last 14 days. Ebola Screen: Patient negative for fever greater than or equal to 101.5 degrees Fahrenheit, and additional compatible Ebola Virus Disease symptoms Patient denies exposure to infectious person. Patient denies travel to an Ebola-affected area in the 21 days before illness onset. No symptoms or risks identified at this time. Risk Assessment: Do you want to hurt yourself or someone else? Patient reports no desire to harm self or others. Onset of symptoms was October 31, 2020. Care prior to arrival: None. Mechanism of Injury: No Mechanism of Injury. Transition of care: patient was not received from another setting of care. 20:19 Method Of Arrival: EMS: [facility] sg 20:19 Acuity: CABRERA 3 sg 20:25 Initial Sepsis Screen: Does the patient meet any 2 criteria? No. Patient's initial ea sepsis screen is negative. Does the patient have a suspected source of infection? No. Patient's initial sepsis screen is negative. Historical: - Allergies: 20:24 Aspirin; sg 20:24 Compazine; sg 20:24 Methadone; sg 20:24 Morphine; sg 20:24 Neurontin; sg 20:24 PENICILLINS; sg 20:24 Phenergan; sg 20:24 plastic tape; sg 20:24 Suboxone; sg - PMHx: 20:24 arterial insuficiency; Back pain; cerebritis; dejenteritive joint disease; chest pain; sg Chronic pain; Dyspepsia; esophageal reflux; fatigue; hypersomnia; lumbar radiculitis; Lupus; menopause; osteomyelitis; Panic Attacks; pulmonary edema; Seizures; Tachycardia; TIA; venous insufficiency; - Immunization history:: Adult Immunizations up to date. - Social history:: Smoking status: Patient denies any tobacco usage or history of. Screenin:24 Abuse screen: Denies threats or abuse. Nutritional screening: No deficits noted. ea Tuberculosis screening: No symptoms or risk factors identified. Fall Risk None identified. Assessment: 20:25 General: Appears in no apparent distress. Behavior is calm, cooperative, appropriate ea for age. Pain: Complains of pain in right leg. Neuro: Level of Consciousness is awake, alert, obeys commands, Oriented to person, place, time. Respiratory: Airway is patent Respiratory effort is even, unlabored, Respiratory pattern is regular, symmetrical. Derm: Skin is pink, warm \T\ dry. 21:56 Reassessment: Patient and/or family updated on plan of care and expected duration. Pain ea level reassessed. Patient is alert, oriented x 3, equal unlabored respirations, skin warm/dry/pink. 11/01 01:10 Reassessment: Patient appears in no apparent distress at this time. hospitalist at rr5 bedside. 01:53 Reassessment: Patient and/or family updated on plan of care and expected duration. Pain ea level reassessed. Pt resting with eyes closed, respirations even and unlabored, chest expansions even and symmetrical. No s/s of pain or discomfort noted at this time. Vital Signs: 10/31 20:25 BP 136 / 59; Pulse 80; Resp 18; Temp 98.8; Pulse Ox 97% on R/A; ea 21:57 BP 147 / 90; Pulse 83; Resp 18; Pulse Ox 97% ; ea 22:53 BP 128 / 54; Pulse 80; Resp 18; Pulse Ox 95% ; ea 23:55 BP 120 / 58; Pulse 86; Resp 19; Pulse Ox 92% on R/A; ea 11/01 01:55 BP 130 / 60; Pulse 88; Resp 19; Temp 98.2; Pulse Ox 99% ; ea Laina Coma Score: 10/31 20:21 Eye Response: spontaneous(4). Verbal Response: oriented(5). Motor Response: obeys tw4 commands(6). Total: 15. ED Course: 20:08 Patient arrived in ED. sg 20:09 Dennis Fagan MD is Attending Physician. tw4 20:20 Triage completed. sg 20:24 Patient has correct armband on for positive identification. Bed in low position. Call ea light in reach. Side rails up X2. groundwater monitoring technician on. Pulse ox on. NIBP on. 20:24 Arm band placed on right wrist. Patient placed in an exam room, on a stretcher, on ea court monitor, on pulse oximetry. 20:25 Kayce Cheek DO is Private Physician. sg 20:30 CT Head C Spine In Process Unspecified. EDMS 20:30 Kylee Olguin, RN is Primary Nurse. ea 21:18 Inserted saline lock: 22 gauge in right forearm, using aseptic technique. Blood ea collected. 22:13 XRAY Hip LEFT 2 view In Process Unspecified. EDMS 23:00 Hip Right 2 View In Process Unspecified. EDMS 23:41 Artemio Casey MD is Hospitalizing Provider. tw4 23:53 No provider procedures requiring assistance completed. Patient admitted, IV remains in ea place. Administered Medications: 22:38 Drug: Ativan 1 mg Route: IVP; Site: right forearm; ea 11/01 01:54 Follow up: Response: No adverse reaction ea 01:22 Drug: NS 0.9% 1000 ml Route: IV; Rate: 1000 ml; Site: right forearm; rr5 01:54 Follow up: Response: No adverse reaction; IV Status: Completed infusion; IV Intake: ea 1000ml 02:03 Drug: NS 0.9% 1000 ml Route: IV; Rate: 125 ml/hr; Site: right forearm; ea 02:04 Follow up: IV Status: Infusion continued upon admission ea Intake: 01:54 IV: 1000ml; Total: 1000ml. ea Outcome: 10/31 23:42 Decision to Hospitalize by Provider. tw4 23:54 Instructed on the need for admit, Demonstrated understanding of instructions. ea 11/01 01:53 Admitted to Med/surg accompanied by tech, via stretcher, with chart, Report called to ea Receiving nurse on second floor Condition: stable 02:07 Patient left the ED. ea Signatures: Dispatcher [employer] EDYossi Maier RN RN Kylee Olguin RN Dennis Hutchinson ea, MD MD tw4 Artemio Ramos RN RN rr5
--- NOTE | 2020-10-31 23:42 | EDPHYS ---
Physician Documentation [facility] Name: Kim Aldana Age: 60 yrs Sex: Female : 1960 Arrival Date: 10/31/2020 Time: 20:08 Bed 3 Private MD: Kayce Cheek H ED Physician Dennis Fagan HPI: 10/31 20:12 This 60 yrs old Female presents to ER via Unassigned with complaints of fall tw4 AMS. 20:12 The patient presents with decreased mental status, decreased responsiveness. Onset: The tw4 symptoms/episode began/occurred just prior to arrival, today. Possible causes: unknown. Associated signs and symptoms: The patient has no apparent associated signs or symptoms. Current symptoms: In the emergency department the patient's symptoms are unchanged from the initial presentation. Patient's baseline: Neuro: alert and fully oriented, Motor: no deficits, Ambulation: walks without assistance. The patient has not experienced similar symptoms in the past. Historical: - Allergies: 20:24 Aspirin; sg 20:24 Compazine; sg 20:24 Methadone; sg 20:24 Morphine; sg 20:24 Neurontin; sg 20:24 PENICILLINS; sg 20:24 Phenergan; sg 20:24 plastic tape; sg 20:24 Suboxone; sg - PMHx: 20:24 arterial insuficiency; Back pain; cerebritis; dejenteritive joint disease; chest pain; sg Chronic pain; Dyspepsia; esophageal reflux; fatigue; hypersomnia; lumbar radiculitis; Lupus; menopause; osteomyelitis; Panic Attacks; pulmonary edema; Seizures; Tachycardia; TIA; venous insufficiency; - Immunization history:: Adult Immunizations up to date. - Social history:: Smoking status: Patient denies any tobacco usage or history of. ROS: 20:12 Constitutional: Negative for fever, chills, and weight loss, Cardiovascular: Negative tw4 for chest pain, palpitations, and edema, Respiratory: Negative for shortness of breath, cough, wheezing, and pleuritic chest pain, Abdomen/GI: Negative for abdominal pain, nausea, vomiting, diarrhea, and constipation, Back: Negative for injury and pain, MS/Extremity: Negative for injury and deformity, Skin: Negative for injury, rash, and discoloration. 20:12 Neuro: Positive for altered mental status, Negative for dizziness, gait disturbance, headache, hearing loss, loss of consciousness, numbness, seizure activity, speech changes, syncope, near syncope, tingling, tinnitus, tremor. Exam: 20:20 Constitutional: This is a well developed, well nourished patient who is awake, alert, tw4 and in no acute distress. Head/Face: Normocephalic, atraumatic. Chest/axilla: Normal chest wall appearance and motion. Nontender with no deformity. No lesions are appreciated. Cardiovascular: Regular rate and rhythm with a normal S1 and S2. No gallops, murmurs, or rubs. Normal PMI, no JVD. No pulse deficits. Respiratory: Lungs have equal breath sounds bilaterally, clear to auscultation and percussion. No rales, rhonchi or wheezes noted. No increased work of breathing, no retractions or nasal flaring. Abdomen/GI: Soft, non-tender, with normal bowel sounds. No distension or tympany. No guarding or rebound. No evidence of tenderness throughout. Back: No spinal tenderness. No costovertebral tenderness. Full range of motion. 20:21 Neuro: Orientation: is normal, Mentation: slow to respond, confused. tw4 Vital Signs: 20:25 BP 136 / 59; Pulse 80; Resp 18; Temp 98.8; Pulse Ox 97% on R/A; ea 21:57 BP 147 / 90; Pulse 83; Resp 18; Pulse Ox 97% ; ea 22:53 BP 128 / 54; Pulse 80; Resp 18; Pulse Ox 95% ; ea 23:55 BP 120 / 58; Pulse 86; Resp 19; Pulse Ox 92% on R/A; ea 11/01 01:55 BP 130 / 60; Pulse 88; Resp 19; Temp 98.2; Pulse Ox 99% ; ea Laina Coma Score: 10/31 20:21 Eye Response: spontaneous(4). Verbal Response: oriented(5). Motor Response: obeys tw4 commands(6). Total: 15. MDM: 20:09 Patient medically screened. tw4 11/01 03:39 Differential Diagnosis: electrolyte abnormality, hypoglycemia, meningitis. Data tw4 reviewed: vital signs, nurses notes. Data interpreted: Pulse oximetry: Interpretation: normal. 10/31 20:11 Order name: AMBER 10/31 20:11 Order name: Basic Metabolic Panel 10/31 20:11 Order name: CBC with Diff 10/31 20:11 Order name: Ckmb; Complete Time: 22:39 10/31 20:11 Order name: CPK; Complete Time: 22:39 10/31 20:11 Order name: Hepatic Function; Complete Time: 22:39 10/31 20:11 Order name: Lipase; Complete Time: 22:39 10/31 20:11 Order name: Magnesium; Complete Time: 22:39 10/31 20:11 Order name: Protime (+inr); Complete Time: 21:57 10/31 20:11 Order name: Ptt, Activated; Complete Time: 21:57 10/31 20:11 Order name: Troponin (emerg Dept Use Only); Complete Time: 22:39 10/31 20:13 Order name: Urine Drug Screen; Complete Time: 21:53 EDNV 10/31 20:13 Order name: Basic Metabolic Panel; Complete Time: 22:39 EDNV 10/31 20:13 Order name: CBC with Automated Diff; Complete Time: 23:39 EDMS 10/31 21:28 Order name: Urine Dipstick--Ancillary (enter results); Complete Time: 21:53 tt3 10/31 23:39 Interpretation: Normal except: UBLD TRACE. 10/31 21:28 Order name: Urine --Ancillary (enter results); Complete Time: 21:57 tt3 10/31 22:11 Order name: Manual Differential; Complete Time: 23:37 EDMS 10/31 23:55 Order name: COVID-19 : Document "Date of Symptom Onset" if Symptomatic. ea 11/01 01:08 Order name: SARS-COV-2 RT PCR EDMS 11/01 01:28 Order name: CBC with Automated Diff EDMS 11/01 01:28 Order name: C-Reactive Protein EDMS 11/01 01:28 Order name: C-Reactive Protein EDMS 11/01 01:28 Order name: Blood Culture EDNV 11/01 01:28 Order name: Urinalysis EDNV 11/01 01:28 Order name: CKMB Creatine Kinase MB EDNV 11/01 01:28 Order name: CKMB Creatine Kinase MB EDMS 11/01 01:28 Order name: CKMB Creatine Kinase MB EDMS 11/01 01:28 Order name: CKMB Creatine Kinase MB EDMS 10/31 20:11 Order name: CT Head C Spine; Complete Time: 21:18 tw4 10/31 22:05 Order name: XRAY Hip LEFT 2 view ea 11/01 01:28 Order name: CKMB Creatine Kinase MB EDMS 11/01 01:28 Order name: Comprehensive Metabolic Panel EDMS 11/01 01:28 Order name: Comprehensive Metabolic Panel EDMS 11/01 01:28 Order name: Comprehensive Metabolic Panel EDMS 11/01 01:29 Order name: Creatine Phosphokinase EDMS 11/01 01:29 Order name: Creatine Phosphokinase EDMS 11/01 01:29 Order name: Creatine Phosphokinase EDMS 11/01 01:29 Order name: Creatine Phosphokinase EDMS 11/01 01:29 Order name: Creatine Phosphokinase EDMS 11/01 01:29 Order name: Magnesium EDMS 11/01 01:29 Order name: Magnesium EDMS 11/01 01:29 Order name: Magnesium EDMS 11/01 01:29 Order name: Procalcitonin EDMS 11/01 01:29 Order name: Procalcitonin EDMS 11/01 01:29 Order name: CBC with Automated Diff EDMS 11/01 01:29 Order name: CBC with Automated Diff EDMS 11/01 01:29 Order name: T4 Free EDMS 11/01 01:29 Order name: T4 Free EDMS 11/01 01:29 Order name: Thyroid Stimulating Hormone EDMS 11/01 01:29 Order name: Thyroid Stimulating Hormone EDMS 11/01 01:29 Order name: Sedimentation Rate, [place] EDMS 11/01 01:29 Order name: Sedimentation Rate, [place] EDMS 11/01 01:29 Order name: Protime (+INR) EDMS 11/01 01:29 Order name: Protime (+INR) EDMS 11/01 01:29 Order name: Protime (+INR) EDMS 11/01 01:29 Order name: Protime (+INR) EDMS 11/01 01:29 Order name: Protime (+INR) EDMS 10/31 20:11 Order name: EKG; Complete Time: 20:13 tw4 10/31 20:11 Order name: Cardiac monitoring; Complete Time: 21:20 tw4 10/31 20:11 Order name: EKG - Nurse/Tech; Complete Time: 21:20 tw4 10/31 20:11 Order name: IV Saline Lock; Complete Time: 21:20 tw4 10/31 20:11 Order name: Labs collected and sent; Complete Time: 21:20 tw4 10/31 20:11 Order name: NPO; Complete Time: 21:20 tw4 10/31 20:11 Order name: O2 Per Protocol; Complete Time: 21:20 tw4 10/31 20:11 Order name: O2 Sat Monitoring; Complete Time: 21:20 tw4 10/31 20:11 Order name: Urine Dipstick-Ancillary (obtain specimen); Complete Time: 21:20 tw4 10/31 22:43 Order name: Hip Right 2 View EDNV 11/01 01:28 Order name: CONS Physician Consult EDNV 11/01 01:28 Order name: Regular [facility] 11/01 01:28 Order name: Stroke Protocol [facility] 11/01 01:40 Order name: Foot Right 3 View [facility] 11/01 01:49 Order name: Physical Therapy Consult [facility] EC:28 Rate is 81 beats/min. Rhythm is regular, Sinus arrythmia. QRS [place] is Normal. AR tw4 interval is normal. QRS interval is normal. QT interval is normal. No Q waves. T waves are Normal. No ST changes noted. Clinical impression: Normal ECG. Interpreted by me. Reviewed by me. Administered Medications: 10/31 22:38 Drug: Ativan 1 mg Route: IVP; Site: right forearm; ea 11/01 01:54 Follow up: Response: No adverse reaction ea 01:22 Drug: NS 0.9% 1000 ml Route: IV; Rate: 1000 ml; Site: right forearm; rr5 01:54 Follow up: Response: No adverse reaction; IV Status: Completed infusion; IV Intake: ea 1000ml 02:03 Drug: NS 0.9% 1000 ml Route: IV; Rate: 125 ml/hr; Site: right forearm; ea 02:04 Follow up: IV Status: Infusion continued upon admission ea Disposition: 10/31/20 23:42 Hospitalization ordered by Artemio Casey for Inpatient Admission. Preliminary diagnosis are Altered mental status, unspecified, Fall on same level, unspecified. - Bed requested for Telemetry/MedSurg (Inpatient). - Status is Inpatient Admission. ea - Condition is Stable. - Problem is new. - Symptoms have improved. Signatures: Dispatcher [employer] EDNV Samantha Laws RN RN mw Gay, Steven RN RN sg Sharath Walker, MICA PATCHER-C MICA PATCHER-Cla1 Kylee Olguin RN RN ea Wadley, Terrence, MD MD tw4 Artemio Ramos RN RN rr5 Corrections: (The following items were deleted from the chart) 10/31 20: 21:25 Accucheck ordered. : 21:25 Stroke Swallow Screen ordered. : 21:25 CT-STROKE BRAIN W/O CONTRAST+CT.RAD.BRZ ordered. [facility] :27 21:25 Chest Single View+RAD.RAD.BRZ ordered. [facility] 22:07 21:25 BASIC METABOLIC PANEL+C.LAB.BRZ ordered. [facility] 22:15 21:59 Hip Right 2 View+RAD.RAD.BRZ ordered. [facility] 11/01 00:08 10/31 23:55 CORONAVIRUS ordered. [facility] 11/01 01:26 10/31 23:42 Hospitalization Ordered by Artemio Casey MD for Inpatient Admission. Preliminary diagnosis is Altered mental status, unspecified; Fall on same level, unspecified. Bed requested for Telemetry/MedSurg (Inpatient). Status is Inpatient Admission. Condition is Stable. Problem is new. Symptoms have improved. [facility] 11/01 02:07 :10/31/2020 23:42 Hospitalization Ordered by Artemio Casey MD for Inpatient ea Admission. Preliminary diagnosis is Altered mental status, unspecified; Fall on same level, unspecified. Bed requested for Telemetry/MedSurg (Inpatient). Status is Inpatient Admission. Condition is Stable. Problem is new. Symptoms have improved.
[2020-11-01] MEDS ORDERED: FENTANYL CITR 100 MCG/2 ML IV PRN (01:27)
[2020-11-01] MEDS ORDERED: ACETAMINOPHEN 500 MG TAB PO PRN (01:27)
[2020-11-01] MEDS ORDERED: LORazepam 2 MG/ML VIAL IV PRN (01:27)
[2020-11-01] MEDS ORDERED: NA CHLORIDE 0.9% 1,000 ML ONE ×2 (01:33→02:19)
--- NOTE | 2020-11-01 01:39 | P.HP ---
Certification for Inpatient Patient admitted to: Inpatient With expected LOS: >2 Midnights Patient will require the following post-hospital care: None Practitioner: I am a practitioner with admitting privileges, knowledge of patient current condition, hospital course, and medical plan of care. Services: Services provided to patient in accordance with Admission requirements found in Title 42 Section 412.3 of the Code of Federal Regulations <Sharath Walker - Last Filed: 11/01/20 01:30> Patient History Date of Service: 11/01/20 Primary Care Provider: Dr. Cheek, Dr. Angel, Dr. Armstrong Reason for admission: AMS History of Present Illness: 60-year-old female with history of SLE, seizure disorder, TIA cerebritis, GERD presents emergency department for altered mental status. Patient is altered at time of examination but appears to have intermittent episodes of clarity, reports that she lives alone with her dog but has family that checks on her. Patient is brought in by EMS, no family around for interview and unable to reach them my phone at this time so history is based off of patient's exam and chart review. On exam patient initially was keenly alert but oriented times 1 to name only, after reviewing chart went to re-examine patient and she was oriented x4 by confused claiming that there was a pie in her bed. Patient is able to follow commands and can answer questions appropriately about her medical history but appears very encephalopathic. Patient with recent admission for similar complaint but was discharged the next morning as she is feeling much better. Patient does report a fall in that she laid on the floor for couple of hr before calling for help CPK 1129, CK MB 27.3. Creatinine 0.7 GFR 85. Urine negative for signs of infection, patient is afebrile white blood cell count within normal limits, no indication of infection at this time. Patient has piece of paper at bedside with medical history, vasculitis of brain with edema/cerebritis is listed under previous diagnosis, patient appears to take prednisone 2.5 mg p.o. once daily. Also with history of aortic and mitral valve replacements on chronic anticoagulation with Coumadin. - Past Medical/Surgical History Diabetic: No -: Systemic lupus erythematous -: cerebritis -: Seizure disorder -: DJD, chronic pain -: GERD -: Chronic steroid use -: Arterial/venous insufficiency -: Anxiety/panic disorder -: Bilateral HIP REPLACED -: RIGHT KNEE REPLACED -: MITRAL and AORTIC VALVE REPLACED -: tubal ligation -: Colon sx -: Partial left foot removed Psychosocial/ Personal History: Patient reports that she lives alone with her dog, does have family at around and a friend that checks on her. (patient altered at time of exam) - Family History Sister -: Heart disease - Social History Smoking Status: Current every day smoker Alcohol use: No CD- Drugs: No Caffeine use: No Place of Residence: Home <Sharath Walker - Last Filed: 11/01/20 01:30> Date of Service: 11/01/20 <Artemio Casey - Last Filed: 11/01/20 12:40> Allergies hydromorphone HCl [From Dilaudid] Allergy (Intermediate, Verified 10/13/20 22:28) Nausea/Vomiting Penicillins Allergy (Intermediate, Verified 10/13/20 22:28) Itching/Hives/Rash prochlorperazine [From Compazine] Allergy (Intermediate, Verified 10/13/20 22:28) Nausea/Vomiting prochlorperazine edisylate [From Compazine] Allergy (Intermediate, Verified 10/13/20 22:28) Nausea/Vomiting prochlorperazine maleate [From Compazine] Allergy (Intermediate, Verified 10/13/20 22:28) Nausea/Vomiting promethazine [From Phenergan] Allergy (Intermediate, Verified 10/13/20 22:28) Nausea/Vomiting morphine Allergy (Mild, Verified 10/14/20 07:43) Itching/Hives/Rash promethazine HCl [From Phenergan] Allergy (Verified 10/13/20 22:28) Nausea/Vomiting plastic tape Allergy (Mild, Uncoded 10/13/20 22:28) Itching Tape Allergy (Mild, Uncoded 10/13/20 22:28) Itching Home Medications: ALPRAZolam [Alprazolam] 2 mg PO TID PRN 11/11/19 Cyanocobalamin [Vitamin B-12*] 1,000 mcg IM DIRECTED 11/11/19 Gabapentin 600 mg PO BID 11/11/19 Levothyroxine [Synthroid*] 150 mcg PO DAILY 11/11/19 Metoprolol Succinate [Toprol Xl*] 50 mg PO DAILY 11/11/19 Mupirocin Oint [Bactroban 2% Ointment*] 1 marisol TOP DAILY 11/11/19 Omeprazole [Prilosec] 40 mg PO DAILY 11/11/19 Venlafaxine HCl [Effexor*] 150 mg PO DAILY 11/11/19 predniSONE [Prednisone] 2.5 mg PO DAILY 11/11/19 Acyclovir 400 mg PO DAILY 11/01/20 Amitriptyline [Elavil] 25 mg PO BID 11/01/20 Cyclobenzaprine [Flexeril] 10 mg PO QID 11/01/20 Cyclosporine [Restasis] 1 drop EACH EYE 11/01/20 Estradiol [Estrace] 0.01 11/01/20 Magnesium Oxide 400 mg PO DAILY 11/01/20 Meclizine HCl 12.5 mg PO 11/01/20 Warfarin Sodium [Coumadin*] 5 mg PO 11/01/20 Review of Systems is unable to be obtained (Patient disoriented, confused.) <Sharath Walker - Last Filed: 11/01/20 01:30> Physical Examination - Physical Exam General: Alert, Oriented x1, Confused HEENT: Atraumatic, Normocephalic, PERRLA, Other (Mucous membranes dry) Neck: Supple Respiratory: Clear to auscultation bilaterally, Normal air movement Cardiovascular: No edema, Regular rate/rhythm, Normal S1 S2 Capillary refill: <2 Seconds Gastrointestinal: Soft and benign Musculoskeletal: No contractures, No erythema, No tenderness Integumentary: No significant lesion, No tenderness/swelling, No erythema Neurological: Normal speech, Normal strength at 5/5 x4 extr, Normal tone, Sensation intact - Studies Laboratory Data (last 24 hrs) 10/31/20 21:25: Sodium Cancelled, Potassium Cancelled, BUN Cancelled, Creatinine Cancelled, Glucose Cancelled 10/31/20 21:23: PT 34.9 H, INR 3.00, APTT 46.5 H 10/31/20 21:23: WBC 9.90, Hgb 11.4 L, Hct 34.2 L, Plt Count 291 10/31/20 21:23: Sodium 136, Potassium 4.4, BUN 11, Creatinine 0.70, Glucose 103, Magnesium 1.9, Total Bilirubin 0.3, AST 56 H, ALT 26, Alkaline Phosphatase 89, Lipase 69 L <Sharath Walker - Last Filed: 11/01/20 01:30> - Studies Laboratory Data (last 24 hrs) 10/31/20 21:25: Sodium Cancelled, Potassium Cancelled, BUN Cancelled, Creatinine Cancelled, Glucose Cancelled 10/31/20 21:23: PT 34.9 H, INR 3.00, APTT 46.5 H 10/31/20 21:23: WBC 9.90, Hgb 11.4 L, Hct 34.2 L, Plt Count 291 10/31/20 21:23: Sodium 136, Potassium 4.4, BUN 11, Creatinine 0.70, Glucose 103, Magnesium 1.9, Total Bilirubin 0.3, AST 56 H, ALT 26, Alkaline Phosphatase 89, Lipase 69 L <Artemio Casey - Last Filed: 11/01/20 12:40> Assessment and Plan - Plan Assessment Encephalopathy possibly related to vasculitis secondary to SLE vs delirium related to long-term steroid use Rhabdomyolysis secondary to fall S/P mitral and aortic valve replacements on chronic anticoagulation therapy Seizure disorder GERD DJD, chronic pain Anxiety/panic attacks Arterial/venous insufficiency with history of osteomyelitis and amputations Plan Encephalopathy possibly related to vasculitis secondary to SLE vs delirium related to long-term steroid use: Neurology consulted, no sign of infection noted, CT head without acute findings. Blood cultures obtained, pro calcitonin/CRP/ESR pending, urinalysis without signs of infection. Patient without any signs of focal neurological deficits, appears more encephalopathic. Patient with documented history of cerebritis/vasculitis, no further information available at time of interview has no family is around and patient cannot offer any more details. Patient does take prednisone 2.5 mg p.o. daily according to her med list that she had brought with her. Will need to discuss further with neurology possible pulse dose steroids. Patient is therapeutic with her INR S/P valve repairs. Continue Coumadin for DVT prophylaxis. Patient's mental status appears to wax and wane with very different exams over the course of the last couple of hr. MRI stroke protocol ordered for the morning. Rhabdomyolysis secondary to fall: Trend CPK/CK MB levels. Patient given 1 L normal saline bolus in the ER, continue NS at 125 at this time. Renal function normal at this time, will monitor daily labs. S/P mitral and aortic valve replacements on chronic anticoagulation therapy: Continue Coumadin 5 mg daily, continue daily INRs. Seizure disorder: Continue home medications. GERD: Continue home meds DJD, chronic pain: Continue home medications, on home medication form it is noted that patient can only receive fentanyl for IV pain relief. Allergic to others. Anxiety/panic attacks: Patient takes alprazolam 2 mg p.o. t.i.d. p.r.n., will provide patient with Ativan 0.5 IV p.r.n.. Patient was noted to be agitated throughout her ED stay. Arterial/venous insufficiency with history of osteomyelitis and amputations: Patient with well healing wound to the plantar aspect of the right great toe and plantar aspect of the distal right foot. X-ray ordered to rule out osteo. Patient was discharged from wound healing in the recent past. Discharge Plan: Home Plan to discharge in: 48 Hours - Advance Directives Does patient have a Living Will: No Does patient have a Durable POA for Healthcare: No - Code Status/Comfort Care Code Status Assessed: Yes (FC) Critical Care: No Time Spent Managing Pts Care (In Minutes): 55 <Sharath Walker - Last Filed: 11/01/20 01:30> - Plan Plan of care reviewed as noted above by Sharath Walker. acute encephalopathy - possible SLE related; intermittently is oriented x3 at times. ESR and CRP elevated - more than last month. blood cultures obtained. no signs of bacterial infection possibly from SLE, will give high-dose steroids, will discuss further with neuro MRI ordered to r/o CVA / edema <Artemio Casey - Last Filed: 11/01/20 12:40>
[2020-11-01 02:48] VITALS: BMI 22.2
[2020-11-01] MEDS: NA CHLORIDE 0.9% 1,000 ML IV SCH ×3 (03:39→15:48)
[2020-11-01 04:19] LABS: Protime INR 2.96
[2020-11-01] MEDS: PANTOPRAZOLE 40MG TABLET PO SCH (05:31)
[2020-11-01] MEDS: METOPROLOL XL 50 MG TAB PO SCH (05:32)
[2020-11-01 06:01] LABS: ALT/SGPT 26 U/L (12-78); AST/SGOT 58 U/L (15-37); Alkaline Phosphatase 84 U/L (45-117); BUN Blood Urea Nitrogen 8 mg/dL (7-18); Bicarbonate 29 mmol/L (21-32); Bilirubin Total 0.3 mg/dL (0.2-1.0); CKMB Creatine Kinase MB 10.7 ng/mL (0.3-3.6); Creatine Phosphokinase 965 U/L (26-192); Glucose Level 87 mg/dL (74-106); Magnesium 1.9 mg/dL (1.8-2.4); Potassium 3.9 mmol/L (3.5-5.1); Protein, Total 7.3 g/dL (6.4-8.2); Sodium Level 138 mmol/L (136-145); Thyroid Stimulating Hormone 0.785 uIU/mL (0.360-3.740)
[2020-11-01 07:57] LABS: Absolute Lymphocytes (CBC) 1.1 K/uL (0.7-4.9); Basophils % 0.3 % (0-1.3); Hematocrit 32.1 % (36.0-45.0); Lymphocytes % 16.2 % (15.3-44.8); MPV 9.1 fL (7.6-11.3)
--- NOTE | 2020-11-01 08:54 | RAD REPORT ---
EXAM DESCRIPTION: RAD - Hip Left 2 View - 10/31/2020 10:13 pm CLINICAL HISTORY: PAIN COMPARISON: Hip Left 2 View dated 06/19/2019 FINDINGS: Left total hip arthroplasty noted. No evidence of hardware loosening. No acute fracture id entified.
[2020-11-01] MEDS ORDERED: ENOXAPARIN 40 MG/0.4 ML SQ SCH (09:00)
[2020-11-01] MEDS: POTASSIUM 25 MEQ EFFERV TAB PO ONE ×2 (09:00→10:15)
--- NOTE | 2020-11-01 09:01 | RAD REPORT ---
EXAM DESCRIPTION: RAD - Hip Right 2 View - 10/31/2020 11:00 pm CLINICAL HISTORY: PAIN COMPARISON: Hip Right 2 View dated 04/03/2017 FINDINGS: Right total hip arthroplasty is noted. No evidence of hardware loosening seen. Mild soft t issue swelling adjacent to the greater trochanter noted.
--- NOTE | 2020-11-01 09:17 | RAD REPORT ---
EXAM DESCRIPTION: RAD - Foot Right 3 View - 11/01/2020 2:04 am CLINICAL HISTORY: foot wound Pain and swelling COMPARISON: Foot Right 3 View dated 03/07/2020; MRI FOOT RT W WO CON dated 01/31/2010 FINDINGS: Chronic flattening of the second through fifth metatarsal heads is noted. No acute fractur e or dislocation. No radiographic evidence of osteomyelitis seen.
[2020-11-01] MEDS: VENLAFAXINE HCL 75 MG TABLET PO SCH (10:14)
[2020-11-01] MEDS: GABAPENTIN 300 MG CAP PO SCH ×2 (10:15→20:52)
[2020-11-01] MEDS: MAGNESIUM OXIDE 400 MG TAB PO SCH (10:16)
[2020-11-01] MEDS: ACYCLOVIR 400 MG TABLET PO SCH (10:16)
[2020-11-01] MEDS: AMITRIPTYLINE 25 MG TAB PO SCH ×2 (10:19→20:53)
[2020-11-01] MEDS ORDERED: METHYLPREDNISOLONE 125 MG INJ IV SCH ×2 (11:00→18:00)
[2020-11-01] MEDS ORDERED: POTASSIUM CL SA 10 MEQ TAB PO ONE (11:07)
--- NOTE | 2020-11-01 12:54 | EKG ---
Test Date: 2020-10-31 Test Time: 20:45:48 Pharmacy Retail Support Specialist: MACKENZIE MEASUREMENT RESULTS: Intervals: Rate: 81 WI: 164 QRSD: 88 QT: 398 QTc: 462 [place]: P: 39 WI: 164 QRS: 11 T: 62 INTERPRETIVE STATEMENTS: Normal sinus rhythm with sinus arrhythmia Normal ECG Compared to ECG 10/13/2020 13:57:49 Ventricular premature complex(es) no longer present Myocardial infarct finding no longer present Electronically Signed On 11-01-20 12:52:37 CDT by Rolan Angel
[2020-11-01] MEDS: WARFARIN SODIUM 5 MG TAB PO SCH (17:00)
[2020-11-01] MEDS: METHYLPRED NA SUC 250 MG in NA CHLORIDE 0.9% 100 ML IV SCH ×2 (19:20→23:22)
--- NOTE | 2020-11-01 19:21 | RAD REPORT ---
EXAM DESCRIPTION: MRI - Brain W/Wo Cont - 11/01/2020 7:01 pm CLINICAL HISTORY: Confusion, head injury, headache COMPARISON: October 31, [address] TECHNIQUE: Axial, sagittal, and coronal magnetic images of the brain were obtained. 15 cc MultiHance administered intravenously FINDINGS: Mild to moderate signal within periventricular, and deep and l white matter probably ische kareem changes secondary to small vessel disease The ventricles are normal in caliber. Diffusion-weighted/ ADC mapping sequences do not demonstrate evidence of an acute infarction. No abnormal enhancement within the brain is seen. An extra-axial fluid collection is not noted. Fluid within the sinuses/mastoids is not seen IMPRESSION: No acute abnormality displayed
--- NOTE | 2020-11-01 19:27 | RAD REPORT ---
EXAM DESCRIPTION: MRI - MRA Neck W/Wo Cont - 11/01/2020 7:01 pm CLINICAL HISTORY: Confusion, head injury, headache COMPARISON: None. TECHNIQUE: Magnetic resonance angiogram of the neck was performed. 19 cc MultiHance was administered intravenously. 3D MIPS reconstruction performed FINDINGS: Mild to moderate narrowing involves proximal right common carotid artery. Mild plaque within the internal and external carotid arteries bilaterally The left common carotid artery appears normal. An aneurysm is not seen. Moderate narrowing involves proximal right vertebral artery. Left vertebral artery appears normal IMPRESSION: Moderate narrowing of proximal right vertebral artery Mild to moderate narrowing of proximal right common carotid artery NASCET criteria used. Mild 0-49% stenosis Moderate 50-69% stenosis Severe 70-99% stenosis
--- NOTE | 2020-11-01 19:29 | RAD REPORT ---
EXAM DESCRIPTION: MRI - MRA Head Wo Cont - 11/01/2020 7:01 pm CLINICAL HISTORY: Confusion, head injury, headache COMPARISON: None. TECHNIQUE: Magnetic resonance angiogram was performed. 3D MIPS reconstruction performed FINDINGS: The anterior cerebral, middle cerebral,, distal internal carotid and basilar arteries do n ot demonstrate a significant stenosis. Areas of narrowing involving posterior cerebral arteries appears chronic. An aneurysm is not displayed. IMPRESSION: No acute abnormality displayed
[2020-11-02 05:27] LABS: Absolute Lymphocytes (CBC) 0.6 K/uL (0.7-4.9); Basophils % 0.1 % (0-1.3); Hematocrit 33.5 % (36.0-45.0); Lymphocytes % 13.4 % (15.3-44.8); MPV 8.4 fL (7.6-11.3); RBC Red Blood Cell Count 4.15 M/uL (3.86-4.86)
[2020-11-02 05:36] LABS: Protime INR 2.05
[2020-11-02 05:58] LABS: ALT/SGPT 26 U/L (12-78); AST/SGOT 39 U/L (15-37); Albumin 2.7 g/dL (3.4-5.0); Alkaline Phosphatase 83 U/L (45-117); BUN Blood Urea Nitrogen 11 mg/dL (7-18); Bicarbonate 26 mmol/L (21-32); Bilirubin Total 0.3 mg/dL (0.2-1.0); CKMB Creatine Kinase MB 1.9 ng/mL (0.3-3.6); Creatine Phosphokinase 380 U/L (26-192); Glucose Level 124 mg/dL (74-106); Magnesium 1.8 mg/dL (1.8-2.4); Potassium 3.7 mmol/L (3.5-5.1); Protein, Total 7.4 g/dL (6.4-8.2); Sodium Level 141 mmol/L (136-145)
[2020-11-02] MEDS: PANTOPRAZOLE 40MG TABLET PO SCH (06:18)
[2020-11-02] MEDS: METOPROLOL XL 50 MG TAB PO SCH (06:18)
[2020-11-02] MEDS: METHYLPRED NA SUC 250 MG in NA CHLORIDE 0.9% 100 ML IV SCH ×3 (06:23→17:12)
[2020-11-02] MEDS: HYDROCODONE/APAP 5/325 MG TAB PO PRN ×2 (08:43→20:31)
[2020-11-02] MEDS: ONDANSETRON 4 MG/2 ML VIAL IV PRN (08:44)
[2020-11-02] MEDS: GABAPENTIN 300 MG CAP PO SCH ×2 (08:47→20:05)
[2020-11-02] MEDS: POTASSIUM 25 MEQ EFFERV TAB PO ONE ×2 (08:47→09:00)
[2020-11-02] MEDS: AMITRIPTYLINE 25 MG TAB PO SCH ×2 (08:47→20:05)
[2020-11-02] MEDS: ACYCLOVIR 400 MG TABLET PO SCH (08:47)
[2020-11-02] MEDS: VENLAFAXINE HCL 75 MG TABLET PO SCH (08:47)
[2020-11-02] MEDS: MAGNESIUM OXIDE 400 MG TAB PO SCH (08:48)
[2020-11-02] MEDS ORDERED: MAGNESIUM SULFATE 1 gm IVPB 1 GM/100 ML BAG IV ONE (09:00)
[2020-11-02 11:21] LABS: CSF Glucose 82 mg/dL (40-70)
--- NOTE | 2020-11-02 11:27 | RAD REPORT ---
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 After answering all questions, both oral and written consent were obtained. Time-out procedu re was performed. The patient was placed in an oblique prone position on the fluoroscopic table. The skin of the lower back was prepped and draped in the usual sterile fashion. After anesthetizing the skin and deeper sof t tissues with 1% lidocaine, a 22 gauge needle was advanced into the thecal sac at the L4-5 level. 9 cc of clear CSF collected. At the conclusion of the procedure the needle was withdrawn and a sterile bandage placed over the pun cture site. The patient tolerated the procedure well without immediate complications. Total fluoro time: 0.6 minutes Images obtained: 3 IMPRESSION: Successful fluoroscopic guided lumbar puncture. All obtained fluid was sent to the lab f or studies requested by the referring physician.
[2020-11-02] MEDS: NA CHLORIDE 0.9% 1,000 ML IV SCH (11:57)
--- NOTE | 2020-11-02 13:50 | CON ---
Reason For Consultation: Consultation called because of altered mental status. History Of Present Illness: Ms. Aldana is a 60-year-old right-handed patient, who is on chronic pain therapy with multiple pain medications and she has been on this regimen for many years. Has also reported lupus with episodes of confusion, comes in with decreased responsiveness to [facility] on 11/01/2020. At the time of my evaluation, the patient was back to her normal cognitive level of functioning. She did not have any disorientation or confusion. She was fully oriented to person, place, situation, followed all commands appropriately. Had no deficits in terms of her cognitive functioning. Her workup included complete blood count with differential was remarkable for slightly low hemoglobin and hematocrit. Platelets were normal. Coagulation panel shows an INR of 2.05. Her chemistries were essentially normal. Glucose 124, calcium slightly low at 8.4. Her CK-MB was slightly elevated initially to 10.7 on the 30th, now on the 31st to 1.9. Creatine kinase was elevated to 965 and 1 day later which is today is 386. Her albumin is slightly low. Otherwise, AST was elevated at 39. Procalcitonin was elevated at 0.11, now 0.5. Thyroid function essentially normal. Urinalysis showed trace of blood. She did have a CSF study with glucose elevated at 82, protein normal at 44. The rest of the study is pending. Urine drug screen positive for opiates and benzodiazepines and her COVID test is negative. 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 Social History: Denies using tobacco, alcohol, or IV drug use. Allergies: TO ASPIRIN, COMPAZINE, METHADONE, MORPHINE, NEURONTIN, PENICILLIN, PHENERGAN, PLASTIC TAPE, AND SUBOXONE. Family History: Noncontributory. Review of Systems: As noted, she has had chronic pain in the knees, hips, and throughout the body. Also reported confusion at times. Otherwise, no genitourinary or gastrointestinal symptoms and no dermatological symptoms. Otherwise negative on a 10-point systems review. Physical Examination: Vital Signs: Blood pressure 119/65, pulse 88, respiratory rate 16, temperature 98.2, O2 saturation 96% to 99% room air. Weight 138 pounds, 5 feet 6 inches, BMI 22.3. General: Ms. Aldana is resting in bed. She is in no acute distress. She is about to get an EEG and she is having blood drawn. HEENT: She is normocephalic, atraumatic. Sclerae are anicteric. Oropharynx is pink and moist. Neck: Supple. Chest: Clear. Heart: Regular. Extremities: Show no edema or cyanosis. Neurologic: She is alert and oriented to situation, place, and person. Follows all commands appropriately. Cranial nerves 2 through 12 intact. Motor examination; mild diffuse weakness in lower extremity 4/5, upper extremity 5/5. Sensory exam; decreased to stocking-glove light touch and temperature in legs and the arms. Reflexes; depressed upper and lower extremities. Coordination intact, but slow in upper and lower extremities. Assessment/Plan: 1. Ms. Aldana is a 60-year-old patient with history of lupus cerebritis, who comes in with resolved encephalopathy. She is getting an EEG. Her lumbar puncture results are pending. Her blood glucose is elevated. We will follow up CSF studies. 2. We will follow up EEG. At this point, the patient is at her baseline cognitive level of function. She does not have any evidence of an ongoing infection in blood or urine. No evidence of stroke on brain MRI. No evidence of an inflammatory process involving the brain. She may be discharged once her EEG is complete and rest of her workup is done. Follow up in Dr. Talamantes's clinic in 1 month. ROSS/GERARDO Voice ID: [id number] Report ID: [id number] PRISCILLA
--- NOTE | 2020-11-02 14:36 | P.PN ---
Subjective Date of Service: 11/02/20 Primary Care Provider: Dr. Cheek, Dr. Angel, Dr. Armstrong Chief Complaint: AMS Subjective: Improving (slight improvement in cognition. No acute events overnight, nurse report patient slept well. Patient still with slight confusion this morning. Scheduled for a lumbar puncture today) Review of Systems 10-point ROS is otherwise unremarkable Physical Examination - Vital Signs Temperature: 97.9 F Blood Pressure: 122/76 Pulse: 89 Respirations: 16 Pulse Ox (%): 97 Assessment & Plan Physician Review Additional Text: Physical Exam General: Alert, Oriented x2, mild confusion HEENT: PERRLA, MMM Respiratory: Clear to auscultation bilaterally, Normal air movement Cardiovascular: No edema, Regular rate/rhythm, Normal S1 S2 Gastrointestinal: Soft and benign, nontender Ext: no edema, no rash, no tenderness, no erythema Neurological: Normal speech, Normal strength at 5/5 x4 extr, mild confusion Problem List: Encephalopathy possibly related to vasculitis secondary to SLE vs delirium related to long-term steroid use Rhabdomyolysis secondary to fall S/P mitral and aortic valve replacements on chronic anticoagulation therapy Seizure disorder GERD DJD, chronic pain Anxiety/panic attacks Arterial/venous insufficiency with history of osteomyelitis and amputations Encephalopathy -CT/MRI negative for stroke -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
[2020-11-02] MEDS: WARFARIN SODIUM 5 MG TAB PO SCH (17:11)
[2020-11-03] MEDS: ALPRAZOLAM 1 MG TABLET PO PRN ×2 (00:21→22:54)
[2020-11-03] MEDS: METHYLPRED NA SUC 250 MG in NA CHLORIDE 0.9% 100 ML IV SCH ×4 (00:21→17:30)
[2020-11-03 03:22] VITALS: O2SAT 96
[2020-11-03 04:36] LABS: Absolute Lymphocytes (CBC) 0.5 K/uL (0.7-4.9); Basophils % 0.2 % (0-1.3); Hematocrit 29.3 % (36.0-45.0); Lymphocytes % 5.7 % (15.3-44.8); MPV 8.6 fL (7.6-11.3)
[2020-11-03 04:44] LABS: Protime INR 2.61
[2020-11-03 05:04] LABS: BUN Blood Urea Nitrogen 16 mg/dL (7-18); Bicarbonate 27 mmol/L (21-32); CKMB Creatine Kinase MB 1.6 ng/mL (0.3-3.6); Creatine Phosphokinase 152 U/L (26-192); Glucose Level 147 mg/dL (74-106); Magnesium 2.2 mg/dL (1.8-2.4); Sodium Level 143 mmol/L (136-145)
[2020-11-03] MEDS: PANTOPRAZOLE 40MG TABLET PO SCH (05:53)
[2020-11-03] MEDS: METOPROLOL XL 50 MG TAB PO SCH (05:53)
[2020-11-03] MEDS: MAGNESIUM OXIDE 400 MG TAB PO SCH (09:00)
[2020-11-03] MEDS: VENLAFAXINE HCL 75 MG TABLET PO SCH (09:19)
[2020-11-03] MEDS: HYDROCODONE/APAP 5/325 MG TAB PO PRN ×2 (09:19→22:55)
[2020-11-03] MEDS: AMITRIPTYLINE 25 MG TAB PO SCH ×2 (09:19→20:56)
[2020-11-03] MEDS: GABAPENTIN 300 MG CAP PO SCH ×2 (09:19→20:56)
[2020-11-03] MEDS: ACYCLOVIR 400 MG TABLET PO SCH (09:20)
--- NOTE | 2020-11-03 16:32 | P.PN ---
Subjective Date of Service: 11/03/20 Primary Care Provider: Dr. Cheek, Dr. Angel, Dr. Armstrong Chief Complaint: AMS Subjective: Improving (more alert/oriented x3. She reports feeling close to her baseline/ like her usual self. No acute events overnight. Nursing staff report the patient slept well. CRP much improved. Lumbar puncture yesterday preliminary results negative/normal) Review of Systems 10-point ROS is otherwise unremarkable Physical Examination - Vital Signs Temperature: 98.6 F Blood Pressure: 116/54 Pulse: 86 Respirations: 18 Pulse Ox (%): 95 Assessment & Plan Physician Review Additional Text: Physical Exam General: Alert, Oriented x3, no confusion HEENT: PERRLA, MMM Respiratory: Clear to auscultation bilaterally, Normal air movement Cardiovascular: No edema, Regular rate/rhythm, Normal S1 S2 Gastrointestinal: Soft and benign, nontender Ext: no edema, no rash, no tenderness, no erythema Neurological: Normal speech, Normal strength at 5/5 x4 extr, normal affect Problem List: Encephalopathy possibly related to cerebritis/delerium secondary to SLE Rhabdomyolysis secondary to fall, resolved S/P mitral and aortic valve replacements on chronic anticoagulation therapy Seizure disorder GERD DJD, chronic pain Anxiety/panic attacks Arterial/venous insufficiency with history of osteomyelitis and amputations Encephalopathy -CT/MRI negative for stroke -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 elevated CRP - symptoms improved with high dose steroids and seeing improvement of CRP as well -started on high-dose steroids 11/01 -neuro consulted -LP results negative / normal so far -blood cultures negative -UA negative -possibly took too much opioids/benzo's at home, will give lower dose here, do not want patient to go through withdrawal -pt denies taking any extra medications -she does endorse having lots of stress lately and arguments with her son, however denies taking extra medication -will complete 3 days of high dose steroids tomorrow, and discharge on long taper -pt states will have caregiver tomorrow ~10am S/P mitral and aortic valve replacements on chronic anticoagulation therapy -pt was given 5mg Coumadin while here -now reporting she takes 2.5mg at home -will hold tonights -pt will likely have elevated INR secondary to high dose steroids -does report h/o slow GI bleed when INR elevated -will need to go home on lower dose and frequent INR checks for the next few weeks Rhabdomyolysis secondary to fall, resolved -CPK downrending, Seizure, GERD, DJD, chronic pain, Anxiety, Arterial insufficiency - continue home medications, stable Dispo: anticipate dc tomorrow Time Spent Managing Pts Care (In Minutes): 35
[2020-11-03] MEDS ORDERED: WARFARIN SODIUM 2 MG TAB PO SCH (17:00)
[2020-11-04] MEDS: METHYLPRED NA SUC 250 MG in NA CHLORIDE 0.9% 100 ML IV SCH (00:25)
[2020-11-04] MEDS: METOPROLOL XL 50 MG TAB PO SCH (05:54)
[2020-11-04] MEDS: PANTOPRAZOLE 40MG TABLET PO SCH (05:54)
[2020-11-04] MEDS ORDERED: METHYLPRED NA SUC 500 MG in NA CHLORIDE 0.9% 100 ML IV SCH (06:00)
[2020-11-04 06:13] LABS: Absolute Lymphocytes (CBC) 0.6 K/uL (0.7-4.9); Basophils % 0.1 % (0-1.3); Hematocrit 30.4 % (36.0-45.0); Lymphocytes % 6.7 % (15.3-44.8); MPV 8.6 fL (7.6-11.3); RBC Red Blood Cell Count 3.69 M/uL (3.86-4.86)
[2020-11-04] MEDS ORDERED: METHYLPREDNISOLONE 125 MG INJ ONE (06:35)
[2020-11-04 06:38] LABS: ALT/SGPT 19 U/L (12-78); AST/SGOT 18 U/L (15-37); Albumin 2.6 g/dL (3.4-5.0); Alkaline Phosphatase 58 U/L (45-117); BUN Blood Urea Nitrogen 26 mg/dL (7-18); Bicarbonate 30 mmol/L (21-32); Bilirubin Total 0.2 mg/dL (0.2-1.0); Glucose Level 115 mg/dL (74-106); Magnesium 2.2 mg/dL (1.8-2.4); Potassium 3.7 mmol/L (3.5-5.1); Protein, Total 6.3 g/dL (6.4-8.2); Sodium Level 142 mmol/L (136-145)
[2020-11-04 06:57] LABS: Protime INR 3.21
[2020-11-04] MEDS: ONDANSETRON 4 MG/2 ML VIAL IV PRN (07:34)
--- NOTE | 2020-11-04 08:02 | P.DS ---
Admission Date: 11/01/20 Discharge Date: 11/04/20 Primary Care Provider: Dr. Cheek, Dr. Angel, Dr. Armstrong Disposition: DC HOME/HOME HEALTH CARE Discharge Condition: GOOD Reason for Admission: AMS Consultations: Neurology - Dr. Talamantes Procedures: R Hip X-ray (10/31): Right total hip arthroplasty is noted. No evidence of hardware loosening seen. Mild soft tissue swelling adjacent to the greater trochanter noted L Hip X-ray (10/31): Left total hip arthroplasty noted. No evidence of hardware loosening. No acute fracture identified. CT head/ c-spine (10/31): No acute hemorrhage, hydrocephalus or extra-axial collection is identified.No areas of brain edema or midline shift. No acute intracranial or cervical spine findings. MRI Brain (11/01): Left total hip arthroplasty noted. No evidence of hardware loosening. No acute fracture identified. Mild to moderate signal within periventricular, and deep and l white matter probably ischemic changes secondary to small vessel disease X-ray foot (11/01): Chronic flattening of the second through fifth metatarsal heads is noted. No acute fracture or dislocation. No radiographic evidence of osteomyelitis seen. MRA neck (11/01): Moderate narrowing of proximal right vertebral artery. Mild to moderate narrowing of proximal right common carotid artery MRA Brain (11/01): No acute abnormality displayed. Areas of narrowing involving posterior cerebral arteries appears chronic. EEG (11/01): mildly abnormal due to mildly slow background. non-specific finding indication presence of a mild diffuse disturbance in cerebral function. Lumbar Puncture (11/02): 9 cc of clear CSF collected. no malignant cells by cytology Problem List: Acute Encephalopathy secondary to SLE cerebritis / psychosis Rhabdomyolysis secondary to fall, resolved S/P mitral and aortic valve replacements on chronic anticoagulation therapy Seizure disorder GERD DJD, chronic pain Anxiety/panic attacks Arterial/venous insufficiency with history of osteomyelitis and amputations Brief History of Present Illness: 60yo F, PMH: SLE, seizure disorder, TIA cerebritis, GERD presents emergency department for altered mental status. Patient is altered at time of examination but appears to have intermittent episodes of clarity, reports that she lives alone with her dog but has family that checks on her and a caregiver for a few hours every other day. On exam patient initially was keenly alert but oriented times 1 to name only, after reviewing chart went to re-examine patient and she was oriented x4 by confused claiming that there was a pie in her bed. Patient is able to follow commands and can answer questions appropriately about her medical history but appears very encephalopathic. Patient with recent admission for similar complaint but was discharged the next morning as she is feeling much better. Patient does report a fall in that she laid on the floor for couple of hours before calling for help. CPK 1129, CK MB 27.3. Creatinine 0.7 GFR 85. Urine negative for signs of infection, patient is afebrile white blood cell count within normal limits, no indication of infection at this time. Patient has piece of paper at bedside with medical history, vasculitis of brain with edema/cerebritis is listed under previous diagnosis, patient appears to take prednisone 2.5 mg p.o. once daily. Also with history of aortic and mitral valve replacements on chronic anticoagulation with Coumadin. Hospital Course: Patient was admitted and underwent MRI for further evaluation which did not reveal any acute pathology. Workup revealed significantly elevated CRP and elevated ESR. Patient was started on high-dose steroids to treat possible SLE cerebritis / psychosis. Patient had improvement in symptoms and eventual resolution. Her CRP improved significantly (130 -> 20). Neurology was consulted and agreed with treatment plan. EEG obtained with nonspecific slow waves. Pat ient underwent lumbar puncture - negative cytology, rather unremarkable, and some send out still pending. UA negative, blood cultures negative. She completed 3 days of high dose steroids and was discharged on prolonged taper. She was maintained on norco 5mg q6-q8hour while hospitalized and appeared comfortable / denies pain. Higher doses may contribute to patient's symptomatology was well. She is to f/u with PCP in 3-5 days and re-establish with a rn clinician as soon as possible Vital Signs/Physical Exam: Physical Exam General: Alert, Oriented x3, no confusion HEENT: PERRLA, MMM Respiratory: Clear to auscultation bilaterally, Normal air movement Cardiovascular: No edema, Regular rate/rhythm, Normal S1 S2 Gastrointestinal: Soft and benign, nontender Ext: no edema, no rash, no tenderness, no erythema Neurological: Normal speech, Normal strength at 5/5 x4 extr, normal affect Temp Pulse Resp BP Pulse Ox 97.7 F 76 18 128/62 96 11/04/20 04:00 11/04/20 05:54 11/04/20 04:00 11/04/20 05:54 11/04/20 04:00 Laboratory Data at Discharge: WBC 8.90 K/uL (4.3-10.9) 11/04/20 05:38 Hgb 10.1 g/dL (12.0-15.0) L 11/04/20 05:38 Hct 30.4 % (36.0-45.0) L 11/04/20 05:38 Plt Count 303 K/uL (152-406) 11/04/20 05:38 PT 37.4 SECONDS (9.5-12.5) H 11/04/20 05:38 INR 3.21 11/04/20 05:38 APTT 46.5 SECONDS (24.3-36.9) H 10/31/20 21:23 Sodium 142 mmol/L (136-145) 11/04/20 05:38 Potassium 3.7 mmol/L (3.5-5.1) 11/04/20 05:38 BUN 26 mg/dL (7-18) H 11/04/20 05:38 Creatinine 0.65 mg/dL (0.55-1.3) 11/04/20 05:38 Glucose 115 mg/dL (74-106) H 11/04/20 05:38 Magnesium 2.2 mg/dL (1.8-2.4) 11/04/20 05:38 Total Bilirubin 0.2 mg/dL (0.2-1.0) 11/04/20 05:38 AST 18 U/L (15-37) 11/04/20 05:38 ALT 19 U/L (12-78) 11/04/20 05:38 Alkaline Phosphatase 58 U/L (45-117) 11/04/20 05:38 Lipase 69 U/L (73-393) L 10/31/20 21:23 Home Medications: ALPRAZolam [Alprazolam] 2 mg PO TID PRN 11/11/19 Cyanocobalamin [Vitamin B-12*] 1,000 mcg IM DIRECTED 11/11/19 Gabapentin 600 mg PO BID 11/11/19 Levothyroxine [Synthroid*] 150 mcg PO DAILY 11/11/19 Metoprolol Succinate [Toprol Xl*] 50 mg PO DAILY 11/11/19 Mupirocin Oint [Bactroban 2% Ointment*] 1 marisol TOP DAILY 11/11/19 Omeprazole [Prilosec] 40 mg PO DAILY 11/11/19 Venlafaxine HCl [Effexor*] 150 mg PO DAILY 11/11/19 Acyclovir 400 mg PO DAILY 11/01/20 Amitriptyline [Elavil*] 25 mg PO BID 11/01/20 Cyclobenzaprine [Flexeril*] 10 mg PO QID 11/01/20 Cyclosporine [Restasis] 1 drop EACH EYE 11/01/20 Estradiol [Estrace] 0.01 11/01/20 Magnesium Oxide 400 mg PO DAILY 11/01/20 Meclizine HCl 12.5 mg PO 11/01/20 Warfarin Sodium [Coumadin*] 5 mg PO 11/01/20 predniSONE [Prednisone] 20 mg PO SEECOM 28 Days #46 tablet 11/04/20 New Medications: predniSONE [Prednisone] 20 mg PO SEECOM 28 Days #46 tablet Physician Discharge Instructions: Your symptoms were likely caused by a Lupus flare up causing your delirium. Your inflammatory markers improved with high dose steroids. You are discharged with 4 weeks of a steroid taper. Your MRI/CT scans were normal. Please follow up with your PCP in 3-5 days. Please follow up with Rheumatology in the next few weeks. You need an INR checked on Saturday/Saturday - which you stated you have Saturday scheduled already. Your INR level may be higher than normal due to the steroids. Restart your 2.5mg Coumadin as prescribed on 11/05. Your pain was managed on lower dose pain medication than prescribed as outpatient ([place] 5mg). Please take the minimal dose needed to have some relief of your pain. Diet: Regular Activity: Fall precautions Followup: Unknown,U [Primary Care Provider] - Time spent managing pt's care (in minutes): 35
[2020-11-04 08:24] VITALS: BP 147/66; TEMP 98
[2020-11-04 08:32] LABS: Anisocytosis 1+; Blood Morphology Comment NOTED (NOT SEEN); Hypochromasia 1+; Platelet Estimate ADEQ; White Blood Cell Scan OK (OK)
[2020-11-04 08:33] LABS: Elliptocytes 1+; Poikilocytosis SLIGHT
[2020-11-04] MEDS: GABAPENTIN 300 MG CAP PO SCH (08:45)
[2020-11-04] MEDS: AMITRIPTYLINE 25 MG TAB PO SCH (08:45)
[2020-11-04] MEDS: HYDROCODONE/APAP 5/325 MG TAB PO PRN (08:45)
[2020-11-04] MEDS: ACYCLOVIR 400 MG TABLET PO SCH (08:46)
[2020-11-04] MEDS: MAGNESIUM OXIDE 400 MG TAB PO SCH (08:47)
[2020-11-04] MEDS: VENLAFAXINE HCL 75 MG TABLET PO SCH (08:51)
[2020-11-04] MEDS ORDERED: POTASSIUM CL SA 10 MEQ TAB PO ONE (09:00)
--- NOTE | 2020-11-04 10:19 | EEG ---
CHART: [id number] TEST ID#: [id number] DATE OF STUDY: 11/02/2020 THE EEG WAS RECORDED PORTABLE IN THE PATIENT'S ROOM ON A 17 CHANNEL MACHINE. ELECTRODES WERE APPLIED IN THE USUAL MANNER USING THE INTERNATIONAL 10-20 SYSTEM. THE WAKING BACKGROUND RHYTHM IN THIS RECORD CONSISTS OF FAIRLY WELL DEVELOPED AND FAIRLY WELL ORGANIZED WAVES OF 7 HZ., IN A WIDE DISTRIBUTION WHICH ATTENUATE NORMALLY WITH EYE OPENING. LOW-VOLTAGE 15-18 HZ ACTIVITY IS EXPRESSED IN THE FRONTAL REGIONS. MODERATE VOLTAGE 3-4 HZ ACTIVITY IS OCCASIONALLY EXPRESSED IN THE FRONTAL REGIONS. THERE ARE NO FOCAL OR LATERALIZING FEATURES. NO EPILEPTIFORM ACTIVITY APPEARS. SLEEP DID NOT OCCUR. HYPERVENTILATION WAS NOT PERFORMED. PHOTIC STIMULATION PRODUCED NO DRIVING BILATERALLY. IMPRESSION: THIS IS A MILDLY ABNORMAL EEG DUE TO A MILDLY SLOW BACKGROUND. THIS IS A NON-SPECIFIC FINDING INDICATING THE PRESENCE OF A MILD DIFFUSE DISTURBANCE IN CEREBRAL FUNCTION.
[2020-11-05 06:20] LABS: Albumin, (SPE) 3.1 g/dL (3.8-4.8); Alpha-1-Globulins 0.5 g/dL (0.2-0.3); Alpha-2-Globulins 0.6 g/dL (0.5-0.9); Gamma Globulins 1.1 g/dL (0.8-1.7); INTERPRETATION REPORT
== END 2020-11-04 10:03 | disposition home health service (06) | DRG 71 ==
LOC: ER 20:04 → ERHOLD 11-01 01:59 → 2ND 11-01 02:33
PROVIDERS: ADMIT Hospitalist; ATTEND Hospitalist
PROC: 009U3ZX Drainage of Spinal Canal, Percutaneous Approach, Diagnostic (ICD-10-PCS; principal; 2020-11-02)
DX: G93.49 Other encephalopathy (principal); M62.82 Rhabdomyolysis; F29 Unspecified psychosis not due to a substance or known physiological condition; I77.1 Stricture of artery; M32.9 Systemic lupus erythematosus, unspecified; M19.90 Unspecified osteoarthritis, unspecified site; G40.909 Epilepsy, unspecified, not intractable, without status epilepticus; G89.29 Other chronic pain; K21.9 Gastro-esophageal reflux disease without esophagitis; F41.9 Anxiety disorder, unspecified; I77.6 Arteritis, unspecified; F17.200 Nicotine dependence, unspecified, uncomplicated; I87.2 Venous insufficiency (chronic) (peripheral); F41.0 Panic disorder [episodic paroxysmal anxiety]; R41.0 Disorientation, unspecified; T38.0X5A Adverse effect of glucocorticoids and synthetic analogues, initial encounter; W18.30XA Fall on same level, unspecified, initial encounter; Z88.5 Allergy status to narcotic agent; Z88.0 Allergy status to penicillin; Z88.8 Allergy status to other drugs, medicaments and biological substances; Z91.048 Other nonmedicinal substance allergy status; Z86.73 Personal history of transient ischemic attack (TIA), and cerebral infarction without residual deficits; Z60.2 Problems related to living alone; Z79.01 Long term (current) use of anticoagulants; Z96.643 Presence of artificial hip joint, bilateral; Z95.2 Presence of prosthetic heart valve; Z96.651 Presence of right artificial knee joint; Z98.51 Tubal ligation status; Z79.890 Hormone replacement therapy; Z79.52 Long term (current) use of systemic steroids; Z79.899 Other long term (current) drug therapy; Z20.822 Contact with and (suspected) exposure to COVID-19
CPT/HCPCS: 36415; 70450; 70544; 70549; 70553; 72125; 77003; 80048; 80053; 80076; 80307; 81003; 81025; 82140; 82550; 82553; 83690; 83735; 84145; 84165; 84439; 84443; 84484; 85025; 85610; 85652; 85730; 86140; 86592; 87040; 88108; 93005; 95819; 96361; 96374; 97116; 97161; 99285; A9577; J2405; J2930; J3475; J7030; U0003

== ENCOUNTER 2021-05-09 19:28 | Emergency (ER) | payer OTHER ==
[2021-05-09] MEDS ORDERED: FENTANYL CITR 100 MCG/2 ML ONE (20:57)
[2021-05-09] MEDS ORDERED: NA CHLORIDE 0.9% 1,000 ML ONE (21:06)
[2021-05-09] MEDS ORDERED: ONDANSETRON 4 MG/2 ML VIAL ONE (21:06)
--- NOTE | 2021-05-09 21:58 | RAD REPORT ---
EXAM DESCRIPTION: RAD - Chest Single View - 05/09/2021 9:08 pm CLINICAL HISTORY: FEVER, fall COMPARISON: Portable May 08 TECHNIQUE: AP portable chest image was obtained 05/09/2021 9:08 pm . FINDINGS: No acute lung parenchymal process. Interstitial pattern matches comparison. Left-side PICC line has not changed. Sternotomy wires are in place. Cardiac valve surgical changes are noted. Heart and vasculature are normal. No measurable pleural effusion and no pneumothorax. Degenerative right s houlder joint findings present. No acute bone finding. No acute aortic findings suspected. IMPRESSION: No acute cardiopulmonary process. No significant change from comparison study.
[2021-05-09 22:01] LABS: Absolute Lymphocytes (CBC) 0.9 K/uL (0.7-4.9); Basophils % 0.1 % (0-1.3); Hematocrit 31.8 % (36.0-45.0); MPV 8.8 fL (7.6-11.3); RBC Red Blood Cell Count 3.93 M/uL (3.86-4.86)
--- NOTE | 2021-05-09 22:03 | RAD REPORT ---
EXAM DESCRIPTION: RAD - Foot Right 3 View - 05/09/2021 9:07 pm CLINICAL HISTORY: PAIN COMPARISON: Foot Right Wo Cont dated 03/28/2021; Foot Right 3 View dated 03/22/2021 FINDINGS: March 28 MRI study showed osteomyelitis findings of first toe. Bone loss changes and join t space narrowing changes are progressive at the IP joint of the first toe. There is a lateral sublux ation of the first distal phalanx that is new from prior imaging. Advanced degenerative changes to th e IP joints with advanced degenerative changes to the MTP joints stable. Subtle erosive changes are s een along the medial margin of the first proximal phalanx and first distal phalanx near the IP joint. Wound is present along the medial margin soft tissues. No air or foreign body in the soft tissues. IMPRESSION: Progressive osteomyelitis changes in and around the IP joint of the first toe when jonny red March 22 imaging.
[2021-05-09 22:05] LABS: Protime INR 3.76
[2021-05-10 00:09] LABS: ALT/SGPT 18 U/L (12-78); AST/SGOT 36 U/L (15-37); Albumin 3.1 g/dL (3.4-5.0); Alkaline Phosphatase 83 U/L (45-117); BUN Blood Urea Nitrogen 6 mg/dL (7-18); Bicarbonate 26 mmol/L (21-32); Bilirubin Direct 0.1 mg/dL (0-0.2); Bilirubin Total 0.4 mg/dL (0.2-1.0); Creatine Phosphokinase 41 U/L (26-192); Glucose Level 149 mg/dL (74-106); Potassium 3.2 mmol/L (3.5-5.1); Protein, Total 7.2 g/dL (6.4-8.2); Sodium Level 139 mmol/L (136-145); Troponin (Emerg Dept Use Only) < 0.02 ng/mL (0.0-0.045)
[2021-05-10 00:10] LABS: Amylase 21 U/L (25-115); Lipase 38 U/L (73-393)
[2021-05-10 00:11] LABS: CKMB Creatine Kinase MB < 1.0 ng/mL (1.0-3.6)
[2021-05-10] MEDS ORDERED: Meropenem 1000 MG/VIAL IV ONE (01:22)
[2021-05-10] MEDS ORDERED: FENTANYL CITR 100 MCG/2 ML ONE (01:22)
[2021-05-10] MEDS ORDERED: NA CHLORIDE 0.9% 100 ML ONE (01:23)
--- NOTE | 2021-05-10 02:29 | ER ---
Nurse's Notes [facility] Name: Kim Aldana Age: 60 yrs Sex: Female : 1960 Arrival Date: 05/09/2021 Time: 19:33 Bed 7 Private MD: Diagnosis: Other chronic osteomyelitis, right ankle and foot-right great toe Presentation: 05/09 20:02 Chief complaint: Patient states: Pt states fallx x 2 yesterday. Denies LOC, lost df1 balance. Ebola Screen: Patient negative for fever greater than or equal to 101.5 degrees Fahrenheit, and additional compatible Ebola Virus Disease symptoms Patient denies exposure to infectious person. Patient denies travel to an Ebola-affected area in the 21 days before illness onset. Initial Sepsis Screen: Does the patient meet any 2 criteria? No. Patient's initial sepsis screen is negative. Risk Assessment: Do you want to hurt yourself or someone else? Patient reports no desire to harm self or others. Onset of symptoms was May 2021. 20:02 Method Of Arrival: Wheelchair df1 20:02 Acuity: CABRERA 3 df1 20:05 Note Pt states fall x 2 yesterday. Hit head, denies LOC. C/O back pain and head. [place] df1 10/325 mg taken 45 min [employer]. 20:35 Initial Sepsis Screen: Does the patient meet any 2 criteria? No. Patient's initial cw2 sepsis screen is negative. Triage Assessment: 20:34 General: Appears in no apparent distress. Behavior is calm, cooperative. cw2 Historical: - Allergies: 19:55 Aspirin; df1 19:55 Compazine; df1 19:55 Methadone; df1 19:55 Morphine; df1 19:55 Neurontin; df1 19:55 PENICILLINS; df1 19:55 Phenergan; df1 19:55 plastic tape; df1 19:55 Suboxone; df1 - PMHx: 19:55 arterial insuficiency; Back pain; Chronic pain; cerebritis; lumbar radiculitis; chest df1 pain; menopause; osteomyelitis; dejenteritive joint disease; Panic Attacks; Seizures; hypersomnia; Lupus; esophageal reflux; Dyspepsia; fatigue; pulmonary edema; Tachycardia; TIA; venous insufficiency; - PSHx: 19:55 hip replacement bilateral; bowel resection; breast reduction bilateral; right total df1 knee; - Immunization history:: Client reports receiving the 2nd dose of the Covid vaccine. - Social history:: Smoking status: Patient/guardian denies using tobacco, but has a distant history of tobacco abuse. Screenin:38 Abuse screen: Denies threats or abuse. Nutritional screening: No deficits noted. cw2 Tuberculosis screening: No symptoms or risk factors identified. Fall Risk Fall in past 12 months (25 points). IV access (20 points). Assessment: 20:35 General: Appears in no apparent distress. Behavior is calm, cooperative. Pain: cw2 Complains of pain in right foot Pain does not radiate. Pain currently is 8 out of 10 on a pain scale. Quality of pain is described as sharp, Pain began 1 day ago. Neuro: No deficits noted. Cardiovascular: No deficits noted. 20:38 Respiratory: No deficits noted. GI: No signs and/or symptoms were reported involving cw2 the gastrointestinal system. : No deficits noted. 21:33 Reassessment: PICC location verified, site dressed appropriately and looks free from wg infection. Blood drawn with ease and flushed with ease. Reassessment: Patient appears in no apparent distress at this time. Patient and/or family updated on plan of care and expected duration. Pain level reassessed. Patient is alert, oriented x 3, equal unlabored respirations, skin warm/dry/pink. 21:45 Pain:. wg 23:08 Reassessment: No changes from previously documented assessment. Patient is alert, wg oriented x 3, equal unlabored respirations, skin warm/dry/pink. 05/10 01:33 Reassessment: Pt tolerated first dose of antibiotic well. No fevers or signs of wg reaction. 01:36 Reassessment: Patient appears in no apparent distress at this time. No changes from wg previously documented assessment. Patient and/or family updated on plan of care and expected duration. Pain level reassessed. Patient is alert, oriented x 3, equal unlabored respirations, skin warm/dry/pink. 02:20 Reassessment: Patient appears in no apparent distress at this time. No changes from wg previously documented assessment. Patient and/or family updated on plan of care and expected duration. Pain level reassessed. Patient is alert, oriented x 3, equal unlabored respirations, skin warm/dry/pink. Patient states feeling better. Vital Signs: 05/09 20:02 BP 125 / 83; Pulse 107; Resp 18; Temp 97.9; Pulse Ox 100% on R/A; Weight 63.5 kg; df1 Height 5 ft. 6 in. (167.64 cm); Pain 10; 21:46 BP 104 / 71; Pulse 88; Resp 17; Pulse Ox 99% on R/A; Pain 4/10; wg 22:24 BP 141 / 71; Pulse 105; Resp 18; Pulse Ox 100% on R/A; Pain 1010; wg 05/10 01:34 BP 115 / 73; Pulse 92; Resp 18; Temp 98.2; Pulse Ox 100% on R/A; Pain 2/10; wg 02:30 BP 119 / 75; Pulse 90; Resp 18; Temp 98.5; Pulse Ox 99% on R/A; Pain 1/10; wg 05/09 20:02 Body Mass Index 22.60 (63.50 kg, 167.64 cm) df1 Laina Coma Score: 05/09 20:38 Eye Response: spontaneous(4). Verbal Response: oriented(5). Motor Response: obeys cw2 commands(6). Total: 15. ED Course: 19:33 Patient arrived in ED. wm 20:05 Triage completed. df1 20:15 Brigido Huang NP is PHCP. pm1 20:15 Ajay Mukherjee MD is Attending Physician. pm1 20:34 Jonathan Bond, MELQUIADES is Primary Nurse. cw2 20:39 Patient has correct armband on for positive identification. Allergy band placed. Placed cw2 in gown. Bed in low position. Call light in reach. Side rails up X2. Door closed. Noise minimized. Lights dimmed. Moved to private room. 20:40 No provider procedures requiring assistance completed. cw2 21:07 Foot Right 3 View XRAY In Process Unspecified. EDMS 21:08 Chest Single View XRAY In Process Unspecified. EDMS 21:32 Flu Sent. wg 21:32 Amylase, Serum Sent. wg 21:32 Basic Metabolic Panel Sent. wg 21:32 Blood Culture Adult (2) Sent. wg 21:32 CBC with Diff Sent. wg 21:32 CPK Sent. wg 21:32 Ckmb Sent. wg 21:32 LFT's Sent. wg 21:32 Lactate Sent. wg 21:32 Lipase Sent. wg 21:32 Procalcitonin Sent. wg 21:32 Protime (+inr) Sent. wg 21:33 Ptt, Activated Sent. wg 21:33 Troponin (emerg Dept Use Only) Sent. Administered Medications: 19:10 Drug: fentaNYL (PF) 25 mcg Route: IVP; Infused Over: 2 mins; Site: PICC; 05/10 01:35 Follow up: Response: No adverse reaction 05/09 19:10 Drug: Zofran (Ondansetron) 4 mg Route: IVP; Infused Over: 2 mins; Site: PICC; 05/10 01:35 Follow up: Response: No adverse reaction 05/09 19:10 Drug: NS 0.9% 1000 ml Route: IV; Rate: 1000 ml; Infused Over: 30 mins; Site: PICC; 05/10 00:50 Drug: Meropenem 1 grams Route: IV; Rate: calculated rate; Infused Over: 30 mins; Site: PICC; 02:00 Follow up: Response: No adverse reaction; IV Status: Completed infusion; IV Intake: wg 100ml 00:50 Drug: fentaNYL (PF) 25 mcg Route: IVP; Infused Over: 2 mins; Site: [facility]; 01:34 Follow up: Response: No adverse reaction; Pain is decreased 02:46 Follow up: Response: No adverse reaction Intake: 02:00 IV: 100ml; Total: 100ml. Outcome: 02:28 Discharge ordered by MD. pm1 02:45 Discharged to home ambulatory. 02:45 Condition: stable 02:45 Discharge instructions given to patient, Instructed on discharge instructions, follow up and referral plans. Demonstrated understanding of instructions, follow-up care, medications. 02:47 Patient left the ED. Signatures: Dispatcher [employer] EDMS Brigido Huang NP FRONT ELEVATOR OPERATOR pm1 Rosalia Jordan Liam, RN Miroslava Paz df1 Jonathan Bond RN RN cw2 Corrections: (The following items were deleted from the chart) 05/09 20:35 20:02 Coronavirus screen: Vaccine status: Patient reports receiving the 2nd dose of the cw2 covid vaccine. Client denies travel out of the [place] in the last 14 days. The client reports previous COVID testing was negative. Date of collection: August 2020 df1 21:59 21:32 CORONAVIRUS+ drawn and sent. EDMS
--- NOTE | 2021-05-10 02:29 | EDPHYS ---
Physician Documentation [facility] Name: Kim Aldana Age: 60 yrs Sex: Female : 1960 Arrival Date: 05/09/2021 Time: 19:33 Bed 7 Private MD: ED Physician Ajay Mukherjee HPI: 05/09 18:39 This 60 yrs old Female presents to ER via Wheelchair with complaints of Fall. pm1 18:39 Details of fall: The patient fell from an upright position, while walking. Onset: The pm1 symptoms/episode began/occurred yesterday. Associated injuries: The patient sustained no obvious injury. The patient has experienced similar episodes in the past, multiple times, Patient without toes to left foot and currently has chronic osteomyelitis to right great toe. The patient has been recently seen by a physician: with similar presenting complaints, Patient prescribed meropenem IV therapy at home for osteomyelitis of right great toe. Patient had PICC line placed yesterday for the IV therapy. Patient with fever last night and home health nurse instructed the patient to report to the ER for medical clearance to start IV antibiotics. Historical: - Allergies: 19:55 Aspirin; df1 19:55 Compazine; df1 19:55 Methadone; df1 19:55 Morphine; df1 19:55 Neurontin; df1 19:55 PENICILLINS; df1 19:55 Phenergan; df1 19:55 plastic tape; df1 19:55 Suboxone; df1 - PMHx: 19:55 arterial insuficiency; Back pain; Chronic pain; cerebritis; lumbar radiculitis; chest df1 pain; menopause; osteomyelitis; dejenteritive joint disease; Panic Attacks; Seizures; hypersomnia; Lupus; esophageal reflux; Dyspepsia; fatigue; pulmonary edema; Tachycardia; TIA; venous insufficiency; - PSHx: 19:55 hip replacement bilateral; bowel resection; breast reduction bilateral; right total df1 knee; - Immunization history:: Client reports receiving the 2nd dose of the Covid vaccine. - Social history:: Smoking status: Patient/guardian denies using tobacco, but has a distant history of tobacco abuse. ROS: 18:39 Cardiovascular: Negative for chest pain, palpitations, and edema, Respiratory: Negative pm1 for shortness of breath, cough, wheezing, and pleuritic chest pain, Abdomen/GI: Negative for abdominal pain, nausea, vomiting, diarrhea, and constipation, Back: Negative for injury and pain. 18:39 Skin: Negative for injury, rash, and discoloration, Neuro: Negative for headache, weakness, numbness, tingling, and seizure. 18:39 Constitutional: Positive for fever, Negative for poor PO intake. 18:39 MS/extremity: Positive for pain, of the right foot, Negative for decreased range of motion, deformity. 18:39 All other systems are negative. Exam: 18:39 Constitutional: This is a well developed, well nourished patient who is awake, alert, pm1 and in no acute distress. Head/Face: Normocephalic, atraumatic. 18:39 Eyes: Exam is negative for acute changes, Extraocular movements: no acute changes, Sclera: no acute changes, icterus, is not appreciated. 18:39 ENT: Exam is negative for acute changes, Mouth: Lips: normal, moist, Oral mucosa: normal, pink and intact, moist. 18:39 Cardiovascular: Exam negative for acute changes, Rate: normal, Rhythm: regular, Pulses: no pulse deficits are appreciated. 18:39 Respiratory: Exam negative for acute changes, respiratory distress, shortness of breath. 18:39 Abdomen/GI: Exam negative for acute changes, Inspection: abdomen appears normal, Palpation: abdomen is soft and non-tender, in all quadrants. 18:39 Skin: Appearance: normal except for affected area, cellulitis, that is minimal, on the medial aspect of right great toe. 18:39 Neuro: Exam negative for acute changes, Orientation: is normal, Motor: is normal, moves all fours, Sensation: is normal, no obvious gross deficits. Vital Signs: 20:02 BP 125 / 83; Pulse 107; Resp 18; Temp 97.9; Pulse Ox 100% on R/A; Weight 63.5 kg; df1 Height 5 ft. 6 in. (167.64 cm); Pain 10/10; 21:46 BP 104 / 71; Pulse 88; Resp 17; Pulse Ox 99% on R/A; Pain 4/10; wg 22:24 BP 141 / 71; Pulse 105; Resp 18; Pulse Ox 100% on R/A; Pain 10/10; wg 05/10 01:34 BP 115 / 73; Pulse 92; Resp 18; Temp 98.2; Pulse Ox 100% on R/A; Pain 2/10; wg 02:30 BP 119 / 75; Pulse 90; Resp 18; Temp 98.5; Pulse Ox 99% on R/A; Pain 1/10; wg 05/09 20:02 Body Mass Index 22.60 (63.50 kg, 167.64 cm) df1 Laina Coma Score: 05/09 20:38 Eye Response: spontaneous(4). Verbal Response: oriented(5). Motor Response: obeys cw2 commands(6). Total: 15. MDM: 20:23 Patient medically screened. pm1 05/10 00:45 ED course: Patient with WBC procalcitonin and lactate within normal limits. Patient pm1 nontoxic-appearing. Patient with chronic osteomyelitis to right great toe and planned IV therapy of meropenem by infectious disease physician. Therefore will discharge the patient home after infusion of first meropenem dosage. Patient can continue meropenem from home health nurse as prescribed by infectious disease. 00:53 Data reviewed: vital signs. Data interpreted: Pulse oximetry: on room air is 100 %. pm1 Interpretation: normal. 02:18 Counseling: I had a detailed discussion with the patient and/or guardian regarding: the pm1 historical points, exam findings, and any diagnostic results supporting the discharge/admit diagnosis, lab results, radiology results, the need for outpatient follow up, to return to the emergency department if symptoms worsen or persist or if there are any questions or concerns that arise at home. 05/09 20:26 Order name: Amylase, Serum; Complete Time: 00: pm1 05/09 20:26 Order name: Basic Metabolic Panel; Complete Time: 00: pm05/09 20:26 Order name: Blood Culture Adult (2) pm1 05/09 20:26 Order name: CBC with Diff; Complete Time: 22:20 pm1 05/09 20:26 Order name: CPK; Complete Time: 00: pm1 05/09 20: Order name: Ckmb; Complete Time: 00: pm1 05/09 20:26 Order name: LFT's; Complete Time: 00:27 pm1 05/09 20:26 Order name: Lactate; Complete Time: 22:20 pm1 05/09 20:26 Order name: Lipase; Complete Time: 00:27 pm1 05/09 20:26 Order name: Procalcitonin; Complete Time: 23:57 pm1 05/09 20:26 Order name: Protime (+inr); Complete Time: 22:20 pm1 05/09 20:26 Order name: Ptt, Activated; Complete Time: 22:20 pm1 05/09 20:26 Order name: Troponin (emerg Dept Use Only); Complete Time: 00:27 pm1 05/09 20:26 Order name: Foot Right 3 View XRAY; Complete Time: 22:20 pm1 05/09 20:26 Order name: Chest Single View XRAY; Complete Time: 22:20 pm1 05/09 20:26 Order name: Cardiac monitoring; Complete Time: 20:33 pm1 05/09 20:26 Order name: EKG - Nurse/Tech; Complete Time: 20:38 pm1 05/09 20:26 Order name: Labs collected and sent; Complete Time: 21:32 pm1 05/09 20:26 Order name: O2 Per Protocol; Complete Time: 20:33 pm1 05/09 20:26 Order name: O2 Sat Monitoring; Complete Time: 20:33 pm1 05/09 20:26 Order name: Flu; Complete Time: 22:26 pm1 05/09 21:59 Order name: SARS-COV-2 RT PCR; Complete Time: 23:11 EDMS Administered Medications: 05/09 19:10 Drug: fentaNYL (PF) 25 mcg Route: IVP; Infused Over: 2 mins; Site: [facility]; 05/10 01:35 Follow up: Response: No adverse reaction 05/09 19:10 Drug: Zofran (Ondansetron) 4 mg Route: IVP; Infused Over: 2 mins; Site: [facility]; 05/10 01:35 Follow up: Response: No adverse reaction 05/09 19:10 Drug: NS 0.9% 1000 ml Route: IV; Rate: 1000 ml; Infused Over: 30 mins; Site: PICC; 05/10 00:50 Drug: Meropenem 1 grams Route: IV; Rate: calculated rate; Infused Over: 30 mins; Site: [facility]; 02:00 Follow up: Response: No adverse reaction; IV Status: Completed infusion; IV Intake: 100ml 00:50 Drug: fentaNYL (PF) 25 mcg Route: IVP; Infused Over: 2 mins; Site: PICC; wg 01:34 Follow up: Response: No adverse reaction; Pain is decreased wg 02:46 Follow up: Response: No adverse reaction wg Disposition Summary: 05/10/21 02:28 Discharge Ordered Location: Home pm1 Problem: new pm1 Symptoms: have improved pm1 Condition: Stable pm1 Diagnosis - Other chronic osteomyelitis, right ankle and foot - right great toe pm1 Followup: pm1 - With: Emergency Department - When: As needed - Reason: Worsening of condition Followup: pm1 - With: Private Physician - When: 2 - 3 days - Reason: Recheck today's complaints, Continuance of care, Re-evaluation by your physician Discharge Instructions: - Discharge Summary Sheet pm1 - Osteomyelitis, Adult pm1 Forms: - Medication Reconciliation Form pm1 - Thank You Letter pm1 - Antibiotic Education pm1 - Prescription Opioid Use pm1 Addendum: 05/11/2021 03:01 Co-signature as Attending Physician, Ajay Mukherjee MD PA/HARPOONER's history reviewed, m a2 patient interviewed, and examined. I agree with assessment and care plan and confirm the diagnosis (es) above. Signatures: Dispatcher [employer] EDTX Brigido Huang, HARPOONER HARPOONER pm1 Ajay Mukherjee MD MD ma2 Spencer Weeks, MELQUIADES Miroslava Paz df1 Corrections: (The following items were deleted from the chart) 05/09 21:59 20:27 CORONAVIRUS+MR.LAB.BRZ ordered. EDTX EDTX 05/10 02:30 02:28 Osteomyelitis, unspecified pm1 pm1
[2021-05-10 02:59] VITALS: BP 119/75; TEMP 98.5; O2SAT 99
--- NOTE | 2021-05-10 16:44 | EKG ---
Test Date: 2021-05-09 Test Time: 20:37:49 Service Clerk: GRETEL MEASUREMENT RESULTS: Intervals: Rate: 103 OK: 156 QRSD: 86 QT: 372 QTc: 487 [place]: P: 53 OK: 156 QRS: 33 T: 96 INTERPRETIVE STATEMENTS: Sinus tachycardia T wave abnormality, consider inferior ischemia Abnormal ECG Compared to ECG 10/31/2020 20:45:48 T-wave abnormality now present Possible ischemia now present Sinus rhythm no longer present Sinus arrhythmia no longer present Electronically Signed On 05-10-21 16:42:46 CDT by Rolan Angel
== END 2021-05-10 02:47 | disposition home or self-care (01) ==
LOC: ER 19:28
DX: M86.671 Other chronic osteomyelitis, right ankle and foot (principal); Z20.822 Contact with and (suspected) exposure to COVID-19; Z88.0 Allergy status to penicillin; Z88.1 Allergy status to other antibiotic agents; Z88.5 Allergy status to narcotic agent; Z88.6 Allergy status to analgesic agent; Z88.8 Allergy status to other drugs, medicaments and biological substances; Z91.048 Other nonmedicinal substance allergy status
CPT/HCPCS: 96365; 93005; 87040 ×2; 85025; 80048; 36415; 82150; 82550; 85610; 80076; 83605; 85730; 84484; 82553; 83690; 84145; 87804 ×2; 71045; 73630; 96375; 99284; U0003; J3010 ×2; J2185; J7030; J2405

== ENCOUNTER 2021-05-27 13:30 | Inpatient (IN) | payer OTHER ==
[2021-05-27] MEDS ORDERED: LORazepam 2 MG/ML VIAL ONE ×2 (14:00→15:02)
[2021-05-27] MEDS ORDERED: DIPHENHYDRAMINE 50 MG/ML VIAL ONE (14:00)
[2021-05-27 14:38] LABS: Absolute Lymphocytes (CBC) 1.2 K/uL (0.7-4.9); Basophils % 0.2 % (0-1.3); Hematocrit 37.8 % (36.0-45.0); MPV 8.6 fL (7.6-11.3); RBC Red Blood Cell Count 4.86 M/uL (3.86-4.86)
[2021-05-27 14:39] LABS: Protime INR 1.51
[2021-05-27 14:56] LABS: ALT/SGPT 29 U/L (12-78); AST/SGOT 48 U/L (15-37); Albumin 3.7 g/dL (3.4-5.0); Alkaline Phosphatase 102 U/L (45-117); BUN Blood Urea Nitrogen 7 mg/dL (7-18); Bicarbonate 27 mmol/L (21-32); Bilirubin Direct 0.2 mg/dL (0-0.2); Bilirubin Total 0.8 mg/dL (0.2-1.0); Creatine Phosphokinase 171 U/L (26-192); Glucose Level 93 mg/dL (74-106); Protein, Total 8.6 g/dL (6.4-8.2); Sodium Level 135 mmol/L (136-145); Troponin (Emerg Dept Use Only) < 0.02 ng/mL (0.0-0.045)
--- NOTE | 2021-05-27 15:26 | RAD REPORT ---
EXAM DESCRIPTION: CT - Head C Spine Cap W Con - 05/27/2021 3:03 pm CLINICAL HISTORY: AMS, found on ground COMPARISON: Head C Spine Cap W Con dated 11/10/2019; Head C Spine Cap Wo Con dated 08/06/2019 TECHNIQUE: CT head without contrast. CT cervical spine without contrast with coronal and sagittal reformatted images. CT chest, abdomen and pelvis with coronal and sagittal reformatted images of the spine. All CT scans are performed using dose optimization technique as appropriate and may include automated exposure control or mA/KV adjustment according to patient size. FINDINGS: CT HEAD WITHOUT CONTRAST: No intracranial hemorrhage, hydrocephalus or extra-axial fluid collection. No acute large vascular te rritory infarct. Remote left reynoso radiata infarct. Mild chronic small vessel ischemic changes. The paranasal sinuses and mastoids are clear. The calvarium is intact. CT CERVICAL SPINE WITHOUT CONTRAST: No fracture or subluxation. The prevertebral soft tissues are normal in thickness. CT CHEST, ABDOMEN, PELVIS: Thorax: Chest Wall: No abnormal mass Lungs: No acute abnormality. Limited evaluation due to motion artifact. Pleura: No effusions or pneumothorax. [place]/Mediastinum: No lymphadenopathy. Aorta/Pulmonary Arteries: Unremarkable Heart: Normal size. Coronary artery calcifications. Aortic and mitral valve replacements. Abdomen/Pelvis: Liver: Hepatic steatosis. Biliary: Cholelithiasis. Stomach: No significant focal abnormality. Duodenum: No significant focal abnormality. Pancreas: No significant abnormality. Spleen: No significant abnormality. Adrenal: No suspicious lesions. Kidney/ureter: No hydronephrosis. No renal calculi. Too small to characterize and/or benign appearing renal lesions are noted. Retroperitoneum: No retroperitoneal adenopathy. Vascular: No aneurysm. Bowel: No significant focal abnormality. Right hemicolectomy. Peritoneum: No ascites or free air. Bladder: Grossly unremarkable. Reproductive: No adnexal masses. Bones: No acute fracture. Bilateral hip arthroplasties. No displaced fractures identified. Note that there is significant limitations due to motion artifact. Other: n/a IMPRESSION: Negative for acute traumatic findings.
[2021-05-27] MEDS ORDERED: HALOPERIDOL LACT 5 MG/ML INJ ONE (15:41)
[2021-05-27 15:54] LABS: Urine Blood Trace-intact (Negative); Urine Glucose Negative (Negative); Urine Protein 1+ (Negative); Urine Specific Gravity 1.015 (1.005-1.030); Urine pH 8.5 (5.0-7.0)
[2021-05-27 16:17] LABS: Barbiturates NEGATIVE (NEGATIVE); Benzodiazepines POSITIVE (NEGATIVE); Cocaine NEGATIVE (NEGATIVE); METHAMPHETAM NEGATIVE (NEGATIVE); Methadone NEGATIVE (NEGATIVE); Opiates NEGATIVE (NEGATIVE); Phencyclidine NEGATIVE (NEGATIVE); THC Cannibis NEGATIVE (NEGATIVE)
--- NOTE | 2021-05-27 16:20 | EDPHYS ---
Physician Documentation [facility] Name: Kim Aldana Age: 60 yrs Sex: Female : 1960 Arrival Date: 05/27/2021 Time: 13:34 Bed 7 Private MD: ED Physician Ajay Mukherjee HPI: 05/27 13:45 This 60 yrs old Female presents to ER via EMS with complaints of Altered cp Mental Status. 13:45 The patient presents with confusion. Onset: The symptoms/episode began/occurred at an cp unknown time. last known normal was yesterday. Possible causes: drug use, narcotics. Associated signs and symptoms: Pertinent positives: combativeness, confusion, Pertinent negatives: fever. Current symptoms: In the emergency department the patient's symptoms are unchanged from the initial presentation, despite EMS interventions. Patient's baseline: Neuro: alert and fully oriented, Motor: no deficits, Ambulation: walks without assistance, Speech: normal. Historical: - Allergies: 13:43 Aspirin; jw6 13:43 Compazine; jw6 13:43 Methadone; jw6 13:43 Morphine; jw6 13:43 Neurontin; jw6 13:43 PENICILLINS; jw6 13:43 Phenergan; jw6 13:43 plastic tape; jw6 13:43 Suboxone; jw6 - PMHx: 13:43 arterial insuficiency; Back pain; cerebritis; chest pain; Chronic pain; dejenteritive jw6 joint disease; Dyspepsia; esophageal reflux; fatigue; hypersomnia; lumbar radiculitis; Lupus; menopause; osteomyelitis; Panic Attacks; pulmonary edema; Seizures; Tachycardia; TIA; venous insufficiency; - PSHx: 13:43 bowel resection; breast reduction bilateral; hip replacement bilateral; right total jw6 knee; - Immunization history:: unable to obtain. - Social history:: Smoking status: unknown. ROS: 13:50 Constitutional: Negative for fever. cp 13:50 Neuro: Positive for altered mental status. cp 13:50 Unable to obtain ROS due to altered mental status. Exam: 13:55 Constitutional: The patient appears in no acute distress, alert, awake, cp non-diaphoretic, non-toxic, well developed, frail. 13:55 Head/Face: Normocephalic, atraumatic. cp 13:55 Eyes: Periorbital structures: appear normal, Pupils: equal, round, and reactive to light and accomodation, Extraocular movements: intact throughout, Conjunctiva: normal, no exudate, no injection, Sclera: no appreciated abnormality, Lids and lashes: appear normal, bilaterally. 13:55 ENT: External ear(s): are unremarkable, Nose: is normal, Mouth: Lips: dry, Oral mucosa: dry, Posterior pharynx: Airway: no evidence of obstruction, patent. 13:55 Neck: ROM/movement: is normal, is supple, without pain, no range of motions limitations, no meningismus. 13:55 Chest/axilla: Inspection: normal, Palpation: is normal, no crepitus, no tenderness. 13:55 Cardiovascular: Rate: tachycardic, Rhythm: regular. 13:55 Respiratory: the patient does not display signs of respiratory distress, Respirations: normal, no use of accessory muscles, no retractions, labored breathing, is not present, Breath sounds: are clear throughout, no decreased breath sounds, no stridor, no wheezing. 13:55 Abdomen/GI: Inspection: abdomen appears normal, Palpation: abdomen is soft and non-tender, in all quadrants. 13:55 Skin: no rash present. 13:55 Neuro: Orientation: Not oriented to person, place, situation, Mentation: confused, Motor: moves all fours, strength is normal. Vital Signs: 13:40 BP 146 / 82; Pulse 121; Resp 20; Temp 98.6; Pulse Ox 98% on R/A; Pain 0/10; jw6 13:48 BP 146 / 72; Pulse 118; Resp 20; Temp 98.6; Pulse Ox 95% on R/A; jw6 16:06 BP 170 / 95; Pulse 115; Resp 22; Pulse Ox 99% on R/A; jw6 17:19 BP 173 / 83; Pulse 117; Resp 28; Pulse Ox 99% on R/A; jw6 18:22 BP 156 / 94; Pulse 119; Resp 26; Pulse Ox 98% on R/A; jw6 18:22 Temp 99.2(O); jw6 20:04 BP 158 / 80; Pulse 127; Resp 19; Temp 101.3(A); Pulse Ox 98% ; lp1 20:15 Temp 102.8(R); lp1 MDM: 13:39 Patient medically screened. cp 14:00 Differential Diagnosis: CVA, electrolyte abnormality, intracranial bleed, overdose, cp pneumonia, sepsis, UTI, volume depletion. 16:20 Data reviewed: vital signs, nurses notes, lab test result(s), radiologic studies, CT cp scan. 16:20 Counseling: I had a detailed discussion with the patient and/or guardian regarding: the cp historical points, exam findings, and any diagnostic results supporting the discharge/admit diagnosis, lab results, radiology results, the need for further work-up and treatment in the hospital. Response to treatment: the patient's symptoms have mildly improved after treatment, and as a result, I will admit patient. Physician consultation: Colby Lafleur was called at 16:15, was contacted at 16:15, regarding admission, to the telemetry unit. patient's condition, and will see patient in ED, shortly. 05/27 13:38 Order name: Basic Metabolic Panel cp 05/27 13:38 Order name: Blood Culture Adult (2) cp 05/27 13:38 Order name: CBC with Diff cp 05/27 13:38 Order name: CPK cp 05/27 13:38 Order name: LFT's cp 05/27 13:38 Order name: Lactate cp 05/27 13:38 Order name: Procalcitonin; Complete Time: 15:46 cp 05/27 13:38 Order name: Protime (+inr); Complete Time: 15:10 cp 05/27 15:10 Interpretation: Abnormal: PT 17.4. cp 05/27 13:38 Order name: Ptt, Activated; Complete Time: 15:10 cp 05/27 13:38 Order name: Troponin (emerg Dept Use Only); Complete Time: 15:10 cp 05/27 13:38 Order name: Urine Culture cp 05/27 13:38 Order name: Urine Microscopic Only; Complete Time: 17:53 cp 05/27 17:53 Interpretation: Normal except: UWBC 5-10; URBC 5-10. cp 05/27 13:38 Order name: UDS; Complete Time: 16:19 cp 05/27 13:39 Order name: Basic Metabolic Panel; Complete Time: 15:10 EDMS 05/27 15:26 Interpretation: Normal except: NA 135; K 3.0; CL 95; GFR 75. 05/27 13:38 Order name: Chest Single View XRAY; Complete Time: 17:53 cp 05/27 13:38 Order name: CT Traumagram (Head C Spine CAP W Con); Complete Time: 15:46 cp 05/27 15:47 Interpretation: Report reviewed. 05/27 13:39 Order name: Blood Culture EDDC 05/27 13:39 Order name: CBC with Automated Diff; Complete Time: 15:10 EDDC 05/27 15:26 Interpretation: Normal except: MCV 77.7; MCH 25.0; PLT 422; RDW 16.2; LEENA% 76.2. cp 05/27 13:39 Order name: Creatine Phosphokinase; Complete Time: 15:10 EDDC 05/27 13:39 Order name: Liver (Hepatic) Function; Complete Time: 15:10 EDDC 05/27 15:48 Interpretation: Normal except: AST 48; TP 8.6; GLOB 4.9; A/G 0.8. 05/27 13:39 Order name: Lactate; Complete Time: 15:24 EDDC 05/27 15:24 Interpretation: Abnormal: LAC 2.1. cp 05/27 15:54 Order name: Urine Dipstick-Ancillary; Complete Time: 16:13 EDDC 05/27 16:13 Interpretation: Normal except: UKET 2+; UBLD Trace-intact; UPH 8.5; UPROT 1+. 05/27 16:34 Order name: SARS-COV-2 RT PCR (Document "Date of Onset" if Symptomatic) eb 05/27 18:34 Order name: CREATININE WHOLE BLOOD EDDC 05/27 18:50 Order name: Lactate Sepsis 2 HR Follow-up EDDC 05/27 13:38 Order name: Accucheck; Complete Time: 15:48 cp 05/27 13:38 Order name: Cardiac monitoring; Complete Time: 13:40 cp 05/27 13:38 Order name: Cath; Complete Time: 15:47 cp 05/27 13:38 Order name: EKG - Nurse/Tech; Complete Time: 20:31 cp 05/27 13:38 Order name: IV Saline Lock - Large Bore; Complete Time: 14:26 05/27 13:38 Order name: Labs collected and sent; Complete Time: 14:26 10/23 13:38 Order name: O2 Per Protocol; Complete Time: 13:39 cp 05/27 13:38 Order name: O2 Sat Monitoring; Complete Time: 13:39 cp 05/27 13:38 Order name: Urine Dipstick-Ancillary (obtain specimen); Complete Time: 15:47 cp Administered Medications: 13:39 Drug: Ativan (LORazepam) 1 mg Route: IM; Site: left deltoid; jw6 13:40 Follow up: Response: No adverse reaction jw6 13:39 Drug: Benadryl (diphenhydrAMINE) 25 mg Route: IM; Site: left deltoid; jw6 13:40 Follow up: Response: No adverse reaction jw6 13:39 Not Given (Duplicate Order): Ativan (LORazepam) 1 mg IM once jw6 13:39 Not Given (Duplicate Order): Benadryl (diphenhydrAMINE) 25 mg IM once jw6 14:41 Drug: Ativan (LORazepam) 1 mg Route: IVP; Site: left forearm; jw6 14:41 Follow up: Response: No adverse reaction jw6 15:13 Follow up: Response: No adverse reaction jw6 15:23 Drug: HALdol (as decanoate) 10 mg Route: IM; Site: right deltoid; jw6 15:27 Follow up: Response: No adverse reaction jw6 15:56 Drug: NS 0.9% 1000 ml Route: IV; Rate: 1 bolus; Site: left antecubital; jw6 17:48 Follow up: Response: No adverse reaction; IV Status: Completed infusion; IV Intake: jw6 1000ml 16:06 Drug: Potassium Chloride 20 mEq Route: IV; Rate: calculated rate; Site: left [facility] antecubital; 17:48 Follow up: Response: No adverse reaction; IV Status: Completed infusion; IV Intake: jw6 100ml 18:19 Drug: Rocephin (cefTRIAXone) 1 grams Route: IV; Rate: calculated rate; Site: left [facility] antecubital; 18:20 Follow up: Response: No adverse reaction jw6 18:20 Follow up: IV Status: Completed infusion jw6 18:20 Drug: NS 0.9% 500 ml Route: IV; Rate: bolus; Site: left antecubital; jw6 19:30 Follow up: IV Status: Completed infusion; IV Intake: 500ml lp1 20:00 Drug: NS 0.9% 1000 ml Route: IV; Rate: 100 ml/hr; Site: left forearm; lp1 20:42 Follow up: IV Status: Infusion continued upon admission lp1 20:15 Drug: Tylenol Suppository 650 mg Route: MO; lp1 20:43 Follow up: Response: No adverse reaction lp1 Disposition: 18:24 Chart complete. cp Disposition Summary: 05/27/21 16:19 Hospitalization Ordered Hospitalization Status: Inpatient Admission cp Provider: Colby Lafleur cp Location: Telemetry/MedSurg (Inpatient) cp Condition: Fair cp Problem: new cp Symptoms: are unchanged cp Bed/Room Type: Standard cp Room Assignment: 232(05/27/21 19:51) mw Diagnosis - Altered mental status, unspecified cp - Hypokalemia cp Forms: - Medication Reconciliation Form cp - SBAR form cp Addendum: 06/05/2021 22:53 Co-signature as Attending Physician, Ajay Mukherjee MD PA/PEN MAKER's history reviewed, m a2 patient interviewed, and examined. I agree with assessment and care plan and confirm the diagnosis (es) above. Signatures: Dispatcher [employer] EDMS Samantha Laws RN RN mw Leilani Toribio RN RN lp1 Branden Shah PA PA cp Ajay Mukherjee MD MD nm2 Shannan Browning 6 Corrections: (The following items were deleted from the chart) 05/27 15:50 15:48 This 60 yrs old Female presents to ER via EMS with complaints of cp Altered Mental Status. cp 19:48 16:19 cp mw 19:51 19:48 201 mw mw
--- NOTE | 2021-05-27 16:20 | ER ---
Nurse's Notes [facility] Name: Kim Aldana Age: 60 yrs Sex: Female : 1960 Arrival Date: 05/27/2021 Time: 13:34 Bed 7 Private MD: Diagnosis: Altered mental status, unspecified;Hypokalemia Presentation: 05/27 13:40 Chief complaint: EMS states: home health nurse found patient altered on the ground in jw6 patient house. Coronavirus screen: Vaccine status: At this time, unable to obtain information related to travel outside the [place] At this time, the client does not indicate any symptoms associated with coronavirus-19. Ebola Screen: Patient negative for fever greater than or equal to 101.5 degrees Fahrenheit, and additional compatible Ebola Virus Disease symptoms Patient denies exposure to infectious person. Patient denies travel to an Ebola-affected area in the 21 days before illness onset. Initial Sepsis Screen: Does the patient meet any 2 criteria? Altered Mental Status. HR > 90 bpm. Does the patient have a suspected source of infection? No. Patient's initial sepsis screen is negative. Risk Assessment: Do you want to hurt yourself or someone else? Unable to obtain. Onset of symptoms was May 27, 2021. 13:40 Method Of Arrival: EMS [facility] 13:40 Acuity: CABRERA 3 jw6 Triage Assessment: 13:43 General: Appears distressed, uncomfortable, unkempt, malnourished, Behavior is fussy, jw6 restless, uncooperative. Pain: Denies pain. EENT: No deficits noted. Neuro: Level of Consciousness is awake, confused, Oriented to none Speech clear but altered thinking . Cardiovascular: Rhythm is sinus tachycardia. Respiratory: No deficits noted. GI: No deficits noted. : No deficits noted. Derm: No deficits noted. Musculoskeletal: No deficits noted. Historical: - Allergies: 13:43 Aspirin; jw6 13:43 Compazine; jw6 13:43 Methadone; jw6 13:43 Morphine; jw6 13:43 Neurontin; jw6 13:43 PENICILLINS; jw6 13:43 Phenergan; jw6 13:43 plastic tape; jw6 13:43 Suboxone; jw6 - PMHx: 13:43 arterial insuficiency; Back pain; cerebritis; chest pain; Chronic pain; dejenteritive jw6 joint disease; Dyspepsia; esophageal reflux; fatigue; hypersomnia; lumbar radiculitis; Lupus; menopause; osteomyelitis; Panic Attacks; pulmonary edema; Seizures; Tachycardia; TIA; venous insufficiency; - PSHx: 13:43 bowel resection; breast reduction bilateral; hip replacement bilateral; right total jw6 knee; - Immunization history:: unable to obtain. - Social history:: Smoking status: unknown. Screenin:49 Abuse screen: Denies threats or abuse. Denies injuries from another. Nutritional jw6 screening: No deficits noted. Tuberculosis screening: No symptoms or risk factors identified. Fall Risk Fall in past 12 months (25 points). IV access (20 points). Mental Status- Overestimates/Forgets Limitations (15 pts.). Assessment: 13:49 General: Appears distressed, uncomfortable, unkempt. Pain: Denies pain. Neuro: Level of jw6 Consciousness is awake, confused, Oriented to none. Cardiovascular: Rhythm is sinus tachycardia. Respiratory: No deficits noted. GI: No deficits noted. GI: No deficits noted. : No deficits noted. EENT: No deficits noted. Derm: No deficits noted. Musculoskeletal: Amputation of right first toe, right second toe, right third toe, right fourth toe, right fifth toe, Right first toenail, Right second toenail, Right third toenail and Right fourth toenail. 19:50 General: Appears in no apparent distress. Behavior is restless. Neuro: Level of lp1 Consciousness is awake, confused, Patient yelling out intermittently; Sister at bedside, seems to calm her. Moves all extremities. Cardiovascular: Patient's skin is warm and dry. Respiratory: Respiratory effort is even, unlabored. Derm: Skin is intact, Skin is dry, Skin is normal, Skin temperature is hot. 20:08 Reassessment: verbal order from Dr. Pichardo for Tylenol 650mg NJ now for fever. lp1 Vital Signs: 13:40 BP 146 / 82; Pulse 121; Resp 20; Temp 98.6; Pulse Ox 98% on R/A; Pain 0/10; jw6 13:48 BP 146 / 72; Pulse 118; Resp 20; Temp 98.6; Pulse Ox 95% on R/A; jw6 16:06 BP 170 / 95; Pulse 115; Resp 22; Pulse Ox 99% on R/A; jw6 17:19 BP 173 / 83; Pulse 117; Resp 28; Pulse Ox 99% on R/A; jw6 18:22 BP 156 / 94; Pulse 119; Resp 26; Pulse Ox 98% on R/A; jw6 18:22 Temp 99.2(O); jw6 20:04 BP 158 / 80; Pulse 127; Resp 19; Temp 101.3(A); Pulse Ox 98% ; lp1 20:15 Temp 102.8(R); lp1 Vitals: 17:19 Cardiac Rhythm Assessment Sinus tach. jw6 ED Course: 13:34 Patient arrived in ED. eb 13:36 Branden Shah PA is PHCP. cp 13:36 Ajay Mukherjee MD is Attending Physician. cp 13:38 Shannan Browning is Primary Nurse. jw6 13:43 Triage completed. jw6 13:43 Arm band placed on left wrist. jw6 13:49 Patient has correct armband on for positive identification. Allergy band placed. Fall jw6 risk band placed. Bed in low position. Call light in reach. Side rails up X2. 14:18 Initial lab(s) drawn, by ED staff, sent to lab. First set of blood cultures drawn by ED [facility] staff. 14:27 Inserted saline lock: 22 gauge in left forearm, using aseptic technique. jw6 14:28 Second set of blood cultures drawn by ED staff. jw6 14:32 Lactate Sent. jw6 14:32 LFT's Sent. jw6 14:32 CPK Sent. jw6 14:32 CBC with Diff Sent. jw6 14:32 Blood Culture Adult (2) Sent. jw6 14:32 Basic Metabolic Panel Sent. jw6 15:03 CT Traumagram (Head C Spine CAP W Con) In Process Unspecified. EDMS 15:14 Warm blanket given. quality assurance monitor on. Pulse ox on. NIBP on. 5 15:47 Rodriguez cath inserted, using sterile technique, 16 Fr., by co, balloon inflated, to jw6 gravity drainage, urine specimen collected. returned cuauhtemoc urine. Patient tolerated well. 15:56 Blood Culture Sent. 5 15:56 UDS Sent. 5 15:57 Urine Culture Sent. 5 15:57 Urine collected: clean catch specimen, clear. mh5 16:07 No provider procedures requiring assistance completed. jw6 16:15 UDS Sent. 5 16:18 Colby Lafleur is Hospitalizing Provider. cp 17:05 Chest Single View XRAY In Process Unspecified. EDMS 20:24 Patient admitted, IV remains in place. lp1 Administered Medications: 13:39 Drug: Ativan (LORazepam) 1 mg Route: IM; Site: left deltoid; jw6 13:40 Follow up: Response: No adverse reaction jw6 13:39 Drug: Benadryl (diphenhydrAMINE) 25 mg Route: IM; Site: left deltoid; jw6 13:40 Follow up: Response: No adverse reaction jw6 13:39 Not Given (Duplicate Order): Ativan (LORazepam) 1 mg IM once jw6 13:39 Not Given (Duplicate Order): Benadryl (diphenhydrAMINE) 25 mg IM once jw6 14:41 Drug: Ativan (LORazepam) 1 mg Route: IVP; Site: left forearm; jw6 14:41 Follow up: Response: No adverse reaction jw6 15:13 Follow up: Response: No adverse reaction jw6 15:23 Drug: HALdol (as decanoate) 10 mg Route: IM; Site: right deltoid; jw6 15:27 Follow up: Response: No adverse reaction jw6 15:56 Drug: NS 0.9% 1000 ml Route: IV; Rate: 1 bolus; Site: left antecubital; jw6 17:48 Follow up: Response: No adverse reaction; IV Status: Completed infusion; IV Intake: jw6 1000ml 16:06 Drug: Potassium Chloride 20 mEq Route: IV; Rate: calculated rate; Site: left jw6 antecubital; 17:48 Follow up: Response: No adverse reaction; IV Status: Completed infusion; IV Intake: jw6 100ml 18:19 Drug: Rocephin (cefTRIAXone) 1 grams Route: IV; Rate: calculated rate; Site: left jw6 antecubital; 18:20 Follow up: Response: No adverse reaction jw6 18:20 Follow up: IV Status: Completed infusion jw6 18:20 Drug: NS 0.9% 500 ml Route: IV; Rate: bolus; Site: left antecubital; jw6 19:30 Follow up: IV Status: Completed infusion; IV Intake: 500ml lp1 20:00 Drug: NS 0.9% 1000 ml Route: IV; Rate: 100 ml/hr; Site: left forearm; lp1 20:42 Follow up: IV Status: Infusion continued upon admission lp1 20:15 Drug: Tylenol Suppository 650 mg Route: NJ; lp1 20:43 Follow up: Response: No adverse reaction lp1 Intake: 17:48 IV: 100ml; Total: 100ml. jw6 17:48 IV: 1000ml; Total: 1100ml. jw6 19:30 IV: 500ml; Total: 1600ml. lp1 Outcome: 16:19 Decision to Hospitalize by Provider. cp 20:24 Condition: stable lp1 20:24 Instructed on the need for admit. 20:42 Admitted to Med/surg via stretcher, room 232, with chart, Report called to MELQUIADES Mejía lp1 20:45 Patient left the ED. lp1 Signatures: Dispatcher [employer] EDMS Leilani Toribio RN RN lp1 Branden Shah PA PA cp Martinez, Maria [facility] Monik Jesus Jessica [facility]
[2021-05-27] MEDS ORDERED: KCL 20 MEQ/100 mL IVPB 20 MEQ/100 ML BAG IV ONE (16:24)
[2021-05-27 17:33] LABS: Urine Bacteria <20 /HPF (<20)
--- NOTE | 2021-05-27 17:38 | RAD REPORT ---
EXAM DESCRIPTION: RAD - Chest Single View - 05/27/2021 5:05 pm CLINICAL HISTORY: AMS COMPARISON: Chest Single View dated 05/09/2021; Chest Single View dated 05/08/2021; Chest Single View dated 10/13/2020; Chest Single View dated 06/19/2019 FINDINGS: Lines: None. Lungs: No evidence of edema or pneumonia. Pleural: No significant pleural effusions or pneumothorax. Cardiac: Aortic and mitral valve replacement. Bones: No acute fractures. Other: Sternotomy. IMPRESSION: No acute cardiopulmonary disease.
--- NOTE | 2021-05-27 18:16 | P.HP ---
Certification for Inpatient Patient admitted to: Inpatient With expected LOS: >2 Midnights Practitioner: I am a practitioner with admitting privileges, knowledge of patient current condition, hospital course, and medical plan of care. Services: Services provided to patient in accordance with Admission requirements found in Title 42 Section 412.3 of the Code of Federal Regulations Patient History Date of Service: 05/27/21 Reason for admission: Altered mental status. History of Present Illness: 60-year-old woman with a history of chronic pain, history of chronic right toe with osteomyelitis, patient noncompliant with treatment was found confused by a neighbor will her spouse. Spouse brought her to the emergency department for evaluation. According to report her spouse suspect the altered mental status is due to the opioids and other medications she is taking for pain. No witnessed seizures. Patient was agitated in the ED and was given multiple doses Ativan and Haldol. Patient was obtunded and could not provide any history. Elevated lactic acid, hypokalemia noted. UA with mild evidence of UTI. Head CT negative for acute disease. Other images-CT abdomen and pelvis, CT chest, CT cervical all unremarkable. Patient hospitalized for further management of altered mental status. Allergies hydromorphone HCl [From Dilaudid] Allergy (Intermediate, Verified 10/13/20 22:28) Nausea/Vomiting Penicillins Allergy (Intermediate, Verified 10/13/20 22:28) Itching/Hives/Rash prochlorperazine [From Compazine] Allergy (Intermediate, Verified 10/13/20 22:28) Nausea/Vomiting prochlorperazine edisylate [From Compazine] Allergy (Intermediate, Verified 10/13/20 22:28) Nausea/Vomiting prochlorperazine maleate [From Compazine] Allergy (Intermediate, Verified 10/13/20 22:28) Nausea/Vomiting promethazine [From Phenergan] Allergy (Intermediate, Verified 10/13/20 22:28) Nausea/Vomiting morphine Allergy (Mild, Verified 10/14/20 07:43) Itching/Hives/Rash promethazine HCl [From Phenergan] Allergy (Verified 10/13/20 22:28) Nausea/Vomiting plastic tape Allergy (Mild, Uncoded 10/13/20 22:28) Itching Tape Allergy (Mild, Uncoded 10/13/20 22:28) Itching Home Medications: ALPRAZolam [Alprazolam] 2 mg PO TID PRN 11/11/19 Cyanocobalamin [Vitamin B-12*] 1,000 mcg IM DIRECTED 11/11/19 Gabapentin 600 mg PO BID 11/11/19 Levothyroxine [Synthroid*] 150 mcg PO DAILY 11/11/19 Metoprolol Succinate [Toprol Xl*] 50 mg PO DAILY 11/11/19 Mupirocin Oint [Bactroban 2% Ointment*] 1 marisol TOP DAILY 11/11/19 Omeprazole [Prilosec] 40 mg PO DAILY 11/11/19 Venlafaxine HCl [Effexor*] 150 mg PO DAILY 11/11/19 Acyclovir 400 mg PO DAILY 11/01/20 Amitriptyline [Elavil*] 25 mg PO BID 11/01/20 Cyclobenzaprine [Flexeril*] 10 mg PO QID 11/01/20 Cyclosporine [Restasis] 1 drop EACH EYE 11/01/20 Estradiol [Estrace] 0.01 11/01/20 Magnesium Oxide 400 mg PO DAILY 11/01/20 Meclizine HCl 12.5 mg PO 11/01/20 Warfarin Sodium [Coumadin*] 5 mg PO 11/01/20 predniSONE [Prednisone] 20 mg PO SEECOM 28 Days #46 tablet 11/04/20 - Past Medical/Surgical History Diabetic: No -: Systemic lupus erythematous -: cerebritis -: Seizure disorder -: DJD, chronic pain -: GERD -: Chronic steroid use -: Arterial/venous insufficiency -: Anxiety/panic disorder -: amputation of toes left foot -: Bilateral HIP REPLACED -: RIGHT KNEE REPLACED -: MITRAL and AORTIC VALVE REPLACED -: tubal ligation -: Colon sx -: Partial left foot removed Psychosocial/ Personal History: Patient reports that she lives alone with her dog, does have family at around and a friend that checks on her. (patient altered at time of exam) - Family History Sister -: Heart disease - Social History Alcohol use: No CD- Drugs: No Caffeine use: No Review of Systems is unable to be obtained (Due to altered mental status.) Physical Examination - Physical Exam General: Confused HEENT: Atraumatic, PERRLA, Mucous membr. moist/pink, EOMI, Sclerae nonicteric Neck: Supple, JVD not distended, No Thyromegaly Respiratory: Clear to auscultation bilaterally, Normal air movement Cardiovascular: No edema, Regular rate/rhythm, Normal S1 S2 Capillary refill: <2 Seconds Gastrointestinal: Normal bowel sounds, Soft and benign, Non-distended Musculoskeletal: Other (Multiple toe amputations-right foot) Neurological: Other (Confused. Moves all extremities) - Studies Laboratory Data (last 24 hrs) 05/27/21 14:20: PT 17.4 H, INR 1.51, APTT 47.0 H 05/27/21 14:20: WBC 7.00, Hgb 12.1, Hct 37.8, Plt Count 422 H 05/27/21 14:20: Sodium 135 L, Potassium 3.0 L, BUN 7, Creatinine 0.78, Glucose 93, Total Bilirubin 0.8, AST 48 H, ALT 29, Alkaline Phosphatase 102 Assessment and Plan - Problems (Diagnosis) (1) Acute metabolic encephalopathy Current Visit: Yes Status: Acute (2) Seizure disorder Current Visit: Yes Status: Acute (3) UTI (urinary tract infection) Current Visit: No Status: Acute Qualifiers: Urinary tract infection type: acute cystitis Hematuria presence: without hematuria Qualified Code(s): N30.00 - Acute cystitis without hematuria (4) H/O mechanical aortic valve replacement Onset Date: 04/05/17 Current Visit: No Status: Chronic (5) Systemic lupus Onset Date: 04/05/17 Current Visit: No Status: Chronic Qualifiers: Systemic lupus erythematosus type: unspecified Systemic lupus erythematosus organ involvement: unspecified Qualified Code(s): M32.9 - Systemic lupus erythematosus, unspecified (6) History of osteomyelitis Current Visit: Yes Status: Acute - Plan Supportive measures Neurochecks. Ativan p.r.n. for agitation. Hold opioids. Hold psychotropic medications including gabapentin. Monitor for seizures. Hydrate with IV normal saline. Start antibiotic for UTI and osteomyelitis. Monitor and correct electrolytes. Obtain EEG. Noted patient was diagnosis SLE cerebritis for similar presentation previously. Will cover with IV steroid. - Advance Directives Does patient have a Living Will: No Does patient have a Durable POA for Healthcare: No
[2021-05-27] MEDS ORDERED: NA CHLORIDE 0.9% 500 ML ONE (18:22)
[2021-05-27] MEDS ORDERED: CEFTRIAXONE 1000 MG/VIAL ONE (18:22)
[2021-05-27] MEDS ORDERED: NA CHLORIDE 0.9% 1,000 ML ONE (20:01)
[2021-05-27] MEDS ORDERED: LORazepam 2 MG/ML VIAL IV PRN (20:06)
[2021-05-27] MEDS ORDERED: VANCOMYCIN 1.25 GM in NA CHLORIDE 0.9% 250 ML IVPB SCH (20:06)
[2021-05-27] MEDS ORDERED: ACETAMINOPHEN 650MG/RECT SUPP PR ONE (20:33)
[2021-05-27] MEDS: VANCOMYCIN/NS 1 gm 1 GM/250 ML BAG IVPB SCH (21:00)
[2021-05-27 21:03] VITALS: BMI 20.7
[2021-05-27] MEDS: Levofloxacin 750mg IV 750 MG/150 ML BAG IV SCH (21:58)
[2021-05-27] MEDS ORDERED: VANCOMYCIN 1 GM/VIAL ONE (22:10)
[2021-05-27] MEDS ORDERED: NA CHLORIDE 0.9% 250 ML ONE (22:10)
[2021-05-27] MEDS: NS KCL 20MEQ 20 MEQ/1,000 ML BAG IV SCH (23:30)
[2021-05-28 05:38] LABS: Basophils % 0.6 % (0-1.3); Hematocrit 32.4 % (36.0-45.0); Lymphocytes % 23.3 % (15.3-44.8); MPV 8.7 fL (7.6-11.3); RBC Red Blood Cell Count 4.19 M/uL (3.86-4.86)
[2021-05-28 06:06] LABS: ALT/SGPT 20 U/L (12-78); AST/SGOT 40 U/L (15-37); Albumin 2.7 g/dL (3.4-5.0); Alkaline Phosphatase 80 U/L (45-117); BUN Blood Urea Nitrogen 6 mg/dL (7-18); Bicarbonate 23 mmol/L (21-32); Bilirubin Total 0.5 mg/dL (0.2-1.0); Glucose Level 93 mg/dL (74-106); Potassium 3.3 mmol/L (3.5-5.1); Protein, Total 6.9 g/dL (6.4-8.2); Sodium Level 138 mmol/L (136-145)
[2021-05-28] MEDS ORDERED: ENOXAPARIN 40 MG/0.4 ML SQ SCH (09:00)
[2021-05-28] MEDS ORDERED: METHYLPRED NA SUC 1,000 MG in NA CHLORIDE 0.9% 100 ML IV SCH (09:00)
--- NOTE | 2021-05-28 11:47 | P.PN ---
Subjective Date of Service: 05/28/21 Chief Complaint: Altered mental status. Patient is awake and alert today. She is complaining of thirst. She denies taking any Xanax or any opioid. Her urine toxicology screen is positive for benzodiazepine. Patient family members states she does not tolerate benzodiazepines. She dev eloped altered mental status that last more than 24 hrs whenever she takes benzodiazepine or opioids. She currently denies any complain. She had a fever last night. Physical Examination - Vital Signs Temperature: 98.6 F Blood Pressure: 142/70 Pulse: 116 Respirations: 20 Pulse Ox (%): 98 - Studies Laboratory Data (last 24 hrs) 05/27/21 14:20: PT 17.4 H, INR 1.51, APTT 47.0 H 05/27/21 14:20: WBC 7.00, Hgb 12.1, Hct 37.8, Plt Count 422 H 05/27/21 14:20: Sodium 135 L, Potassium 3.0 L, BUN 7, Creatinine 0.78, Glucose 93, Total Bilirubin 0.8, AST 48 H, ALT 29, Alkaline Phosphatase 102 Assessment And Plan - Current Problems (Diagnosis) (1) Acute metabolic encephalopathy Current Visit: Yes Status: Acute (2) Seizure disorder Current Visit: Yes Status: Acute (3) UTI (urinary tract infection) Current Visit: No Status: Acute Qualifiers: Urinary tract infection type: acute cystitis Hematuria presence: without hematuria Qualified Code(s): N30.00 - Acute cystitis without hematuria (4) H/O mechanical aortic valve replacement Onset Date: 04/05/17 Current Visit: No Status: Chronic (5) Systemic lupus Onset Date: 04/05/17 Current Visit: No Status: Chronic Qualifiers: Systemic lupus erythematosus type: unspecified Systemic lupus erythematosus organ involvement: unspecified Qualified Code(s): M32.9 - Systemic lupus erythematosus, unspecified (6) History of osteomyelitis Current Visit: Yes Status: Acute - Plan Physical examination General: Not in acute distress, well built. Eyes: RUTH, EOMI, anicteric sclera. Conjunctiva not pale. ENT: Moist oral mucosa, pharynx is clear, no exudate, no erythema. Neck: Supple, no lymphadenopathy, no neck mass. Chest: Symmetrical breathing movement. Chest wall is nontender to palpation. Lungs: Clear to auscultation bilaterally. Adequate breath sounds bilaterally. No rhonchi, no rales no crackles. Heart: Heart sounds 1 and 2 heard and normal, normal rate, regular rhythm. No murmur. Abdomen: Soft, nondistended, nontender, normal bowel sounds, no organomegaly, no costovertebral angle tenderness. Extremities: No pitting edema bilateral lower extremities, no calf tenderness bilaterally lower extremities, no digital cyanosis. Lymphatics: No enlarged lymph nodes in the neck or clavicular area. Neurology: Oriented x3, no focal motor deficits, no sensory deficits. Psychiatry: Normal thought content, normal behavior, no agitated. Skin: Warm and dry. No rashes or ulcers. Assessment: Acute metabolic encephalopathy. UTI Sepsis Chronic pains syndrome Chronic lower extremity neuropathy Chronic nonhealing right toe wound Osteomyelitis SLE Plan: Discontinue ativan. Continue IV antibiotics Follow urine culture and blood cultures. Resume home medications and monitor mental status. No witnessed seizures Monitor for seizures. Continue IV normal saline. Feeding resumed Consult general surgeon-Dr. Seth, regarding osteomyelitis. Monitor and correct electrolytes. Obtain EEG. Noted patient was diagnosis SLE cerebritis for similar presentation previously. Patient given a dose of IV steroid. Will resume her oral dose prednisone 2.5 mg daily.
[2021-05-28] MEDS: ONDANSETRON 4 MG/2 ML VIAL IV PRN (12:59)
[2021-05-28] MEDS: VENLAFAXINE HCL 75 MG TABLET PO SCH (13:01)
[2021-05-28] MEDS: CYCLOBENZAPRINE 10 MG TAB PO SCH ×3 (13:01→21:59)
[2021-05-28] MEDS: METOPROLOL XL 50 MG TAB PO SCH (13:02)
[2021-05-28] MEDS: ACYCLOVIR 400 MG TABLET PO SCH (13:03)
[2021-05-28] MEDS: NS KCL 20MEQ 20 MEQ/1,000 ML BAG IV SCH ×2 (15:33→22:46)
[2021-05-28] MEDS: VANCOMYCIN/NS 1 gm 1 GM/250 ML BAG IVPB SCH (15:34)
[2021-05-28] MEDS ORDERED: POTASSIUM CL SA 10 MEQ TAB PO ONE (16:04)
[2021-05-28] MEDS ORDERED: WARFARIN SODIUM 5 MG TAB PO SCH (17:00)
[2021-05-28] MEDS: GABAPENTIN 300 MG CAP PO SCH (21:59)
[2021-05-28] MEDS: AMITRIPTYLINE 25 MG TAB PO SCH (22:00)
[2021-05-28] MEDS: Levofloxacin 750mg IV 750 MG/150 ML BAG IV SCH (22:00)
[2021-05-29] MEDS: ONDANSETRON 4 MG/2 ML VIAL IV PRN (03:41)
[2021-05-29] MEDS: NS KCL 20MEQ 20 MEQ/1,000 ML BAG IV SCH (03:47)
[2021-05-29] MEDS ORDERED: LEVOTHYROXINE SOD 0.075 MG TAB PO SCH (06:00)
[2021-05-29 06:03] LABS: Absolute Lymphocytes (CBC) 0.4 K/uL (0.7-4.9); Basophils % 0.3 % (0-1.3); Hematocrit 29.4 % (36.0-45.0); Lymphocytes % 10.9 % (15.3-44.8); MPV 8.6 fL (7.6-11.3); RBC Red Blood Cell Count 3.77 M/uL (3.86-4.86)
[2021-05-29 06:19] LABS: Potassium 4.4 mmol/L (3.5-5.1)
[2021-05-29 06:32] LABS: Blood Morphology Comment NOT SEEN (NOT SEEN); Platelet Estimate ADEQ; White Blood Cell Scan OK (OK)
[2021-05-29] MEDS ORDERED: PANTOPRAZOLE 40MG TABLET PO SCH (09:00)
[2021-05-29] MEDS: GABAPENTIN 300 MG CAP PO SCH ×2 (09:00→09:06)
[2021-05-29] MEDS ORDERED: MUPIROCIN 2% OINT 22GM TUBE TOP SCH (09:00)
[2021-05-29] MEDS ORDERED: predniSONE 5 MG TAB PO SCH (09:00)
[2021-05-29] MEDS ORDERED: HOME MED 1 EA UNK (Cyclosporine [Restasis] Droperette) OPTH SCH (09:00)
[2021-05-29] MEDS: VENLAFAXINE HCL 75 MG TABLET PO SCH (09:09)
[2021-05-29] MEDS: CYCLOBENZAPRINE 10 MG TAB PO SCH ×2 (09:09→12:33)
[2021-05-29] MEDS: AMITRIPTYLINE 25 MG TAB PO SCH (09:11)
[2021-05-29] MEDS: METOPROLOL XL 50 MG TAB PO SCH (09:12)
[2021-05-29] MEDS: ACYCLOVIR 400 MG TABLET PO SCH (09:12)
[2021-05-29] MEDS: VANCOMYCIN/NS 1 gm 1 GM/250 ML BAG IVPB SCH (11:00)
[2021-05-29 12:37] VITALS: BP 131/64; TEMP 98.9
--- NOTE | 2021-05-29 12:41 | P.DS ---
Admission Date: 05/27/21 Discharge Date: 05/29/21 Disposition: ROUTINE DISCHARGE Discharge Condition: FAIR Reason for Admission: Altered mental status. - Problems (1) Acute metabolic encephalopathy Current Visit: Yes Status: Acute (2) Seizure disorder Current Visit: Yes Status: Acute (3) UTI (urinary tract infection) Current Visit: No Status: Acute Qualifiers: Urinary tract infection type: acute cystitis Hematuria presence: without hematuria Qualified Code(s): N30.00 - Acute cystitis without hematuria (4) H/O mechanical aortic valve replacement Onset Date: 04/05/17 Current Visit: No Status: Chronic (5) Systemic lupus Onset Date: 04/05/17 Current Visit: No Status: Chronic Qualifiers: Systemic lupus erythematosus type: unspecified Systemic lupus erythematosus organ involvement: unspecified Qualified Code(s): M32.9 - Systemic lupus erythematosus, unspecified (6) History of osteomyelitis Current Visit: Yes Status: Acute Brief History of Present Illness: 60-year-old woman with a history of chronic pain, history of chronic right toe with osteomyelitis, patient noncompliant with treatment was found confused by a neighbor will her spouse. Spouse brought her to the emergency department for evaluation. According to report her spouse suspect the altered mental status is due to the opioids and other medications she is taking for pain. No witnessed seizures. Patient was agitated in the ED and was given multiple doses Ativan and Haldol. Patient was obtunded and could not provide any history. Elevated lactic acid, hypokalemia noted. UA with mild evidence of UTI. Head CT negative for acute disease. Other images-CT abdomen and pelvis, CT chest, CT cervical all unremarkable. Urine toxicology screen positive for benzodiazepine. Patient hospitalized for further management of altered mental status. Hospital Course: Patient admitted to the medical floor and treated broad-spectrum antibiotics-IV vancomycin and IV levaquin She had a brief episode of fever. Urine cultures and blood cultures yielded no growth. Patient mental status improved to baseline within 24 hrs. Her mental status was stable on her home medications. Patient denied taking any benzodiazepine. Xanax is listed on her home medications but patient stated she does not take it anymore. She mentioned Xanax knocks her out for more than 24 hrs. No witnessed seizures Monitor for seizures. Patient hydrated with IV normal saline Patient with a history of osteomyelitis being followed by Dr. Seth. Per report she refused to continue antibiotics for the osteomyelitis. I had a discussion with Dr. Seth who stated patient is yet to make a decision on amputation of toe with osteomyelitis. Blood cultures no growth. Patient will follow with Dr. Seth in the [facility] Care [facility] for further discussion and treatment. Will prescribe at least 2 weeks of oral Levaquin. Patient on prednisone 2.5 mg maintenance dose. She was given high dose IV Solu- Medrol for possible lupus cerebritis. Solu-Medrol was discontinued because her mental status improved to baseline. Vital Signs/Physical Exam: Temp Pulse Resp BP Pulse Ox 97.9 F 100 H 16 130/63 99 05/29/21 12:00 05/29/21 12:00 05/29/21 12:00 05/29/21 12:00 05/29/21 12:00 General: Alert, In no apparent distress, Oriented x3 HEENT: Mucous membr. moist/pink Neck: JVD not distended Respiratory: Clear to auscultation bilaterally, Normal air movement Cardiovascular: Regular rate/rhythm, Normal S1 S2 Gastrointestinal: Soft and benign, Non-distended Musculoskeletal: No swelling Neurological: Normal strength at 5/5 x4 extr Laboratory Data at Discharge: WBC 4.00 K/uL (4.3-10.9) L 05/29/21 05:32 Hgb 9.5 g/dL (12.0-15.0) L 05/29/21 05:32 Hct 29.4 % (36.0-45.0) L 05/29/21 05:32 Plt Count 304 K/uL (152-406) 05/29/21 05:32 PT 17.4 SECONDS (9.5-12.5) H 05/27/21 14:20 INR 1.51 05/27/21 14:20 APTT 47.0 SECONDS (24.3-36.9) H 05/27/21 14:20 Sodium 140 mmol/L (136-145) 05/29/21 05:32 Potassium 4.4 mmol/L (3.5-5.1) 05/29/21 05:32 BUN 11 mg/dL (7-18) 05/29/21 05:32 Creatinine 0.75 mg/dL (0.55-1.3) 05/29/21 05:32 Glucose 163 mg/dL (74-106) H 05/29/21 05:32 Total Bilirubin 0.5 mg/dL (0.2-1.0) 05/28/21 05:07 AST 40 U/L (15-37) H 05/28/21 05:07 ALT 20 U/L (12-78) 05/28/21 05:07 Alkaline Phosphatase 80 U/L (45-117) 05/28/21 05:07 Troponin I 0.02 ng/mL (0.0-0.045) 05/28/21 09:03 Home Medications: Cyanocobalamin [Vitamin B-12*] 1,000 mcg IM DIRECTED 11/11/19 Gabapentin 600 mg PO BID 11/11/19 Levothyroxine [Synthroid*] 150 mcg PO DAILY 11/11/19 Metoprolol Succinate [Toprol Xl*] 50 mg PO DAILY 11/11/19 Mupirocin Oint [Bactroban 2% Ointment*] 1 marisol TOP DAILY 11/11/19 Omeprazole [Prilosec] 40 mg PO DAILY 11/11/19 Venlafaxine HCl [Effexor*] 150 mg PO DAILY 11/11/19 Acyclovir 400 mg PO DAILY 11/01/20 Amitriptyline [Elavil*] 25 mg PO BID 11/01/20 Cyclobenzaprine [Flexeril*] 10 mg PO QID 11/01/20 Cyclosporine [Restasis] 1 drop EACH EYE DAILY 11/01/20 Magnesium Oxide 400 mg PO DAILY 11/01/20 Warfarin Sodium [Coumadin*] 5 mg PO DAILY AT SUPPER 11/01/20 predniSONE [Prednisone*] 2.5 mg PO DAILY tab 05/29/21 Diet: AHA Activity: Ad joycelyn Followup: NONE,NONE [Primary Care Provider] - 1-2 Weeks Danie Seth MD [ACTIVE - CAN ADMIT] - 1 Week Time spent managing pt's care (in minutes): 40
[2021-05-29 13:36] VITALS: O2SAT 99
== END 2021-05-29 14:13 | disposition home health service (06) | DRG 871 ==
LOC: ER 13:30 → ERHOLD 17:25 → 2ND 19:59
PROVIDERS: ADMIT Internal Medicine; ATTEND Internal Medicine
DX: A41.9 Sepsis, unspecified organism (principal); G93.41 Metabolic encephalopathy; N30.00 Acute cystitis without hematuria; M86.671 Other chronic osteomyelitis, right ankle and foot; G40.909 Epilepsy, unspecified, not intractable, without status epilepticus; M32.9 Systemic lupus erythematosus, unspecified; E87.6 Hypokalemia; G89.4 Chronic pain syndrome; G62.9 Polyneuropathy, unspecified; F15.90 Other stimulant use, unspecified, uncomplicated; Z95.2 Presence of prosthetic heart valve; Z91.19 Patient's noncompliance with other medical treatment and regimen; Z20.822 Contact with and (suspected) exposure to COVID-19
CPT/HCPCS: 36415; 51702; 70450; 71045; 71260; 72125; 74177; 80048; 80053; 80076; 80202; 80307; 81003; 81015; 82550; 82565; 83605; 84145; 84443; 84484; 85025; 85610; 85730; 87040; 87086; 87088; 93005; 94760; 96372; 99285; J1200; J1630; J1650; J2405; J2930; J3370; J3480; J7030; J7040; J7050; J7512; Q9967; U0003

== ENCOUNTER 2021-10-23 17:36 | Emergency (ER) | payer OTHER ==
--- NOTE | 2021-10-23 20:02 | EDPHYS ---
Physician Documentation [facility] Name: Kim Aldana Age: 61 yrs Sex: Female : 1960 Arrival Date: 10/23/2021 Time: 17:40 Bed 10 Private MD: Kayce Cheek H ED Physician Vick Barakat HPI: 10/23 18:28 This 61 yrs old Female presents to ER via Ambulatory with complaints of Sores on Hand. kb 18:30 The patient has a laceration related to: hit hand on counter occurred at home, and kb there are no complicating factors. The injury was accidental. The laceration(s) is(are) located on the dorsum of left hand. Onset: The symptoms/episode began/occurred yesterday. Associated signs and symptoms: The patient has no apparent associated signs or symptoms. The patient has not experienced similar symptoms in the past. The patient has not recently seen a physician. Pt states she hit her hand on the counter yesterday that caused a small abrasion. STates it hasn't stopped bleeding since. Reports she takes coumadin and when she checked her PT/INR today it said there were no clots so she called her strickler attendant and was told to come in for evaluation. Historical: - Allergies: 17:44 Aspirin; aa5 17:44 Compazine; aa5 17:44 Methadone; aa5 17:44 Morphine; aa5 17:44 Neurontin; aa5 17:44 PENICILLINS; aa5 17:44 Phenergan; aa5 17:44 plastic tape; aa5 17:44 Suboxone; aa5 - PMHx: 17:44 arterial insuficiency; Back pain; cerebritis; chest pain; Chronic pain; dejenteritive aa5 joint disease; Dyspepsia; esophageal reflux; fatigue; hypersomnia; lumbar radiculitis; Lupus; menopause; osteomyelitis; Panic Attacks; pulmonary edema; Seizures; Tachycardia; TIA; venous insufficiency; - PSHx: 17:44 bowel resection; breast reduction bilateral; hip replacement bilateral; right total aa5 knee; Mitral and Aortic Valve replacement; - Immunization history:: Flu vaccine is not up to date. - Social history:: Smoking status: Patient reports the use of cigarette tobacco products, denies chronic smoking, but will smoke occasionally. ROS: 18:30 Constitutional: Negative for fever, chills, and weight loss. kb 18:30 Skin: Positive for abrasion(s), of the dorsum of left hand. 18:30 All other systems are negative. Exam: 18:30 Constitutional: This is a well developed, well nourished patient who is awake, alert, kb and in no acute distress. Head/Face: Normocephalic, atraumatic. ENT: Moist Mucous membranes Respiratory: Respirations even and unlabored. No increased work of breathing. Talking in full sentences MS/ Extremity: Pulses equal, no cyanosis. Neurovascular intact. Full, normal range of motion. Neuro: Awake and alert, GCS 15, oriented to person, place, time, and situation. Moves all extremities. Normal gait. Psych: Awake, alert, with orientation to person, place and time. Behavior, mood, and affect are within normal limits. 18:30 Skin: injury, abrasion(s), very small abrasion noted, of the dorsum of left hand. Vital Signs: 17:44 BP 154 / 84; Pulse 92; Resp 18 S; Temp 97.9(TE); Pulse Ox 99% on R/A; Weight 63.5 kg; aa5 Height 5 ft. 6 in. (167.64 cm) (R); 17:44 Body Mass Index 22.60 (63.50 kg, 167.64 cm) aa5 MDM: 17:45 Patient medically screened. kb 18:28 Data reviewed: vital signs, nurses notes. Data interpreted: Pulse oximetry: on room air kb is 99 %. Interpretation: normal. 18:30 ED course: Bandage removed from abrasion. No active bleeding at this time. kb 20:00 Counseling: I had a detailed discussion with the patient and/or guardian regarding: the kb historical points, exam findings, and any diagnostic results supporting the discharge/admit diagnosis, the need for outpatient follow up, a family practitioner, to return to the emergency department if symptoms worsen or persist or if there are any questions or concerns that arise at home. ED course: Pt no longer wants to wait for PT/INR. States she is no longer bleeding and is ready to go home. Nurse reports there was a recollect ordered for pt's bloodwork and it has not been done yet so that is what was taking so long. . Administered Medications: No medications were administered Disposition: 19:10 Co-signature as Attending Physician, Vick Barakat MD I agree with the assessment and kdr plan of care. Disposition Summary: 10/23/21 20:01 Discharge Ordered Location: Home kb Condition: Stable kb Diagnosis - Abrasion of left hand kb Followup: kb - With: Emergency Department - When: As needed - Reason: Worsening of condition Followup: kb - With: Private Physician - When: 2 - 3 days - Reason: Recheck today's complaints, Continuance of care, Re-evaluation by your physician Discharge Instructions: - Discharge Summary Sheet kb - Abrasion, [id number] kb Forms: - Medication Reconciliation Form kb - Thank You Letter kb - Antibiotic Education kb - Prescription Opioid Use kb Signatures: Dispatcher [employer] EDMS Francisca Lopez, SEMAJ-C PROCESS LABORATORY SPECIALIST-Geeta Machado Kevin, MD MD [facility] Abbey Gonzales, RN RN aa5
--- NOTE | 2021-10-23 20:02 | ER ---
Nurse's Notes [facility] Name: Kim Aldana Age: 61 yrs Sex: Female : 1960 Arrival Date: 10/23/2021 Time: 17:40 Bed 10 Private MD: Kayce Cheek H Diagnosis: Abrasion of left hand Presentation: 10/23 17:43 Chief complaint: Patient states: "I was getting a pen and I hit my hand on a cabinet aa5 and it hasn't quit bleeding since last night". Dressing noted to left hand. Coronavirus screen: At this time, the client does not indicate any symptoms associated with coronavirus-19. Ebola Screen: No symptoms or risks identified at this time. Initial Sepsis Screen: Does the patient meet any 2 criteria? No. Patient's initial sepsis screen is negative. Does the patient have a suspected source of infection? No. Patient's initial sepsis screen is negative. Risk Assessment: Do you want to hurt yourself or someone else? Patient reports no desire to harm self or others. Onset of symptoms was October 2021. 17:43 Method Of Arrival: Ambulatory aa5 17:43 Acuity: CABRERA 4 aa5 Historical: - Allergies: 17:44 Aspirin; aa5 17:44 Compazine; aa5 17:44 Methadone; aa5 17:44 Morphine; aa5 17:44 Neurontin; aa5 17:44 PENICILLINS; aa5 17:44 Phenergan; aa5 17:44 plastic tape; aa5 17:44 Suboxone; aa5 - PMHx: 17:44 arterial insuficiency; Back pain; cerebritis; chest pain; Chronic pain; dejenteritive aa5 joint disease; Dyspepsia; esophageal reflux; fatigue; hypersomnia; lumbar radiculitis; Lupus; menopause; osteomyelitis; Panic Attacks; pulmonary edema; Seizures; Tachycardia; TIA; venous insufficiency; - PSHx: 17:44 bowel resection; breast reduction bilateral; hip replacement bilateral; right total aa5 knee; Mitral and Aortic Valve replacement; - Immunization history:: Flu vaccine is not up to date. - Social history:: Smoking status: Patient reports the use of cigarette tobacco products, denies chronic smoking, but will smoke occasionally. Screenin:33 Abuse screen: Denies threats or abuse. Denies injuries from another. Nutritional ld1 screening: No deficits noted. Tuberculosis screening: No symptoms or risk factors identified. Fall Risk None identified. Assessment: 18:33 General: Appears in no apparent distress. comfortable, Behavior is calm, cooperative, ld1 appropriate for age. Pain: Denies pain. Neuro: Level of Consciousness is awake, alert, obeys commands, Oriented to person, place, time, situation. Cardiovascular: Capillary refill < 3 seconds Patient's skin is warm and dry. Respiratory: Airway is patent Respiratory effort is even, unlabored, Respiratory pattern is regular, symmetrical. GI: Abdomen is flat, non-distended. : No signs and/or symptoms were reported regarding the genitourinary system. EENT: No signs and/or symptoms were reported regarding the EENT system. Derm: No signs and/or symptoms reported regarding the dermatologic system. Musculoskeletal: No signs and/or symptoms reported regarding the musculoskeletal system. Vital Signs: 17:44 BP 154 / 84; Pulse 92; Resp 18 S; Temp 97.9(TE); Pulse Ox 99% on R/A; Weight 63.5 kg; aa5 Height 5 ft. 6 in. (167.64 cm) (R); 17:44 Body Mass Index 22.60 (63.50 kg, 167.64 cm) aa5 ED Course: 17:40 Patient arrived in ED. mr 17:40 Kayce Cheek DO is Private Physician. mr 17:41 Francisca Lopez FNP-C is [facility]. kb 17:41 Vick Barakat MD is Attending Physician. kb 17:42 Arm band placed on. aa5 17:44 Triage completed. aa5 18:33 Xiomy Mehta, MELQUIADES is Primary Nurse. ld1 18:33 Patient has correct armband on for positive identification. Placed in gown. Bed in low ld1 position. Side rails up X2. Pulse ox on. NIBP on. Door closed. Noise minimized. Warm blanket given. 18:33 No provider procedures requiring assistance completed. ld1 20:05 Patient did not have IV access during this emergency room visit. ld1 Administered Medications: No medications were administered Outcome: 20:01 Discharge ordered by . kb 20:05 Discharged to home ambulatory. ld1 20:05 Condition: stable 20:05 Discharge instructions given to patient, Instructed on discharge instructions, follow up and referral plans. Demonstrated understanding of instructions, follow-up care. 20:05 Patient left the ED. ld1 Signatures: Francisca Lopez FNP-C FNP-Fatmata Shobha Blakely, Abbey, RN RN aa5 Xiomy Mehta RN RN ld1 Corrections: (The following items were deleted from the chart) 17:44 17:43 Chief complaint: Patient states: "I was getting a pen and I hit my hand on a aa5 cabinet and it hasn't quit bleeding since then". Dressing noted to left hand. aa5 17:44 17:44 BP 154 / 84; Pulse 92bpm; Resp 18bpm; Spontaneous; Pulse Ox 99% RA; aa5 aa5
[2021-10-23 20:22] VITALS: BP 154/84; TEMP 97.9; O2SAT 99
--- OUTSIDE RECORDS SUMMARY | 2021-10-24 00:24 | XMS REPORT | Continuity of Care Document ---
:1960 Author Organization [facility] t Address [address] [place] [address] Care Team Providers Name Role Phone Radhames SEGURA Attending Clinician Unavailable OMRANIAN Attending Clinician Unavailable JOVAN CHRISTINA Admitting Clinician Unavailable OMRANIAN Admitting Clinician Unavailable Payers Payer Name Policy Type Policy Number Effective Date Expiration Date S ource [employer] MEDICARE HMO [id number] 2018 POS 00:00:00 Problems This patient has no known problems. Allergies, Adverse Reactions, Alerts Allergy Allergy Status Severity Reaction(s) Onset Inactive Treating Comm ents Source Name Type Date Date Clinician MORPHOLI Allergy Active N\T\V SLE NE 1-05 ANALOGUE 00:00: S 00 HYDROMOR Allergy Active N\T\V [facility] PHONE 105 (BULK) 00:00: 00 PENICILL Allergy Active [facility] INS -06 00:00: 00 Medications This patient has no known medications. Vital Signs Vital Name Observation Time Observation Value Comments Source WEIGHT 2020-08-26 07:00:00 62.37 kg HEIGHT 2020-08-26 06:04:00 167.6 cm WEIGHT 2020-08-26 06:04:00 62.143 kg WEIGHT 2020-08-25 08:00:00 62.188 kg WEIGHT 2020-08-24 06:26:00 63.005 kg WEIGHT 2020-08-23 05:00:00 63.594 kg WEIGHT 2020-08-22 08:39:00 63.594 kg WEIGHT 2020-08-19 04:01:00 61.236 kg WEIGHT 2020-08-18 05:45:00 65.953 kg WEIGHT 2020-08-15 06:48:00 61.462 kg HEIGHT 2020-08-09 21:19:00 167.6 cm WEIGHT 2020-08-09 21:19:00 61.236 kg WEIGHT 2020-08-26 07:00:00 62.37 kg HEIGHT 2020-08-26 06:04:00 167.6 cm WEIGHT 2020-08-26 06:04:00 62.143 kg WEIGHT 2020-08-25 08:00:00 62.188 kg WEIGHT 2020-08-24 06:26:00 63.005 kg WEIGHT 2020-08-23 05:00:00 63.594 kg WEIGHT 2020-08-22 08:39:00 63.594 kg WEIGHT 2020-08-19 04:01:00 61.236 kg WEIGHT 2020-08-18 05:45:00 65.953 kg WEIGHT 2020-08-15 06:48:00 61.462 kg HEIGHT 2020-08-09 21:19:00 167.6 cm WEIGHT 2020-08-09 21:19:00 61.236 kg Procedures This patient has no known procedures. Encounters Start End Encounter Admission Attending Care Care Encounter Source Date/Time Date/Time Type Type Clinicians Facility Department ID 2020-08-08 2020-08-08 Emergency ER [facility] Emergency [id number] [facility] 22:10:00 22:10:00 Results Test Description Test Time Test Comments Results Result Comments Source VANCOMYCIN LEVEL, TROUGH 2020-08-26 11:37:00 Test Item Value Reference Range Interpretation Comme nts VANCOMYCIN TROUGH (DEDRA) (test code = 522) 15.8 ug/mL 10.0-20.0 Senior Economist ID - CAROLYNN CPROTHROMBIN TIME/[id number] 04:41:00 Test Item Value Reference Range Interpretation [...] for patients wiht mechanical heart valves.While on warfarin.[id number] 04:00:00 Test Item Value Reference Range Interpretation Comments MAGNESIUM (BEAKER) 2.0 mg/dL 1.6-2.6 Specimen slightly (test code = 627) hemolyzed Senior Economist ROSARIO BLACKWELL WBASIC METABOLIC [id number] 04:00:00 Test Item Value Reference Range Interpretation [...] 697) EGFR (BEAKER) (test 62 mL/min/1.73 ESTIMA TEN GFR IS code = 1092) sq m NOT ACCURATE CREATININE CLEARANCE IN PREDICTING GLOMERULAR FILTRATION RATE . ESTIMATED GFR I S NOT APPLICABLE FOR DIALYSIS PATIEN TS. Senior Economist ROSARIO BLACKWELL WCBC (HEMOGRAM ONLY)2020-08-26 03:21:00 Test Item Value Reference [...] (BEAKER) (test code = 413) BASIC METABOLIC [id number] 08:10:00 Test Item Value Reference Range Interpretation [...] 697) EGFR (BEAKER) (test 74 mL/min/1.73 ESTIMA TEN GFR IS code = 1092) sq m NOT ACCURATE CREATININE CLEARANCE IN PREDICTING GLOMERULAR FILTRATION RATE . ESTIMATED GFR I S NOT APPLICABLE FOR DIALYSIS PATIEN TS. Senior Economist ID - MIKE [id number] 08:10:00 Test Item Value Reference Range Interpretation Comments MAGNESIUM (BEAKER) (test code = 1.9 mg/dL 1.6-2.6 627) Senior Economist ID - MIKE MPROTHROMBIN TIME/[id number] 06:19:00 Test Item Value Reference Range Interpretation [...] (BEAKER) (test code = 413) VANCOMYCIN LEVEL, [id number] 10:41:00 Test Item Value Reference Range Interpretation Comments VANCOMYCIN TROUGH (BEAKER) (test 12.3 ug/mL 10.0-20.0 code = 522) Senior Economist ROSARIO SAMUEL FBASIC METABOLIC [id number] 06:40:00 Test Item Value Reference Range Interpretation [...] 697) EGFR (BEAKER) (test 70 mL/min/1.73 ESTIMA TEN GFR IS code = 1092) sq m NOT ACCURATE CREATININE CLEARANCE IN PREDICTING GLOMERULAR FILTRATION RATE . ESTIMATED GFR I S NOT APPLICABLE FOR DIALYSIS PATIEN TS. Senior Economist ID - MIKE [id number] 06:40:00 Test Item Value Reference Range Interpretation Comments MAGNESIUM (BEAKER) (test code = 1.8 mg/dL 1.6-2.6 627) Senior Economist ID - MIKE MPROTHROMBIN TIME/[id number] 05:59:00 Test Item Value Reference Range Interpretation [...] 0-0 (BEAKER) (test code = 413) BLOOD [id number] 13:00:00 Test Item Value Reference Range Interpretation Comments CULTURE (BEAKER) (test No growth in 5 days code = 1095) BLOOD [id number] 13:00:00 Test Item Value Reference Range Interpretation Comments CULTURE (BEAKER) (test No growth in 5 days code = 1095) BASIC METABOLIC [id number] 08:46:00 Test Item Value Reference Range Interpretation [...] 697) EGFR (BEAKER) (test 74 mL/min/1.73 ESTIMA TEN GFR IS code = 1092) sq m NOT ACCURATE CREATININE CLEARANCE IN PREDICTING GLOMERULAR FILTRATION RATE . ESTIMATED GFR I S NOT APPLICABLE FOR DIALYSIS PATIEN TS. Senior Economist ID - MIKE [id number] 08:46:00 Test Item Value Reference Range Interpretation Comments MAGNESIUM (BEAKER) (test code = 1.8 mg/dL 1.6-2.6 627) Senior Economist ID - MIKE MBLOOD [id number] 08:32:00 Test Item Value Reference Range Interpretation [...] gram = 1123) positive cocci in clusters SARS-COV2/RT-PCR ([facility])2020-08-23 06:37:00 Test Item Value Reference Range Interpretation Comments SARS-COV2/RT-PCR (test Negative Not Detected, Negative, code = 9229047) See external report for linked test SARS-COV-[address] [facility] CHRIS (test code = 6544821) Negative result for this test determines that [...] 564(g) of the Act.Fact Sheet for Healthcare Providers:https://www.Zutux.Ideapod/sites/default/files/product/documents/Fact_Shee h_ZQ_Kexoiioog_Nmvx_CLAO-BxW-8.pdfFact Sheet for Healthcare Patients:https://www.Zutux.Ideapod/sites/default/files/product/ documents/Lgfz_Prrmi_Uyyezeob_Lrxe_RMRQ-WqZ-0.pdfPerforming Laboratory:[facility], [place] [id number] TIME/INR 2020-08-23 06:23:00 Test Item Value Reference Range Interpretation [...] = 413) RAD, CHEST, 1 VIEW, NON [id number] 14:12:00Reason for exam:->chest painShould this be performed at the bedside?->Yes [facility] 1960 Sex: FFINAL REPORT RAD, CHEST, 1 VIEW, NON DEPT INDICATION: chest pain COMPARISON: 08/21/2020 FINDINGS: Portable frontal view of the chest. IMPRESSION: Support Lines: PICC tip overlies the atriocaval junction Lungs and pleura: Mild bibasilar atelectasis. No focal pneumonia. No pneumothorax.Heart and mediastinum: Stable contours. Stable surgical changes.Additional findings: None. Signed: Dodie Mooreeport Verified Date/Time: 08/22/2020 14:12:21 Reading Location: [facility] Radiology Reading Room BASI METABOLIC PANEL 2020-08-22 07:19:00 Test Item Value Reference Range Interpretation [...] 697) EGFR (BEAKER) (test 86 mL/min/1.73 ESTIMA ETN GFR IS code = 1092) sq m NOT ACCURATE CREATININE CLEARANCE IN PREDICTING GLOMERULAR FILTRATION RATE . ESTIMATED GFR I S NOT APPLICABLE FOR DIALYSIS PATIEN TS. Senior Economist ID - DHIRAJ [id number] 07:19:00 Test Item Value Reference Range Interpretation Comments MAGNESIUM (BEAKER) (test code = 1.7 mg/dL 1.6-2.6 627) Senior Economist ID - DHIRAJ LPROTHROMBIN TIME/[id number] 05:47:00 Test Item Value Reference Range Interpretation [...] = 413) RAD, CHEST, 1 VIEW, NON [id number] 10:44:00Reason for exam:->PICC LINE PLACEMENTShould this be performed at the bedside?->Yes [facility] 1960 Sex: FFINAL REPORT EXAM: Chest one view COMPARISON: August 17, 2020 CLINICAL HISTORY: PICC insertion FINDINGS: There is interval insertion of a left arm PICC with its tip overlying the caval atrial junction. The cardiac size is within normal limits. There is no evidence of pulmonary consolidation, pleural effusion, or pneumothorax. The regional osseous structures are unremarkable. Signed: Delia Powers MDReport Verified Date/Time: 08/21/2020 10:44:24 Reading Location: [address] Transitional Reading Room BASIC METABOLIC PANEL [...] 697) EGFR (BEAKER) (test 80 mL/min/1.73 ESTIMA TEN GFR IS code = 1092) sq m NOT ACCURATE CREATININE CLEARANCE IN PREDICTING GLOMERULAR FILTRATION RATE . ESTIMATED GFR I S NOT APPLICABLE FOR DIALYSIS PATIEN TS. Senior Economist ID - DHIRAJ [id number] 06:32:00 Test Item Value Reference Range Interpretation Comments MAGNESIUM (BEAKER) (test code = 1.7 mg/dL 1.6-2.6 627) Senior Economist ID - DHIRAJ LPROTHROMBIN TIME/[id number] 05:46:00 Test Item Value Reference Range Interpretation [...] 0-0 (BEAKER) (test code = 413) BLOOD [id number] 11:12:00 Test Item Value Reference Range Interpretation [...] gram 1123) positive cocci in clusters BLOOD [id number] 11:10:00 Test Item Value Reference Range Interpretation [...] bottles: gram 1123) positive cocci in clusters [id number] 06:49:00 Test Item Value Reference Range Interpretation Comments PARTIAL THROMBOPLASTIN TIME 66.1 seconds 22.5-36.0 H (BEAKER) (test code = 760) [id number] 05:54:00 Test Item Value Reference Range Interpretation Comments CORTISOL, TOTAL (BEAKER) (test code 1.3 ug/dL 3.7-19.4 L = 2755) Senior Economist ID - EDASIVANCOMYCIN LEVEL, [id number] 05:29:00 Test Item Value Reference Range Interpretation Comments VANCOMYCIN RANDOM (BEAKER) (test 11.5 ug/mL code = 523) Reference Range: No NormalsOperator ID - MIKE [id number] 04:51:00 Test Item Value Reference Range Interpretation Comments PARTIAL THROMBOPLASTIN TIME 171.9 seconds 22.5-36.0 HH (BEAKER) (test code = 760) While on warfarin.BASIC METABOLIC [id number] 04:25:00 Test Item Value Reference Range Interpretation [...] 697) EGFR (BEAKER) (test 80 mL/min/1.73 ESTIMA TEN GFR IS code = 1092) sq m NOT ACCURATE CREATININE CLEARANCE IN PREDICTING GLOMERULAR FILTRATION RATE . ESTIMATED GFR I S NOT APPLICABLE FOR DIALYSIS PATIEN TS. Senior Economist ID - EDASIPROTHROMBIN TIME/[id number] 04:17:00 Test Item Value Reference Range Interpretation [...] for patients wiht mechanical heart valves.While on warfarin.[id number] 04:11:00 Test Item Value Reference Range Interpretation Comments MAGNESIUM (BEAKER) (test code = 1.7 mg/dL 1.6-2.6 627) Senior Economist ID - EDASICBC (HEMOGRAM ONLY)2020-08-20 03:51:00 Test [...] WBC 0-0 (BEAKER) (test code = 413) [id number] 18:55:00 Test Item Value Reference Range Interpretation Comments PARTIAL THROMBOPLASTIN TIME 60.3 seconds 22.5-36.0 H (BEAKER) (test code = 760) [id number] 11:08:00 Test Item Value Reference Range Interpretation Comments MAGNESIUM (BEAKER) 1.7 mg/dL 1.6-2.6 Specimen slightly (test code = 627) hemolyzed Senior Economist ID - EDASIBASIC METABOLIC [id number] 11:08:00 Test Item Value Reference Range Interpretation [...] 697) EGFR (BEAKER) (test 75 mL/min/1.73 ESTIMA TEN GFR IS code = 1092) sq m NOT ACCURATE CREATININE CLEARANCE IN PREDICTING GLOMERULAR FILTRATION RATE . ESTIMATED GFR I S NOT APPLICABLE FOR DIALYSIS PATIEN TS. Senior Economist ID - EDASIVANCOMYCIN LEVEL, [id number] 11:05:00 Test Item Value Reference Range Interpretation Comments VANCOMYCIN TROUGH (BEAKER) (test 27.4 ug/mL 10.0-20.0 H code = 522) Senior Economist ID - [id number] 11:05:00 Test Item Value Reference Range Interpretation Comments PARTIAL THROMBOPLASTIN TIME 62.3 seconds 22.5-36.0 H (BEAKER) (test code = 760) While on warfarin.PROTHROMBIN TIME/[id number] 11:04:00 Test Item Value Reference Range Interpretation [...] WBC 0-0 (BEAKER) (test code = 413) [id number] 22:03:00 Test Item Value Reference Range Interpretation Comments PARTIAL THROMBOPLASTIN TIME 73.4 seconds 22.5-36.0 H (BEAKER) (test code = 760) BASIC METABOLIC [id number] 12:50:00 Test Item Value Reference Range Interpretation [...] 697) EGFR (BEAKER) (test 71 mL/min/1.73 ESTIMA TEN GFR IS code = 1092) sq m NOT ACCURATE CREATININE CLEARANCE IN PREDICTING GLOMERULAR FILTRATION RATE . ESTIMATED GFR I S NOT APPLICABLE FOR DIALYSIS PATIEN TS. Senior Economist ID - [id number] 12:50:00 Test Item Value Reference Range Interpretation Comments MAGNESIUM (BEAKER) (test code = 1.7 mg/dL 1.6-2.6 627) Senior Economist ID - AAHAMIDVANCOMYCIN LEVEL, [id number] 12:49:00 Test Item Value Reference Range Interpretation Comments VANCOMYCIN TROUGH (BEAKER) (test 15.6 ug/mL 10.0-20.0 code = 522) Senior Economist ID - [id number] 12:33:00 Test Item Value Reference Range Interpretation Comments PARTIAL THROMBOPLASTIN TIME 76.0 seconds 22.5-36.0 H (BEAKER) (test code = 760) PROTHROMBIN TIME/[id number] 07:04:00 Test Item Value Reference Range Interpretation [...] WBC 0-0 (BEAKER) (test code = 413) [id number] 01:47:00 Test Item Value Reference Range Interpretation Comments PARTIAL THROMBOPLASTIN TIME 37.7 seconds 22.5-36.0 H (BEAKER) (test code = 760) [id number] 22:54:00 Test Item Value Reference Range Interpretation [...] WBC 0-0 (BEAKER) (test code = 413) URINALYSIS W/ REFLEX URINE [id number] 16:12:00 Test Item Value Reference Range Interpretation [...] = 1584) SOURCE(BEAKER) (test code = 2795) Senior Economist ID - [auto]Senior Economist ID - [id number] 14:59:00 Test Item Value Reference Range Interpretation Comments PARTIAL THROMBOPLASTIN TIME 85.2 seconds 22.5-36.0 H (BEAKER) (test code = 760) RAD, CHEST, 1 VIEW, NON [id number] 07:41:00Reason for exam:->feverShould this be performed at the bedside?->Yes [facility] : 1960 Sex: FFINAL REPORT CLINICAL HISTORY: fever TECHNIQUE: 1 view of the chest. COMPARISON: 08/08/2020 IMPRESSION: There are no focal infiltrates or effusions. The cardiomediastinal silhouette is unchanged poststernotomy. Signed: Marie Lovell Verified Date/Time: 08/17/2020 07:41:21 Reading Location: [facility] Radiology Reading Room CBC (HEMOGRAM ONLY)2020-08-17 06:12:00 [...] 0-0 (BEAKER) (test code = 413) PROTHROMBIN TIME/[id number] 05:40:00 Test Item Value Reference Range Interpretation [...] for patients wiht mechanical heart valves.While on warfarin.COMPREHENSIVE METABOLIC [id number] 00:20:00 Test Item Value Reference Range Interpretation [...] 347) EGFR (BEAKER) (test 58 mL/min/1.73 ESTIMA TEN GFR IS code = 1092) sq m NOT ACCURATE CREATININE CLEARANCE IN PREDICTING GLOMERULAR FILTRATION RATE . ESTIMATED GFR I S NOT APPLICABLE FOR DIALYSIS PATIEN TS. Senior Economist ID - DHIRAJ [id number] 00:02:00 Test Item Value Reference Range Interpretation Comments PARTIAL THROMBOPLASTIN TIME 93.3 seconds 22.5-36.0 H (BEAKER) (test code = 760) LACTIC ACID, [id number] 23:59:00 Test Item Value Reference Range Interpretation Comments LACTATE BLOOD VENOUS (2) (BEAKER) 1.55 mmol/L 0.50-2.20 (test code = 2872) Senior Economist ID - DHIRAJ LCBC W/PLT COUNT & AUTO [id number] 23:53:00 Test Item Value Reference Range Interpretation [...] 0-1 PERCENT (BEAKER) (test code = 2801) [id number] 17:15:00 Test Item Value Reference Range Interpretation Comments ACTIVATED CLOTTING TIME 241 sec : 74 -137 seconds, (BEAKER) (test code = Baseli ne: TESTED AT 441) [facility] [address] [facility] [place], [address]: Senior Economist/Techni sandee ID = [id number] for RANDELL LUIS RN, DOMENIC [id number] 11:16:00 Test Item Value Reference Range Interpretation Comments PARTIAL THROMBOPLASTIN TIME 80.2 seconds 22.5-36.0 H (BEAKER) (test code = 760) While on warfarin.PROTHROMBIN TIME/[id number] 11:15:00 Test Item Value Reference Range Interpretation [...] for patients wiht mechanical heart valves.While on warfarin.MR, SPINE, LUMBAR, WITHOUT [id number] 07:05:00Unlisted Reason for Exam - Click Yes and Enter Reason Below->No [facility] : 1960 Sex: FFINAL [...] MDReport Verified Date/Time: 08/16/2020 07:05:14 Reading Location: [address] Neuro Reading Room [id number] 03:27:00 Test Item Value Reference Range Interpretation [...] 0-0 (BEAKER) (test code = 413) SARS-COV2/RT-PCR ([facility])2020-08-15 20:12:00 Test Item Value Reference Range Interpretation Comments SARS-COV2/RT-PCR (test Negative Not Detected, Negative, code = 6396951) See external report for linked test SARS-COV-[address] [facility]IS (test code = 9246586) Negative result for this test determines that [...] individuals suspected of COVID-19 by their healthcare provider.This test [...] 564(g) of the Act.Fact Sheet for Healthcare Providers:https://www.XTWIPidel.com/sites/default/files/product/documents/Fact_Shee x_VO_Jfqbeyuyr_Btuw_PMGG-PgU-0.pdfFact Sheet for Healthcare Patients:https://www.Zutux.com/sites/default/files/product/ documents/Ulyv_Frrbj_Onvdxhxy_Xsbr_RKLC-CsC-5.pdfPerforming Laboratory:[facility], [place] [id number] 15:32:00 Test Item Value Reference Range Interpretation [...] WBC 0-0 (BEAKER) (test code = 413) [id number] 06:27:00 Test Item Value Reference Range Interpretation Comments PARTIAL THROMBOPLASTIN TIME 95.5 seconds 22.5-36.0 H (BEAKER) (test code = 760) While on warfarin.PROTHROMBIN TIME/[id number] 06:25:00 Test Item Value Reference Range Interpretation [...] WBC 0-0 (BEAKER) (test code = 413) [id number] 20:44:00 Test Item Value Reference Range Interpretation [...] WBC 0-0 (BEAKER) (test code = 413) [id number] 19:10:00 Test Item Value Reference Range Interpretation Comments PARTIAL THROMBOPLASTIN TIME 135.1 seconds 22.5-36.0 H (BEAKER) (test code = 760) [id number] 11:18:00 Test Item Value Reference Range Interpretation Comments PARTIAL THROMBOPLASTIN TIME 101.6 seconds 22.5-36.0 H (BEAKER) (test code = 760) [id number] 09:37:00 Test Item Value Reference Range Interpretation Comments PARTIAL THROMBOPLASTIN TIME > seconds 22.5-36.0 HH (BEAKER) (test code = 760) CT, SPINE, LUMBAR, [id number] 08:35:00Unlisted Reason for Exam - Click Yes and Enter Reason Below->YesUnlisted Reason for Exam->LLE pain evalaute for radiculopathy [facility] : 1960 Sex: FFINAL [...] height loss is present, most conspicuous at L4-T8Lucdrigguuf images of the spinal canal demonstrate no [...] at L3-L4,L4-L5 and L5-S1 described above. Signed: Dodie Mooreeport Verified Date/Time: 08/14/2020 08:35:08 Reading Location: [facility] C013V Neuro Reading Room PROTHROMBIN TIME/[id number] 06:56:00 Test Item Value Reference Range Interpretation [...] WBC 0-0 (BEAKER) (test code = 413) [id number] 23:23:00 Test Item Value Reference Range Interpretation Comments PARTIAL THROMBOPLASTIN TIME 48.5 seconds 22.5-36.0 H (BEAKER) (test code = 760) BASIC METABOLIC [id number] 23:04:00 Test Item Value Reference Range Interpretation [...] 697) EGFR (BEAKER) (test 71 mL/min/1.73 ESTIMA TEN GFR IS code = 1092) sq m NOT ACCURATE CREATININE CLEARANCE IN PREDICTING GLOMERULAR FILTRATION RATE . ESTIMATED GFR I S NOT APPLICABLE FOR DIALYSIS PATIEN TS. Senior Economist ID - DBPOCT-GLUCOSE [id number] 18:16:00 Test Item Value Reference Range Interpretation Comments POC-GLUCOSE METER 90 mg/dL 70-110 : TESTED A T [facility] [address] (BEAKER) (test code = CATHERINE JORDAN, 1538) [address]: Senior Economist/Techni sandee ID = [id number] for RAJENDRA BONNER POCT-GLUCOSE [id number] 12:53:00 Test Item Value Reference Range Interpretation Comments POC-GLUCOSE METER 129 mg/dL 70-110 H : TESTED A T [facility] [address] (BEAKER) (test code = CATHERINE Ricci [facility], 1538) [address]: Senior Economist/Techni sandee ID = [id number] for RAJENDRA SPENCER [id number] 12:31:00 Test Item Value Reference Range Interpretation Comments PARTIAL THROMBOPLASTIN TIME 59.7 seconds 22.5-36.0 H (BEAKER) (test code = 760) POCT-GLUCOSE [id number] 08:55:00 Test Item Value Reference Range Interpretation Comments POC-GLUCOSE METER 125 mg/dL 70-110 H : [facility] (test code = CATHERINE Ricci [facility], 1538) [address]: Senior Economist/Techni sandee ID = [id number] for RAJENDRA SPENCER [id number] 06:51:00 Test Item Value Reference Range Interpretation Comments PARTIAL THROMBOPLASTIN TIME 81.5 seconds 22.5-36.0 H (BEAKER) (test code = 760) While on warfarin.PROTHROMBIN TIME/[id number] 06:49:00 Test Item Value Reference Range Interpretation [...] 0-0 (BEAKER) (test code = 413) POCT-GLUCOSE [id number] 21:47:00 Test Item Value Reference Range Interpretation Comments POC-GLUCOSE METER 106 mg/dL 70-110 : TESTED A T [facility] [address] (BEAKER) (test code = CATHERINE HELLER [place], 1538) [address]: Senior Economist/Techni sandee ID = [id number] for Shayy Schumacher [id number] 21:23:00 Test Item Value Reference Range Interpretation Comments PARTIAL THROMBOPLASTIN TIME 39.9 seconds 22.5-36.0 H (BEAKER) (test code = 760) [id number] 09:33:00 Test Item Value Reference Range Interpretation Comments PARTIAL THROMBOPLASTIN TIME 68.3 seconds 22.5-36.0 H (BEAKER) (test code = 760) PROTHROMBIN TIME/[id number] 06:46:00 Test Item Value Reference Range Interpretation [...] WBC 0-0 (BEAKER) (test code = 413) [id number] 00:29:00 Test Item Value Reference Range Interpretation [...] WBC 0-0 (BEAKER) (test code = 413) [id number] 16:03:00 Test Item Value Reference Range Interpretation Comments PARTIAL THROMBOPLASTIN TIME 33.6 seconds 22.5-36.0 (BEAKER) (test code = 760) Prior to initiating heparinCBC (HEMOGRAM ONLY)2020-08-11 15:55:00 Test Item Value Reference [...] 0-0 (BEAKER) (test code = 413) PLATELET [id number] 15:55:00 Test Item Value Reference Range Interpretation Comments PLATELET COUNT (BEAKER) (test 518 K/CU MM 150-450 H code = 756) HEMOGLOBIN AND [id number] 09:12:00 Test Item Value Reference Range Interpretation Comments HEMOGLOBIN (BEAKER) (test code = 9.6 GM/DL 11.2-15.7 L 410) HEMATOCRIT (BEAKER) (test code = 31.3 % 34.1-44.9 L 411) Senior Economist ID - 6000POCT-GLUCOSE [id number] 06:52:00 Test Item Value Reference Range Interpretation Comments POC-GLUCOSE METER 94 mg/dL 70-110 : TESTED A T [facility] [address] (BEAKER) (test code = CATHERINE HELLER [place], 1538) [address]: Senior Economist/Techni sandee ID = [id number] for JOHN MCKEON PROTHROMBIN TIME/[id number] 04:49:00 Test Item Value Reference Range Interpretation [...] for patients wiht mechanical heart valves.While on warfarin.OCCULT BLOOD, STOOL 2020-08-10 20:26:00 Test Item Value Reference Range Interpretation Comments FECAL OCCULT BLOOD (BEAKER) (test Positive Negative A code = 618) POCT-GLUCOSE [id number] 18:07:00 Test Item Value Reference Range Interpretation Comments POC-GLUCOSE METER 98 mg/dL 70-110 : TESTED A T [facility] 67[address] (BEAKER) (test code = [facility], 1538) [address]: Senior Economist/Techni sandee ID = [id number] for MARK CARO POCT-GLUCOSE [id number] 12:56:00 Test Item Value Reference Range Interpretation Comments POC-GLUCOSE METER 112 mg/dL 70-110 H : TESTED A T [facility] [address] (BEAKER) (test code = [facility], 1538) [address]: Senior Economist/Techni sandee ID = [id number] for MARK DEY POCT-GLUCOSE [id number] 09:51:00 Test Item Value Reference Range Interpretation Comments POC-GLUCOSE METER 97 mg/dL 70-110 : TESTED A T [facility] [address] (BEAKER) (test code = [facility], 1538) [address]: Senior Economist/Techni sandee ID = [id number] for MARK CARO BASIC METABOLIC [id number] 08:57:00 Test Item Value Reference Range Interpretation [...] 697) EGFR (BEAKER) (test 85 mL/min/1.73 ESTIMA TEN GFR IS code = 1092) sq m NOT ACCURATE CREATININE CLEARANCE IN PREDICTING GLOMERULAR FILTRATION RATE . ESTIMATED GFR I S NOT APPLICABLE FOR DIALYSIS PATIEN TS. Senior Economist ID - ADMINPROTHROMBIN TIME/[id number] 08:55:00 Test Item Value Reference Range Interpretation [...] mechanical heart valves.CBC W/PLT COUNT & AUTO [id number] 08:45:00 Test Item Value Reference Range Interpretation [...] PERCENT (BEAKER) (test code = 2801) POCT-GLUCOSE [id number] 07:00:00 Test Item Value Reference Range Interpretation Comments POC-GLUCOSE METER 82 mg/dL 70-110 : TESTED A T [facility] 6720 (BEAKER) (test code = [facility], 1538) [address]: Senior Economist/Techni sandee ID = [id number] for FABY MOORE TROPONIN [id number] 13:30:00 Test Item Value Reference Range Interpretation [...] failure, acidosis, acute neurological disease, and persistent tachyarrhythmia.Senior Economist ID - LIZZIE FPOCT-GLUCOSE [id number] 12:43:00 Test Item Value Reference Range Interpretation Comments POC-GLUCOSE METER 100 mg/dL 70-110 : TESTED A T [facility] 6720 (BEAKER) (test code = [facility], 1538) 20021: Senior Economist/Techni sandee ID = [id number] for Benito Contreras [id number] 07:10:00 Test Item Value Reference Range Interpretation Comments FERRITIN (BEAKER) (test code = 222.98 ng/mL 5.00-275.00 361) Senior Economist ID - RISHI [id number] 05:42:00 Test Item Value Reference Range Interpretation Comments HAPTOGLOBIN (DEDRA) (test code = 91 mg/dL 37-880 344) Senior Economist ID - RISHI WSARS-COV2/INFLUENZA/RSV [id number] 05:13:00 Test Item Value Reference Range Interpretation Comments SARS-COV2/RT-PCR Negative Negative (test code = 9328831) INFLUENZA A RT-PCR Negative Negative (test code = 2488766) INFLUENZA B RT-PCR Negative Negative (test code = 3352165) RSV RT-PCR (test Negative Negative Performanc e of the Xpert code = 7934549) Xpress SARS- CoV-2/Flu/RSV test has only b [...] patien t management deci sions. Results from e Xpert Xpress SARS-CoV -2/Flu/RSV test should be correlated with the clinic al history, epidem iological data, and other data available to e clinician evalu ating the patient. Inval id test results may occ ur from improper specim en collection; tran lure to follow the moncho mmended sample collecti on, handling, and s torage procedures; neri hnical error. False ne gative results may occ ur if virus is presen t at levels below e analytical limi t of detection (LOD: [...] sooner.Fact She et for Healthcare Prov iders: https://www.bCODE/D SceneChatuments/Xpert% 20Xpress%2 0CKYF-HaK-6-Flu -RSV/302-4 508%20Rev.%20B% 20HCP%20Fa ct%20Sheet.pdfF act Sheet for Healthcare Patients: https://www.bCODE/D ocuments/Xpert% 20Xpress%2 5NYEW-GyA-9-Flu -RSV/302-4 507%20Rev.%20B% 20Patient% 20Fact%20Sheet. pdf TROPONIN [id number] 04:58:00 Test Item Value Reference Range Interpretation [...] failure, acidosis, acute neurological disease, and persistent tachyarrhythmia.Senior Economist ID - RISHI DELUCA, TIBC, % SAT. (WITHOUT FERRITIN)2020-08-09 04:55:00 Test Item Value Reference Range Interpretation Comments IRON (BEAKER) (test code = 547) 31.0 ug/dL 40.0-160.0 L TOTAL IRON BINDING CAPACITY 338 ug/dL 250-450 (BEAKER) (test code = 769) IRON % SATURATION (2) (BEAKER) 9 % 20-55 L (test code = 2590) Senior Economist ID Dannie BLACKWELL WBASIC METABOLIC [id number] 04:53:00 Test Item Value Reference Range Interpretation [...] 697) EGFR (BEAKER) (test 86 mL/min/1.73 ESTIMA TEN GFR IS code = 1092) sq m NOT ACCURATE CREATININE CLEARANCE IN PREDICTING GLOMERULAR FILTRATION RATE . ESTIMATED GFR I S NOT APPLICABLE FOR DIALYSIS PATIEN TS. Senior Economist ID Dannie BLACKWELL WHEPATIC FUNCTION [id number] 04:53:00 Test Item Value Reference Range Interpretation Comments TOTAL PROTEIN (BEAKER) (test code = 6.9 gm/dL 6.0-8.3 770) ALBUMIN (BEAKER) (test code = 1145) 3.4 g/dL 3.5-5.0 L BILIRUBIN TOTAL (BEAKER) (test code 0.5 mg/dL 0.2-1.2 = 377) BILIRUBIN DIRECT (BEAKER) (test 0.2 mg/dL 0.1-0.5 code = 706) ALKALINE PHOSPHATASE (BEAKER) (test 67 U/L 40-150 code = 346) AST (SGOT) (BEAKER) (test code = 42 U/L 5-34 H 353) ALT (SGPT) (BEAKER) (test code = 19 U/L 6-55 347) Senior Economist ID Dannie BLACKWELL WPROTHROMBIN TIME/[id number] 04:46:00 Test Item Value Reference Range Interpretation Comments PROTIME (BEAKER) (test code = 55.5 seconds 11.9-14.2 H 759) INR (BEAKER) (test code = 370) 6.47 <=5.90 HH Effective 12/31/2018: PT Reference Range ChangeNew: 11.9-14.2 Previous: 11.7- 14.7RECOMMENDED COUMADIN/WARFARIN INR THERAPY RANGESSTANDARD DOSE: 2.0-3.0 Includes: PROPHYLAXIS for venous thrombosis, systemic embolization; TREATMENT for venous thrombosis and/or pulmonary embolus.HIGH RISK: Target INR is2.5-3.5 for patients wiht mechanical heart valves.CBC W/PLT COUNT & AUTO [id number] 04:45:00 Test Item Value Reference Range Interpretation [...] 0-1 PERCENT (BEAKER) (test code = 2801) PT/[id number] 04:45:00 Test Item Value Reference Range Interpretation [...] INR is2.5-3.5 for patients wiht mechanical heart valves.[id number] 04:40:00 Test Item Value Reference Range Interpretation [...] exclusion of thrombosis is within 95-100% range. LACTATE DEHYDROGENASE (LDH)2020-08-09 04:34:00 Test Item Value Reference Range Interpretation Comments LACTATE DEHYDROGENASE 706 U/L 125-220 H Specim en slightly (DEDRA) (test code = hemoly zed 635) Senior Economist ID - RISHI NATHAN, CHEST, 1 VIEW, NON [id number] 23:34:00Reason for exam:->CHEST PAINShould this be performed at the bedside?->Yes [facility] : 1960 Sex: FFINAL [...] repair.Additional findings: No acute osseous normality. Signed: Mary Jo Hamilton Verified Date/Time: 08/08/2020 23:34:25 CBC W/PLT COUNT & AUTO [id number] 23:31:00 Test Item Value Reference Range Interpretation [...] 0-1 PERCENT (BEAKER) (test code = 2801) B-TYPE NATRIURETIC FACTOR (BNP)2020-08-08 23:30:00 Test Item Value Reference Range Interpretation Comments B-TYPE NATRIURETIC PEPTIDE (BEAKER) 235 pg/mL 0-100 H (test code = 700) Senior Economist ID - DBTROPONIN [id number] 23:29:00 Test Item Value Reference Range Interpretation [...] failure, acidosis, acute neurological disease, and persistent tachyarrhythmia.Senior Economist ID - DBBASIC METABOLIC PANEL 2020-08-08 23:24:00 [...] 697) EGFR (BEAKER) (test 75 mL/min/1.73 ESTIMA TEN GFR IS code = 1092) sq m NOT ACCURATE CREATININE CLEARANCE IN PREDICTING GLOMERULAR FILTRATION RATE . ESTIMATED GFR I S NOT APPLICABLE FOR DIALYSIS PATIEN TS. Senior Economist ID - DBPROTHROMBIN TIME/[id number] 06:03:00 Test Item Value Reference Range Interpretation [...] valves.While on warfarin.CBC W/PLT COUNT & AUTO [id number] 06:20:00 Test Item Value Reference Range Interpretation [...] PERCENT (BEAKER) (test code = 2801) PROTHROMBIN TIME/[id number] 06:35:00 Test Item Value Reference Range Interpretation [...] for patients wiht mechanical heart valves.OCCULT BLOOD, [id number] 23:23:00 Test Item Value Reference Range Interpretation Comments FECAL OCCULT BLOOD (BEAKER) (test Negative Negative code = 618) PROTHROMBIN TIME/[id number] 07:00:00 Test Item Value Reference Range Interpretation [...] mechanical heart valves.CBC W/PLT COUNT & AUTO [id number] 06:52:00 Test Item Value Reference Range Interpretation [...] code = 2801) MYOCARD IMAGING, MULTI, PHARM, [id number] 16:05:00FINAL REPORT PROCEDURE: MYOCARDIAL PERFUSION SPECT IMAGING (Rest/Stress)CPT CODE: 83262 INDICATION: Elevated troponin CARDIOVASCULAR PROFILE:CAD History: NoneSymptoms: [...] prior study for comparison. Signed: Brigido Hoover MDReport Verified Date/Time: 01/12/2019 16:05:30 Reading Location: [place] [id number] Reading Room [id number] 08:57:00 Test Item Value Reference Range Interpretation Comments THYROID STIMULATING HORMONE 1.50 uIU/mL 0.35-4.94 (BEAKER) (test code = 772) [id number] 08:56:00 Test Item Value Reference Range Interpretation Comments T4 TOTAL (BEAKER) (test code = 895) 7.9 ug/dL 4.9-11.7 PROTHROMBIN TIME/[id number] 03:12:00 Test Item Value Reference Range Interpretation [...] (BEAKER) (test code = 413) BASIC METABOLIC [id number] 14:05:00 Test Item Value Reference Range Interpretation [...] NOT APPLICABLE FOR DIALYSIS PATIEN TS. TROPONIN [id number] 09:07:00 Test Item Value Reference Range Interpretation [...] acidosis, acute neurological disease, and persistent tachyarrhythmia.TROPONIN [id number] 06:51:00 Test Item Value Reference Range Interpretation [...] acute neurological disease, and persistent tachyarrhythmia.BASIC METABOLIC [id number] 06:51:00 Test Item Value Reference Range Interpretation [...] S NOT APPLICABLE FOR DIALYSIS PATIEN TS. [id number] 06:44:00 Test Item Value Reference Range Interpretation Comments MAGNESIUM (BEAKER) (test code = 1.8 mg/dL 1.6-2.6 627) [id number] 04:26:00 Test Item Value Reference Range Interpretation [...] heparin sliding scalePer heparin sliding scaleHEMOGLOBIN AND [id number] 04:15:00 Test Item Value Reference Range Interpretation Comments HEMOGLOBIN (BEAKER) (test code = 9.5 GM/DL 11.2-15.7 L 410) HEMATOCRIT (BEAKER) (test code = 30.2 % 34.1-44.9 L 411) TROPONIN [id number] 22:28:00 Test Item Value Reference Range Interpretation [...] failure, acidosis, acute neurological disease, and persistent tachyarrhythmia.PT/[id number] 22:15:00 Test Item Value Reference Range Interpretation [...] scalePer heparin sliding scaleRAD, ABDOMEN/KUB, 1 VIEW [id number] 18:44:00Reason for exam:->vomitingFINAL REPORT Abdomen dated January [...] MDReport Verified Date/Time: 01/10/2019 18:44:41 Reading Location: [facility] B1 C013Y CT Body Reading Room [id number] 14:44:00 Test Item Value Reference Range Interpretation Comments MAGNESIUM (BEAKER) (test code = 1.6 mg/dL 1.6-2.6 627) BASIC METABOLIC [id number] 14:44:00 Test Item Value Reference Range Interpretation [...] NOT APPLICABLE FOR DIALYSIS PATIEN TS. TROPONIN [id number] 14:44:00 Test Item Value Reference Range Interpretation [...] H PERCENT (BEAKER) (test code = 2801) [id number] 13:25:00 Test Item Value Reference Range Interpretation Comments AMYLASE (BEAKER) (test code = 349) 29 U/L 25-125 [id number] 13:25:00 Test Item Value Reference Range Interpretation Comments LIPASE (BEAKER) (test code = 749) 16 U/L 8-78 [id number] 13:24:00 Test Item Value Reference Range Interpretation Comments PARTIAL THROMBOPLASTIN TIME 41.1 seconds 22.5-36.0 H (BEAKER) (test code = 760) 6 hours after starting heparin infusion and as indicated per sliding scale HEMOGLOBIN AND [id number] 13:10:00 Test Item Value Reference Range Interpretation Comments HEMOGLOBIN (BEAKER) (test code = 9.3 GM/DL 11.2-15.7 L 410) HEMATOCRIT (BEAKER) (test code = 30.0 % 34.1-44.9 L 411) U/S, ABDOMINAL, [id number] 12:16:00Abdomen limited area? Add comment if clarification [...] MDReport Verified Date/Time: 01/10/2019 12:16:23 Reading Location: [facility] C013X Ortho Consult Reading Room [id number] 20:52:00 Test Item Value Reference Range Interpretation [...] for patients wiht mechanical heart valves.HEMOGLOBIN AND [id number] 16:23:00 Test Item Value Reference Range Interpretation Comments HEMOGLOBIN (BEAKER) (test code = 9.4 GM/DL 11.2-15.7 L 410) HEMATOCRIT (BEAKER) (test code = 29.9 % 34.1-44.9 L 411) PT/[id number] 07:42:00 Test Item Value Reference Range Interpretation [...] INR is2.5-3.5 for patients wiht mechanical heart valves.[id number] 03:41:00 Test Item Value Reference Range Interpretation Comments MAGNESIUM (BEAKER) (test code = 1.7 mg/dL 1.6-2.6 627) BASIC METABOLIC [id number] 03:41:00 Test Item Value Reference Range Interpretation [...] NOT APPLICABLE FOR DIALYSIS PATIEN TS. PROTHROMBIN TIME/[id number] 03:35:00 Test Item Value Reference Range Interpretation [...] for patients wiht mechanical heart valves.HEMOGLOBIN AND [id number] 03:21:00 Test Item Value Reference Range Interpretation Comments HEMOGLOBIN (BEAKER) (test code = 8.8 GM/DL 11.2-15.7 L 410) HEMATOCRIT (BEAKER) (test code = 27.9 % 34.1-44.9 L 411) PT/[id number] 23:57:00 Test Item Value Reference Range Interpretation [...] INR is2.5-3.5 for patients wiht mechanical heart valves.PT/[id number] 22:20:00 Test Item Value Reference Range Interpretation [...] is on agartrobanPatient is on agartrobanHEMOGLOBIN AND [id number] 22:08:00 Test Item Value Reference Range Interpretation Comments HEMOGLOBIN (BEAKER) (test code = 9.6 GM/DL 11.2-15.7 L 410) HEMATOCRIT (BEAKER) (test code = 30.5 % 34.1-44.9 L 411) HEMOGLOBIN AND [id number] 16:25:00 Test Item Value Reference Range Interpretation [...] WBC 0-0 (BEAKER) (test code = 413) [id number] 15:07:00 Test Item Value Reference Range Interpretation Comments PARTIAL THROMBOPLASTIN TIME 59.8 seconds 22.5-36.0 H (BEAKER) (test code = 760) PROTHROMBIN TIME/[id number] 14:32:00 Test Item Value Reference Range Interpretation [...] pg/mL 0-100 H (test code = 700) [id number] 12:34:00 Test Item Value Reference Range Interpretation Comments POTASSIUM (BEAKER) (test code = 3.9 meq/L 3.5-5.1 379) [id number] 12:34:00 Test Item Value Reference Range Interpretation Comments MAGNESIUM (BEAKER) (test code = 2.0 mg/dL 1.6-2.6 627) [id number] 11:33:00 Test Item Value Reference Range Interpretation Comments PROCALCITONIN (BEAKER) (test code 0.05 ng/mL <0.05 H = 3036) SEPSIS RISK (ng/mL)Low: 0.05-0.50Intermediate: 0.51-2.00High: >=2.01LACTIC ACID, [id number] 10:31:00 Test Item Value Reference Range Interpretation Comments LACTATE BLOOD VENOUS (2) (BEAKER) 0.7 mmol/L 0.5-2.2 (test code = 2872) HEMOGLOBIN AND [id number] 10:10:00 Test Item Value Reference Range Interpretation Comments HEMOGLOBIN (BEAKER) (test code = 8.3 GM/DL 11.2-15.7 L 410) HEMATOCRIT (BEAKER) (test code = 26.2 % 34.1-44.9 L 411) BASIC METABOLIC [id number] 08:27:00 Test Item Value Reference Range Interpretation [...] PATIEN TS. RAD, CHEST, 1 VIEW, NON [id number] 08:17:00Reason for exam:->pulmonary edemaShould this be performed [...] MDReport Verified Date/Time: 01/08/2019 08:17:31 Reading Location: [facility] Radiology Reading Room [id number] 08:12:00 Test Item Value Reference Range Interpretation Comments MAGNESIUM (BEAKER) (test code = 2.0 mg/dL 1.6-2.6 627) [id number] 07:14:00 Test Item Value Reference Range Interpretation [...] L (test code = 2590) HEMOGLOBIN AND [id number] 06:25:00 Test Item Value Reference Range Interpretation [...] = 1414) RAD, CHEST, 1 VIEW, NON [id number] 23:31:00Reason for exam:- >DyspneaShould this be performed [...] changes of the right shoulder. Signed: Travis Aguilaeport Verified Date/Time: 01/07/2019 23:31:03 Reading Location: [address] Reading Room REHENSIVE METABOLIC [id number] 22:56:00 Test Item Value Reference Range Interpretation [...] S NOT APPLICABLE FOR DIALYSIS PATIEN TS. [id number] 22:51:00 Test Item Value Reference Range Interpretation Comments MAGNESIUM (BEAKER) (test code = 1.3 mg/dL 1.6-2.6 L 627) [id number] 22:45:00 Test Item Value Reference Range Interpretation Comments FIBRINOGEN LEVEL (BEAKER) (test 509 mg/dl 225-434 H code = 658) PROTHROMBIN TIME/[id number] 22:09:00 Test Item Value Reference Range Interpretation [...] mechanical heart valves.CBC W/PLT COUNT & AUTO [id number] 22:05:00 Test Item Value Reference Range Interpretation [...] % 0-1 PERCENT (BEAKER) (test code = 4021)
== END 2021-10-23 20:05 | disposition home or self-care (01) ==
LOC: ER 17:36
DX: S60.512A Abrasion of left hand, initial encounter (principal); W22.8XXA Striking against or struck by other objects, initial encounter; Y92.009 Unspecified place in unspecified non-institutional (private) residence as the place of occurrence of the external cause; Z88.0 Allergy status to penicillin; Z88.5 Allergy status to narcotic agent; Z88.6 Allergy status to analgesic agent; Z88.8 Allergy status to other drugs, medicaments and biological substances; Z91.048 Other nonmedicinal substance allergy status; Z95.4 Presence of other heart-valve replacement
CPT/HCPCS: 99283

== ENCOUNTER 2023-04-17 17:12 | Inpatient (IN) | payer OTHER ==
--- OUTSIDE RECORDS SUMMARY | 2023-04-17 17:22 | XMS REPORT | Continuity of Care Document ---
:1960 Author Organization [facility] t Address [address] [place] [address] Care Team Providers Name Role Phone Kayce Cheek DO Primary Care Physician KENNY_Sushma_Michelle Attending Clinician Unavailable ALIREZA SEGURA Attending Clinician Unavailable MELANIE ANTHONY Attending Clinician Unavailable Traci Admitting Clinician Unavailable FABY CHRISTINA Admitting Clinician Unavailable MELANIE ANTHONY Admitting Clinician Unavailable Payers Payer Name Policy Type Policy Number Effective Date Expiration Date Kevin carpenter AETNA (MEDICARE [id number] 2023 REPLACEMENT PPO) 00:00:00 [employer]ETNA MEDICARE HMO [id number] 2018 POS 00:00:00 Problems Condition Condition Condition Status Onset Resolution Last Treating Co mments Source Name Details Category Date Date Treatment Clinician Date Claudicati Claudicati Disease Active [facility] right right [facility] lower 00 [facility] extremity extremity Symptomati Symptomati Disease Active [facility] anemia c [facility] 1 [facility] GI bleed GI bleed Disease Active [facility] Acute Acute Disease Active [facility] blood loss blood loss 7-09 st anemia anemia 00:00: Hospita 00 l Abrasion Abrasion Disease Recurre Meth michael of toe of toe nce 02-10 st 00:00: Hospita 00 l Fever Fever Disease Active [facility] 02-[facility] 00:00: Hospita 00 l 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 00:00: Hospit a 00 l Cough Cough Disease Active [facility] 10-01 st 00:00: Hospita 00 l Hypothyroi Hypothyroi Disease Active M ethodi dism dism 10-01 st 00:00: Hospita 00 l Impaired Impaired Disease Active Metho di fasting fasting 10-01 glucose glucose 00:00: Hospita 00 l Abnormal Abnormal Disease Active Metho di liver liver 10-01 enzymes enzymes 00:00: Hospita 00 l 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 00:00: Hospita 00 l Urinary Urinary Disease Active [facility] tract tract 10-01 st infection infection 00:00: Hosp sylwia 00 l Vitamin D Vitamin D Disease Active Met hodi deficiency deficiency 10-01 st 00:00: Hospita 00 l Allergies, Adverse Reactions, Alerts Allergy Allergy Status Severity Reaction(s) Onset Inactive Treating Comm ents Source Name Type Date Date Clinician HYDROMOR Allergy Active N\\T\\V [facility] (BULK[facility] Center Hydromor Drug Active Nausea And [facility] phone Allergy Vomiting 1-05 [facility] (Bulk) [facility] 00 Center Morpholi Drug Active Nausea And [facility] ne Allergy Vomiting 1-05 [facility] Analogue 00:00: Medical s Center MORPHOLI Allergy Active N\\T\\V [facility] NE 1-05 [facility] ANALOGUE 00:00: Medical S 00 Center Penicill Propensi Active [facility] ins ty to 01-08 [facility] adverse 00:00: Medical reaction 00 Center s PENICILL Allergy Active [facility] INS 01-08 00:00: 00 Prometha Propensi Active im causes Met hodi zine ty to 10-[address] adverse 00:00: Hospita reaction 00 l s to drug Adhesive Propensi Active "Plastic" Met hodi Tape-Sophia ty to 27 st icones adverse 00:00: Hospita reaction 00 l s to drug Aspirin Propensi Active Cardio Methodi ty to 10-[address] adverse 00:00: want pt Hospita reaction 00 to take l s to drug Hydromor Propensi Active Method i phone ty to 10-01 st adverse 00:00: Hospita reaction 00 l s to drug Meperidi Propensi Active Method i ne ty to 2 st adverse 00:00: Hospita reaction 00 l s to drug Methadon Propensi Active Method i e ty to 227 st adverse 00:00: Hospita reaction 00 l s to drug Morphine Propensi Active Shortness Of Methodi ty to Breath 10-01 st adverse 00:00: Hospita reaction 00 l s to drug Penicill Propensi Active Shortness Of Methodi ins ty to Breath 10-01 st adverse 00:00: Hospita reaction 00 l s to drug Prochlor Propensi Active Method i perazine ty to 10-01 st adverse 00:00: Hospita reaction 00 l s to drug Family History Family Member Diagnosis Comments Start Date Stop Date Source Maternal grandmother Cancer [facility] Social History Social Habit Start Date Stop Date Quantity Comments Source Gender identity [facility] Sexual orientation Method [facility] History of tobacco Smokes tobacco [facility] Alcohol intake 2020-08-19 2020-08-19 [facility]00 of alcohol [facility] (finding) Tobacco use and 2019-01-08 2019-01-[address] [facility] exposure 00:00:00 00:00:00 tobacco non-user [facility] Tobacco Comment 2019-01-08 2019-01-[address] [facility] 00:00:00 00:00:00 [facility] Cigarettes smoked 2019-01-08 2019-01-[address] [facility] current (pack per 00:00:00 00:00:00 Medical Center day) - Reported Cigarette 2019-01-08 2019-01-[address] [facility] pack-years 00:00:00 00:00:00 Medical Center History of Social 2016-04-19 2016-04-[address] function 00:00:00 00:00:00 Hospital Sex Assigned At [address] [facility] 00:00:00 00:00:00 Medical Center Smoking Status Start Date Stop Date Source Smokes tobacco daily 2019-01-08 00:00:00 [facility] Occasional tobacco smoker 2017-02-08 00:00:00 [facility] Medications Ordered Filled Start Stop Current Ordering Indication Dosage Frequency Signature Comments Components Source Medication Medication Date Date Medication? Clinician (SIG) Name Name predniSONE Yes 2.5mg QD Take 2.[address] (DELTASONE) 1-22 mg by [facility] 2.5 MG 18:01: mouth Medical tablet 10 daily. [place] metoprolol Yes 50mg QD Take [address] (TOPROL-XL) 1-22 by mouth Luke s 25 MG 24 hr 18:01: daily . Med ical tablet 10 Center amitriptyli Yes 50mg Q.5D Take [address] ne (ELAVIL) 1-22 by mouth 2 Ayse kes 25 MG 18:01: (two) Medical tablet 10 times Center daily . acyclovir Yes 200mg Q.5D Take [address] (ZOVIRAX) 1-22 mg by [facility] 200 MG 18:01: mouth 2 Medical capsule 10 (two) Center times daily . ALPRAZolam Yes 1mg Take [address] (XANAX) 2 1-22 by mouth 3 Luke s MG tablet 18:01: (three) Medic al 10 times Center daily as needed for Sleep . gabapentin Yes 300mg Q.[id number] Take [address] (NEURONTIN) 1-22 [id number] mg by L ukes 300 MG 18:01: 3D mouth 3 Medical capsule 10 (three) Center times daily. cyanocobala Yes 1000ug Inject [facility] min 1-22 1,000 mcg Ministerio (VITAMIN 18:01: intramuscu Med ical B-12) 1,000 10 larly Center mcg/mL every 30 injection (thirty) days. levothyroxi Yes 125ug Take [address] ne 1-22 mcg by Ministerio (SYNTHROID, 18:01: mouth Medic al LEVOTHROID) 10 Every Center 125 MCG morning on tablet an empty stomach. mupirocin Yes Apply [facility] (BACTROBAN) 1-19 daily as Luke s 2 % 00:00: instructed Medical ointment 00 . Center cyclobenzap Yes 10mg Q.[id number] Take 10 mg Methodi rine 7-10 [id number] [address] mouth [address] (FLEXERIL) 17:14: 3D (three) Hosp sylwia 10 MG 27 times a l tablet day as needed for muscle spasms. MULTIVITAMI Yes Take by Met anny N ORAL 7-[address] 17:14: Hospita 27 l ascorbic Yes 100mg QD Take 100 Meth michael acid, 7-[address] vitamin C, 17:14: mouth Hospit a (vitamin C) 27 daily. l 100 MG tablet amitriptyli Yes 75mg QD Take 75 mg Methodi ne (ELAVIL) 7-[address] 100 MG 17:14: nightly. Hospita tablet 27 l gabapentin Yes 200mg QD 200 mg Meth michael (NEURONTIN) 6-[address] 400 mg 00:00: Hospita capsule 00 l topiramate Yes Methodi (TOPAMAX) 6-14 st 50 MG 00:00: Hospita tablet 00 l predniSONE Yes 2.5mg QD Take 2.5 Me thodi (DELTASONE) 6-[address] 2.5 mg 00:00: mouth Hospita tablet 00 daily. l mupirocin Yes Methodi (BACTROBAN) 5-23 st 2 % 00:00: Hospita ointment 00 l metoprolol Yes Methodi succinate 5-03 st XL 00:00: Hospita (TOPROL-XL) 00 l 50 mg 24 hr tablet omeprazole Yes TAKE ONE Met hodi (PriLOSEC) 4-[address] 20 MG 00:00: MOUTH Hospita capsule 00 TWICE A l DAY levothyroxi Yes TAKE ONE Me thodi ne 3-[address] (SYNTHROID, 00:00: MOUTH Hospi ta LEVOXYL) 00 DAILY l 125 mcg tablet RESTASIS Yes 1[drp] Administer M ethodi 0.05 % [address] ophthalmic 00:00: both eyes. H ospita emulsion 00 l PROAIR HFA Yes 2{puff} Q6H 2 puffs M ethodi 90 6-[address] mcg/actuati 00:00: (six) Hospi ta on inhaler 00 hours as l needed. Immunizations Ordered Immunization Filled Immunization Date Status Commen ts Source Name Name Pneumococcal 2016-04-19 Completed [facility] Polysaccharide 00:00:00 Hospital FLUZONE QUAD 2016-04-19 Completed [facility] 00:00:00 Hospital Influenza, 2015-04-05 Completed [facility] Quadrivalent 00:00:00 Hospital Pneumococcal 2015-04-05 Completed [facility] Polysaccharide 00:00:00 Hospital Vital Signs Vital Name Observation Time Observation [...] Planned Date Details Comments Source Future Scheduled 2029-01-09 Screening for malignant [facility] Test 00:00:00 neoplasm of colon Medical Ce nter (procedure) [code = 062273361] Future Scheduled 2029-01-09 Screening for malignant [facility] Test 00:00:00 neoplasm of colon Medical Ce nter (procedure) [code = 090625365] Future Scheduled 2023-04-05 Screening for malignant [facility] Test 17:17:24 neoplasm of colon Hospital (procedure) [code = 122020602] Future Scheduled 2023-04-05 Screening for malignant [facility] Test 17:17:24 neoplasm of colon Hospital (procedure) [code = 454520490] Future Scheduled 2023-04-05 Screening for malignant [facility] Test 17:17:24 neoplasm of colon Hospital (procedure) [code = 780329743] Future Scheduled 2023-04-05 COVID-19 VACCINE (#1) [facility] Test 17:17:24 [code = COVID-19 VACCINE Hos pital (#1)] Future Scheduled 2023-04-05 Screening for malignant [facility] Test 17:17:24 neoplasm of colon Hospital (procedure) [code = 379846331] Future Scheduled 2023-04-05 Screening for malignant [facility] Test 17:17:24 neoplasm of colon Hospital (procedure) [code = 806595200] Future Scheduled 2023-04-05 SHINGLES VACCINES (1 of [facility] Test 17:17:24 2) [code = SHINGLES Hospital VACCINES (1 of 2)] Future Scheduled 2023-04-05 BREAST CANCER SCREENING [facility] Test 17:17:24 [code = BREAST CANCER Hospit al SCREENING] Future Scheduled 2023-04-05 Screening for malignant [facility] Test 17:17:24 neoplasm of cervix Hospital (procedure) [code = 097520866] Future Scheduled 2023-04-05 INFLUENZA VACCINE (#1) M ethodist Test 17:17:24 [code = INFLUENZA VACCINE Ho spital (#1)] Future Scheduled 2023-04-05 Influenza Vaccine (#1) [facility] [code = Influenza Vaccine Me dical Center (#1)] Future Scheduled 2022-08-[address] [facility] Test 00:00:00 (12+) [code = DEPRESSION Med ical Center SCREENING (12+)] Future Scheduled 2021-08-10 Screening for malignant [facility] Test 00:00:00 neoplasm of colon Medical Ce nter (procedure) [code = 450495430] Future Scheduled 2021-08-[address] [facility] Test 00:00:00 [facility] [place] (12+) [code = Tobacco Cessation Counseling and Screening (12+)] Future Scheduled 2019-08-06 MEDICARE ANNUAL WELLNESS [facility] Test 00:00:00 (YEAR 2 or FIRST YEAR if Med ical Center no IPPE) [code = MEDICARE ANNUAL WELLNESS (YEAR 2 or FIRST YEAR if no IPPE)] Future Scheduled 2018-10-21 Lipid panel (procedure) [facility] Test 00:00:00 [code = 74047197] Medical Ce nter Future Scheduled 2017-04-19 Pneumococcal Vaccine: [facility] 00:00:00 0-64 Years (2 - PCV) Medical Center [code = Pneumococcal Vaccine: 0-64 Years (2 - PCV)] Future Scheduled 2009 SHINGLES VACCINES ([address] [facility] Test 00:00:00 2) [code = SHINGLES Medical Center VACCINES (1 of 2)] Future Scheduled 1980 Screening for malignant [facility] Test 00:00:00 neoplasm of cervix Medical C enter (procedure) [code = 072374256] Future Scheduled 1978 DTAP/TDAP/TD VACCINES ([address] [facility] Test 00:00:00 - Tdap) [code = Medical Cent er DTAP/TDAP/TD VACCINES (1 - Tdap)] Future Scheduled 1977 HEPATITIS C SCREENING [facility] 00:00:00 [code = HEPATITIS C Medical Center SCREENING] Future Scheduled [address] [facility] Test 00:00:00 virus screening Medical Cent er (procedure) [code = 356188744] Future Scheduled 1959 COVID-19 VACCINE (#1) [facility] 00:00:00 [code = COVID-19 VACCINE [facility] ica Center (#1)] Future Scheduled 1959 Screening for malignant [facility] Test 00:00:00 neoplasm of breast Medical C enter (procedure) [code = 120940575] Future Scheduled 1959 CT Colonography (combo) [facility] Test 00:00:00 [code = CT Colonography [facility] (combo)] Future Scheduled 1959 Screening for malignant [facility] Test 00:00:00 neoplasm of colon Medical Ce nter (procedure) [code = 872714893] Future Scheduled 1960 Sigmoidoscopy [code = [facility] Test 00:[facility]:00 Sigmoidoscopy] Medical Cente r Encounters Start End Encounter Admission Attending Care Care Encounter Source Date/Time Date/Time Type Type Clinicians Facility Department ID 2023-03-25 2023-03-25 Outpatient GC_SWHAOMC_ PRIV PRIV [id number] [facility] 00:00:00 00:00:00 Robert_Michelle [id number] Medica l 2020-08-08 2020-08-08 Emergency ER [facility] Emergency [id number] [facility] 22:10:00 22:10:00 Results Test Description Test Time Test Comments Results Result Comments Source VANCOMYCIN LEVEL, TROUGH 2020-08-26 11:37:00 Test Item Value Reference Range Interpretation Comme nts VANCOMYCIN TROUGH (BEAKER) (test code = 522) 15.8 ug/mL 10.0-20.0 Proofer Apprentice ID - CAROLYNN CPROTHROMBIN TIME/[id number] 04:41:00 Test Item Value Reference Range Interpretation [...] is 2.5-3.5 for patients wiht mechanical heart valves.While on warfarin.[id number] 04:00:00 Test Item Value Reference Range Interpretation Comments MAGNESIUM (BEAKER) 2.0 mg/dL 1.6-2.6 Specimen slightly (test code = 627) hemolyzed Proofer Apprentice ID - RISHI WBASIC METABOLIC [id number] 04:00:00 Test Item Value Reference Range Interpretation [...] S NOT APPLICABLE FOR DIALYSIS PATIEN TS. Proofer Apprentice ID - RISHI WCBC (HEMOGRAM ONLY)2020-08-26 03:21:00 Test Item Value [...] (BEAKER) (test code = 413) BASIC METABOLIC [id number] 08:10:00 Test Item Value Reference Range Interpretation [...] S NOT APPLICABLE FOR DIALYSIS PATIEN TS. Proofer Apprentice ID - MIKE [id number] 08:10:00 Test Item Value Reference Range Interpretation Comments MAGNESIUM (BEAKER) (test code = 1.9 mg/dL 1.6-2.6 627) Proofer Apprentice ID - MIKE MPROTHROMBIN TIME/[id number] 06:19:00 Test Item Value Reference Range Interpretation [...] is 2.5-3.5 for patients wiht mechanical heart valves.While on [...] (BEAKER) (test code = 413) VANCOMYCIN LEVEL, [id number] 10:41:00 Test Item Value Reference Range Interpretation Comments VANCOMYCIN TROUGH (BEAKER) (test 12.3 ug/mL 10.0-20.0 code = 522) Proofer Apprentice ID - LIZZIE FBASIC METABOLIC [id number] 06:40:00 Test Item Value Reference Range Interpretation [...] S NOT APPLICABLE FOR DIALYSIS PATIEN TS. Proofer Apprentice ID - MIKE [id number] 06:40:00 Test Item Value Reference Range Interpretation Comments MAGNESIUM (BEAKER) (test code = 1.8 mg/dL 1.6-2.6 627) Proofer Apprentice ID - MIKE MPROTHROMBIN TIME/[id number] 05:59:00 Test Item Value Reference Range Interpretation [...] is 2.5-3.5 for patients wiht mechanical heart valves.While on [...] 0-0 (BEAKER) (test code = 413) BLOOD [id number] 13:00:00 Test Item Value Reference Range Interpretation Comments CULTURE (BEAKER) (test No growth in 5 days code = 1095) BLOOD [id number] 13:00:00 Test Item Value Reference Range Interpretation Comments CULTURE (BEAKER) (test No growth in 5 days code = 1095) BASIC METABOLIC [id number] 08:46:00 Test Item Value Reference Range Interpretation [...] S NOT APPLICABLE FOR DIALYSIS PATIEN TS. Proofer Apprentice ID - MIKE [id number] 08:46:00 Test Item Value Reference Range Interpretation Comments MAGNESIUM (BEAKER) (test code = 1.8 mg/dL 1.6-2.6 627) Proofer Apprentice ID - MIKE MBLOOD [id number] 08:32:00 Test Item Value Reference Range Interpretation [...] = 1123) positive cocci in clusters SARS-COV2/RT-PCR ([facility])2020-08-23 06:37:00 Test Item Value Reference Range Interpretation Comments SARS-COV2/RT-PCR (test Negative Not Detected, Negative, code = 1137684) See external report for linked test SARS-COV-2 PERFORMING LAB [facility] (test code = 2480255) Negative result for this test determines that [...] justifying the authorization of the emergency use ofin vitro diagnostic tests for detection and/or diagnosis of COVID-19 is terminated under Section 564(b)(2) of the Act or the EUA is revoked under Section 564(g) of the Act.Fact Sheet for Healthcare Prov iders:https://www.[employer]/sites/default/files/product/documents/Fact_Sheet_HC _Gwnkuxybe_Euxj_NMAQ-XjX-4.pdfFact Sheet for Healthcare Patients:https://www.[employer]/sites/default/files/product/docume nts/Zufi_Klyly_Wuhqygcg_Xhjl_HLCW-FxI-6.pdfPerforming Laboratory:[facility], [place] [address]EAKTWRUMDCB TIME/INR 2020-08-23 06:23:00 Test Item Value Reference [...] is 2.5-3.5 for patients wiht mechanical heart valves.While on [...] = 413) RAD, CHEST, 1 VIEW, NON [id number] 14:12:00Reason for exam:->chest painShould this be performed at the bedside?->Yes [facility] 1960 Sex: FFINAL REPORT RAD, CHEST, 1 VIEW, NON DEPT INDICATION: chest pain COMPARISON: 08/21/2020 FINDINGS: Portable frontal view of the chest. IMPRESSION: Support Lines: PICC tip overlies the atriocaval junction Lungs and pleura: Mild bibasilar atelectasis. No focal pneumonia. No pneumothorax.Heart and mediastinum: Stable contours. Stable surgical changes.Additional findings: None. Signed: Dodie Moore Verified Date/Time: 08/22/2020 14:12:21 Reading Location: [facility] Radiology Reading Room BASI METABOLIC [id number] 07:19:00 Test Item Value Reference Range Interpretation [...] S NOT APPLICABLE FOR DIALYSIS PATIEN TS. Proofer Apprentice ID - PIAYA [id number] 07:19:00 Test Item Value Reference Range Interpretation Comments MAGNESIUM (BEAKER) (test code = 1.7 mg/dL 1.6-2.6 627) Proofer Apprentice ID - PIAYA LPROTHROMBIN TIME/[id number] 05:47:00 Test Item Value Reference Range Interpretation [...] is 2.5-3.5 for patients wiht mechanical heart valves.While on [...] = 413) RAD, CHEST, 1 VIEW, NON [id number] 10:44:00Reason for exam:->PICC LINE PLACEMENTShould this be performed at the bedside?->Yes [facility] 1960 Sex: FFINAL REPORT EXAM: Chest [...] MDReport Verified Date/Time: 08/21/2020 10:44:24 Reading Location: [facility] C013T Transitional Reading Room BASIC METABOLIC [id number] 06:32:00 Test Item Value Reference Range Interpretation [...] S NOT APPLICABLE FOR DIALYSIS PATIEN TS. Proofer Apprentice ID - PIAYA [id number] 06:32:00 Test Item Value Reference Range Interpretation Comments MAGNESIUM (BEAKER) (test code = 1.7 mg/dL 1.6-2.6 627) Proofer Apprentice ID - PIAYA LPROTHROMBIN TIME/[id number] 05:46:00 Test Item Value Reference Range Interpretation [...] is 2.5-3.5 for patients wiht mechanical heart valves.While on [...] 0-0 (BEAKER) (test code = 413) BLOOD [id number] 11:12:00 Test Item Value Reference Range Interpretation [...] gram 1123) positive cocci in clusters BLOOD [id number] 11:10:00 Test Item Value Reference Range Interpretation [...] bottles: gram 1123) positive cocci in clusters [id number] 06:49:00 Test Item Value Reference Range Interpretation Comments PARTIAL THROMBOPLASTIN TIME 66.1 seconds 22.5-36.0 H (BEAKER) (test code = 760) [id number] 05:54:00 Test Item Value Reference Range Interpretation Comments CORTISOL, TOTAL (BEAKER) (test code 1.3 ug/dL 3.7-19.4 L = 2755) Proofer Apprentice ID - EDASIVANCOMYCIN LEVEL, [id number] 05:29:00 Test Item Value Reference Range Interpretation Comments VANCOMYCIN RANDOM (BEAKER) (test 11.5 ug/mL code = 523) Reference Range: No NormalsOperator ID - MIKE [id number] 04:51:00 Test Item Value Reference Range Interpretation Comments PARTIAL THROMBOPLASTIN TIME 171.9 seconds 22.5-36.0 HH (BEAKER) (test code = 760) While on warfarin.BASIC METABOLIC [id number] 04:25:00 Test Item Value Reference Range Interpretation [...] S NOT APPLICABLE FOR DIALYSIS PATIEN TS. Proofer Apprentice ID - EDASIPROTHROMBIN TIME/[id number] 04:17:00 Test Item Value Reference Range Interpretation [...] is 2.5-3.5 for patients wiht mechanical heart valves.While on warfarin.[id number] 04:11:00 Test Item Value Reference Range Interpretation Comments MAGNESIUM (BEAKER) (test code = 1.7 mg/dL 1.6-2.6 627) Proofer Apprentice ID - EDASICBC (HEMOGRAM ONLY)2020-08-20 03:51:00 Test [...] WBC 0-0 (BEAKER) (test code = 413) [id number] 18:55:00 Test Item Value Reference Range Interpretation Comments PARTIAL THROMBOPLASTIN TIME 60.3 seconds 22.5-36.0 H (BEAKER) (test code = 760) [id number] 11:08:00 Test Item Value Reference Range Interpretation Comments MAGNESIUM (BEAKER) 1.7 mg/dL 1.6-2.6 Specimen slightly (test code = 627) hemolyzed Proofer Apprentice ID - EDASIBASIC METABOLIC [id number] 11:08:00 Test Item Value Reference Range Interpretation [...] S NOT APPLICABLE FOR DIALYSIS PATIEN TS. Proofer Apprentice ID - EDASIVANCOMYCIN LEVEL, [id number] 11:05:00 Test Item Value Reference Range Interpretation Comments VANCOMYCIN TROUGH (BEAKER) (test 27.4 ug/mL 10.0-20.0 H code = 522) Proofer Apprentice ID - [id number] 11:05:00 Test Item Value Reference Range Interpretation Comments PARTIAL THROMBOPLASTIN TIME 62.3 seconds 22.5-36.0 H (BEAKER) (test code = 760) While on warfarin.PROTHROMBIN TIME/[id number] 11:04:00 Test Item Value Reference Range Interpretation [...] is 2.5-3.5 for patients wiht mechanical heart valves.While on [...] WBC 0-0 (BEAKER) (test code = 413) [id number] 22:03:00 Test Item Value Reference Range Interpretation Comments PARTIAL THROMBOPLASTIN TIME 73.4 seconds 22.5-36.0 H (BEAKER) (test code = 760) BASIC METABOLIC [id number] 12:50:00 Test Item Value Reference Range Interpretation [...] S NOT APPLICABLE FOR DIALYSIS PATIEN TS. Proofer Apprentice ID - [id number] 12:50:00 Test Item Value Reference Range Interpretation Comments MAGNESIUM (BEAKER) (test code = 1.7 mg/dL 1.6-2.6 627) Proofer Apprentice ID - AAHAMIDVANCOMYCIN LEVEL, [id number] 12:49:00 Test Item Value Reference Range Interpretation Comments VANCOMYCIN TROUGH (BEAKER) (test 15.6 ug/mL 10.0-20.0 code = 522) Proofer Apprentice ID - [id number] 12:33:00 Test Item Value Reference Range Interpretation Comments PARTIAL THROMBOPLASTIN TIME 76.0 seconds 22.5-36.0 H (BEAKER) (test code = 760) PROTHROMBIN TIME/[id number] 07:04:00 Test Item Value Reference Range Interpretation [...] is 2.5-3.5 for patients wiht mechanical heart valves.While on [...] WBC 0-0 (BEAKER) (test code = 413) [id number] 01:47:00 Test Item Value Reference Range Interpretation Comments PARTIAL THROMBOPLASTIN TIME 37.7 seconds 22.5-36.0 H (BEAKER) (test code = 760) [id number] 22:54:00 Test Item Value Reference Range Interpretation [...] code = 413) URINALYSIS W/ REFLEX URINE [id number] 16:12:00 Test Item Value Reference Range Interpretation [...] = 1584) SOURCE(BEAKER) (test code = 2795) Proofer Apprentice ID - [auto]Proofer Apprentice ID - [id number] 14:59:00 Test Item Value Reference Range Interpretation Comments PARTIAL THROMBOPLASTIN TIME 85.2 seconds 22.5-36.0 H (BEAKER) (test code = 760) RAD, CHEST, 1 VIEW, NON [id number] 07:41:00Reason for exam:->feverShould this be performed at the bedside?->Yes [facility] 1960 Sex: FFINAL REPORT CLINICAL HISTORY: fever TECHNIQUE: 1 view of the chest. COMPARISON: 08/08/2020 IMPRESSION: There are no focal infiltrates or effusions. The cardiomediastinal silhouette is unchanged poststernotomy. Signed: Marie Lovellort Verified Date/Time: 08/17/2020 07:41:21 Reading Location: [facility] Radiology Reading Room CBC (HEMOGRAM ONLY)2020-08-17 [...] 0-0 (BEAKER) (test code = 413) PROTHROMBIN TIME/[id number] 05:40:00 Test Item Value Reference Range Interpretation [...] is 2.5-3.5 for patients wiht mechanical heart valves.While on warfarin.COMPREHENSIVE METABOLIC [id number] 00:20:00 Test Item Value Reference Range Interpretation [...] S NOT APPLICABLE FOR DIALYSIS PATIEN TS. Proofer Apprentice ID - DHIRAJ [id number] 00:02:00 Test Item Value Reference Range Interpretation Comments PARTIAL THROMBOPLASTIN TIME 93.3 seconds 22.5-36.0 H (BEAKER) (test code = 760) LACTIC ACID, [id number] 23:59:00 Test Item Value Reference Range Interpretation Comments LACTATE BLOOD VENOUS (2) (BEAKER) 1.55 mmol/L 0.50-2.20 (test code = 2872) Proofer Apprentice ROSARIO HEARN LCBC W/PLT COUNT & AUTO [id number] 23:53:00 Test Item Value Reference Range Interpretation [...] 0-1 PERCENT (BEAKER) (test code = 2801) [id number] 17:15:00 Test Item Value Reference Range Interpretation Comments ACTIVATED CLOTTING TIME 241 sec : 74 -137 seconds, (BEAKER) (test code = Elai ne: TESTED AT 441) [facility] [address] [place], [address]: Proofer Apprentice/Techni sandee ID = [id number] for HE TOBY ARNETT, DOMENIC [id number] 11:16:00 Test Item Value Reference Range Interpretation Comments PARTIAL THROMBOPLASTIN TIME 80.2 seconds 22.5-36.0 H (BEAKER) (test code = 760) While on warfarin.PROTHROMBIN TIME/[id number] 11:15:00 Test Item Value Reference Range Interpretation [...] is 2.5-3.5 for patients wiht mechanical heart valves.While on warfarin.MR, SPINE, LUMBAR, WITHOUT [id number] 07:05:00Unlisted Reason for Exam - Click Yes and Enter Reason Below->No [facility] : 1960 Sex: FFINAL REPORT MR, SPINE, LUMBAR, WITHOUT CONTRAST INDICATION: Back pain or radiculopathy, < 6 wks, uncomplicated COMPARISON: None TECHNIQUE: Multiplanar, multisequence MR images of the lumbar spine without contrast. FINDINGS: Numbering: Last fully formed disc space is designated L5-S1. Spinal cord: The conus medullaris is normal is size, signal intensity, and position, terminating at the T12-L1 level. Osseous structures: The lumbar spine demonstrates normal alignment without scoliosis orlisthesis. Vertebral bodies are normal in height and signal intensity. No aggressive osseous lesionsare identified. Discs: Disc desiccation and loss of height are greatest at the L4-5 level. Evaluation of the individual levels demonstrates: L1/L2: No disc herniation, spinal canal stenosis, or neural foraminal narrowing. L2/L3: No disc herniation, spinal canal stenosis, or neural foraminal narrowing.L3/L4: No disc herniation, spinal canal stenosis, or [...] MDReport Verified Date/Time: 08/16/2020 07:05:14 Reading Location: [facility] C013V Neuro Reading Room [id number] 03:27:00 Test Item Value Reference Range Interpretation [...] 0-0 (BEAKER) (test code = 413) SARS-COV2/RT-PCR ([facility])2020-08-15 20:12:00 Test Item Value Reference Range Interpretation Comments SARS-COV2/RT-PCR (test Negative Not Detected, Negative, code = 0564921) See external report for linked test SARS-COV-2 PERFORMING LAB [facility] (test code = 8590225) Negative result for this test determines that [...] justifying the authorization of the emergency use ofin vitro diagnostic tests for detection and/or diagnosis of COVID-19 is terminated under Section 564(b)(2) of the Act or the EUA is revoked under Section 564(g) of the Act.Fact Sheet for Healthcare Prov iders:https://www.[employer]/sites/default/files/product/documents/Fact_Sheet_HC _Qjtmyyrzj_Fadx_EEOQ-TvA-2.pdfFact Sheet for Healthcare Patients:https://www.[employer]/sites/default/files/product/docume nts/Cdbp_Bxqev_Ksxhcxlx_Ksyh_IWXQ-SwU-8.pdfPerforming Laboratory:[facility], [place] [id number] 15:32:00 Test Item Value Reference Range Interpretation [...] WBC 0-0 (BEAKER) (test code = 413) [id number] 06:27:00 Test Item Value Reference Range Interpretation Comments PARTIAL THROMBOPLASTIN TIME 95.5 seconds 22.5-36.0 H (BEAKER) (test code = 760) While on warfarin.PROTHROMBIN TIME/[id number] 06:25:00 Test Item Value Reference Range Interpretation [...] is 2.5-3.5 for patients wiht mechanical heart valves.While on [...] WBC 0-0 (BEAKER) (test code = 413) [id number] 20:44:00 Test Item Value Reference Range Interpretation [...] WBC 0-0 (BEAKER) (test code = 413) [id number] 19:10:00 Test Item Value Reference Range Interpretation Comments PARTIAL THROMBOPLASTIN TIME 135.1 seconds 22.5-36.0 H (BEAKER) (test code = 760) [id number] 11:18:00 Test Item Value Reference Range Interpretation Comments PARTIAL THROMBOPLASTIN TIME 101.6 seconds 22.5-36.0 H (BEAKER) (test code = 760) [id number] 09:37:00 Test Item Value Reference Range Interpretation Comments PARTIAL THROMBOPLASTIN TIME > seconds 22.5-36.0 HH (BEAKER) (test code = 760) CT, SPINE, LUMBAR, [id number] 08:35:00Unlisted Reason for Exam - Click Yes and Enter Reason Below->YesUnlisted Reason for Exam->LLE pain evalaute for radiculopathy [facility] : 1960 Sex: FFINAL REPORT CT, SPINE, [...] height loss is present, most conspicuous at L4-B7Ctlsjhtflwi images of the spinalcanal demonstrate no acute findings.No acute findings in the paraspinal soft tissues. Evaluation of the individual levels demonstrates:L1/L2: Mild disc bulge, asymmetric to the left. No significant canal or foraminal stenosis.L2/L3: Mild disc bulge. No significant canal or foraminal stenosis.L3/L4: Mild disc bulge, asymmetric to the left with left foraminal component. Mild bilateral facet arthropathy. Moderate left subarticular and foraminal stenosis with impingement of the left L4 and L3 nerve roots respectively. No significant spinal canal narrowing.L4/L5: Broad-based disc bulge with superimposedleft paracentral disc osteophyte. Bilateral facet arthropathy and hypertrophy. Moderate bilateral subarticular recess stenosis with suspected impingement of the L5 nerve roots. Mild left foraminal stenosis. No significant spinal canal narrowing.L5/S1: Broad-based disc bulge with superimposed central disc extrusion and cranial migration of disc material. Moderate left subarticular recess stenosis withimpingement of the left S1 nerve root. Moderate left foraminal stenosis with impingement of the exiting left L5 nerve root. Mild right foraminal stenosis. No significant spinal canal narrowing. IMPRESSION: Multilevel degenerative changes of the lumbar spine, most prominent at L3-L4, L4-L5 and L5-S1 described above. Signed: Dodie Moore MDReport Verified Date/Time: 08/14/2020 08:35:08 Reading Location: [address] Neuro Reading Room PROTHROMBIN TIME/[id number] 06:56:00 Test Item Value Reference Range Interpretation [...] is 2.5-3.5 for patients wiht mechanical heart valves.While on [...] WBC 0-0 (BEAKER) (test code = 413) [id number] 23:23:00 Test Item Value Reference Range Interpretation Comments PARTIAL THROMBOPLASTIN TIME 48.5 seconds 22.5-36.0 H (BEAKER) (test code = 760) BASIC METABOLIC [id number] 23:04:00 Test Item Value Reference Range Interpretation [...] S NOT APPLICABLE FOR DIALYSIS PATIEN TS. Proofer Apprentice ID - DBPOCT-GLUCOSE [id number] 18:16:00 Test Item Value Reference Range Interpretation Comments POC-GLUCOSE METER 90 mg/dL 70-110 : TESTED A T [facility] 67[address] ([facility]) (test code = [facility], 1538) [address]: Proofer Apprentice/Techni sandee ID = [id number] for GERI BONNERIA POCT-GLUCOSE [id number] 12:53:00 Test Item Value Reference Range Interpretation Comments POC-GLUCOSE METER 129 mg/dL 70-110 H : TESTED A T [facility] 67[address] ([facility]) (test code = [facility], 1538) [address]: Proofer Apprentice/Techni sandee ID = [id number] for GERI SPENCERIA [id number] 12:31:00 Test Item Value Reference Range Interpretation Comments PARTIAL THROMBOPLASTIN TIME 59.7 seconds 22.5-36.0 H (BEAKER) (test code = 760) POCT-GLUCOSE [id number] 08:55:00 Test Item Value Reference Range Interpretation Comments POC-GLUCOSE METER 125 mg/dL 70-110 H : TESTED A T [facility] [address] ([facility] (test code = [facility], 1538) [address]: Proofer Apprentice/Techni sandee ID = [id number] for GERI SPENCERIA [id number] 06:51:00 Test Item Value Reference Range Interpretation Comments PARTIAL THROMBOPLASTIN TIME 81.5 seconds 22.5-36.0 H (BEAKER) (test code = 760) While on warfarin.PROTHROMBIN TIME/[id number] 06:49:00 Test Item Value Reference Range Interpretation [...] is 2.5-3.5 for patients wiht mechanical heart valves.While on [...] 0-0 (BEAKER) (test code = 413) POCT-GLUCOSE [id number] 21:47:00 Test Item Value Reference Range Interpretation Comments POC-GLUCOSE METER 106 mg/dL 70-110 : TESTED A T [facility] [address] (BEAKER) (test code = [place], [address]) [address]: Proofer Apprentice/Techni sandee ID = [id number] for Shayy Schumacher [id number] 21:23:00 Test Item Value Reference Range Interpretation Comments PARTIAL THROMBOPLASTIN TIME 39.9 seconds 22.5-36.0 H (BEAKER) (test code = 760) [id number] 09:33:00 Test Item Value Reference Range Interpretation Comments PARTIAL THROMBOPLASTIN TIME 68.3 seconds 22.5-36.0 H (BEAKER) (test code = 760) PROTHROMBIN TIME/[id number] 06:46:00 Test Item Value Reference Range Interpretation [...] is 2.5-3.5 for patients wiht mechanical heart valves.While on [...] WBC 0-0 (BEAKER) (test code = 413) [id number] 00:29:00 Test Item Value Reference Range Interpretation [...] WBC 0-0 (BEAKER) (test code = 413) [id number] 16:03:00 Test Item Value Reference Range Interpretation [...] 0-0 (BEAKER) (test code = 413) PLATELET [id number] 15:55:00 Test Item Value Reference Range Interpretation Comments PLATELET COUNT (BEAKER) (test 518 K/CU MM 150-450 H code = 756) HEMOGLOBIN AND [id number] 09:12:00 Test Item Value Reference Range Interpretation Comments HEMOGLOBIN (BEAKER) (test code = 9.6 GM/DL 11.2-15.7 L 410) HEMATOCRIT (BEAKER) (test code = 31.3 % 34.1-44.9 L 411) Proofer Apprentice ID - 6000POCT-GLUCOSE [id number] 06:52:00 Test Item Value Reference Range Interpretation Comments POC-GLUCOSE METER 94 mg/dL 70-110 : [facility] (test code = [facility], 1538) [address]: Proofer Apprentice/Techni sandee ID = [id number] for JOHN MCKEON PROTHROMBIN TIME/[id number] 04:49:00 Test Item Value Reference Range Interpretation [...] is 2.5-3.5 for patients wiht mechanical heart valves.While on warfarin.OCCULT BLOOD, STOOL 2020-08-10 20:26:00 Test Item Value Reference Range Interpretation Comments FECAL OCCULT BLOOD (AKER) (test Positive Negative A code = 618) POCT-GLUCOSE [id number] 18:07:00 Test Item Value Reference Range Interpretation Comments POC-GLUCOSE METER 98 mg/dL 70-110 : TESTED A T [facility] 67[address] (BEAKER) (test code = [facility], 153) [address]: Proofer Apprentice/Techni sandee ID = [id number] for SAVANNAHG AN, IRIS POCT-GLUCOSE [id number] 12:56:00 Test Item Value Reference Range Interpretation Comments POC-GLUCOSE METER 112 mg/dL 70-110 H : TESTED A T [facility] 67[address] (BEAKER) (test code = [facility], 1538) [address]: Proofer Apprentice/Techni sandee ID = [id number] for MO RGAN, IRIS POCT-GLUCOSE [id number] 09:51:00 Test Item Value Reference Range Interpretation Comments POC-GLUCOSE METER 97 mg/dL 70-110 : TESTED A T [facility] [address] (BEAKER) (test code = [facility], 1538) [address]: Proofer Apprentice/Techni sandee ID = [id number] for MORG AN, IRIS BASIC METABOLIC [id number] 08:57:00 Test Item Value Reference Range Interpretation [...] S NOT APPLICABLE FOR DIALYSIS PATIEN TS. Proofer Apprentice ID - ADMINPROTHROMBIN TIME/[id number] 08:55:00 Test Item Value Reference Range Interpretation [...] is 2.5-3.5 for patients wiht mechanical heart valves.CBC W/PLT COUNT & AUTO [id number] 08:45:00 Test Item Value Reference Range Interpretation [...] PERCENT (BEAKER) (test code = 2801) POCT-GLUCOSE [id number] 07:00:00 Test Item Value Reference Range Interpretation Comments POC-GLUCOSE METER 82 mg/dL 70-110 : TESTED A T [facility] [address] (BEAKER) (test code = [place], 1538) [address]: Proofer Apprentice/Techni sandee ID = [id number] for FABY MOORE TROPONIN [id number] 13:30:00 Test Item Value Reference Range Interpretation [...] failure, acidosis, acute neurological disease, and persistent tachyarrhythmia.Proofer Apprentice ID - LIZZIE FPOCT-GLUCOSE [id number] 12:43:00 Test Item Value Reference Range Interpretation Comments POC-GLUCOSE METER 100 mg/dL 70-110 : TESTED A T [facility] [address] (BEAKER) (test code = [place], 1538) [address]: Proofer Apprentice/Techni sandee ID = [id number] for Benito Contreras [id number] 07:10:00 Test Item Value Reference Range Interpretation Comments FERRITIN (BEAKER) (test code = 222.98 ng/mL 5.00-275.00 361) Proofer Apprentice ID - RISHI [id number] 05:42:00 Test Item Value Reference Range Interpretation Comments HAPTOGLOBIN (BEAKER) (test code = 91 mg/dL 14-258 366) Proofer Apprentice ID - RISHI WSARS-COV2/INFLUENZA/RSV IL-[id number] 05:13:00 Test Item Value Reference Range Interpretation Comments SARS-COV2/RT-PCR Negative Negative (test code = 1170451) INFLUENZA A RT-PCR Negative Negative (test code = 9673049) INFLUENZA B RT-PCR Negative Negative (test code = 0253773) RSV RT-PCR (test Negative Negative Performance of the Xpert code = 6579874) Xpress SARS- CoV-2/Flu/RSV test has only b een established in nasopharyngeal swab specimens. Use of the Xpert Xpress SARS-CoV-2/Flu/ RSV test with other spec imen types has not been as sessed and performance characteristics are unknown. As wit h any molecular test, mutations within the targ eted genetic regions identified by t he Xpert Xpress SARS-CoV -2/Flu/RSV test could affe [...] to e clinician evalu ating the patient. Invali d test results may occ ur from improper specim en collection; tarn lure to follow the moncho mmended sample collecti on, handling, and s torage procedures; neri hnical error. False ne gative results may occ ur if virus is presen t at levels below e analytical limi t of detection (LOD: 131 copies/mL). Vir al nucleic acid may persis t in vivo, independent of virus viability. Dete ction of analyte target( s) does not imply that the corresponding v irus(es) are infectious or are the causative agent s for clinical sympto ms. Recent patient exposur e to FluMist or othe r live attenuated infl uenza vaccines may ca use inaccurate posi tive results.This te st has been authorized by [...] Drug and Cosmetic Ac t, 21 U.S.C. 360bbb-3 (b)(1), unless the auth orization is terminated o r revoked sooner.Fact She et for Healthcare Prov iders: https://www.cep heid.com/D ocuments/Xpert% 20Xpress%2 6OGOZ-EaR-1-Flu -RSV/302-4 508%20Rev.%20B% 20HCP%20Fa ct%20Sheet.pdfF act Sheet for Healthcare Patients: https://www.Tizaro heid.com/D ocuments/Xpert% 20Xpress%2 2QGZX-HvY-9-Flu -RSV/302-4 507%20Rev.%20B% 20Patient% 20Fact%20Sheet. pdf TROPONIN [id number] 04:58:00 Test Item Value Reference Range Interpretation [...] failure, acidosis, acute neurological disease, and persistent tachyarrhythmia.Proofer Apprentice ID - RISHI WIRON, TIBC, % SAT. (WITHOUT FERRITIN)2020-08-09 04:55:00 Test Item Value Reference Range Interpretation Comments IRON (BEAKER) (test code = 547) 31.0 ug/dL 40.0-160.0 L TOTAL IRON BINDING CAPACITY 338 ug/dL 250-450 (BEAKER) (test code = 769) IRON % SATURATION (2) (BEAKER) 9 % 20-55 L (test code = 2590) Proofer Apprentice ID Dannie BLACKWELL WBASIC METABOLIC [id number] 04:53:00 Test Item Value Reference Range Interpretation [...] S NOT APPLICABLE FOR DIALYSIS PATIEN TS. Proofer Apprentice ID Dannie BLACKWELL WHEPATIC FUNCTION [id number] 04:53:00 Test Item Value Reference Range Interpretation [...] (test code = 19 U/L 6-55 347) Proofer Apprentice ID Dannie BLACKWELL WPROTHROMBIN TIME/[id number] 04:46:00 Test Item Value Reference Range Interpretation [...] is 2.5-3.5 for patients wiht mechanical heart valves.CBC W/PLT COUNT & AUTO [id number] 04:45:00 Test Item Value Reference Range Interpretation [...] 0-1 PERCENT (BEAKER) (test code = 2801) [id number] 04:45:00 Test Item Value Reference Range Interpretation Comments PROTIME (BEAKER) (test code = 55.5 seconds 11.9-14.2 H 759) INR (DEDRA) (test code = 370) 6.47 <=5.90 HH PARTIAL THROMBOPLASTIN TIME 128.5 seconds 22.5-36.0 H (DEDRA) (test code = 760) Effective 12/31/2018: PT Reference Range ChangeNew: 11.9-14.2 Previous: 11.7- 14.7RECOMMENDED COUMADIN/WARFARIN INR THERAPY RANGESSTANDARD DOSE: 2.0-3.0 Includes: PROPHYLAXIS for venous thrombosis, systemic embolization; TREATMENT for venous thrombosis and/or pulmonary embolus.HIGH RISK: Target INR is 2.5-3.5 for patients wiht mechanical heart valves.[id number] 04:40:00 Test Item Value Reference Range Interpretation Comments D-DIMER QUANTITATIVE (DEDRA) 1.74 MG/L FEU <0.50 H (test code [...] (DEDRA) (test code = hemoly zed 635) Proofer Apprentice ID - RISHI WRAD, CHEST, 1 VIEW, NON [id number] 23:34:00Reason for exam:->CHEST PAINShould this be performed at the bedside?->Yes [facility] 1960 Sex: FFINAL REPORT RAD, CHEST, [...] 08/08/2020 23:34:25 CBC W/PLT COUNT & AUTO [id number] 23:31:00 Test Item Value Reference Range Interpretation [...] pg/mL 0-100 H (test code = 700) Proofer Apprentice ID - DBTROPONIN [id number] 23:29:00 Test Item Value Reference Range Interpretation [...] failure, acidosis, acute neurological disease, and persistent tachyarrhythmia.Proofer Apprentice ID - DBBASIC METABOLIC PANEL 2020-08-08 23:24:00 [...] S NOT APPLICABLE FOR DIALYSIS PATIEN TS. Proofer Apprentice ID - DBPROTHROMBIN TIME/[id number] 06:03:00 Test Item Value Reference Range Interpretation [...] is 2.5-3.5 for patients wiht mechanical heart valves.While on [...] is 2.5-3.5 for patients wiht mechanical heart valves.While on warfarin.CBC W/PLT COUNT & AUTO [id number] 06:20:00 Test Item Value Reference Range Interpretation [...] PERCENT (BEAKER) (test code = 2801) PROTHROMBIN TIME/[id number] 06:35:00 Test Item Value Reference Range Interpretation [...] is 2.5-3.5 for patients wiht mechanical heart valves.OCCULT BLOOD, [id number] 23:23:00 Test Item Value Reference Range Interpretation Comments FECAL OCCULT BLOOD (BEAKER) (test Negative Negative code = 618) PROTHROMBIN TIME/[id number] 07:00:00 Test Item Value Reference Range Interpretation [...] is 2.5-3.5 for patients wiht mechanical heart valves.CBC W/PLT COUNT & AUTO [id number] 06:52:00 Test Item Value Reference Range Interpretation [...] code = 2801) MYOCARD IMAGING, MULTI, PHARM, [id number] 16:05:00FINAL REPORT PROCEDURE: MYOCARDIAL PERFUSION SPECT IMAGING (Rest/Stress)CPT CODE: 15623 INDICATION: Elevated troponin CARDIOVASCULAR PROFILE:CAD History: NoneSymptoms: NoneRisk Factors: Tobacco useMedications: In Ansari apparent, levothyroxine, gabapentin STRESS PROTOCOL:Pharmacologic stress was achieved with a 10-second intravenous infusion of Regadenoson 0.4 mg. The radiopharmaceutical was administered 30 seconds after the start of the Regadenoson infusion. IMAGING PROTOCOL:10.4mCi of Tc-99m sestamibi was injected intravenously at [...] MDReport Verified Date/Time: 01/12/2019 16:05:30 Reading Location: [address] Reading Room [id number] 08:57:00 Test Item Value Reference Range Interpretation Comments THYROID STIMULATING HORMONE 1.50 uIU/mL 0.35-4.94 (DEDRA) (test code = 772) [id number] 08:56:00 Test Item Value Reference Range Interpretation Comments T4 TOTAL (BEAKER) (test code = 895) 7.9 ug/dL 4.9-11.7 PROTHROMBIN TIME/[id number] 03:12:00 Test Item Value Reference Range Interpretation [...] is 2.5-3.5 for patients wiht mechanical heart valves.CBC (HEMOGRAM [...] (BEAKER) (test code = 413) BASIC METABOLIC [id number] 14:05:00 Test Item Value Reference Range Interpretation [...] NOT APPLICABLE FOR DIALYSIS PATIEN TS. TROPONIN [id number] 09:07:00 Test Item Value Reference Range Interpretation [...] acidosis, acute neurological disease, and persistent tachyarrhythmia.TROPONIN [id number] 06:51:00 Test Item Value Reference Range Interpretation [...] acute neurological disease, and persistent tachyarrhythmia.BASIC METABOLIC [id number] 06:51:00 Test Item Value Reference Range Interpretation [...] I S NOT APPLICABLE FOR DIALYSIS PATIEN RAHEL. [id number] 06:44:00 Test Item Value Reference Range Interpretation Comments MAGNESIUM (BEAKER) (test code = 1.8 mg/dL 1.6-2.6 627) PT/[id number] 04:26:00 Test Item Value Reference Range Interpretation [...] is 2.5-3.5 for patients wiht mechanical heart valves.Per heparin sliding scalePer heparin sliding scaleHEMOGLOBIN AND [id number] 04:15:00 Test Item Value Reference Range Interpretation Comments HEMOGLOBIN (BEAKER) (test code = 9.5 GM/DL 11.2-15.7 L 410) HEMATOCRIT (BEAKER) (test code = 30.2 % 34.1-44.9 L 411) TROPONIN [id number] 22:28:00 Test Item Value Reference Range Interpretation [...] failure, acidosis, acute neurological disease, and persistent tachyarrhythmia.PT/[id number] 22:15:00 Test Item Value Reference Range Interpretation [...] is 2.5-3.5 for patients wiht mechanical heart valves.Per heparin sliding scalePer heparin sliding scaleRAD, ABDOMEN/KUB, 1 VIEW [id number] 18:44:00Reason for exam:->vomitingFINAL REPORT Abdomen dated January 10, 2019 Comment:Abdomen was examined in the supine frontal position. Air is seen in the small and large bowel without dilatation to suggest mechanical obstruction or ileus. No mass, pathological calcification, or free air is present. Bilateral hip replacements are seen. Impression: No mechanical obstruction or ileus. Signed: Savannah Blancoort Verified Date/Time: 01/10/2019 18:44:41 Reading Location: [facility] C013Y CT Body Reading Room [id number] 14:44:00 Test Item Value Reference Range Interpretation Comments MAGNESIUM (BEAKER) (test code = 1.6 mg/dL 1.6-2.6 627) BASIC METABOLIC [id number] 14:44:00 Test Item Value Reference Range Interpretation [...] NOT APPLICABLE FOR DIALYSIS PATIEN TS. TROPONIN [id number] 14:44:00 Test Item Value Reference Range Interpretation [...] H PERCENT (BEAKER) (test code = 2801) [id number] 13:25:00 Test Item Value Reference Range Interpretation Comments AMYLASE (BEAKER) (test code = 349) 29 U/L 25-125 [id number] 13:25:00 Test Item Value Reference Range Interpretation Comments LIPASE (BEAKER) (test code = 749) 16 U/L 8-78 [id number] 13:24:00 Test Item Value Reference Range Interpretation Comments PARTIAL THROMBOPLASTIN TIME 41.1 seconds 22.5-36.0 H (BEAKER) (test code = 760) 6 hours after starting heparin infusion and as indicated per sliding scale HEMOGLOBIN AND [id number] 13:10:00 Test Item Value Reference Range Interpretation Comments HEMOGLOBIN (BEAKER) (test code = 9.3 GM/DL 11.2-15.7 L 410) HEMATOCRIT (BEAKER) (test code = 30.0 % 34.1-44.9 L 411) U/S, ABDOMINAL, [id number] 12:16:00Abdomen limited area? Add comment if clarification [...] abdomen was not assessed. Impression: Unremarkable right upperquadrant ultrasound. No cause for the patient's pain identified. Signed: Daniel Lopez MDReport Verified Date/Time: 01/10/2019 12:16:23 Reading Location: [address] Consult Reading Room [id number] 20:52:00 Test Item Value Reference Range Interpretation [...] is 2.5-3.5 for patients wiht mechanical heart valves.HEMOGLOBIN AND [id number] 16:23:00 Test Item Value Reference Range Interpretation Comments HEMOGLOBIN (BEAKER) (test code = 9.4 GM/DL 11.2-15.7 L 410) HEMATOCRIT (BEAKER) (test code = 29.9 % 34.1-44.9 L 411) [id number] 07:42:00 Test Item Value Reference Range Interpretation [...] is 2.5-3.5 for patients wiht mechanical heart valves.[id number] 03:41:00 Test Item Value Reference Range Interpretation Comments MAGNESIUM (BEAKER) (test code = 1.7 mg/dL 1.6-2.6 627) BASIC METABOLIC [id number] 03:41:00 Test Item Value Reference Range Interpretation [...] NOT APPLICABLE FOR DIALYSIS PATIEN TS. PROTHROMBIN [id number] 03:35:00 Test Item Value Reference Range Interpretation [...] is 2.5-3.5 for patients wiht mechanical heart valves.HEMOGLOBIN AND [id number] 03:21:00 Test Item Value Reference Range Interpretation Comments HEMOGLOBIN (BEAKER) (test code = 8.8 GM/DL 11.2-15.7 L 410) HEMATOCRIT (BEAKER) (test code = 27.9 % 34.1-44.9 L 411) [id number] 23:57:00 Test Item Value Reference Range Interpretation [...] is 2.5-3.5 for patients wiht mechanical heart valves.[id number] 22:20:00 Test Item Value Reference Range Interpretation [...] is 2.5-3.5 for patients wiht mechanical heart valves.Patient is on agartrobanPatient is on agartrobanHEMOGLOBIN AND [id number] 22:08:00 Test Item Value Reference Range Interpretation Comments HEMOGLOBIN (BEAKER) (test code = 9.6 GM/DL 11.2-15.7 L 410) HEMATOCRIT (BEAKER) (test code = 30.5 % 34.1-44.9 L 411) HEMOGLOBIN AND [id number] 16:25:00 Test Item Value Reference Range Interpretation [...] WBC 0-0 (BEAKER) (test code = 413) [id number] 15:07:00 Test Item Value Reference Range Interpretation Comments PARTIAL THROMBOPLASTIN TIME 59.8 seconds 22.5-36.0 H (BEAKER) (test code = 760) PROTHROMBIN [id number] 14:32:00 Test Item Value Reference Range Interpretation [...] is 2.5-3.5 for patients wiht mechanical heart valves.B-TYPE NATRIURETIC FACTOR (BNP) 2019-01-08 12:44:00 Test Item Value Reference Range Interpretation Comments B-TYPE NATRIURETIC PEPTIDE (BEAKER) 526 pg/mL 0-100 H (test code = 700) [id number] 12:34:00 Test Item Value Reference Range Interpretation Comments POTASSIUM (BEAKER) (test code = 3.9 meq/L 3.5-5.1 379) [id number] 12:34:00 Test Item Value Reference Range Interpretation Comments MAGNESIUM (BEAKER) (test code = 2.0 mg/dL 1.6-2.6 627) [id number] 11:33:00 Test Item Value Reference Range Interpretation Comments PROCALCITONIN (BEAKER) (test code 0.05 ng/mL <0.05 H = 3036) SEPSIS RISK (ng/mL)Low: 0.05-0.50Intermediate: 0.51-2.00High: >=2.01LACTIC ACID, [id number] 10:31:00 Test Item Value Reference Range Interpretation Comments LACTATE BLOOD VENOUS (2) (BEAKER) 0.7 mmol/L 0.5-2.2 (test code = 2872) HEMOGLOBIN AND [id number] 10:10:00 Test Item Value Reference Range Interpretation Comments HEMOGLOBIN (BEAKER) (test code = 8.3 GM/DL 11.2-15.7 L 410) HEMATOCRIT (BEAKER) (test code = 26.2 % 34.1-44.9 L 411) BASIC METABOLIC [id number] 08:27:00 Test Item Value Reference Range Interpretation [...] PATIEN TS. RAD, CHEST, 1 VIEW, NON [id number] 08:17:00Reason for exam:->pulmonary edemaShould this be performed [...] Impression:Decreased pulmonary vascular congestion and improved inspiratory effort.Signed: Shobha Wilksort Verified Date/Time: 01/08/2019 08:17:31 Reading Location: [facility] Reading Room [id number] 08:12:00 Test Item Value Reference Range Interpretation Comments MAGNESIUM (BEAKER) (test code = 2.0 mg/dL 1.6-2.6 627) [id number] 07:14:00 Test Item Value Reference Range Interpretation [...] L (test code = 2590) HEMOGLOBIN AND [id number] 06:25:00 Test Item Value Reference Range Interpretation [...] = 1414) RAD, CHEST, 1 VIEW, NON [id number] 23:31:00Reason for exam:- >DyspneaShould this be performed at the bedside?->YesFINAL REPORT Chest one view. Clinical history: Dyspnea Comparison: None. Techniq ue: A single frontal view of the chest was obtained. Findings/Impression:The patient is status post median sternotomy. There are cardiac valve prostheses.The cardiac silhouette is mildly enlarged. There is pulmonary interstitial edema. There is a trace right pleural effusion. There is no pneumothorax.The bony thorax is demineralized. There are degenerative changes of the right shoulder. Signed: Travis Aguila MDReport Verified Date/Time: 01/07/2019 23:31:03 Reading Location: [address] Reading Room COMPREHENSIVE METABOLIC [id number] 22:56:00 Test Item Value Reference Range Interpretation [...] S NOT APPLICABLE FOR DIALYSIS PATIEN TS. [id number] 22:51:00 Test Item Value Reference Range Interpretation Comments MAGNESIUM (BEAKER) (test code = 1.3 mg/dL 1.6-2.6 L 627) [id number] 22:45:00 Test Item Value Reference Range Interpretation Comments FIBRINOGEN LEVEL (BEAKER) (test 509 mg/dl 225-434 H code = 658) PROTHROMBIN [id number] 22:09:00 Test Item Value Reference Range Interpretation [...] is 2.5-3.5 for patients wiht mechanical heart valves.CBC W/PLT COUNT & AUTO [id number] 22:05:00 Test Item Value Reference Range Interpretation [...]
--- NOTE | 2023-04-17 17:59 | RAD REPORT ---
[facility] 5[facility]48 [facility] CLINICAL HISTORY: CHEST PAIN COMPARISON: Chest Single View dated 05/27/2021; Chest Single View dated 05/09/2021; Chest Single View dated 05/08/2021; Chest Single View dated 10/13/2020 TECHNIQUE: Portable AP view of the chest. FINDINGS: Patchy left perihilar and basilar airspace opacity. No pneumothorax or effusion. The cardi omediastinal contours are unremarkable. IMPRESSION: Patchy left perihilar and basilar airspace opacity, concerning for pneumonia.
[2023-04-17 18:08] LABS: Absolute Lymphocytes (CBC) 0.9 K/uL (0.7-4.9); Lymphocytes % 10.1 % (15.3-44.8); MCV 78.6 fL (80-100); MPV 8.8 fL (7.6-11.3); Platelets 248 thou/uL (152-406); RBC Red Blood Cell Count 4.08 M/uL (3.86-4.86)
[2023-04-17 18:13] LABS: Protime INR 3.32
[2023-04-17 18:29] LABS: Magnesium 1.9 mg/dL (1.6-2.4); Potassium 3.3 mEq/L (3.5-5.1)
[2023-04-17 18:45] LABS: Troponin High Sensitivity 14193.7 pg/mL (<58.9)
--- NOTE | 2023-04-17 18:55 | EDPHYS ---
Physician Documentation [facility] Name: Kim Aldana Age: 62 yrs Sex: Female : 1960 Arrival Date: 04/17/2023 Time: 17:12 Bed 8 Private MD: ED Physician Dipak Duff HPI: 04/17 17:20 This 62 yrs old Female presents to ER via Wheelchair with complaints of Chest Pain. ms3 17:20 62-year-old female with past medical history of lupus, arterial insufficiency, back ms3 pain, cerebritis, chest pain, chronic pain presents for left-sided chest pain that began on Saturday. Patient states pain is sharp and rated 6/10. Patient denies nausea, vomiting, shortness of breath. Patient states she is currently on warfarin for valve replacement.. Historical: - Allergies: 17:17 Aspirin; iw 17:17 Compazine; iw 17:17 Methadone; iw 17:17 Morphine; iw 17:17 Neurontin; iw 17:17 PENICILLINS; iw 17:17 Phenergan; iw 17:17 plastic tape; iw 17:17 Suboxone; iw - PMHx: 17:17 arterial insuficiency; Back pain; cerebritis; chest pain; Chronic pain; dejenteritive iw joint disease; Dyspepsia; esophageal reflux; fatigue; hypersomnia; lumbar radiculitis; Lupus; menopause; osteomyelitis; Panic Attacks; pulmonary edema; Seizures; Tachycardia; TIA; venous insufficiency; - PSHx: 17:17 breast reduction bilateral; hip replacement bilateral; Mitral and Aortic Valve iw replacement; right total knee; bowel resection; - Immunization history:: Adult Immunizations unknown. - Social history:: Smoking status: Patient denies any tobacco usage or history of. ROS: 17:20 Constitutional: Negative for fever, and chills. Neck: Negative for injury, pain, and ms3 swelling. 17:20 Respiratory: Negative for shortness of breath, cough, wheezing, and pleuritic chest pain, Abdomen/GI: Negative for abdominal pain, nausea, vomiting, diarrhea, and constipation, MS/Extremity: Negative for injury and deformity, Skin: Negative for injury, rash, and discoloration. 17:20 Cardiovascular: Positive for chest pain. 17:20 All other systems are negative. Exam: 17:20 Constitutional: This is a well developed, well nourished patient who is awake, alert, ms3 and in no acute distress. Head/Face: Normocephalic, atraumatic. Chest/axilla: Normal chest wall appearance and motion. Nontender with no deformity. Cardiovascular: Regular rate and rhythm with a normal S1 and S2. No gallops, murmurs, or rubs. Normal PMI, no JVD. No pulse deficits. Respiratory: Lungs have equal breath sounds bilaterally, clear to auscultation and percussion. No rales, rhonchi or wheezes noted. No increased work of breathing, no retractions or nasal flaring. Abdomen/GI: Soft, non-tender, with normal bowel sounds. No distension or tympany. No guarding or rebound. No evidence of tenderness throughout. Skin: Warm, dry with normal turgor. Normal color with no rashes, no lesions, and no evidence of cellulitis. MS/ Extremity: Pulses equal, no cyanosis. Neurovascular intact. Full, normal range of motion. 17:20 ECG was reviewed by the Attending Physician. Vital Signs: 17:17 BP 126 / 88; Pulse 92; Resp 16; Temp 98.6; Pulse Ox 98% on R/A; iw 18:54 Weight 68.04 kg; ko1 19:25 BP 133 / 40; Pulse 91; Resp 18 S; Pulse Ox 98% on R/A; ha1 20:29 BP 141 / 56; Pulse 90; Resp 19; Temp 98; Pulse Ox 99% on R/A; rv Laina Coma Score: 20:29 Eye Response: spontaneous(4). Motor Response: obeys commands(6). Verbal Response: rv oriented(5). Total: 15. MDM: 17:19 Patient medically screened. ms3 18:55 Differential diagnosis: abnormal EKG, acute myocardial infarction, coronary artery ms3 disease. 20:28 The patient was given aspirin in the Emergency Department. Data reviewed: vital signs, az3 residential records, lab test result(s), EKG, radiologic studies, and as a result, I will admit patient. Consideration of Admission/Observation Patient was admitted/placed on observation. Management of patient was discussed with the following: Hospitalist: Sharath Walker NP on behalf of Dr Leary. I considered the following discharge prescriptions or medication management in the emergency department Medications were administered in the Emergency Department. See MAR. Independent interpretation of the following test(s) in the Emergency Department EKG: See my EKG interpretation above X-Ray: My interpretation is CXR image reviewed by me shows LLL infiltrate. Counseling: I had a detailed discussion with the patient and/or guardian regarding the historical points, exam findings, and any diagnostic results supporting the discharge/admit diagnosis, lab results, radiology results, the need for further work-up and treatment in the hospital. ED course: Discussed elevated troponin and necessity for admission with patient. She understands/ agrees with plan. All questions answered.. 04/17 17:20 Order name: Basic Metabolic Panel; Complete Time: 18:47 ms3 04/17 17:20 Order name: CBC with Diff; Complete Time: 18:17 ms3 04/17 17:20 Order name: Magnesium; Complete Time: 18:47 ms3 04/17 17:20 Order name: PT-INR; Complete Time: 18:17 ms3 04/17 17:20 Order name: Troponin HS; Complete Time: 18:47 ms3 04/17 17:20 Order name: XRAY Chest (1 view); Complete Time: 18:17 ms3 04/17 17:20 Order name: EKG; Complete Time: 17:21 ms3 04/17 17:20 Order name: Cardiac monitoring; Complete Time: 17:21 ms3 04/17 17:20 Order name: EKG - Nurse/Tech; Complete Time: 17:55 ms3 04/17 17:20 Order name: IV Saline Lock; Complete Time: 17:55 ms3 04/17 17:20 Order name: Labs collected and sent; Complete Time: 17:55 ms3 04/17 17:20 Order name: O2 Per Protocol; Complete Time: 17:21 ms3 04/17 17:20 Order name: O2 Sat Monitoring; Complete Time: 17:21 ms3 EC:20 Rate is 63 beats/min. Rhythm is regular. QRS [place] is Normal. AL interval is normal. QRS ms3 interval is normal. QT interval is normal. Clinical impression: Normal ECG. Interpreted by me. Reviewed by me. Administered Medications: 19:25 Drug: Aspirin PO Chewable Tablet 324 mg Route: PO; ha1 20:30 Follow up: Response: No adverse reaction rv 19:30 Drug: Heparin (IA-Bolus No thrombolytic) - HEParin IVP 60 units/kg {Co-Signature: ha1 rv (Jami Rivera RN).} Route: IVP; Site: right forearm; 20:30 Follow up: Response: No adverse reaction rv 19:31 Drug: Heparin (IA Drip) - (D5W IV 500 ml, [place] [address] units) 12 units/kg/hr rv {Co-Signature: ha1 (Jami Rivera RN).} Route: IV; Rate: calculated rate; Site: right wrist; 20:31 Follow up: IV Status: Infusion continued upon admission rv Disposition: 18:54 Critical Care:. ms3 Disposition Summary: 04/17/23 18:55 Hospitalization Ordered Hospitalization Status: Inpatient Admission ms3 Provider: Lanre Leary ms3 Location: Telemetry/[facility] (Inpatient) ms3 Condition: Stable ms3 Problem: new ms3 Symptoms: are unchanged ms3 Bed/Room Type: [place] ms3 Room Assignment: [facility](04/17/23 20:07) Diagnosis - Subsequent non-ST elevation (NSTEMI) myocardial infarction ms3 - Chest pain, unspecified ms3 Forms: - Medication Reconciliation Form ms3 - SBAR form ms3 - Leadership Thank You Letter ms3 Critical care time excluding procedures: 18:54 Critical care time: Bedside Care: 25 minutes, Consultation: 10 minutes, Family ms3 Intervention: 5 minutes. Total time: 40 minutes Signatures: Dispatcher [employer] Selina Lewis RN RN iw Garcia, Cindy, RN RN cg Adilson Martinez RN RN rv Sims, Marcus, DO DO ms3 Jami Rivera RN RN ha1 Helena Teixeira RN RN ko1 Jami Rivera RN ha1 Corrections: (The following items were deleted from the chart) 20:07 18:55 ms3 cg
--- NOTE | 2023-04-17 18:55 | ER ---
Nurse's Notes [facility] Name: Kim Aldana Age: 62 yrs Sex: Female : 1960 Arrival Date: 04/17/2023 Time: 17:12 Bed 8 Private MD: Diagnosis: Subsequent non-ST elevation (NSTEMI) myocardial infarction;Chest pain, unspecified Presentation: 04/17 17:16 Chief complaint: Patient states: left sided breast pain since Saturday . pain is now in iw left upper back. Coronavirus screen: At this time, the client does not indicate any symptoms associated with coronavirus-19. Ebola Screen: Patient negative for fever greater than or equal to 101.5 degrees Fahrenheit, and additional compatible Ebola Virus Disease symptoms Patient denies exposure to infectious person. Patient denies travel to an Ebola-affected area in the 21 days before illness onset. No symptoms or risks identified at this time. Risk Assessment: Do you want to hurt yourself or someone else? Patient reports no desire to harm self or others. Onset of symptoms was April 15, 2023. 17:16 Method Of Arrival: Wheelchair iw 17:16 Acuity: CABRERA 3 iw 19:57 Initial Sepsis Screen: Does the patient meet any 2 criteria? No. Patient's initial ha1 sepsis screen is negative. Does the patient have a suspected source of infection? No. Patient's initial sepsis screen is negative. Historical: - Allergies: 17:17 Aspirin; iw 17:17 Compazine; iw 17:17 Methadone; iw 17:17 Morphine; iw 17:17 Neurontin; iw 17:17 PENICILLINS; iw 17:17 Phenergan; iw 17:17 plastic tape; iw 17:17 Suboxone; iw - PMHx: 17:17 arterial insuficiency; Back pain; cerebritis; chest pain; Chronic pain; dejenteritive iw joint disease; Dyspepsia; esophageal reflux; fatigue; hypersomnia; lumbar radiculitis; Lupus; menopause; osteomyelitis; Panic Attacks; pulmonary edema; Seizures; Tachycardia; TIA; venous insufficiency; - PSHx: 17:17 breast reduction bilateral; hip replacement bilateral; Mitral and Aortic Valve iw replacement; right total knee; bowel resection; - Immunization history:: Adult Immunizations unknown. - Social history:: Smoking status: Patient denies any tobacco usage or history of. Screenin:[facility] ED Fall Risk Assessment (Adult) History of falling in the last 3 months, ko1 including since admission No falls in past 3 months (0 pts) Confusion or Disorientation No (0 pts) Intoxicated or Sedated No (0 pts) Impaired Gait No (0 pts) Mobility Assist Device Used No (0 pt) Altered Elimination No (0 pt) Score/Fall Risk Level 0 - 2 = Low Risk Oriented to surroundings, Maintained a safe environment, Educated pt \T\ family on fall prevention, incl call for assistance when getting out of bed, Assessed \T\ reinforced patient's understanding of fall precautions, Provided non-skid footwear, Hourly rounding (assess needs \T\ fall precautionary measures) done, Used ambulatory aids as needed (educated on \T\ assisted with), Used gait belt as appropriate. Abuse screen: Denies threats or abuse. Denies injuries from another. Nutritional screening: No deficits noted. Tuberculosis screening: No symptoms or risk factors identified. Assessment: 17:35 General: Appears in no apparent distress. comfortable, Behavior is calm, cooperative, ko1 appropriate for age. Pain: Complains of pain in chest Pain does not radiate. Pain began gradually. Neuro: No deficits noted. Cardiovascular: Reports chest pain. Respiratory: No deficits noted. GI: No deficits noted. : No deficits noted. EENT: No deficits noted. Derm: No deficits noted. Musculoskeletal: No deficits noted. 19:25 General: Appears comfortable, Behavior is calm, cooperative. Neuro: Level of ha1 Consciousness is awake, alert, obeys commands, Oriented to person, place, time, situation. Cardiovascular: Patient's skin is warm and dry. Respiratory: Airway is patent Respiratory effort is even, unlabored, Respiratory pattern is regular, symmetrical. Derm: Skin is fragile, Skin is moist, Skin is normal. Vital Signs: 17:17 BP 126 / 88; Pulse 92; Resp 16; Temp 98.6; Pulse Ox 98% on R/A; iw 18:54 Weight 68.04 kg; ko1 19:25 BP 133 / 40; Pulse 91; Resp 18 S; Pulse Ox 98% on R/A; ha1 20:29 BP 141 / 56; Pulse 90; Resp 19; Temp 98; Pulse Ox 99% on R/A; rv Winfred Coma Score: 20:29 Eye Response: spontaneous(4). Motor Response: obeys commands(6). Verbal Response: rv oriented(5). Total: 15. ED Course: 17:13 Patient arrived in ED. im 17:17 Triage completed. iw 17:17 Arm band placed on. iw 17:19 Dipak Duff DO is Attending Physician. ms3 17:21 Helena Teixeira, MELQUIADES is Primary Nurse. ko1 17:35 Patient has correct armband on for positive identification. Bed in low position. Call ko1 light in reach. Side rails up X2. Provided Education on: na. Client placed on continuous cardiac and pulse oximetry monitoring. NIBP monitoring applied. school lunch monitor on. Door closed. Noise minimized. Warm blanket given. 17:35 Patient maintains SpO2 saturation greater than 95% on room air. ko1 17:50 XRAY Chest (1 view) In Process Unspecified. EDMS 17:55 Basic Metabolic Panel Sent. ko1 17:55 CBC with Diff Sent. ko1 17:55 Magnesium Sent. ko1 17:55 PT-INR Sent. ko1 17:55 Troponin HS Sent. ko1 18:02 Inserted saline lock: 20 gauge in left wrist, using aseptic technique. Blood collected. ld1 18:55 Lanre Leary MD is Hospitalizing Provider. ms3 19:26 Inserted saline lock: 24 gauge in left wrist, using aseptic technique. ha1 20:28 No provider procedures requiring assistance completed. Patient admitted, IV remains in rv place. Administered Medications: 19:25 Drug: Aspirin PO Chewable Tablet 324 mg Route: PO; ha1 20:30 Follow up: Response: No adverse reaction rv 19:30 Drug: Heparin (MT-Bolus No thrombolytic) - HEParin IVP 60 units/kg {Co-Signature: ha1 rv (Jami Rivera RN).} Route: IVP; Site: right forearm; 20:30 Follow up: Response: No adverse reaction rv 19:31 Drug: Heparin (MT Drip) - (D5W IV 500 ml, [place] [address] units) 12 units/kg/hr rv {Co-Signature: ha1 (Jami Rivera RN).} Route: IV; Rate: calculated rate; Site: right wrist; 20:31 Follow up: IV Status: Infusion continued upon admission rv Medication: 20:30 VIS not applicable for this client. rv Outcome: 18:55 Decision to Hospitalize by Provider. ms3 20:30 Admitted to Med/surg accompanied by nurse, via wheelchair, room 211, with chart, Report rv called to BETTY ARNETT 20:30 Condition: stable 20:30 Instructed on the need for admit. 20:36 Patient left the ED. rv Signatures: Dispatcher [employer] EDSelina Portillo, RN Adilson Alvarez RN RN rv Dipak Duff DO DO ms3 Xiomy Duff RN RN alexx1 Jami Rivera, RN RN ha1 Helena Teixeira RN RN ko1 Seema Quiroz Heidy RN ha1
--- NOTE | 2023-04-17 19:20 | P.HP ---
Certification for Inpatient Patient admitted to: Inpatient With expected LOS: >2 Midnights Patient will require the following post-hospital care: None Practitioner: I am a practitioner with admitting privileges, knowledge of patient current condition, hospital course, and medical plan of care. Services: Services provided to patient in accordance with Admission requirements found in Title 42 Section 412.3 of the Code of Federal Regulations <Sharath Walker Talia Hopkins - Last Filed: 04/17/23 19:16> Patient History Date of Service: 04/17/23 Reason for admission: NSTEMI History of Present Illness: 62-year-old female with history of PAD, GERD, lupus, seizure disorder, previous TIA with previous aortic/mitral valve replacements on warfarin presents emergency department chief complaint of chest pain. She reports that her chest pain began on Saturday, described as somebody kicking her in the chest with pain radiating to the back, she did have an episode of diaphoresis on Saturday as well. She reports her pain has been more mild than it was then but she still has persistent pain primarily in her upper back area. She was evaluated in the emergency department her EKG was without STEMI criteria her initial high- sensitivity troponin was 14,193.7 INR is 3.32 hemoglobin 10.6 medic at 32. ED physician discussed case with cardiology who recommends initiation of heparin drip, aspirin and plans on heart catheterization in the morning. - Past Medical/Surgical History Diabetic: No -: Systemic lupus erythematous -: cerebritis -: Seizure disorder -: DJD, chronic pain -: GERD -: Chronic steroid use -: Arterial/venous insufficiency -: Anxiety/panic disorder -: amputation of toes left foot -: Bilateral HIP REPLACED -: RIGHT KNEE REPLACED -: MITRAL and AORTIC VALVE REPLACED -: tubal ligation -: Colon sx -: Partial left foot removed Psychosocial/ Personal History: Patient reports that she lives alone with her dog, has caretakers most days of the week. - Family History Sister -: Heart disease - Social History Alcohol use: No CD- Drugs: No Caffeine use: No Place of Residence: Home <MicaSharath brian - Last Filed: 04/17/23 19:16> Date of Service: 04/18/23 <Lanre Leary - Last Filed: 04/18/23 18:49> Allergies Penicillins Allergy (Intermediate, Verified 02/06/23 12:32) Itching/Hives/Rash prochlorperazine [From Compazine] Allergy (Intermediate, Verified 02/06/23 12:32) Nausea/Vomiting prochlorperazine edisylate [From Compazine] Allergy (Intermediate, Verified 02/06/23 12:32) Nausea/Vomiting prochlorperazine maleate [From Compazine] Allergy (Intermediate, Verified 02/06/23 12:32) Nausea/Vomiting promethazine [From Phenergan] Allergy (Intermediate, Verified 02/06/23 12:32) Nausea/Vomiting promethazine HCl [From Phenergan] Allergy (Verified 02/06/23 12:32) Nausea/Vomiting Home Medications: Levothyroxine [Synthroid*] 150 mcg PO DAILY 11/11/19 Metoprolol Succinate [Toprol Xl*] 50 mg PO DAILY 11/11/19 Omeprazole [Prilosec] 40 mg PO DAILY 11/11/19 Venlafaxine HCl [Effexor*] 150 mg PO DAILY 11/11/19 Acyclovir 400 mg PO DAILY 11/01/20 Amitriptyline [Elavil*] 25 mg PO BID 11/01/20 Cyclobenzaprine [Flexeril*] 10 mg PO QID 11/01/20 Warfarin Sodium [Coumadin*] 3.5 mg PO DAILY AT SUPPER 11/01/20 predniSONE [Prednisone] 2.5 mg PO DAILY #7 tablet 05/31/21 Review of Systems 10-point ROS is otherwise unremarkable Cardiovascular: Chest Pain <Sharath Walker Sandeep - Last Filed: 04/17/23 19:16> Physical Examination - Physical Exam General: Alert, In no apparent distress, Oriented x3 HEENT: Atraumatic, PERRLA, Mucous membr. moist/pink, EOMI, Sclerae nonicteric Neck: Supple, 2+ carotid pulse no bruit, No LAD, Without JVD or thyroid abnormality Respiratory: Clear to auscultation bilaterally, Normal air movement Cardiovascular: Regular rate/rhythm, Normal S1 S2, Other (Audible click) Gastrointestinal: Normal bowel sounds, No tenderness Musculoskeletal: No tenderness Integumentary: No rashes Neurological: Normal gait, Normal speech, Normal strength at 5/5 x4 extr, Normal tone, Normal affect Lymphatics: No axilla or inguinal lymphadenopathy - Studies Laboratory Data (last 24 hrs) 04/17/23 04/17/23 04/17/23 17:59 17:59 17:59 WBC 8.60 Hgb 10.6 L Hct 32.0 L Plt Count 248 PT 36.5 H INR 3.32 Sodium 134 L Potassium 3.3 L BUN 11 Creatinine 0.85 Glucose 113 H Magnesium 1.9 <Sharath Walker - Last Filed: 04/17/23 19:16> Assessment and Plan - Plan Assessment: NSTEMI History of aortic/mitral valve replacements on chronic anticoagulation with warfarin Lupus Seizure disorder GERD Plan: NSTEMI Continue heparin drip, cardiology has been consulted n.p.o. after midnight for heart catheterization in the morning. Aspirin, statin, beta-bill ordered. EKG without STEMI criteria, repeat EKG for worsening symptoms. Last heart catheterization "a few years ago", has not needed stents in the past. Last echocardiogram also around the same time. History of aortic/mitral valve replacements on chronic anticoagulation with warfarin Case discussed with cardiology by ED physician recommendation for continuous heparin infusion, will hold warfarin for now. Valves replaced in the s. Lupus Continue home medications Seizure disorder Last seizure "many years ago". Does not take any daily seizure control medications. GERD Continue home medications. DVT PPX: Heparin drip Code status: Full Discharge Plan: Home Plan to discharge in: Greater than 2 days - Advance Directives Does patient have a Living Will: No Does patient have a Durable POA for Healthcare: No - Code Status/Comfort Care Code Status Assessed: Yes (Full code) Critical Care: No Time Spent Managing Pts Care (In Minutes): 55 <Sharath Walker - Last Filed: 04/17/23 19:16> Physician Review: Patient Assessed, Agree with Above Assessment and Plan <Lanre Leary - Last Filed: 04/18/23 18:49>
[2023-04-17] MEDS ORDERED: HEPARIN 5000 UNIT/ML 1 ML VIAL ONE ×2 (19:34→19:36)
[2023-04-17] MEDS ORDERED: ASPIRIN 81 MG CHEWABLE TABLET ONE (19:34)
[2023-04-17] MEDS ORDERED: HEPARIN/D5W 25,000 UNIT/500 ML BAG IV ONE (19:34)
[2023-04-17] MEDS ORDERED: MORPHINE 2 MG/ML SYR IV PRN (20:07)
[2023-04-17 22:12] VITALS: BMI 23.4
[2023-04-17] MEDS: ATORVASTATIN 40 MG TAB PO SCH (22:12)
[2023-04-18 03:46] LABS: Absolute Lymphocytes (CBC) 1.1 K/uL (0.7-4.9); Lymphocytes % 13.2 % (15.3-44.8); MCV 78.1 fL (80-100); Platelets 225 thou/uL (152-406); RBC Red Blood Cell Count 3.84 M/uL (3.86-4.86)
[2023-04-18 04:11] LABS: Magnesium 1.8 mg/dL (1.6-2.4); Potassium 3.1 mEq/L (3.5-5.1); Thyroid Stimulating Hormone 0.077 uIU/mL (0.358-3.740)
[2023-04-18 04:29] LABS: Troponin High Sensitivity 14483.4 pg/mL (<58.9)
[2023-04-18] MEDS: METOPROLOL TAR 25 MG TAB PO SCH ×2 (05:18→17:20)
[2023-04-18] MEDS: KCL 20 MEQ/100 mL IVPB 20 MEQ/100 ML BAG IV SCH ×2 (08:34→12:08)
[2023-04-18] MEDS ORDERED: NA CHLORIDE 0.9% 250 ML ONE (08:52)
[2023-04-18] MEDS: ASPIRIN EC 81 MG TAB PO SCH (09:00)
--- NOTE | 2023-04-18 10:25 | CON ---
Date of Consultation: 04/18/2023 Reason For Consultation: Chest pain with elevated troponin. History Of Present Illness: A 62-year-old female, history of peripheral vascular disease, lupus, aci d reflux, TIA, double valve replacement mitral and aortic, on warfarin, presented with chest pain, on and off, pressure like, radiates to the left upper extremity, good controlled with nitroglycerin and pain comes back. I saw her by bedside. She appears to be comfortable. No distress. Past Medical History: As outlined above in the HPI. Medications: Refer to reconciliation sheet for detailed list. Allergies: ALLERGIES WERE REVIEWED. Family History: No premature coronary artery disease or cancer. Social History: She does not smoke or drink. Does not use any drugs. Review of Systems: All systems reviewed and they were negative except what mentioned in HPI. Physical Examination: Vital Signs: Reviewed. Head and Neck: Pupils are equal, reactive to light. Intact eye movements. No JVD. No cervical lym phadenopathy. Neck is supple. Thyroid is not enlarged. Lungs: Clear to auscultation bilaterally. No rhonchi, wheezing, or crackles. No accessory muscle u se. Heart: Regular rate and rhythm. No extra sounds. Abdomen: Soft, nontender. Bowel sounds positive. No organomegaly. No masses or hernia. No rigidi ty or rebound. Extremities: No edema, clubbing, or cyanosis. Intact pulses. Skin: No rash. Neurologic: Alert, awake, oriented x3. No acute focal deficits appreciated. Investigations: Hemoglobin is 10 and troponin 14,483. BUN is 9, creatinine 0.75. Assessment And Recommendations: 1.Non-ST elevation myocardial infarction. She needs coronary angiogram. She is on IV heparin and b fannie aspirin to continue, but her INR was 3.2. Repeat INR today. When INR is below 2, then we will p roceed for coronary angiogram. In the interim, use nitro patch 1 inch to the upper chest wall every 8 hours and continue metoprolol. 2.Dyslipidemia. Continue statin. 3.Mitral valve replacement and aortic valve replacement, both are mechanical. Continue IV heparin a nd once we do the heart catheterization, then she needs to be bridged until she gets therapeutic agai n on Coumadin. Coumadin is on hold now due to the need to perform coronary angiogram. SR/MODL Voice ID: [id number] Report ID: [id number]
[2023-04-18 12:22] LABS: Protime INR 2.26
--- NOTE | 2023-04-18 13:02 | EKG ---
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
--- NOTE | 2023-04-18 13:58 | ECHO ---
HEIGHT: 5 ft 6 in WEIGHT: 145 lb 6.4 oz DATE OF STUDY: 04/18/[address]: Sharath Walker NP 2-DIMENSIONAL: YES M.MODE: YES DOPPLER: YES COLOR FLOW: YES TDS: NO PORTABLE: YES DEFINITY: NO BUBBLE STUDY: NO DIAGNOSIS: NSTEMI CARDIAC HISTORY: CATHERIZATION: NO SURGERY: YES PROSTHETIC VALVE: YES PACEMAKER: NO MEASUREMENTS (cm) DIASTOLIC (NORMALS) SYSTOLIC (NORMALS) IVSd 1.1 (0.6-1.2) LA Diam (1.9-4.0) LVEF 42% LVIDd 4.3 (3.5-5.7) LVIDs 3.5 (2.0-3.5) %FS 20% LVPWd 1.2 (0.6-1.2) Ao Diam 2.6 (2.0-3.7) 2 DIMENSIONAL ASSESSMENT: RIGHT ATRIUM: NORAML LEFT ATRIUM: NORMAL RIGHT VENTRICLE: NORMAL LEFT VENTRICLE: DEPRESSED EF TRICUSPID VALVE: NORMAL MITRAL VALVE: MECHANICAL PROSTHESIS PULMONIC VALVE: MILD PUMONARY REGURGITATION AORTIC VALVE: MECHANICAL PROSTHESIS PERICARDIAL EFFUSION: NONE AORTIC ROOT: NORMAL LEFT VENTRICULAR WALL MOTION: ANTERIOR, APICAL HYPOKINESIS. DOPPLER/COLOR FLOW: SEE BELOW. COMMENTS: 1. MILDLY DEPRESSED LEFT VENTRICULAR EJECTION FRACTION 40% WITH APICAL, ANTERIOR HYPOKINESIS. 2. AORTIC VALVE MECHANICAL PROSTHESIS IS FUNCTIONING WELL. 3. MITRAL VALVE MECHANICAL PROSTHESIS IS FUNCTIONING WELL. TECHNOLOGIST: Moe DUFFY
--- NOTE | 2023-04-18 18:55 | P.PN ---
Subjective Date of Service: 04/18/23 Chief Complaint: NSTEMI No acute events since admission. She reports persistent chest pain. She denies any shortness of breath, cough, or palpitations. Review of Systems 10-point ROS is otherwise unremarkable Cardiovascular: Chest Pain Physical Examination - Vital Signs Temperature: 97.7 F Blood Pressure: 135/74 Pulse: 104 Respirations: 16 Pulse Ox (%): 96 - Physical Exam General: Alert, In no apparent distress, Oriented x3 HEENT: Atraumatic, Mucous membr. moist/pink, Sclerae nonicteric Neck: JVD not distended Respiratory: Clear to auscultation bilaterally, Normal air movement Cardiovascular: No edema, Regular rate/rhythm, Normal S1 S2, No gallops, No rubs, No murmurs Gastrointestinal: Normal bowel sounds, Soft and benign, Non-distended, No tenderness, No rebound, No guarding Musculoskeletal: No clubbing Integumentary: No rashes Neurological: Normal speech, Normal affect Assessment And Plan - Plan # Non-ST Segment Elevation Myocardial Infarction # Chronic Compensated Systolic Congestive Heart Failure # History of Mechanical Aortic and Mitral Valve Replacements - Evaluation thus far: - EKG: without STEMI criteria, trend - Serial troponin: 17963.1 -> 74828.7 -> 12167.4 - Transthoracic echocardiogram = "1. mildly depressed left ventricular ejection fraction 40% with apical, anterior hypokinesis. 2. aortic valve mechanical prosthesis is functioning well. 3. mitral valve mechanical prosthesis is functioning well." - Management plan: - Consult Cardiology and spoke with Dr. Crespo - recommendations appreciated - Plan for [facility] tomorrow - S/P aspirin 324 mg PO x 1 in ED - Continue aspirin, atrovastatin, metoprolol, and heparin drip - Hold home warfarin and monitor INR - Consider adding CRISTINA-inhibitor/ARB as tolerated # Possible Community-Acquired Pneumonia - Evaluation thus far: - Does not meet sepsis criteria - Procalcitonin = pending - Chest x-ray = "patchy left perihilar and basilar airspace opacity, concerning for pneumonia." - Management plan: - Started ceftriaxone + azithromycin - Consulted Respiratory Therapy - Supplemental oxygen to maintain SpO2 > 92% - Encouraged incentive spirometry # Systemic Lupus Erythematosus # Seizure Disorder # Gastroesophageal Reflux Disease - Reconcile home medications once verified Lanre Leary M.D.
[2023-04-18] MEDS ORDERED: FENTANYL CITR 100 MCG/2 ML IV ONE (20:45)
[2023-04-18] MEDS ORDERED: FAMOTIDINE 20 MG/2 ML VIAL IV PRN (20:45)
[2023-04-18] MEDS: CEFTRIAXONE 1,000 MG in NA CHLORIDE 0.9% 50 ML IVPB SCH (21:33)
[2023-04-18] MEDS: ATORVASTATIN 40 MG TAB PO SCH (21:33)
[2023-04-18] MEDS ORDERED: FENTANYL CITR 100 MCG/2 ML ONE (22:00)
[2023-04-18] MEDS ORDERED: FAMOTIDINE 20 MG/2 ML VIAL IV ONE (22:01)
[2023-04-18] MEDS: DOXYCYCLINE 100 MG in NA CHLORIDE 0.9% 100 ML IVPB SCH (22:40)
[2023-04-19] MEDS: METOPROLOL TAR 25 MG TAB PO SCH ×2 (06:00→16:34)
[2023-04-19 06:33] LABS: Absolute Lymphocytes (CBC) 1.1 K/uL (0.7-4.9); Hematocrit 33.6 % (36.0-45.0); Lymphocytes % 12.4 % (15.3-44.8); MCV 79.3 fL (80-100); MPV 9.6 fL (7.6-11.3); Platelets 279 thou/uL (152-406); RBC Red Blood Cell Count 4.23 M/uL (3.86-4.86)
[2023-04-19 06:37] LABS: Protime INR 1.65
[2023-04-19] MEDS ORDERED: FENTANYL CITR 100 MCG/2 ML ONE (07:02)
[2023-04-19] MEDS ORDERED: HEPA 1000U/500MLS 2,000 UNIT/1,000 ML BAG IV ONE (07:02)
[2023-04-19] MEDS ORDERED: LIDOCAINE 1% 20 ML MDV ONE (07:02)
[2023-04-19] MEDS ORDERED: NITROGLYCERIN 100 MCG/ML SYR (for cath lab use only) IV ONE (07:03)
[2023-04-19] MEDS ORDERED: MIDAZOLAM HCL 2 MG/2 ML INJ ONE (07:03)
[2023-04-19] MEDS ORDERED: HEPARIN 10,000 UNIT/10 ML VIAL IV ONE (07:03)
[2023-04-19] MEDS ORDERED: NITROGLYCERIN/D5W 25 MG/250 ML BTL IV ONE (07:03)
[2023-04-19] MEDS ORDERED: ASPIRIN 325 MG TAB ONE (07:04)
[2023-04-19] MEDS ORDERED: ATROPINE SULF 1 MG/10 ML SYR IV ONE (07:04)
[2023-04-19] MEDS ORDERED: TICAGRELOR 90 MG TABLET PO ONE (07:04)
[2023-04-19] MEDS ORDERED: CLOPIDOGREL 75 MG TABLET ONE ×2 (07:04→08:35)
[2023-04-19] MEDS ORDERED: NA CHLORIDE 0.9% 500 ML ONE (07:18)
[2023-04-19] MEDS ORDERED: METOPROLOL TARTRATE 5 MG/5 ML INJ IV ONE (07:49)
[2023-04-19] MEDS ORDERED: FAMOTIDINE 20 MG TAB ONE (08:42)
[2023-04-19] MEDS: ASPIRIN EC 81 MG TAB PO SCH (09:00)
--- NOTE | 2023-04-19 09:45 | OP ---
Date of Procedure: 04/19/2023 Surgeon: KASSI BARRETT Procedures Performed: 1.Selective coronary angiogram. 2.Left heart catheterization. 3.Percutaneous coronary intervention of critical ostial left anterior descending stenosis, used 3.0 x 12 mm Synergy drug-eluting stent. 4.Percutaneous coronary intervention of critical distal left anterior descending 100% stenosis, used 2.25 x 16 mm Synergy drug-eluting stent. Indication: Non-ST elevation myocardial infarction. Access: Right femoral artery 6-Tanzanian closed with 6-Tanzanian Angio-Seal. Complications: None. Bleeding: Less than 20 mL. Total Sedation Time: 45 minutes. Description Of Procedure: After risks, benefits, and alternatives were explained, patient agreed to procedure and signed informed consent. Patient was brought into the cardiac catheterization laborato ry, prepped and draped in sterile fashion. Then, I accessed right femoral artery using micropuncture kit, fluoroscopy, ultrasound guidance, placed a 6-Tanzanian [place] sheath and then took a 6-Tanzanian JL 4 catheter into the aortic root, engaged the left main, took standard views and then exchanged for 6- Tanzanian JR4 catheter, engaged the RCA, took standard views and then gave systemic heparin to assure HC T level above 250 and then took a 6-Tanzanian EBU 3.5 guide into aortic root over a J-wire, engaged the left main and then took a Runthrough wire into the left main and LAD and placed it distally crossing stenosis and then using a 3.0 balloon, I pre-dilated the proximal lesion and using a 2.0 balloon, I p redilated the distal lesion. There was no reflow in the distal portion. However, I placed 3.0 x 12 mm Synergy drug-eluting stent ostially with excellent expansion and complete resolution of the stenos is and then placed 2.25 x 60 mm Synergy drug-eluting stent in the distal portion. Established KATHI 1 flow, gave nitroglycerin and KATHI flow improved slightly. I then took the wire out. Final angiogra m was acceptable and likely this stenosis is old and on echo, the apex is not moving, so there is billie y high chance that it can be occluded again in the distal stent. I will recommend to put her on IV h eparin for the next 72 hours and re-take a look for Saturday. Findings: 1.Left main: Distal 20%. LAD ostial 99%, status post successful PCI as above and then the LAD is w ith diffuse 20% to 30%, then distally close to the apex is 100% occluded status post successful PCI a s above and diagonal branches are very small and diffusely diseased. 2.Left circumflex: It is moderate in size and after takeoff of the OM1, there is 40% stenosis, foca l and a OM1 branch has distal 30% stenosis. 3.RCA is large and dominant with normal proximal mid and distal segment, but the PDA has diffuse 50% stenosis. Conclusion: 1.Severe LAD stenosis, both ostial and distal, status post PCI as above. 2.Moderate coronary artery disease elsewhere. Plan: Aspirin, Plavix, and statin and keep her on heparin for the next 72 hours and plan to revisit on Saturday. /GERARDO Voice ID: [id number] Report ID: [id number]
[2023-04-19] MEDS: CEFTRIAXONE 1,000 MG in NA CHLORIDE 0.9% 50 ML IVPB SCH (10:37)
[2023-04-19 11:18] LABS: Magnesium 1.8 mg/dL (1.6-2.4); Potassium 3.2 mEq/L (3.5-5.1)
[2023-04-19] MEDS: DOXYCYCLINE 100 MG in NA CHLORIDE 0.9% 100 ML IVPB SCH ×2 (11:35→21:27)
[2023-04-19] MEDS: HEPARIN/D5W 25,000 UNIT/500 ML BAG IV SCH (17:59)
--- NOTE | 2023-04-19 19:18 | P.PN ---
Subjective Date of Service: 04/19/23 Chief Complaint: NSTEMI She was seen this morning following her cardiac catheterization. Per Dr. Crespo, she was found to have multivessel coronary artery disease s/p multiple stents. He recommends aspirin, clopidogrel, and heparin drip for 72 hours. He plans to re-assess her on Saturday. She reports that her chest pain has subsided. She denies any shortness of breath, cough, or palpitations. Review of Systems 10-point ROS is otherwise unremarkable Cardiovascular: Chest Pain (much improved) Physical Examination - Vital Signs Temperature: 98.5 F Blood Pressure: 104/62 Pulse: 112 Respirations: 18 Pulse Ox (%): 98 - Physical Exam General: Alert, In no apparent distress, Oriented x3 HEENT: Atraumatic, Mucous membr. moist/pink, Sclerae nonicteric Neck: JVD not distended Respiratory: Clear to auscultation bilaterally, Normal air movement Cardiovascular: No edema, Regular rate/rhythm, Other (audible mechanical valve click) Gastrointestinal: Normal bowel sounds, Soft and benign, Non-distended, No tenderness, No rebound, No guarding Musculoskeletal: No clubbing Integumentary: No rashes Neurological: Normal speech, Normal affect Assessment And Plan - Plan # Non-ST Segment Elevation Myocardial Infarction # Chronic Compensated Systolic Congestive Heart Failure # History of Mechanical Aortic and Mitral Valve Replacements - Evaluation thus far: - EKG: without STEMI criteria, trend - Serial troponin: 35472.1 -> 03963.7 -> 40015.4 - Transthoracic echocardiogram = "1. mildly depressed left ventricular ejection fraction 40% with apical, anterior hypokinesis. 2. aortic valve mechanical prosthesis is functioning well. 3. mitral valve mechanical prosthesis is functioning well." - Management plan: - Consult Cardiology and spoke with Dr. Crespo - recommendations appreciated - S/P C today with multivessel CAD s/p PCI - Dr. Crespo recommends aspirin, clopidogrel, and heparin drip for 72 hours and to re-assess her on 04/22/2023 - Continue aspirin, atrovastatin, clopidogrel, metoprolol, and heparin drip - Hold home warfarin and monitor INR - Consider adding CRISTINA-inhibitor/ARB as tolerated # Hyperthyroidism - TSH 0.077, Free T4 1.75 - Asymptomatic, will monitor for now - May need methimazole if she becomes symptomatic # Possible Community-Acquired Pneumonia - Evaluation thus far: - Does not meet sepsis criteria - Procalcitonin = < 0.05 - Chest x-ray = "patchy left perihilar and basilar airspace opacity, concerning for pneumonia." - Management plan: - Started ceftriaxone + azithromycin - Consulted Respiratory Therapy - Supplemental oxygen to maintain SpO2 > 92% - Encouraged incentive spirometry # Systemic Lupus Erythematosus # Seizure Disorder # Gastroesophageal Reflux Disease - Reconcile home medications once verified Lanre Leary M.D.
[2023-04-19] MEDS: Mupirocin NASAL 2 APPL/1 GM TUBE NAS SCH (20:27)
[2023-04-19] MEDS: ATORVASTATIN 40 MG TAB PO SCH (20:27)
[2023-04-20] MEDS: METOPROLOL TAR 25 MG TAB PO SCH ×2 (05:08→18:00)
[2023-04-20 05:35] LABS: Absolute Lymphocytes (CBC) 0.6 K/uL (0.7-4.9); Hematocrit 30.5 % (36.0-45.0); Lymphocytes % 11.9 % (15.3-44.8); MCV 78.7 fL (80-100); MPV 9.1 fL (7.6-11.3); Platelets 237 thou/uL (152-406); RBC Red Blood Cell Count 3.87 M/uL (3.86-4.86)
[2023-04-20 05:52] LABS: Magnesium 1.7 mg/dL (1.6-2.4); Potassium 2.9 mEq/L (3.5-5.1)
[2023-04-20] MEDS: Mupirocin NASAL 2 APPL/1 GM TUBE NAS SCH ×2 (09:10→22:06)
[2023-04-20] MEDS: CLOPIDOGREL 75 MG TABLET PO SCH (09:13)
[2023-04-20] MEDS: ASPIRIN EC 81 MG TAB PO SCH (09:13)
[2023-04-20] MEDS: CEFTRIAXONE 1,000 MG in NA CHLORIDE 0.9% 50 ML IVPB SCH (09:14)
[2023-04-20] MEDS: DOXYCYCLINE 100 MG in NA CHLORIDE 0.9% 100 ML IVPB SCH ×2 (09:19→22:05)
--- NOTE | 2023-04-20 13:07 | P.PN ---
Subjective Date of Service: 04/20/23 Chief Complaint: NSTEMI No new events. She reports that she feels well this morning. Her chest pain has completely resolved. She remains on a heparin drip. She denies any shortness of breath, cough, or palpitations. Review of Systems 10-point ROS is otherwise unremarkable Physical Examination - Vital Signs Temperature: 97.1 F Blood Pressure: 106/58 Pulse: 98 Respirations: 17 Pulse Ox (%): 97 Assessment And Plan - Plan - Physical Exam General: Alert, In no apparent distress, Oriented x3 HEENT: Atraumatic, Mucous membr. moist/pink, Sclerae nonicteric Neck: JVD not distended Respiratory: Clear to auscultation bilaterally, Normal air movement Cardiovascular: No edema, Regular rate/rhythm, Other (audible mechanical valve click) Gastrointestinal: Normal bowel sounds, Soft, Non-distended, No tenderness Musculoskeletal: No clubbing Integumentary: No rashes Neurological: Normal speech, Normal affect # Non-ST Segment Elevation Myocardial Infarction # Chronic Compensated Systolic Congestive Heart Failure # History of Mechanical Aortic and Mitral Valve Replacements - Evaluation thus far: - EKG: without STEMI criteria, trend - Serial troponin: 94681.1 -> 15757.7 -> 83803.4 - Transthoracic echocardiogram = "1. mildly depressed left ventricular ejection fraction 40% with apical, anterior hypokinesis. 2. aortic valve mechanical prosthesis is functioning well. 3. mitral valve mechanical prosthesis is functioning well." - Management plan: - Consult Cardiology and spoke with Dr. Crespo - recommendations appreciated - S/P C on 04/19 with multivessel CAD s/p PCI - Dr. Crespo recommends aspirin, clopidogrel, and heparin drip for 72 hours and to re-assess her on 04/22/2023 - Continue aspirin, atrovastatin, clopidogrel, metoprolol, and heparin drip - Hold home warfarin and monitor INR - Consider adding CRISTINA-inhibitor/ARB as tolerated # Hyperthyroidism - TSH 0.077, Free T4 1.75 - Asymptomatic, will monitor for now - May need methimazole if she becomes symptomatic # Possible Community-Acquired Pneumonia - Evaluation thus far: - Does not meet sepsis criteria - Procalcitonin = < 0.05 - Chest x-ray = "patchy left perihilar and basilar airspace opacity, concerning for pneumonia." - Management plan: - Started ceftriaxone + azithromycin - Consulted Respiratory Therapy - Supplemental oxygen to maintain SpO2 > 92% - Encouraged incentive spirometry # Systemic Lupus Erythematosus # Seizure Disorder # Gastroesophageal Reflux Disease - Reconcile home medications once verified Lanre Leary M.D.
[2023-04-20] MEDS ORDERED: PREDNISONE 2.5 MG PO SCH (16:00)
[2023-04-20] MEDS: KCL 20 MEQ/100 mL IVPB 20 MEQ/100 ML BAG IV SCH ×2 (16:22→22:58)
[2023-04-20] MEDS ORDERED: NA CHLORIDE 0.9% 500 ML ONE (16:32)
[2023-04-20] MEDS: predniSONE 5 MG TAB PO SCH (16:54)
[2023-04-20] MEDS: VENLAFAXINE HCL 75 MG TABLET PO SCH (16:55)
[2023-04-20] MEDS: ATORVASTATIN 40 MG TAB PO SCH (22:06)
[2023-04-21] MEDS ORDERED: KCL 20 MEQ/100 mL IVPB 20 MEQ/100 ML BAG IV SCH ×2 (02:45→13:00)
[2023-04-21] MEDS: KCL 20 MEQ/100 mL IVPB 20 MEQ/100 ML BAG IV SCH (03:03)
[2023-04-21] MEDS ORDERED: NA CHLORIDE 0.9% 250 ML ONE (03:21)
[2023-04-21] MEDS: HEPARIN/D5W 25,000 UNIT/500 ML BAG IV SCH (04:10)
[2023-04-21] MEDS: METOPROLOL TAR 25 MG TAB PO SCH ×2 (05:28→18:15)
[2023-04-21 06:23] LABS: Protime INR 1.25
--- NOTE | 2023-04-21 08:09 | RAD REPORT ---
[facility]59 [facility] CLINICAL HISTORY: follow-up COMPARISON: Chest Single View dated 04/17/2023; Chest Single View dated 05/27/2021; Chest Single View dated 05/09/2021; Chest Single View dated 05/08/2021 TECHNIQUE: Portable AP view of the chest. FINDINGS: The lungs are clear. No pneumothorax or effusion. The cardiomediastinal contours are unch anged. IMPRESSION: No acute cardiopulmonary process.
[2023-04-21] MEDS: Mupirocin NASAL 2 APPL/1 GM TUBE NAS SCH ×2 (09:36→21:21)
[2023-04-21] MEDS: predniSONE 5 MG TAB PO SCH (09:37)
[2023-04-21] MEDS: ASPIRIN EC 81 MG TAB PO SCH (09:37)
[2023-04-21] MEDS: CLOPIDOGREL 75 MG TABLET PO SCH (09:37)
[2023-04-21] MEDS: VENLAFAXINE HCL 75 MG TABLET PO SCH (09:37)
[2023-04-21] MEDS: CEFTRIAXONE 1,000 MG in NA CHLORIDE 0.9% 50 ML IVPB SCH (09:40)
[2023-04-21] MEDS: DOXYCYCLINE 100 MG in NA CHLORIDE 0.9% 100 ML IVPB SCH (10:21)
[2023-04-21 10:31] LABS: Magnesium 1.8 mg/dL (1.6-2.4); Potassium 3.5 mEq/L (3.5-5.1); Thyroid Stimulating Hormone 0.321 uIU/mL (0.358-3.740)
[2023-04-21] MEDS: POTASSIUM 25 MEQ EFFERV TAB PO ONE ×2 (12:00→12:37)
[2023-04-21] MEDS ORDERED: NA CHLORIDE 0.9% 250 ML IV ONE (12:40)
--- NOTE | 2023-04-21 12:46 | P.PN ---
Subjective Date of Service: 04/21/23 Chief Complaint: NSTEMI No new events. She reports that she feels well. She remains on a heparin drip. She denies any chest pain, shortness of breath, or palpitations. Review of Systems 10-point ROS is otherwise unremarkable Physical Examination - Vital Signs Temperature: 97.4 F Blood Pressure: 99/53 Pulse: 102 Respirations: 16 Pulse Ox (%): 99 Assessment And Plan - Plan - Physical Exam General: Alert, In no apparent distress, Oriented x3 HEENT: Atraumatic, Mucous membr. moist/pink, Sclerae nonicteric Neck: JVD not distended Respiratory: Clear to auscultation bilaterally, Normal air movement Cardiovascular: No edema, Regular rate/rhythm, Other (audible mechanical valve click) Gastrointestinal: Normal bowel sounds, Soft, Non-distended, No tenderness Neurological: Normal speech, Normal affect # Non-ST Segment Elevation Myocardial Infarction # Chronic Compensated Systolic Congestive Heart Failure # History of Mechanical Aortic and Mitral Valve Replacements - Evaluation thus far: - EKG: without STEMI criteria, trend - Serial troponin: 53792.1 -> 17468.7 -> 10546.4 - Transthoracic echocardiogram = "1. mildly depressed left ventricular ejection fraction 40% with apical, anterior hypokinesis. 2. aortic valve mechanical prosthesis is functioning well. 3. mitral valve mechanical prosthesis is functioning well." - Management plan: - Consult Cardiology and spoke with Dr. Crespo - recommendations appreciated - S/P LHC on 04/19 with multivessel CAD s/p PCI - Dr. Crespo recommends aspirin, clopidogrel, and heparin drip for 72 hours and to re-assess her on 04/22/2023 - Continue aspirin, atrovastatin, clopidogrel, metoprolol, and heparin drip - Hold home warfarin and monitor INR - Consider adding CRISTINA-inhibitor/ARB as tolerated # Hyperthyroidism - TSH: 0.077 -> 0.321 - Free T4 1.75 ->1.24 - Asymptomatic, will monitor for now # Possible Community-Acquired Pneumonia - Evaluation thus far: - Does not meet sepsis criteria - Procalcitonin = < 0.05 - Chest x-ray = "patchy left perihilar and basilar airspace opacity, concerning for pneumonia." - Repeat chest x-ray (04/21) = "no acute cardiopulmonary process." - Management plan: - Switched ceftriaxone + azithromycin to cefdinir + doxycycline - today is day 4 of 5 - Consulted Respiratory Therapy - Supplemental oxygen to maintain SpO2 > 92% - Encouraged incentive spirometry # Systemic Lupus Erythematosus # Seizure Disorder # Gastroesophageal Reflux Disease - Reconcile home medications once verified Lanre Leary M.D.
[2023-04-21] MEDS: MEDIHONEY 44 ML TOPICAL TUBE TOP SCH (13:29)
--- NOTE | 2023-04-21 15:29 | PN ---
Date of Progress Note: 04/19/2023 Subjective: Seen by bedside. She continued to have chest pain on and off over night. Review of Systems: No nausea, vomiting, diarrhea, or abdominal pain. Positive chest pain. No dysuria, polyuria, or uri nary urgency. All other systems were reviewed, they were negative. Objective: Vital Signs: Reviewed. Head and Neck: Pupils are equal, reactive to light. Intact eye movements. No JVD. No cervical lym phadenopathy. Neck: Supple. Thyroid is not enlarged. Lungs: Clear to auscultation bilaterally. No rhonchi, rales, or crackles. No accessory muscle use. Heart: Regular rate and rhythm. No extra sounds. Abdomen: Soft, nontender. Bowel sounds positive. No organomegaly. No masses or hernia. No rigidi ty or rebound. Extremities: No edema, clubbing, or cyanosis. Intact pulses. Skin: No rash. No nodule. Neurologic: Alert, awake, and oriented x3. No acute focal deficits appreciated. Lymph Nodes: No cervical or axillary lymphadenopathy. Investigations: Labs were reviewed. Assessment/recommendations: 1.Non-ST elevation myocardial infarction. INR now is below 1.6. She is n.p.o. Plan is for coronar y angiogram and PCI as needed. 2.Systolic heart failure. Ejection fraction on echo is low due to coronary artery disease. Plan fo r revascularization today. Continue aspirin, Plavix, statin, and metoprolol. 3.Mechanical cardiac valve aortic and mitral. Keep the patient on IV heparin throughout the weekend and then plan to bridge with Coumadin to get INR back after the heart catheterization is done. SR/MODL Voice ID: [id number] Report ID: [id number]
--- NOTE | 2023-04-21 15:39 | PN ---
Date of Progress Note: 04/20/2023 Subjective: Seen by bedside, doing very well. Chest pain has completely resolved. Patient is asymp tomatic. Review of Systems: No chest pain, shortness of breath, orthopnea, cough. No nausea, vomiting, or diarrhea. No abdomina l pain. No dysuria, polyuria, or urinary urgency. No skin rash. All other systems reviewed, they w ere negative. She is status post PCI of the ostial and distal LAD. Objective: Vital signs: Reviewed. Head and Neck: Pupils are equal, reactive to light. Intact eye movements. No JVD. No cervical lym phadenopathy. Neck: Supple. Thyroid is not enlarged. Lungs: Clear to auscultation bilaterally. No rhonchi, wheezing or crackles. No accessory muscle us e. Heart: Regular rate and rhythm. No extra sounds. Abdomen: Soft, nontender. Bowel sounds positive. No organomegaly. No masses or hernia. No rigidi ty or rebound. Extremities: No edema clubbing, cyanosis, intact pulses. Skin: No rash. Neurologic: Alert, awake, and oriented x3. No acute focal deficits appreciated. Investigations: Labs reviewed. Assessment/recommendation: 1.Non-ST elevation myocardial infarction. Culprit was the left anterior descending, status post per cutaneous coronary intervention, doing well. She is asymptomatic. Continue aspirin, Plavix, and IV heparin. 2.Mechanical aortic and mitral valve. Restart Coumadin and keep IV heparin going until INR is thera peutic between 2 and 3. 3.Systolic heart failure. Continue metoprolol and attempt to increase the dose to minimize the heart rate. 4.Dyslipidemia. Continue statin. SR/MODL Voice ID: [id number] Report ID: [id number]
[2023-04-21] MEDS: WARFARIN SODIUM 1 MG TAB PO SCH (16:35)
[2023-04-21] MEDS: WARFARIN SODIUM 2.5 MG TAB PO SCH (16:36)
[2023-04-21] MEDS ORDERED: WARFARIN SODIUM 2.5 MG TAB PO SCH (17:00)
--- NOTE | 2023-04-21 19:22 | P.PN ---
Date of Service: 04/22/23 Subjective: Patient denies any new complaints. She is wanting to get some physical therapy to ambulate and strengthen her. Consult Physical therapy. Physical Exam: Vitals: Reviewed Gen: Alert, Oriented, NAD CV: regular rate & rhythm, no edema, audible mechanical valve click Pulm: Respirations are clear bilaterally Abd: soft, nontender, nondistended MSK: no joint tenderness Integumentary: No rashes Neuro: No focal deficits Problem List: 1. NSTEMI 2. CAD s/p PCI 3. Chronic Compensated Systolic CHF 4. History of Mechanical Aortic and Mitral Valve Replacements 5. Hyperthyroidism 6. Possible Community-Acquired Pneumonia 7. Systemic Lupus Erythematosus 8. Seizure Disorder 9. GERD PLAN: Echo findings with 42% ejection fraction with an apical and anterior hypokinesis. Mitral valve and aortic valve replacement are stable Cardiology consulted s/p LHC on 04/19 with multivessel CAD s/p PCI Cardiology recommends aspirin, clopidogrel, and heparin drip for 72 hours and to re-assess her on 04/22/2023 Continue aspirin, atrovastatin, clopidogrel, metoprolol, and heparin drip Hold home warfarin and monitor INR; repeat daily Continue with abx Encouraged incentive spirometry Confirm home medications, restart as appropriate
[2023-04-21] MEDS: ATORVASTATIN 40 MG TAB PO SCH (21:22)
[2023-04-21] MEDS: DOXYCYCLINE 100 MG CAP PO SCH (21:22)
[2023-04-21] MEDS: CEFDINIR 300 MG CAP PO SCH (21:23)
[2023-04-22] MEDS: HEPARIN/D5W 25,000 UNIT/500 ML BAG IV SCH (03:41)
[2023-04-22 05:16] LABS: Hematocrit 24.9 % (36.0-45.0); Lymphocytes % 23.3 % (15.3-44.8); MCV 78.7 fL (80-100); MPV 9.1 fL (7.6-11.3); Platelets 253 thou/uL (152-406); RBC Red Blood Cell Count 3.16 M/uL (3.86-4.86)
[2023-04-22 05:17] LABS: Protime INR 1.27
[2023-04-22 05:22] LABS: Potassium 3.5 mEq/L (3.5-5.1)
[2023-04-22] MEDS ORDERED: KCL 20 MEQ/100 mL IVPB 20 MEQ/100 ML BAG IV SCH (06:00)
[2023-04-22] MEDS: METOPROLOL TAR 25 MG TAB PO SCH ×2 (06:03→17:02)
[2023-04-22] MEDS: ASPIRIN EC 81 MG TAB PO SCH (08:00)
[2023-04-22] MEDS: VENLAFAXINE HCL 75 MG TABLET PO SCH (08:00)
[2023-04-22] MEDS: Mupirocin NASAL 2 APPL/1 GM TUBE NAS SCH ×2 (08:00→21:56)
[2023-04-22] MEDS: CLOPIDOGREL 75 MG TABLET PO SCH (08:00)
[2023-04-22] MEDS: CEFDINIR 300 MG CAP PO SCH ×2 (08:00→21:56)
[2023-04-22] MEDS: DOXYCYCLINE 100 MG CAP PO SCH ×2 (08:00→21:55)
[2023-04-22] MEDS: predniSONE 5 MG TAB PO SCH (08:01)
[2023-04-22] MEDS: MEDIHONEY 44 ML TOPICAL TUBE TOP SCH (08:01)
[2023-04-22] MEDS: WARFARIN SODIUM 1 MG TAB PO SCH (17:00)
[2023-04-22] MEDS: WARFARIN SODIUM 2.5 MG TAB PO SCH (17:03)
--- NOTE | 2023-04-22 19:10 | EKG ---
Test Date: 2023-04-20 Test Time: 01:04:21 Explosion Welder: MIREYA MEASUREMENT RESULTS: Intervals: Rate: 118 CO: 112 QRSD: 116 QT: 354 QTc: 496 [place]: P: CO: 112 QRS: -14 T: 83 INTERPRETIVE STATEMENTS: Sinus tachycardia Abnormal ECG Compared to ECG 04/17/2023 18:01:55 Myocardial infarct finding now present Sinus rhythm no longer present Possible ischemia no longer present Prolonged QT interval no longer present ST (T wave) deviation still present Electronically Signed On 04-22-23 19:06:31 CDT by Stuart Crespo
--- NOTE | 2023-04-22 21:34 | PN ---
Date of Progress Note: 04/22/2023 Subjective: Seen by bedside, doing clinically very well. No further chest pain. Review of Systems: No chest pain, shortness of breath, orthopnea, or cough. No nausea, vomiting, or diarrhea. All othe r systems were reviewed, they were negative. Objective: Vital Signs: Reviewed. Head and Neck: Pupils are equal, reactive to light. Intact eye movements. No JVD. No cervical lym phadenopathy. Neck is supple. Thyroid is not enlarged. Lungs: Clear to auscultation bilaterally. No rhonchi, wheezing or crackles. No accessory muscle us e. Heart: Regular rate and rhythm. No extra sounds. Abdomen: Soft, nontender. Bowel sounds positive. No organomegaly. No masses or hernia. No rigidi ty or rebound. Extremities: No edema, clubbing, or cyanosis. Intact pulses. Skin: No rash. No nodule. Neurologic: Alert, awake, and oriented x3. No acute focal deficits appreciated. Investigations: INR still about 1.26. Assessment And Recommendations: 1.Chh-DA-nizjekizn myocardial infarction, culprit was ostial LAD, status post successful PCI. Man nue aspirin and Plavix. 2.Mechanical aortic and mitral valve. Coumadin was restarted and once INR between 2 and 3 and then heparin can be stopped. In the interim, continue IV heparin. 3.Systolic heart failure due to the myocardial infarction. I recommend to increase the metoprolol t o 25 mg twice a day and further adjust accordingly. 4.Dyslipidemia. Continue statin. SR/MODL Voice ID: [id number] Report ID: [id number]
[2023-04-22] MEDS: ATORVASTATIN 40 MG TAB PO SCH (21:55)
[2023-04-23] MEDS: HEPARIN/D5W 25,000 UNIT/500 ML BAG IV SCH (05:14)
[2023-04-23 06:27] LABS: Potassium 3.3 mEq/L (3.5-5.1)
[2023-04-23] MEDS ORDERED: POTASSIUM CL SA 10 MEQ TAB PO ONE (08:10)
[2023-04-23] MEDS: METOPROLOL TAR 25 MG TAB PO SCH ×2 (08:18→17:02)
[2023-04-23] MEDS: CLOPIDOGREL 75 MG TABLET PO SCH (09:07)
[2023-04-23] MEDS: ASPIRIN EC 81 MG TAB PO SCH (09:53)
[2023-04-23] MEDS: VENLAFAXINE HCL 75 MG TABLET PO SCH (09:54)
[2023-04-23] MEDS: predniSONE 5 MG TAB PO SCH (09:54)
[2023-04-23] MEDS: Mupirocin NASAL 2 APPL/1 GM TUBE NAS SCH ×2 (09:55→21:07)
[2023-04-23] MEDS: MEDIHONEY 44 ML TOPICAL TUBE TOP SCH (11:00)
[2023-04-23] MEDS: WARFARIN SODIUM 1 MG TAB PO SCH (17:01)
[2023-04-23] MEDS: WARFARIN SODIUM 2.5 MG TAB PO SCH (17:01)
--- NOTE | 2023-04-23 18:19 | PN ---
Date of Progress Note: 04/23/2023 Subjective: Seen by bedside. Doing clinically well. No new complaints. No chest pain. Review of Systems: No chest pain, shortness of breath, orthopnea, or cough. No nausea, vomiting, or diarrhea. All othe r systems were reviewed, they were negative. Objective: Vital Signs: Reviewed. Head and Neck: Pupils are equal, reactive to light. Intact eye movements. No JVD. No cervical lym phadenopathy. Neck is supple. Thyroid is not enlarged. Lungs: Clear to auscultation bilaterally. No rhonchi, wheezing or crackles. No accessory muscle us e. Heart: Regular rate and rhythm. No extra sounds. Abdomen: Soft, nontender. Bowel sounds positive. No organomegaly. No masses or hernia. No rigidi ty or rebound. Extremities: No edema, clubbing, or cyanosis. Intact pulses. Skin: No rash. No nodule. Neurologic: Alert, awake, oriented x3. No acute focal deficits appreciated. Lymph Nodes: No cervical or axillary lymphadenopathy. Investigations: Labs were reviewed. Assessment And Recommendations: 1.Vhn-IZ-shpqvpmlb myocardial infarction, status post PCI of the LAD, doing very well. Continue josie l antiplatelet therapy. 2.Aortic and mitral mechanical valve. Continue IV heparin and p.o. Coumadin until INR is between 2 and 3. SR/MODL Voice ID: [id number] Report ID: [id number]
[2023-04-23 19:15] LABS: Absolute Lymphocytes (CBC) 0.7 K/uL (0.7-4.9); Hematocrit 26.8 % (36.0-45.0); Lymphocytes % 14.1 % (15.3-44.8); MCV 78.8 fL (80-100); MPV 9.1 fL (7.6-11.3); Platelets 289 thou/uL (152-406)
[2023-04-23 19:19] LABS: Protime INR 1.81
[2023-04-23] MEDS: ATORVASTATIN 40 MG TAB PO SCH (21:07)
--- NOTE | 2023-04-23 23:58 | P.PN ---
Date of Service: 04/23/23 Subjective: Patient work with physical therapy and patient has done really well. Patient is wanting to go home. INR is subtherapeutic at 1.8. If greater than 2 then we may be able to let patient go home. Optimally patient needs to be greater than 2.5. Physical Exam: Vitals: Reviewed Gen: Alert, Oriented, NAD CV: regular rate & rhythm, no edema, audible mechanical valve click Pulm: Respirations are clear bilaterally Abd: soft, nontender, nondistended MSK: no joint tenderness Integumentary: No rashes Neuro: No focal deficits Problem List: 1. NSTEMI 2. CAD s/p PCI 3. Chronic Compensated Systolic CHF 4. History of Mechanical Aortic and Mitral Valve Replacements 5. Hyperthyroidism 6. Possible Community-Acquired Pneumonia 7. Systemic Lupus Erythematosus 8. Seizure Disorder 9. GERD PLAN: -Echo findings with 42% ejection fraction with an apical and anterior hypokinesis. Mitral valve and aortic valve replacement are stable -Cardiology consulted -s/p C on 04/19 with multivessel CAD s/p PCI -Cardiology recommends aspirin, clopidogrel, and heparin drip for 72 hours and to re-assess her on 04/22/2023 -Continue aspirin, atrovastatin, clopidogrel, metoprolol, and heparin drip -Hold home warfarin and monitor INR; repeat daily -Continue with abx -Encouraged incentive spirometry -Confirm home medications, restart as appropriate
[2023-04-24] MEDS: METOPROLOL TAR 25 MG TAB PO SCH ×2 (06:08→17:07)
[2023-04-24 06:57] LABS: Albumin 2.6 g/dL (3.4-5.0); Bilirubin Total 0.3 mg/dL (0.2-1.0); Magnesium 1.7 mg/dL (1.6-2.4); Potassium 3.7 mEq/L (3.5-5.1); Protein, Total 6.6 g/dL (6.4-8.2)
[2023-04-24] MEDS: HEPARIN/D5W 25,000 UNIT/500 ML BAG IV SCH (07:35)
[2023-04-24 07:50] LABS: Protime INR 1.53
[2023-04-24 07:51] LABS: Absolute Lymphocytes (CBC) 1.5 K/uL (0.7-4.9); Hematocrit 29.5 % (36.0-45.0); Lymphocytes % 22.9 % (15.3-44.8); MCV 78.7 fL (80-100); Platelets 327 thou/uL (152-406); RBC Red Blood Cell Count 3.75 M/uL (3.86-4.86)
[2023-04-24] MEDS: MEDIHONEY 44 ML TOPICAL TUBE TOP SCH (09:40)
[2023-04-24] MEDS: VENLAFAXINE HCL 75 MG TABLET PO SCH (09:40)
[2023-04-24] MEDS: ASPIRIN EC 81 MG TAB PO SCH (09:40)
[2023-04-24] MEDS: Mupirocin NASAL 2 APPL/1 GM TUBE NAS SCH (09:41)
[2023-04-24] MEDS: CLOPIDOGREL 75 MG TABLET PO SCH (09:41)
[2023-04-24] MEDS: predniSONE 5 MG TAB PO SCH (09:41)
[2023-04-24] MEDS: WARFARIN SODIUM 1 MG TAB PO SCH (17:00)
[2023-04-24] MEDS: WARFARIN SODIUM 2.5 MG TAB PO SCH (17:07)
--- NOTE | 2023-04-24 19:07 | PN ---
Date of Progress Note: 04/24/2023 Subjective: Seen by bedside. Doing clinically well. Still not therapeutic on the Coumadin. Review of Systems: No chest pain, shortness of breath, orthopnea, cough. No nausea, vomiting, diarrhea. All other syst ems reviewed are negative. Physical Examination: Vital signs: Reviewed. Head and Neck: Pupils are equal, reactive to light. Intact eye movements. No JVD. No cervical lym phadenopathy. Neck is supple. Thyroid is not enlarged. Lungs: Clear to auscultation bilaterally. No rhonchi, wheezing, or crackles. No accessory muscle u se. Heart: Regular rate and rhythm. No extra sounds. Abdomen: Soft, nontender. Bowel sounds positive. No organomegaly. No masses or hernia. No rigidi ty or rebound. Extremities: No edema, clubbing, cyanosis. Intact pulses. Skin: No rash. Neurologic: Alert, awake, oriented x3. No acute focal deficits appreciated. Investigations: Labs reviewed. Assessment/recommendations: 1.Non-ST elevation myocardial infarction, status post percutaneous coronary intervention of ostial l eft anterior descending, doing very well. Continue dual antiplatelet therapy. 2.Mechanical, aortic, and mitral valves. Continue heparin and Coumadin until INR is therapeutic bet ween 2 and 3. 3.Dyslipidemia. Continue statin. Once INR is therapeutic, patient can be released to follow up with me in the office as an outpatient. /GERARDO Voice ID: [id number] Report ID: [id number]
[2023-04-24] MEDS ORDERED: POTASSIUM CL SA 10 MEQ TAB PO ONE (20:00)
[2023-04-24] MEDS: ATORVASTATIN 40 MG TAB PO SCH (21:21)
[2023-04-25] MEDS: METOPROLOL TAR 25 MG TAB PO SCH ×2 (05:13→17:08)
[2023-04-25 08:06] LABS: Protime INR 1.92
[2023-04-25] MEDS: predniSONE 5 MG TAB PO SCH (08:15)
[2023-04-25] MEDS: CLOPIDOGREL 75 MG TABLET PO SCH (08:15)
[2023-04-25] MEDS: VENLAFAXINE HCL 75 MG TABLET PO SCH (08:15)
[2023-04-25] MEDS: ASPIRIN EC 81 MG TAB PO SCH (08:15)
[2023-04-25] MEDS: MEDIHONEY 44 ML TOPICAL TUBE TOP SCH (08:15)
[2023-04-25] MEDS: HEPARIN/D5W 25,000 UNIT/500 ML BAG IV SCH (08:48)
[2023-04-25 10:53] VITALS: O2SAT 98
--- NOTE | 2023-04-25 14:51 | PN ---
Date of Progress Note: 04/25/2023 Subjective: Seen by bedside. No chest pain. INR is therapeutic. Review of Systems: No chest pain, shortness of breath, orthopnea, cough. No nausea, vomiting, diarrhea. All other syst ems reviewed and they were negative. Physical Examination: Vital Signs: Reviewed. Head and Neck: Pupils are equal, reactive to light. Intact eye movements. No JVD. No cervical lym phadenopathy. Neck is supple. Thyroid is not enlarged. Lungs: Clear to auscultation bilaterally. No rhonchi, wheezing, or crackles. No accessory muscle u se. Heart: Regular rate and rhythm. No extra sounds. Abdomen: Soft, nontender. Bowel sounds positive. No organomegaly. No masses or hernia. No rigidi ty or rebound. Extremities: No edema, clubbing, or cyanosis. Intact pulses. Skin: No rash. Neurologic: Alert, awake, oriented x3. No acute focal deficits appreciated. Investigations: BUN 19, creatinine 0.80, and INR is 1.92. Assessment And Recommendations: 1.Non-ST elevation myocardial infarction, status post successful PCI of the LAD, doing well. Contin ue aspirin and Plavix. 2.Mechanical aortic and mitral valve. Continue with Coumadin. Now, INR is therapeutic. She has an INR machine at home to continue Coumadin, which is her dose 3.5 mg used to be therapeutic on that an d follow up with me in the office in 1 week. The patient can be released from my perspective. 3.Systolic heart failure. It is mild and she is on beta-bill. Blood pressure will not allow fur ther adjustment of medications. I will follow this as an outpatient. 4.Dyslipidemia. Continue statin. From Cardiology standpoint, the patient can be released and follo w up as an outpatient. SR/MODL Voice ID: [id number] Report ID: [id number]
[2023-04-25 16:22] VITALS: BP 130/77; TEMP 97.4
[2023-04-25] MEDS: WARFARIN SODIUM 1 MG TAB PO SCH (17:00)
[2023-04-25] MEDS: WARFARIN SODIUM 2.5 MG TAB PO SCH (17:08)
[2023-04-25] MEDS ORDERED: ENOXAPARIN 60 MG/0.6 ML SQ ONE (17:14)
[2023-04-25] MEDS ORDERED: DOXEPIN HCL 25 MG CAP PO SCH (21:00)
--- NOTE | 2023-05-06 05:47 | P.PN ---
Date of Service: 04/24/23 Subjective: Patient's symptoms are stable. Patient is doing much better. Dr. Crespo wants patient's INR somewhat more therapeutic. Will go ahead and wait for INR repeat tomorrow. Physical Exam: Vitals: Reviewed Gen: Alert, Oriented, NAD CV: regular rate & rhythm, no edema, audible mechanical valve click Pulm: Respirations are clear bilaterally Abd: soft, nontender, nondistended MSK: no joint tenderness Integumentary: No rashes Neuro: No focal deficits Problem List: 1. NSTEMI 2. CAD s/p PCI 3. Chronic Compensated Systolic CHF 4. History of Mechanical Aortic and Mitral Valve Replacements 5. Hyperthyroidism 6. Possible Community-Acquired Pneumonia 7. Systemic Lupus Erythematosus 8. Seizure Disorder 9. GERD PLAN: -Echo findings with 42% ejection fraction with an apical and anterior hypokinesis. Mitral valve and aortic valve replacement are stable -Cardiology consulted -s/p LHC on 04/19 with multivessel CAD s/p PCI -Cardiology recommends aspirin, clopidogrel, and heparin drip for 72 hours and to re-assess her on 04/22/2023 -Continue aspirin, atrovastatin, clopidogrel, metoprolol, and heparin drip -Hold home warfarin and monitor INR; repeat daily -Continue with abx -Encouraged incentive spirometry -Confirm home medications, restart as appropriate
--- NOTE | 2023-05-06 05:49 | P.DS ---
Discharge Date: 04/25/23 Disposition: DC HOME/HOME HEALTH CARE Discharge Condition: GOOD Reason for Admission: NSTEMI Consultations: Cardiology Brief History of Present Illness: Pt is a 62-year-old female with history of PAD, GERD, lupus, seizure disorder, previous TIA with previous aortic/mitral valve replacements on warfarin presents emergency department chief complaint of chest pain. She reports that her chest pain began on Saturday, described as somebody kicking her in the chest with pain radiating to the back, she did have an episode of diaphoresis on Saturday as well. She reports her pain has been more mild than it was then but she still has persistent pain primarily in her upper back area. She was evaluated in the emergency department her EKG was without STEMI criteria her initial high- sensitivity troponin was 14,193.7 INR is 3.32 hemoglobin 10.6 medic at 32. ED physician discussed case with cardiology who recommends initiation of heparin drip, aspirin and plans on heart catheterization in the morning. Hospital Course: Patient has done well during hospital stay. Clinically, patient is much better. At this time, patient is stable for discharge home. Patient will follow-up with building materials sales attendant and PCP as an outpatient. patient will need INR repeated in 1 week. Patient states that she will check her INR at home as she has her own ability to check her labs. We want the INR to be between 2.5 and 3.5. Vital Signs/Physical Exam: Temp Pulse Resp BP Pulse Ox 97.4 F 101 H 16 130/77 99 04/25/23 16:00 04/25/23 16:00 04/25/23 16:00 04/25/23 16:00 04/25/23 16:00 General: Alert, In no apparent distress, Oriented x3 Laboratory Data at Discharge: WBC 6.60 thou/uL (4.3-10.9) 04/24/23 07:34 Hgb 9.7 g/dL (12.0-15.0) L D 04/24/23 07:34 Hct 29.5 % (36.0-45.0) L 04/24/23 07:34 Plt Count 327 thou/uL (152-406) 04/24/23 07:34 PT 21.9 SECONDS (9.2-12.8) H 04/25/23 06:50 INR 1.92 04/25/23 06:50 APTT 103.5 SECONDS (21.7-34.4) H 04/25/23 06:50 Sodium 138 mEq/L (136-145) 04/25/23 06:50 Potassium 4.0 mEq/L (3.5-5.1) 04/25/23 06:50 BUN 19 mg/dL (7-18) H 04/25/23 06:50 Creatinine 0.80 mg/dL (0.55-1.02) 04/25/23 06:50 Glucose 107 mg/dL (74-106) H 04/25/23 06:50 Magnesium 1.7 mg/dL (1.6-2.4) 04/24/23 06:15 Total Bilirubin 0.3 mg/dL (0.2-1.0) 04/24/23 06:15 AST 33 U/L (15-37) 04/24/23 06:15 ALT 21 U/L (13-56) 04/24/23 06:15 Alkaline Phosphatase 58 U/L (45-117) 04/24/23 06:15 Home Medications: Levothyroxine [Synthroid*] 150 mcg PO DAILY 11/11/19 Metoprolol Succinate [Toprol Xl*] 50 mg PO DAILY 11/11/19 Omeprazole [Prilosec] 40 mg PO DAILY 11/11/19 Venlafaxine HCl [Effexor*] 150 mg PO DAILY 11/11/19 Acyclovir 400 mg PO DAILY 11/01/20 Amitriptyline [Elavil*] 25 mg PO BID 11/01/20 Cyclobenzaprine [Flexeril*] 10 mg PO QID 11/01/20 predniSONE [Prednisone] 2.5 mg PO DAILY #7 tablet 05/31/21 Aspirin [Ecotrin 81 MG] 162 mg PO DAILY #60 tab 04/24/23 Atorvastatin Calcium [Lipitor] 40 mg PO BEDTIME #30 tab 04/24/23 Clopidogrel Bisulfate [Plavix] 75 mg PO DAILY #30 tab 04/24/23 Enoxaparin Sodium [Lovenox 60 MG INJ] 60 mg SQ BID #14 syr 04/24/23 Medihoney [Medihoney Woundcare Gel*] 1 appl TOP DAILY #1 tube 04/24/23 Metoprolol Tartrate [Lopressor*] 12.5 mg PO BID 6AM 6PM #30 tab 04/24/23 Warfarin Sodium [Coumadin*] 4 mg PO DAILY AT SUPPER #30 tab 04/24/23 New Medications: Warfarin Sodium [Coumadin*] 4 mg PO DAILY AT SUPPER #30 tab Aspirin [Ecotrin 81 MG] 162 mg PO DAILY #60 tab Atorvastatin Calcium [Lipitor] 40 mg PO BEDTIME #30 tab Metoprolol Tartrate [Lopressor*] 12.5 mg PO BID 6AM 6PM #30 tab Enoxaparin Sodium [Lovenox 60 MG INJ] 60 mg SQ BID #14 syr Medihoney [Medihoney Woundcare Gel*] 1 appl TOP DAILY #1 tube Clopidogrel Bisulfate [Plavix] 75 mg PO DAILY #30 tab Physician Discharge Instructions: -DC IV and DC home -Follow-up with PCP in 1 to 2 weeks -Follow-up with Cardiology in 1 to 2 weeks -Please call Dr. Monzon at [phone] if any questions regarding hospital stay -Please call nursing station at [phone] if any nursing or medication questions -Return to the emergency room if symptoms worsen Diet: AHA Activity: Fall precautions Followup: Ham MCKEON,Kayce Jensen DO [Primary Care Provider] - Stuart Crespo MD [ACTIVE - CAN ADMIT] - 1-2 Weeks (call to schedule an appointment) Time spent managing pt's care (in minutes): 35
== END 2023-04-25 17:45 | disposition home health service (06) | DRG 246 ==
LOC: ER 17:12 → ERHOLD 19:11 → 2ND 20:13
PROVIDERS: ADMIT Internal Medicine; ATTEND Hospitalist
PROC: 027035Z Dilation of Coronary Artery, One Artery with Two Drug-eluting Intraluminal Devices, Percutaneous Approach (ICD-10-PCS; principal; 2023-04-19)
PROC: 4A023N7 Measurement of Cardiac Sampling and Pressure, Left Heart, Percutaneous Approach (ICD-10-PCS; 2023-04-19)
PROC: B2111ZZ Fluoroscopy of Multiple Coronary Arteries using Low Osmolar Contrast (ICD-10-PCS; 2023-04-19)
DX: I21.4 Non-ST elevation (NSTEMI) myocardial infarction (principal); J18.9 Pneumonia, unspecified organism; I50.22 Chronic systolic (congestive) heart failure; M32.9 Systemic lupus erythematosus, unspecified; M19.90 Unspecified osteoarthritis, unspecified site; K21.9 Gastro-esophageal reflux disease without esophagitis; G40.909 Epilepsy, unspecified, not intractable, without status epilepticus; I25.10 Atherosclerotic heart disease of native coronary artery without angina pectoris; Z88.5 Allergy status to narcotic agent; Z95.2 Presence of prosthetic heart valve; Z60.2 Problems related to living alone; Z88.0 Allergy status to penicillin; Z79.82 Long term (current) use of aspirin; Z98.51 Tubal ligation status; Z79.01 Long term (current) use of anticoagulants; Z79.52 Long term (current) use of systemic steroids; Z86.73 Personal history of transient ischemic attack (TIA), and cerebral infarction without residual deficits; Z96.643 Presence of artificial hip joint, bilateral; Z91.048 Other nonmedicinal substance allergy status; Z89.422 Acquired absence of other left toe(s); Z96.651 Presence of right artificial knee joint; Z89.432 Acquired absence of left foot; Z79.899 Other long term (current) drug therapy; Z79.890 Hormone replacement therapy
CPT/HCPCS: 36415; 71045; 76937; 80048; 80053; 83735; 84145; 84439; 84443; 84484; 85025; 85347; 85610; 85730; 93005; 93306; 93454; 96365; 97110; 97116; 97161; 99285; C1725; C1760; C1893; C9600; G0269; J0461; J0696; J1644; J1650; J2001; J2250; J3010; J3480; J7040; J7050; J7512; Q9967

== ENCOUNTER 2023-05-13 11:35 | Inpatient (IN) | payer OTHER ==
--- OUTSIDE RECORDS SUMMARY | 2023-05-13 11:42 | XMS REPORT | Continuity of Care Document ---
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 AETNA (MEDICARE [id number] 2023 REPLACEMENT PPO) 00:00:00 [employer]ETNA MEDICARE HMO [id number] POS 00:00:00 Problems Condition Condition Condition [...] [facility] Center HYDROMOR Allergy Active N\\T\\V [facility] PHONE [facility] (BULK) [facility]: Medical 00 Center MORPHOLI Allergy Active N\\T\\V [facility] [...] Active "Plastic" [facility] Tape-Sophia ty to [address] icones adverse 00:00: Hospita reaction 00 l s to drug Aspirin Propensi Active Cardio Methodi ty to 10-[address] adverse 00:00: want pt Hospita reaction 00 to take l s to drug Hydromor Propensi Active Method i phone ty to 2 st adverse 00:00: Hospita reaction 00 l s to drug Meperidi Propensi Active Method i ne ty to 2 st adverse 00:00: Hospita reaction 00 l s to drug Methadon Propensi Active Method i e ty to [address] st adverse 00:00: Hospita reaction 00 l s to drug Morphine Propensi Active Shortness Of Methodi ty to Breath 2 st adverse 00:00: Hospita reaction 00 [...] Date Stop Date Source Maternal grandmother [facility] Social History Social Habit Start Date Stop Date Quantity Comments Source Sexual orientation [facility] Gender identity [facility] Alcohol intake 2020-08-19 2020-08-19 [facility] (finding) Tobacco use and 2019-01-08 2019-01-[address] [facility] [address] [facility] exposure 00:00:00 00:00:00 tobacco non-user [facility] Center Tobacco Comment 2019-01-08 2019-01-[address] 00:00:00 00:00:00 [facility] Cigarettes smoked 2019-01-08 2019-01-[address] [facility] current (pack per 00:00:00 00:00:00 Medical Center day) - Reported Cigarette 2019-01-08 2019-01-[address] [facility] pack-years 00:00:00 00:00:00 [facility] Center History of tobacco 2019-01-[address] [facility] use 00:00:00 [facility] Center History of Social 2016-04-19 2016-04-[address] function 00:00:00 00:00:00 [facility] Sex Assigned At [address] 00:00[facility]00 [facility]00 [facility] Center Smoking Status Start Date Stop Date Source Smokes tobacco daily 2019-01-08 00:00:[address] [facility] Occasional tobacco smoker 2017-02-08 00:00:[address] [facility] Medications Ordered Filled Start Stop Current [...] tablet 10 times Center daily . acyclovir 0 Yes 200mg Q.5D Take [address] (ZOVIRAX) 1-22 mg by [facility] 200 MG 18:01: mouth 2 Medical capsule 10 (two) Center times daily . ALPRAZolam Yes 1mg Take [address] (XANAX) 2 1-22 by mouth 3 Luke s MG tablet 18:01: (three) Medic al 10 times Center daily as needed for Sleep . gabapentin Yes 300mg Q.[id number] Take [address] (NEURONTIN) 1-22 [id number] mg by L ukes 300 MG 18:01: 3D mouth 3 Medical capsule 10 (three) Center times daily. cyanocobala Yes 1000ug Inject [facility] min 1-22 1,000 mcg [facility] (VITAMIN 18:01: intramuscu Med ical B-12) 1,000 10 larly Center mcg/mL every 30 injection (thirty) days. levothyroxi Yes 125ug Take [address] ne 1-22 mcg by [facility] (SYNTHROID, 18:01: mouth Medic al LEVOTHROID) 10 Every Center 125 MCG morning on tablet an empty stomach. predniSONE Yes 2.5mg QD Take 2.[address] (DELTASONE) 1-22 mg by [facility] 2.5 MG 18:01: mouth Medical tablet 10 daily. Grassflat metoprolol Yes 50mg QD Take 50 mg [...] 2 -22 by mouth 3 Luke s MG tablet 18:01: (three) Medic al 10 times Center daily as needed for Sleep . gabapentin Yes 300mg Q.[id number] Take [address] (NEURONTIN) 1-22 [id number] mg by L ukes 300 MG 18:01: 3D mouth 3 Medical capsule 10 (three) Center times daily. cyanocobala Yes 1000ug Inject [facility] min 1-22 1,000 mcg [facility] (VITAMIN 18:01: intramuscu Med ical B-12) 1,000 10 larly Center mcg/mL every 30 injection (thirty) days. levothyroxi Yes 125ug Take [address] ne 1-22 mcg by [facility] (SYNTHROID, 18:01: mouth Medic al LEVOTHROID) 10 Every Center 125 MCG morning on tablet an empty stomach. mupirocin Yes Apply [facility] (BACTROBAN) 1-19 daily as Luke s 2 % 00:00: instructed Medical ointment 00 . Center mupirocin Yes Apply [facility] (BACTROBAN) 1-19 daily as Luke s 2 % 00:00: instructed Medical ointment 00 . Center cyclobenzap Yes 10mg Q.[id number] Take 10 mg Methodi rine 7-10 [id number] mouth [address] (FLEXERIL) 17:14: 3D (three) Hosp sylwia 10 MG 27 times a l tablet day as needed for muscle spasms. MULTIVITAMI Yes Take by Met hodi N ORAL 7-[address] 17:14: Hospita 27 l ascorbic Yes 100mg QD Take 100 Meth michael acid, 7-[address] vitamin C, 17:14: mouth Hospit a (vitamin C) 27 daily. l 100 MG tablet amitriptyli Yes 75mg QD Take 75 mg Methodi ne (ELAVIL) 7-[address] 100 MG 17:14: nightly. Hospita tablet 27 l cyclobenzap Yes 10mg Q.20643435 Take 10 mg Methodi rine 7-[id number] mouth [address] (FLEXERIL) 17:14: 3D (three) Hosp sylwia 10 MG 27 times a l tablet day as needed for muscle spasms. MULTIVITAMI 2016-0 Yes Take by Met hodi N ORAL 7-[address] 17:14: Hospita 27 l ascorbic 2017- Yes 100mg QD Take 100 Meth michael [...] 50 MG 00:00: Hospita tablet 00 l gabapentin Yes 200mg QD 200 mg Meth michael (NEURONTIN) 6-[address] 400 mg 00:00: Hospita capsule 00 l topiramate Yes Methodi (TOPAMAX) 6-14 st 50 MG 00:00: Hospita tablet 00 l predniSONE 2016- Yes 2.5mg QD Take 2.5 Me thodi (DELTASONE) 6-[address] 2.5 mg 00:00: mouth Hospita tablet 00 daily. l predniSONE Yes 2.5mg QD Take 2.5 Me [facility] (DELTASONE) 6-[address] 2.5 mg 00:00: mouth Hospita tablet 00 daily. l mupirocin Yes Methodi (BACTROBAN) 12-25 st 2 % 00:00: Hospita ointment 00 l mupirocin Yes [facility]i (BACTROBAN) 12-25 st 2 % 00:00: Hospita ointment 00 l metoprolol Yes Methodi succinate 5- st XL 00:00: Hospita (TOPROL-XL) 00 l 50 mg 24 hr tablet metoprolol Yes Methodi succinate - st XL 00:00: Hospita (TOPROL-XL) 00 l 50 mg 24 hr tablet omeprazole Yes TAKE ONE Met hodi (PriLOSEC) 4-[address] 20 MG 00:00: MOUTH Hospita capsule 00 TWICE A l DAY omeprazole Yes TAKE ONE Met hodi (PriLOSEC) 4-[address] 20 MG 00:00: MOUTH Hospita capsule 00 TWICE A l DAY levothyroxi Yes TAKE ONE Me thodi ne 3-[address] (SYNTHROID, 00:00: MOUTH Hospi ta LEVOXYL) 00 DAILY l 125 mcg tablet levothyroxi Yes TAKE ONE Me thodi ne 3-[address] (SYNTHROID, 00:00: MOUTH Hospi ta LEVOXYL) 00 DAILY l 125 mcg tablet RESTASIS Yes 1[drp] Administer M ethodi 0.05 % 9-[address] ophthalmic 00:00: both eyes. H ospita emulsion 00 l RESTASIS Yes 1[drp] Administer M ethodi 0.05 % 9-[address] ophthalmic 00:00: both eyes. H ospita emulsion 00 l PROAIR HFA Yes 2{puff} Q6H 2 puffs M ethodi 90 6-[address] mcg/actuati 00:00: (six) Hospi ta on inhaler 00 hours as l needed. PROAIR HFA Yes 2{puff} Q6H 2 puffs M ethodi 90 6-[address] mcg/actuati 00:00: (six) Hospi ta on inhaler 00 hours as l needed. Immunizations Ordered Immunization Filled Date Status Comments Sour ce Name Immunization Name Pneumococcal 2016-04-19 Completed [facility] Polysaccharide 00:00:00 Hospital FLUZONE QUAD 2016-04-19 Completed [facility] 00:00:00 [facility] Influenza, 2015-04-05 Completed [facility] Quadrivalent 00:00:00 Hospital Pneumococcal 2015-04-05 Completed [facility] Polysaccharide 00:00:00 Hospital Influenza, Unknown Completed [facility] Quadrivalent Hospital Pneumococcal Unknown Completed [facility] Polysaccharide Hospital Pneumococcal Unknown Completed [facility] Polysaccharide Hospital FLUZONE QUAD Unknown Completed [facility] Vital Signs Vital Name Observation Time [...] colon Medical Ce nter (procedure) [code = 235235619] Future Scheduled 2029-01-09 Screening for malignant [facility] Test 00:00:00 neoplasm of colon Medical Ce nter (procedure) [code = 732947362] Future Scheduled 2029-01-09 Screening for malignant [facility] Test 00:00:00 neoplasm of colon Medical Ce nter (procedure) [code = 722990154] Future Scheduled 2029-01-09 Screening for malignant [facility] Test 00:00:00 neoplasm of colon Medical Ce nter (procedure) [code = 480858744] Future Scheduled 2023-04-05 Screening for malignant [facility] 17:17:24 neoplasm of colon Hospital (procedure) [code = 779539802] Future Scheduled 2023-04-05 Screening for malignant [facility] 17:17:24 neoplasm of colon Hospital (procedure) [code = 445849388] Future Scheduled 2023-04-05 Screening for malignant [facility] 17:17:24 neoplasm of colon Hospital (procedure) [code = 345677067] Future Scheduled 2023-04-05 COVID-19 VACCINE (#1) [facility] 17:17:24 [code = COVID-19 VACCINE Hos pital (#1)] Future Scheduled 2023-04-05 Screening for malignant [facility] 17:17:24 neoplasm of colon Hospital (procedure) [code = 092437147] Future Scheduled 2023-04-05 Screening for malignant [facility] 17:17:24 neoplasm of colon Hospital (procedure) [code = 159668475] Future Scheduled 2023-04-05 SHINGLES VACCINES (1 of [facility] 17:17:24 2) [code = SHINGLES Hospital VACCINES (1 of 2)] Future Scheduled 2023-04-05 BREAST CANCER SCREENING [facility] 17:17:24 [code = BREAST CANCER Hospit al SCREENING] Future Scheduled 2023-04-05 Screening for malignant [facility] 17:17:24 neoplasm of cervix Hospital (procedure) [code = 950800995] Future Scheduled 2023-04-05 INFLUENZA VACCINE (#1) M ethodist Test 17:17:24 [code = INFLUENZA VACCINE Ho spital (#1)] Future Scheduled 2023-04-05 Screening for malignant [facility] 17:17:24 neoplasm of colon Hospital (procedure) [code = 514611829] Future Scheduled 2023-04-05 Screening for malignant [facility] 17:17:24 neoplasm of colon Hospital (procedure) [code = 226509010] Future Scheduled 2023-04-05 Screening for malignant [facility] 17:17:24 neoplasm of colon Hospital (procedure) [code = 166952732] Future Scheduled 2023-04-05 COVID-19 VACCINE (#1) [facility] 17:17:24 [code = COVID-19 VACCINE Hos pital (#1)] Future Scheduled 2023-04-05 Screening for malignant [facility] 17:17:24 neoplasm of colon Hospital (procedure) [code = 517309020] Future Scheduled 2023-04-05 Screening for malignant [facility] 17:17:24 neoplasm of colon Hospital (procedure) [code = 652133060] Future Scheduled 2023-04-05 SHINGLES VACCINES (1 of [facility] 17:17:24 2) [code = SHINGLES Hospital VACCINES (1 of 2)] Future Scheduled 2023-04-05 BREAST CANCER SCREENING [facility] 17:17:24 [code = BREAST CANCER Hospit al SCREENING] Future Scheduled 2023-04-05 Screening for malignant [facility] 17:17:24 neoplasm of cervix Hospital (procedure) [code = 351821228] Future Scheduled 2023-04-05 INFLUENZA VACCINE (#1) M [facility]ist Test 17:17:24 [code = INFLUENZA VACCINE Ho spital (#1)] Future Scheduled 2023-04-05 Influenza Vaccine (#1) [facility] [code = Influenza Vaccine Me dical Center (#1)] Future Scheduled 2023-04-05 Influenza Vaccine (#1) [facility] 00:00[facility]00 [code = Influenza Vaccine Me dical Center (#1)] Future Scheduled 2022-08-[address] [facility] Test 00:00:00 (12+) [code = DEPRESSION Med ical Center SCREENING (12+)] Future Scheduled 2022-08-[address] [facility] Test 00:00:00 (12+) [code = DEPRESSION Med ical Center SCREENING (12+)] Future Scheduled 2021-08-10 Screening for malignant [facility] Test 00:00:00 neoplasm of colon Medical Ce nter (procedure) [code = 615560735] Future Scheduled 2021-08-[address] [facility] Test 00:00:00 Counseling and Screening Med ical Center (12+) [code = Tobacco Cessation Counseling and Screening (12+)] Future Scheduled 2021-08-10 Screening for malignant [facility] Test 00:00:00 neoplasm of colon Medical Ce nter (procedure) [code = 421947331] Future Scheduled 2021-08-[address] [facility] Test 00:00:00 Counseling and Screening [facility] (12+) [code = Tobacco Cessation Counseling and Screening (12+)] Future Scheduled 2019-08-06 MEDICARE ANNUAL WELLNESS [facility] Test 00:00:00 (YEAR 2 or FIRST YEAR if Med ica Center no IPPE) [code = MEDICARE ANNUAL WELLNESS (YEAR 2 or FIRST YEAR if no IPPE)] Future Scheduled 2019-08-06 MEDICARE ANNUAL WELLNESS [facility] Test 00:00:00 (YEAR 2 or FIRST YEAR if Med ica Center no IPPE) [code = MEDICARE ANNUAL WELLNESS (YEAR 2 or FIRST YEAR if no IPPE)] Future Scheduled 2018-10-21 Lipid panel (procedure) [facility] 00:00:00 [code = 77905416] Medical Ce nter Future Scheduled 2018-10-21 Lipid panel (procedure) [facility] 00:00:00 [code = 15071555] Medical Ce nter Future Scheduled 2017-04-19 Pneumococcal Vaccine: [facility] 00:00:00 0-64 Years (2 - PCV) Medical Center [code = Pneumococcal Vaccine: 0-64 Years (2 - PCV)] Future Scheduled 2017-04-19 Pneumococcal Vaccine: [facility] 00:00:00 0-64 Years (2 - PCV) Medical Center [code = Pneumococcal Vaccine: 0-64 Years (2 - PCV)] Future Scheduled 2009 SHINGLES VACCINES ([address] [facility] 00:00[facility]00 [facility] Future Scheduled 2009 SHINGLES VACCINES ([address] [facility] 00:00[facility]00 [facility] Future Scheduled 1980 Screening for malignant [facility] 00:00:00 neoplasm of cervix Medical C enter (procedure) [code = 700666848] Future Scheduled 1980 Screening for malignant [facility] 00:00:00 neoplasm of cervix Medical C enter (procedure) [code = 584983212] Future Scheduled 1978 DTAP/TDAP/TD VACCINES ([address] [facility] Test 00:00:00 - Tdap) [code = Medical Cent er DTAP/TDAP/TD VACCINES (1 - Tdap)] Future Scheduled 1978 DTAP/TDAP/TD VACCINES ([address] [facility] 00:00:00 - Tdap) [code = Medical Cent er DTAP/TDAP/TD VACCINES (1 - Tdap)] Future Scheduled 1977 HEPATITIS C [facility]CRE[facility]ING [facility] 00:00:00 [code = HEPATITIS C Medical Center SCREENING] Future Scheduled 1977 HEPATITIS C [facility]ING [facility] 00:00:00 [code = HEPATITIS C Medical Center SCREENING] Future Scheduled [address] [facility] 00:00:00 virus screening Medical Cent er (procedure) [code = 530623726] Future Scheduled [address] [facility] 00:00:00 virus screening Medical Cent er (procedure) [code = 651210931] Future Scheduled 1959 COVID-19 VACCINE (#1) [facility] 00:00:00 [code = COVID-19 VACCINE Med ical Center (#1)] Future Scheduled 1959 COVID-19 VACCINE (#1) [facility] 00:00:00 [code = COVID-19 VACCINE Med ical Center (#1)] Future Scheduled 1959 Screening for malignant [facility] 00:00:00 neoplasm of breast Medical C enter (procedure) [code = 027409157] Future Scheduled 1959 CT Colonography (combo) [facility] 00:00:00 [code = CT Colonography [facility] (combo)] Future Scheduled 1959 Screening for malignant [facility] 00:00:00 neoplasm of colon Medical Ce nter (procedure) [code = 509434934] Future Scheduled 1960 Sigmoidoscopy [code = [facility] Sigmoidoscopy] Medical Cente r Future Scheduled 1959 Screening for malignant [facility] 00:00:00 neoplasm of breast Medical C enter (procedure) [code = 853944013] Future Scheduled 1959 CT Colonography (combo) [facility] 00:00:00 [code = CT Colonography [facility] (combo)] Future Scheduled 1959 Screening for malignant [facility] 00:00:00 neoplasm of colon Medical Ce nter (procedure) [code = 698228335] Future Scheduled 1960 Sigmoidoscopy [code = [facility] 00:[facility]:00 Sigmoidoscopy] Medical Cente r Encounters Start End Encounter Admission Attending Care Care Encounter Source Date/Time Date/Time Type Type Clinicians Facility Department ID 2023-03-25 2023-03-25 Outpatient GC_SWHAOMC_ PRIV PRIV [id number] [facility] 00:00:00 00:00:00 Robert_Michelle [id number] Medica l 2020-08-08 2020-08-08 Emergency ER [facility] Emergency [id number] [facility] 22:10:00 22:10:00 Results Test Description Test Time Test Comments Results Result Comments Source VANCOMYCIN LEVEL, TROUGH 2020-08-26 11:37:00 Test Item Value Reference Range Interpretation Comme nts VANCOMYCIN TROUGH (BEAKER) (test code = 522) 15.8 ug/mL 10.0-20.0 Co Founder And Ceo ID - CAROLYNN CPROTHROMBIN [id number] 04:41:00 Test Item Value Reference Range Interpretation [...] for patients wiht mechanical heart valves.While on warfarin.[id number] 04:00:00 Test Item Value Reference Range Interpretation Comments MAGNESIUM (BEAKER) 2.0 mg/dL 1.6-2.6 Specimen slightly (test code = 627) hemolyzed Co Founder And Ceo ID - RISHI WBASIC METABOLIC [id number] 04:00:00 Test Item Value Reference Range Interpretation [...] S NOT APPLICABLE FOR DIALYSIS PATIEN TS. Co Founder And Ceo ID - RISHI [facility] (HEMOGRAM ONLY)2020-08-26 03:21:00 Test Item Value Reference [...] (BEAKER) (test code = 413) BASIC METABOLIC [id number] 08:10:00 Test Item Value Reference Range Interpretation [...] S NOT APPLICABLE FOR DIALYSIS PATIEN TS. Co Founder And Ceo ID - MIKE [id number] 08:10:00 Test Item Value Reference Range Interpretation Comments MAGNESIUM (BEAKER) (test code = 1.9 mg/dL 1.6-2.6 627) Co Founder And Ceo ID - MIKE MPROTHROMBIN [id number] 06:19:00 Test Item Value Reference Range Interpretation [...] (BEAKER) (test code = 413) VANCOMYCIN LEVEL, [id number] 10:41:00 Test Item Value Reference Range Interpretation Comments VANCOMYCIN TROUGH (BEAKER) (test 12.3 ug/mL 10.0-20.0 code = 522) Co Founder And Ceo ID - LIZZIE FBASIC METABOLIC [id number] 06:40:00 Test Item Value Reference Range Interpretation [...] S NOT APPLICABLE FOR DIALYSIS PATIEN TS. Co Founder And Ceo ID - MIKE [id number] 06:40:00 Test Item Value Reference Range Interpretation Comments MAGNESIUM (BEAKER) (test code = 1.8 mg/dL 1.6-2.6 627) Co Founder And Ceo ID - MIKE MPROTHROMBIN [id number] 05:59:00 Test Item Value Reference Range Interpretation [...] 0-0 (BEAKER) (test code = 413) BLOOD [id number] 13:00:00 Test Item Value Reference Range Interpretation Comments CULTURE (BEAKER) (test No growth in 5 days code = 1095) BLOOD [id number] 13:00:00 Test Item Value Reference Range Interpretation Comments CULTURE (BEAKER) (test No growth in 5 days code = 1095) BASIC METABOLIC [id number] 08:46:00 Test Item Value Reference Range Interpretation [...] S NOT APPLICABLE FOR DIALYSIS PATIEN TS. Co Founder And Ceo ID - MIKE [id number] 08:46:00 Test Item Value Reference Range Interpretation Comments MAGNESIUM (BEAKER) (test code = 1.8 mg/dL 1.6-2.6 627) Co Founder And Ceo ID - MIKE MBLOOD [id number] 08:32:00 Test Item Value Reference Range Interpretation [...] = 1123) positive cocci in clusters SARS-COV2/RT-PCR ([facility])2020-08-23 06:37:00 Test Item Value Reference Range Interpretation Comments SARS-COV2/RT-PCR (test Negative Not Detected, Negative, code = 4593945) See external report for linked test SARS-COV-2 PERFORMING LAB [facility] (test code = 5613774) Negative result for this test determines that [...] 564(g) of the Act.Fact Sheet for Healthcare Pro viders:https://www.[employer]/sites/default/files/product/documents/Fact_Sheet_H H_Fgutokduh_Yisn_WJDG-MfZ-6.pdfFact Sheet for Healthcare Patients:https://www.[employer]/sites/default/files/product/docum ents/Qqse_Sgpqs_Bqxnwudd_Hlxw_STJO-MwA-3.pdfPerforming Laboratory:[facility] [facility].[place], [place] [address]PTPZSWNDAKU TIME/INR 2020-08-23 06:23:00 Test Item Value Reference [...] = 413) RAD, CHEST, 1 VIEW, NON [id number] 14:12:00Reason for exam:->chest painShould this be performed at the bedside?->Yes [facility] 1960 Sex: [...] Moore Verified Date/Time: 08/22/2020 14:12:21 [facility] BASIC METABOLIC [id number] 07:19:00 Test Item Value Reference Range Interpretation [...] S NOT APPLICABLE FOR DIALYSIS PATIEN TS. Co Founder And Ceo ID - PIAYA [id number] 07:19:00 Test Item Value Reference Range Interpretation Comments MAGNESIUM (BEAKER) (test code = 1.7 mg/dL 1.6-2.6 627) Co Founder And Ceo ID - PIAYA LPROTHROMBIN [id number] 05:47:00 Test Item Value Reference Range Interpretation [...] = 413) RAD, CHEST, 1 VIEW, NON [id number] 10:44:00Reason for exam:->PICC LINE PLACEMENTShould this be performed at the bedside?->Yes [facility] : 1960 Sex: [...] MDReport Verified Date/Time: 08/21/2020 10:44:24 Reading Location: [address] Transitional Reading Room BASIC METABOLIC [id number] 06:32:00 Test Item Value Reference Range Interpretation [...] S NOT APPLICABLE FOR DIALYSIS PATIEN TS. Co Founder And Ceo ID - DHIRAJ [id number] 06:32:00 Test Item Value Reference Range Interpretation Comments MAGNESIUM (BEAKER) (test code = 1.7 mg/dL 1.6-2.6 627) Co Founder And Ceo ID - DHIRAJ LPROTHROMBIN [id number] 05:46:00 Test Item Value Reference Range Interpretation [...] 0-0 (BEAKER) (test code = 413) BLOOD [id number] 11:12:00 Test Item Value Reference Range Interpretation [...] gram 1123) positive cocci in clusters BLOOD [id number] 11:10:00 Test Item Value Reference Range Interpretation [...] bottles: gram 1123) positive cocci in clusters [id number] 06:49:00 Test Item Value Reference Range Interpretation Comments PARTIAL THROMBOPLASTIN TIME 66.1 seconds 22.5-36.0 H (BEAKER) (test code = 760) [id number] 05:54:00 Test Item Value Reference Range Interpretation Comments CORTISOL, TOTAL (BEAKER) (test code 1.3 ug/dL 3.7-19.4 L = 2755) Co Founder And Ceo ID - EDASIVANCOMYCIN LEVEL, [id number] 05:29:00 Test Item Value Reference Range Interpretation Comments VANCOMYCIN RANDOM (BEAKER) (test 11.5 ug/mL code = 523) Reference Range: No NormalsOperator ID - MIKE [id number] 04:51:00 Test Item Value Reference Range Interpretation Comments PARTIAL THROMBOPLASTIN TIME 171.9 seconds 22.5-36.0 HH (BEAKER) (test code = 760) While on warfarin.BASIC METABOLIC [id number] 04:25:00 Test Item Value Reference Range Interpretation Comments SODIUM (BEAKER) 139 meq/L 136-145 (test code = 381) POTASSIUM (BEAKER) 3.7 meq/L 3.5-5.1 (test code = 379) CHLORIDE (BEAKER) 107 meq/L 98-107 (test code = 382) CO2 (BEAKER) (test 28 meq/L - code = 355) BLOOD UREA NITROGEN 14 [...] S NOT APPLICABLE FOR DIALYSIS PATIEN TS. Co Founder And Ceo ID - EDASIPROTHROMBIN [id number] 04:17:00 Test Item Value Reference Range Interpretation [...] for patients wiht mechanical heart valves.While on warfarin.[id number] 04:11:00 Test Item Value Reference Range Interpretation Comments MAGNESIUM (BEAKER) (test code = 1.7 mg/dL 1.6-2.6 627) Co Founder And Ceo ID - EDASICBC (HEMOGRAM ONLY)2020-08-20 03:51:00 Test [...] WBC 0-0 (BEAKER) (test code = 413) [id number] 18:55:00 Test Item Value Reference Range Interpretation Comments PARTIAL THROMBOPLASTIN TIME 60.3 seconds 22.5-36.0 H (BEAKER) (test code = 760) [id number] 11:08:00 Test Item Value Reference Range Interpretation Comments MAGNESIUM (BEAKER) 1.7 mg/dL 1.6-2.6 Specimen slightly (test code = 627) hemolyzed Co Founder And Ceo ID - EDASIBASIC METABOLIC [id number] 11:08:00 Test Item Value Reference Range Interpretation [...] S NOT APPLICABLE FOR DIALYSIS PATIEN TS. Co Founder And Ceo ID - EDASIVANCOMYCIN LEVEL, [id number] 11:05:00 Test Item Value Reference Range Interpretation Comments VANCOMYCIN TROUGH (BEAKER) (test 27.4 ug/mL 10.0-20.0 H code = 522) Co Founder And Ceo ID - [id number] 11:05:00 Test Item Value Reference Range Interpretation Comments PARTIAL THROMBOPLASTIN TIME 62.3 seconds 22.5-36.0 H (BEAKER) (test code = 760) While on warfarin.PROTHROMBIN TIME/[id number] 11:04:00 Test Item Value Reference Range Interpretation [...] WBC 0-0 (BEAKER) (test code = 413) [id number] 22:03:00 Test Item Value Reference Range Interpretation Comments PARTIAL THROMBOPLASTIN TIME 73.4 seconds 22.5-36.0 H (BEAKER) (test code = 760) BASIC METABOLIC [id number] 12:50:00 Test Item Value Reference Range Interpretation [...] S NOT APPLICABLE FOR DIALYSIS PATIEN TS. Co Founder And Ceo ID - [id number] 12:50:00 Test Item Value Reference Range Interpretation Comments MAGNESIUM (BEAKER) (test code = 1.7 mg/dL 1.6-2.6 627) Co Founder And Ceo ID - AAHAMIDVANCOMYCIN LEVEL, [id number] 12:49:00 Test Item Value Reference Range Interpretation Comments VANCOMYCIN TROUGH (BEAKER) (test 15.6 ug/mL 10.0-20.0 code = 522) Co Founder And Ceo ID - [id number] 12:33:00 Test Item Value Reference Range Interpretation Comments PARTIAL THROMBOPLASTIN TIME 76.0 seconds 22.5-36.0 H (BEAKER) (test code = 760) PROTHROMBIN TIME/[id number] 07:04:00 Test Item Value Reference Range Interpretation [...] WBC 0-0 (BEAKER) (test code = 413) [id number] 01:47:00 Test Item Value Reference Range Interpretation Comments PARTIAL THROMBOPLASTIN TIME 37.7 seconds 22.5-36.0 H (BEAKER) (test code = 760) [id number] 22:54:00 Test Item Value Reference Range Interpretation [...] code = 413) URINALYSIS W/ REFLEX URINE [id number] 16:12:00 Test Item Value Reference Range Interpretation [...] = 1584) SOURCE(BEAKER) (test code = 2795) Co Founder And Ceo ID - [auto]Co Founder And Ceo ID - [id number] 14:59:00 Test Item Value Reference Range Interpretation Comments PARTIAL THROMBOPLASTIN TIME 85.2 seconds 22.5-36.0 H (BEAKER) (test code = 760) RAD, CHEST, 1 VIEW, NON [id number] 07:41:00Reason for exam:->feverShould this be performed at the bedside?->Yes [facility] 1960 Sex: FFINAL REPORT CLINICAL HISTORY: fever TECHNIQUE: 1 view of the chest. COMPARISON: 08/08/2020 IMPRESSION: There are no focal infiltrates or effusions. The cardiomediastinal silhouette is unchanged poststernotomy. Signed: Marie Lovell MDReport Verified Date/Time: 08/17/2020 07:41:21 Reading Location: [facility] Radiology Reading Room CBC (HEMOGRAM ONLY)2020-08-17 06:12:00 [...] 0-0 (BEAKER) (test code = 413) PROTHROMBIN TIME/[id number] 05:40:00 Test Item Value Reference Range Interpretation [...] wiht mechanical heart valves.While on warfarin.COMPREHENSIVE METABOLIC [id number] 00:20:00 Test Item Value Reference Range Interpretation [...] S NOT APPLICABLE FOR DIALYSIS PATIEN TS. Co Founder And Ceo ID - PIHE [id number] 00:02:00 Test Item Value Reference Range Interpretation Comments PARTIAL THROMBOPLASTIN TIME 93.3 seconds 22.5-36.0 H (BEAKER) (test code = 760) LACTIC ACID, [id number] 23:59:00 Test Item Value Reference Range Interpretation Comments LACTATE BLOOD VENOUS (2) (BEAKER) 1.55 mmol/L 0.50-2.20 (test code = 5122) Co Founder And Ceo ID - DHIRAJ LCBC W/PLT COUNT & AUTO [id number] 23:53:00 Test Item Value Reference Range Interpretation [...] 0-1 PERCENT (BEAKER) (test code = 2801) [id number] 17:15:00 Test Item Value Reference Range Interpretation Comments ACTIVATED CLOTTING TIME 241 sec : 74 -137 seconds, (BEAKER) (test code = Baseli ne: TESTED AT 441) [facility] [address] [place], [address]: Co Founder And Ceo/Techni sandee ID = [id number] for RANDELL LUIS RN, DOMENIC [id number] 11:16:00 Test Item Value Reference Range Interpretation Comments PARTIAL THROMBOPLASTIN TIME 80.2 seconds 22.5-36.0 H (BEAKER) (test code = 760) While on warfarin.PROTHROMBIN TIME/[id number] 11:15:00 Test Item Value Reference Range Interpretation [...] heart valves.While on warfarin.MR, SPINE, LUMBAR, WITHOUT [id number] 07:05:00Unlisted Reason for Exam - Click Yes and Enter Reason Below->No [facility] : 1960 Sex: [...] as a result. Signed: JR Alarcon Robert MDR[facility] Verified Date/Time: 08/16/2020 07:05:14 Reading Location: [facility] B1 C013 Neuro Reading Room [id number] 03:27:00 Test Item Value Reference Range Interpretation [...] 0-0 (BEAKER) (test code = 413) SARS-COV2/RT-PCR ([facility])2020-08-15 20:12:00 Test Item Value Reference Range Interpretation Comments SARS-COV2/RT-PCR (test Negative Not Detected, Negative, code = 9760498) See external report for linked test SARS-COV-2 PERFORMING LAB [facility] CHRIS (test code = 8095432) Negative result for this test determines that [...] of the Act.Fact Sheet for Healthcare Prov iders:https://www.[employer]/sites/default/files/product/documents/Fact_Sheet_HC _Llpglilfo_Ivbr_UDOR-UmI-1.pdfFact Sheet for Healthcare Patients:https://www.[employer]/sites/default/files/product/docume nts/Xrga_Ndjsv_Kddmpyun_Bhkj_OFSJ-ZrK-3.pdfPerforming Laboratory:[facility] [id number] 15:32:00 Test Item Value Reference Range Interpretation [...] WBC 0-0 (BEAKER) (test code = 413) [id number] 06:27:00 Test Item Value Reference Range Interpretation Comments PARTIAL THROMBOPLASTIN TIME 95.5 seconds 22.5-36.0 H (BEAKER) (test code = 760) While on warfarin.PROTHROMBIN TIME/[id number] 06:25:00 Test Item Value Reference Range Interpretation [...] WBC 0-0 (BEAKER) (test code = 413) [id number] 20:44:00 Test Item Value Reference Range Interpretation [...] WBC 0-0 (BEAKER) (test code = 413) [id number] 19:10:00 Test Item Value Reference Range Interpretation Comments PARTIAL THROMBOPLASTIN TIME 135.1 seconds 22.5-36.0 H (BEAKER) (test code = 760) [id number] 11:18:00 Test Item Value Reference Range Interpretation Comments PARTIAL THROMBOPLASTIN TIME 101.6 seconds 22.5-36.0 H (BEAKER) (test code = 760) [id number] 09:37:00 Test Item Value Reference Range Interpretation Comments PARTIAL THROMBOPLASTIN TIME > seconds 22.5-36.0 HH (BEAKER) (test code = 760) CT, SPINE, LUMBAR, [id number] 08:35:00Unlisted Reason for Exam - Click Yes and Enter Reason Below->YesUnlisted Reason for Exam->LLE pain evalaute for radiculopathy [facility] : 1960 Sex: [...] height loss is present, most conspicuous at L4-T6Piuteqjidxj images of the spinalcanal demonstrate no acute [...] and L5-S1 described above. Signed: Dodie Moore Verified Date/Time: 08/14/2020 08:35:08 Reading Location: [address] Neuro Reading Room PROTHROMBIN TIME/[id number] 06:56:00 Test Item Value Reference Range Interpretation [...] WBC 0-0 (BEAKER) (test code = 413) [id number] 23:23:00 Test Item Value Reference Range Interpretation Comments PARTIAL THROMBOPLASTIN TIME 48.5 seconds 22.5-36.0 H (BEAKER) (test code = 760) BASIC METABOLIC [id number] 23:04:00 Test Item Value Reference Range Interpretation [...] S NOT APPLICABLE FOR DIALYSIS PATIEN TS. Co Founder And Ceo ID - DBPOCT-GLUCOSE [id number] 18:16:00 Test Item Value Reference Range Interpretation Comments POC-GLUCOSE METER 90 mg/dL 70-110 : TESTED A T [facility] 6720 (BEAKER) (test code = [facility], 1538) [address]: Co Founder And Ceo/Techni sandee ID = [id number] for GERI BONNERIA POCT-GLUCOSE [id number] 12:53:00 Test Item Value Reference Range Interpretation Comments POC-GLUCOSE METER 129 mg/dL 70-110 H : TESTED A T [facility] 6720 (BEAKER) (test code = [facility], 1538) [address]: Co Founder And Ceo/Techni sandee ID = [id number] for GERI SPENCERIA [id number] 12:31:00 Test Item Value Reference Range Interpretation Comments PARTIAL THROMBOPLASTIN TIME 59.7 seconds 22.5-36.0 H (BEAKER) (test code = 760) POCT-GLUCOSE [id number] 08:55:00 Test Item Value Reference Range Interpretation Comments POC-GLUCOSE METER 125 mg/dL 70-110 H : TESTED A T [facility] 6720 (BEAKER) (test code = [place], 1538) [address]: Co Founder And Ceo/Techni sandee ID = [id number] for RAJENDRA SPENCER [id number] 06:51:00 Test Item Value Reference Range Interpretation Comments PARTIAL THROMBOPLASTIN TIME 81.5 seconds 22.5-36.0 H (BEAKER) (test code = 760) While on warfarin.PROTHROMBIN TIME/[id number] 06:49:00 Test Item Value Reference Range Interpretation [...] 0-0 (BEAKER) (test code = 413) POCT-GLUCOSE [id number] 21:47:00 Test Item Value Reference Range Interpretation Comments POC-GLUCOSE METER 106 mg/dL 70-110 : TESTED A T [facility] 6720 (BEAKER) (test code = [facility] [place], 1538) [address]: Co Founder And Ceo/Techni sandee ID = [id number] for Shayy Schumacher [id number] 21:23:00 Test Item Value Reference Range Interpretation Comments PARTIAL THROMBOPLASTIN TIME 39.9 seconds 22.5-36.0 H (BEAKER) (test code = 760) [id number] 09:33:00 Test Item Value Reference Range Interpretation Comments PARTIAL THROMBOPLASTIN TIME 68.3 seconds 22.5-36.0 H (BEAKER) (test code = 760) PROTHROMBIN TIME/[id number] 06:46:00 Test Item Value Reference Range Interpretation [...] WBC 0-0 (BEAKER) (test code = 413) [id number] 00:29:00 Test Item Value Reference Range Interpretation [...] WBC 0-0 (BEAKER) (test code = 413) [id number] 16:03:00 Test Item Value Reference Range Interpretation [...] 0-0 (BEAKER) (test code = 413) PLATELET [id number] 15:55:00 Test Item Value Reference Range Interpretation Comments PLATELET COUNT (BEAKER) (test 518 K/CU MM 150-450 H code = 756) HEMOGLOBIN AND [id number] 09:12:00 Test Item Value Reference Range Interpretation Comments HEMOGLOBIN (BEAKER) (test code = 9.6 GM/DL 11.2-15.7 L 410) HEMATOCRIT (BEAKER) (test code = 31.3 % 34.1-44.9 L 411) Co Founder And Ceo ID - [id number]-GLUCOSE [id number] 06:52:00 Test Item Value Reference Range Interpretation Comments POC-GLUCOSE METER 94 mg/dL 70-110 : TESTED A T [facility] 6720 (BEAKER) (test code = [facility], 1538) [address]: Co Founder And Ceo/Techni sandee ID = [id number] for JOHN MCKEON PROTHROMBIN TIME/[id number] 04:49:00 Test Item Value Reference Range Interpretation [...] Positive Negative A code = 618) POCT-GLUCOSE [id number] 18:07:00 Test Item Value Reference Range Interpretation Comments POC-GLUCOSE METER 98 mg/dL 70-110 : TESTED A T [facility] 6720 (BEAKER) (test code = [facility], 1538) [address]: Co Founder And Ceo/Techni sandee ID = [id number] for WALTER PERALTA MARK POCT-GLUCOSE [id number] 12:56:00 Test Item Value Reference Range Interpretation Comments POC-GLUCOSE METER 112 mg/dL 70-110 H : TESTED A T [facility] 6720 (BEAKER) (test code = [facility], 1538) [address]: Co Founder And Ceo/Techni sandee ID = [id number] for MARK DEY POCT-GLUCOSE [id number] 09:51:00 Test Item Value Reference Range Interpretation Comments POC-GLUCOSE METER 97 mg/dL 70-110 : [facility] (BEAKER[facility] (test code = [facility] [place], 1538) [address]: Co Founder And Ceo/Techni sandee ID = [id number] for MARK CARO BASIC METABOLIC [id number] 08:57:00 Test Item Value Reference Range Interpretation [...] S NOT APPLICABLE FOR DIALYSIS PATIEN TS. Co Founder And Ceo ID - ADMINPROTHROMBIN TIME/[id number] 08:55:00 Test Item Value Reference Range Interpretation [...] mechanical heart valves.CBC W/PLT COUNT & AUTO [id number] 08:45:00 Test Item Value Reference Range Interpretation [...] PERCENT (BEAKER) (test code = 2801) POCT-GLUCOSE [id number] 07:00:00 Test Item Value Reference Range Interpretation Comments POC-GLUCOSE METER 82 mg/dL 70-110 : TESTED A T [facility] 6720 (BEAKER) (test code = [facility], 1538) [address]: Co Founder And Ceo/Techni sandee ID = [id number] for FABY MOORE TROPONIN [id number] 13:30:00 Test Item Value Reference Range Interpretation [...] failure, acidosis, acute neurological disease, and persistent tachyarrhythmia.Co Founder And Ceo ID - LIZZIE FPOCT-GLUCOSE [id number] 12:43:00 Test Item Value Reference Range Interpretation Comments POC-GLUCOSE METER 100 mg/dL 70-110 : TESTED A T [facility] 6720 (BEAKER) (test code = [facility], 1538) [address]: Co Founder And Ceo/Techni sandee ID = [id number] for Benito Contreras [id number] 07:10:00 Test Item Value Reference Range Interpretation Comments FERRITIN (BEAKER) (test code = 222.98 ng/mL 5.00-275.00 361) Co Founder And Ceo ID - RISHI [id number] 05:42:00 Test Item Value Reference Range Interpretation Comments HAPTOGLOBIN (BEAKER) (test code = 91 mg/dL 14-258 366) Co Founder And Ceo ID - RISHI WSARS-COV2/INFLUENZA/RSV [id number] 05:13:00 Test Item Value Reference Range Interpretation Comments SARS-COV2/RT-PCR Negative Negative (test code = 5275032) INFLUENZA A RT-PCR Negative Negative (test code = 8488919) INFLUENZA B RT-PCR Negative Negative (test code = 0641352) RSV RT-PCR (test Negative Negative Performance of the Xpert code = 1359244) Xpress SARS- CoV-2/Flu/RSV test has only b [...] sooner.Fact She et for Healthcare Prov iders: https://www.[employer]/D Strapuments/Xpert% 20Xpress%2 1HPEM-ZpT-0-Flu -RSV/302-4 508%20Rev.%20B% 20HCP%20Fa ct%20Sheet.pdfF act Sheet for Healthcare Patients: https://www.[employer]/D ocuments/Xpert% 20Xpress%2 0SEMO-CtG-6-Flu -RSV/302-4 507%20Rev.%20B% 20Patient% 20Fact%20Sheet. pdf TROPONIN [id number] 04:58:00 Test Item Value Reference Range Interpretation [...] failure, acidosis, acute neurological disease, and persistent tachyarrhythmia.Co Founder And Ceo ID - RISHI WIRON, TIBC, % SAT. (WITHOUT FERRITIN)2020-08-09 04:55:00 Test Item Value Reference Range Interpretation Comments IRON (BEAKER) (test code = 547) 31.0 ug/dL 40.0-160.0 L TOTAL IRON BINDING CAPACITY 338 ug/dL 250-450 (BEAKER) (test code = 769) IRON % SATURATION (2) (BEAKER) 9 % 20-55 L (test code = 2590) Co Founder And Ceo ID - RISHI WBASIC METABOLIC [id number] 04:53:00 Test Item Value Reference Range Interpretation [...] S NOT APPLICABLE FOR DIALYSIS PATIEN TS. Co Founder And Ceo ID Dannie BLACKWELL WHEPATIC FUNCTION [id number] 04:53:00 Test Item Value Reference Range Interpretation [...] (test code = 19 U/L 6-55 347) Co Founder And Ceo ID Dannie BLACKWELL WPROTHROMBIN TIME/[id number] 04:46:00 Test Item Value Reference Range Interpretation [...] mechanical heart valves.CBC W/PLT COUNT & AUTO [id number] 04:45:00 Test Item Value Reference Range Interpretation [...] 0-1 PERCENT (BEAKER) (test code = 2801) PT/[id number] 04:45:00 Test Item Value Reference Range Interpretation [...] is 2.5-3.5 for patients wiht mechanical heart valves.[id number] 04:40:00 Test Item Value Reference Range Interpretation [...] (BEAKER) (test code = hemoly zed 635) Co Founder And Ceo ID - RISHI WRAD, CHEST, 1 VIEW, NON [id number] 23:34:00Reason for exam:->CHEST PAINShould this be performed at the bedside?->Yes [facility] 1960 Sex: FFINAL [...] 08/08/2020 23:34:25 CBC W/PLT COUNT & AUTO [id number] 23:31:00 Test Item Value Reference Range Interpretation [...] pg/mL 0-100 H (test code = 700) Co Founder And Ceo ID - DBTROPOPADMINI [id number] 23:29:00 Test Item Value Reference Range Interpretation [...] failure, acidosis, acute neurological disease, and persistent tachyarrhythmia.Co Founder And Ceo ID - DBBASIC METABOLIC PANEL 2020-08-08 23:24:00 [...] S NOT APPLICABLE FOR DIALYSIS PATIEN TS. Co Founder And Ceo ID - DBPROTHROMBIN TIME/[id number] 06:03:00 Test Item Value Reference Range Interpretation [...] valves.While on warfarin.CBC W/PLT COUNT & AUTO [id number] 06:20:00 Test Item Value Reference Range Interpretation [...] PERCENT (BEAKER) (test code = 2801) PROTHROMBIN TIME/[id number] 06:35:00 Test Item Value Reference Range Interpretation [...] for patients wiht mechanical heart valves.OCCULT BLOOD, [id number] 23:23:00 Test Item Value Reference Range Interpretation Comments FECAL OCCULT BLOOD (BEAKER) (test Negative Negative code = 618) PROTHROMBIN TIME/[id number] 07:00:00 Test Item Value Reference Range Interpretation [...] mechanical heart valves.CBC W/PLT COUNT & AUTO [id number] 06:52:00 Test Item Value Reference Range Interpretation [...] code = 2801) MYOCARD IMAGING, MULTI, PHARM, [id number] 16:05:00FINAL REPORT PROCEDURE: MYOCARDIAL PERFUSION SPECT IMAGING (Rest/Stress)CPT CODE: 52946 INDICATION: Elevated troponin CARDIOVASCULAR PROFILE:CAD History: NoneSymptoms: [...] no prior study for comparison. Signed: Brigido [facility] Verified Date/Time: 01/12/2019 16:05:30 Reading Location: [address] [id number] 08:57:00 Test Item Value Reference Range Interpretation Comments THYROID STIMULATING HORMONE 1.50 uIU/mL 0.35-4.94 (BEAKER) (test code = 772) [id number] 08:56:00 Test Item Value Reference Range Interpretation Comments T4 TOTAL (BEAKER) (test code = 895) 7.9 ug/dL 4.9-11.7 PROTHROMBIN TIME/[id number] 03:12:00 Test Item Value Reference Range Interpretation [...] (BEAKER) (test code = 413) BASIC METABOLIC [id number] 14:05:00 Test Item Value Reference Range Interpretation [...] NOT APPLICABLE FOR DIALYSIS PATIEN TS. TROPONIN [id number] 09:07:00 Test Item Value Reference Range Interpretation [...] acidosis, acute neurological disease, and persistent tachyarrhythmia.TROPONIN [id number] 06:51:00 Test Item Value Reference Range Interpretation [...] acute neurological disease, and persistent tachyarrhythmia.BASIC METABOLIC [id number] 06:51:00 Test Item Value Reference Range Interpretation [...] S NOT APPLICABLE FOR DIALYSIS PATIEN TS. [id number] 06:44:00 Test Item Value Reference Range Interpretation Comments MAGNESIUM (BEAKER) (test code = 1.8 mg/dL 1.6-2.6 627) PT/[id number] 04:26:00 Test Item Value Reference Range Interpretation [...] heparin sliding scalePer heparin sliding scaleHEMOGLOBIN AND [id number] 04:15:00 Test Item Value Reference Range Interpretation Comments HEMOGLOBIN (BEAKER) (test code = 9.5 GM/DL 11.2-15.7 L 410) HEMATOCRIT (BEAKER) (test code = 30.2 % 34.1-44.9 L 411) TROPONIN [id number] 22:28:00 Test Item Value Reference Range Interpretation [...] failure, acidosis, acute neurological disease, and persistent tachyarrhythmia.PT/[id number] 22:15:00 Test Item Value Reference Range Interpretation [...] scalePer heparin sliding scaleRAD, ABDOMEN/KUB, 1 VIEW [id number] 18:44:00Reason for exam:->vomitingFINAL REPORT Abdomen dated January 10, 2019 Comment:Abdomen was examined in the supine frontal position. Air is seen in the small and large bowel without dilatation to suggest mechanical obstruction or ileus. No mass, pathological calcification, or free air is present. Bilateral hip replacements are seen. Impression: No mechanical obstruction or ileus. Signed: Savannah Blanco Verified Date/Time: 01/10/2019 18:44:41 Reading Location: [facility] C013Y CT Body Reading Room [id number] 14:44:00 Test Item Value Reference Range Interpretation Comments MAGNESIUM (BEAKER) (test code = 1.6 mg/dL 1.6-2.6 627) BASIC METABOLIC [id number] 14:44:00 Test Item Value Reference Range Interpretation [...] NOT APPLICABLE FOR DIALYSIS PATIEN TS. TROPONIN [id number] 14:44:00 Test Item Value Reference Range Interpretation [...] H PERCENT (BEAKER) (test code = 2801) [id number] 13:25:00 Test Item Value Reference Range Interpretation Comments AMYLASE (BEAKER) (test code = 349) 29 U/L 25-125 [id number] 13:25:00 Test Item Value Reference Range Interpretation Comments LIPASE (BEAKER) (test code = 749) 16 U/L 8-78 [id number] 13:24:00 Test Item Value Reference Range Interpretation Comments PARTIAL THROMBOPLASTIN TIME 41.1 seconds 22.5-36.0 H (BEAKER) (test code = 760) 6 hours after starting heparin infusion and as indicated per sliding scale HEMOGLOBIN AND [id number] 13:10:00 Test Item Value Reference Range Interpretation Comments HEMOGLOBIN (BEAKER) (test code = 9.3 GM/DL 11.2-15.7 L 410) HEMATOCRIT (BEAKER) (test code = 30.0 % 34.1-44.9 L 411) U/S, ABDOMINAL, [id number] 12:16:00Abdomen limited area? Add comment if clarification [...] MDReport Verified Date/Time: 01/10/2019 12:16:23 Reading Location: [address] Consult Reading Room PT/[id number] 20:52:00 Test Item Value Reference Range Interpretation [...] for patients wiht mechanical heart valves.HEMOGLOBIN AND [id number] 16:23:00 Test Item Value Reference Range Interpretation Comments HEMOGLOBIN (BEAKER) (test code = 9.4 GM/DL 11.2-15.7 L 410) HEMATOCRIT (BEAKER) (test code = 29.9 % 34.1-44.9 L 411) PT/[id number] 07:42:00 Test Item Value Reference Range Interpretation [...] is 2.5-3.5 for patients wiht mechanical heart valves.[id number] 03:41:00 Test Item Value Reference Range Interpretation Comments MAGNESIUM (BEAKER) (test code = 1.7 mg/dL 1.6-2.6 627) BASIC METABOLIC [id number] 03:41:00 Test Item Value Reference Range Interpretation [...] NOT APPLICABLE FOR DIALYSIS PATIEN TS. PROTHROMBIN TIME/[id number] 03:35:00 Test Item Value Reference Range Interpretation [...] for patients wiht mechanical heart valves.HEMOGLOBIN AND [id number] 03:21:00 Test Item Value Reference Range Interpretation Comments HEMOGLOBIN (BEAKER) (test code = 8.8 GM/DL 11.2-15.7 L 410) HEMATOCRIT (BEAKER) (test code = 27.9 % 34.1-44.9 L 411) PT/[id number] 23:57:00 Test Item Value Reference Range Interpretation [...] is 2.5-3.5 for patients wiht mechanical heart valves.PT/[id number] 22:20:00 Test Item Value Reference Range Interpretation [...] is on agartrobanPatient is on agartrobanHEMOGLOBIN AND [id number] 22:08:00 Test Item Value Reference Range Interpretation Comments HEMOGLOBIN (BEAKER) (test code = 9.6 GM/DL 11.2-15.7 L 410) HEMATOCRIT (BEAKER) (test code = 30.5 % 34.1-44.9 L 411) HEMOGLOBIN AND [id number] 16:25:00 Test Item Value Reference Range Interpretation [...] WBC 0-0 (BEAKER) (test code = 413) [id number] 15:07:00 Test Item Value Reference Range Interpretation Comments PARTIAL THROMBOPLASTIN TIME 59.8 seconds 22.5-36.0 H (BEAKER) (test code = 760) PROTHROMBIN TIME/[id number] 14:32:00 Test Item Value Reference Range Interpretation [...] pg/mL 0-100 H (test code = 700) [id number] 12:34:00 Test Item Value Reference Range Interpretation Comments POTASSIUM (BEAKER) (test code = 3.9 meq/L 3.5-5.1 379) [id number] 12:34:00 Test Item Value Reference Range Interpretation Comments MAGNESIUM (BEAKER) (test code = 2.0 mg/dL 1.6-2.6 627) [id number] 11:33:00 Test Item Value Reference Range Interpretation Comments PROCALCITONIN (BEAKER) (test code 0.05 ng/mL <0.05 H = 3036) SEPSIS RISK (ng/mL)Low: 0.05-0.50Intermediate: 0.51-2.00High: >=2.01LACTIC ACID, [id number] 10:31:00 Test Item Value Reference Range Interpretation Comments LACTATE BLOOD VENOUS (2) (BEAKER) 0.7 mmol/L 0.5-2.2 (test code = 2872) HEMOGLOBIN AND [id number] 10:10:00 Test Item Value Reference Range Interpretation Comments HEMOGLOBIN (BEAKER) (test code = 8.3 GM/DL 11.2-15.7 L 410) HEMATOCRIT (BEAKER) (test code = 26.2 % 34.1-44.9 L 411) BASIC METABOLIC [id number] 08:27:00 Test Item Value Reference Range Interpretation [...] PATIEN TS. RAD, CHEST, 1 VIEW, NON [id number] 08:17:00Reason for exam:->pulmonary edemaShould this be performed [...] vascular congestion and improved inspiratory effort.Signed: Shobha Wilks MDReport Verified Date/Time: 01/08/2019 08:17:31 Reading Location: [facility] Reading Room [id number] 08:12:00 Test Item Value Reference Range Interpretation Comments MAGNESIUM (BEAKER) (test code = 2.0 mg/dL 1.6-2.6 627) [id number] 07:14:00 Test Item Value Reference Range Interpretation [...] L (test code = 2590) HEMOGLOBIN AND [id number] 06:25:00 Test Item Value Reference Range Interpretation [...] = 1414) RAD, CHEST, 1 VIEW, NON [id number] 23:31:00Reason for exam:- >DyspneaShould this be performed [...] MDReport Verified Date/Time: 01/07/2019 23:31:03 Reading Location: [address] Reading Room COMPREHENSIVE METABOLIC [id number] 22:56:00 Test Item Value Reference Range Interpretation [...] S NOT APPLICABLE FOR DIALYSIS PATIEN TS. [id number] 22:51:00 Test Item Value Reference Range Interpretation Comments MAGNESIUM (BEAKER) (test code = 1.3 mg/dL 1.6-2.6 L 627) [id number] 22:45:00 Test Item Value Reference Range Interpretation Comments FIBRINOGEN LEVEL (BEAKER) (test 509 mg/dl 225-434 H code = 658) PROTHROMBIN TIME/[id number] 22:09:00 Test Item Value Reference Range Interpretation [...] mechanical heart valves.CBC W/PLT COUNT & AUTO [id number] 22:05:00 Test Item Value Reference Range Interpretation [...] % 0-1 PERCENT (BEAKER) (test code = 2807)
[2023-05-13 12:28] LABS: Absolute Lymphocytes (CBC) 1.3 K/uL (0.7-4.9); Hematocrit 20.9 % (36.0-45.0); Lymphocytes % 19.6 % (15.3-44.8); MCV 77.6 fL (80-100); MPV 8.8 fL (7.6-11.3); Platelets 264 thou/uL (152-406)
[2023-05-13 12:38] LABS: Protime INR 5.64
--- NOTE | 2023-05-13 12:41 | RAD REPORT ---
EXAM DESCRIPTION: RAD - Chest Single View - 05/13/2023 12:36 pm CLINICAL HISTORY: DYSPNEA Chest pain. COMPARISON: Chest Single View dated 04/21/2023; Chest Single View dated 04/17/2023; Chest Single View dated 05/27/2021; Chest Single View dated 05/09/2021 FINDINGS: Portable technique limits examination quality. The lungs are grossly clear. The heart is normal in size. Sternotomy wires noted. No displaced fractu res. IMPRESSION: No acute intrathoracic process suspected.
[2023-05-13 12:48] LABS: Potassium 3.5 mEq/L (3.5-5.1)
[2023-05-13 12:49] LABS: Magnesium 1.9 mg/dL (1.6-2.4)
--- NOTE | 2023-05-13 13:01 | ER ---
Nurse's Notes [facility] Name: Kim Aldana Age: 62 yrs Sex: Female : 1960 Arrival Date: 05/13/2023 Time: 11:35 Bed 7 Private MD: Diagnosis: Anemia, unspecified;Weakness;Supratherapeutic INR Presentation: 05/13 11:37 Chief complaint: EMS states: home health nurse called stating that Dr Crespo took her ko1 off of her Lisinopril and Metoprolol last Saturday, now she is having high heart rates and low blood pressures with any movement or exertion. Coronavirus screen: At this time, the client does not indicate any symptoms associated with coronavirus-19. Ebola Screen: No symptoms or risks identified at this time. Initial Sepsis Screen: Does the patient meet any 2 criteria? No. Patient's initial sepsis screen is negative. Does the patient have a suspected source of infection? No. Patient's initial sepsis screen is negative. Risk Assessment: Do you want to hurt yourself or someone else? Patient reports no desire to harm self or others. Onset of symptoms was May 13, 2023. Care prior to arrival: Oxygen administered. via nasal cannula. 11:37 Method Of Arrival: EMS: [facility] ko1 11:37 Acuity: CABRERA 3 ko1 Triage Assessment: 11:41 General: Appears in no apparent distress. comfortable, Behavior is cooperative, ko1 appropriate for age, anxious. Pain: Denies pain. Historical: - Allergies: 11:41 Aspirin; ko1 11:41 Compazine; ko1 11:41 Methadone; ko1 11:41 Morphine; ko1 11:41 Neurontin; ko1 11:41 PENICILLINS; ko1 11:41 Phenergan; ko1 11:41 plastic tape; ko1 11:41 Suboxone; ko1 - PMHx: 11:41 arterial insuficiency; Back pain; chest pain; Chronic pain; cerebritis; dejenteritive ko1 joint disease; Dyspepsia; esophageal reflux; fatigue; hypersomnia; lumbar radiculitis; Lupus; menopause; Panic Attacks; pulmonary edema; Seizures; Tachycardia; TIA; osteomyelitis; venous insufficiency; - PSHx: 11:41 bowel resection; breast reduction bilateral; hip replacement bilateral; Mitral and ko1 Aortic Valve replacement; right total knee; - Immunization history:: Adult Immunizations up to date. - Social history:: Smoking status: Patient/guardian denies using tobacco. - Family history:: not pertinent. - Hospitalizations: : The patient was recently seen at [facility]. Screenin:08 [facility] ED Fall Risk Assessment (Adult) History of falling in the last 3 months, kc6 including since admission No falls in past 3 months (0 pts) Confusion or Disorientation No (0 pts) Intoxicated or Sedated No (0 pts) Impaired Gait No (0 pts) Mobility Assist Device Used No (0 pt) Altered Elimination No (0 pt) Score/Fall Risk Level 0 - 2 = Low Risk. Abuse screen: Denies threats or abuse. Denies injuries from another. Nutritional screening: No deficits noted. Tuberculosis screening: No symptoms or risk factors identified. Assessment: 11:41 Reassessment: please see triage assessment. kc6 11:45 GI: Abdomen is flat, non-distended, Bowel sounds present X 4 quads. Abd is soft and non kc6 tender X 4 quads. Patient currently denies bloody stool, diarrhea, hemorrhoids, nausea, rectal bleeding, vomiting. 12:10 Reassessment: Selina RN at bedside attempted to start an IV and collect labs. pt kc6 reports requiring a midline last visit here. 12:41 Reassessment: Patient appears in no apparent distress at this time. No changes from kc6 previously documented assessment. Patient and/or family updated on plan of care and expected duration. Pain level reassessed. Patient is alert, oriented x 3, equal unlabored respirations, skin warm/dry/pink. 13:41 Reassessment: Patient appears in no apparent distress at this time. No changes from kc6 previously documented assessment. Patient and/or family updated on plan of care and expected duration. Pain level reassessed. Patient is alert, oriented x 3, equal unlabored respirations, skin warm/dry/pink. 14:41 Reassessment: Patient appears in no apparent distress at this time. No changes from kc6 previously documented assessment. Patient and/or family updated on plan of care and expected duration. Pain level reassessed. Patient is alert, oriented x 3, equal unlabored respirations, skin warm/dry/pink. 15:41 Reassessment: Patient appears in no apparent distress at this time. No changes from kc6 previously documented assessment. Patient and/or family updated on plan of care and expected duration. Pain level reassessed. Patient is alert, oriented x 3, equal unlabored respirations, skin warm/dry/pink. 16:36 Reassessment: Patient appears in no apparent distress at this time. No changes from kc6 previously documented assessment. Patient and/or family updated on plan of care and expected duration. Pain level reassessed. Patient is alert, oriented x 3, equal unlabored respirations, skin warm/dry/pink. 17:23 Reassessment: Patient appears in no apparent distress at this time. No changes from kc6 previously documented assessment. Patient and/or family updated on plan of care and expected duration. Pain level reassessed. Patient is alert, oriented x 3, equal unlabored respirations, skin warm/dry/pink. please see [facility] for further charting. per Dr. Lafleur, obtain additional labs prior to blood transfusion. 19:20 Reassessment: Patient appears in no apparent distress at this time. Patient and/or jb4 family updated on plan of care and expected duration. Pain level reassessed. Patient is alert, oriented x 3, equal unlabored respirations, skin warm/dry/pink. 21:17 Reassessment: PRBC COMPLETED. ADMIT IN PROCESS. bp Vital Signs: 11:37 BP 102 / 73; Pulse 105; Resp 16; Temp 97; Pulse Ox 100% on 2 lpm NC; ko1 12:59 BP 113 / 73; Pulse 106; Resp 16 S; Pulse Ox 100% on 2 lpm NC; kc6 14:26 BP 110 / 68; Pulse 108; Resp 19 S; Pulse Ox 94% on 2 lpm NC; kc6 16:36 BP 107 / 56; Pulse 67; Resp 18 S; Pulse Ox 100% on 2 lpm NC; kc6 17:24 BP 108 / 59; Pulse 107; Resp 19 S; Pulse Ox 100% on 2 lpm NC; kc6 18:33 BP 105 / 53; Pulse 116; Resp 16; Pulse Ox 100% ; ko1 19:15 BP 106 / 59; Pulse 106; Resp 19; Pulse Ox 100% on 2 lpm NC; jb4 19:45 BP 98 / 61; Pulse 103; Resp 19; Temp 98.8; Pulse Ox 100% on 2 lpm NC; jb4 21:16 BP 112 / 46; Pulse 105; Resp 16; Temp 98.9; Pulse Ox 100% ; bp ED Course: 11:37 Patient arrived in ED. ko1 11:39 Masoud Casey MD is Attending Physician. rn 11:41 Triage completed. ko1 11:41 Arm band placed on right wrist. Patient placed in an exam room, on a stretcher, on ko1 oxygen, on engine monitor, on pulse oximetry, Patient notified of wait time. 12:00 Rebecca Hopson, RN is Primary Nurse. kc6 12:08 Missed attempt(s): 22 gauge in right forearm. Oxygen administration via nasal cannula \T\ kc6 2L/min. 12:09 Patient has correct armband on for positive identification. Bed in low position. Call kc6 light in reach. Side rails up X2. Client placed on continuous cardiac and pulse oximetry monitoring. NIBP monitoring applied. equipment monitor phototypesetting on. 12:38 XRAY Chest (1 view) In Process Unspecified. EDMS 12:52 Inserted saline lock: 24 gauge in right wrist, using aseptic technique. Blood collected.iw 12:59 Lanre Leary MD is Hospitalizing Provider. rn 17:24 Provided Education on: Blood Transfusion. kc6 17:24 No provider procedures requiring assistance completed. Patient admitted, IV remains in kc6 place. Administered Medications: 13:23 Drug: Phytonadione IM 5 mg IM once Route: IM; Site: right deltoid; kc6 14:26 Follow up: Response: No adverse reaction [facility] 13:23 Drug: Pantoprazole IVP 40 mg IVP once Route: IVP; Site: right wrist; kc6 14:26 Follow up: Response: No adverse reaction [facility] 13:23 Drug: Pantoprazole IV 8 mg/hr IV at 25 ml/hr continuous; (Standard dilution is 80 mg in kc6 250 mL NS) Route: IV; Rate: 25 ml/hr; Site: right wrist; 17:25 Follow up: Response: No adverse reaction; IV Status: Infusion continued upon admission; kc IV Intake: 250ml 13:57 Drug: Ondansetron IVP 4 mg IVP once; over 2 minutes Route: IVP; Site: right wrist; kc6 14:26 Follow up: Response: No adverse reaction; Nausea is decreased kc6 Medication: 17:24 VIS not applicable for this client. kc6 Intake: 17:25 IV: 250ml; Total: 250ml. kc6 Outcome: 13:00 Decision to Hospitalize by Provider. rn 17:24 Admitted to ER Hold. Please see [facility] for further documentation. kc6 17:24 Condition: stable 17:24 Instructed on the need for admit, 22:13 Patient left the ED. jb4 Signatures: Dispatcher [employer] EDSelina Portillo, RN RN Masoud Juels MD MD rn Bryson, James, RN RN jb4 Al Wilkinson RN RN Rebecca Mistry RN RN kc6 Helena Teixeira, RN RN ko1 Corrections: (The following items were deleted from the chart) 19:58 19:15 BP 106 / 59; Pulse 106bpm; Resp 19bpm; Pulse Ox 100% RA; jb4 jb4
--- NOTE | 2023-05-13 13:01 | EDPHYS ---
Physician Documentation [facility] Name: Kim Aldana Age: 62 yrs Sex: Female : 1960 Arrival Date: 05/13/2023 Time: 11:35 Bed 7 Private MD: ED Physician Masoud Casey HPI: 05/13 11:46 This 62 yrs old Female presents to ER via EMS with complaints of sob. rn 11:46 The patient has shortness of breath with light activity, during heavy activity. Onset: rn The symptoms/episode began/occurred 1 week(s) ago. Duration: The symptoms are intermittent. The patient's shortness of breath is aggravated by exertion, light activity, talking, is alleviated by rest. Severity of symptoms: At their worst the symptoms were moderate in the emergency department the symptoms are unchanged. The patient has experienced similar episodes in the past. The patient has been recently seen by a physician:. Patient reports had heart attack with 2 stents last month, has not felt right since then but over the last week increased dyspnea with exertion or talking or very minimal exertion. Seen by PCP and told her to get back on her metoprolol but does not know why. Then followed up with Dr. Crespo this past week and lisinopril and metoprolol were taken away. Patient reports shortness of breath and rapid heart rate with minimal exertion. No chest pain. No abdominal pain. No fever.. Historical: - Allergies: 11:41 Aspirin; ko1 11:41 Compazine; ko1 11:41 Methadone; ko1 11:41 Morphine; ko1 11:41 Neurontin; ko1 11:41 PENICILLINS; ko1 11:41 Phenergan; ko1 11:41 plastic tape; ko1 11:41 Suboxone; ko1 - PMHx: 11:41 arterial insuficiency; Back pain; chest pain; Chronic pain; cerebritis; dejenteritive ko1 joint disease; Dyspepsia; esophageal reflux; fatigue; hypersomnia; lumbar radiculitis; Lupus; menopause; Panic Attacks; pulmonary edema; Seizures; Tachycardia; TIA; osteomyelitis; venous insufficiency; - PSHx: 11:41 bowel resection; breast reduction bilateral; hip replacement bilateral; Mitral and ko1 Aortic Valve replacement; right total knee; - Immunization history:: Adult Immunizations up to date. - Social history:: Smoking status: Patient/guardian denies using tobacco. - Family history:: not pertinent. - Hospitalizations: : The patient was recently seen at [facility]. ROS: 11:46 Constitutional: Negative for fever, chills, and weight loss, Cardiovascular: Positive rn for palpitations, negative for chest pain Respiratory: Positive for shortness of breath Abdomen/GI: Negative for abdominal pain, nausea, vomiting, diarrhea, and constipation, MS/Extremity: Negative for injury and deformity, Skin: Negative for injury, rash, and discoloration, Neuro: Positive for generalized weakness Exam: 11:46 Constitutional: This is a well developed, well nourished patient who is awake, alert, rn and in no acute distress. Head/Face: Normocephalic, atraumatic. Eyes: Pale conjunctiva Cardiovascular: Tachycardic irregular. Respiratory: No increased work of breathing, no retractions or nasal flaring. Abdomen/GI: Soft, non-tender Skin: Warm, dry MS/ Extremity: Pulses equal, no cyanosis Neuro: Awake and alert, GCS 15 12:36 ECG was reviewed by the Attending Physician. rn Vital Signs: 11:37 BP 102 / 73; Pulse 105; Resp 16; Temp 97; Pulse Ox 100% on 2 lpm NC; ko1 12:59 BP 113 / 73; Pulse 106; Resp 16 S; Pulse Ox 100% on 2 lpm NC; kc6 14:26 BP 110 / 68; Pulse 108; Resp 19 S; Pulse Ox 94% on 2 lpm NC; kc6 16:36 BP 107 / 56; Pulse 67; Resp 18 S; Pulse Ox 100% on 2 lpm NC; kc6 17:24 BP 108 / 59; Pulse 107; Resp 19 S; Pulse Ox 100% on 2 lpm NC; kc6 18:33 BP 105 / 53; Pulse 116; Resp 16; Pulse Ox 100% ; ko1 19:15 BP 106 / 59; Pulse 106; Resp 19; Pulse Ox 100% on 2 lpm NC; jb4 19:45 BP 98 / 61; Pulse 103; Resp 19; Temp 98.8; Pulse Ox 100% on 2 lpm NC; jb4 21:16 BP 112 / 46; Pulse 105; Resp 16; Temp 98.9; Pulse Ox 100% ; bp MDM: 11:39 Patient medically screened. rn 12:42 ED course: Patient refuses rectal exam. 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 States that this is happened before and required multiple blood transfusions and told that [facility] is a blood problem not intestinal problem.. 12:58 Differential diagnosis: Anemia Anxiety Reaction CHF exacerbation, Psychogenic pulmonary rn edema, GI bleed, anemia, supratherapeutic therapeutic INR. Data reviewed: vital signs, nurses notes, lab test result(s), EKG, radiologic studies, and as a result, I will admit patient. Consideration of Admission/Observation Patient was admitted/placed on observation. Escalation of care including admission/observation considered. Management of patient was discussed with the following: Hospitalist: . Counseling: I had a detailed discussion with the patient and/or guardian regarding the historical points, exam findings, and any diagnostic results supporting the discharge/admit diagnosis, lab results, radiology results, the need for further work-up and treatment in the hospital. 05/13 11:45 Order name: Basic Metabolic Panel; Complete Time: 12:57 rn 05/13 11:45 Order name: CBC with Diff; Complete Time: 12:37 rn 05/13 11:45 Order name: Magnesium; Complete Time: 12:57 rn 05/13 11:45 Order name: NT PRO-BNP; Complete Time: 12:57 rn 05/13 11:45 Order name: PT-INR; Complete Time: 12:57 rn 05/13 11:45 Order name: Troponin HS; Complete Time: 12:57 rn 05/13 12:42 Order name: Type And Screen rn 05/13 13:06 Order name: Bb Add On bd 05/13 13:17 Order name: Ferritin; Complete Time: 13:54 rn 05/13 13:17 Order name: Retic Count; Complete Time: 16:56 rn 05/13 13:17 Order name: TRANSFERRIN SAT/IRON BINDING; Complete Time: 13:54 rn 05/13 15:23 Order name: Packed RBCs (Additional Unit) EDNY 05/13 16:32 Order name: Haptoglobin EDNY 05/13 16:32 Order name: Lactic Dehydrogenase EDNY 05/13 16:32 Order name: Slides for Pathologist Review [facility] 05/13 16:32 Order name: Basic Metabolic Panel EDNY 05/13 16:32 Order name: Basic Metabolic Panel EDNY 05/13 16:32 Order name: CBC with Automated Diff EDMS 05/13 16:32 Order name: CBC with Automated Diff EDMS 05/13 16:32 Order name: Magnesium EDMS 05/13 16:32 Order name: Magnesium EDMS 05/13 16:32 Order name: Phosphorus EDMS 05/13 16:32 Order name: Phosphorus EDMS 05/13 16:32 Order name: Troponin High Sensitivity EDMS 05/13 16:32 Order name: Troponin High Sensitivity EDMS 05/13 18:05 Order name: Urine Drug Screen EDMS 05/13 18:25 Order name: D-Dimer EDMS 05/13 18:39 Order name: Hemoglobin A1c EDMS 05/13 18:39 Order name: Thyroid Stimulating Hormone EDMS 05/13 11:45 Order name: XRAY Chest (1 view); Complete Time: 12:43 rn 05/13 18:35 Order name: Echo with Doppler EDMS 05/13 11:45 Order name: EKG; Complete Time: 11:46 rn 05/13 18:35 Order name: CONS Physician Consult EDMS 05/13 11:45 Order name: Cardiac monitoring; Complete Time: 11:47 rn 05/13 11:45 Order name: EKG - Nurse/Tech; Complete Time: 12:00 rn 05/13 11:45 Order name: IV Saline Lock; Complete Time: 12:44 rn 05/13 11:45 Order name: Labs collected and sent; Complete Time: 12:27 rn 05/13 11:45 Order name: O2 Per Protocol; Complete Time: 11:47 rn 05/13 11:45 Order name: O2 Sat Monitoring; Complete Time: 11:48 rn EC:36 Rate is 103 beats/min. Rhythm is regular. QRS Clio is Normal. WI interval is normal. rn QRS interval is normal. QT interval is normal. No Q waves. T waves are Normal. No ST changes noted. Clinical impression: Sinus tachycardia. Interpreted by me. Reviewed by me. Administered Medications: 13:23 Drug: Phytonadione IM 5 mg IM once Route: IM; Site: right deltoid; kc6 14:26 Follow up: Response: No adverse reaction kc6 13:23 Drug: Pantoprazole IVP 40 mg IVP once Route: IVP; Site: right wrist; kc6 14:26 Follow up: Response: No adverse reaction kc6 13:23 Drug: Pantoprazole IV 8 mg/hr IV at 25 ml/hr continuous; (Standard dilution is 80 mg in kc6 250 mL NS) Route: IV; Rate: 25 ml/hr; Site: right wrist; 17:25 Follow up: Response: No adverse reaction; IV Status: Infusion continued upon admission; kc6 IV Intake: 250ml 13:57 Drug: Ondansetron IVP 4 mg IVP once; over 2 minutes Route: IVP; Site: right wrist; kc6 14:26 Follow up: Response: No adverse reaction; Nausea is decreased [facility] Disposition Summary: 05/13/23 13:00 Hospitalization Ordered Notes: Hospitalization Status: Inpatient Admission rn Provider: Lanre Leary rn Location: Telemetry/[facility] (Inpatient) rn Condition: Stable rn Problem: new rn Symptoms: are unchanged rn Bed/Room Type: Standard rn Room Assignment: 228(05/13/23 19:09) Diagnosis - Anemia, unspecified rn - Weakness rn - Supratherapeutic INR rn Forms: - Medication Reconciliation Form rn - SBAR form rn - Leadership Thank You Letter rn Signatures: Dispatcher [employer] Danita Bell RN RN dw Masoud Casey MD MD rn Campbell, Kaitlyn, RN RN kc6 Helena Teixeira RN RN ko1 Corrections: (The following items were deleted from the chart) 12:42 11:46 Constitutional: This is a well developed, well nourished patient who is awake, rn alert, and in no acute distress. Head/Face: Normocephalic, atraumatic. Cardiovascular: Tachycardic irregular. Respiratory: No increased work of breathing, no retractions or nasal flaring. Abdomen/GI: Soft, non-tender Skin: Warm, dry MS/ Extremity: Pulses equal, no cyanosis Neuro: Awake and alert, GCS 15 rn 19:09 13:00 rn dw
[2023-05-13] MEDS ORDERED: PANTOPRAZOLE 40 MG INJ ONE (13:18)
[2023-05-13] MEDS ORDERED: NA CHLORIDE 0.9% 500 ML ONE (13:18)
[2023-05-13] MEDS ORDERED: VITAMIN K (ADULT) 10 MG/ML ONE (13:18)
[2023-05-13 13:40] LABS: RBC Red Blood Cell Count 2.74 M/uL (3.86-4.86)
[2023-05-13 13:51] LABS: Ferritin 35.4 ng/mL (8-388)
[2023-05-13] MEDS ORDERED: ONDANSETRON 4 MG/2 ML VIAL ONE (14:08)
--- NOTE | 2023-05-13 18:12 | P.HP ---
Certification for Inpatient Patient admitted to: Inpatient With expected LOS: >2 Midnights Patient will require the following post-hospital care: None Practitioner: I am a practitioner with admitting privileges, knowledge of patient current condition, hospital course, and medical plan of care. Services: Services provided to patient in accordance with Admission requirements found in Title 42 Section 412.3 of the Code of Federal Regulations Patient History Date of Service: 05/13/23 Reason for admission: Weakness, lightheadedness History of Present Illness: Kim Aldana is a 62-year-old female with a past medical history of UT, hypothyroidism, AVR and MVR, Back pain, chest pain, chronic pain, cerebritis, degenerative joint disease, dyspepsia, GERD, fatigue, hypersomnia, lumbar radiculitis, systemic lupus, panic attacks, seizures, tachycardia, TIA, osteomyelitis, and venous insufficiency, presents to the ED with weakness, lightheadedness, dyspnea on exertion, headache, nausea, palpitations, dizziness, and syncope. Kim reports she had an UT April 15 or and PCI on the Saturday, on discharge she continued to not feel well but assumed it was from having a heart attack. Saturday she had increased shortness of breath on exertion, she needed to sit down after a few feet of walking. Saturday she felt worse, and today her heart rate was 127 and blood pressure 108/44. She talked her primary caregiver who encouraged her to come to the ED. Kim was found to be anemic with hemoglobin of 6.8. Additional testing and labs have been ordered to rule out mechanical hemolysis Initial vitals blood pressure 102/73 heart rate 105, respirations 16, temp 97, pulse ox 100% on 2 L nasal cannula. Significant Labs H&H 6.8/20.9, platelets 264, percent reticulocyte 3.31 troponin 67.0, BMP 4869, D-dimer pending, UDS pending. Chest x-ray shows the lungs are grossly clear, heart is normal size, sternotomy wires noted, no displaced fractures. Kim will be admitted to hospitalist services for further work-up and blood transfusion with a repeat H&H. Allergies Penicillins Allergy (Intermediate, Verified 02/06/23 12:32) Itching/Hives/Rash prochlorperazine [From Compazine] Allergy (Intermediate, Verified 02/06/23 12:32) Nausea/Vomiting prochlorperazine edisylate [From Compazine] Allergy (Intermediate, Verified 02/06/23 12:32) Nausea/Vomiting prochlorperazine maleate [From Compazine] Allergy (Intermediate, Verified 02/06/23 12:32) Nausea/Vomiting promethazine [From Phenergan] Allergy (Intermediate, Verified 02/06/23 12:32) Nausea/Vomiting promethazine HCl [From Phenergan] Allergy (Verified 02/06/23 12:32) Nausea/Vomiting Home Medications: Levothyroxine [Synthroid*] 150 mcg PO DAILY 11/11/19 Metoprolol Succinate [Toprol Xl*] 50 mg PO DAILY 11/11/19 Omeprazole [Prilosec] 40 mg PO DAILY 11/11/19 Venlafaxine HCl [Effexor*] 150 mg PO DAILY 11/11/19 Acyclovir 400 mg PO DAILY 11/01/20 Amitriptyline [Elavil*] 25 mg PO BID 11/01/20 Cyclobenzaprine [Flexeril*] 10 mg PO QID 11/01/20 predniSONE [Prednisone] 2.5 mg PO DAILY #7 tablet 05/31/21 Aspirin [Ecotrin 81 MG] 162 mg PO DAILY #60 tab 04/24/23 Atorvastatin Calcium [Lipitor] 40 mg PO BEDTIME #30 tab 04/24/23 Clopidogrel Bisulfate [Plavix] 75 mg PO DAILY #30 tab 04/24/23 Enoxaparin Sodium [Lovenox 60 MG INJ] 60 mg SQ BID #14 syr 04/24/23 Medihoney [Medihoney Woundcare Gel*] 1 appl TOP DAILY #1 tube 04/24/23 Metoprolol Tartrate [Lopressor*] 12.5 mg PO BID 6AM 6PM #30 tab 04/24/23 Warfarin Sodium [Coumadin*] 4 mg PO DAILY AT SUPPER #30 tab 04/24/23 - Past Medical/Surgical History Diabetic: No -: Systemic lupus erythematous -: cerebritis -: Seizure disorder -: DJD, chronic pain -: GERD -: Chronic steroid use -: Arterial/venous insufficiency -: Anxiety/panic disorder -: amputation of toes left foot -: Bilateral HIP REPLACED -: RIGHT KNEE REPLACED -: MITRAL and AORTIC VALVE REPLACED -: tubal ligation -: Colon sx -: Partial left foot removed Psychosocial/ Personal History: Patient reports that she lives alone with her dog, has caretakers most days of the week. - Family History Sister -: Heart disease - Social History Alcohol use: No CD- Drugs: No Caffeine use: Yes Review of Systems General: Fever, Weakness, Other (headache) Eyes: Unremarkable ENT: Unremarkable Cardiovascular: Palpitations, Light Headedness Gastrointestinal: Nausea Genitourinary: Unremarkable Musculoskeletal: Unremarkable Integumentary: Unremarkable Neurological: Weakness, Other (dizziness) Physical Examination - Physical Exam General: Alert, Oriented x3, Disheveled HEENT: Atraumatic, Normocephalic, PERRLA Neck: Supple, 2+ carotid pulse no bruit Respiratory: Clear to auscultation bilaterally, Normal air movement Cardiovascular: No edema, Normal pulses, Regular rate/rhythm, Normal S1 S2, Irregular heart rate/rhythm Capillary refill: <2 Seconds Gastrointestinal: Normal bowel sounds, Hypoactive, Soft and benign Musculoskeletal: No clubbing, No swelling, No contractures, Other (left foot complete toe amputation) Integumentary: No significant lesion Neurological: Normal speech, Normal strength at 5/5 x4 extr - Studies Laboratory Data (last 24 hrs) 05/13/23 05/13/23 05/13/23 12:20 12:20 12:20 WBC 6.50 Hgb 6.8 L Hct 20.9 L Plt Count 264 PT 62.0 H INR 5.64 Sodium 138 Potassium 3.5 BUN 28 H Creatinine 0.90 Glucose 106 Magnesium 1.9 Assessment and Plan - Plan Assessment and plan NSTEMI in patient with double valve (aortic, mitral) -troponin 67, redraw pending -atrovastin -hold ASA -ECHO Acute hypoxic respiratory distress -100% on 2 LNC Blood loss anemia -H/H 6.8, H/H s/p transfusion -GI consulted -transfusing 2 units s/p AVR and MVR Supratherapeutic INR -INR 5.64 -haptoglobulin, LDH, peripheral blood smear- pending -hold coumadin for now -Daily INR, coumadin adjustments PRN h/o septic lupus -supportive care -continue home medications when available h/o hypothyroidism -restart home medicaitons when available DVT ppx: hold for now while anemic and supratherapeutic INR Full code LOS 2-3 days Discharge Plan: Home Plan to discharge in: 48 Hours - Advance Directives Does patient have a Living Will: Yes Does patient have a Durable POA for Healthcare: No Time Spent Managing Pts Care (In Minutes): 55
[2023-05-14 00:24] VITALS: BMI 23.6
[2023-05-14 01:56] LABS: Absolute Lymphocytes (CBC) 1.1 K/uL (0.7-4.9); Hematocrit 20.5 % (36.0-45.0); Lymphocytes % 19.6 % (15.3-44.8); MCV 79.5 fL (80-100); MPV 8.8 fL (7.6-11.3); Platelets 208 thou/uL (152-406); RBC Red Blood Cell Count 2.58 M/uL (3.86-4.86)
[2023-05-14 01:57] LABS: Protime INR 3.75
[2023-05-14 02:14] LABS: Albumin 2.9 g/dL (3.4-5.0); Bilirubin Total 0.5 mg/dL (0.2-1.0); Phosphorus 3.1 mg/dL (2.5-4.9); Potassium 3.7 mEq/L (3.5-5.1); Thyroid Stimulating Hormone 0.608 uIU/mL (0.358-3.740)
[2023-05-14] MEDS: TRAMADOL HCL 50 MG TAB PO PRN ×2 (03:16→11:29)
[2023-05-14] MEDS ORDERED: NA CHLORIDE 0.9% 500 ML ONE (06:05)
--- NOTE | 2023-05-14 07:20 | P.PN ---
Date of Service: 05/14/23 Subjective: new right knee pain after fall from shower ~2days ago at home; painful and sore, worsened with movement feels like can't fully flex knee no obvious bleeds seen; denies dark tarry stool denies chest pain ROS: 10 point ROS as noted above, otherwise negative Physical Exam: GEN: Alert, oriented, NAD HEENT: Normal conjunctiva, sclera anicteric CV: Regular rate and rhythm, no edema Pulm: Nonlabored respirations on 2L NC ABD: Soft, nontender, nondistended MSK: left foot complete toe amputation, R knee without effusion, tender to palpation along patella / joint line, no ecchymosis Neuro: Normal speech, normal affect vitals reviewed Problem List: NSTEMI CAD s/p PCI recently Anemia, acute on chronic R knee pain s/p fall s/p AVR and MVR Supratherapeutic INR h/o septic lupus hypothyroidism NSTEMI CAD s/p PCI recently CXR (05/13): negative for any acute findings trend troponins, monitor on tele Cardiology consulted resume plavix Anemia, acute on chronic initially suspected secondary to blood loss - supratherapeutic INR, on plavix due to recent PCI however denies any bleeding, no melena, no hematochezia reports remote history of "intestinal bleed"; sounds like lower GI in past H&H 6.8 on admission; 9.7 ~3 weeks ago iron studies consistent with iron deficiency anemia s/p 2 uPRBC (05/13 and 05/14) Monitor H&H. GI consulted NPO for tentative EGD 05/14 R knee pain reports new R knee pain after fall at home xray R knee (05/14): ordered to eval PRN pain medication s/p AVR and MVR Supratherapeutic INR INR 5.64 -> 3.75 hold coumadin for now Daily INR, coumadin adjustments PRN h/o septic lupus hypothyroidism confirm home medications, restart as appropriate VTE: home warfarin on hold - supratherapeutic inr, anemia Code: Full Dispo: Home with HH
[2023-05-14] MEDS ORDERED: POTASSIUM CL SA 10 MEQ TAB PO ONE (09:00)
[2023-05-14] MEDS ORDERED: Ringers Lactate 1,000 ML IV ONE (10:09)
[2023-05-14] MEDS ORDERED: LIDOCAINE 1% MPF 5 ML VIAL ONE (10:35)
[2023-05-14] MEDS ORDERED: propofoL 200 MG/20 ML VIAL IV ONE ×2 (10:35)
--- NOTE | 2023-05-14 11:43 | EKG ---
Test Date: 2023-05-13 Test Time: 11:47:49 [employer] Operator: DESIREE MEASUREMENT RESULTS: Intervals: Rate: 103 [place]: 158 QRSD: 94 QT: 374 QTc: 489 [place]: P: 30 [place]: 158 QRS: 9 T: 118 INTERPRETIVE STATEMENTS: Sinus tachycardia T wave abnormality, consider lateral ischemia Abnormal ECG Compared to ECG 04/20/2023 01:04:21 T-wave abnormality now present Possible ischemia now present Electronically Signed On 05-14-23 11:40:49 CDT by Stuart Crespo
[2023-05-14] MEDS ORDERED: INFLUENZA VACCINE (for 6+ mo) 0.5 ML DOSE IMVAC ONE (12:00)
[2023-05-14 12:54] LABS: Hematocrit 21.1 % (36.0-45.0)
--- NOTE | 2023-05-14 14:42 | CON ---
Date of Consultation: 05/14/2023 Reason For Consultation: Coronary artery disease, mechanical aortic and mitral valve. History Of Present Illness: A 62-year-old female, history of mechanical mitral and aortic valve, sev ere coronary artery disease, status post recent PCI to the ostial LAD. Has also a seizure disorder, acid reflux, dyslipidemia, presented with generalized weakness and shortness of breath with activity. Found to be severely anemic, status post 3 units of PRBC transfusion and patient denies having any bleeding. No GI bleed or hematuria. Past Medical History: As outlined above in the HPI. Medications: Refer reconciliation sheet for detailed list. Allergies: PENICILLIN, PROCHLORPERAZINE. Family History: No premature coronary artery disease or cancer. Social History: She does not smoke or drink. Does not use any drugs. Review of Systems: All systems were reviewed and they were negative except what mentioned in the HPI. Physical Examination: Vital Signs: Reviewed. Head and Neck: Pupils are equal, reactive to light. Intact eye movements. There is no JVD. No cer vical lymphadenopathy. Neck is supple. Thyroid is not enlarged. Lungs: Clear to auscultation bilaterally. No rhonchi, wheezing, or crackles. No accessory muscle u se. Heart: Regular rate and rhythm. No extra sounds. Abdomen: Soft, nontender. Bowel sounds positive. No organomegaly. No masses or hernia. No rigidi ty or rebound. Extremities: No edema, clubbing, or cyanosis. Intact pulses. Skin: No rash. No nodule. Neurologic: Alert, awake, oriented x3. No acute focal deficits appreciated. Investigations: INR was 5.6 on admission, now 3.75, hemoglobin was 6.8. Assessment And Recommendations: 1.Coronary artery disease, status post percutaneous coronary intervention to the left anterior desce nding recently. Recommend to resume Plavix and Coumadin. Once INR is between 2 and 3 to resume the Coumadin and resume Plavix 75 mg daily. There is no active gastrointestinal bleed, status post esoph agogastroduodenoscopy and no active bleeding. 2.Elevated troponin with history of coronary artery disease. This is demand. No chest pain. Recom mendation as above. 3.Aortic and mitral valve mechanical prosthesis present. The patient needs to stay on Coumadin with INR between 2 and 3. 4.Anemia, severe. No bleeding, and gastrointestinal workup is being conducted. /GERARDO Voice ID: [id number] Report ID: [id number]
--- NOTE | 2023-05-14 16:16 | RAD REPORT ---
EXAM DESCRIPTION: RAD - Knee Right 3 View - 05/14/2023 2:14 pm CLINICAL HISTORY: Knee pain s/p fall COMPARISON: No comparisons TECHNIQUE: Right knee, 3 views. FINDINGS: Evidence of acute fracture. Sequelae of total knee arthroplasty. Anterior subluxation of t he distal femur by approximately half shaft width, relative to the tibial component. Sclerotic change s in the distal femoral metaphysis suggestive of prior bony infarcts.No joint effusion seen. No soft tissue abnormality. IMPRESSION: Anterior subluxation of the distal femur relative to the tibia, suggesting a degree of i nstability. No other arthroplasty complications.
[2023-05-14] MEDS: ATORVASTATIN 40 MG TAB PO SCH (20:48)
[2023-05-14] MEDS: DOXEPIN HCL 25 MG CAP PO SCH (20:48)
[2023-05-15 02:05] LABS: Hematocrit 21.1 % (36.0-45.0); MCV 81.2 fL (80-100); MPV 8.8 fL (7.6-11.3); Platelets 188 thou/uL (152-406)
[2023-05-15 02:11] LABS: Potassium 3.7 mEq/L (3.5-5.1)
--- NOTE | 2023-05-15 07:34 | P.PN ---
Date of Service: 05/15/23 Subjective: knee continues to hurt; otherwise feeling okay; ambulating slowly/ok in room no obvious bleeds or bruising remains tachycardic, hypotensive / borderline no acute events overnight ROS: 10 point ROS as noted above, otherwise negative Physical Exam: GEN: Alert, oriented, NAD HEENT: Normal conjunctiva, sclera anicteric CV: Sinus tachycardia, no edema Pulm: Nonlabored respirations on 2L NC, clear bilaterally ABD: Soft, nontender, nondistended MSK: R knee without effusion, tender to palpation along patella / joint line, no ecchymosis Neuro: Normal speech, normal affect vitals reviewed Problem List: NSTEMI CAD s/p PCI recently Anemia, acute on chronic R knee pain s/p fall s/p AVR and MVR on coumadin Supratherapeutic INR Mild Gastritis h/o lupus hypothyroidism Anemia, acute on chronic; unclear etiology initially suspected secondary to blood loss - supratherapeutic INR, on plavix due to recent PCI however denies any bleeding, no melena, no hematochezia reports remote history of "intestinal bleed"; sounds like lower GI in past H&H 6.8 on admission; 9.7 ~3 weeks ago iron studies consistent with iron deficiency anemia s/p 2 uPRBC (05/13 and 05/14) Monitor H&H. GI consulted EGD (05/14): mild gastritis; no active GI bleed seen 05/15 - hgb 7.2 -> 7.1, +patient remains symptomatic; tachy, hypotensive 1 uPRBC ordered 05/15 NSTEMI CAD s/p PCI recently s/p AVR and MVR Supratherapeutic INR CXR (05/13): negative for any acute findings Cardiology consulted; suspect demand ischemia / anemia continue plavix, restart coumadin INR 5.64 -> 3.75 - pending today received IM Vit K in ED; anticipate coumadin further decreasing today, may need heparin bridge if low R knee pain reports new R knee pain after fall at home xray R knee (05/14): no evidence of fracture. Anterior subluxation of the distal femur relative to the tibia, suggesting a degree of instability. No other arthroplasty complications PRN pain medication PT consult h/o lupus hypothyroidism confirm home medications, restart as appropriate VTE: restart home coumadin +/- bridge pending INR Code: Full Dispo: Home with , ~1-2 days pending further improvement, hgb stabilizes
[2023-05-15] MEDS: CLOPIDOGREL 75 MG TABLET PO SCH (07:56)
[2023-05-15] MEDS: LEVOTHYROXINE SOD 0.125 MG TAB PO SCH (07:56)
[2023-05-15] MEDS: VENLAFAXINE HCL 75 MG TABLET PO SCH (07:57)
[2023-05-15] MEDS ORDERED: NA CHLORIDE 0.9% 250 ML IV SCH (08:00)
[2023-05-15] MEDS ORDERED: SOD FERRIC GLUC COMPLX/SUCROSE 125 MG in NA CHLORIDE 0.9% 100 ML IV SCH (09:00)
[2023-05-15] MEDS ORDERED: POTASSIUM CL SA 10 MEQ TAB PO ONE (09:00)
[2023-05-15] MEDS ORDERED: NA CHLORIDE 0.9% 250 ML ONE (09:41)
[2023-05-15] MEDS ORDERED: PANTOPRAZOLE 40MG TABLET PO ONE (14:00)
[2023-05-15 14:43] LABS: Protime INR 1.19
[2023-05-15 14:44] LABS: Hematocrit 23.2 % (36.0-45.0)
[2023-05-15] MEDS: HEPARIN/D5W 25,000 UNIT/500 ML BAG IV SCH (15:37)
[2023-05-15] MEDS: WARFARIN SODIUM 4 MG TAB PO SCH (17:40)
--- NOTE | 2023-05-15 19:27 | PN ---
Date of Progress Note: 05/15/2023 Subjective: Seen by bedside. Doing clinically well. Does not have any chest pain or shortness of b reath. No active bleeding. EGD was negative. Review of Systems: No chest pain, shortness of breath, orthopnea, or cough. No nausea, vomiting, or diarrhea. All othe r systems were reviewed, they were negative. Objective: Vital Signs: Reviewed. Head and Neck: Pupils are equal, reactive to light. Intact eye movements. No JVD. No cervical lym phadenopathy. Neck is supple. Thyroid is not enlarged. Lungs: Clear to auscultation bilaterally. No rhonchi, wheezing, or crackles. No accessory muscle u se. Heart: Regular rate and rhythm. No extra sounds. Abdomen: Soft, nontender. Bowel sounds positive. No organomegaly. No masses or hernia. No rigidi ty or rebound. Extremities: No clubbing or cyanosis. Intact pulses. Skin: No rash. No nodule. Neurologic: Alert, awake, oriented x3. No acute focal deficits appreciated. Investigations: BUN 25, creatinine 0.99, and hemoglobin is 7.8, and INR is 1.19. Assessment And Recommendations: 1.Coronary artery disease, recent PCI done. Resume Plavix and Coumadin. 2.Mechanical aortic and mitral valve. She needs the Coumadin back, bridge with heparin, and get the INR to be between 2 and 3. If the patient is losing blood continuously on that, then I would recomm end CT Surgery evaluation for possible replacement of at least the mitral valve to a tissue valve to allow coming off the anticoagulant. 3.Severe anemia, source is not clear. No active bleeding and the patient is being managed and follo wed up by GI. SR/MODL Voice ID: [id number] Report ID: [id number]
[2023-05-15] MEDS ORDERED: predniSONE 5 MG TAB PO ONE (19:47)
[2023-05-15] MEDS: DOXEPIN HCL 25 MG CAP PO SCH (20:58)
[2023-05-15] MEDS: ATORVASTATIN 40 MG TAB PO SCH (20:59)
[2023-05-15] MEDS: CODEINE 30MG/APAP 300MG TAB PO PRN (20:59)
[2023-05-16 03:55] LABS: Protime INR 1.09
[2023-05-16 03:56] LABS: Hematocrit 26.3 % (36.0-45.0); MCV 83.1 fL (80-100); MPV 8.9 fL (7.6-11.3); Platelets 183 thou/uL (152-406); RBC Red Blood Cell Count 3.16 M/uL (3.86-4.86)
[2023-05-16 04:07] LABS: Magnesium 1.9 mg/dL (1.6-2.4); Potassium 4.3 mEq/L (3.5-5.1)
[2023-05-16] MEDS: PANTOPRAZOLE 40MG TABLET PO SCH (06:00)
--- NOTE | 2023-05-16 07:05 | P.PN ---
Date of Service: 05/16/23 Subjective: started heparin drip yesterday afternoon for subtherapeutic inr Feeling better today no obvious bleeds noted ROS: 10 point ROS as noted above, otherwise negative Physical Exam: GEN: Alert, oriented, NAD HEENT: Normal conjunctiva, sclera anicteric CV: Sinus tachycardia, no edema Pulm: Nonlabored respirations on room air, clear bilaterally ABD: Soft, nontender, nondistended MSK: R knee without effusion, mild tendernes to palpation, no ecchym osis/swelling Neuro: Normal speech, normal affect vitals reviewed Problem List: Anemia, acute on chronic; unclear etiology NSTEMI CAD s/p PCI recently R knee pain s/p fall s/p AVR and MVR on coumadin Supratherapeutic INR on admission Mild Gastritis h/o lupus hypothyroidism Anemia, acute on chronic; unclear etiology initially suspected secondary to blood loss - supratherapeutic INR, on plavix due to recent PCI however denies any bleeding, no melena, no hematochezia reports remote history of "intestinal bleed"; sounds like lower GI in past H&H 6.8 on admission; 9.7 ~3 weeks ago iron studies consistent with iron deficiency anemia GI consulted EGD (05/14): mild gastritis; no active GI bleed seen 05/16 - hgb 7.1 -> 7.8 -> 9.1 s/p 3 uPRBC (05/13, 05/14, and 05/15) Monitor H&H. restarted PPI 05/15 NSTEMI CAD s/p PCI recently s/p AVR and MVR Supratherapeutic INR CXR (05/13): negative for any acute findings Cardiology consulted; suspect demand ischemia / anemia continue plavix INR 5.64 -> 3.75 -> 1.19 -> 1.09 received IM Vit K in ED; INR dropped to subtherapeutic levels started IV heparin bridge on 05/15 coumadin restarted 05/15 heparin for now given uncertainty of anemia, monitor for signs of bleeding R knee pain s/p fall reports new R knee pain after fall at home xray R knee (05/14): no evidence of fracture. Anterior subluxation of the distal femur relative to the tibia, suggesting a degree of instability. No other arthroplasty complications PRN pain medication PT consult h/o lupus hypothyroidism confirm home medications, restart as appropriate VTE: heparin drip, restarted coumadin Code: Full Dispo: Home with , ~4days pending further improvement, hgb stabilizes, INR improves
[2023-05-16] MEDS: LEVOTHYROXINE SOD 0.125 MG TAB PO SCH (08:47)
[2023-05-16] MEDS: VENLAFAXINE HCL 75 MG TABLET PO SCH (08:47)
[2023-05-16] MEDS: predniSONE 5 MG TAB PO SCH (08:47)
[2023-05-16] MEDS: CLOPIDOGREL 75 MG TABLET PO SCH (08:47)
[2023-05-16] MEDS: CODEINE 30MG/APAP 300MG TAB PO PRN ×2 (12:09→18:07)
[2023-05-16] MEDS: HEPARIN/D5W 25,000 UNIT/500 ML BAG IV SCH (12:39)
[2023-05-16] MEDS: WARFARIN SODIUM 4 MG TAB PO SCH (16:57)
[2023-05-16] MEDS: DOXEPIN HCL 25 MG CAP PO SCH (20:53)
[2023-05-16] MEDS: ATORVASTATIN 40 MG TAB PO SCH (20:53)
[2023-05-17] MEDS: CODEINE 30MG/APAP 300MG TAB PO PRN ×3 (00:21→23:58)
[2023-05-17 04:53] LABS: Hematocrit 24.4 % (36.0-45.0); MCV 84.2 fL (80-100); Platelets 167 thou/uL (152-406)
[2023-05-17 04:56] LABS: Protime INR 1.2
[2023-05-17 05:08] LABS: Magnesium 1.8 mg/dL (1.6-2.4); Potassium 3.5 mEq/L (3.5-5.1)
[2023-05-17] MEDS: PANTOPRAZOLE 40MG TABLET PO SCH (05:16)
--- NOTE | 2023-05-17 07:34 | P.PN ---
Date of Service: 05/17/23 Subjective: Doing okay - feeling a little better tentative plan for deep cleaning of left foot wound at bedside today no obvious bleeds noted no n/v/d ROS: 10 point ROS as noted above, otherwise negative Physical Exam: GEN: Alert, oriented, NAD HEENT: Normal conjunctiva, sclera anicteric CV: intermittent Sinus tachycardia, no edema Pulm: Nonlabored respirations on room air, clear bilaterally ABD: Soft, nontender, nondistended MSK: R knee without effusion, mild tendernes to palpation, no ecchymosis/swelling Integumentary: R first toe ulcer Neuro: Normal speech, normal affect vitals reviewed Problem List: Anemia, acute on chronic; unclear etiology NSTEMI CAD s/p PCI recently s/p AVR and MVR on coumadin Supratherapeutic INR on admission R knee pain s/p fall Chronic Left foot Wound Mild Gastritis h/o lupus hypothyroidism Anemia, acute on chronic; unclear etiology initially suspected secondary to blood loss - supratherapeutic INR, on plavix due to recent PCI however denies any bleeding, no melena, no hematochezia reports remote history of "intestinal bleed"; sounds like lower GI in past H&H 6.8 on admission; 9.7 ~3 weeks ago iron studies consistent with iron deficiency anemia GI consulted EGD (05/14): mild gastritis; no active GI bleed seen hgb 9.1 -> 8.2 (05/17) s/p 3 uPRBC (05/13, 05/14, and 05/15) Monitor H&H. suspect 9.1 was erroneously elevated. low 8s more expected recheck h/h this afternoon, transition to lovenox if stable continue PPI NSTEMI CAD s/p PCI recently s/p AVR and MVR Supratherapeutic INR CXR (05/13): negative for any acute findings Cardiology consulted; suspect demand ischemia / anemia continue plavix INR 1.09 -> 1.20 received IM Vit K in ED; INR dropped to subtherapeutic levels continue IV heparin bridge continue coumadin heparin for now given uncertainty of anemia, monitor for signs of bleeding recheck hgb; if stable can switch to lovenox R knee pain s/p fall reports new R knee pain after fall at home xray R knee (05/14): no evidence of fracture. Anterior subluxation of the distal femur relative to the tibia, suggesting a degree of instability. No other arthroplasty complications PRN pain medication PT consult Chronic Left foot Wound photo documented in EMR; sees Dr. seth as outpatient General surgery consulted - Dr. Seth tentative plan for deep cleaning of foot/toe wound at bedside today wound care consult h/o lupus hypothyroidism confirm home medications, restart as appropriate VTE: heparin drip, coumadin -- recheck hgb ~noon; if stable can switch to lovenox Code: Full Dispo: Home with HH, ~3days pending further improvement, hgb stabilizes, INR improves
[2023-05-17] MEDS: VENLAFAXINE HCL 75 MG TABLET PO SCH (09:32)
[2023-05-17] MEDS: CLOPIDOGREL 75 MG TABLET PO SCH (09:33)
[2023-05-17] MEDS: predniSONE 5 MG TAB PO SCH (09:33)
[2023-05-17] MEDS: LEVOTHYROXINE SOD 0.125 MG TAB PO SCH (09:33)
[2023-05-17 11:56] LABS: Hematocrit 24.3 % (36.0-45.0)
[2023-05-17] MEDS ORDERED: POTASSIUM CL SA 10 MEQ TAB PO ONE (12:00)
[2023-05-17] MEDS ORDERED: MAGNESIUM SULFATE 1 gm IVPB 1 GM/100 ML BAG IV ONE (12:00)
[2023-05-17] MEDS: ENOXAPARIN 80 MG/0.8 ML SQ SCH (12:56)
[2023-05-17] MEDS ORDERED: LIDOCAINE 1% 20 ML MDV SQ ONE (16:28)
[2023-05-17] MEDS: WARFARIN SODIUM 4 MG TAB PO SCH (16:54)
--- NOTE | 2023-05-17 16:58 | P.BOP ---
Preoperative diagnosis: left foot necrotic ulcer Postoperative diagnosis: same Primary procedure: Excisional debridement of left foot necrotic ulcer 3x2cm Estimated blood loss: <1cc Findings: pressure ulcer. Necrotic issue removed Anesthesia: Local Complications: None Drain(s): Other (wet to dry ) Transferred to: Other Condition: Good
--- NOTE | 2023-05-17 18:41 | PN ---
Date of Progress Note: 05/17/2023 Subjective: Seen by bedside. Doing clinically well. Does not have any symptoms. Review of Systems: No chest pain, shortness of breath, orthopnea, cough. No nausea, vomiting, diarrhea. All other syst ems reviewed and they were negative. Physical Examination: Vital Signs: Reviewed. Head and Neck: Pupils are equal, reactive to light. Intact eye movements. No JVD. No cervical lym phadenopathy. Neck is supple. Thyroid is not enlarged. Lungs: Clear to auscultation bilaterally. No rhonchi, wheezing, or crackles. No accessory muscle u se. Heart: Regular rate and rhythm. No extra sounds. Abdomen: Soft, nontender. Bowel sounds positive. No organomegaly. No masses or hernia. No rigidi ty or rebound. Extremities: No clubbing or cyanosis. Intact pulses. Skin: No rash. Neurologic: Alert, awake, oriented x3. No acute focal deficits appreciated. Investigations: Labs reviewed. Assessment/recommendation: 1.Coronary artery disease, status post recent percutaneous coronary intervention of the left anterio r descending. Continue Coumadin and Plavix. 2.Mechanical aortic and mitral valve. She needs to continue bridging with heparin until INR is betw een 2 and 3. 3.Dyslipidemia. Continue statin. 4.Anemia, hemoglobin has been stable. SR/MODL Voice ID: [id number] Report ID: [id number]
--- NOTE | 2023-05-17 20:16 | CON ---
Date of Consultation: 05/17/2023 Reason For Service: Necrotic ulcer, infected ulcer on the left foot. History Of Present Illness: This is a case of a 62-year-old patient with history of peripheral vascu lar disease, admitted to the hospital with lightheaded and weakness. During the process, the patient was also found to have an infected necrotic ulcer on the left foot and a surgical consult was obtain ed. We noticed the patient from the past, [facility], we diagnosed in the past, osteomyelitis of the right first toe, but even though she was recommended to have IV antibioti cs and she did not want to proceed with that. In that area, she had a callus, it is not draining at this moment, the problem that she has since in the left foot. She has all the toes already out of th at area, but she has this ulcer on the plantar surface of the foot with necrotic area, she has to wal k on it and that is causing some more damage. We have been see her in the [facility] last few weeks. Past Medical History: Include [place], hypothyroidism, chest pain, chronic pain, DJD, GERD, lumbar radicu litis, lupus, panic attacks, seizures, tachycardia, TIAs, arterial insufficiency, venous insufficienc y. Medications: Include Coumadin and heparin drip, prednisone, Flexeril, Effexor, Prilosec, Synthroid. Past Surgical History: Include mitral and aortic valve replaced, tubal ligation, colon surgery she d oes not remember the reason for it. Right knee replaced, bilateral hip replaced, multiple amputation of the left foot toes. Social History: She does smoke. She was advised multiple locations the importance of smoking cessat ion and she does not drink alcohol. No IV drug use. Review of Systems: The patient feels better now when she came initially. She has some fever, weakness. Right now, we j ust basically have the open area on the left foot. No shortness of breath. No chest pain. Review of Systems: Ten points otherwise unremarkable. Physical Examination: General: The patient is awake, alert. HEENT: Pupils are equal and reactive. Anicteric. Neck: Supple. Chest: Clear. Heart: S1, S2. Abdomen: Soft and depressible. Extremities: Diminished pulses bilaterally are chronic on her case. She has severe peripheral vascu lar disease on the right foot. The patient has a first toe with callus present, once again that is t he area of previous osteomyelitis. On the left foot, the patient has a necrotic ulcer about 5 cm in size. There is partially opening of the ulcer with necrotic tissue and callus and also erythema cons istent with infected ulcer. We will need debridement. I agree with the primary doctor. Laboratory Data: Blood work shows WBC count of 4.7, hemoglobin of 8.2, she comes initially with a he moglobin of 6.8. Glucose is 84, INR is 1.20. Assessment: This is a 62-year-old patient with necrotic ulcer on the left foot. The patient will go for debridement since she is on heparin drip and Coumadin and is important for us to get . I am going to do the procedure at bedside. The OR team was kind enough to help me in the case and bring the procedure to her room. The benefits, alternatives, and risks still same, which include, bu t not limited to infection, bleeding, damage to adjacent structures, nonhealing wound, [place], and even d eath. She also understands the importance of offloading, important to control her blood thinners and wound care. She also advised once again follow recommendations of coming to the [facility] FRANCE/GERARDO Voice ID: [id number] Report ID: [id number]
--- NOTE | 2023-05-17 20:41 | OP ---
Date of Procedure: 05/17/2023 Surgeon: Danie Seth MD Preoperative Diagnoses: Left foot necrotic ulcer, status post heart attack. Postoperative Diagnoses: Left foot necrotic ulcer, status post heart attack. Procedure: Excisional debridement of left foot necrotic ulcer, subcu 3 x 2 cm x 1.5 cm. Estimated Blood Loss: Less than 1 cc. Finding: Pressure ulcer, necrotic tissue removed. Anesthesia: Local. Complications: None. Indications: This is a case of a 62-year-old patient with recent heart attack has been busy doing a lot of her medical conditions treatment and has been putting a little bit more pressure in her foot, making her wound slightly bigger. She has some necrotic tissue present and the surgical consult was obtained for debridement. The OR was kind enough to provide us with instruments and personnel to go to her room since she is right now on then drip and multiple medical issues and it will be more conve nient for the patient to have it out of there plus she was very hungry and she did not want to wait. So, we did under local anesthetic. The benefits, alternatives, and risks were fully explained, whic h include, but not limited to infection, bleeding, damage to adjacent structures, anesthesia complica tion, nonhealing wound, [place], and even . Procedure In Detail: Left foot was prepped and draped in a sterile fashion. A time-out was called. After that, we placed lidocaine 1% plain. Then, after that, using an 11 blade, we proceeded to do s ubcutaneous debridement of that area, removing the necrotic tissue. Patient tolerated the procedure well. The area was packed with a dry dressing. EDILMA/GERARDO Voice ID: [id number] Report ID: [id number]
[2023-05-17] MEDS: DOXEPIN HCL 25 MG CAP PO SCH (21:27)
[2023-05-17] MEDS: ATORVASTATIN 40 MG TAB PO SCH (21:28)
[2023-05-18 03:05] LABS: Protime INR 1.49
[2023-05-18 03:06] LABS: Hematocrit 26.1 % (36.0-45.0); MCV 85.5 fL (80-100); MPV 8.8 fL (7.6-11.3); Platelets 213 thou/uL (152-406); RBC Red Blood Cell Count 3.06 M/uL (3.86-4.86)
[2023-05-18 03:37] LABS: Magnesium 2.3 mg/dL (1.6-2.4); Potassium 3.9 mEq/L (3.5-5.1)
[2023-05-18] MEDS ORDERED: POTASSIUM CL SA 10 MEQ TAB PO ONE (06:00)
[2023-05-18] MEDS: PANTOPRAZOLE 40MG TABLET PO SCH (06:00)
--- NOTE | 2023-05-18 07:01 | P.PN ---
Date of Service: 05/18/23 Subjective: Feeling better today s/p Excisional debridement of left foot necrotic ulcer at bedside yesterday no new / worsening problems INR slowly improving ROS: 10 point ROS as noted above, otherwise negative Physical Exam: GEN: Alert, oriented, NAD HEENT: Normal conjunctiva, sclera anicteric CV: intermittent Sinus tachycardia, no edema Pulm: Nonlabored respirations on room air, clear bilaterally ABD: Soft, nontender, nondistended Integumentary: L foot ulcer; dressing in place Neuro: Normal speech, normal affect vitals reviewed Problem List: Anemia, acute on chronic; unclear etiology NSTEMI CAD s/p PCI recently s/p AVR and MVR on coumadin Supratherapeutic INR on admission R knee pain s/p fall Left foot ulcer with necrotic tissue s/p Excisional debridement (05/18) Mild Gastritis h/o lupus hypothyroidism Anemia, acute on chronic; unclear etiology initially suspected secondary to blood loss - supratherapeutic INR, on plavix due to recent PCI however denies any bleeding, no melena, no hematochezia reports remote history of "intestinal bleed"; sounds like lower GI in past H&H 6.8 on admission; 9.7 ~3 weeks ago iron studies consistent with iron deficiency anemia GI consulted EGD (05/14): mild gastritis; no active GI bleed seen hgb 8.1 -> 8.5 (05/18) s/p 3 uPRBC (05/13, 05/14, and 05/15) Monitor H&H. suspect 9.1 was erroneously elevated. low 8s more expected continue PPI NSTEMI CAD s/p PCI recently s/p AVR and MVR on coumadin Supratherapeutic INR on admission CXR (05/13): negative for any acute findings Cardiology consulted; suspect demand ischemia / anemia continue plavix INR 1.2 -> 1.5 (05/18) received IM Vit K in ED; INR dropped to subtherapeutic levels heparin drip switched to lovenox 05/17 continue coumadin 4mg (takes 3mg at home) has home machine to check INR R knee pain s/p fall reports new R knee pain after fall at home xray R knee (05/14): no evidence of fracture. Anterior subluxation of the distal femur relative to the tibia, suggesting a degree of instability. No other arthroplasty complications PRN pain medication PT consult Left foot ulcer with necrotic tissue s/p Excisional debridement (05/18) photo documented in EMR; sees Dr. Seth as outpatient General surgery consulted - Dr. Seth s/p Excisional debridement of left foot necrotic ulcer at bedside (05/18) wound care consult Mild Gastritis h/o lupus hypothyroidism confirm home medications, restart as appropriate VTE: coumadin, lovenox Code: Full Dispo: Home with HH, ~2days pending further improvement, INR improves
[2023-05-18] MEDS: CODEINE 30MG/APAP 300MG TAB PO PRN ×3 (08:39→21:02)
[2023-05-18] MEDS: ENOXAPARIN 80 MG/0.8 ML SQ SCH (08:39)
[2023-05-18] MEDS: LEVOTHYROXINE SOD 0.125 MG TAB PO SCH (08:40)
[2023-05-18] MEDS: CLOPIDOGREL 75 MG TABLET PO SCH (08:40)
[2023-05-18] MEDS: predniSONE 5 MG TAB PO SCH (08:40)
[2023-05-18] MEDS: VENLAFAXINE HCL 75 MG TABLET PO SCH (08:40)
[2023-05-18] MEDS: WARFARIN SODIUM 4 MG TAB PO SCH (15:57)
[2023-05-18] MEDS: MELATONIN 5 MG TABLET PO PRN (21:03)
[2023-05-18] MEDS: DOXEPIN HCL 25 MG CAP PO SCH (21:04)
[2023-05-18] MEDS: ATORVASTATIN 40 MG TAB PO SCH (21:04)
[2023-05-19 03:09] LABS: Hematocrit 25.9 % (36.0-45.0); MCV 83.9 fL (80-100); MPV 8.8 fL (7.6-11.3); Platelets 203 thou/uL (152-406); RBC Red Blood Cell Count 3.09 M/uL (3.86-4.86)
[2023-05-19 03:11] LABS: Protime INR 1.9
[2023-05-19] MEDS: CODEINE 30MG/APAP 300MG TAB PO PRN ×3 (05:35→20:35)
[2023-05-19] MEDS: PANTOPRAZOLE 40MG TABLET PO SCH (05:35)
--- NOTE | 2023-05-19 07:09 | P.PN ---
Date of Service: 05/19/23 Subjective: Feeling better today INR continues to improve no obvious bleeding knee pain ~same; not worse but not improving able to ambulate/put weight on it but painful ROS: 10 point ROS as noted above, otherwise negative Physical Exam: GEN: Alert, oriented, NAD CV: intermittent Sinus tachycardia, no edema Pulm: Nonlabored respirations on room air, clear bilaterally ABD: Soft, nontender, nondistendedF MSK: R knee tender on medial aspect, no effusion Integumentary: L foot ulcer; dressing in place Neuro: Normal speech, normal affect vitals reviewed Problem List: Anemia, acute on chronic; unclear etiology NSTEMI CAD s/p PCI recently s/p AVR and MVR on coumadin Supratherapeutic INR on admission R knee pain s/p fall Left foot ulcer with necrotic tissue s/p Excisional debridement (05/18) Mild Gastritis h/o lupus hypothyroidism Anemia, acute on chronic; unclear etiology initially suspected secondary to blood loss - supratherapeutic INR, on plavix due to recent PCI however denies any bleeding, no melena, no hematochezia reports remote history of "intestinal bleed"; sounds like lower GI in past H&H 6.8 on admission; 9.7 ~3 weeks ago iron studies consistent with iron deficiency anemia GI consulted EGD (05/14): mild gastritis; no active GI bleed seen hgb 8.5 -> 8.8 (05/19) s/p 3 uPRBC (05/13, 05/14, and 05/15) Monitor H&H. suspect 9.1 was erroneously elevated. low 8s more expected continue PPI NSTEMI CAD s/p PCI recently s/p AVR and MVR on coumadin Supratherapeutic INR on admission CXR (05/13): negative for any acute findings Cardiology consulted; suspect demand ischemia / anemia continue plavix INR 1.5 -> 1.9 (05/19) patient goal: ~2.5-3.5 INR received IM Vit K in ED; INR dropped to subtherapeutic levels heparin drip switched to lovenox 05/17 continue coumadin 4mg (takes 3mg at home) has home machine to check INR R knee pain s/p fall reports new R knee pain after fall at home xray R knee (05/14): no evidence of fracture. Anterior subluxation of the distal femur relative to the tibia, suggesting a degree of instability. No other arthroplasty complications PRN pain medication PT consult Left foot ulcer with necrotic tissue s/p Excisional debridement (05/18) photo documented in EMR; sees Dr. Seth as outpatient General surgery consulted - Dr. Seth s/p Excisional debridement of left foot necrotic ulcer at bedside (05/18) wound care consult Mild Gastritis h/o lupus hypothyroidism confirm home medications, restart as appropriate VTE: coumadin, lovenox Code: Full Dispo: Home with HH, ~1-2 days pending further improvement, INR improves
[2023-05-19] MEDS: predniSONE 5 MG TAB PO SCH (09:48)
[2023-05-19] MEDS: CLOPIDOGREL 75 MG TABLET PO SCH (09:48)
[2023-05-19] MEDS: VENLAFAXINE HCL 75 MG TABLET PO SCH (09:48)
[2023-05-19] MEDS: LEVOTHYROXINE SOD 0.125 MG TAB PO SCH (09:49)
[2023-05-19] MEDS: ENOXAPARIN 80 MG/0.8 ML SQ SCH (09:49)
[2023-05-19] MEDS: WARFARIN SODIUM 4 MG TAB PO SCH (18:11)
[2023-05-19] MEDS: DOXEPIN HCL 25 MG CAP PO SCH (20:35)
[2023-05-19] MEDS: ATORVASTATIN 40 MG TAB PO SCH (20:35)
[2023-05-19] MEDS: MELATONIN 5 MG TABLET PO PRN (20:36)
[2023-05-19 22:58] VITALS: O2SAT 96
[2023-05-20 04:44] LABS: Hematocrit 24.9 % (36.0-45.0); MCV 84.2 fL (80-100); MPV 8.7 fL (7.6-11.3); Platelets 196 thou/uL (152-406); RBC Red Blood Cell Count 2.96 M/uL (3.86-4.86)
[2023-05-20 04:49] LABS: Protime INR 2.56
[2023-05-20 04:58] LABS: Potassium 3.8 mEq/L (3.5-5.1)
[2023-05-20] MEDS: PANTOPRAZOLE 40MG TABLET PO SCH (05:48)
[2023-05-20] MEDS: CODEINE 30MG/APAP 300MG TAB PO PRN (08:43)
[2023-05-20] MEDS: predniSONE 5 MG TAB PO SCH (08:44)
[2023-05-20] MEDS: LEVOTHYROXINE SOD 0.125 MG TAB PO SCH (08:44)
[2023-05-20] MEDS: VENLAFAXINE HCL 75 MG TABLET PO SCH (08:44)
[2023-05-20] MEDS: CLOPIDOGREL 75 MG TABLET PO SCH (08:44)
[2023-05-20] MEDS ORDERED: POTASSIUM CL SA 10 MEQ TAB PO ONE (09:00)
[2023-05-20 10:42] VITALS: BP 140/60; TEMP 96.8
--- NOTE | 2023-05-20 13:06 | RAD REPORT ---
EXAM DESCRIPTION: CT - Knee Right Wo Cont - 05/20/2023 9:17 am CLINICAL HISTORY: medial knee pain /distal femur, s/p fall COMPARISON: Knee Right 3 View dated 05/14/2023 TECHNIQUE: Thin cut axial CT imaging of the right knee was performed without IV contrast. Multiplana r reformats were generated and reviewed. Metal artifact reduction technique was also utilized. All CT scans are performed using dose optimization technique as appropriate and may include automated exposure control or mA/KV adjustment according to patient size. FINDINGS: Total knee arthroplasty hardware in place, in satisfactory alignment on the CT images acqu ired today. No findings to suggest hardware loosening. The degree of subluxation seen on the lateral view on the comparison radiographs may raise concern for a degree of instability. Please correlate cl inically. Patchy sclerotic linear areas extending from the hardware interface along the metaphysis of the femur in a columnar fashion, both medially and laterally, but more pronounced laterally, as well as from the tibial stem. This is nonspecific, and may represent an element of healed bone infarcts. No periprostatic fractures. No findings to suggest loosening. Irregularity along the patellar bone, m ay represent sequelae of a healed fracture. IMPRESSION: Total knee arthroplasty hardware in satisfactory alignment. Please correlate clinically for evidence of instability, given the appearance on radiographs performed previously were the knee w as somewhat flexed. Patchy sclerotic linear areas extending along the metadiaphysis of the femur and tibia are nonspecifi c, may represent elements of healed bone infarcts. No other acute findings.
--- NOTE | 2023-05-20 14:43 | P.DS ---
Admission Date: 05/13/23 Discharge Date: 05/20/23 Disposition: ROUTINE DISCHARGE Discharge Condition: GOOD Reason for Admission: Weakness, lightheadedness Consultations: Cardiology - Dr. Crespo GI - Dr. Resendiz General surgery - Dr. Seth Brief History of Present Illness: 62yo F, PMH: DC, hypothyroidism, AVR and MVR, Back pain, chest pain, chronic pain, cerebritis, degenerative joint disease, dyspepsia, GERD, fatigue, hypersomnia, lumbar radiculitis, systemic lupus, panic attacks, seizures, tachycardia, TIA, osteomyelitis, and venous insufficiency, Patient presents to the ED with weakness, lightheadedness, dyspnea on exertion, headache, nausea, palpitations, dizziness, and syncope. Kim reports she had an DC April 15 or and PCI on the Saturday, on discharge she continued to not feel well but assumed it was from having a heart attack. Saturday she had increased shortness of breath on exertion, she needed to sit down after a few feet of walking. Saturday she felt worse, and today her heart rate was 127 and blood pressure 108/44. She talked her primary caregiver who encouraged her to come to the ED. Kim was found to be anemic with hemoglobin of 6.8. Additional testing and labs have been ordered to rule out mechanical hemolysis Initial vitals blood pressure 102/73 heart rate 105, respirations 16, temp 97, pulse ox 100% on 2 L nasal cannula. Significant Labs H&H 6.8/20.9, platelets 264, percent reticulocyte 3.31 troponin 67.0, BMP 4869, D-dimer pending, UDS pending. Chest x-ray shows the lungs are grossly clear, heart is normal size, sternotomy wires noted, no displaced fractures. Hospital Course: Problem List: Anemia, acute on chronic; unclear etiology NSTEMI CAD s/p PCI recently s/p AVR and MVR on coumadin Supratherapeutic INR on admission R knee pain s/p fall Left foot ulcer with necrotic tissue s/p Excisional debridement (05/18) Mild Gastritis h/o lupus hypothyroidism Patient presented with weakness, dyspnea on exertion, nausea, palpitations, dizziness, and syncope. Troponins were elevated. EKG without stemi criteria. INR was noted to be 5.5 on admission; dropped to 1.09. On further review of ER notes patient received IM Vit K in ED - likely culprit; INR dropped to subtherapeutic levels. Cardiology was consulted. She was started on a IV heparin bridge and coumadin restarted. INR continued to improve throughout hospitalization. INR on discharge: 2.56 On admission patients hgb was noted to be 6.8. Initially suspected secondary to blood loss. GI was consulted. EGD was performed on 05/14 with noted mild gastritis. no other findings / active bleed seen. Patient without any obvious bleeding, no melena, no hematochezia. Iron studies consistent with iron deficiency anemia. Suspect multifactorial etiology secondary to supratherapeutic INR / on plavix due to recent PCI. Patient receieved 3 uPRBC throughout hospitalization (05/13, 05/14, and 05/15). Patients hgb stabilized and remained in low 8s for rest of her hospitalization. No further transfusions needed since 05/15. hgb on discharge: 8.2. Recommend repeat blood work with PCP in ~1 week to monitor hemoglobin. In regards to knee pain: xray R knee (05/14): no evidence of fracture. Anterior subluxation of the distal femur relative to the tibia, suggesting a degree of instability. No other arthroplasty complications CT knee was negative for acute fracture. Recommend follow up with PCP and consideration for Ortho follow up if pain persists. In regards to foot pain: General surgery was consulted. Patient underwent Excisional debridement of left foot necrotic ulcer at bedside with Dr. Seth. (05/18) Continue to follow up at wound healing center for continued care. Patients blood pressure has been low to low-normal during hospitalization off her home metoprolol. Recommend Holding metoprolol for now. Advised to check blood pressure daily. Once blood pressure is consistently > 110 systolic can restart metoprolol. Can discuss with PCP/cardiology if adjustments are needed. Medication: iron supplementation hold metoprolol tylenol #3 avoid ibuprofen/aleve/advil; if needing to take something for pain recommend tylenol Follow up: PCP 3-5 days Cardiology 1-2 weeks [facility] for continued care of foot ulcer Physical Exam: GEN: Alert, oriented, NAD CV: intermittent Sinus tachycardia, no edema Pulm: Nonlabored respirations on room air, clear bilaterally ABD: Soft, nontender, nondistended MSK: R knee tender on medial aspect, no effusion Integumentary: L foot ulcer; dressing in place Neuro: Normal speech, normal affect Vital Signs/Physical Exam: Temp Pulse Resp BP Pulse Ox 96.8 F 105 H 18 140/60 100 05/20/23 08:00 05/20/23 08:00 05/20/23 09:43 05/20/23 08:00 05/20/23 09:43 Laboratory Data at Discharge: WBC 5.00 thou/uL (4.3-10.9) 05/20/23 04:34 Hgb 8.2 g/dL (12.0-15.0) L 05/20/23 04:34 Hct 24.9 % (36.0-45.0) L 05/20/23 04:34 Plt Count 196 thou/uL (152-406) 05/20/23 04:34 PT 28.2 SECONDS (9.5-12.5) H 05/20/23 04:34 INR 2.56 05/20/23 04:34 APTT 57.5 SECONDS (24.3-36.9) H 05/17/23 11:40 Sodium 140 mEq/L (136-145) 05/20/23 04:34 Potassium 3.8 mEq/L (3.5-5.1) 05/20/23 04:34 BUN 24 mg/dL (7-18) H 05/20/23 04:34 Creatinine 0.87 mg/dL (0.55-1.02) 05/20/23 04:34 Glucose 100 mg/dL (74-106) 05/20/23 04:34 Phosphorus 3.1 mg/dL (2.5-4.9) 05/14/23 01:29 Magnesium 2.3 mg/dL (1.6-2.4) 05/18/23 02:47 Total Bilirubin 0.5 mg/dL (0.2-1.0) 05/14/23 01:29 AST 14 U/L (15-37) L 05/14/23 01:29 ALT 13 U/L (13-56) 05/14/23 01:29 Alkaline Phosphatase 53 U/L (45-117) 05/14/23 01:29 Home Medications: Levothyroxine [Synthroid*] 125 mcg PO DAILY 11/11/19 Omeprazole [Prilosec] 40 mg PO DAILY 11/11/19 Venlafaxine HCl [Effexor*] 150 mg PO DAILY 11/11/19 Acyclovir 400 mg PO DAILY 11/01/20 Cyclobenzaprine [Flexeril*] 10 mg PO BID 11/01/20 predniSONE [Prednisone] 2.5 mg PO DAILY #7 tablet 05/31/21 Aspirin [Ecotrin 81 MG] 162 mg PO DAILY #60 tab 04/24/23 Atorvastatin Calcium [Lipitor] 40 mg PO BEDTIME #30 tab 04/24/23 Clopidogrel Bisulfate [Plavix] 75 mg PO DAILY #30 tab 04/24/23 Warfarin Sodium [Coumadin*] 4 mg PO DAILY AT SUPPER #30 tab 04/24/23 Doxepin HCl 100 mg PO BEDTIME 05/14/23 Nitroglycerin 0.4 mg SL PRN PRN 05/14/23 hydrOXYzine HCL [Atarax*] 25 mg PO DAILY 05/14/23 traMADol HCL [Ultram*] 50 mg PO TID PRN 05/14/23 Codeine/APAP [Tylenol #3*] 1 tab PO Q6H PRN #10 tab 05/20/23 New Medications: Codeine/APAP [Tylenol #3*] 1 tab PO Q6H PRN #10 tab PRN Reason: Pain Scale 5-7 (Moderate) Physician Discharge Instructions: Patient presented with weakness, dyspnea on exertion, nausea, palpitations, dizziness, and syncope. Troponins were elevated. EKG without stemi criteria. INR was noted to be 5.5 on admission; dropped to 1.09. On further review of ER notes patient received IM Vit K in ED - likely culprit; INR dropped to subtherapeutic levels. Cardiology was consulted. She was started on a IV heparin bridge and coumadin restarted. INR continued to improve throughout hospitalization. INR on discharge: 2.56 On admission patients hgb was noted to be 6.8. Initially suspected secondary to blood loss. GI was consulted. EGD was performed on 05/14 with noted mild gastritis. no other findings / active bleed seen. Patient without any obvious bleeding, no melena, no hematochezia. Iron studies consistent with iron deficiency anemia. Suspect multifactorial etiology secondary to supratherapeutic INR / on plavix due to recent PCI. Patient receieved 3 uPRBC throughout hospitalization (05/13, 05/14, and 05/15). Patients hgb stabilized and remained in low 8s for rest of her hospitalization. No further transfusions needed since 05/15. hgb on discharge: 8.2. Recommend repeat blood work with PCP in ~1 week to monitor hemoglobin. In regards to knee pain: xray R knee (05/14): no evidence of fracture. Anterior subluxation of the distal femur relative to the tibia, suggesting a degree of instability. No other arthroplasty complications CT knee was negative for acute fracture. Recommend follow up with PCP and consideration for Ortho follow up if pain persists. In regards to foot pain: General surgery was consulted. Patient underwent Excisional debridement of left foot necrotic ulcer at bedside with Dr. Seth. (05/18) Continue to follow up at wound healing center for continued care. Patients blood pressure has been low to low-normal during hospitalization off her home metoprolol. Recommend Holding metoprolol for now. Advised to check blood pressure daily. Once blood pressure is consistently > 110 systolic can restart metoprolol. Can discuss with PCP/cardiology if adjustments are needed. Medication: iron supplementation hold metoprolol tylenol #3 avoid ibuprofen/aleve/advil; if needing to take something for pain recommend tylenol Follow up: PCP 3-5 days Cardiology 1-2 weeks [facility] for continued care of foot ulcer Followup: NONE,NONE [Primary Care Provider] - Time spent managing pt's care (in minutes): 45
== END 2023-05-20 17:54 | disposition home or self-care (01) | DRG 356 ==
LOC: ER 11:35 → ERHOLD 16:22 → 2ND 20:41
PROVIDERS: ADMIT Internal Medicine; ATTEND Hospitalist
PROC: 0DJ08ZZ Inspection of Upper Intestinal Tract, Via Natural or Artificial Opening Endoscopic (ICD-10-PCS; 2023-05-14)
PROC: 30233N1 Transfusion of Nonautologous Red Blood Cells into Peripheral Vein, Percutaneous Approach (ICD-10-PCS; 2023-05-14)
PROC: 0JBR0ZZ Excision of Left Foot Subcutaneous Tissue and Fascia, Open Approach (ICD-10-PCS; principal; 2023-05-17)
DX: K29.70 Gastritis, unspecified, without bleeding (principal); I21.4 Non-ST elevation (NSTEMI) myocardial infarction; I96 Gangrene, not elsewhere classified; D50.0 Iron deficiency anemia secondary to blood loss (chronic); L89.899 Pressure ulcer of other site, unspecified stage; E03.9 Hypothyroidism, unspecified; M19.90 Unspecified osteoarthritis, unspecified site; M32.9 Systemic lupus erythematosus, unspecified; G89.29 Other chronic pain; K29.50 Unspecified chronic gastritis without bleeding; K21.9 Gastro-esophageal reflux disease without esophagitis; L97.529 Non-pressure chronic ulcer of other part of left foot with unspecified severity; L08.9 Local infection of the skin and subcutaneous tissue, unspecified; I25.10 Atherosclerotic heart disease of native coronary artery without angina pectoris; I25.2 Old myocardial infarction; R09.02 Hypoxemia; R06.03 Acute respiratory distress; Z95.5 Presence of coronary angioplasty implant and graft; Z88.6 Allergy status to analgesic agent; Z88.5 Allergy status to narcotic agent; Z88.0 Allergy status to penicillin; Z88.8 Allergy status to other drugs, medicaments and biological substances; Z95.2 Presence of prosthetic heart valve; Z60.2 Problems related to living alone; Z79.52 Long term (current) use of systemic steroids; Z79.01 Long term (current) use of anticoagulants; Z79.82 Long term (current) use of aspirin; Z98.51 Tubal ligation status; Z86.73 Personal history of transient ischemic attack (TIA), and cerebral infarction without residual deficits; Z91.048 Other nonmedicinal substance allergy status; Z96.643 Presence of artificial hip joint, bilateral; Z79.890 Hormone replacement therapy; Z79.899 Other long term (current) drug therapy; Z89.422 Acquired absence of other left toe(s); Z96.651 Presence of right artificial knee joint; Z89.432 Acquired absence of left foot; M25.561 Pain in right knee; W19.XXXA Unspecified fall, initial encounter; Y93.9 Activity, unspecified; Y92.019 Unspecified place in single-family (private) house as the place of occurrence of the external cause; Y99.9 Unspecified external cause status
CPT/HCPCS: 36415; 36430; 71045; 73700; 80048; 80053; 82728; 83010; 83036; 83540; 83615; 83735; 83880; 84100; 84132; 84443; 84466; 84484; 85014; 85018; 85025; 85027; 85044; 85379; 85610; 85730; 86850; 86900; 86901; 86920; 93005; 96365; 96366; 96372; 96375; 97116; 97161; 99285; C9113; J2001; J2405; J2704; J2916; J3430; J3475; J7040; J7050; J7120; J7512; P9016

== ENCOUNTER 2023-06-11 17:02 | Inpatient (IN) | payer OTHER ==
--- OUTSIDE RECORDS SUMMARY | 2023-06-11 17:09 | XMS REPORT | Continuity of Care Document ---
:[address] 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 [employer] (MEDICARE [id number] 2023 REPLACEMENT PPO) 00:00:00 [employer] MEDICARE HMO [id number] POS 00:00:00 Problems Condition Condition Condition [...] [facility] A[facility] Hydromor Drug Active Nausea And [facility] phone Allergy Vomiting 1-05 [facility] (Bulk) 00:[facility]: Medical 00 Center Morpholi Drug Active Nausea And [facility] ne Allergy Vomiting 1-05 [facility] Analogue 00:00: Medical s 00 Center Penicill Propensi Active [facility] [...] Propensi Active Method i phone ty to [address] st adverse 00:00: Hospita reaction 00 l s to drug Meperidi Propensi Active Method i ne ty to 2 st adverse 00:00: Hospita reaction 00 l s to drug Methadon Propensi Active Method i e ty to 2-27 st adverse 00:00: Hospita reaction 00 l [...] Date Stop Date Source Maternal grandmother Cancer Meth [facility] Social History Social Habit Start Date Stop Date Quantity Comments Source Gender identity [facility] Sexual orientation Method [facility] Alcohol intake 2020-08-19 2020-08-19 [facility] (finding) Tobacco use and 2019-01-08 2019-01-[address] [facility] [address] [facility] exposure 00:00:00 00:00:00 tobacco non-user [facility] Tobacco Comment 2019-01-08 2019-01-[address] 00:00:00 00:00:00 [facility] Cigarettes smoked 2019-01-08 2019-01-[address] [facility] current (pack per 00:00:00 00:00:00 Medical Center day) - Reported Cigarette 2019-01-08 2019-01-[address] [facility] pack-years 00:00:00 00:00:00 Medical Center History of tobacco 2019-01-[address] [facility] use 00:00:00 [facility] Center History of Social 2016-04-19 2016-04-[address] function 00:00:00 00:00:00 [facility] Sex Assigned At [address] 00:00[facility]00 [facility]00 [facility] Center Smoking Status Start Date Stop Date Source Smokes tobacco daily 2019-01-08 00:00:[address] [facility] Occasional tobacco smoker 2017-02-08 00:00:00 [facility] Medications Ordered Filled Start Stop Current Ordering Indication Dosage Frequency Signature Comments Components Source Medication Medication Date Date Medication? Clinician (SIG) Name Name levothyroxi Yes 125ug Take [address] ne 1-22 mcg by [facility] (SYNTHROID, 18:01: mouth Medic al LEVOTHROID) 10 Every Center 125 MCG morning on tablet an empty stomach. predniSONE Yes 2.5mg QD Take 2.[address] (DELTASONE) 1-22 mg by [facility] 2.5 MG 18:01: mouth Medical tablet 10 daily. [place] metoprolol Yes 50mg QD Take 50 mg [...] needed for Sleep . gabapentin Yes 300mg Q.[id number] Take [address] (NEURONTIN) 1-22 [id number] mg by L ukes 300 MG 18:01: [...] MG 18:01: mouth Medical tablet 10 daily. [place] metoprolol Yes 50mg QD Take [address] (TOPROL-XL) 1-22 by mouth Luke [facility] 25 MG 24 hr 18:01: daily . Med ical tablet 10 [place] amitriptyli Yes 50mg Q.5D Take 50 mg [...] needed for Sleep . gabapentin Yes 300mg Q.[id number] Take [address] (NEURONTIN) 1-22 [id number] mg by L ukes 300 MG 18:01: [...] MG 18:01: mouth Medical tablet 10 daily. [place] metoprolol Yes 50mg QD Take 50 mg [...] daily as needed for Sleep . gabapentin 0 Yes 300mg Q.[id number] Take [address] (NEURONTIN) 1-22 [id number] mg by L ukes 300 MG 18:01: [...] MG 18:01: mouth Medical tablet 10 daily. [place] metoprolol Yes 50mg QD Take [address] (TOPROL-XL) 1-22 by mouth Luke s 25 MG 24 hr 18:01: daily . Med ical tablet 10 [place] amitriptyli Yes 50mg Q.5D Take 50 mg [...] daily as needed for Sleep . gabapentin 0 Yes 300mg Q.[id number] Take [address] (NEURONTIN) 1-22 [id number] mg by L ukes 300 MG 18:01: 3D mouth 3 Medical capsule 10 (three) Center times daily. cyanocobala Yes 1000ug Inject [facility] min 1-22 1,000 mcg [facility] (VITAMIN 18:01: intramuscu Med ical B-12) 1,000 10 larly Center mcg/mL every 30 injection (thirty) days. predniSONE Yes 2.5mg QD Take 2.5 CH [...] needed for Sleep . gabapentin Yes 300mg Q.[id number] Take [address] (NEURONTIN) 1-22 [id number] mg by L ukes 300 MG 18:01: [...] instructed Medical ointment 00 . Center mupirocin 2021-[address] (BACTROBAN) 1-19 daily as Luke s 2 % 00:00: instructed Medical ointment 00 . [place] mupirocin Yes Apply [facility] (BACTROBAN) 1-19 daily as Luke s 2 % 00:00: instructed Medical ointment 00 . [place] mupirocin 2020- Yes Apply [facility] (BACTROBAN) 1-19 daily as Luke s 2 % 00:00: instructed Medical ointment 00 . [place] mupirocin Yes Apply [facility] (BACTROBAN) 1-19 daily as Luke s 2 % 00:00: instructed Medical ointment 00 . [place] cyclobenzap Yes 10mg Q.[id number] Take 10 mg Methodi rine 7-10 [id number] [address] [facility] [address] [facility] (FLEXERIL) 17:14: 3D (three) Hosp [facility] 10 MG 27 times a l tablet day as needed for muscle spasms. MULTIVITAMI Yes Take by Met hodi N ORAL 7-[address] 17:14: Hospita 27 l ascorbic 2017-0 Yes 100mg QD Take 100 Meth michael acid, 7-[address] vitamin C, 17:14: mouth Hospit a (vitamin C) 27 daily. l 100 MG tablet amitriptyli 2016-0 Yes 75mg QD Take 75 mg Methodi ne (ELAVIL) 7-[address] 100 MG 17:14: nightly. Hospita tablet 27 l cyclobenzap 2016- Yes 10mg Q.[id number] Take 10 mg Methodi rine 7-[id number] [facility] [address] (FLEXERIL) 17:14: 3D (three) Hosp [facility] 10 MG 27 times a l tablet day as needed for muscle spasms. MULTIVITAMI Yes Take by Met hodi N ORAL 7-[address] 17:14: Hospita 27 l ascorbic 2017-0 Yes 100mg QD Take 100 Meth michael acid, 7-[address] vitamin C, 17:14: mouth Hospit a (vitamin C) 27 daily. l 100 MG tablet amitriptyli 2017-0 Yes 75mg QD Take 75 mg Methodi ne (ELAVIL) 7-[address] 100 MG 17:14: nightly. Hospita tablet 27 l cyclobenzap 2017-0 Yes 10mg Q.[id number] Take 10 mg Methodi rine 7-10 [id number] [facility] [address] (FLEXERIL) 17:14: 3D (three) Hosp [facility] 10 MG 27 times a l tablet day as needed for muscle spasms. MULTIVITAMI 2017-0 Yes Take by Met hodi N ORAL 7-[address] 17:14: Hospita 27 l ascorbic 2017-0 Yes 100mg QD Take 100 Meth michael acid, 7-[address] vitamin C, 17:14: mouth Hospit a (vitamin C) 27 daily. l 100 MG tablet amitriptyli 2017-0 Yes 75mg QD Take 75 mg Methodi ne (ELAVIL) 7-[address] 100 MG 17:14: nightly. Hospita tablet 27 l cyclobenzap 2017-0 Yes 10mg Q.[id number] Take 10 mg Methodi rine 7-10 [id number] [facility] [address] (FLEXERIL) 17:14: 3D (three) Hosp [facility] 10 MG 27 times a l tablet day as needed for muscle spasms. MULTIVITAMI 0 Yes Take by Met hodi N ORAL 7-[address] 17:14: Hospita 27 l cyclobenzap 2017-0 Yes 10mg Q.[id number] Take 10 mg Methodi rine 7-[address] [id number] [facility] [address] (FLEXERIL) 17:14: 3D (three) Hosp [facility] 10 MG 27 times a l tablet day as needed for muscle spasms. MULTIVITAMI 0 Yes Take by Met hodi N ORAL 7-[address] 17:14: Hospita 27 l ascorbic 2017-0 Yes 100mg QD Take 100 Meth michael acid, 7-[address] vitamin C, 17:14: mouth Hospit a (vitamin C) 27 daily. l 100 MG tablet ascorbic 2017-0 Yes 100mg QD Take 100 Meth michael acid, 7-[address] vitamin C, 17:14: mouth Hospit a (vitamin C) 27 daily. l 100 MG tablet amitriptyli 2017-0 Yes 75mg QD Take 75 mg Methodi ne (ELAVIL) 7-[address] 100 MG 17:14: nightly. Hospita tablet 27 l amitriptyli 2017-0 Yes 75mg QD Take 75 mg Methodi ne (ELAVIL) 7-[address] 100 MG 17:14: nightly. Hospita tablet 27 l gabapentin 2017-0 Yes 200mg QD 200 mg Meth michael (NEURONTIN) 6-[address] 400 mg 00:00: Hospita capsule 00 l topiramate 2017-0 Yes Methodi (TOPAMAX) 6-14 st 50 MG 00:00: Hospita tablet 00 l gabapentin 2017-0 Yes 200mg QD 200 mg Meth michael (NEURONTIN) 6-[address] 400 mg 00:00: Hospita capsule 00 l topiramate 2017-0 Yes [facility] (TOPAMAX) 6-14 st 50 MG 00:00: Hospita tablet 00 l gabapentin 2017-0 Yes 200mg QD 200 mg Meth michael (NEURONTIN) 6-[address] 400 mg 00:00: Hospita capsule 00 l topiramate 2017-0 Yes [facility] (TOPAMAX) 6-14 st 50 MG 00:00: Hospita tablet 00 l gabapentin 2017-0 Yes 200mg QD 200 mg Meth michael (NEURONTIN) 6-[address] 400 mg 00:00: Hospita capsule 00 l topiramate 2017-0 Yes [facility] (TOPAMAX) 6-14 st 50 MG 00:00: Hospita tablet 00 l gabapentin 2017-0 Yes 200mg QD 200 mg Meth michael (NEURONTIN) 6-[address] 400 mg 00:00: Hospita capsule 00 l topiramate 2017-0 Yes [facility] (TOPAMAX) 6-14 st 50 MG 00:00: Hospita tablet 00 l predniSONE 2017- Yes 2.5mg QD Take 2.5 [facility] (DELTASONE) 6-[address] 2.5 mg 00:00: mouth Hospita tablet 00 daily. l predniSONE 2017-0 Yes 2.5mg QD Take 2.5 [facility] (DELTASONE) 6-[address] 2.5 mg 00:00: mouth Hospita tablet 00 daily. l predniSONE 2017-0 Yes 2.5mg QD Take 2.5 [facility] (DELTASONE) 6-[address] 2.5 mg 00:00: mouth Hospita tablet 00 daily. l predniSONE 2017-0 Yes 2.5mg QD Take 2.5 [facility] (DELTASONE) 6-[address] 2.5 mg 00:00: mouth Hospita tablet 00 daily. l predniSONE 2017- Yes 2.5mg QD Take 2.5 Me thodi [...] 00 l mupirocin Yes Methodi (BACTROBAN) 12-25 2 % 00:00: Hospita ointment 00 l mupirocin Yes [facility] (BACTROBAN) 12-25 st 2 % 00:00: Hospita ointment 00 l metoprolol Yes [facility] succinate 12-05 st XL 00:00: Hospita (TOPROL-XL) 00 l 50 mg 24 hr tablet metoprolol Yes [facility] succinate 12-05 st XL 00:00: Hospita (TOPROL-XL) 00 l 50 mg 24 hr tablet metoprolol Yes [facility]i succinate 12-05 st XL 00:00: Hospita (TOPROL-XL) 00 l 50 mg 24 hr tablet metoprolol Yes [facility]i succinate 12-05 st XL 00:00: Hospita (TOPROL-XL) 00 l 50 mg 24 hr tablet metoprolol Yes [facility]i succinate 12-05 st XL 00:00: Hospita (TOPROL-XL) 00 l [...] capsule 00 TWICE A l DAY omeprazole 0 Yes TAKE ONE [facility] (PriLOSEC) 4-24 [...] ce Name Immunization Name Pneumococcal 2016-04-19 Completed [facility] Polysaccharide 00:00:00 Hospital FLUZONE QUAD 2016-04-19 Completed [facility] 00:00:00 [facility] Influenza, 2015-04-05 Completed [facility] Quadrivalent 00:00:00 Hospital Pneumococcal 2015-04-05 Completed [facility] Polysaccharide 00:00:00 Hospital Influenza, Unknown Completed [facility] Quadrivalent [facility] Pneumococcal Unknown Completed [facility] Polysaccharide [facility] Pneumococcal Unknown Completed [facility] Polysaccharide [facility] FLUZONE QUAD Unknown Completed [facility] Influenza, Unknown Completed [facility] Quadrivalent [facility] Pneumococcal Unknown Completed [facility] Polysaccharide [facility] Pneumococcal Unknown Completed [facility] Polysaccharide [facility] FLUZONE QUAD Unknown Completed [facility] Influenza, Unknown Completed [facility] Quadrivalent [facility] Pneumococcal Unknown Completed [facility] Polysaccharide [facility] Pneumococcal Unknown Completed [facility] Polysaccharide [facility] FLUZONE QUAD Unknown Completed [facility] Influenza, Unknown Completed [facility] Quadrivalent [facility] Pneumococcal Unknown Completed [facility] Polysaccharide [facility] Pneumococcal Unknown Completed [facility] Polysaccharide [facility] FLUZONE QUAD Unknown Completed [facility] Vital Signs Vital Name Observation Time [...] colon Medical Ce nter (procedure) [code = 050880899] Future Scheduled 2029-01-09 Screening for malignant [facility] Test 00:00:00 neoplasm of colon Medical Ce nter (procedure) [code = 120039443] Future Scheduled 2029-01-09 Screening for malignant [facility] Test 00:00:00 neoplasm of colon Medical Ce nter (procedure) [code = 223171728] Future Scheduled 2029-01-09 Screening for malignant [facility] Test 00:00:00 neoplasm of colon Medical Ce nter (procedure) [code = 875527430] Future Scheduled 2029-01-09 Screening for malignant [facility] Test 00:00:00 neoplasm of colon Medical Ce nter (procedure) [code = 399313701] Future Scheduled 2029-01-09 Screening for malignant [facility] Test 00:00:00 neoplasm of colon Medical Ce nter (procedure) [code = 781692200] Future Scheduled 2029-01-09 Screening for malignant [facility] Test 00:00:00 neoplasm of colon Medical Ce nter (procedure) [code = 670793821] Future Scheduled 2029-01-09 Screening for malignant [facility] Test 00:00:00 neoplasm of colon Medical Ce nter (procedure) [code = 450920068] Future Scheduled 2029-01-09 Screening for malignant [facility] Test 00:00:00 neoplasm of colon Medical Ce nter (procedure) [code = 619261746] Future Scheduled 2029-01-09 Screening for malignant [facility] Test 00:00:00 neoplasm of colon Medical Ce nter (procedure) [code = 920999675] Future Scheduled 2023-05-27 Screening for malignant [facility] 16:34:14 neoplasm of colon Hospital (procedure) [code = 305208081] Future Scheduled 2023-05-27 Screening for malignant [facility] 16:34:14 neoplasm of colon Hospital (procedure) [code = 714053536] Future Scheduled 2023-05-27 Screening for malignant [facility] 16:34:14 neoplasm of colon Hospital (procedure) [code = 204899114] Future Scheduled 2023-05-27 COVID-19 VACCINE (#1) [facility] 16:34:14 [code = COVID-19 VACCINE Hos pital (#1)] Future Scheduled 2023-05-27 Screening for malignant [facility] 16:34:14 neoplasm of colon Hospital (procedure) [code = 021064025] Future Scheduled 2023-05-27 Screening for malignant [facility] 16:34:14 neoplasm of colon Hospital (procedure) [code = 630063238] Future Scheduled 2023-05-27 SHINGLES VACCINES (1 of [facility] 16:34:14 2) [code = SHINGLES Hospital VACCINES (1 of 2)] Future Scheduled 2023-05-27 BREAST CANCER SCREENING [facility] 16:34:14 [code = BREAST CANCER Hospit al SCREENING] Future Scheduled 2023-05-27 Screening for malignant [facility] 16:34:14 neoplasm of cervix Hospital (procedure) [code = 608241388] Future Scheduled 2023-05-27 INFLUENZA VACCINE (#1) [facility] Test 16:34:14 [code = INFLUENZA VACCINE Ho spital (#1)] Future Scheduled 2023-05-27 Screening for malignant [facility] 16:34:14 neoplasm of colon Hospital (procedure) [code = 544605387] Future Scheduled 2023-05-27 Screening for malignant [facility] 16:34:14 neoplasm of colon Hospital (procedure) [code = 706759218] Future Scheduled 2023-05-27 Screening for malignant [facility] 16:34:14 neoplasm of colon Hospital (procedure) [code = 056451138] Future Scheduled 2023-05-27 COVID-19 VACCINE (#1) [facility] 16:34:14 [code = COVID-19 VACCINE Hos pital (#1)] Future Scheduled 2023-05-27 Screening for malignant [facility] 16:34:14 neoplasm of colon Hospital (procedure) [code = 457155870] Future Scheduled 2023-05-27 Screening for malignant [facility] 16:34:14 neoplasm of colon Hospital (procedure) [code = 276256548] Future Scheduled 2023-05-27 SHINGLES VACCINES (1 of [facility] 16:34:14 2) [code = SHINGLES Hospital VACCINES (1 of 2)] Future Scheduled 2023-05-27 BREAST CANCER SCREENING [facility] 16:34:14 [code = BREAST CANCER Hospit al SCREENING] Future Scheduled 2023-05-27 Screening for malignant [facility] 16:34:14 neoplasm of cervix Hospital (procedure) [code = 542952151] Future Scheduled 2023-05-27 INFLUENZA VACCINE (#1) [facility] Test 16:34:14 [code = INFLUENZA VACCINE Ho spital (#1)] Future Scheduled 2023-05-27 Screening for malignant [facility] 16:34:14 neoplasm of colon Hospital (procedure) [code = 140534079] Future Scheduled 2023-05-27 Screening for malignant [facility] 16:34:14 neoplasm of colon Hospital (procedure) [code = 770383386] Future Scheduled 2023-05-27 Screening for malignant [facility] 16:34:14 neoplasm of colon Hospital (procedure) [code = 626645124] Future Scheduled 2023-05-27 COVID-19 VACCINE (#1) [facility] 16:34:14 [code = COVID-19 VACCINE Hos pital (#1)] Future Scheduled 2023-05-27 Screening for malignant [facility] 16:34:14 neoplasm of colon Hospital (procedure) [code = 405222994] Future Scheduled 2023-05-27 Screening for malignant [facility] 16:34:14 neoplasm of colon Hospital (procedure) [code = 762262577] Future Scheduled 2023-05-27 SHINGLES VACCINES (1 of [facility] 16:34:14 2) [code = SHINGLES Hospital VACCINES (1 of 2)] Future Scheduled 2023-05-27 BREAST CANCER SCREENING [facility] 16:34:14 [code = BREAST CANCER Hospit al SCREENING] Future Scheduled 2023-05-27 Screening for malignant [facility] 16:34:14 neoplasm of cervix Hospital (procedure) [code = 868783570] Future Scheduled 2023-05-27 INFLUENZA VACCINE (#1) [facility] Test 16:34:14 [code = INFLUENZA VACCINE Ho spital (#1)] Future Scheduled 2023-04-05 Screening for malignant [facility] 17:17:24 neoplasm of colon Hospital (procedure) [code = 055680572] Future Scheduled 2023-04-05 Screening for malignant [facility] 17:17:24 neoplasm of colon Hospital (procedure) [code = 669873997] Future Scheduled 2023-04-05 Screening for malignant [facility] 17:17:24 neoplasm of colon Hospital (procedure) [code = 825413074] Future Scheduled 2023-04-05 COVID-19 VACCINE (#1) [facility] 17:17:24 [code = COVID-19 VACCINE Hos pital (#1)] Future Scheduled 2023-04-05 Screening for malignant [facility] 17:17:24 neoplasm of colon Hospital (procedure) [code = 840678289] Future Scheduled 2023-04-05 Screening for malignant [facility] 17:17:24 neoplasm of colon Hospital (procedure) [code = 876055610] Future Scheduled 2023-04-05 SHINGLES VACCINES (1 of [facility] 17:17:24 2) [code = SHINGLES Hospital VACCINES (1 of 2)] Future Scheduled 2023-04-05 BREAST CANCER SCREENING [facility] 17:17:24 [code = BREAST CANCER Hospit al SCREENING] Future Scheduled 2023-04-05 Screening for malignant [facility] 17:17:24 neoplasm of cervix Hospital (procedure) [code = 183326251] Future Scheduled 2023-04-05 INFLUENZA VACCINE (#1) [facility] Test 17:17:24 [code = INFLUENZA VACCINE Ho spital (#1)] Future Scheduled 2023-04-05 Screening for malignant [facility] 17:17:24 neoplasm of colon Hospital (procedure) [code = 245578368] Future Scheduled 2023-04-05 Screening for malignant [facility] 17:17:24 neoplasm of colon Hospital (procedure) [code = 336772656] Future Scheduled 2023-04-05 Screening for malignant [facility] 17:17:24 neoplasm of colon Hospital (procedure) [code = 324517957] Future Scheduled 2023-04-05 COVID-19 VACCINE (#1) [facility] 17:17:24 [code = COVID-19 VACCINE Hos pital (#1)] Future Scheduled 2023-04-05 Screening for malignant [facility] 17:17:24 neoplasm of colon Hospital (procedure) [code = 030953861] Future Scheduled 2023-04-05 Screening for malignant [facility] 17:17:24 neoplasm of colon Hospital (procedure) [code = 937980922] Future Scheduled 2023-04-05 SHINGLES VACCINES (1 of [facility] 17:17:24 2) [code = SHINGLES Hospital VACCINES (1 of 2)] Future Scheduled 2023-04-05 BREAST CANCER SCREENING [facility] 17:17:24 [code = BREAST CANCER Hospit al SCREENING] Future Scheduled 2023-04-05 Screening for malignant [facility] 17:17:24 neoplasm of cervix Hospital (procedure) [code = 063046966] Future Scheduled 2023-04-05 INFLUENZA VACCINE (#1) M [...] colon Medical Ce nter (procedure) [code = 691104624] Future Scheduled 2021-08-[address] [facility] 00:00:00 Counseling and Screening Med ical Center (12+) [code = Tobacco Cessation Counseling and Screening (12+)] Future Scheduled 2021-08-10 Screening for malignant [facility] 00:00:00 neoplasm of colon Medical Ce nter (procedure) [code = 088651837] Future Scheduled 2021-08-[address] [facility] 00:00:00 Counseling and Screening Med ical Center (12+) [code = Tobacco Cessation Counseling and Screening (12+)] Future Scheduled 2021-08-10 Screening for malignant [facility] 00:00:00 neoplasm of colon Medical Ce nter (procedure) [code = 409339913] Future Scheduled 2021-08-[address] [facility] 00:00:00 Counseling and Screening Med ical Center (12+) [code = Tobacco Cessation Counseling and Screening (12+)] Future Scheduled 2021-08-10 Screening for malignant [facility] 00:00:00 neoplasm of colon Medical Ce nter (procedure) [code = 303607990] Future Scheduled 2021-08-[address] [facility] 00:00:00 Counseling and Screening Med ical Center (12+) [code = Tobacco Cessation Counseling and Screening (12+)] Future Scheduled 2021-08-10 Screening for malignant [facility] 00:00:00 neoplasm of colon Medical Ce nter (procedure) [code = 221011479] Future Scheduled 2021-08-[address] [...] 00:00:00 (YEAR 2 or FIRST YEAR if [facility] ical Center no IPPE) [code = MEDICARE ANNUAL WELLNESS (YEAR 2 or FIRST YEAR if no IPPE)] Future Scheduled 2019-08-06 MED[address]NUAL WELLNESS [facility] 00:00:00 (YEAR 2 or FIRST YEAR if [facility] Center no IPPE) [code = MEDICARE ANNUAL WELLNESS (YEAR 2 or FIRST YEAR if no IPPE)] Future Scheduled 2018-10-21 Lipid panel (procedure) [facility] 00:00:00 [code = 53845303] Medical Ce nter Future Scheduled 2018-10-21 Lipid panel (procedure) [facility] 00:00:00 [code = 26243639] Medical Ce nter Future Scheduled 2018-10-21 Lipid panel (procedure) [facility] 00:00:00 [code = 58541336] Medical Ce nter Future Scheduled 2018-10-21 Lipid panel (procedure) [facility] 00:00:00 [code = 93384927] Medical Ce nter Future Scheduled 2018-10-21 Lipid panel (procedure) [facility] 00:00:00 [code = 68252683] Medical Ce nter Future Scheduled 2017-04-19 Pneumococcal [...] cervix Medical C enter (procedure) [code = 178581558] Future Scheduled 1980 Screening for malignant [facility] 00:00:00 neoplasm of cervix Medical C enter (procedure) [code = 560793212] Future Scheduled 1980 Screening for malignant [facility] 00:00:00 neoplasm of cervix Medical C enter (procedure) [code = 338316697] Future Scheduled 1980 Screening for malignant [facility] 00:00:00 neoplasm of cervix Medical C enter (procedure) [code = 156911568] Future Scheduled 1980 Screening for malignant [facility] 00:00:00 neoplasm of cervix Medical C enter (procedure) [code = 451007142] Future Scheduled 1978 DTAP/TDAP/TD VACCINES (1 [facility] [...] screening Medical Cent er (procedure) [code = 232666187] Future Scheduled [address] [facility] virus screening Medical Cent er (procedure) [code = 771419745] Future Scheduled [address] [facility] 00:[facility]:00 virus screening Medical Cent er (procedure) [code = 666559357] Future Scheduled [address] [facility] 00:00:00 virus screening Medical Cent er (procedure) [code = 324512545] Future Scheduled [address] [facility] 00:00:00 virus screening Medical Cent er (procedure) [code = 931868270] Future Scheduled 1959 COVID-19 VACCINE (#1) CH [...] breast Medical C enter (procedure) [code = 398160788] Future Scheduled 1959 CT Colonography (combo) [facility] 00:00:00 [code = CT [facility] ([facility])] Future Scheduled 1959 Screening for malignant [facility] 00:00:00 neoplasm of colon Medical Ce nter (procedure) [code = 070712406] Future Scheduled 1960 Sigmoidoscopy [code = [facility]] Medical Cente r Future Scheduled 1959 Screening for malignant [facility] 00:00:00 neoplasm of breast Medical C enter (procedure) [code = 914627776] Future Scheduled 1959 CT Colonography (combo) [facility] 00:00:00 [code = CT [facility] (combo)] Future Scheduled 1959 Screening for malignant [facility] 00:00:00 neoplasm of colon Medical Ce nter (procedure) [code = 157557090] Future Scheduled 1960 Sigmoidoscopy [code = [facility] S[facility]] Medical Cente r Future Scheduled 1959 Screening for malignant [facility] 00:00:00 neoplasm of breast Medical C enter (procedure) [code = 413699951] Future Scheduled 1959 CT Colonography (combo) [facility] 00:00:00 [code = CT [facility] (combo)] Future Scheduled 1959 Screening for malignant [facility] 00:00:00 neoplasm of colon Medical Ce nter (procedure) [code = 261892448] Future Scheduled 1960 Sigmoidoscopy [code = [facility] Future Scheduled 1959 Screening for malignant [facility] 00:00:00 neoplasm of breast Medical C enter (procedure) [code = 255844071] Future Scheduled 1959 CT Colonography (combo) [facility] 00:00:00 [code = CT [facility] (combo)] Future Scheduled 1959 Screening for malignant [facility] 00:00:00 neoplasm of colon Medical Ce nter (procedure) [code = 306208361] Future Scheduled 1960 Sigmoidoscopy [code = [facility] 00:[facility] Sigmoidoscopy] Medical Cent[facility] Future Scheduled 1959 Screening for malignant [facility] 00:00:00 neoplasm of breast Medical C enter (procedure) [code = 547203243] Future Scheduled 1959 CT Colonography (combo) [facility] 00:00:00 [code = CT [facility] (combo)] Future Scheduled 1959 Screening for malignant [facility] 00:00:00 neoplasm of colon Medical Ce nter (procedure) [code = 761322921] Future Scheduled 1960 Sigmoidoscopy [code = [facility] 00:[facility] Sigmoidoscopy] Medical [place] [facility] Encounters Start End Encounter Admission Attending Care Care Encounter Source Date/Time Date/Time Type Type Clinicians Facility Department ID 2023-03-25 2023-03-25 Outpatient [facility]_ PRIV PRIV [id number] [facility] 00:00:00 00:00:00 Robert_T [id number] Medica l 2020-08-08 2020-08-08 Emergency ER [facility] Emergency [id number] 1089 [facility] 22:10:00 22:10:00 Results Test Description Test Time Test Comments Results Result Comments Source VANCOMYCIN LEVEL, TROUGH 2020-08-26 11:37:00 Test Item Value Reference Range Interpretation Comme nts VANCOMYCIN TROUGH (BEAKER) (test code = 522) 15.8 ug/mL 10.0-20.0 Special Education Classroom Aide ID - CAROLYNN CPROTHROMBIN TIME/[id number] 04:41:00 Test Item Value Reference Range Interpretation [...] for patients wiht mechanical heart valves.While on warfarin.[id number] 04:00:00 Test Item Value Reference Range Interpretation Comments MAGNESIUM (BEAKER) 2.0 mg/dL 1.6-2.6 Specimen slightly (test code = 627) hemolyzed Special Education Classroom Aide ID - RISHI WBASIC METABOLIC [id number] 04:00:00 Test Item Value Reference Range Interpretation [...] S NOT APPLICABLE FOR DIALYSIS PATIEN TS. Special Education Classroom Aide ID - RISHI WC (HEMOGRAM ONLY)2020-08-26 03:21:00 Test Item Value Reference [...] (BEAKER) (test code = 413) BASIC METABOLIC [id number] 08:10:00 Test Item Value Reference Range Interpretation [...] S NOT APPLICABLE FOR DIALYSIS PATIEN TS. Special Education Classroom Aide ID - MIKE [id number] 08:10:00 Test Item Value Reference Range Interpretation Comments MAGNESIUM (BEAKER) (test code = 1.9 mg/dL 1.6-2.6 627) Special Education Classroom Aide ID - MIKE MPROTHROMBIN TIME/[id number] 06:19:00 Test Item Value Reference Range Interpretation [...] (BEAKER) (test code = 413) VANCOMYCIN LEVEL, [id number] 10:41:00 Test Item Value Reference Range Interpretation Comments VANCOMYCIN TROUGH (BEAKER) (test 12.3 ug/mL 10.0-20.0 code = 522) Special Education Classroom Aide ID - LIZZIE FBASIC METABOLIC [id number] 06:40:00 Test Item Value Reference Range Interpretation [...] S NOT APPLICABLE FOR DIALYSIS PATIEN TS. Special Education Classroom Aide ID Dannie MCKEON [id number] 06:40:00 Test Item Value Reference Range Interpretation Comments MAGNESIUM (BEAKER) (test code = 1.8 mg/dL 1.6-2.6 627) Special Education Classroom Aide ID - MIKE MPROTHROMBIN TIME/[id number] 05:59:00 Test Item Value Reference Range Interpretation [...] 0-0 (BEAKER) (test code = 413) BLOOD [id number] 13:00:00 Test Item Value Reference Range Interpretation Comments CULTURE (BEAKER) (test No growth in 5 days code = 1095) BLOOD [id number] 13:00:00 Test Item Value Reference Range Interpretation Comments CULTURE (BEAKER) (test No growth in 5 days code = 1095) BASIC METABOLIC [id number] 08:46:00 Test Item Value Reference Range Interpretation [...] S NOT APPLICABLE FOR DIALYSIS PATIEN TS. Special Education Classroom Aide ID - MIKE [id number] 08:46:00 Test Item Value Reference Range Interpretation Comments MAGNESIUM (BEAKER) (test code = 1.8 mg/dL 1.6-2.6 627) Special Education Classroom Aide ID - MIKE MBLOOD [id number] 08:32:00 Test Item Value Reference Range Interpretation [...] = 1123) positive cocci in clusters SARS-COV2/RT-PCR ([facility])2020-08-23 06:37:00 Test Item Value Reference Range Interpretation Comments SARS-COV2/RT-PCR (test Negative Not Detected, Negative, code = 0378906) See external report for linked test SARS-COV-2 PERFORMING LAB [facility] (test code = 0962775) Negative result for this test determines that [...] of the Act.Fact Sheet for Healthcare Prov iders:https://www.[employer]/sites/default/files/product/documents/Fact_Sheet_HC _Dhpijgzec_Yqmv_TKOG-IyE-8.pdfFact Sheet for Healthcare Patients:https://www.Touch[employer]resolver/sites/default/files/product/docume nts/Citr_Tkflv_Nvizmywt_Ztzy_YWRR-JrG-0.pdfPerforming Laboratory:[facility], [place] [address]UVGHZNJXHPJ TIME/INR 2020-08-23 06:23:00 Test Item Value Reference [...] = 413) RAD, CHEST, 1 VIEW, NON [id number] 14:12:00Reason for exam:->chest painShould this be performed at the bedside?->Yes [facility] 1960 Sex: [...] Moore Verified Date/Time: 08/22/2020 14:12:21 Reading Location: [facility] Radiology Reading Room BASI METABOLIC [id number] 07:19:00 Test Item Value Reference Range Interpretation [...] S NOT APPLICABLE FOR DIALYSIS PATIEN TS. Special Education Classroom Aide ID - DHIRAJ [id number] 07:19:00 Test Item Value Reference Range Interpretation Comments MAGNESIUM (BEAKER) (test code = 1.7 mg/dL 1.6-2.6 627) Special Education Classroom Aide ID - DHIRAJ LPROTHROMBIN TIME/[id number] 05:47:00 Test Item Value Reference Range Interpretation [...] = 413) RAD, CHEST, 1 VIEW, NON [id number] 10:44:00Reason for exam:->PICC LINE PLACEMENTShould this be performed at the bedside?->Yes [facility] 1960 Sex: [...] regional osseous structures are unremarkable. Signed: Delia Powerseport Verified Date/Time: 08/21/2020 10:44:24 Reading Location: [facility] B1 C013T Transitional Reading Room BASIC METABOLIC [id number] 06:32:00 Test Item Value Reference Range Interpretation [...] S NOT APPLICABLE FOR DIALYSIS PATIEN TS. Special Education Classroom Aide ID - PIAYA [id number] 06:32:00 Test Item Value Reference Range Interpretation Comments MAGNESIUM (BEAKER) (test code = 1.7 mg/dL 1.6-2.6 627) Special Education Classroom Aide ID - PIAYA LPROTHROMBIN TIME/[id number] 05:46:00 Test Item Value Reference Range Interpretation [...] 0-0 (BEAKER) (test code = 413) BLOOD [id number] 11:12:00 Test Item Value Reference Range Interpretation [...] gram 1123) positive cocci in clusters BLOOD [id number] 11:10:00 Test Item Value Reference Range Interpretation [...] bottles: gram 1123) positive cocci in clusters [id number] 06:49:00 Test Item Value Reference Range Interpretation Comments PARTIAL THROMBOPLASTIN TIME 66.1 seconds 22.5-36.0 H (BEAKER) (test code = 760) [id number] 05:54:00 Test Item Value Reference Range Interpretation Comments CORTISOL, TOTAL (BEAKER) (test code 1.3 ug/dL 3.7-19.4 L = 2755) Special Education Classroom Aide ID - EDASIVANCOMYCIN LEVEL, [id number] 05:29:00 Test Item Value Reference Range Interpretation Comments VANCOMYCIN RANDOM (BEAKER) (test 11.5 ug/mL code = 523) Reference Range: No NormalsOperator ID - MIKE [id number] 04:51:00 Test Item Value Reference Range Interpretation Comments PARTIAL THROMBOPLASTIN TIME 171.9 seconds 22.5-36.0 HH (BEAKER) (test code = 760) While on warfarin.BASIC METABOLIC [id number] 04:25:00 Test Item Value Reference Range Interpretation [...] S NOT APPLICABLE FOR DIALYSIS PATIEN TS. Special Education Classroom Aide ID - EDASIPROTHROMBIN TIME/[id number] 04:17:00 Test Item Value Reference Range Interpretation [...] for patients wiht mechanical heart valves.While on warfarin.[id number] 04:11:00 Test Item Value Reference Range Interpretation Comments MAGNESIUM (BEAKER) (test code = 1.7 mg/dL 1.6-2.6 627) Special Education Classroom Aide ID - EDASICBC (HEMOGRAM ONLY)2020-08-20 03:51:00 Test [...] WBC 0-0 (BEAKER) (test code = 413) [id number] 18:55:00 Test Item Value Reference Range Interpretation Comments PARTIAL THROMBOPLASTIN TIME 60.3 seconds 22.5-36.0 H (BEAKER) (test code = 760) [id number] 11:08:00 Test Item Value Reference Range Interpretation Comments MAGNESIUM (BEAKER) 1.7 mg/dL 1.6-2.6 Specimen slightly (test code = 627) hemolyzed Special Education Classroom Aide ID - EDASIBASIC METABOLIC [id number] 11:08:00 Test Item Value Reference Range Interpretation [...] S NOT APPLICABLE FOR DIALYSIS PATIEN TS. Special Education Classroom Aide ID - EDASIVANCOMYCIN LEVEL, [id number] 11:05:00 Test Item Value Reference Range Interpretation Comments VANCOMYCIN TROUGH (BEAKER) (test 27.4 ug/mL 10.0-20.0 H code = 522) Special Education Classroom Aide ID - [id number] 11:05:00 Test Item Value Reference Range Interpretation Comments PARTIAL THROMBOPLASTIN TIME 62.3 seconds 22.5-36.0 H (BEAKER) (test code = 760) While on warfarin.PROTHROMBIN TIME/[id number] 11:04:00 Test Item Value Reference Range Interpretation [...] WBC 0-0 (BEAKER) (test code = 413) [id number] 22:03:00 Test Item Value Reference Range Interpretation Comments PARTIAL THROMBOPLASTIN TIME 73.4 seconds 22.5-36.0 H (BEAKER) (test code = 760) BASIC METABOLIC [id number] 12:50:00 Test Item Value Reference Range Interpretation [...] S NOT APPLICABLE FOR DIALYSIS PATIEN TS. Special Education Classroom Aide ID - [id number] 12:50:00 Test Item Value Reference Range Interpretation Comments MAGNESIUM (BEAKER) (test code = 1.7 mg/dL 1.6-2.6 627) Special Education Classroom Aide ID - AAHAMIDVANCOMYCIN LEVEL, [id number] 12:49:00 Test Item Value Reference Range Interpretation Comments VANCOMYCIN TROUGH (BEAKER) (test 15.6 ug/mL 10.0-20.0 code = 522) Special Education Classroom Aide ID - [id number] 12:33:00 Test Item Value Reference Range Interpretation Comments PARTIAL THROMBOPLASTIN TIME 76.0 seconds 22.5-36.0 H (BEAKER) (test code = 760) PROTHROMBIN TIME/[id number] 07:04:00 Test Item Value Reference Range Interpretation [...] WBC 0-0 (BEAKER) (test code = 413) [id number] 01:47:00 Test Item Value Reference Range Interpretation Comments PARTIAL THROMBOPLASTIN TIME 37.7 seconds 22.5-36.0 H (BEAKER) (test code = 760) [id number] 22:54:00 Test Item Value Reference Range Interpretation [...] code = 413) URINALYSIS W/ REFLEX URINE [id number] 16:12:00 Test Item Value Reference Range Interpretation [...] = 1584) SOURCE(BEAKER) (test code = 2795) Special Education Classroom Aide ID - [auto]Special Education Classroom Aide ID - [id number] 14:59:00 Test Item Value Reference Range Interpretation Comments PARTIAL THROMBOPLASTIN TIME 85.2 seconds 22.5-36.0 H (BEAKER) (test code = 760) RAD, CHEST, 1 VIEW, NON [id number] 07:41:00Reason for exam:->feverShould this be performed at the bedside?->Yes [facility] 1960 Sex: FFINAL REPORT CLINICAL HISTORY: fever TECHNIQUE: 1 view of the chest. COMPARISON: 08/08/2020 IMPRESSION: There are no focal infiltrates or effusions. The cardiomediastinal silhouette is unchanged poststernotomy. Signed: Marie Lovell Verified Date/Time: 08/17/2020 07:41:21 Reading Location: [facility] Radiology Reading Room CBC (HEMOGRAM [...] 0-0 (BEAKER) (test code = 413) PROTHROMBIN TIME/[id number] 05:40:00 Test Item Value Reference Range Interpretation [...] wiht mechanical heart valves.While on warfarin.COMPREHENSIVE METABOLIC [id number] 00:20:00 Test Item Value Reference Range Interpretation [...] S NOT APPLICABLE FOR DIALYSIS PATIEN TS. Special Education Classroom Aide ID - PIHE [id number] 00:02:00 Test Item Value Reference Range Interpretation Comments PARTIAL THROMBOPLASTIN TIME 93.3 seconds 22.5-36.0 H (BEAKER) (test code = 760) LACTIC ACID, [id number] 23:59:00 Test Item Value Reference Range Interpretation Comments LACTATE BLOOD VENOUS (2) (BEAKER) 1.55 mmol/L 0.50-2.20 (test code = 2872) Special Education Classroom Aide ID Dannie HEARN LCBC W/PLT COUNT & AUTO [id number] 23:53:00 Test Item Value Reference Range Interpretation [...] 0-1 PERCENT (BEAKER) (test code = 2801) [id number] 17:15:00 Test Item Value Reference Range Interpretation Comments ACTIVATED CLOTTING TIME 241 sec : 74 -137 seconds, (BEAKER) (test code = Baseli ne: TESTED AT 441) [facility] [address] [place], [address]: Special Education Classroom Aide/Techni sandee ID = [id number] for RANDELL TOBY ARNETT, DOMENIC [id number] 11:16:00 Test Item Value Reference Range Interpretation Comments PARTIAL THROMBOPLASTIN TIME 80.2 seconds 22.5-36.0 H (BEAKER) (test code = 760) While on warfarin.PROTHROMBIN TIME/[id number] 11:15:00 Test Item Value Reference Range Interpretation [...] heart valves.While on warfarin.MR, SPINE, LUMBAR, WITHOUT [id number] 07:05:00Unlisted Reason for Exam - Click Yes and Enter Reason Below->No [facility] 1960 Sex: [...] MDReport Verified Date/Time: 08/16/2020 07:05:14 Reading Location: [address] Neuro Reading Room [id number] 03:27:00 Test Item Value Reference Range Interpretation [...] 0-0 (BEAKER) (test code = 413) SARS-COV2/RT-PCR ([facility])2020-08-15 20:12:00 Test Item Value Reference Range Interpretation Comments SARS-COV2/RT-PCR (test Negative Not Detected, Negative, code = 7115786) See external report for linked test SARS-COV-2 PERFORMING LAB [facility] (test code = 4934638) Negative result for this test determines that [...] of the Act.Fact Sheet for Healthcare Prov iders:https://www.[employer]/sites/default/files/product/documents/Fact_Sheet_HC _Wrodeearx_Bbzo_JUBG-WdN-7.pdfFact Sheet for Healthcare Patients:https://www.[employer]/sites/default/files/product/docume nts/Dwvu_Xibrv_Mhqgvnyx_Jaze_QTBR-UiW-8.pdfPerforming Laboratory:[place] [address] [place], [place] [id number] 15:32:00 Test Item Value Reference Range Interpretation [...] WBC 0-0 (BEAKER) (test code = 413) [id number] 06:27:00 Test Item Value Reference Range Interpretation Comments PARTIAL THROMBOPLASTIN TIME 95.5 seconds 22.5-36.0 H (BEAKER) (test code = 760) While on warfarin.PROTHROMBIN TIME/[id number] 06:25:00 Test Item Value Reference Range Interpretation [...] WBC 0-0 (BEAKER) (test code = 413) [id number] 20:44:00 Test Item Value Reference Range Interpretation [...] WBC 0-0 (BEAKER) (test code = 413) [id number] 19:10:00 Test Item Value Reference Range Interpretation Comments PARTIAL THROMBOPLASTIN TIME 135.1 seconds 22.5-36.0 H (BEAKER) (test code = 760) [id number] 11:18:00 Test Item Value Reference Range Interpretation Comments PARTIAL THROMBOPLASTIN TIME 101.6 seconds 22.5-36.0 H (BEAKER) (test code = 760) [id number] 09:37:00 Test Item Value Reference Range Interpretation Comments PARTIAL THROMBOPLASTIN TIME > seconds 22.5-36.0 HH (BEAKER) (test code = 760) CT, SPINE, LUMBAR, [id number] 08:35:00Unlisted Reason for Exam - Click Yes and Enter Reason Below->YesUnlisted Reason for Exam->LLE pain evalaute for radiculopathy [facility] 1960 Sex: [...] height loss is present, most conspicuous at L4-J9Vimfdhkvprk images of the spinalcanal demonstrate no acute [...] MDReport Verified Date/Time: 08/14/2020 08:35:08 Reading Location: [address] Neuro Reading Room PROTHROMBIN TIME/[id number] 06:56:00 Test Item Value Reference Range Interpretation [...] WBC 0-0 (BEAKER) (test code = 413) [id number] 23:23:00 Test Item Value Reference Range Interpretation Comments PARTIAL THROMBOPLASTIN TIME 48.5 seconds 22.5-36.0 H (BEAKER) (test code = 760) BASIC METABOLIC [id number] 23:04:00 Test Item Value Reference Range Interpretation [...] S NOT APPLICABLE FOR DIALYSIS PATIEN TS. Special Education Classroom Aide ID - DBPOCT-GLUCOSE [id number] 18:16:00 Test Item Value Reference Range Interpretation Comments POC-GLUCOSE METER 90 mg/dL 70-110 : TESTED A T [facility] 6720 (BEAKER) (test code = [facility], 1538) [address]: Special Education Classroom Aide/Techni sandee ID = [id number] for GERI BONNERIA POCT-GLUCOSE [id number] 12:53:00 Test Item Value Reference Range Interpretation Comments POC-GLUCOSE METER 129 mg/dL 70-110 H : TESTED A T [facility] 6720 (BEAKER) (test code = [facility] [employer] [facility], 1538) [address]: Special Education Classroom Aide/Techni sandee ID = [id number] for GERI SPENCERIA [id number] 12:31:00 Test Item Value Reference Range Interpretation Comments PARTIAL THROMBOPLASTIN TIME 59.7 seconds 22.5-36.0 H (BEAKER) (test code = 760) POCT-GLUCOSE [id number] 08:55:00 Test Item Value Reference Range Interpretation Comments POC-GLUCOSE METER 125 mg/dL 70-110 H : TESTED A T [facility] 6720 (BEAKER) (test code = [facility] [employer] [facility], 1538) [address]: Special Education Classroom Aide/Techni sandee ID = [id number] for GERI SPENCERIA [id number] 06:51:00 Test Item Value Reference Range Interpretation Comments PARTIAL THROMBOPLASTIN TIME 81.5 seconds 22.5-36.0 H (BEAKER) (test code = 760) While on warfarin.PROTHROMBIN TIME/[id number] 06:49:00 Test Item Value Reference Range Interpretation [...] 0-0 (BEAKER) (test code = 413) POCT-GLUCOSE [id number] 21:47:00 Test Item Value Reference Range Interpretation Comments POC-GLUCOSE METER 106 mg/dL 70-110 : TESTED A T [facility] 6720 (BEAKER) (test code = [facility] [place], 1538) [address]: Special Education Classroom Aide/Techni sandee ID = [id number] for Shayy Schumacher [id number] 21:23:00 Test Item Value Reference Range Interpretation Comments PARTIAL THROMBOPLASTIN TIME 39.9 seconds 22.5-36.0 H (BEAKER) (test code = 760) [id number] 09:33:00 Test Item Value Reference Range Interpretation Comments PARTIAL THROMBOPLASTIN TIME 68.3 seconds 22.5-36.0 H (BEAKER) (test code = 760) PROTHROMBIN TIME/[id number] 06:46:00 Test Item Value Reference Range Interpretation [...] WBC 0-0 (BEAKER) (test code = 413) [id number] 00:29:00 Test Item Value Reference Range Interpretation [...] WBC 0-0 (BEAKER) (test code = 413) [id number] 16:03:00 Test Item Value Reference Range Interpretation [...] 0-0 (BEAKER) (test code = 413) PLATELET [id number] 15:55:00 Test Item Value Reference Range Interpretation Comments PLATELET COUNT (BEAKER) (test 518 K/CU MM 150-450 H code = 756) HEMOGLOBIN AND [id number] 09:12:00 Test Item Value Reference Range Interpretation Comments HEMOGLOBIN (BEAKER) (test code = 9.6 GM/DL 11.2-15.7 L 410) HEMATOCRIT (BEAKER) (test code = 31.3 % 34.1-44.9 L 411) Special Education Classroom Aide ID - 6000POCT-GLUCOSE [id number] 06:52:00 Test Item Value Reference Range Interpretation Comments POC-GLUCOSE METER 94 mg/dL 70-110 : TESTED A T [facility] 6720 (BEAKER) (test code = [facility] [place], 1538) [address]: Special Education Classroom Aide/Techni sandee ID = [id number] for JOHN MCKEON PROTHROMBIN TIME/[id number] 04:49:00 Test Item Value Reference Range Interpretation [...] Positive Negative A code = 618) POCT-GLUCOSE [id number] 18:07:00 Test Item Value Reference Range Interpretation Comments POC-GLUCOSE METER 98 mg/dL 70-110 : TESTED A T [facility] 6720 (BEAKER) (test code = [facility], 1538) [address]: Special Education Classroom Aide/Techni sandee ID = [id number] for MARK CARO POCT-GLUCOSE [id number] 12:56:00 Test Item Value Reference Range Interpretation Comments POC-GLUCOSE METER 112 mg/dL 70-110 H : TESTED A T [facility] 6720 (BEAKER) (test code = [facility], 1538) [address]: Special Education Classroom Aide/Techni sandee ID = [id number] for MARK DEY POCT-GLUCOSE [id number] 09:51:00 Test Item Value Reference Range Interpretation Comments POC-GLUCOSE METER 97 mg/dL 70-110 : TESTED A T [facility] 6720 (BEAKER) (test code = [facility], 1538) [address]: Special Education Classroom Aide/Techni sandee ID = [id number] for MARK CARO BASIC METABOLIC [id number] 08:57:00 Test Item Value Reference Range Interpretation [...] S NOT APPLICABLE FOR DIALYSIS PATIEN TS. Special Education Classroom Aide ID - ADMINPROTHROMBIN TIME/[id number] 08:55:00 Test Item Value Reference Range Interpretation [...] mechanical heart valves.CBC W/PLT COUNT & AUTO [id number] 08:45:00 Test Item Value Reference Range Interpretation [...] PERCENT (BEAKER) (test code = 2801) POCT-GLUCOSE [id number] 07:00:00 Test Item Value Reference Range Interpretation Comments POC-GLUCOSE METER 82 mg/dL 70-110 : TESTED A T [facility] 6720 (BEAKER) (test code = [facility] [place], 1538) [address]: Special Education Classroom Aide/Techni sandee ID = [id number] for FABY MOORE TROPONIN [id number] 13:30:00 Test Item Value Reference Range Interpretation [...] failure, acidosis, acute neurological disease, and persistent tachyarrhythmia.Special Education Classroom Aide ID - LIZZIE FPOCT-GLUCOSE [id number] 12:43:00 Test Item Value Reference Range Interpretation Comments POC-GLUCOSE METER 100 mg/dL 70-110 : [facility] (BEAKER) (test code = [facility], 1538) [address]: Special Education Classroom Aide/Techni sandee ID = [id number] for Benito Contreras [id number] 07:10:00 Test Item Value Reference Range Interpretation Comments FERRITIN (BEAKER) (test code = 222.98 ng/mL 5.00-275.00 361) Special Education Classroom Aide ID - RISHI [id number] 05:42:00 Test Item Value Reference Range Interpretation Comments HAPTOGLOBIN (BEAKER) (test code = 91 mg/dL 14258 366) Special Education Classroom Aide ID - RISHI WSARS-COV2/INFLUENZA/RSV [id number] 05:13:00 Test Item Value Reference Range Interpretation Comments SARS-COV2/RT-PCR Negative Negative (test code = 7642406) INFLUENZA A RT-PCR Negative Negative (test code = 8032784) INFLUENZA B RT-PCR Negative Negative (test code = 2782509) RSV RT-PCR (test Negative Negative Performance of the Xpert code = 4916291) Xpress SARS- CoV-2/Flu/RSV test has only b een established in nasopharyngeal swab specimens. Use of the Xpert Xpress SARS-CoV-2/Flu/ RSV test with other spec imen types has not been as sessed and performance characteristics are unknown. As wit h any molecular test, mutations within the targ eted genetic regions identified by jose aaron Xpert Xpress SARS-CoV -2/Flu/RSV test could affe [...] th e clinician evalu ating the patient. Invali [...] sooner.Fact She et for Healthcare Prov iders: https://www.[employer].com/D ocuments/Xpert% 20Xpress%2 7XYVB-UfP-3-Flu -RSV/- 508%20Rev.%20B% 20HCP%20Fa ct%20Sheet.pdfF act Sheet for Healthcare Patients: https://www.[employer].com/D ocuments/Xpert% 20Xpress%2 4IZMC-WgF-7-Flu -RSV/- 507%20Rev.%20B% 20Patient% 20Fact%20Sheet. pdf TROPONIN [id number] 04:58:00 Test Item Value Reference Range Interpretation [...] failure, acidosis, acute neurological disease, and persistent tachyarrhythmia.Special Education Classroom Aide ID - RISHI SADLERRON, TIBC, % SAT. (WITHOUT FERRITIN)2020-08-09 04:55:00 Test Item Value Reference Range Interpretation Comments IRON (BEAKER) (test code = 547) 31.0 ug/dL 40.0-160.0 L TOTAL IRON BINDING CAPACITY 338 ug/dL 250-450 (BEAKER) (test code = 769) IRON % SATURATION (2) (BEAKER) 9 % 20-55 L (test code = 2590) Special Education Classroom Aide ID - RISHI WBASIC METABOLIC [id number] 04:53:00 Test Item Value Reference Range Interpretation [...] S NOT APPLICABLE FOR DIALYSIS PATIEN TS. Special Education Classroom Aide ID - RISHI WHEPATIC FUNCTION [id number] 04:53:00 Test Item Value Reference Range Interpretation [...] (test code = 19 U/L 6-55 347) Special Education Classroom Aide ID - RISHI WPROTHROMBIN [id number] 04:46:00 Test Item Value Reference Range Interpretation [...] mechanical heart valves.CBC W/PLT COUNT & AUTO [id number] 04:45:00 Test Item Value Reference Range Interpretation [...] 0-1 PERCENT (BEAKER) (test code = 2801) [id number] 04:45:00 Test Item Value Reference Range Interpretation [...] is 2.5-3.5 for patients wiht mechanical heart valves.[id number] 04:40:00 Test Item Value Reference Range Interpretation [...] (DEDRA) (test code = hemoly zed 635) Special Education Classroom Aide ID - RISHI ARREDONDOAD, CHEST, 1 VIEW, NON [id number] 23:34:00Reason for exam:->CHEST PAINShould this be performed at the bedside?->Yes [facility] 1960 Sex: [...] No acute osseous normality. Signed: Mary Jo Hamiltonepmarisela Verified Date/Time: 08/08/2020 23:34:25 CBC W/PLT COUNT & AUTO [id number] 23:31:00 Test Item Value Reference Range Interpretation [...] pg/mL 0-100 H (test code = 700) Special Education Classroom Aide ID - DBTROPONIN [id number] 23:29:00 Test Item Value Reference Range Interpretation [...] failure, acidosis, acute neurological disease, and persistent tachyarrhythmia.Special Education Classroom Aide ID - DBBASIC METABOLIC PANEL 2020-08-08 23:24:00 [...] S NOT APPLICABLE FOR DIALYSIS PATIEN TS. Special Education Classroom Aide ID - DBPROTHROMBIN [id number] 06:03:00 Test Item Value Reference Range Interpretation [...] valves.While on warfarin.CBC W/PLT COUNT & AUTO [id number] 06:20:00 Test Item Value Reference Range Interpretation [...] PERCENT (BEAKER) (test code = 2801) PROTHROMBIN [id number] 06:35:00 Test Item Value Reference Range Interpretation [...] for patients wiht mechanical heart valves.OCCULT BLOOD, [id number] 23:23:00 Test Item Value Reference Range Interpretation Comments FECAL OCCULT BLOOD (BEAKER) (test Negative Negative code = 618) PROTHROMBIN [id number] 07:00:00 Test Item Value Reference Range Interpretation [...] mechanical heart valves.CBC W/PLT COUNT & AUTO [id number] 06:52:00 Test Item Value Reference Range Interpretation [...] code = 2801) MYOCARD IMAGING, MULTI, PHARM, [id number] 16:05:00FINAL REPORT PROCEDURE: MYOCARDIAL PERFUSION SPECT IMAGING (Rest/Stress)CPT CODE: 58725 INDICATION: Elevated troponin CARDIOVASCULAR PROFILE:CAD History: NoneSymptoms: [...] MDReport Verified Date/Time: 01/12/2019 16:05:30 Reading Location: [address] Reading Room [id number] 08:57:00 Test Item Value Reference Range Interpretation Comments THYROID STIMULATING HORMONE 1.50 uIU/mL 0.35-4.94 (DEDRA) (test code = 772) [id number] 08:56:00 Test Item Value Reference Range Interpretation Comments T4 TOTAL (DEDRA) (test code = 895) 7.9 ug/dL 4.9-11.7 PROTHROMBIN [id number] 03:12:00 Test Item Value Reference Range Interpretation [...] (BEAKER) (test code = 413) BASIC METABOLIC [id number] 14:05:00 Test Item Value Reference Range Interpretation [...] NOT APPLICABLE FOR DIALYSIS PATIEN TS. TROPONIN [id number] 09:07:00 Test Item Value Reference Range Interpretation [...] acidosis, acute neurological disease, and persistent tachyarrhythmia.TROPONIN [id number] 06:51:00 Test Item Value Reference Range Interpretation [...] acute neurological disease, and persistent tachyarrhythmia.BASIC METABOLIC [id number] 06:51:00 Test Item Value Reference Range Interpretation [...] S NOT APPLICABLE FOR DIALYSIS PATIEN TS. [id number] 06:44:00 Test Item Value Reference Range Interpretation Comments MAGNESIUM (BEAKER) (test code = 1.8 mg/dL 1.6-2.6 627) [id number] 04:26:00 Test Item Value Reference Range Interpretation [...] heparin sliding scalePer heparin sliding scaleHEMOGLOBIN AND [id number] 04:15:00 Test Item Value Reference Range Interpretation Comments HEMOGLOBIN (BEAKER) (test code = 9.5 GM/DL 11.2-15.7 L 410) HEMATOCRIT (BEAKER) (test code = 30.2 % 34.1-44.9 L 411) TROPONIN [id number] 22:28:00 Test Item Value Reference Range Interpretation [...] failure, acidosis, acute neurological disease, and persistent tachyarrhythmia.[id number] 22:15:00 Test Item Value Reference Range Interpretation [...] scalePer heparin sliding scaleRAD, ABDOMEN/KUB, 1 VIEW [id number] 18:44:00Reason for exam:->vomitingFINAL REPORT Abdomen dated January [...] MDReport Verified Date/Time: 01/10/2019 18:44:41 Reading Location: [address] Body Reading Room [id number] 14:44:00 Test Item Value Reference Range Interpretation Comments MAGNESIUM (BEAKER) (test code = 1.6 mg/dL 1.6-2.6 627) BASIC METABOLIC [id number] 14:44:00 Test Item Value Reference Range Interpretation [...] NOT APPLICABLE FOR DIALYSIS PATIEN TS. TROPONIN [id number] 14:44:00 Test Item Value Reference Range Interpretation [...] H PERCENT (BEAKER) (test code = 2801) [id number] 13:25:00 Test Item Value Reference Range Interpretation Comments AMYLASE (BEAKER) (test code = 349) 29 U/L 25-125 [id number] 13:25:00 Test Item Value Reference Range Interpretation Comments LIPASE (BEAKER) (test code = 749) 16 U/L 8-78 [id number] 13:24:00 Test Item Value Reference Range Interpretation Comments PARTIAL THROMBOPLASTIN TIME 41.1 seconds 22.5-36.0 H (BEAKER) (test code = 760) 6 hours after starting heparin infusion and as indicated per sliding scale HEMOGLOBIN AND [id number] 13:10:00 Test Item Value Reference Range Interpretation Comments HEMOGLOBIN (BEAKER) (test code = 9.3 GM/DL 11.2-15.7 L 410) HEMATOCRIT (BEAKER) (test code = 30.0 % 34.1-44.9 L 411) U/S, ABDOMINAL, [id number] 12:16:00Abdomen limited area? Add comment if clarification [...] MDReport Verified Date/Time: 01/10/2019 12:16:23 Reading Location: [address] Ortho Consult Reading Room [id number] 20:52:00 Test Item Value Reference Range Interpretation [...] for patients wiht mechanical heart valves.HEMOGLOBIN AND [id number] 16:23:00 Test Item Value Reference Range Interpretation Comments HEMOGLOBIN (BEAKER) (test code = 9.4 GM/DL 11.2-15.7 L 410) HEMATOCRIT (BEAKER) (test code = 29.9 % 34.1-44.9 L 411) [id number] 07:42:00 Test Item Value Reference Range Interpretation [...] is 2.5-3.5 for patients wiht mechanical heart valves.[id number] 03:41:00 Test Item Value Reference Range Interpretation Comments MAGNESIUM (BEAKER) (test code = 1.7 mg/dL 1.6-2.6 627) BASIC METABOLIC [id number] 03:41:00 Test Item Value Reference Range Interpretation [...] NOT APPLICABLE FOR DIALYSIS PATIEN TS. PROTHROMBIN [id number] 03:35:00 Test Item Value Reference Range Interpretation [...] for patients wiht mechanical heart valves.HEMOGLOBIN AND [id number] 03:21:00 Test Item Value Reference Range Interpretation Comments HEMOGLOBIN (BEAKER) (test code = 8.8 GM/DL 11.2-15.7 L 410) HEMATOCRIT (BEAKER) (test code = 27.9 % 34.1-44.9 L 411) [id number] 23:57:00 Test Item Value Reference Range Interpretation [...] is 2.5-3.5 for patients wiht mechanical heart valves.[id number] 22:20:00 Test Item Value Reference Range Interpretation [...] is on agartrobanPatient is on agartrobanHEMOGLOBIN AND [id number] 22:08:00 Test Item Value Reference Range Interpretation Comments HEMOGLOBIN (BEAKER) (test code = 9.6 GM/DL 11.2-15.7 L 410) HEMATOCRIT (BEAKER) (test code = 30.5 % 34.1-44.9 L 411) HEMOGLOBIN AND [id number] 16:25:00 Test Item Value Reference Range Interpretation [...] WBC 0-0 (BEAKER) (test code = 413) [id number] 15:07:00 Test Item Value Reference Range Interpretation Comments PARTIAL THROMBOPLASTIN TIME 59.8 seconds 22.5-36.0 H (BEAKER) (test code = 760) PROTHROMBIN [id number] 14:32:00 Test Item Value Reference Range Interpretation [...] pg/mL 0-100 H (test code = 700) [id number] 12:34:00 Test Item Value Reference Range Interpretation Comments POTASSIUM (BEAKER) (test code = 3.9 meq/L 3.5-5.1 379) [id number] 12:34:00 Test Item Value Reference Range Interpretation Comments MAGNESIUM (BEAKER) (test code = 2.0 mg/dL 1.6-2.6 627) [id number] 11:33:00 Test Item Value Reference Range Interpretation Comments PROCALCITONIN (BEAKER) (test code 0.05 ng/mL <0.05 H = 3036) SEPSIS RISK (ng/mL)Low: 0.05-0.50Intermediate: 0.51-2.00High: >=2.01LACTIC ACID, [id number] 10:31:00 Test Item Value Reference Range Interpretation Comments LACTATE BLOOD VENOUS (2) (BEAKER) 0.7 mmol/L 0.5-2.2 (test code = 2872) HEMOGLOBIN AND [id number] 10:10:00 Test Item Value Reference Range Interpretation Comments HEMOGLOBIN (BEAKER) (test code = 8.3 GM/DL 11.2-15.7 L 410) HEMATOCRIT (BEAKER) (test code = 26.2 % 34.1-44.9 L 411) BASIC METABOLIC [id number] 08:27:00 Test Item Value Reference Range Interpretation [...] PATIEN TS. RAD, CHEST, 1 VIEW, NON [id number] 08:17:00Reason for exam:->pulmonary edemaShould this be performed [...] Wilksort Verified Date/Time: 01/08/2019 08:17:31 Reading Location: [facility] Reading Room [id number] 08:12:00 Test Item Value Reference Range Interpretation Comments MAGNESIUM (BEAKER) (test code = 2.0 mg/dL 1.6-2.6 627) [id number] 07:14:00 Test Item Value Reference Range Interpretation [...] L (test code = 2590) HEMOGLOBIN AND [id number] 06:25:00 Test Item Value Reference Range Interpretation [...] = 1414) RAD, CHEST, 1 VIEW, NON [id number] 23:31:00Reason for exam:- >DyspneaShould this be performed [...] MDReport Verified Date/Time: 01/07/2019 23:31:03 Reading Location: [address] Reading Room COMPREHENSIVE METABOLIC [id number] 22:56:00 Test Item Value Reference Range Interpretation [...] S NOT APPLICABLE FOR DIALYSIS PATIEN TS. [id number] 22:51:00 Test Item Value Reference Range Interpretation Comments MAGNESIUM (BEAKER) (test code = 1.3 mg/dL 1.6-2.6 L 627) [id number] 22:45:00 Test Item Value Reference Range Interpretation Comments FIBRINOGEN LEVEL (BEAKER) (test 509 mg/dl 225-434 H code = 658) PROTHROMBIN [id number] 22:09:00 Test Item Value Reference Range Interpretation [...] mechanical heart valves.CBC W/PLT COUNT & AUTO [id number] 22:05:00 Test Item Value Reference Range Interpretation [...] % 0-1 PERCENT (BEAKER) (test code = 3571)
--- NOTE | 2023-06-11 18:14 | RAD REPORT ---
EXAM DESCRIPTION: RAD - Chest Single View - 06/11/2023 6:08 pm CLINICAL HISTORY: Chest pain;Dyspnea Chest pain. COMPARISON: Chest Single View dated 05/13/2023; Chest Single View dated 04/21/2023; Chest Single View dated 04/17/2023; Chest Single View dated 05/27/2021 FINDINGS: Portable technique limits examination quality. Mild interstitial pulmonary edema. The heart is moderately enlarged in size. No displaced fractures.S ternotomy wires present. IMPRESSION: Mild CHF.
[2023-06-11 18:52] LABS: Lymphocytes % 15.9 % (15.3-44.8)
[2023-06-11 19:07] LABS: Magnesium 1.7 mg/dL (1.6-2.4); Potassium 3.7 mEq/L (3.5-5.1)
[2023-06-11 19:09] LABS: Absolute Lymphocytes (CBC) 0.7 K/uL (0.7-4.9); Hematocrit 18.9 % (36.0-45.0); MCV 80.8 fL (80-100); MPV 8.3 fL (7.6-11.3); Platelets 232 thou/uL (152-406); RBC Red Blood Cell Count 2.34 M/uL (3.86-4.86)
[2023-06-11 19:15] LABS: Troponin High Sensitivity 63.3 pg/mL (<58.9)
[2023-06-11 19:19] LABS: Protime INR 6.28
[2023-06-11] MEDS ORDERED: ONDANSETRON 4 MG/2 ML VIAL IV PRN (19:26)
[2023-06-11] MEDS ORDERED: MORPHINE 2 MG/ML SYR IV PRN (19:26)
[2023-06-11] MEDS ORDERED: ACETAMINOPHEN 500 MG TAB PO PRN (19:26)
--- NOTE | 2023-06-11 19:26 | EDPHYS ---
Physician Documentation [facility] Name: Kim Aldana Age: 62 yrs Sex: Female : 1960 Arrival Date: 06/11/2023 Time: 17:02 Bed 13 Private MD: ED Physician Darryl Linton HPI: 06/11 21:59 This 62 yrs old Female presents to ER via Wheelchair with complaints of Shortness Of kb Breath, Weakness. 21:59 Patient is a 62-year-old female who presents for shortness of breath on exertion, kb fatigue and body aches. States symptoms started in May and have gotten worse. States she had an [place] in April and has never bounced back. Reports she did have anemia recently and was transfused. Denies any bleeding or dark stools. Historical: - Allergies: 17:12 Aspirin; cm10 17:12 Compazine; cm10 17:12 Methadone; cm10 17:12 Morphine; cm10 17:12 Neurontin; cm10 17:12 PENICILLINS; cm10 17:12 Phenergan; cm10 17:12 Suboxone; cm10 17:12 plastic tape; cm10 - PMHx: 17:12 arterial insuficiency; Back pain; cerebritis; chest pain; dejenteritive joint disease; cm10 Chronic pain; Dyspepsia; esophageal reflux; fatigue; hypersomnia; lumbar radiculitis; Lupus; menopause; osteomyelitis; Panic Attacks; pulmonary edema; Seizures; Tachycardia; TIA; venous insufficiency; Myocardial infarction; Anemia; - PSHx: 17:12 bowel resection; breast reduction bilateral; hip replacement bilateral; Mitral and cm10 Aortic Valve replacement; right total knee; - Immunization history:: Adult Immunizations unknown. - Social history:: Smoking status: Patient denies any tobacco usage or history of. ROS: 21:58 Constitutional: Negative for fever, chills, and weight loss, kb 21:58 Respiratory: Positive for dyspnea on exertion, 21:58 All other systems are negative, Exam: 21:57 Head/Face: Normocephalic, atraumatic. ENT: Moist Mucous membranes Cardiovascular: kb Regular rate Respiratory: Respirations even and unlabored. No increased work of breathing. Talking in full sentences Abdomen/GI: Soft, non-tender. No distention Skin: Warm, dry with normal turgor. Normal color. MS/ Extremity: Pulses equal, no cyanosis. Neurovascular intact. Full, normal range of motion. Neuro: Awake and alert, GCS 15, oriented to person, place, time, and situation. Moves all extremities. Normal gait. 21:57 Constitutional: The patient appears alert, awake, pale, Vital Signs: 17:10 BP 108 / 63; Pulse 108; Resp 18; Temp 97.7(IR); Pulse Ox 99% ; Weight 68.04 kg; Height cm10 5 ft. 6 in. ; Pain 3/10; 19:20 Pulse 107; Resp 20; Pulse Ox 100% ; jj7 20:00 BP 107 / 65; Pulse 103; Resp 20; Pulse Ox 100% ; jj7 21:00 BP 115 / 56; Pulse 106; Resp 17; Pulse Ox 99% ; jj7 17:10 Body Mass Index 24.21 (68.04 kg, 167.64 cm) cm10 17:10 Pain Scale: Adult cm10 MDM: 17:10 Patient medically screened. kb 21:58 Differential diagnosis: Anemia CHF exacerbation, pneumonia, pulmonary edema. Data kb reviewed: vital signs, nurses notes. Consideration of Admission/Observation Patient was admitted/placed on observation. Escalation of care including admission/observation considered. Management of patient was discussed with the following: Hospitalist: Dr. Lopes accepts patient for admission. External Records Reviewed: Inpatient record: Inpatient records reviewed from previous admission last month.. Counseling: I had a detailed discussion with the patient and/or guardian regarding the historical points, exam findings, and any diagnostic results supporting the discharge/admit diagnosis, lab results, radiology results, the need for further work-up and treatment in the hospital. 06/11 17:17 Order name: Basic Metabolic Panel; Complete Time: 19:22 kb 06/11 17:17 Order name: CBC with Diff; Complete Time: 20:52 kb 06/11 17:17 Order name: Magnesium; Complete Time: 19:22 kb 06/11 17:17 Order name: NT PRO-BNP; Complete Time: 19:22 kb 06/11 17:17 Order name: PT-INR; Complete Time: 19:22 kb 06/11 17:17 Order name: Troponin HS; Complete Time: 19:22 kb 06/11 19:13 Order name: Type And Screen kb 06/11 19:32 Order name: CBC with Automated Diff EDSD 06/11 19:32 Order name: CBC with Automated Diff EDSD 06/11 19:32 Order name: Comprehensive Metabolic Panel EDSD 06/11 19:32 Order name: Comprehensive Metabolic Panel EDSD 06/11 19:32 Order name: Protime (+INR) EDMS 06/11 19:32 Order name: Protime (+INR) EDSD 06/11 19:45 Order name: Packed RBC Leukored EDSD 06/11 20:49 Order name: CBC Smear Scan; Complete Time: 20:52 EDSD 06/11 17:17 Order name: XRAY Chest (1 view); Complete Time: 18:20 kb 06/11 17:17 Order name: EKG; Complete Time: 17:18 kb 06/11 17:17 Order name: Cardiac monitoring; Complete Time: 17:50 kb 06/11 17:17 Order name: EKG - Nurse/Tech; Complete Time: 17:50 kb 06/11 17:17 Order name: IV Saline Lock; Complete Time: 20:57 kb 06/11 17:17 Order name: Labs collected and sent; Complete Time: 20:57 kb 06/11 17:17 Order name: O2 Per Protocol; Complete Time: 17:50 kb 06/11 17:17 Order name: O2 Sat Monitoring; Complete Time: 17:50 kb Administered Medications: 20:57 Drug: Ativan IVP 1 mg IVP once Route: IVP; Site: left jugular; bp 20:57 Follow up: Response: No adverse reaction bp Disposition Summary: 06/11/23 19:26 Hospitalization Ordered Notes: Hospitalization Status: Inpatient Admission kb Provider: Jona Lopes Location: Telemetry/[facility] (Inpatient) kb Condition: Stable kb Problem: new kb Symptoms: are unchanged kb Bed/Room Type: Standard Room Assignment: 209(06/11/23 19:52) mw Diagnosis - Anemia, unspecified kb - Supratherapeutic INR kb Forms: - Medication Reconciliation Form kb - SBAR form kb - Leadership Thank You Letter kb Addendum: 06/15/2023 08:01 I was immediately available for consultation during this patient's visit. I did not e c2 personally see the patient or guide the patient's care. . Signatures: Dispatcher [employer] EDFrancisca Gil FNP-C FNP-Ckb Samantha Laws RN RN mw Anderson, Corey, MD MD cha Peltier, Brian, RN RN bp Martinez, Clarissa, RN RN 10 Darryl Linton MD MD ec2 Corrections: (The following items were deleted from the chart) 06/11 19:52 19:26 kb maite
--- NOTE | 2023-06-11 19:26 | ER ---
Nurse's Notes [facility] Name: Kim Aldana Age: 62 yrs Sex: Female : 1960 Arrival Date: 06/11/2023 Time: 17:02 Bed 13 Private MD: Diagnosis: Anemia, unspecified;Supratherapeutic INR Presentation: 06/11 17:10 Chief complaint: Patient states: shortness of breath that gets worse with movement. Pt cm10 states that her home health nurse came to see her today and was told that her left lung sounded diminished. Pt states that she has had this shortness of breath since her [place] in April. Pt also reports dizziness. Pt also reports right sided chest pain. Coronavirus screen: Vaccine status: Patient reports being unvaccinated. Client denies travel out of the [place] in the last 14 days. Ebola Screen: Patient denies travel to an Ebola-affected area in the 21 days before illness onset. No symptoms or risks identified at this time. Initial Sepsis Screen: Does the patient meet any 2 criteria? No. Patient's initial sepsis screen is negative. Does the patient have a suspected source of infection? No. Patient's initial sepsis screen is negative. Risk Assessment: Do you want to hurt yourself or someone else? Patient reports no desire to harm self or others. Onset of symptoms was June 11, 2023. 17:10 Method Of Arrival: Wheelchair cm10 17:10 Acuity: CABRERA 2 cm10 Triage Assessment: 21:01 Respiratory: Onset: The symptoms/episode began/occurred SINCE APR, the patient has jj7 moderate shortness of breath. Historical: - Allergies: 17:12 Aspirin; cm10 17:12 Compazine; cm10 17:12 Methadone; cm10 17:12 Morphine; cm10 17:12 Neurontin; cm10 17:12 PENICILLINS; cm10 17:12 Phenergan; cm10 17:12 Suboxone; cm10 17:12 plastic tape; cm10 - PMHx: 17:12 arterial insuficiency; Back pain; cerebritis; chest pain; dejenteritive joint disease; cm10 Chronic pain; Dyspepsia; esophageal reflux; fatigue; hypersomnia; lumbar radiculitis; Lupus; menopause; osteomyelitis; Panic Attacks; pulmonary edema; Seizures; Tachycardia; TIA; venous insufficiency; Myocardial infarction; Anemia; - PSHx: 17:12 bowel resection; breast reduction bilateral; hip replacement bilateral; Mitral and cm10 Aortic Valve replacement; right total knee; - Immunization history:: Adult Immunizations unknown. - Social history:: Smoking status: Patient denies any tobacco usage or history of. Screenin:15 Abuse screen: Denies threats or abuse. Nutritional screening: No deficits noted. jj7 Tuberculosis screening: No symptoms or risk factors identified. 20:48 [facility] ED Fall Risk Assessment (Adult) History of falling in the last 3 months, jj7 including since admission No falls in past 3 months (0 pts) Confusion or Disorientation No (0 pts) Intoxicated or Sedated No (0 pts) Impaired Gait No (0 pts) Mobility Assist Device Used No (0 pt) Altered Elimination No (0 pt) Score/Fall Risk Level 0 - 2 = Low Risk Oriented to surroundings, Maintained a safe environment. Assessment: 19:15 General: Appears in no apparent distress. uncomfortable, unkempt, PALE. Behavior is jj7 calm, cooperative, appropriate for age. Pain: Complains of pain in head. Neuro: Reports headache MIGRANE. Cardiovascular: Rhythm is sinus tachycardia. Respiratory: Airway is patent Trachea midline Respiratory effort is even, labored, Respiratory pattern is symmetrical, tachypnea. 19:15 Reassessment: ASSUMED CARE OF PT. RECEIVED IN REPORT THAT THEY ATTEMPTED FOR AN IV jj7 MULTIPLE TIMES AND THEY WERE UNSUCCESSFUL. CHARGE NURSE ADEN INFORMED. PT PALE AND TACHY. PT ASSISTED TO BATHROOM. PT HAS INCREASED WORK OF BREATHING WITH AMBULATION. GAIT IS STEADY BUT WEAK. INFORMED PT TO PULL STRING IN BATHROOM WHEN FINISHED. 20:01 Reassessment: ADEN RN AT BEDSIDE ATTEMPTING ULTRASOUND IV. jj7 20:21 Reassessment: NO SUCCESS WITH U/S GUIDED PIV PLACEMENT. LMP AND ATTENDING NOTIFIED. bp 20:28 Reassessment: ADEN UNSUCCESSFUL WITH US IV. Dayanara FLORES AT BEDSIDE ATTEMPTING TO INSERT jj7 AN IV. 20:48 Respiratory: Breath sounds are clear bilaterally. jj7 Vital Signs: 17:10 BP 108 / 63; Pulse 108; Resp 18; Temp 97.7(IR); Pulse Ox 99% ; Weight 68.04 kg; Height cm10 5 ft. 6 in. ; Pain 3/10; 19:20 Pulse 107; Resp 20; Pulse Ox 100% ; jj7 20:00 BP 107 / 65; Pulse 103; Resp 20; Pulse Ox 100% ; jj7 21:00 BP 115 / 56; Pulse 106; Resp 17; Pulse Ox 99% ; jj7 17:10 Body Mass Index 24.21 (68.04 kg, 167.64 cm) cm10 17:10 Pain Scale: Adult cm10 ED Course: 17:03 Patient arrived in ED. rg4 17:10 [facility]isc[facility] Lopez [facility]-C [facility] kb 17:10 Darryl Linton MD is Attending Physician. kb 17:12 Triage completed. cm10 17:13 Arm band placed on Patient placed in an exam room, on a stretcher. cm10 17:28 Lauren Dietz, MELQUIADES is Primary Nurse. kd3 18:10 XRAY Chest (1 view) In Process Unspecified. EDMS 19:15 Patient has correct armband on for positive identification. Bed in low position. Call jj7 light in reach. Side rails up X 1. scrap stripper hand on. Lights dimmed. Warm blanket given. 19:26 Jona Lopes MD is Hospitalizing Provider. kb 20:36 No provider procedures requiring assistance completed. jj7 20:43 Inserted saline lock: 18 gauge in left EJ, using aseptic technique. ,using aseptic jj7 technique. INSERTED BY DR FLORES Blood collected. 20:48 Patient admitted, IV remains in place. jj7 20:49 Provided Education on: HOSPITAL ENVIRONMENT. jj7 Administered Medications: 20:57 Drug: Ativan IVP 1 mg IVP once Route: IVP; Site: left jugular; bp 20:57 Follow up: Response: No adverse reaction bp Medication: 19:15 VIS not applicable for this client. jj7 Outcome: 19:26 Decision to Hospitalize by Provider. kb 20:44 Admitted to Med/surg jj7 20:44 Admitted to Med/surg accompanied by tech, via stretcher, room 209, 20:44 Condition: stable 21:00 Admitted to Med/surg accompanied by nurse, accompanied by tech, Report called to BETTY graham RN \T\2100 22:12 Patient left the ED. jj7 Signatures: Dispatcher [employer] EDMS Francisca Lopez FNP-C FNP-Ckb Garcia, Rubi rg4 Aden Wilkinson, RN RN bp Lauren Dietz, RN RN kd3 Miranda Gupta, RN RN jj7 Emma Seth, RN RN cm10
--- NOTE | 2023-06-11 19:52 | P.HP ---
Certification for Inpatient Patient admitted to: Inpatient With expected LOS: >2 Midnights Patient will require the following post-hospital care: None Practitioner: I am a practitioner with admitting privileges, knowledge of patient current condition, hospital course, and medical plan of care. Services: Services provided to patient in accordance with Admission requirements found in Title 42 Section 412.3 of the Code of Federal Regulations Patient History Date of Service: 06/11/23 Reason for admission: Anemia History of Present Illness: 62-year-old female with past medical history of mitral and aortic valve replacement and is on Coumadin 2.5 mg / 4 mg on alternate days, chronic back pain, degenerative joint disease, arterial insufficiency, PAD, GERD, lumbar radiculitis, lupus, history of osteomyelitis, anxiety, CAD, TIA, history of seizures, history of pulmonary edema, history of cerebritis, who presented to the ER with generalized weakness and fatigue . Patient denies any bleeding No fever or chills. No chest pain or shortness of breath. No nausea vomiting or diarrhea. Patient stated that she does not have melena but her stool is dark because of iron tablets she is on Denies any abdominal pain Patient was assessed in the ER and was found to have anemia of hemoglobin of 6.1 and hypercoagulability with INR more than 6.38 and was admitted for further management Allergies Penicillins Allergy (Intermediate, Verified 02/06/23 12:32) Itching/Hives/Rash prochlorperazine [From Compazine] Allergy (Intermediate, Verified 02/06/23 12:32) Nausea/Vomiting prochlorperazine edisylate [From Compazine] Allergy (Intermediate, Verified 02/06/23 12:32) Nausea/Vomiting prochlorperazine maleate [From Compazine] Allergy (Intermediate, Verified 02/06/23 12:32) Nausea/Vomiting promethazine [From Phenergan] Allergy (Intermediate, Verified 02/06/23 12:32) Nausea/Vomiting promethazine HCl [From Phenergan] Allergy (Verified 02/06/23 12:32) Nausea/Vomiting Home medications list reviewed: Yes Home Medications: Levothyroxine [Synthroid*] 125 mcg PO DAILY 11/11/19 Omeprazole [Prilosec] 40 mg PO DAILY 11/11/19 Venlafaxine HCl [Effexor*] 150 mg PO DAILY 11/11/19 Acyclovir 400 mg PO DAILY 11/01/20 Cyclobenzaprine [Flexeril*] 10 mg PO BID 11/01/20 predniSONE [Prednisone] 2.5 mg PO DAILY #7 tablet 05/31/21 Aspirin [Ecotrin 81 MG] 162 mg PO DAILY #60 tab 04/24/23 Atorvastatin Calcium [Lipitor] 40 mg PO BEDTIME #30 tab 04/24/23 Clopidogrel Bisulfate [Plavix] 75 mg PO DAILY #30 tab 04/24/23 Warfarin Sodium [Coumadin*] 4 mg PO DAILY AT SUPPER #30 tab 04/24/23 Doxepin HCl 100 mg PO BEDTIME 05/14/23 Nitroglycerin 0.4 mg SL PRN PRN 05/14/23 hydrOXYzine HCL [Atarax*] 25 mg PO DAILY 05/14/23 traMADol HCL [Ultram*] 50 mg PO TID PRN 05/14/23 Codeine/APAP [Tylenol #3*] 1 tab PO Q6H PRN #10 tab 05/20/23 Ferrous Sulfate [Iron] 325 mg PO DAILY 30 Days #30 tab 05/20/23 - Past Medical/Surgical History Diabetic: No Past Medical History: Reviewed- Non-Contributory -: Systemic lupus erythematous -: cerebritis -: Seizure disorder -: DJD, chronic pain -: GERD -: Chronic steroid use -: Arterial/venous insufficiency -: Anxiety/panic disorder -: amputation of toes left foot Past Surgical History: Reviewed- Non-Contributory -: Bilateral HIP REPLACED -: RIGHT KNEE REPLACED -: MITRAL and AORTIC VALVE REPLACED -: tubal ligation -: Colon sx -: Partial left foot removed Psychosocial/ Personal History: Patient reports that she lives alone with her dog, has caretakers most days of the week. - Family History Family History: Reviewed- Non-Contributory - Family History Sister -: Heart disease - Social History Smoking Status: Never smoker Alcohol use: No CD- Drugs: No Caffeine use: Yes Review of Systems 10-point ROS is otherwise unremarkable General: Weakness, Malaise Eyes: Unremarkable ENT: Unremarkable Respiratory: SOB with Excertion, Unremarkable Cardiovascular: Light Headedness, Unremarkable Gastrointestinal: Unremarkable Genitourinary: Unremarkable Musculoskeletal: Unremarkable Neurological: Unremarkable Lymphatics: Unremarkable Physical Examination - Vital Signs Temperature: 98.5 F Blood Pressure: 128/76 Pulse: 78 Respirations: 18 Pulse Ox (%): 98 - Physical Exam General: Alert, In no apparent distress, Oriented x3, Cooperative HEENT: Atraumatic, Normocephalic Neck: Supple, No Thyromegaly Respiratory: Clear to auscultation bilaterally, Normal air movement Cardiovascular: No edema, Regular rate/rhythm, Normal S1 S2, Systolic murmur Capillary refill: <2 Seconds Gastrointestinal: Soft and benign, Non-distended, W/out hepatosplenomegaly, No ascites, No tenderness Musculoskeletal: No clubbing, No swelling Integumentary: No rashes, No breakdown Neurological: Normal speech, Normal strength at 5/5 x4 extr, Cranial nerves 3-12 intact, Normal reflexes 2+, Normal affect Lymphatics: No axilla or inguinal lymphadenopathy - Studies Laboratory Data (last 24 hrs) 06/11/23 06/11/23 06/11/23 18:42 18:42 18:42 WBC 4.20 L Hgb 6.1 L Hct 18.9 L Plt Count 232 PT 69.1 H INR 6.28 H* Sodium 139 Potassium 3.7 BUN 28 H Creatinine 0.88 Glucose 123 H Magnesium 1.7 Assessment and Plan - Problems (Diagnosis) (1) Anemia Current Visit: Yes Status: Acute Plan: Patient has a history of anemia Hemoglobin found to be 6.1 We will try to transfuse 2 units PRBCs Monitor closely under telemetry H/H monitor closely Transfuse as needed Patient denies any bleeding Patient had a EGD last admission We will get FOBT Iron studies Patient need to follow-up with hematology (2) Seizure disorder Current Visit: No Status: Chronic Plan: Continue home medications Seizure precautions Monitor closely (3) History of mitral valve replacement with mechanical valve Current Visit: No Status: Acute Plan: Patient has a history of mitral valve and aortic valve replacement On Coumadin We will hold Coumadin for now because of the INR Please restart back up when the INR is less than 3.5 Target INR is 2.5-3.5 (4) Warfarin-induced coagulopathy Onset Date: 04/05/17 Current Visit: No Status: Acute Plan: We will hold Coumadin for now INR monitor daily Target INR is 2.5-3.5 Titrate as needed (5) Anxiety Current Visit: No Status: Chronic Plan: Continue home medications (6) NSTEMI (non-ST elevated myocardial infarction) Current Visit: Yes Status: Acute Plan: Possibly type II because of the anemia We will get an echocardiogram We will trend cardiac enzymes Patient denies any chest pain We will get an EKG as well as chest Continue statin and Plavix (7) Elevated brain natriuretic peptide (BNP) level Current Visit: Yes Status: Acute Plan: We will get an echocardiogram No signs of decompensation of CHF Continue home dose of diuretics Discharge Plan: Home Plan to discharge in: 48 Hours - Advance Directives Does patient have a Living Will: No Does patient have a Durable POA for Healthcare: No - Code Status/Comfort Care Code Status: Full Code Physician Review: Patient Assessed, Agree with Above Assessment and Plan Time Spent Managing Pts Care (In Minutes): 48
[2023-06-11 20:49] LABS: Anisocytosis SLIGHT; Blood Morphology Comment NOTED (NOT SEEN); Platelet Estimate ADEQ; Polychromasia SLIGHT; White Blood Cell Scan OK (OK)
[2023-06-11] MEDS ORDERED: LORazepam 2 MG/ML VIAL ONE (20:52)
[2023-06-11] MEDS ORDERED: POTASSIUM CL SA 10 MEQ TAB PO ONE (21:18)
[2023-06-11] MEDS ORDERED: CEFTRIAXONE 1000 MG/VIAL ONE (21:19)
[2023-06-11] MEDS ORDERED: TAMSULOSIN 0.4 MG SR CAP ONE (21:19)
[2023-06-11] MEDS ORDERED: NITROGLYCERIN 0.4 MG/TAB SL PRN (22:23)
[2023-06-11] MEDS ORDERED: TRAMADOL HCL 50 MG TAB PO PRN (22:23)
[2023-06-11] MEDS ORDERED: NA CHLORIDE 0.9% 500 ML ONE (23:25)
[2023-06-11 23:42] VITALS: BMI 24.2
[2023-06-12] MEDS ORDERED: NA CHLORIDE 0.9% 500 ML ONE (02:46)
--- NOTE | 2023-06-12 07:14 | P.PN ---
Date of Service: 06/12/23 Subjective: Feeling a little better today hgb 6.2 on admission; s/p 2 uPRBC today reports dark stool since starting iron tablets; denies bleeding/melena no obvious bleeds seen reports coumadin recently changed ~1 week ago (Decreased) ROS: 10 point ROS as noted above, otherwise negative Physical Exam: GEN: Alert, oriented, NAD, pale HEENT: Normal conjunctiva, sclera anicteric CV: Regular rate and rhythm, no edema Pulm: Nonlabored respirations on room air, clear bilaterally ABD: Soft, nontender, nondistended Neuro: Normal speech, normal affect vitals reviewed Problem List: Anemia, acute on chronic; unclear etiology NSTEMI CAD s/p PCI (Apr 2023) s/p AVR and MVR on coumadin supratherapeutic INR on admission Chronic back pain Mild Gastritis GERD h/o lupus h/o seizure disorder Anxiety hypothyroidism Anemia, acute on chronic; unclear etiology Unclear etiology. Patient denies any bleeding. reports dark stool since starting iron tablets Recent EGD last hospitalization (05/14/23): noted mild gastritis; no other findings or active GI bleed seen does report soem dark stool, started when taking PO iron hgb 6.28 on admission s/p 2 uPRBC (06/12) Trend H&H. Transfuse for hgb < 7 NSTEMI CAD s/p PCI (Apr 2023) s/p AVR and MVR on coumadin supratherapeutic INR on admission trend troponins, monitor on tele Patient denies chest pain BNP: 3094 CXR (06/11): mild CHF Cardiology consulted continue home plavix, statin, aspirin INR 6.2 on admission Hold coumadin for now; Target INR 2.5-3.5 reports coumadin recently changed ~1 week ago; now taking 2.5mg/4mg, alternating dose daily (previously taking 3mg at home) Chronic back pain Mild Gastritis GERD h/o lupus h/o seizure disorder Anxiety hypothyroidism confirm home medications, restart as appropriate VTE: SCD Code: Full Dispo: Home, PT Pending further improvement, hgb stabilizes ~48hrs
[2023-06-12] MEDS ORDERED: INFLUENZA VACCINE (for 6+ mo) 0.5 ML DOSE IMVAC ONE (08:00)
[2023-06-12] MEDS: CYCLOBENZAPRINE 10 MG TAB PO SCH ×2 (09:46→21:36)
[2023-06-12] MEDS: LEVOTHYROXINE SOD 0.125 MG TAB PO SCH (09:47)
[2023-06-12] MEDS: hydrOXYzine HCL 25 MG TAB PO SCH (09:47)
[2023-06-12] MEDS: ACYCLOVIR 400 MG TABLET PO SCH (09:47)
[2023-06-12] MEDS: CLOPIDOGREL 75 MG TABLET PO SCH (09:47)
[2023-06-12] MEDS: ASPIRIN EC 81 MG TAB PO SCH (09:48)
[2023-06-12] MEDS: VENLAFAXINE HCL 75 MG TABLET PO SCH (09:48)
[2023-06-12 14:41] LABS: Absolute Lymphocytes (CBC) 0.8 K/uL (0.7-4.9); Hematocrit 23.5 % (36.0-45.0); Lymphocytes % 16.6 % (15.3-44.8); MCV 82.5 fL (80-100); MPV 8.3 fL (7.6-11.3); Platelets 224 thou/uL (152-406); RBC Red Blood Cell Count 2.85 M/uL (3.86-4.86)
[2023-06-12 14:42] LABS: Protime INR 5.25
[2023-06-12 14:54] LABS: Albumin 2.4 g/dL (3.4-5.0); Bilirubin Total 0.4 mg/dL (0.2-1.0); Potassium 3.3 mEq/L (3.5-5.1); Protein, Total 5.5 g/dL (6.4-8.2)
[2023-06-12] MEDS: DOXEPIN HCL 25 MG CAP PO SCH (21:35)
[2023-06-12] MEDS: ATORVASTATIN 40 MG TAB PO SCH (21:40)
[2023-06-12] MEDS: CODEINE 30MG/APAP 300MG TAB PO PRN (23:11)
--- NOTE | 2023-06-13 07:45 | P.PN ---
Date of Service: 06/13/23 Subjective: Feeling better today breathing more comfortably on room air today; still weak, but improving continues with dark stook, no red stool, no worsening, no abdominal pain denies chest pain reports seeing PCP ~2 weeks ago and both INR/hgb were reportedly okay ROS: 10 point ROS as noted above, otherwise negative Physical Exam: GEN: Alert, oriented, NAD, pale HEENT: Normal conjunctiva, sclera anicteric CV: Regular rate and rhythm, no edema Pulm: Nonlabored respirations on room air, clear bilaterally ABD: Soft, nontender, nondistended Neuro: Normal speech, normal affect vitals reviewed Problem List: Anemia, acute on chronic; unclear etiology NSTEMI CAD s/p PCI (Apr 2023) s/p AVR and MVR on coumadin supratherapeutic INR on admission Chronic back pain Mild Gastritis GERD h/o lupus h/o seizure disorder Anxiety hypothyroidism Anemia, acute on chronic; unclear etiology Unclear etiology. Patient denies any bleeding. reports dark stool since starting iron tablets each time with supratherapeutic INR Recent EGD last hospitalization (05/14/23): noted mild gastritis; no other findings or active GI bleed seen does report some dark stool, started when taking PO iron s/p 2 uPRBC (06/12) Trend H&H. Transfuse for hgb < 8 hgb 6.1 -> 7.8; repeat pending; hard stick needs tighter monitoring of coumadin consider CT surgery eval, replace mechanical valves to get off coumadin; now 2 hospitalizations NSTEMI CAD s/p PCI (Apr 2023) s/p AVR and MVR on coumadin supratherapeutic INR on admission trend troponins; 63 -> 2251, monitor on tele Patient denies chest pain BNP: 3094 CXR (06/11): mild CHF Cardiology consulted continue home plavix, statin, aspirin echo ordered 06/12 INR 6.2 on admission; improving Hold coumadin for now; Target INR 2.5-3.5 reports coumadin recently changed ~1 week ago; now taking 2.5mg/4mg, alternating dose daily (previously taking 3mg at home) recommend checking INR every 3-4 days on discharge comparatively to once/week f/u INR today; may need to restart coumadin at lower does ~2mg Chronic back pain Mild Gastritis GERD h/o lupus h/o seizure disorder Anxiety hypothyroidism confirm home medications, restart as appropriate VTE: SCD Code: Full Dispo: Home, PT ~1-2 days Pending further improvement of INR, hgb stabilizes,
[2023-06-13] MEDS: ASPIRIN EC 81 MG TAB PO SCH (09:50)
[2023-06-13] MEDS: hydrOXYzine HCL 25 MG TAB PO SCH (09:51)
[2023-06-13] MEDS: VENLAFAXINE HCL 75 MG TABLET PO SCH (09:51)
[2023-06-13] MEDS: CLOPIDOGREL 75 MG TABLET PO SCH (09:51)
[2023-06-13] MEDS: LEVOTHYROXINE SOD 0.125 MG TAB PO SCH (09:51)
[2023-06-13] MEDS: CYCLOBENZAPRINE 10 MG TAB PO SCH ×2 (09:52→21:39)
[2023-06-13] MEDS: ACYCLOVIR 400 MG TABLET PO SCH (09:52)
[2023-06-13] MEDS: PANTOPRAZOLE 40 MG INJ IVP SCH ×2 (14:46→21:39)
[2023-06-13] MEDS ORDERED: FAMOTIDINE 20 MG TAB PO ONE (15:00)
[2023-06-13] MEDS ORDERED: SODIUM CHLORIDE 0.9% 10ML INJ IV PRN (15:00)
[2023-06-13 18:04] LABS: Absolute Lymphocytes (CBC) 0.5 K/uL (0.7-4.9); Hematocrit 17.3 % (36.0-45.0); MCV 82.5 fL (80-100); MPV 8.4 fL (7.6-11.3); Platelets 203 thou/uL (152-406)
[2023-06-13 18:29] LABS: Potassium 3.8 mEq/L (3.5-5.1)
[2023-06-13 18:30] LABS: Troponin High Sensitivity 622.6 pg/mL (<58.9)
[2023-06-13] MEDS ORDERED: NACL 0.9% IRR SOLN 0 ML IRR ONE (19:24)
[2023-06-13] MEDS ORDERED: NA CHLORIDE 0.9% 250 ML ONE (21:21)
[2023-06-13] MEDS: ATORVASTATIN 40 MG TAB PO SCH (21:38)
[2023-06-13] MEDS: DOXEPIN HCL 25 MG CAP PO SCH (21:39)
[2023-06-13] MEDS ORDERED: FUROSEMIDE 20 MG/ 2ML VIAL IV ONE (22:30)
[2023-06-14] MEDS: CODEINE 30MG/APAP 300MG TAB PO PRN ×2 (00:09→22:16)
[2023-06-14 05:09] LABS: Hematocrit 24.3 % (36.0-45.0); MCV 81.5 fL (80-100); MPV 8.2 fL (7.6-11.3); Platelets 180 thou/uL (152-406); RBC Red Blood Cell Count 2.98 M/uL (3.86-4.86)
[2023-06-14] MEDS: NA CHLORIDE 0.9% 1,000 ML IV SCH (05:13)
[2023-06-14 05:14] LABS: Protime INR 3.27
[2023-06-14 05:23] LABS: Potassium 3.3 mEq/L (3.5-5.1)
--- NOTE | 2023-06-14 09:25 | P.PN ---
Date of Service: 06/14/23 Subjective: labs delayed yesterday - hgb noted to be 5.7 yesterday; given 2 uPRBC +Bloody BM yesterday; no BM today yet feeling much better today, not as weak/fatigued/pale as yesterday no chest pain ROS: 10 point ROS as noted above, otherwise negative Physical Exam: GEN: Alert, oriented, NAD HEENT: Normal conjunctiva, sclera anicteric CV: Regular rate and rhythm, no edema Pulm: Nonlabored respirations on room air, clear bilaterally ABD: Soft, nontender, nondistended Neuro: Normal speech, normal affect vitals reviewed Problem List: Anemia, acute on chronic; unclear etiology NSTEMI CAD s/p PCI (Apr 2023) s/p AVR and MVR on coumadin supratherapeutic INR on admission Chronic back pain Mild Gastritis GERD h/o lupus h/o seizure disorder Anxiety hypothyroidism Anemia, acute on chronic; unclear etiology Unclear etiology. Patient denies any bleeding. reports dark stool since starting iron tablets each admission in last month with supratherapeutic INR Recent EGD last hospitalization (05/14/23): noted mild gastritis; no other findings or active GI bleed seen does report some dark stool, started when taking PO iron Recommend colonoscopy in next few weeks for further evaluation given recurrent bleeds / last colonoscopy ~3+ years. Trend H&H. Transfuse for hgb < 8 hgb 7.8 -> 5.7 -> 8.5 s/p 4 total uPRBC (2 on 06/12; 2 on 06/13) needs tighter monitoring of coumadin consider CT surgery eval, replace mechanical valves to get off coumadin; now 2 hospitalizations NSTEMI CAD s/p PCI (Apr 2023) s/p AVR and MVR on coumadin supratherapeutic INR on admission troponins elevated 63 -> 2251 -> 622, monitor on tele Patient denies chest pain BNP: 3094 CXR (06/11): mild CHF Cardiology consulted continue home plavix, statin, aspirin INR 6.2 on admission; improving Target INR 2.5-3.5 reports coumadin recently changed ~1 week ago; now taking 2.5mg/4mg, alternating dose daily (previously taking 3mg at home) recommend checking INR every 3-4 days on discharge comparatively to once/week 06/14 - INR 3.27; Restart coumadin Chronic back pain Mild Gastritis GERD h/o lupus h/o seizure disorder Anxiety hypothyroidism confirm home medications, restart as appropriate VTE: Restart Coumadin Code: Full Dispo: Home, PT ~1-2 days Pending further improvement of INR, hgb stabilizes
[2023-06-14] MEDS: hydrOXYzine HCL 25 MG TAB PO SCH (09:50)
[2023-06-14] MEDS: ACYCLOVIR 400 MG TABLET PO SCH (09:51)
[2023-06-14] MEDS: LEVOTHYROXINE SOD 0.125 MG TAB PO SCH (09:51)
[2023-06-14] MEDS: VENLAFAXINE HCL 75 MG TABLET PO SCH (09:51)
[2023-06-14] MEDS: CLOPIDOGREL 75 MG TABLET PO SCH (09:51)
[2023-06-14] MEDS: CYCLOBENZAPRINE 10 MG TAB PO SCH ×2 (09:51→20:33)
[2023-06-14] MEDS: PANTOPRAZOLE 40 MG INJ IVP SCH ×2 (09:52→20:32)
[2023-06-14] MEDS: WARFARIN SODIUM 3 MG TAB PO SCH (17:36)
[2023-06-14 20:02] LABS: Hematocrit 23.7 % (36.0-45.0)
[2023-06-14] MEDS: ATORVASTATIN 40 MG TAB PO SCH (20:33)
[2023-06-14] MEDS: DOXEPIN HCL 25 MG CAP PO SCH (20:33)
[2023-06-15 04:58] LABS: Absolute Lymphocytes (CBC) 0.7 K/uL (0.7-4.9); Hematocrit 23.8 % (36.0-45.0); Lymphocytes % 17.2 % (15.3-44.8); MCV 82.3 fL (80-100); MPV 8.3 fL (7.6-11.3); Platelets 200 thou/uL (152-406); RBC Red Blood Cell Count 2.89 M/uL (3.86-4.86)
[2023-06-15 05:01] LABS: Protime INR 2.55
[2023-06-15 05:16] LABS: Potassium 3.2 mEq/L (3.5-5.1)
[2023-06-15] MEDS ORDERED: POTASSIUM 25 MEQ EFFERV TAB PO ONE (08:00)
[2023-06-15] MEDS: CLOPIDOGREL 75 MG TABLET PO SCH (08:22)
[2023-06-15] MEDS: hydrOXYzine HCL 25 MG TAB PO SCH (08:22)
[2023-06-15] MEDS: CYCLOBENZAPRINE 10 MG TAB PO SCH ×2 (08:22→20:57)
[2023-06-15] MEDS: VENLAFAXINE HCL 75 MG TABLET PO SCH (08:22)
[2023-06-15] MEDS: ACYCLOVIR 400 MG TABLET PO SCH (08:23)
[2023-06-15] MEDS: MEDIHONEY 44 ML TOPICAL TUBE TOP SCH (08:23)
[2023-06-15] MEDS: PANTOPRAZOLE 40 MG INJ IVP SCH ×2 (08:26→20:57)
[2023-06-15] MEDS: LEVOTHYROXINE SOD 0.125 MG TAB PO SCH (08:26)
--- NOTE | 2023-06-15 10:31 | P.PN ---
Date of Service: 06/15/23 Subjective: no acute events overnight feels difficulty breathing today - started last night O2 sats > 95 on room air at rest +sore throat afebrile ROS: 10 point ROS as noted above, otherwise negative Physical Exam: GEN: Alert, oriented, NAD HEENT: Normal conjunctiva, sclera anicteric CV: Regular rate and rhythm, no edema Pulm: mild labored respirations on room air, diminished at bases bilaterally ABD: Soft, nontender, nondistended Neuro: Normal speech, normal affect vitals reviewed Problem List: Anemia, acute on chronic; unclear etiology NSTEMI CAD s/p PCI (Apr 2023) s/p AVR and MVR on coumadin supratherapeutic INR on admission Chronic L foot wound Chronic back pain Mild Gastritis GERD h/o lupus h/o seizure disorder Anxiety hypothyroidism Anemia, acute on chronic; unclear etiology suspect secondary to GI bleed, dark stools Unclear etiology. Patient denies any bleeding. reports dark stool since starting iron tablets each admission in last month with supratherapeutic INR Recent EGD last hospitalization (05/14/23): noted mild gastritis; no other findings or active GI bleed seen does report some dark stool, started when taking PO iron Recommend colonoscopy in next few weeks for further evaluation given recurrent bleeds / last colonoscopy ~3+ years. Trend H&H. Transfuse for hgb < 8 hgb 8.5 -> 7.9 -> 8.0 s/p 4 total uPRBC (2 on 06/12; 2 on 06/13) needs tighter monitoring of coumadin needs CT surgery eval as outpatient, replace mechanical valves to get off coumadin; now 2 hospitalizations NSTEMI CAD s/p PCI (Apr 2023) s/p AVR and MVR on coumadin supratherapeutic INR on admission troponins elevated 63 -> 2251 -> 622, monitor on tele Patient denies chest pain BNP: 3094 CXR (06/11): mild CHF repeat CXR ordered (06/15) eval pulm edema Cardiology consulted continue home plavix, statin, aspirin INR 6.2 on admission; improving Target INR 2.5-3.5 reports coumadin recently changed ~1 week ago; now taking 2.5mg/4mg, alternating dose daily (previously taking 3mg at home) recommend checking INR every 3-4 days on discharge comparatively to once/week continue coumadin 3mg for now Chronic L foot wound local wound care with [facility] Chronic back pain Mild Gastritis GERD h/o lupus h/o seizure disorder Anxiety hypothyroidism confirm home medications, restart as appropriate VTE: Coumadin Code: Full Dispo: Home with HH ~1-2 days Pending further improvement of INR, hgb stabilizes
[2023-06-15] MEDS ORDERED: KCL 20 MEQ/100 mL IVPB 20 MEQ/100 ML BAG IV SCH (11:00)
--- NOTE | 2023-06-15 11:28 | RAD REPORT ---
[facility]20[facility] 11:08 am CLINICAL HISTORY: Short of breath, eval pulm edema COMPARISON: Chest Single View dated 06/11/2023; Chest Single View dated 05/13/2023; Chest Single View dated 04/21/2023; Chest Single View dated 04/17/2023 TECHNIQUE: Portable AP view of the chest. FINDINGS: Central interstitial prominence, progressive since the prior exam. No pneumothorax or eff usion. Mildly progressive cardiomegaly. Mediastinal contours are unremarkable. Valve prostheses in p lace. Sequelae of median sternotomy. IMPRESSION: Progressive central interstitial prominence and cardiomegaly, suggestive of CHF.
[2023-06-15] MEDS ORDERED: FUROSEMIDE 20 MG/ 2ML VIAL IV ONE (14:03)
--- NOTE | 2023-06-15 14:19 | EKG ---
Test Date: 2023-06-12 Test Time: 16:46:35 Roller Print Tender: DEZ MEASUREMENT RESULTS: Intervals: Rate: 101 NH: 162 QRSD: 96 QT: 374 QTc: 484 [place]: P: 82 NH: 162 QRS: 13 T: 115 INTERPRETIVE STATEMENTS: Sinus tachycardia Septal infarct, age undetermined T wave abnormality, consider lateral ischemia Abnormal ECG Compared to ECG 06/11/2023 17:44:42 Myocardial infarct finding now present T-wave abnormality still present Possible ischemia still present Electronically Signed On 06-15-23 14:10:03 1ST GRADE TEACHER by Stuart Crespo
--- NOTE | 2023-06-15 14:25 | EKG ---
Test Date: 2023-06-11 Test Time: 17:44:42 Builder Operator: NEAL MEASUREMENT RESULTS: Intervals: Rate: 104 MN: 184 QRSD: 96 QT: 370 QTc: 486 [place]: P: MN: 184 QRS: 50 T: 112 INTERPRETIVE STATEMENTS: Sinus tachycardia T wave abnormality, consider anterolateral ischemia Abnormal ECG Compared to ECG 05/13/2023 11:47:49 No significant changes Electronically Signed On 06-15-23 14:14:11 OXYHYDROGEN WELDER by Stuart Crespo
[2023-06-15] MEDS: WARFARIN SODIUM 3 MG TAB PO SCH (16:41)
[2023-06-15] MEDS: DOXEPIN HCL 25 MG CAP PO SCH (20:57)
[2023-06-15] MEDS: ATORVASTATIN 40 MG TAB PO SCH (20:57)
[2023-06-15] MEDS: CODEINE 30MG/APAP 300MG TAB PO PRN (22:25)
[2023-06-16 04:58] LABS: Hematocrit 23.8 % (36.0-45.0); MCV 82.8 fL (80-100); MPV 8.3 fL (7.6-11.3); Platelets 218 thou/uL (152-406); RBC Red Blood Cell Count 2.88 M/uL (3.86-4.86)
[2023-06-16 05:07] LABS: Protime INR 2.38
[2023-06-16] MEDS ORDERED: FUROSEMIDE 40 MG TABLET PO ONE ×2 (06:21→15:00)
[2023-06-16] MEDS: KCL 20 MEQ/100 mL IVPB 20 MEQ/100 ML BAG IV SCH ×4 (06:48→22:06)
[2023-06-16] MEDS: LEVOTHYROXINE SOD 0.125 MG TAB PO SCH (07:30)
[2023-06-16] MEDS: ACYCLOVIR 400 MG TABLET PO SCH (09:48)
[2023-06-16] MEDS: CYCLOBENZAPRINE 10 MG TAB PO SCH ×2 (09:48→20:13)
[2023-06-16] MEDS: CLOPIDOGREL 75 MG TABLET PO SCH (09:48)
[2023-06-16] MEDS: VENLAFAXINE HCL 75 MG TABLET PO SCH (10:08)
[2023-06-16] MEDS: PANTOPRAZOLE 40 MG INJ IVP SCH ×2 (10:08→20:15)
[2023-06-16] MEDS: MEDIHONEY 44 ML TOPICAL TUBE TOP SCH (10:08)
[2023-06-16] MEDS: hydrOXYzine HCL 25 MG TAB PO SCH (10:08)
--- NOTE | 2023-06-16 10:55 | P.PN ---
Date of Service: 06/16/23 Subjective: Feeling better today no acute events overnight Breathing more comfortably on room air at rest compared to yesterday no BM today afebrile ROS: 10 point ROS as noted above, otherwise negative Physical Exam: GEN: Alert, oriented, NAD HEENT: Normal conjunctiva, sclera anicteric CV: Regular rate and rhythm, no edema Pulm: nonlabored respirations on room air, diminished at bases bilaterally ABD: Soft, nontender, nondistended Neuro: Normal speech, normal affect vitals reviewed Problem List: Anemia, acute on chronic; secondary to GI bleed in setting of supratherapeutic INR NSTEMI CAD s/p PCI (Apr 2023) s/p AVR and MVR on coumadin supratherapeutic INR on admission Chronic L foot wound Chronic back pain Mild Gastritis GERD h/o lupus h/o seizure disorder Anxiety hypothyroidism Anemia, acute on chronic; secondary to GI bleed in setting of supratherapeutic INR suspect secondary to GI bleed, dark stools each admission in last month with supratherapeutic INR Recent EGD last hospitalization (05/14/23): noted mild gastritis; no other findings or active GI bleed seen does report some dark stool, started when taking PO iron Recommend colonoscopy in next few weeks for further evaluation given recurrent bleeds / last colonoscopy ~3+ years. hgb 8.0 -> 8.2 (06/16); stable no further BMs in last 48hrs s/p 4 total uPRBC (2 on 06/12; 2 on 06/13) needs tighter monitoring of coumadin needs CT surgery eval as outpatient, replace mechanical valves to get off coumadin; now 2 hospitalizations discussed with cardiology 06/15, reviewed recent echo, noted pressure gradient near 12 across mitral valve; recommended valve replacement patient states she wants to see her CT surgeon, Dr. Leland Amador of [facility], who placed mechanical valves ~20 yrs ago. She has not seen him in a very long time will attempt to call and get a hold of him NSTEMI CAD s/p PCI (Apr 2023) s/p AVR and MVR on coumadin supratherapeutic INR on admission troponins elevated 63 -> 2251 -> 622, monitor on tele Patient denies chest pain BNP: 3094 CXR (06/11): mild CHF repeat CXR (06/15): progressive central insterstitial prominence and cardiomegaly, suggestive of CHF given IV lasix x1 (06/15) Cardiology consulted continue home plavix, statin aspirin dc'd, ~2 months since PCI; discussed with cardiology INR 6.2 on admission; improving Target INR 2.5-3.5 reports coumadin recently changed ~1 week ago; now taking 2.5mg/4mg, alternating dose daily (previously taking 3mg at home) recommend checking INR every 3-4 days on discharge comparatively to once/week continue coumadin 3mg for now Chronic L foot wound local wound care with [facility] Chronic back pain Mild Gastritis GERD h/o lupus h/o seizure disorder Anxiety hypothyroidism confirm home medications, restart as appropriate VTE: Coumadin Code: Full Dispo: Home with HH ~1-2 day vs transfer for [address] surgery Pending further improvement, hgb remains stable
[2023-06-16] MEDS: NA CHLORIDE 0.9% 1,000 ML IV SCH (13:56)
[2023-06-16] MEDS: WARFARIN SODIUM 3 MG TAB PO SCH (18:07)
[2023-06-16] MEDS: DOXEPIN HCL 25 MG CAP PO SCH (20:13)
[2023-06-16] MEDS: ATORVASTATIN 40 MG TAB PO SCH (20:14)
[2023-06-16] MEDS: CODEINE 30MG/APAP 300MG TAB PO PRN (22:05)
[2023-06-17 05:37] LABS: Hematocrit 25.5 % (36.0-45.0); MPV 8.6 fL (7.6-11.3); Platelets 269 thou/uL (152-406); Protime INR 2.36; RBC Red Blood Cell Count 3.07 M/uL (3.86-4.86)
[2023-06-17 05:47] LABS: Magnesium 1.7 mg/dL (1.6-2.4); Potassium 3.4 mEq/L (3.5-5.1)
[2023-06-17] MEDS: KCL 20 MEQ/100 mL IVPB 20 MEQ/100 ML BAG IV SCH ×2 (06:48→09:07)
[2023-06-17] MEDS: ACYCLOVIR 400 MG TABLET PO SCH (09:05)
[2023-06-17] MEDS: CYCLOBENZAPRINE 10 MG TAB PO SCH (09:05)
[2023-06-17] MEDS: LEVOTHYROXINE SOD 0.125 MG TAB PO SCH (09:05)
[2023-06-17] MEDS: CLOPIDOGREL 75 MG TABLET PO SCH (09:06)
[2023-06-17] MEDS: hydrOXYzine HCL 25 MG TAB PO SCH (09:06)
--- NOTE | 2023-06-17 11:23 | P.PN ---
Date of Service: 06/17/23 Subjective: Feeling better today Patient able to get in contact with CT surgeon's office today plan to discuss case over the phone ~noon today Breathing more comfortably on room air; ambulating afebrile ROS: 10 point ROS as noted above, otherwise negative Physical Exam: GEN: Alert, oriented, NAD HEENT: Normal conjunctiva, sclera anicteric CV: Regular rate and rhythm, no edema Pulm: nonlabored respirations on room air, diminished at bases bilaterally ABD: Soft, nontender, nondistended Neuro: Normal speech, normal affect vitals reviewed Problem List: Anemia, acute on chronic; secondary to GI bleed in setting of supratherapeutic INR NSTEMI CAD s/p PCI (Apr 2023) s/p AVR and MVR on coumadin supratherapeutic INR on admission Chronic L foot wound Chronic back pain Mild Gastritis GERD h/o lupus h/o seizure disorder Anxiety hypothyroidism Anemia, acute on chronic; secondary to GI bleed in setting of supratherapeutic INR suspect secondary to GI bleed, dark stools each admission in last month with supratherapeutic INR Recent EGD last hospitalization (05/14/23): noted mild gastritis; no other findings or active GI bleed seen does report some dark stool, started when taking PO iron Recommend colonoscopy in next few weeks for further evaluation given recurrent bleeds / last colonoscopy ~3+ years. hgb stable no further BMs in last 48hrs s/p 4 total uPRBC (2 on 06/12; 2 on 06/13) needs tighter monitoring of coumadin needs CT surgery eval as outpatient, replace mechanical valves to get off coumadin; now 2 hospitalizations discussed with cardiology 06/15, reviewed recent echo, noted pressure gradient near 12 across mitral valve; recommended valve replacement patient states she wants to see her CT surgeon, Dr. Leland Amador of [facility], who placed mechanical valves ~20 yrs ago. She has not seen him in a very long time 06/[address] surgeon office; plan to discuss case today with Dr. Amador NSTEMI CAD s/p PCI (Apr 2023) s/p AVR and MVR on coumadin supratherapeutic INR on admission troponins elevated 63 -> 2251 -> 622, monitor on tele Patient denies chest pain BNP: 3094 CXR (06/11): mild CHF repeat CXR (06/15): progressive central insterstitial prominence and cardiomegaly, suggestive of CHF given lasix x2 (06/15, 06/16) Cardiology consulted continue home plavix, statin aspirin dc'd, ~2 months since PCI; discussed with cardiology INR 6.2 on admission; improving Target INR 2.5-3.5 reports coumadin recently changed ~1 week ago; now taking 2.5mg/4mg, alternating dose daily (previously taking 3mg at home) recommend checking INR every 3-4 days on discharge comparatively to once/week continue coumadin 3mg for now Chronic L foot wound local wound care with [facility] Chronic back pain Mild Gastritis GERD h/o lupus h/o seizure disorder Anxiety hypothyroidism confirm home medications, restart as appropriate VTE: Coumadin Code: Full Dispo: Home with HH ~1 day vs transfer for [address] surgery Pending further improvement, hgb remains stable
--- NOTE | 2023-06-17 12:28 | P.DS ---
Admission Date: 06/11/23 Discharge Date: 06/17/23 Reason for Admission: Anemia Consultations: Cardiology - Dr. Crespo Brief History of Present Illness: 62yo F, PMH: mitral and aortic valve replacement and is on Coumadin 2.5 mg / 4 mg on alternate days, chronic back pain, degenerative joint disease, arterial insufficiency, PAD, GERD, lumbar radiculitis, lupus, history of osteomyelitis, anxiety, CAD, TIA, history of seizures, history of pulmonary edema, history of cerebritis, Patient presented to the ER with generalized weakness and fatigue. Patient denies any bleeding. No fever or chills. No chest pain or shortness of breath. No nausea vomiting or diarrhea. Patient stated that she does not have melena but her stool is dark because of iron tablets she is on. Denies any abdominal pain. Patient was assessed in the ER and was found to have anemia of hemoglobin of 6.1 and hypercoagulability with INR more than 6.38 and was admitted for further management Hospital Course: Problem List: Anemia, acute on chronic; secondary to GI bleed in setting of supratherapeutic INR NSTEMI CAD s/p PCI (Apr 2023) s/p AVR and MVR on coumadin supratherapeutic INR on admission Chronic L foot wound Chronic back pain Mild Gastritis GERD h/o lupus h/o seizure disorder Anxiety hypothyroidism Patient presented with generalized weakness, fatigue, dark stool. On admission patients hgb was noted to be 6.1. Recent EGD from last hospitalization on 05/14 noted mild gastritis. no other findings / active bleed seen. Patient denied any obvious bleeds but did report dark stool that started when taking PO iron. Hgb improved to 7.8 after 2 uPRBC, however dropped down to 5.7 the next day and required 2 more uPRBC (06/13). No further transfusions needed since 06/13. Suspect multifactorial etiology secondary to supratherapeutic INR / on plavix due to recent PCI. Recommend colonoscopy in next few weeks for further evaluation given recurrent bleeds / last colonoscopy was 3+ years ago. Recommend repeat blood work with PCP in ~1 week to monitor hemoglobin. Hgb remained stable in low 8s for rest of her hospitalization. hgb on discharge: 8.3 During her hospitalization, troponins were elevated. EKG without STEMI criteria. BNP elevated (3094). CXR suggestive of mild CHF. Cardiology was consulted. suspect demand ischemia / anemia. No further cardiac workup this hospitalization. Coumadin was held due to supratherapueitc INR on admission of 6.2 and was restarted once INR was in target range of 2.5-3.5. Advised to check INR every 3-4 days on discharge comparatively to once/week. Given recurrent episodes, recommend CT surgery eval to replace mechanical valves to get off coumadin. On day of discharge, discussed case with Dr. Amadro (CT surgeon who placed mechanical valves ~20 yrs ago), who recommended following up as outpatient for surgical eval and to call to make an appointment. Medication: Stop aspirin (been on for ~2months since PCI. no longer need to take per cardio) continue other home medications as previously prescribed. Follow up: PCP 3-5 days Cardiology 1-[address] surgery eval - Call to make appointment Of note: wound culture of lower left extremity was preliminary shown to be growing gram negative rods. Patient asymptomatic. No overt signs of infection. Patient remained afebrile without leukocytosis throughout hospitalization. No antibiotics warranted on discharge. Physical Exam: GEN: Alert, oriented, NAD HEENT: Normal conjunctiva, sclera anicteric CV: Regular rate and rhythm, no edema Pulm: nonlabored respirations on room air, diminished at bases bilaterally ABD: Soft, nontender, nondistended Neuro: Normal speech, normal affect Vital Signs/Physical Exam: Temp Pulse Resp BP Pulse Ox 97.6 F 94 H 16 109/73 99 06/17/23 12:00 06/17/23 12:00 06/17/23 12:00 06/17/23 12:00 06/17/23 12:00 Laboratory Data at Discharge: WBC 4.30 thou/uL (4.3-10.9) 06/17/23 04:50 Hgb 8.3 g/dL (12.0-15.0) L 06/17/23 04:50 Hct 25.5 % (36.0-45.0) L 06/17/23 04:50 Plt Count 269 thou/uL (152-406) 06/17/23 04:50 PT 26.0 SECONDS (9.5-12.5) H 06/17/23 04:50 INR 2.36 06/17/23 04:50 Sodium 141 mEq/L (136-145) 06/17/23 04:50 Potassium 3.4 mEq/L (3.5-5.1) L 06/17/23 04:50 BUN 15 mg/dL (7-18) 06/17/23 04:50 Creatinine 0.88 mg/dL (0.55-1.02) 06/17/23 04:50 Glucose 104 mg/dL (74-106) 06/17/23 04:50 Magnesium 1.7 mg/dL (1.6-2.4) 06/17/23 04:50 Total Bilirubin 0.4 mg/dL (0.2-1.0) 06/12/23 14:14 AST 21 U/L (15-37) 06/12/23 14:14 ALT 12 U/L (13-56) L 06/12/23 14:14 Alkaline Phosphatase 55 U/L (45-117) 06/12/23 14:14 Home Medications: Levothyroxine [Synthroid*] 125 mcg PO DAILY 11/11/19 Omeprazole [Prilosec] 40 mg PO DAILY 11/11/19 Venlafaxine HCl [Effexor*] 150 mg PO DAILY 11/11/19 Acyclovir 400 mg PO DAILY 11/01/20 Cyclobenzaprine [Flexeril*] 10 mg PO BID 11/01/20 predniSONE [Prednisone] 2.5 mg PO DAILY #7 tablet 05/31/21 Aspirin [Ecotrin 81 MG] 162 mg PO DAILY #60 tab 04/24/23 Atorvastatin Calcium [Lipitor] 40 mg PO BEDTIME #30 tab 04/24/23 Clopidogrel Bisulfate [Plavix] 75 mg PO DAILY #30 tab 04/24/23 Warfarin Sodium [Coumadin*] 4 mg PO DAILY AT SUPPER #30 tab 04/24/23 Doxepin HCl 100 mg PO BEDTIME 05/14/23 Nitroglycerin 0.4 mg SL PRN PRN 05/14/23 hydrOXYzine HCL [Atarax*] 25 mg PO DAILY 05/14/23 traMADol HCL [Ultram*] 50 mg PO TID PRN 05/14/23 Codeine/APAP [Tylenol #3*] 1 tab PO Q6H PRN #10 tab 05/20/23 Ferrous Sulfate [Iron] 325 mg PO DAILY 30 Days #30 tab 05/20/23 Physician Discharge Instructions: Patient presented with generalized weakness, fatigue, dark stool. On admission patients hgb was noted to be 6.1. Recent EGD from last hospitalization on 05/14 noted mild gastritis. no other findings / active bleed seen. Patient denied any obvious bleeds but did report dark stool that started when taking PO iron. Hgb improved to 7.8 after 2 uPRBC, however dropped down to 5.7 the next day and required 2 more uPRBC (06/13). No further transfusions needed since 06/13. Suspect multifactorial etiology secondary to supratherapeutic INR / on plavix due to recent PCI. Recommend colonoscopy in next few weeks for further evaluation given recurrent bleeds / last colonoscopy was 3+ years ago. Recommend repeat blood work with PCP in ~1 week to monitor hemoglobin. Hgb remained stable in low 8s for rest of her hospitalization. hgb on discharge: 8.3 During her hospitalization, troponins were elevated. EKG without STEMI criteria. BNP elevated (3094). CXR suggestive of mild CHF. Cardiology was consulted. suspect demand ischemia / anemia. No further cardiac workup this hospitalization. Coumadin was held due to supratherapueitc INR on admission of 6.2 and was restarted once INR was in target range of 2.5-3.5. Advised to check INR every 3-4 days on discharge comparatively to once/week. Given recurrent episodes, recommend CT surgery eval to replace mechanical valves to get off coumadin. On day of discharge, discussed case with Dr. Amador (CT surgeon who placed mechanical valves ~20 yrs ago), who recommended following up as outpatient for surgical eval and to call to make an appointment. Medication: Stop aspirin (been on for ~2months since PCI. no longer need to take per cardio) continue other home medications as previously prescribed. Follow up: PCP 3-5 days Cardiology 1-[address] surgery eval - Call to make appointment Followup: Ham MCKEON,Kayce Jensen DO [Primary Care Provider] - Time spent managing pt's care (in minutes): 45
[2023-06-17 12:33] VITALS: O2SAT 99
[2023-06-17] MEDS: MEDIHONEY 44 ML TOPICAL TUBE TOP SCH (12:49)
[2023-06-17 16:12] VITALS: BP 115/71; TEMP 97.9
== END 2023-06-17 16:00 | disposition home health service (06) | DRG 377 ==
LOC: ER 17:02 → ERHOLD 19:27 → 2ND 20:16
PROVIDERS: ADMIT Family Medicine; ATTEND Hospitalist
PROC: 30233N1 Transfusion of Nonautologous Red Blood Cells into Peripheral Vein, Percutaneous Approach (ICD-10-PCS; principal; 2023-06-11)
DX: K92.2 Gastrointestinal hemorrhage, unspecified (principal); I21.A1 Myocardial infarction type 2; D68.9 Coagulation defect, unspecified; D64.9 Anemia, unspecified; I50.9 Heart failure, unspecified; F41.9 Anxiety disorder, unspecified; K29.70 Gastritis, unspecified, without bleeding; M32.9 Systemic lupus erythematosus, unspecified; E03.9 Hypothyroidism, unspecified; G89.29 Other chronic pain; M54.9 Dorsalgia, unspecified; K21.9 Gastro-esophageal reflux disease without esophagitis; G40.909 Epilepsy, unspecified, not intractable, without status epilepticus; I25.10 Atherosclerotic heart disease of native coronary artery without angina pectoris; T45.515A Adverse effect of anticoagulants, initial encounter; I25.2 Old myocardial infarction; Z60.2 Problems related to living alone; Z88.6 Allergy status to analgesic agent; Z88.5 Allergy status to narcotic agent; Z95.2 Presence of prosthetic heart valve; Z88.0 Allergy status to penicillin; Z88.8 Allergy status to other drugs, medicaments and biological substances; Z98.51 Tubal ligation status; Z79.52 Long term (current) use of systemic steroids; Z79.82 Long term (current) use of aspirin; Z79.01 Long term (current) use of anticoagulants; Z79.899 Other long term (current) drug therapy; Z79.890 Hormone replacement therapy; Z96.643 Presence of artificial hip joint, bilateral; Z91.048 Other nonmedicinal substance allergy status; Z89.422 Acquired absence of other left toe(s); Z96.651 Presence of right artificial knee joint
CPT/HCPCS: 36415; 36430; 71045; 80048; 80053; 83735; 83880; 84132; 84484; 85014; 85018; 85025; 85027; 85610; 86850; 86900; 86901; 86920; 87070; 87077; 87186; 87205; 93005; 94760; 96374; 99285; A4216; C9113; J0696; J1940; J3480; J7030; J7040; J7050; P9016

== ENCOUNTER 2024-06-03 21:43 | Emergency (ER) | payer OTHER ==
--- NOTE | 2024-06-03 22:30 | RAD REPORT ---
EXAMINATION: ONE VIEW CHEST XR CLINICAL INDICATION: COUGH TECHNIQUE: Frontal chest projection is submitted. Examination is limited by patient positioning and t echnique. COMPARISON: 06/15/2023 FINDINGS: Mild interstitial pulmonary edema. The heart is moderately enlarged in size. No displaced fractures i dentified. Sternotomy wires present. IMPRESSION: Mild CHF.
[2024-06-03 23:16] LABS: Absolute Eosinophils 0.1 K/uL (0-0.5); Absolute Lymphocytes (CBC) 0.6 K/uL (0.7-4.9); Absolute Monocytes 0.7 K/uL (0.1-1.3); Basophils % 0.3 % (0-1.3); Eosinophils % 0.7 % (0-4.4); Hematocrit 32.3 % (36.0-45.0); Hemoglobin 10.7 g/dL (12.0-15.0); Lymphocytes % 6.8 % (15.3-44.8); MCH 26.4 pg (27.0-35.0); MCHC 33.1 g/dL (32.0-36.0); MPV 8.9 fL (7.6-11.3); Monocytes % 8.1 % (3.3-12.3); Neutrophils % 84.1 % (41.7-73.7); Platelets 267 thou/uL (152-406); RBC Red Blood Cell Count 4.04 M/uL (3.86-4.86); Red Cell Distribution Width 16.4 % (12.1-15.2)
[2024-06-03 23:32] LABS: PT Prothrombin Time 17.1 SECONDS (9.4-12.5); PTT, Activated Partial Thromb 29.8 SECONDS (24.3-36.9); Protime INR 1.55
[2024-06-03 23:34] LABS: Albumin 3.1 g/dL (3.4-5.0); Albumin/Globulin Ratio 0.7 (1.1-1.8); Anion Gap 11.1 mEq/L (5.0-15.0); Bilirubin Total 1.7 mg/dL (0.2-1.0); Globulin 4.6 g/dL (2.3-3.5); Potassium 3.1 mEq/L (3.5-5.1); Protein, Total 7.7 g/dL (6.4-8.2)
[2024-06-03] MEDS ORDERED: NA CHLORIDE 0.9% 1,000 ML ONE (23:37)
[2024-06-04 00:10] LABS: SARS-CoV-2 Antigen CONTROL BLUE LINE VIS/BG OK; SARS-CoV-2 Antigen Rapid Res Negative (Negative)
[2024-06-04] MEDS ORDERED: CEFTRIAXONE 1000 MG/VIAL ONE (01:07)
[2024-06-04] MEDS ORDERED: POTASSIUM 25 MEQ EFFERV TAB ONE (01:07)
[2024-06-04] MEDS ORDERED: ONDANSETRON 4 MG/2 ML VIAL ONE (01:07)
[2024-06-04] MEDS ORDERED: WATER FOR INJ,STERILE 10 ML ONE (02:25)
[2024-06-04 03:53] LABS: Specific Gravity 1.026 (1.005-1.030); Sqamous Epithelial <5 /HPF (None Seen); Transitional Epithelial <5 /HPF (None Seen); Urine Bacteria >50 /HPF (<20); Urine Bilirubin 1+ (Negative); Urine Blood 1+ (Negative); Urine Clarity Extremely Turbid (Clear); Urine Color Dark-Yellow (Yellow); Urine Culture Reflex Order REFLEXED; Urine Glucose NEGATIVE (Negative); Urine Ketones 1+ (Negative); Urine Microscopic Reflex YN ORDER UMIC; Urine Mucus 2+ /HPF (None Seen); Urine Nitrite NEGATIVE (Negative); Urine Protein 2+ (Negative); Urine Urobilinogen 3+ (Normal); Urine WBC >50 /HPF (<5); Urine WBC Clump Few /HPF (None Seen)
--- NOTE | 2024-06-04 05:26 | EDPHYS ---
Physician Documentation [facility] Name: Kim Aldana Age: 63 yrs Sex: Female : 1960 Arrival Date: 06/03/2024 Time: 21:43 Bed 4 Private MD: Kayce Cheek H ED Physician Kevon Omer HPI: 06/04 00:54 This 63 yrs old Female presents to ER via Wheelchair with complaints of confusion, kb cough. 00:54 Patient is a 63-year-old female who is brought in by her daughter for weakness and kb intermittent confusion. States patient has had cough and congestion for 4 days, became weak yesterday. States weakness has progressed today and patient has had intermittent episodes of confusion. States patient's urine had a foul odor today. Denies fever, vomiting, diarrhea.. Historical: - Allergies: 06/03 21:55 Aspirin; kl 21:55 Compazine; kl 21:55 Methadone; kl 21:55 Morphine; kl 21:55 Neurontin; kl 21:55 PENICILLINS; kl 21:55 Phenergan; kl 21:55 plastic tape; kl 21:55 Suboxone; kl - PMHx: 21:55 Anemia; arterial insuficiency; Back pain; cerebritis; chest pain; Chronic pain; kl dejenteritive joint disease; Dyspepsia; esophageal reflux; fatigue; hypersomnia; lumbar radiculitis; Lupus; menopause; Myocardial infarction; osteomyelitis; Panic Attacks; pulmonary edema; Seizures; Tachycardia; TIA; venous insufficiency; - PSHx: 21:55 bowel resection; breast reduction bilateral; hip replacement bilateral; Mitral and kl Aortic Valve replacement; right total knee; - Immunization history:: Adult Immunizations not up to date. - Infectious Disease History:: Denies. - Social history:: Smoking status: Patient/guardian denies using tobacco, the patient reports quitting approximately 1.5 years ago. ROS: 06/04 00:22 Constitutional: As per HPI kb Exam: 00:22 Constitutional: This is a well developed, well nourished patient who is awake, alert, kb and in no acute distress. Head/Face: Normocephalic, atraumatic. ENT: Moist Mucous membranes Cardiovascular: Regular rate Respiratory: Respirations even and unlabored. No increased work of breathing. Talking in full sentences Abdomen/GI: Soft, non-tender. No distention Skin: Warm, dry with normal turgor. Normal color. MS/ Extremity: Pulses equal, no cyanosis. Neurovascular intact. Full, normal range of motion. 00:22 ECG was reviewed by the Attending Physician. 00:54 Neuro: Orientation: to person, place, situation, Motor: moves all fours, kb Vital Signs: 06/03 21:50 BP 97 / 68; Pulse 114; Resp 22; Temp 99.4(O); Pulse Ox 96% on R/A; Weight 63.5 kg (R); kl Height 5 ft. 7 in. ; Pain 0/10; 23:30 BP 92 / 72; Pulse 114; Resp 24; Temp 99.2(O); Pulse Ox 96% on R/A; jb4 06/04 00:30 BP 116 / 69; Pulse 120; Resp 23; Pulse Ox 96% on R/A; jb4 01:00 BP 141 / 85; Pulse 112; Resp 20; Pulse Ox 96% on R/A; jb4 02:00 BP 98 / 67; Pulse 111; Resp 20; Pulse Ox 95% on R/A; jb4 03:15 BP 108 / 93; Pulse 112; Resp 23; Temp 97.7(TE); Pulse Ox 94% on R/A; jb4 04:30 BP 108 / 93; Pulse 107; Resp 22; Pulse Ox 91% on R/A; mt4 04:30 Pulse Ox 92% on R/A; mt4 05:00 BP 114 / 73; Pulse 111; Resp 26; Pulse Ox 92% on R/A; mt4 06:08 BP 130 / 65; Pulse 109; Resp 26; Temp 97.7; Pulse Ox 93% ; Pain 0/10; bm8 06/03 21:50 Body Mass Index 21.93 (63.50 kg, 170.18 cm) kl 06/03 21:50 Pain Scale: Adult kl 06:08 Pain Scale: Adult bm8 Laina Coma Score: 06:08 Eye Response: spontaneous(4). Motor Response: obeys commands(6). Verbal Response: bm8 oriented(5). Total: 15. MDM: 06/03 21:59 Medical Screening Exam initiated kb 06/04 00:53 Data reviewed: vital signs, nurses notes. Historians other than the Patient: kb Daughter/Son: deuce. Transition of care: After a detail discussion of the patient's case, care is transferred to Kevon Omer MD. 06/03 22:04 Order name: Blood Culture Adult (2) kb 06/03 22:04 Order name: CBC with Diff; Complete Time: 23:22 kb 06/03 22:04 Order name: CMP; Complete Time: 23:36 kb 06/03 22:04 Order name: Lactate w/ 2H reflex if indic.; Complete Time: 00:08 kb 06/03 22:04 Order name: Protime (+inr); Complete Time: 23:33 kb 06/03 22:04 Order name: Ptt, Activated; Complete Time: 23:33 kb 06/03 22:04 Order name: Urinalysis w/ reflexes; Complete Time: 04:31 kb 06/03 22:04 Order name: Flu; Complete Time: 00:12 kb 06/03 22:04 Order name: SARS-COV-2 Antigen Rapid; Complete Time: 00:12 kb 06/04 03:59 Order name: Urine Culture EDKY 06/03 22:04 Order name: Chest Single View XRAY; Complete Time: 22:30 kb 06/04 02:07 Order name: Chest Single View EDKY 06/03 22:04 Order name: Accucheck; Complete Time: 23:44 kb 06/03 22:04 Order name: Cardiac monitoring; Complete Time: 23:09 kb 06/03 22:04 Order name: EKG - Nurse/Tech; Complete Time: 23:09 kb 06/03 22:04 Order name: IV Saline Lock - Large Bore; Complete Time: 23:44 kb 06/03 22:04 Order name: Labs collected and sent; Complete Time: 23:24 kb 06/03 22:04 Order name: O2 Per Protocol; Complete Time: 23:24 kb 06/03 22:04 Order name: O2 Sat Monitoring; Complete Time: 23:24 kb 06/03 22:04 Order name: Vital Signs; Complete Time: 23:24 kb 06/04 01:36 Order name: Rodriguez; Complete Time: 02:53 jb4 EC:22 Rate is 112 beats/min. QRS interval is normal at 102 msec. QT interval is prolonged at kb 521 msec. Administered Medications: 02:35 Discontinued: ns 0.9% (30 ml/kg) 30 ml/kg IV at bolus once; Sepsis Protocol; to be jb4 given as a bolus over 90 minutes 06/03 23:44 Drug: NS 0.9% IV (30 ml/kg) 30 ml/kg IV at bolus once; Sepsis Protocol; to be given as jb4 a bolus over 90 minutes Route: IV; Rate: bolus; Site: left antecubital; 06/04 00:30 Follow up: IV Pause: 06/04/2024 00:30; IV Pause Reason: Limited IV access/Medication jb4 interaction; paused to to IV infiltration. 06:16 Follow up: Response: No adverse reaction; IV Status: Order to discontinue infusion; IV bm8 Intake: 200ml 02:35 Not Given (Patient Refused): potassiumeffervescent tablet 50 meq PO once; dissolve in 4 jb4 ounces of water or juice 02:35 Not Given (Other Intervention Used): rocephin1 grams IV at bolus once; Given slow IV jb4 push per pharmacy instructions 02:35 Drug: Rocephin (cefTRIAXone) IM 1 grams IM once Route: IM; Site: right gluteus; jb4 05:41 Follow up: Response: No adverse reaction mt4 02:36 Not Given (Other Intervention Used): ondansetron 4 mg IVP once; over 2 minutes jb4 02:36 Drug: Zofran IM 4 mg IM once Route: IM; Site: right gluteus; jb4 05:41 Follow up: Response: No adverse reaction mt4 Disposition: 05:01 I reviewed the patient's care provided by Advanced Practice Provider \\T\\ agree w/ the bo1 diagnosis \\T\\ care plan. I personally saw the pt \\T\\ performed a substantive portion of the visit, incldng all aspects of the (History/Exam/Medical Decision Making). Reviewed all lab and imaging studies. Attempted central line placement - right subclavian w/o access due to pt intolerance. Pt recoiled in "pain" when J-wire was being advanced. Site of right subclavian shows prior scars. Attempts by staff ER nurses unsuccessful. Pt has been given IM Rocephin. . 05:11 Pt is being transferred to [facility] for higher level of care. No IR military personnel specialist, no bo1 beds being available at [facility] and PICC team (unknown time of coverage) is not available. Pt seems stable for now with increased HR. Pt's [id number] agrees to the DT transfer as agreed to by the pt herself. Transfer at [facility] contacted. Discussed with Dr Espinoza \\T\\ MICU - not meeting criteria. Discussed with Dr Ariana FRANCIS - accepting \\Michelle\\ [facility] for tele med surg admit. Possible ER to ER if pt decompensates.. Disposition Summary: 06/04/24 05:26 Transfer Ordered Notes: Transfer Location: Other [facility] Facility bo1 Reason: Higher level of care bo1 Condition: Fair bo1 Problem: new bo1 Symptoms: are unchanged bo1 Accepting Physician: Dr Ariana FRANCIS \\\\ [facility] DT(06/04/24 06:29) bm8 Diagnosis - Tachycardia, unspecified bo1 - UTI/ Urinary tract infection, site not specified bo1 - Dehydration bo1 Discharge Instructions: - Discharge Summary Sheet kmf Forms: - Medication Reconciliation Form kmf - SBAR form kmf Signatures: Dispatcher [employer] EDMS Francisca Lopez, PRETZEL TWISTING MACHINE OPERATOR-C PRETZEL TWISTING MACHINE OPERATOR-Sandhya Tatum RN RN Jayant Tsai, RN RN jb4 Kevon Omer MD MD bo1 Dar Charles RN RN bm8 Alexis Salcedo RN mt4 Corrections: (The following items were deleted from the chart) 00:54 00:22 Constitutional: This is a well developed, well nourished patient who is awake, kb alert, and in no acute distress. Head/Face: Normocephalic, atraumatic. ENT: Moist Mucous membranes Cardiovascular: Regular rate Respiratory: Respirations even and unlabored. No increased work of breathing. Talking in full sentences Abdomen/GI: Soft, non-tender. No distention Skin: Warm, dry with normal turgor. Normal color. MS/ Extremity: Pulses equal, no cyanosis. Neurovascular intact. Full, normal range of motion. kb 01:36 00:03 Straight Cath ordered. kb jb4 06:29 05:26 Dr Ariana FRANCIS \\T\\ [facility] DT bo1 bm8
--- NOTE | 2024-06-04 05:26 | ER ---
Nurse's Notes [facility] Name: Kim Aldana Age: 63 yrs Sex: Female : 1960 Arrival Date: 06/03/2024 Time: 21:43 Bed 4 Private MD: Kayce Cheek H Diagnosis: Tachycardia, unspecified;UTI/ Urinary tract infection, site not specified;Dehydration Presentation: 06/03 21:50 Chief complaint: Patient states: flu symptoms began x 5 days ago symptoms worsening kl reports increase in weakness and lethargy family reports intermittent confusion began this pm. Coronavirus screen: Vaccine status: Patient reports being unvaccinated. Ebola Screen: Patient negative for fever greater than or equal to 101.5 degrees Fahrenheit, and additional compatible Ebola Virus Disease symptoms. Initial Sepsis Screen: Does the patient meet any 2 criteria? RR > 20 per min. Altered Mental Status. HR > 90 bpm. Yes Does the patient have a suspected source of infection? No. Patient's initial sepsis screen is negative. Risk Assessment: Do you want to hurt yourself or someone else? Patient reports no desire to harm self or others. Onset of symptoms was May 30, 2024. 21:50 Method Of Arrival: Wheelchair kl 21:50 Acuity: CABRERA 3 kl Triage Assessment: 21:57 General: Appears in no apparent distress. slender, Behavior is drowsy, quiet. Pain: kl Denies pain. Historical: - Allergies: 21:55 Aspirin; kl 21:55 Compazine; kl 21:55 Methadone; kl 21:55 Morphine; kl 21:55 Neurontin; kl 21:55 PENICILLINS; kl 21:55 Phenergan; kl 21:55 plastic tape; kl 21:55 Suboxone; kl - PMHx: 21:55 Anemia; arterial insuficiency; Back pain; cerebritis; chest pain; Chronic pain; kl dejenteritive joint disease; Dyspepsia; esophageal reflux; fatigue; hypersomnia; lumbar radiculitis; Lupus; menopause; Myocardial infarction; osteomyelitis; Panic Attacks; pulmonary edema; Seizures; Tachycardia; TIA; venous insufficiency; - PSHx: 21:55 bowel resection; breast reduction bilateral; hip replacement bilateral; Mitral and kl Aortic Valve replacement; right total knee; - Immunization history:: Adult Immunizations not up to date. - Infectious Disease History:: Denies. - Social history:: Smoking status: Patient/guardian denies using tobacco, the patient reports quitting approximately 1.5 years ago. Screenin/31 03:[address] [facility] ED Fall Risk Assessment (Adult) History of falling in the last 3 months, bm8 including since admission No falls in past 3 months (0 pts) Confusion or Disorientation No (0 pts) Intoxicated or Sedated No (0 pts) Impaired Gait No (0 pts) Mobility Assist Device Used No (0 pt) Altered Elimination No (0 pt) Score/Fall Risk Level 0 - 2 = Low Risk Oriented to surroundings, Maintained a safe environment, Educated pt \\T\\ family on fall prevention, incl call for assistance when getting out of bed, Assessed \\T\\ reinforced patient's understanding of fall precautions, Hourly rounding (assess needs \\T\\ fall precautionary measures) done, Used ambulatory aids as needed (educated on \\T\\ assisted with), Used gait belt as appropriate. Abuse screen: Denies threats or abuse. Nutritional screening: No deficits noted. Tuberculosis screening: No symptoms or risk factors identified. Assessment: 06/03 22:30 General: Appears in no apparent distress. comfortable, Behavior is calm, cooperative, jb4 appropriate for age, Pt's daughter in law reports pt has been experiencing intermittent confusion and her urine smells like a UTI.. Pain: Denies pain. Neuro: Level of Consciousness is awake, alert, obeys commands, Oriented to person, place, time, situation. Cardiovascular: Patient's skin is warm and dry. Respiratory: Airway is patent Respiratory effort is even, unlabored, Respiratory pattern is regular, symmetrical. GI: Reports nausea. Derm: Skin is intact, Skin is dry, Skin is pale, Skin temperature is warm. Musculoskeletal: Circulation, motion, and sensation intact. Range of motion: intact in all extremities. 06/04 00:00 Reassessment: Patient appears in no apparent distress at this time. Patient and/or jb4 family updated on plan of care and expected duration. Pain level reassessed. Patient is alert, oriented x 3, equal unlabored respirations, skin warm/dry/pink. 00:30 Reassessment: Fluids paused due to Infiltration of ultrasound IV in the left AC. Charge jb4 nurse and provider notified. 00:59 Reassessment: Patient appears in no apparent distress at this time. Patient and/or jb4 family updated on plan of care and expected duration. Pain level reassessed. Patient is alert, oriented x 3, equal unlabored respirations, skin warm/dry/pink. 01:33 Reassessment: Central line consent form signed, report given to MELQUIADES Dodge. jb4 04:53 Reassessment: Daughter in Law Cecily: [phone]. mt4 05:38 Reassessment: report given to Beatrice ARNETT at [facility]. mt4 06:08 Reassessment: Patient appears in no apparent distress at this time. Patient and/or bm8 family updated on plan of care and expected duration. Pain level reassessed. Patient is alert, oriented x 3, equal unlabored respirations, skin warm/dry/pink. pt is resting with eyes closed breathing is even unlabored with symmetrical rise and fall of chest, no distress noted at this time. Vital Signs: 06/03 21:50 BP 97 / 68; Pulse 114; Resp 22; Temp 99.4(O); Pulse Ox 96% on R/A; Weight 63.5 kg (R); kl Height 5 ft. 7 in. ; Pain 0/10; 23:30 BP 92 / 72; Pulse 114; Resp 24; Temp 99.2(O); Pulse Ox 96% on R/A; jb4 06/04 00:30 BP 116 / 69; Pulse 120; Resp 23; Pulse Ox 96% on R/A; jb4 01:00 BP 141 / 85; Pulse 112; Resp 20; Pulse Ox 96% on R/A; jb4 02:00 BP 98 / 67; Pulse 111; Resp 20; Pulse Ox 95% on R/A; jb4 03:15 BP 108 / 93; Pulse 112; Resp 23; Temp 97.7(TE); Pulse Ox 94% on R/A; jb4 04:30 BP 108 / 93; Pulse 107; Resp 22; Pulse Ox 91% on R/A; mt4 04:30 Pulse Ox 92% on R/A; mt4 05:00 BP 114 / 73; Pulse 111; Resp 26; Pulse Ox 92% on R/A; mt4 06:08 BP 130 / 65; Pulse 109; Resp 26; Temp 97.7; Pulse Ox 93% ; Pain 0/10; bm8 06/03 21:50 Body Mass Index 21.93 (63.50 kg, 170.18 cm) kl 06/03 21:50 Pain Scale: Adult kl 06:08 Pain Scale: Adult bm8 Laina Coma Score: 06:08 Eye Response: spontaneous(4). Motor Response: obeys commands(6). Verbal Response: bm8 oriented(5). Total: 15. ED Course: 06/03 21:47 Patient arrived in ED. gm2 21:48 Kayce Cheek DO is Private Physician. gm2 21:55 Triage completed. kl 21:59 [facility] kb 21:59 Kevon Omer MD is Attending Physician. kb 22:13 Jayant Gao, MELQUIADES is Primary Nurse. jb4 22:26 Chest Single View XRAY In Process Unspecified. EDMS 22:40 Missed attempt(s): 22 gauge in right forearm. Bleeding controlled, band aid applied, jb4 catheter tip intact. 22:55 Missed attempt(s): 20 gauge in right forearm. Bleeding controlled, band aid applied, jb4 catheter tip intact. 23:15 Missed attempt(s): 20 gauge in right upper arm. ultrasound guided. Bleeding controlled, bm8 band aid applied, catheter tip intact. 23:30 Inserted saline lock: 20 gauge in left antecubital area, using aseptic technique. bm8 ,using aseptic technique. ultrasound guided Flushed with 10 mL NS. 23:51 Arm band placed on right wrist. EKG completed in triage. Results shown to MD. jb4 06/04 01:30 Missed attempt(s): 20 gauge in left upper arm. ultrasound guided. Bleeding controlled, bm8 band aid applied, catheter tip intact. 02:12 Chest Single View In Process Unspecified. EDMS 02:23 initiated transfer with Janie. km 02:30 Assisted provider with central line placement. Set up central line tray. Triple lumen jb4 line placed in right subclavian. Line placed by Kevon Omer MD Placement was unsuccessfull. Before procedure, did Practitioner(s) obtain informed consent? Yes. Patient \\T\\ family education about procedure, CLABSI prevention and S/S of infection? Yes. Time-out/Briefing performed prior to start of procedure? Yes. Was handwashing/sanitizing done immediately prior to procedure? Yes. Was patient positioned to in a way to prevent air embolism? Yes. Was procedure site sterilized? Yes, with chlorhexidine. Was the site allowed to dry? Yes. Was local anesthetic and/or sedation utilized? Yes. During the procedure, did the Practitioner(s) maintain a sterile field? Yes. 03:19 Patient has correct armband on for positive identification. Placed in gown. Bed in low bm8 position. Call light in reach. Side rails up X 1. Adult w/ patient. Provided Education on: pt educated on need for transfer.. Client placed on continuous cardiac and pulse oximetry monitoring. NIBP monitoring applied. threat monitoring analyst on. Pulse ox on. NIBP on. Door closed. Noise minimized. Warm blanket given. Pillow given. Verbal reassurance given. 05:00 pt was accepted to [facility] 6 [address] bed 28. admin approval given by janie brennan [facility] [address]. accepting Dr. Rahman, M \\T\\ 0441. number for nurse to nurse report [phone]. [facility] to transfer pt. 05:30 EMS arrived per Ann Burns from ems told the crew they were just coming to [facility] attempt a IO access. The conversation with Ann \\T\\ EMS was "The Pt is going to [facility], but does not currently have IV access." in which she replied " that's fine we can IO, if needed.". Once ems arrived they were told they were here to just get a IO, not transfer a pt. They then called Ann to let her know that the cut off time for transfer is 6 am, and they will be declining transfer: Called [facility] to transfer pt. 06:28 Provided Education on: need for transfer. bm8 06:28 Patient did not have IV access during this emergency room visit. bm8 Administered Medications: 02:35 Discontinued: ns 0.9% (30 ml/kg) 30 ml/kg IV at bolus once; Sepsis Protocol; to be jb4 given as a bolus over 90 minutes 06/03 23:44 Drug: NS 0.9% IV (30 ml/kg) 30 ml/kg IV at bolus once; Sepsis Protocol; to be given as jb4 a bolus over 90 minutes Route: IV; Rate: bolus; Site: left antecubital; 06/04 00:30 Follow up: IV Pause: 06/04/2024 00:30; IV Pause Reason: Limited IV access/Medication jb4 interaction; paused to to IV infiltration. 06:16 Follow up: Response: No adverse reaction; IV Status: Order to discontinue infusion; IV bm8 Intake: 200ml 02:35 Not Given (Patient Refused): potassiumeffervescent tablet 50 meq PO once; dissolve in 4 jb4 ounces of water or juice 02:35 Not Given (Other Intervention Used): rocephin1 grams IV at bolus once; Given slow IV jb4 push per pharmacy instructions 02:35 Drug: Rocephin (cefTRIAXone) IM 1 grams IM once Route: IM; Site: right gluteus; jb4 05:41 Follow up: Response: No adverse reaction mt4 02:36 Not Given (Other Intervention Used): ondansetron 4 mg IVP once; over 2 minutes jb4 02:36 Drug: Zofran IM 4 mg IM once Route: IM; Site: right gluteus; jb4 05:41 Follow up: Response: No adverse reaction mt4 Medication: 03:19 VIS not applicable for this client. bm8 Intake: 06:16 IV: 200ml; Total: 200ml. bm8 Outcome: 05:26 ER care complete, transfer ordered by MD. centeno 06:28 Transferred by ground EMS to [facility], Transfer form completed. bm8 X-rays sent w/ patient. 06:28 Condition: stable 06:28 Instructed on follow up and referral plans. the need for transfer, Demonstrated understanding of instructions, follow-up care, 06:29 Patient left the ED. bm8 Addendum: 06/09/2024 09:07 Addendum: Other faxed culture report to [facility] as requested by [facility] transfer b d center. Signatures: Dispatcher [employer] EDMS Francisca Lopez, MARKING MACHINE OPERATOR-C MARKING MACHINE OPERATOR-Geeta Machado Kimberly, RN RN kl Bryson, James, RN RN jb4 Leah Liriano [facility] Shilpa Montes [facility] Kevon Omer MD MD boDar Hull RN RN bm8 Tath, Molinec, RN RN mt4 Corrections: (The following items were deleted from the chart) 06/04 02:56 06/03 22:30 General: Appears in no apparent distress. comfortable, Behavior is calm, jb4 cooperative, appropriate for age, jb4 06/04 03:32 06/03 23:15 Missed attempt(s): 20 gauge in right upper arm. Bleeding controlled, band bm8 aid applied, catheter tip intact. bm8 06/04 03:32 06/03 23:30 Inserted saline lock: 20 gauge in left antecubital area, using aseptic bm8 technique. Flushed with 10 mL NS bm8
--- NOTE | 2024-06-04 05:40 | RAD REPORT ---
EXAM: XR Chest, 1 View CLINICAL HISTORY: The patient is 63 years old and is Female; S/P FAILED CENTRAL LINE PLACEMENT TECHNIQUE: Frontal view of the chest. COMPARISON: No relevant prior studies available. FINDINGS: LUNGS: Unremarkable. No consolidation. PLEURAL SPACE: Unremarkable. No pneumothorax. HEART: The cardiac silhouette is enlarged. A prosthetic cardiac valve is noted. MEDIASTINUM: Unremarkable. Normal mediastinal contour. BONES/JOINTS: Evidence of median sternotomy is noted. No acute fracture. UPPER ABDOMEN: Unremarkable as visualized. IMPRESSION: Cardiomegaly without failure. Electronically signed by: Peggy Hammonds MD 06/04/2024 02:29 AM CDT RP Due to temporary technical issues with the PACS/[employer] reporting system, reports are being natalee d by the in-house radiologist without review as a courtesy to ensure prompt reporting the interpreting radiologist is fully responsible for the content of the report. Transcribed Date/Time: 06/04/2024 5:40 AM
[2024-06-04 06:58] VITALS: TEMP 97.7
[2024-06-04 07:01] VITALS: BP 130/65; O2SAT 93
--- NOTE | 2024-06-04 11:07 | EKG ---
Test Date: 2024-06-03 Test Time: 23:05:04 Fitness Centre Manager: SEDA MEASUREMENT RESULTS: Intervals: Rate: 112 NM: QRSD: 102 QT: 382 QTc: 521 [place]: P: NM: QRS: 6 T: 81 INTERPRETIVE STATEMENTS: Sinus tachycardia Septal infarct, age undetermined Abnormal ECG Compared to ECG 06/12/2023 16:46:35 Fusion complex(es) now present T-wave abnormality no longer present Possible ischemia no longer present Myocardial infarct finding still present Electronically Signed On 06-04-24 11:06:31 CDT by Cl Hatch
== END 2024-06-04 06:29 | disposition short-term general hospital (02) ==
LOC: ER 21:43
DX: R00.0 Tachycardia, unspecified (principal); N39.0 Urinary tract infection, site not specified; E86.0 Dehydration; R05.9 Cough, unspecified; I25.2 Old myocardial infarction; Z96.643 Presence of artificial hip joint, bilateral; Z11.52 Encounter for screening for COVID-19
CPT/HCPCS: 36415; 36556; 71045; 80053; 81001; 83605; 85025; 85610; 85730; 87040; 87077; 87086; 87088; 87186; 87804; 87811; 93005; 96365; 96372; 99285; J0696; J2405; J7030

== ENCOUNTER 2024-10-15 15:18 | Emergency (ER) | payer OTHER ==
--- NOTE | 2024-10-15 17:18 | RAD REPORT ---
EXAMINATION: ONE VIEW CHEST XR CLINICAL INDICATION: COUGH TECHNIQUE: Frontal chest projection is submitted. Examination is limited by patient positioning and t echnique. COMPARISON: 06/04/2024 FINDINGS: The lungs are well inflated and clear. Heart is moderately enlarged. No displaced fractures identifie d. Aortic valve replacement. IMPRESSION: No acute intrathoracic abnormalities.
[2024-10-15] MEDS ORDERED: ACETAMINOPHEN 500 MG TAB ONE (17:36)
[2024-10-15] MEDS ORDERED: NA CHLORIDE 0.9% 1,000 ML ONE (17:36)
[2024-10-15 18:02] LABS: Absolute Eosinophils 0.1 K/uL (0-0.5); Absolute Lymphocytes (CBC) 0.9 K/uL (0.7-4.9); Absolute Monocytes 0.9 K/uL (0.1-1.3); Absolute Neutrophil 7.5 K/uL (1.8-8.0); Basophils % 0.3 % (0-1.3); Eosinophils % 1.6 % (0-4.4); Hematocrit 30.6 % (36.0-45.0); Hemoglobin 10.2 g/dL (12.0-15.0); Lymphocytes % 9.5 % (15.3-44.8); MCH 25.1 pg (27.0-35.0); MCHC 33.4 g/dL (32.0-36.0); MCV 75.1 fL (80-100); MPV 8.9 fL (7.6-11.3); Monocytes % 9.4 % (3.3-12.3); Neutrophils % 79.2 % (41.7-73.7); Platelets 271 thou/uL (152-406); RBC Red Blood Cell Count 4.08 M/uL (3.86-4.86); Red Cell Distribution Width 16.5 % (12.1-15.2)
[2024-10-15 18:09] LABS: Specific Gravity 1.025 (1.005-1.030); Sqamous Epithelial <5 /HPF (None Seen); Urine Bacteria None Seen /HPF (<20); Urine Bilirubin NEGATIVE (Negative); Urine Blood Negative (Negative); Urine Clarity Clear (Clear); Urine Color Yellow (Yellow); Urine Culture Reflex Order NOT NEEDED; Urine Glucose NEGATIVE (Negative); Urine Ketones NEGATIVE (Negative); Urine Micro Reflex YN NO BILL MICROSCOPIC; Urine Mucus Slight /HPF (None Seen); Urine Nitrite NEGATIVE (Negative); Urine Protein 1+ (Negative); Urine RBC <5 /HPF (None Seen); Urine Urobilinogen 2+ (Normal); Urine WBC <5 /HPF (<5)
[2024-10-15 18:14] LABS: Anion Gap 10.1 mEq/L (5.0-15.0); Potassium 3.1 mEq/L (3.5-5.1)
[2024-10-15 18:15] LABS: Troponin High Sensitivity 1044.1 pg/mL (<58.9)
--- NOTE | 2024-10-15 18:46 | ER ---
Nurse's Notes [facility] Name: Kim Aldana Age: 64 yrs Sex: Female : 1960 Arrival Date: 10/15/2024 Time: 15:18 Bed 17 Private MD: Diagnosis: NSTEMI Presentation: 10/15 15:40 Chief complaint: Patient states: Abdominal pain, weakness, sleep a lot, pale, SOB, ll1 unsteady, confusion off/on for 2 weeks. Coronavirus screen: Client denies travel out of the [place] in the last 14 days. At this time, the client does not indicate any symptoms associated with coronavirus-19. Ebola Screen: Patient denies travel to an Ebola-affected area in the 21 days before illness onset. Initial Sepsis Screen: Does the patient meet any 2 criteria? No. Patient's initial sepsis screen is negative. Does the patient have a suspected source of infection? No. Patient's initial sepsis screen is negative. Risk Assessment: Do you want to hurt yourself or someone else? Patient reports no desire to harm self or others. Onset of symptoms was October 02, 2024. 15:40 Method Of Arrival: Wheelchair ll1 15:40 Acuity: CABRERA 3 ll1 Triage Assessment: 15:40 General: Appears uncomfortable, ill, Behavior is calm, cooperative, appropriate for ll1 age, Reports fatigue for. Pain: Complains of pain in back. Neuro: Reports weakness. Historical: - Allergies: 15:40 Aspirin; ll1 15:40 Compazine; ll1 15:40 Methadone; ll1 15:40 Morphine; ll1 15:40 Neurontin; ll1 15:40 PENICILLINS; ll1 15:40 Phenergan; ll1 15:40 plastic tape; ll1 15:40 Suboxone; ll1 - PMHx: 15:40 Anemia; arterial insuficiency; Back pain; cerebritis; chest pain; Chronic pain; ll1 dejenteritive joint disease; Dyspepsia; esophageal reflux; fatigue; hypersomnia; lumbar radiculitis; Lupus; menopause; Myocardial infarction; osteomyelitis; Panic Attacks; pulmonary edema; Seizures; Tachycardia; TIA; venous insufficiency; - PSHx: 15:40 bowel resection; breast reduction bilateral; hip replacement bilateral; Mitral and ll1 Aortic Valve replacement; right total knee; - Immunization history:: Adult Immunizations up to date. - Infectious Disease History:: Denies. - Social history:: Smoking status: Patient/guardian denies using tobacco. Screenin:15 [facility] ED Fall Risk Assessment (Adult) History of falling in the last 3 months, kj2 including since admission No falls in past 3 months (0 pts) Confusion or Disorientation No (0 pts) Intoxicated or Sedated No (0 pts) Impaired Gait No (0 pts) Mobility Assist Device Used No (0 pt) Altered Elimination No (0 pt) Score/Fall Risk Level 0 - 2 = Low Risk Maintained a safe environment, Hourly rounding (assess needs \T\ fall precautionary measures) done. Abuse screen: Denies threats or abuse. Denies injuries from another. Nutritional screening: No deficits noted. Tuberculosis screening: No symptoms or risk factors identified. Assessment: 16:43 Reassessment: No changes from previously documented assessment. Patient and/or family ll1 updated on plan of care and expected duration. Pain level reassessed. 17:45 Reassessment: Patient appears in no apparent distress at this time. Patient is alert, kj2 oriented x 3, equal unlabored respirations, skin warm/dry/pink. Patient is alert/active/playful, equal unlabored respirations, skin warm/dry/pink. 18:45 Reassessment: Patient appears in no apparent distress at this time. Patient and/or kj2 family updated on plan of care and expected duration. Pain level reassessed. Patient is alert, oriented x 3, equal unlabored respirations, skin warm/dry/pink. 19:35 Reassessment: Patient appears in no apparent distress at this time. Patient and/or kj2 family updated on plan of care and expected duration. Pain level reassessed. Patient is alert, oriented x 3, equal unlabored respirations, skin warm/dry/pink. 20:30 Reassessment: Patient appears in no apparent distress at this time. Patient and/or kj2 family updated on plan of care and expected duration. Pain level reassessed. Patient is alert, oriented x 3, equal unlabored respirations, skin warm/dry/pink. 20:44 Reassessment: called to give nurse to nurse report, asked to call back in 10 minutes. kj2 20:55 Reassessment: called to give report, no answer to phone. kj2 22:04 Reassessment: Patient appears in no apparent distress at this time. Patient and/or kj2 family updated on plan of care and expected duration. Pain level reassessed. Patient is alert, oriented x 3, equal unlabored respirations, skin warm/dry/pink. Vital Signs: 15:40 BP 105 / 59; Pulse 95; Resp 18; Temp 99.7; Pulse Ox 97% on R/A; Weight 72.57 kg; Height ll1 5 ft. 7 in. ; Pain 10/10; 17:15 BP 134 / 76; Pulse 87; Resp 18; Pulse Ox 98% on R/A; kj2 18:15 BP 122 / 65; Pulse 88; Resp 18; Pulse Ox 98% on R/A; kj2 22:04 BP 142 / 88; Pulse 78; Resp 20; Temp 98.2; Pulse Ox 100% on R/A; kj2 15:40 Body Mass Index 25.06 (72.57 kg, 170.18 cm) ll1 15:40 Pain Scale: Adult ll1 ED Course: 15:20 Patient arrived in ED. mr 15:21 Darryl Linton MD is Attending Physician. ec2 15:44 Triage completed. ll1 15:44 Arm band placed on. ll1 16:36 Patient placed in an exam room, on a stretcher. ll1 16:46 XRAY Chest (1 view) In Process Unspecified. EDMS 17:15 Patient has correct armband on for positive identification. Provided Education on: call kj2 light. 17:18 Anita Peraza, RN is Primary Nurse. kj2 17:47 No provider procedures requiring assistance completed. kj2 17:50 Initial lab(s) drawn, by wa, sent to lab. Inserted saline lock: 22 gauge in right upper aa5 arm, using aseptic technique. Blood collected. Flushed with 10 mL NS. 19:06 initiated transfer with Abel \T\ vladimir. [facility] 19:50 Inserted saline lock: 24 gauge in right Flushed with 10 mL NS. ha1 20:11 pt was accepted to [facility] \T\2010. Dr. Ammon Woods accepted pt. Admin approval given by [facility] Rhett Ulloa \T2010. Pt will go to room 1538. [facility] to transfer pt. number for nurse to nurse report [phone]. faxed pt facesheet. 22:01 Patient transferred, IV remains in place. ha1 Administered Medications: 17:46 Drug: Acetaminophen PO 1000 mg PO once Route: PO; kj2 19:33 Follow up: Response: No adverse reaction kj2 22:04 Follow up: Response: No adverse reaction kj2 17:59 Drug: NS 0.9% IV 1000 ml IV at 1000 ml once; to be given as a bolus over 60 minutes kj2 Route: IV; Rate: 1000 ml; Site: right upper arm; 22:04 Follow up: IV Status: Completed infusion; IV Intake: 1000ml kj2 18:20 Drug: Heparin (OH Drip) 12 units/kg/hr - ([place] [address] units, D5W IV 500 ml) IV at kj2 calculated rate Per protocol; Max initial rate 1000 units/hr {Co-Signature: ha1 (Jami Rivera RN).} Route: IV; Rate: 900 units/hr; Site: right upper arm; 22:01 Follow up: Response: No adverse reaction; IV Status: Infusion continued upon transfer ha1 22:02 Follow up: IV Status: Infusion continued upon transfer kj2 19:29 Drug: Potassium Chloride PO 40 mEq PO once Route: PO; kj2 19:34 Follow up: Response: No adverse reaction kj2 22:03 Follow up: Response: No adverse reaction kj2 19:50 Drug: Ondansetron IVP 4 mg IVP once; over 2 minutes Route: IVP; Site: right forearm; ha1 20:33 Follow up: Response: No adverse reaction kj2 22:02 Follow up: Response: No adverse reaction kj2 20:07 Drug: Potassium Chloride IV 20 mEq IV at calculated rate once; administer over 1-2 ha1 hours Route: IV; Rate: calculated rate; Site: right forearm; 22:03 Follow up: Response: No adverse reaction kj2 Medication: 17:47 VIS not applicable for this client. kj2 Intake: 22:04 IV: 1000ml; Total: 1000ml. kj2 Outcome: 18:46 ER care complete, transfer ordered by . ec2 21:56 Condition: stable ha1 22:01 Transferred by ground EMS to [facility], Transfer form completed. ha1 X-rays sent w/ patient. 22:01 Instructed on the need for transfer, Demonstrated understanding of instructions, 22:02 Patient left the ED. ha1 Signatures: Dispatcher [employer] Shobha Brunson, Lui Poe mr Gonzales, Abbey, RN RN aa5 Marck Pollard, RN RN ll1 Jami Rivera RN RN ha1 Darryl Linton MD MD 2 Shilpa Montes [facility] Anita Peraza RN RN 2 Jami Rivera RN ha1
--- NOTE | 2024-10-15 18:46 | EDPHYS ---
Physician Documentation [facility] Name: Kim Aldana Age: 64 yrs Sex: Female : 1960 Arrival Date: 10/15/2024 Time: 15:18 Bed 17 Private MD: ED Physician Darryl Linton HPI: 10/15 16:30 This 64 yrs old Female presents to ER via Wheelchair with complaints of ec2 Altered Mental Status, Weakness. 16:31 Patient arrives today for generalized weakness as well as increased fatigue. Does note ec2 some intermittent confusion. No falls injuries or trauma. No vomiting, no diarrhea.. Historical: - Allergies: 15:40 Aspirin; ll1 15:40 Compazine; ll1 15:40 Methadone; ll1 15:40 Morphine; ll1 15:40 Neurontin; ll1 15:40 PENICILLINS; ll1 15:40 Phenergan; ll1 15:40 plastic tape; ll1 15:40 Suboxone; ll1 - PMHx: 15:40 Anemia; arterial insuficiency; Back pain; cerebritis; chest pain; Chronic pain; ll1 dejenteritive joint disease; Dyspepsia; esophageal reflux; fatigue; hypersomnia; lumbar radiculitis; Lupus; menopause; Myocardial infarction; osteomyelitis; Panic Attacks; pulmonary edema; Seizures; Tachycardia; TIA; venous insufficiency; - PSHx: 15:40 bowel resection; breast reduction bilateral; hip replacement bilateral; Mitral and ll1 Aortic Valve replacement; right total knee; - Immunization history:: Adult Immunizations up to date. - Infectious Disease History:: Denies. - Social history:: Smoking status: Patient/guardian denies using tobacco. ROS: 16:31 Constitutional: as per hpi ec2 Exam: 16:31 Constitutional: GEN: NAD Head: atraumatic Eyes: EOMI Ears: External ears are ec2 normal. CV: regular rate LUNGS: no respiratory distress ABD: non-distended SKIN: no evidence of rashes MSK: no evidence of trauma. Neuro: Cranial nerves II through XII intact, strength intact all 4 extremities. Vital Signs: 15:40 BP 105 / 59; Pulse 95; Resp 18; Temp 99.7; Pulse Ox 97% on R/A; Weight 72.57 kg; Height ll1 5 ft. 7 in. ; Pain 10/10; 17:15 BP 134 / 76; Pulse 87; Resp 18; Pulse Ox 98% on R/A; kj2 18:15 BP 122 / 65; Pulse 88; Resp 18; Pulse Ox 98% on R/A; kj2 22:04 BP 142 / 88; Pulse 78; Resp 20; Temp 98.2; Pulse Ox 100% on R/A; kj2 15:40 Body Mass Index 25.06 (72.57 kg, 170.18 cm) ll1 15:40 Pain Scale: Adult ll1 MDM: 15:44 Medical Screening Exam initiated ec2 16:32 Data reviewed: vital signs, nurses notes. ED course: Patient arrives today for ec2 evaluation of generalized weakness as well as confusion. Examination is revealing for neuro intact neuroexam, reassuring hemodynamics. Will obtain lab work, urine studies. DDx includes anemia, dehydration, electrolyte disturbances. 18:32 ED course: EKG independently reviewed and interpreted by me, shows normal sinus rhythm, ec2 rate of 92, no acute ST segment elevations, does have T wave flattening in most leads.. 18:40 ED course: When compared to external EKG, appears similar.. ec2 18:43 ED course: Will start the patient on a heparin drip, transfer to cardiac capable ec2 facility for NSTEMI.. 20:12 ED course: I discussed the case with the hospitalist at [facility] who agrees ec2 accept the patient for transfer. Patient updated regarding plan of care and agreeable.. 10/15 15:44 Order name: Basic Metabolic Panel; Complete Time: 18:18 ec2 10/15 15:44 Order name: CBC with Diff; Complete Time: 18:12 ec2 10/15 15:44 Order name: Troponin HS; Complete Time: 18:18 ec2 10/15 15:44 Order name: UAM; Complete Time: 18:12 ec2 10/15 18:19 Order name: PT-INR; Complete Time: 18:57 ec2 10/15 18:19 Order name: Ptt, Activated; Complete Time: 18:57 ec2 10/15 15:44 Order name: XRAY Chest (1 view); Complete Time: 17:30 ec2 10/15 15:44 Order name: EKG; Complete Time: 15:44 ec2 10/15 15:44 Order name: Cardiac monitoring; Complete Time: 18:00 ec2 10/15 15:44 Order name: EKG - Nurse/Tech; Complete Time: 18:00 2 10/15 15:44 Order name: IV Saline Lock; Complete Time: 17:52 ec2 10/15 15:44 Order name: Labs collected and sent; Complete Time: 17:52 2 10/15 15:44 Order name: O2 Per Protocol; Complete Time: 20:07 2 10/15 15:44 Order name: O2 Sat Monitoring; Complete Time: 20:07 ec2 Administered Medications: 17:46 Drug: Acetaminophen PO 1000 mg PO once Route: PO; kj2 19:33 Follow up: Response: No adverse reaction kj2 22:04 Follow up: Response: No adverse reaction kj2 17:59 Drug: NS 0.9% IV 1000 ml IV at 1000 ml once; to be given as a bolus over 60 minutes kj2 Route: IV; Rate: 1000 ml; Site: right upper arm; 22:04 Follow up: IV Status: Completed infusion; IV Intake: 1000ml kj2 18:20 Drug: Heparin (ND Drip) 12 units/kg/[place] - ([place] [address] units, D5W IV 500 ml) IV at kj2 calculated rate Per protocol; Max initial rate 1000 units/hr {Co-Signature: sierra (Jami Rivera RN).} Route: IV; Rate: 900 units/hr; Site: right upper arm; 22:01 Follow up: Response: No adverse reaction; IV Status: Infusion continued upon transfer ha1 22:02 Follow up: IV Status: Infusion continued upon transfer kj2 19:29 Drug: Potassium Chloride PO 40 mEq PO once Route: PO; kj2 19:34 Follow up: Response: No adverse reaction kj2 22:03 Follow up: Response: No adverse reaction kj2 19:50 Drug: Ondansetron IVP 4 mg IVP once; over 2 minutes Route: IVP; Site: right forearm; ha1 20:33 Follow up: Response: No adverse reaction kj2 22:02 Follow up: Response: No adverse reaction kj2 20:07 Drug: Potassium Chloride IV 20 mEq IV at calculated rate once; administer over 1-2 ha1 hours Route: IV; Rate: calculated rate; Site: right forearm; 22:03 Follow up: Response: No adverse reaction kj2 Disposition: 18:46 Critical Care:. ec2 Disposition Summary: 10/15/24 18:46 Transfer Ordered Notes: Transfer Location: Other Acute Care Facility ec2 Reason: Higher level of care ec2 Condition: Stable ec2 Problem: an acute exacerbation ec2 Symptoms: are unchanged ec2 Accepting Physician: transferring doc(10/15/24 22:02) ha1 Diagnosis - NSTEMI ec2 Forms: - Medication Reconciliation Form ec2 - SBAR form ec2 Critical care time excluding procedures: 18:46 Critical care time: Bedside Care: 30 minutes, Consultation: 5 minutes. Total time: 35 ec2 minutes Signatures: Dispatcher [employer] Marck Dixon RN RN 1 Jami Rivera RN RN ha1 Darryl Linton MD MD 2 Anita Peraza RN RN kj2 Jami Rivera RN ha1 Corrections: (The following items were deleted from the chart) 22:02 18:46 transferring doc ec2 ha1
[2024-10-15 18:53] LABS: PT Prothrombin Time 38.7 SECONDS (10-13.0); PTT, Activated Partial Thromb 49.7 SECONDS (27.2-37.4); Protime INR 3.61
[2024-10-15] MEDS ORDERED: HEPARIN/D5W 25,000 UNIT/500 ML BAG IV ONE (19:09)
[2024-10-15] MEDS ORDERED: KCL 20 MEQ/100 mL IVPB 100 ML IV ONE (19:11)
[2024-10-15] MEDS ORDERED: POTASSIUM CL SA 10 MEQ TAB PO ONE (19:11)
[2024-10-15] MEDS ORDERED: ONDANSETRON 4 MG/2 ML VIAL ONE (19:33)
[2024-10-15] MEDS ORDERED: NA CHLORIDE 0.9% 500 ML ONE (19:40)
[2024-10-15 22:24] VITALS: TEMP 99.7
[2024-10-15 22:26] VITALS: O2SAT 98
[2024-10-15 22:27] VITALS: BP 122/65
== END 2024-10-15 22:02 ==
LOC: ER 15:18
DX: I21.4 Non-ST elevation (NSTEMI) myocardial infarction (principal); I25.2 Old myocardial infarction; Z95.2 Presence of prosthetic heart valve
CPT/HCPCS: 96365; 85025; 81001; 80048; 36415; 85610; 85730; 84484; 71045; 96375; 99285; 96366; J3480; J2405; J7040; J7030; 93005

== ENCOUNTER 2024-11-09 13:15 | Inpatient (IN) | payer OTHER ==
[2024-11-09] MEDS ORDERED: ONDANSETRON 4 MG (ODT) TAB PO PRN (22:43)
[2024-11-09] MEDS ORDERED: BISACODYL E.C. 5 MG TAB PO PRN (22:43)
[2024-11-09] MEDS ORDERED: ALBUTEROL INHALER 200 PUFF/6.7 GM IH PRN (22:43)
[2024-11-09] MEDS: DAPTOmycin 600 MG in NA CHLORIDE 0.9% 100 ML IVPB ONE (23:00)
[2024-11-10] MEDS ORDERED: DAPTOmycin 600 MG in NA CHLORIDE 0.9% 100 ML IVPB ONE
--- NOTE | 2024-11-10 01:01 | RAD REPORT ---
EXAM DESCRIPTION: Chest Single View CLINICAL HISTORY: verify rt picc placement TECHNIQUE: AP chest COMPARISON: October 29 FINDINGS: Right-sided PICC line in the SVC. Heart: The cardiomediastinal silhouette is within normal limits. Status post median sternotomy. Prost hetic aortic valve. Lungs: No focal consolidation. Mediastinum: Calcified right hilar nodes. Pleura: No appreciable effusion. No pneumothorax. Bones: Intact IMPRESSION: Right-sided PICC line in the SVC. No pneumothorax. Electronically signed by: Carlos Naranjo MD 11/09/2024 11:45 PM CDT RP Due to temporary technical issues with the PACS/[employer] reporting system, reports are being natalee d by the in-house radiologist without review as a courtesy to ensure prompt reporting the interpreting radiologist is fully responsible for the content of the report. Transcribed Date/Time: 11/10/2024 1:01 AM
[2024-11-10 06:02] LABS: Absolute Basophils 0.2 K/uL (0-0.5); Absolute Eosinophils 0.2 K/uL (0-0.5); Absolute Lymphocytes (CBC) 1.7 K/uL (0.7-4.9); Absolute Monocytes 0.7 K/uL (0.1-1.3); Absolute Neutrophil 4.2 K/uL (1.8-8.0); Basophils % 2.4 % (0-1.3); Eosinophils % 2.3 % (0-4.4); Hematocrit 29.8 % (36.0-45.0); Hemoglobin 9.7 g/dL (12.0-15.0); Lymphocytes % 24.4 % (15.3-44.8); MCH 25.5 pg (27.0-35.0); MCHC 32.5 g/dL (32.0-36.0); MCV 78.3 fL (80-100); MPV 8.9 fL (7.6-11.3); Neutrophils % 60.9 % (41.7-73.7); Nucleated Red Blood Cells % 0.1 % (0-0); Platelets 482 thou/uL (152-406); Red Cell Distribution Width 18.9 % (12.1-15.2)
[2024-11-10 06:05] LABS: PT Prothrombin Time 23.2 SECONDS (10-13.0); Protime INR 2.11
[2024-11-10 06:16] LABS: Albumin 3.3 g/dL (3.4-5.0); Magnesium 2.3 mg/dL (1.6-2.4); Prealbumin 23.9 mg/dL (20-40)
[2024-11-10] MEDS: LEVOTHYROXINE SOD 0.125 MG TAB PO SCH (06:30)
[2024-11-10] MEDS ORDERED: predniSONE 1 MG TAB PO SCH (08:00)
[2024-11-10] MEDS: CLOPIDOGREL 75 MG TABLET PO SCH (08:22)
[2024-11-10] MEDS: VENLAFAXINE HCL XR 75 MG CAP PO SCH (08:22)
[2024-11-10] MEDS: DAPTOmycin 600 MG in NA CHLORIDE 0.9% 100 ML IVPB SCH (08:22)
[2024-11-10] MEDS: DOCUSATE NA/SENNA CONC 1 TAB PO SCH (08:23)
[2024-11-10] MEDS: PANTOPRAZOLE 40MG TABLET PO SCH (08:23)
[2024-11-10] MEDS: FUROSEMIDE 40 MG TABLET PO SCH (08:23)
[2024-11-10] MEDS: LOSARTAN POTASSIUM 50 MG TABLET PO SCH (08:23)
[2024-11-10] MEDS: METOPROLOL XL 25 MG TAB PO SCH (08:24)
[2024-11-10] MEDS: SPIRONOLACTONE 25 MG TABLET PO SCH (08:24)
[2024-11-10] MEDS: predniSONE 5 MG TAB PO SCH (08:24)
[2024-11-10] MEDS: ENOXAPARIN 60 MG/0.6 ML SQ SCH (08:25)
[2024-11-10] MEDS: ONDANSETRON 4 MG/2 ML VIAL IV PRN (12:01)
[2024-11-10 15:30] LABS: Sqamous Epithelial <5 /HPF (None Seen); Urine Bacteria None Seen /HPF (<20); Urine Bilirubin NEGATIVE (Negative); Urine Blood Negative (Negative); Urine Clarity Clear (Clear); Urine Color Colorless (Yellow); Urine Culture Reflex Order NOT NEEDED; Urine Glucose NEGATIVE (Negative); Urine Ketones NEGATIVE (Negative); Urine Micro Reflex YN NO BILL MICROSCOPIC; Urine Mucus Slight /HPF (None Seen); Urine Nitrite NEGATIVE (Negative); Urine Protein NEGATIVE (Negative); Urine RBC <5 /HPF (None Seen); Urine Urobilinogen Normal (Normal); Urine WBC <5 /HPF (<5); Urine pH 5.5 (5.0-7.0)
[2024-11-10] MEDS ORDERED: DAPTOmycin 600 MG in NA CHLORIDE 0.9% 100 ML IVPB SCH (21:00)
--- NOTE | 2024-11-10 23:43 | HP ---
Date of Admission: 11/09/2024 Time Of Service: 1:00 p.m. Chief Complaint: "I needs heart surgery, I did not have surgery yet, I am weak and need to get stron otis." History Of Present Illness: Ms. Aldana is a 64-year-old patient with coronary artery disease, status post percutaneous coronary intervention from PCI to the LAD in 2022. She has mechanical aortic valve and valve replacement in 2021, on chronic anticoagulation, who has cardiac failure with reduced ejec tion fraction; hypertension; hypothyroidism; history of seizures, but not currently on antiepileptics . She was hospitalized after presenting to hospital with chest pain, shortness of breath. She was diagnosed with a xqb-HE-qqmqaabuv myocardial infarction. 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 Serial blood cultures did show persistent bacteremia. S he received IV antibiotics. She did have a mass also on the left ventricular outflow tract, which wa s concerning for vegetation versus a thrombus. 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 She did, however, have a succe ssful thrombectomy on 10/21 with improvement and the ischemia. She had a carotid subclavian bypass p rocedure on 10/26. In addition, she continued antibiotics with Rocephin and vancomycin along with da ptomycin, which was then put on hold after she was successfully treated. As a result of her prolonge d hospitalization and comorbid conditions, she was determined actually not to be a candidate for imme diate cardiac reoperation, but was referred for inpatient rehabilitation to gain strength and return to a good baseline level of function prior to potential surgery. Prior to her vfj-LK-votwvsv myocard ial infarction, she was independent for mobilization, ambulation, ambulate without assistive device, took care of her own activities of daily living, and manage her assistance situation appropriately. Currently, she requires supervision for sln-wf-qmdyj transfers and czwxd-ug-dbcho transfers. Also, t ransfers and ambulation of 115 feet with a rolling walker. She is still cognitively intact and is ca pable of following all instructions and having good health as she goes to physical therapy. It is as medically necessary for her to return to physical therapy with medical management and receive therap y to help her return to a good level prior to surgery. Allergies: PENICILLIN, PROCHLORPERAZINE, COMPAZINE, PHENERGAN. Medications: Ventolin inhaler 1 puff every 6 hours as needed, Dulcolax 5 mg per rectum as needed, Pl avix 75 mg daily, daptomycin 600 mg every 24 hours, Lovenox 60 mg subcutaneous every 12 hours, Lasix 40 mg daily, Synthroid 0.125 mg daily, Cozaar 25 mg daily, Toprol 25 mg daily, Zofran 4 mg every 4 ho urs as needed, pantoprazole 40 mg daily, Deltasone 2.5 mg daily, Senokot 2 at bedtime, Aldactone 25 m g daily, and venlafaxine 150 mg daily. Laboratory Studies: White blood cell count 6.9, hemoglobin 9.7, platelets 482. INR 2.11. Sodium 12 8, potassium 4.0, chloride 106, carbon dioxide 27, BUN 23, creatinine 1.21, glucose 113, calcium 9.0. Magnesium 2.3. Albumin 3.3, prealbumin 23.9. Urinalysis shows hyaline casts 10-20, otherwise unre markable. She had a chest x-ray done earlier today. The study showed right sided PICC line is in th e superior vena cava. There is no pneumothorax. Cardiac silhouette is within normal limits. Status post median sternotomy and prosthetic aortic valve in place. Family History: Noncontributory. Social History: No alcohol, tobacco, or IV drug use. Lives in single family home. Review of Systems: She does report some mild diffuse pain in the lower extremities. She did ambulate actually already a bout 1000 feet and did go up and down about 10 steps. She is feeling much better about her therapy a s she begins therapy. Mild myalgias, arthralgias. No rash. No psychiatric issues. Current Level Of Functioning: Just prior to coming in to the inpatient rehabilitation, she was super vision for bathing, dressing upper and lower body and toileting, supervision; wheelchair transfers, s upervision; toilet transfers, supervision. She did cover about 150 feet coming into the hospital wit h supervision. Physical Examination: Vital Signs: Blood pressure 169/72, pulse of 110, respiratory rate of 18, temperature 98, oxygen sat uration 100%. General: Ms. Aldana is resting in bed. She is lying on her left side. She is in no significant dist ress. HEENT: She appears normocephalic, atraumatic. Sclerae anicteric. Oropharynx moist. Neck: Supple. Chest: Clear. Skin: She has no areas of obvious loss of hemostases at all her surgical sites. Extremities: In terms of her strength, she has proximal weakness in the upper and lower extremities, more in the distal consistent with mild myopathy. She has mild stocking-glove loss light touch and temperature. Rehab And Medical Assessment And Plan: Ms. Aldana is a 64-year-old patient is admitted to the [facility] rehabilitation unit with impairment category 14, cardiac. Impairment group code is 09, cardiac. Etiologic diagnosis: Coronary artery disease. Comorbid conditions include decreased mobility, decre ased physical functioning, hypothyroidism, hypertension. She has mechanical aortic valve and mitral valve replacement, recent wfo-NS-wkskgev myocardial infarction with Staphylococcus epidermidis and pr osthetic cardiac valve endocarditis, recently treated for bacteremia. Plan: She will have physical, occupational, and speech therapy if need be 3.5 hours, 5 of 7 days. S he has a list of comorbid condition medications including Lovenox for DVT risk reduction and stroke r isk reduction. She has Plavix for stroke risk reduction. Nebulizer treatment on board for shortness of breath. She has Lasix for fluid management. Synthroid for hypothyroidism, Cozaar for heart rat e and blood pressure control along with Toprol. She has Zofran for nausea, Protonix for GE reflux, v enlafaxine for depression. Comorbidities That Are Impacting Her Rehabilitation: She has a significant history of coronary arter y disease and valvular disease and will be at risk of additional infection given the recent risk of b acteremia. She does have a chest x-ray that looks good. She will have if need be blood cultures hari wn, urinalysis, repeat chest x-ray, and stool cultures if need be. Of course, every shift, she has t he vital signs including temperature to help rule out risk of any ongoing or potential infection. Rehab Specific Plan: Ms. Aldana will have physical and occupational therapy and may need speech thera py, but she will currently start with physical and occupational therapy 3 hours a day, 5 of 7 days to improve her ability to transfer from bed to chair to a wheelchair, to a rolling walker, on and off t he toilet, in and out the shower, and to perform with lower body dressing and donning and doffing of footwear. She will work with mobilizing more than household distances at least 250 feet with indepen dence, up and down 10 steps with independence, and propel a wheelchair 250 feet with independence. Ms. Aldana has a good understanding of the process of admission to the inpatient rehabilitation unit a nd how she will benefit from physical, occupational, and speech if need be. She will have 24 hours a day, 7 days a week skilled rehabilitation nursing, daily physician evaluation and management, and so [facility] services evaluation and management for discharge planning, home equipment, and to continue thera py after discharge. If need be, hospitalist will be consulted. Barriers To Discharge: Again, given the patient's multiple cardiovascular issues, there may be need for her to have an extended stay, especially if she has does not go to the acute care for chest pain and the potential for myocardial infarction or systemic infection. [facility] to [facility], but the plan will be to go home. Length Of Stay: About 10-12 days. Disposition: Expected to be home with continued therapy via Home Health. Follow up with our cardiol ogist as appropriate. Prognosis: Good. Code Status: Full code. Rehab Specific Goals: 1. Become independent with upper and lower body dressing, donning and doffing of footwear. 2. Independently ambulate 250 feet with a rolling walker. 3. Independently propel a wheelchair 250 feet. 4. Independently go up and down 10 steps with bilateral handrails. 5. Independently perform cognitive functioning including all issues of safety awareness, medication m anagement, and followup with physicians. The above goals were reviewed with Ms. Aldana and she is in agreement. By signing this document, I acknowledge I personally performed a full physical examination on Ms. Hill er no later than 24 hours after her admission to the inpatient rehabilitation unit and determined michele t she is able to tolerate the above course of treatment at an intensive level for a reasonable period of time. A detailed individualized plan of care for her will be completed by hospital day 4 based o n the preadmission screen, history and physical, and therapy evaluations. KURT Voice ID: [id number]
[2024-11-11] MEDS: SODIUM CHLORIDE 0.9% 10ML INJ IV SCH (07:54)
[2024-11-11 09:07] LABS: ALT/SGPT 20 U/L (13-56); AST/SGOT 30 U/L (15-37); Albumin/Globulin Ratio 0.9 (1.1-1.8); Alkaline Phosphatase 64 U/L (45-117); Bilirubin Total 0.5 mg/dL (0.2-1.0); Globulin 3.5 g/dL (2.3-3.5); Protein, Total 6.5 g/dL (6.4-8.2)
[2024-11-11 09:08] LABS: Bilirubin Direct < 0.2 mg/dL (0-0.2); Bilirubin Indirect, Calculated 0.3 mg/dL (0.2-0.8)
[2024-11-11] MEDS: DAPTOmycin 600 MG in NA CHLORIDE 0.9% 100 ML IVPB SCH (14:42)
[2024-11-11] MEDS ORDERED: WARFARIN SODIUM 2.5 MG TAB PO SCH (17:00)
[2024-11-11] MEDS: WARFARIN SODIUM 2.5 MG TAB PO SCH (17:11)
[2024-11-11] MEDS: MELATONIN 3 MG TABLET PO PRN (19:16)
--- NOTE | 2024-11-11 23:19 | PN ---
Date of Progress Note: 11/11/2024 Time Of Service: 1:10 p.m. Subjective: Ms. Aldana is doing well. She is mobilizing well. She does have still some mild pain, b ut no significant pain, and able to do the therapy as requested. Objective: She denies any significant fevers, chills, nausea, vomiting. No new findings such as charley h, myalgias, or arthralgias. She did have continuation of her antibiotics, which is the daptomycin. She does have a Coumadin on board as well. Objective: No fevers or chills. She does have some difficulty with stool. She said no bowel moveme nts in about 2 to 3 days. She normally goes once a day and she has stool softeners laxatives on d. Physical Examination: Vital Signs: Blood pressure 120/64, pulse 95, respiratory rate 18, temperature 98.3, oxygen saturati on 96%. Weight 129 pounds. Height 5 feet 6 inches. BMI is 25. General: Ms. Aldana again is lying comfortably in bed. She is in no significant distress. HEENT: She is normocephalic, atraumatic. Sclerae anicteric. Oropharynx pink and moist. Neck: Supple. Chest: Clear. Heart: Regular. Extremities: No significant edema, cyanosis, or clubbing noted. Laboratory Studies: White blood cell count 6.9, hemoglobin 9.7, platelets 482. INR 2.11, and she wi ll continue with Coumadin dosage. Her sodium 138, potassium 4.0, chloride 106, BUN 23, creatinine 1. 21, calcium 9.0, magnesium 2.3, prealbumin 23.9, albumin 3.0, AST 30, ALT 20, alkaline phosphatase 64 , total protein 6.5, total bilirubin 0.5, direct bilirubin less than 0.02, indirect bilirubin 0.3. U rinalysis on the 8th shows 10-20 hyaline casts, otherwise unremarkable. Chest x-ray again done 2 day s ago showed right-sided PICC line and SVC. No pneumothorax. Medications: Coumadin 2.5 mg daily, Effexor 150 mg daily, Aldactone 25 mg daily, Senokot-S 2 twice d aily, prednisone 2.5 mg daily, Protonix 40 mg daily, Zofran 4 mg every 6 hours as needed, she did hav e some nausea early in the day after breakfast and Zofran was helpful, Topamax 25 mg daily, Cozaar 25 mg daily, Synthroid 0.125 mg daily, Lasix 40 mg daily, daptomycin 600 mg every 24 hours, Plavix 75 m g daily, Dulcolax 5 mg per rectum as needed for constipation, and albuterol nebulizer every 6 hours a s needed. Progress Made With Physical, Occupational, And Speech Therapy: With physical therapy today, she perf orms otuhzm-km-adj transfers with standby assistance. Toilet transfers with standby assistance. She ambulated 250 feet and 120 feet with a rolling walker with contact guard assistance and mobilized a wheelchair 250 feet with standby assistance. With occupational therapy, she was somewhat impulsive, required verbal cues for safety while transferring, standby assistance for toilet hygiene. Required supervision for bathing. Regarding speech, she worked on short-term memory tasks, could recall 3 of 3 unrelated items after 7 minutes independently. Organizational thinking skills used for divergent a nd convergent naming with 100% accuracy. She could complete cause and effect relationships with 80% accuracy and minimum assistance. Assessment And Plan: Ms. Aldana is a 64-year-old patient in the rehabilitation unit with coronary art ana m disease. She is doing excellent with physical, occupational, and speech therapy. Still has some constipation, but otherwise she is actually doing quite well. She does still have some decreased mo bility, decreased physical functioning, hypertension, hypothyroidism, on antibiotics per her primary team, adrenal insufficiency, depression and is on anticoagulation with Coumadin. Target will be 2 to 3.5. In terms of plan, again she will continue with physical, occupational, and speech therapy 3.5 hours, 5 of 7 days. Continue with all comorbid condition medications, which have been noted for DVT prophylaxis as well and continue with antibiotics. ROSS/GERARDO Voice ID: [id number] Report ID: [id number]
[2024-11-12 04:42] LABS: Absolute Basophils 0.1 K/uL (0-0.5); Absolute Eosinophils 0.1 K/uL (0-0.5); Absolute Lymphocytes (CBC) 1.8 K/uL (0.7-4.9); Absolute Monocytes 0.7 K/uL (0.1-1.3); Absolute Neutrophil 4.3 K/uL (1.8-8.0); Basophils % 1.2 % (0-1.3); Eosinophils % 2.1 % (0-4.4); Hematocrit 28.6 % (36.0-45.0); Hemoglobin 9.4 g/dL (12.0-15.0); Lymphocytes % 25.5 % (15.3-44.8); MCH 25.2 pg (27.0-35.0); MCHC 32.8 g/dL (32.0-36.0); MPV 8.7 fL (7.6-11.3); Monocytes % 9.5 % (3.3-12.3); Neutrophils % 61.7 % (41.7-73.7); Nucleated Red Blood Cells % 0.1 % (0-0); Platelets 444 thou/uL (152-406); RBC Red Blood Cell Count 3.72 M/uL (3.86-4.86); Red Cell Distribution Width 18.7 % (12.1-15.2)
[2024-11-12 04:43] LABS: Protime INR 1.8
[2024-11-12 05:00] LABS: Albumin 3.3 g/dL (3.4-5.0); Anion Gap 9.8 mEq/L (5.0-15.0); Potassium 3.8 mEq/L (3.5-5.1); Prealbumin 20.8 mg/dL (20-40)
[2024-11-12] MEDS: PANTOPRAZOLE 40MG TABLET PO SCH (06:50)
[2024-11-12] MEDS: WARFARIN SODIUM 3 MG TAB PO SCH (17:32)
[2024-11-12] MEDS: DAPTOmycin 600 MG in NA CHLORIDE 0.9% 100 ML IVPB SCH (18:23)
[2024-11-12] MEDS: ONDANSETRON 4 MG (ODT) TAB PO PRN (18:32)
[2024-11-12] MEDS: TRAZODONE 50 MG TABLET PO SCH (20:00)
[2024-11-12] MEDS: TRAMADOL HCL 50 MG TAB PO PRN (22:26)
--- NOTE | 2024-11-13 01:05 | PN ---
Date of Progress Note: 11/12/2024 Time Of Service: 1:15 Subjective: Ms. Aldana is resting well. She is in no significant distress. Has no significant compl aints about her recovery. Strength is again doing well. Oxygenation is well. Denies any chest pain . Her discharge was discussed. She is happy so far with therapy. Objective: No significant fevers, chills, nausea, vomiting. No shortness of breath. No chest pain. No generalized myalgias and arthralgias. Physical Examination: Vital Signs: Blood pressure ranges 96 to 144 over 51 to 72, pulse 95, respiratory rate 18, temperatu re 97.9, oxygen saturation 98%. General: Ms. Aldana again is lying in bed in between therapy sessions. HEENT: She is normocephalic, atraumatic. Sclerae anicteric. Oropharynx is moist. Neck: Supple. Musculoskeletal: She is becoming stronger at lower extremities and upper extremities. Laboratory Studies: White blood cell count 6.9, hemoglobin 9.4, platelets 444. INR 1.8. Sodium 134 , potassium 3.8, chloride 100, carbon dioxide 28, BUN 22, creatinine 1.51, glucose 104. Calcium 9.0, magnesium 2.0. Prealbumin 20.8. Albumin 3.3. X-ray/imaging: No new x-rays or imaging. Medications: Medications have been reviewed and are unchanged except the daptomycin of course is con tinued. Melatonin for sleep. She has Zofran for nausea. She did have some episodes of nausea and i t is noted that the nausea did occur after she got up and did therapy, especially when she started to move around. She will have for that the Linda maneuver done. She will have Zofran on board as well . We will continue with spironolactone. Continue with Coumadin. Her INR is 1.8. Coumadin dosage a djusted from 2.5 daily to 3 mg daily, and will be followed on a regular basis with a target of trying to get to 2.5 to 3.5. Progress Made With Physical, Occupational, And Speech Therapy: With physical therapy today, she did cxmbmm-fv-rpq transfers independently. Multiple toilet transfers done independently. Uwc-db-crkpe t ransfers done independently. She ambulated 175 feet and 120 feet twice with contact guard assistance using a rolling walker. Mobilized wheelchair 250 feet independently. Up and down 5 steps with bila teral handrails independently. With occupational therapy, supervision for qgq-aj-iawmg transfers and did bln-sk-rdbrxmwphp also supervision. She did mobilize wheelchair to gym 250 feet with supervispamela kidd. With speech, demonstrated improvement in initial short-term memory by recalling 3 of 3 unrelated pictures after 5 minutes and 10 minutes delay. Organizational thinking during a negation task with safia holt categories done with 90% accuracy. Assessment And Plan: Ms. Aldana is a 64-year-old patient with coronary artery disease and debility. She does have decreased mobility, decreased physical functioning. She is on antibiotics at this poin t. As she did have some nausea as she got up and mobilized, potentially related to peripheral cause, she will have Linda maneuver done. She will have Zofran on board as appropriate for addressing the nausea. Meclizine will be added. List of comorbid conditions had been noted, being addressed by con tinuing her medications including getting her therapeutic on Coumadin, venlafaxine for depression, tr azodone for insomnia, and Aldactone for fluid management. She has Protonix for gastroesophageal refl ux, Cozaar for heart rate control, Synthroid for hypothyroidism, Plavix for stroke risk reduction, al buterol nebulizer for shortness of breath. LB/MARISELAL Voice ID: [id number] Report ID: [id number]
[2024-11-13 06:16] LABS: Protime INR 1.9
[2024-11-13] MEDS ORDERED: ONDANSETRON 4 MG (ODT) TAB PO SCH (08:00)
--- NOTE | 2024-11-13 13:33 | P.RH.PN ---
Estimated Length of Stay: 12 Expected Discharge Date: 11/20/24 Discharge Disposition Plan: Home Family Support: Yes [facility] Goal: Mobility, Transfers, Self Care Vital Signs: Last Vital Signs Temp 98.1 F 11/13/24 06:49 Pulse 88 11/13/24 08:01 Resp 14 11/13/24 06:49 BP 125/56 L 11/13/24 08:01 Pulse Ox 98 11/13/24 06:49 Laboratory: Laboratory Last Values WBC 6.90 thou/uL (4.3-10.9) 11/12/24 04:15 RBC 3.72 M/uL (3.86-4.86) L 11/12/24 04:15 Hgb 9.4 g/dL (12.0-15.0) L 11/12/24 04:15 Hct 28.6 % (36.0-45.0) L 11/12/24 04:15 MCV 77.0 fL (80-100) L 11/12/24 04:15 MCH 25.2 pg (27.0-35.0) L 11/12/24 04:15 MCHC 32.8 g/dL (32.0-36.0) 11/12/24 04:15 RDW 18.7 % (12.1-15.2) H 11/12/24 04:15 Plt Count 444 thou/uL (152-406) H 11/12/24 04:15 MPV 8.7 fL (7.6-11.3) 11/12/24 04:15 Neutrophils % 61.7 % (41.7-73.7) 11/12/24 04:15 Lymphocytes % 25.5 % (15.3-44.8) 11/12/24 04:15 Monocytes % 9.5 % (3.3-12.3) 11/12/24 04:15 Eosinophils % 2.1 % (0-4.4) 11/12/24 04:15 Basophils % 1.2 % (0-1.3) 11/12/24 04:15 Absolute Neutrophils 4.3 K/uL (1.8-8.0) 11/12/24 04:15 Absolute Lymphocytes 1.8 K/uL (0.7-4.9) 11/12/24 04:15 Absolute Monocytes 0.7 K/uL (0.1-1.3) 11/12/24 04:15 Absolute Eosinophils 0.1 K/uL (0-0.5) 11/12/24 04:15 Absolute Basophils 0.1 K/uL (0-0.5) 11/12/24 04:15 PT 21.0 SECONDS (10-13.0) H 11/13/24 06:05 INR 1.90 11/13/24 06:05 Sodium 134 mEq/L (136-145) L 11/12/24 04:15 Potassium 3.8 mEq/L (3.5-5.1) 11/12/24 04:15 Chloride 100 mEq/L (98-107) 11/12/24 04:15 Carbon Dioxide 28 mEq/L (21-32) 11/12/24 04:15 Anion Gap 9.8 mEq/L (5.0-15.0) 11/12/24 04:15 BUN 32 mg/dL (7-18) H 11/12/24 04:15 Creatinine 1.51 mg/dL (0.55-1.02) H 11/12/24 04:15 Est GFR (CKD-EPI) 38 ml/min (=/>90) L 11/12/24 04:15 Glucose 104 mg/dL (74-106) 11/12/24 04:15 Calcium 9.0 mg/dL (8.5-10.1) 11/12/24 04:15 Magnesium 2.0 mg/dL (1.6-2.4) 11/12/24 04:15 Total Bilirubin 0.5 mg/dL (0.2-1.0) 11/11/24 05:38 Direct Bilirubin < 0.2 mg/dL (0-0.2) 11/11/24 05:38 Indirect Bilirubin 0.3 mg/dL (0.2-0.8) 11/11/24 05:38 AST 30 U/L (15-37) 11/11/24 05:38 ALT 20 U/L (13-56) 11/11/24 05:38 Alkaline Phosphatase 64 U/L (45-117) 11/11/24 05:38 Serum Total Protein 6.5 g/dL (6.4-8.2) 11/11/24 05:38 Albumin 3.3 g/dL (3.4-5.0) L 11/12/24 04:15 Globulin 3.5 g/dL (2.3-3.5) 11/11/24 05:38 Albumin/Globulin Ratio 0.9 (1.1-1.8) L 11/11/24 05:38 Prealbumin 20.8 mg/dL (20-40) 11/12/24 04:15 Urine Color Colorless (Yellow) 11/10/24 15:00 Urine Clarity Clear (Clear) 11/10/24 15:00 Urine pH 5.5 (5.0-7.0) 11/10/24 15:00 Ur Specific [place] 1.010 (1.005-1.030) 11/10/24 15:00 Glucose (UA)(Auto) Negative (Negative) 11/10/24 15:00 Urine Ketones Negative (Negative) 11/10/24 15:00 Urine Blood Negative (Negative) 11/10/24 15:00 Urine Nitrite Negative (Negative) 11/10/24 15:00 Urine Bilirubin Negative (Negative) 11/10/24 15:00 Urine Urobilinogen Normal (Normal) 11/10/24 15:00 Ur Leukocyte Esterase Negative [place]/uL (Negative) 11/10/24 15:00 Urine RBC <5 /HPF (None Seen) 11/10/24 15:00 Urine WBC <5 /HPF (<5) 11/10/24 15:00 Ur Squamous Epith Cells <5 /HPF (None Seen) 11/10/24 15:00 U Non-Squamous Epi Cells <5 /HPF (None Seen) 11/10/24 15:00 Urine Bacteria None seen /HPF (<20) 11/10/24 15:00 Hyaline Casts 10-20 /LPF (None Seen) H 11/10/24 15:00 Urine Mucus Slight /HPF (None Seen) 11/10/24 15:00 Urine Culture Reflexed Not needed 11/10/24 15:00 Urine Total Protein Negative (Negative) 11/10/24 15:00 Weight: 129 lb 13.636 oz Wound Present: No Closed Surgical Incision Present: Yes Negative Pressure Wound Therapy Present: No Physician Update: Labs reviewed and are stable. Mild dehydration. Poor eating. Staph infection treated with Daptomycin. She will go home with [facility] and continue IV antibiotice until early December. BIMS 13, SLUMS 18, min assist with speech with improved nausea. Meet 11/06 STG, RW 175' x 2, up and down 5 steps, WC 250'. Shower was done with min to mod assist. She is still unsafe and impulsive. CGA with ADLs. 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 Please see the Rehabilitation Signature page for all necessary signatures.
[2024-11-13] MEDS: CYANOCOBALAMIN 1000MCG/ML INJ IM ONE (20:10)
[2024-11-14 05:08] VITALS: BMI 20.6
[2024-11-14 05:58] LABS: Protime INR 2.28
[2024-11-15 05:39] LABS: PT Prothrombin Time 29.7 SECONDS (10-13.0); Protime INR 2.73
[2024-11-15] MEDS: ACETAMINOPHEN 500 MG TAB PO PRN (08:05)
[2024-11-15] MEDS: FEXOFENADINE 180 MG TAB PO SCH (18:31)
[2024-11-15] MEDS: FEXOFENADINE 180 MG TAB PO PRN (19:09)
[2024-11-16 04:48] LABS: PT Prothrombin Time 30.4 SECONDS (10-13.0); Protime INR 2.8
[2024-11-16] MEDS: FUROSEMIDE 40 MG TABLET PO SCH (09:14)
--- NOTE | 2024-11-16 17:13 | P.CNS ---
Date of Consult: 11/16/24 reason for consult: staph epidermis and prosthetic valve endocarditis HPI: Pt is a 63 years olf female with h/o HTN, CAD s/p PCI to the LAD at OSH, mechanical AVR/MVR, HFpEF, SLE, prior seizurea. She initially presented to [facility] for chest pain and SOb and was found to have NSTEMI with HS trop in 1000 range.She have Staphylococcus epidermis and prosthetic valve endocarditis. Serial blood cultures did show persistent bacteremia since 10/20.Pt is currently on daptomycin but report has to pay 1500 out of pocket for the abx. allergies: PENICILLIN, PROCHLORPERAZINE, COMPAZINE, PHENERGAN PMH:HF, endocarditis, SLE, celiac diease smoking: denied Objective General: alert and oriented. in no distress HEENT: normocephalic, atraumatic. neuro: aox3 Neck: Supple. Chest: CTA abdomen: NT. ND, BS present urine: no growth 11/12/24 lab: wbc 6.9, platelet 444,bun 32, creatinine 1.51 Temp Pulse Resp BP Pulse Ox 98.0 F 87 16 137/59 L 100 11/16/24 06:58 11/16/24 09:13 11/16/24 06:58 11/16/24 09:13 11/16/24 06:58 PLAN and ASSESSMENT 1. Staph epidermis and prosthetic valve endocarditis continue IV daptomycin until 12/07/24 for bacteremia Spoke to RN to get culture report from recent hospital another option is to send pt to alf or ad terminal makeup operator acute care if pt is unable to go home with abx plan discussed with Dr Talamantes case discussed and in agreement with Dr cody
--- NOTE | 2024-11-17 00:06 | PN ---
Date of Progress Note: 11/16/2024 Time Of Service: 1:15 p.m. Subjective: Ms. Aldana is doing excellent. She is mobilizing her wheelchair around the unit. The he lp of Dr. Hickey on the ID Service was requested as the patient has to go home completing daptomycin for systemic infection including endocarditis. However, the medication is costing over 1500 [address] a month [address] Dr. Hickey is now on board to help with determining what IV antibiotics could be switched to that is less expensive. The cultures that were done prior to the patient's hospitalization was r equested by Dr. Hickey's service and that will be obtained as soon as possible from the prior hospita l. Objective: Again, no fevers, chills, nausea, vomiting, myalgias, arthralgias. No rash. She is feel ing stronger and better and able to endure exercise. Physical Examination: Vital Signs: Blood pressure 137/59, pulse 57, respiratory rate 16, temperature 98.0, oxygen saturati on 100%. General: Ms. Aldana is sitting in a chair, wheeling herself around the unit. HEENT: She is normocephalic, atraumatic. Sclerae anicteric. Oropharynx pink, moist. Neck: Supple. Chest: Clear. Heart: Regular. Neuro: She is doing very well with all her therapy. Laboratory Studies: Today, her INR is 2.80. X-ray/imaging: No new x-rays or imaging. Again, she was seen by Dr. Hickey's service and they are h elping to manage the transition of the expensive daptomycin to other antibiotics as appropriate. Progress Made With Physical, Occupational, And Speech Therapy: Today with physical therapy, she did jsaput-qy-[id number] transfers independently, multiple stand to pivot and toilet transfers independently. S he ambulated with a rolling walker 175 feet twice, 250 feet, and 400 feet with standby assistance. S he was up and down 15 steps with bilateral handrails independently. With occupational therapy, bed m obility dependent, independent with bed to wheelchair transfer, and she ambulated to the gym, complet ed multiple sets of stand to pivot exercises, did very well and did toileting well and did excellent. With speech, she sequenced information, 60% accuracy without cues and 90% accuracy with cues. She recalled 4 of 4 unrelated pictures after 3, 5, and 10-minute increments. She is doing excellent with speech. Assessment: Ms. Aldana is a 64-year-old patient in the rehabilitation unit with coronary artery disea se. She has endocarditis, systemic infection, she is on daptomycin antibiotics. She is to be discha rged home and continue antibiotics per primary team prior to coming to the inpatient rehabilitation. However, the medications are 1500 dollars for treatment which is expensive and Dr. Hickey on the ID service is helping to see what options are available. The blood cultures prior to coming to the hosp ital will be sought to help make that decision. Otherwise, she has hypothyroidism, continuing treatm ent for that, albuterol nebulizer for COPD, shortness of breath, Cozaar for hypertension. Continue w ith metoprolol as well, spironolactone for fluid management, tramadol for pain, Senokot-S for constip ation, Protonix for GE reflux, Zofran for nausea, melatonin for insomnia. Plan: In terms of the plan, she will continue with physical, occupational, and speech therapy. Cont inue with daptomycin as per protocol. Continue with any switch over to medications as per Dr. Hickey 's service and she will continue with physical, occupational, and speech therapy 3.5 hours, 5 of 7 da ys until her discharge. ROSS/GERARDO Voice ID: [id number] Report ID: [id number]
[2024-11-17 05:44] LABS: PT Prothrombin Time 26.1 SECONDS (10-13.0); Protime INR 2.39
[2024-11-17] MEDS: predniSONE 5 MG TAB PO SCH (10:30)
--- NOTE | 2024-11-17 22:26 | PN ---
Date of Progress Note: 11/17/2024 Time Of Service: 1:20 p.m. Subjective: Ms. Aldana is resting in bed in between therapy sessions. She is very happy so far with her therapy. She did have some questions about the antibiotics which is very expensive. She is to c ontinue with daptomycin at home. Dr. Hickey and his physician assistant program director are working on obtaining the culture results and our staff as well from [facility] so that the proper antibiotic change may be facil itated. Otherwise, she says she is doing very well. Objective: No fevers, chills, nausea, vomiting. No significant myalgias, arthralgias, rash. No oth er complaints. Physical Examination: Vital Signs: Blood pressure 117/51, pulse of 90, respiratory rate 16, temperature 98.2, oxygen satur ation 98%. General: Ms. Aldana is again lying in bed in between therapy sessions. HEENT: She is normocephalic, atraumatic. Sclerae anicteric. Oropharynx pink and moist. Neck: Supple. Chest: Clear. Heart: Regular. Laboratory Studies: She has no new laboratory studies except her INR today is 2.39. X-ray/imaging: No new x-rays or imaging. Medications: Have been reviewed and are unchanged. Progress Made With Physical, Occupational, And Speech Therapy: Today with physical therapy, she did lxezbi-il-epr transfers independently, multiple toilet transfers independently, pqqth-ty-szjju transf ers done independently. She ambulated 400 feet with a rolling walker both inside and outside and did so independently. She was able to do with a rolling walker 175 feet twice, 150 feet again independe ntly. Perform wheelchair mobilization 350 feet independently. With occupational therapy, continue t o demonstrate bed mobility with independence, shower transfers independent, achieve independence leve l from activities of daily living, doing very well. With speech, she did recall 5/5 unrelated pictur es after 3 minutes and 10-minute delay using memory strategies that she did independently. She compl eted card sorting with divided attention tasks with 100% accuracy. She is doing very well for speech . Assessment: Ms. Aldana is a 64-year-old patient in rehabilitation unit with coronary artery disease, debility, decreased mobility, decreased physical functioning, which she is doing very well with. In addition, she has shortness of breath. COPD is improving. She is on daptomycin for a multidrug-resi stant infection and she will have cultures hopefully reported from [facility] and potential changes made by the ID Service, Dr. Hickey and his staff. Continue Lasix for fluid management, Synthroid for hyp othyroidism, Cozaar for blood pressure management, melatonin for insomnia, Toprol for heart rate cont rol, Zofran for nausea, Protonix for GE reflux, she has Senokot-S for constipation, spironolactone he lping with fluid management. She is on Coumadin 3 mg daily to maintain INR between 2.5 and 3.5, Effe xor for depression. Plan: She will continue with physical, occupational, and speech therapy 3.5 hours, 5 of 7 days, and continue with all medications as noted and plan will be for her to be able to discharge home on IV an tibiotics to continue protocol until December per primary team prior to coming into inpatient rehabilitati on. ROSS/MARISELAL Voice ID: [id number] Report ID: [id number]
--- NOTE | 2024-11-18 00:21 | PN ---
Date of Progress Note: 11/17/2024 Subjective: The patient was seen in the rehab unit. Denies any headache, nausea, vomiting, chest pa in, abdominal pain, constipation, diarrhea. Objective: Vital Signs: Temperature 97, pulse 86, respiration 18, blood pressure 106/54. Lungs: Basal crackles. Heart: S1, S2. Regular. Abdomen: Soft, nontender. Bowel sounds present. Extremities: No edema. Laboratory Data: Shows WBC 6.9, hemoglobin 9.4, platelets 444. Chemistry shows BUN of 32, creatinin e 1.5. Current Medications: Include daptomycin. See MARs for other medications. Assessment And Plan: 1. 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 We will recommend to get culture reports from h ospital of transfer. 2. Also, please obtain the phone number of infectious disease principal consultant for possible switching antib iotic to vancomycin. 3. Chronic obstructive pulmonary disease. 4. Renal insufficiency. We will recommend to get CK level. 5. Anemia of chronic disease. 6. Thrombocytosis. We will follow the patient as needed. Monitor signs of infection with WBC and fever trends. NF/MODL Voice ID: [id number] Report ID: [id number]
[2024-11-18 06:40] LABS: PT Prothrombin Time 27.4 SECONDS (10-13.0); Protime INR 2.51
[2024-11-18] MEDS ORDERED: predniSONE 5 MG TAB PO SCH (08:00)
--- NOTE | 2024-11-18 15:57 | PN ---
Date of Progress Note: 11/18/2024 Time: 1:15 p.m. Subjective: Ms. Aldana is resting in bed. She is very happy with her therapy so far. She was seen b y Dr. Hickey in the ID service. He is making a determination as to what antibiotics she may be able to go home on that is less costly that the 1500 to pay for daptomycin IV. There is a poss ibility that vancomycin may be substituted. There is an option for oral course, but we will await re commendation from Dr. Hickey. Objective: No fevers, chills, nausea, vomiting, myalgias, arthralgias, rash, headache, weight change . No other complaints. Physical Examination: Vital Signs: Blood pressure 141/53, pulse 92, respiratory rate of 18, temperature 98, oxygen saturat ion 98%. General: Ms. Aldana is resting comfortably. She appears to be in no significant distress. She has n o focal deficits. She has no issues of shortness of breath. No pain in the extremities and she is a gain very happy with where she is in terms of therapy. Laboratory Studies: Her INR today is 2.51, which is on target. X-ray/imaging: No new x-rays or imaging. Medications: Her medications are reviewed on a daily basis and are unchanged. She does have steroid s on board and again she may have a change in the antibiotics. Coumadin is at 3 mg daily. Progress Made With Physical, Occupational, And Speech Therapy: Today with physical therapy she was a ble to do twkqbp-vm-zxo transfers independently, multiple toilet transfers back and forth independent ly, wnn-vo-uknzn transfers done independently. Car transfer was stimulated and done independently. Gait, she ambulated 175 feet twice and 625 feet independently with upright posture. She had good sandra athing techniques. With occupational therapy, independent with bed mobility transfers. She did have good standing balance and did oral hygiene at sink side without loss of balance. Independent with t oileting. She worked with Speech therapy today and she did improve her BIMS score from 13 to 15, michele t is a full score and the SLUMS score improved from 18 to 26, which shows very mild limitations. She could use improvement in short-term memory, calculations, word fluency, working memory, and in recal l of paragraphs. Assessment: Ms. Aldana is a 64-year-old patient in rehabilitation with coronary artery disease. She has decreased mobility, physical functioning. She has endocarditis. She has systemic infection. Liz wilder is on daptomycin long-term until December 07, which is very expensive and prior to going home goal is t o get her on a cheaper antibiotic. She does have fluid management with Lasix. Synthroid for hypothy roidism. Continue Cozaar for her blood pressure management with metoprolol. She has Zofran for naus ea. Protonix for GE reflux. She has spironolactone also for fluid management, tramadol for pain and she has Desyrel for insomnia. Plan: Currently, we will continue with physical, occupational and speech therapy 3.5 hours, 5 of 7 d ays. Await recommendations by Dr. Hickey about use of antibiotics that are more appropriate in terms of cost. She will continue with comorbid condition medications as noted. Continue with therapy 3.5 hours, 5 of 7 days and she is doing excellent with physical therapy. She is just awaiting the prope r antibiotics prior to being discharged home. The recommendation is if she is able to continue thera py outpatient, that will be ideal. However, if she has to have IV antibiotics retirement or [facility] health will be recommended. Since she is well beyond the need for retirement, it will be home health and home health nurses may be able to continue antibiotics or an infusion service, however, t hat again is determined by the antibiotics that she will be required to go home on. ROSS/GERARDO Voice ID: [id number] Report ID: [id number]
--- NOTE | 2024-11-18 17:14 | P.PN ---
Date of Service: 11/18/24 Subjective: The patient was seen in the rehab unit. Denies any headache, nausea, vomiting, chest pain, abdominal pain, constipation, diarrhea. Objective: Vital Signs: Temp Pulse Resp BP Pulse Ox 98 F 92 H 18 141/53 H 98 11/18/24 06:30 11/18/24 09:13 11/18/24 06:41 11/18/24 09:13 11/18/24 06:41 Neuro: aox 3 Lungs: Basal crackles. Heart: S1, S2. Regular. Abdomen: Soft, nontender. Bowel sounds present. Extremities: No edema. Laboratory Data: Shows WBC 6.9, hemoglobin 9.4, platelets 444. Chemistry shows BUN of 32, creatinine 1.5 Assessment And Plan: 1. 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 Review blood culture report from [facility] today. pt is sensitive to vancomycin. Will start vancomycin until december 07, 2024 for bacteremia. DC daptomycin due to high cost. 2.Chronic obstructive pulmonary disease. 3. Renal insufficiency. We will recommend to get CK level. 4. Anemia of chronic disease. 5. Thrombocytosis. We will follow the patient as needed. Monitor signs of infection with WBC and fever trends case discussed and in agreement with Dr cody
[2024-11-18] MEDS: VANCOMYCIN 1.5 GM in NA CHLORIDE 0.9% 500 ML IVPB ONE (19:00)
[2024-11-19 05:32] LABS: Absolute Eosinophils 0.3 K/uL (0-0.5); Absolute Lymphocytes (CBC) 0.6 K/uL (0.7-4.9); Absolute Monocytes 0.5 K/uL (0.1-1.3); Absolute Neutrophil 5.2 K/uL (1.8-8.0); Basophils % 0.4 % (0-1.3); Eosinophils % 4.5 % (0-4.4); Hematocrit 27.3 % (36.0-45.0); Hemoglobin 8.9 g/dL (12.0-15.0); Lymphocytes % 9.5 % (15.3-44.8); MCH 25.5 pg (27.0-35.0); MCHC 32.5 g/dL (32.0-36.0); MCV 78.7 fL (80-100); MPV 9.1 fL (7.6-11.3); Monocytes % 7.5 % (3.3-12.3); Neutrophils % 78.1 % (41.7-73.7); Platelets 274 thou/uL (152-406); RBC Red Blood Cell Count 3.47 M/uL (3.86-4.86); Red Cell Distribution Width 18.3 % (12.1-15.2)
[2024-11-19 05:38] LABS: PT Prothrombin Time 30.7 SECONDS (10-13.0); Protime INR 2.83
[2024-11-19 05:56] LABS: Albumin 2.9 g/dL (3.4-5.0); Anion Gap 10.7 mEq/L (5.0-15.0); Magnesium 1.8 mg/dL (1.6-2.4); Potassium 3.7 mEq/L (3.5-5.1); Prealbumin 20.4 mg/dL (20-40)
[2024-11-19 06:32] VITALS: TEMP 97.6
[2024-11-19 07:18] VITALS: BP 106/58
--- NOTE | 2024-11-19 15:39 | PN ---
Date of Progress Note: 11/19/2024 Subjective: Ms. Aldana is in the room with family. She is very happy about her progress so far. Her antibiotic daptomycin was switched to vancomycin which is much cheaper than the 1500 mg that she was required to pay at around 250. She has had made great progress and will likely to continue to do ve ry well. Objective: No fevers, chills, nausea, vomiting, myalgias, arthralgias. She has no new complaints of shortness of breath issues. Physical Examination: Vital Signs: Blood pressure is 106/58, pulse 71, respiratory rate of 18, temperature 97.6, oxygen sa turation 95%. General: She is lying comfortably in bed. HEENT: Appears normocephalic, atraumatic. Sclerae anicteric. Oropharynx pink and moist. Neck: Supple. Chest: Clear. No abnormalities identified. Laboratory Studies: White blood cell count 6.6, hemoglobin 8.9, platelets 274. INR 2.83, in good ra nge, which is rated 2.5 to 3.5. Sodium 141, potassium 3.7, chloride 106, BUN 20, creatinine 0.95. C alcium 8.3, magnesium 1.8. Albumin 2.9, prealbumin 20.4. Creatine kinase 77. Vancomycin trough lev el of 13.0. X-ray And Imaging: No new x-rays or imaging. Medications: Medications have been reviewed. Again she is on vancomycin instead of daptomycin at th is point. She continues the warfarin. She has venlafaxine for mood stabilization, Senokot for const ipation, Zofran for nausea, metoprolol and Cozaar for blood pressure management. Synthroid for hypot hyroidism, Lasix for fluid management, albuterol nebulizer for shortness of breath. Progress Made With Physical, Occupational, And Speech Therapy: With speech, she was still noted to b e somewhat impulsive, but did have improved memory. Family was at the bedside as therapy is working with the patient and they verbalized understanding and worked on family teaching. She also worked on family being able to administer medications, but halfway will be helping the patient as she is discharged home. Regarding her physical therapy, she is now at an independent level for supine-to -sit transfers, toilet transfers independent, stand pivot transfers, all independent. Ambulated 250 feet and 175 feet, another 625 feet independently with a rolling walker and she was able to maintain upright posture, good breathing techniques applied. With occupational therapy, she also did independ ent activity including bed mobility, toilet transfers and working at the sink for oral hygiene withou t loss of balance. With her speech, she was able to improve the SLUMS to 26 and the BIMS is normal a t 15. Assessment And Plan: Ms. Aldana is a 64-year-old patient in the rehabilitation unit with coronary art ana m disease. She has decreased mobility, decreased physical functioning. She is doing excellent in terms of her therapy and her comorbid conditions are stably managed and she is ready for discharge ho mn. She will continue therapy via Home Health, continue followup with her linen controller and primary c are physician. Her medications will be included including the daptomycin which will address the endo carditis and sepsis which is now well treated but must continue the full course until December 07 of the vancomycin per the Infectious Disease Service, Dr. Hickey. Again discharge will likely be today and she is very happy so far. Has no new complaints in terms of how well she is doing. LB/MODL Voice ID: [id number] Report ID: [id number]
--- NOTE | 2024-11-19 23:13 | PN ---
Subjective: The patient is doing well without any complaints, being discharged today on vancomycin a s Staph epidermidis cultures came back, which are sensitive to vancomycin with QUIANA of 1. Objective: Vital Signs: Reviewed. Lungs: Clear to auscultation. Heart: S1, S2. Regular. Abdomen: Soft, nontender. Bowel sounds present. Extremities: No edema. Laboratory Data: Reviewed. 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 Contin ue antibiotic for 6 weeks and follow up with Surgical team for further evaluation. Recommend to have followup cultures done. We will continue to monitor signs of infection while the patient is here wi th fever trends and WBC. NF/MODL Voice ID: [id number] Report ID: [id number]
[2024-11-20] MEDS ORDERED: VANCOMYCIN 1 GM in NA CHLORIDE 0.9% 250 ML IVPB SCH (06:00)
[2024-11-20] MEDS ORDERED: FUROSEMIDE 20 MG TABLET PO SCH (08:00)
--- NOTE | 2024-11-29 23:12 | CON ---
Date of Consultation: 11/12/2024 Reason For Consult: Evaluate the patient for anxiety and make recommendations. status post surgery stating that she needed to have her valves replaced. compl ained of anxiety, wanting to see a psychiatrist. States she has been scheduled for her valve replace ment surgery on December 08. She has a history of mechanical aortic valves, pending to be replaced by bi oprosthetic valves. The patient reports anxiety, primarily due to outcome of surgery. The patient h as gotten some 9 panic attacks. . The patient has a history of stroke which has affected her memory. She reports difficulty with using her phone, biometric passwords but she has retained stability to recall recent news on family details. The patient has contributing to chronic pain which is . She currently denies history of depression. No history of ps ychosis or OCD. Denies history of bipolar and history of alcohol or substance abuse. Denies history of anxiety disorders. Past medical history indicates multiple heart attacks, stroke-related. . Diagnoses: 1. Anxiety disorder, unspecified. 2. Adjustment disorder with distress. 3. Insomnia . Recommend: We recommend trazodone . The patient does not require any acute inpatient psyc hiatric admission at this time . We recommend to continue current medication management. . Recommend the patient to follow up with psychiatric as an outpatient. We will follow evaluation and discussed treatment and plan with the jitendra garcia team. DEBI/GERARDO Voice ID: [id number] Report ID: [id number]
== END 2024-11-19 14:55 | disposition home health service (06) | DRG 280 ==
LOC: 5TH 21:34
PROVIDERS: ADMIT Psychiatry & Neurology Neurology with Special Qualifications in Child Neurology; ATTEND Psychiatry & Neurology Neurology with Special Qualifications in Child Neurology
DX: I25.10 Atherosclerotic heart disease of native coronary artery without angina pectoris (principal); I33.0 Acute and subacute infective endocarditis; I21.4 Non-ST elevation (NSTEMI) myocardial infarction; R78.81 Bacteremia; E27.40 Unspecified adrenocortical insufficiency; Z16.24 Resistance to multiple antibiotics; T82.6XXD Infection and inflammatory reaction due to cardiac valve prosthesis, subsequent encounter; B95.8 Unspecified staphylococcus as the cause of diseases classified elsewhere; R53.1 Weakness; R53.81 Other malaise; I10 Essential (primary) hypertension; E03.9 Hypothyroidism, unspecified; K21.9 Gastro-esophageal reflux disease without esophagitis; K59.00 Constipation, unspecified; R11.0 Nausea; G47.00 Insomnia, unspecified; E86.0 Dehydration; J44.9 Chronic obstructive pulmonary disease, unspecified; F32.A Depression, unspecified; M32.9 Systemic lupus erythematosus, unspecified; D63.8 Anemia in other chronic diseases classified elsewhere; D75.839 Thrombocytosis, unspecified; F43.22 Adjustment disorder with anxiety; Z98.61 Coronary angioplasty status
CPT/HCPCS: 36415; 71045; 80048; 80076; 80202; 81001; 82040; 82550; 83735; 84134; 85025; 85610; 87086; 87088; 92523; 97110; 97112; 97116; 97124; 97129; 97163; 97165; 97530; 97542; A4216; J0878; J1650; J2405; J3370; J3420; J7040; J7512; Q0162

== ENCOUNTER 2024-11-22 14:48 | Emergency (ER) | payer OTHER ==
[2024-11-22] MEDS ORDERED: ALTEPLASE 2 MG/VIAL IV ONE ×2 (14:55→14:57)
[2024-11-22 15:41] LABS: Absolute Eosinophils 0.2 K/uL (0-0.5); Absolute Lymphocytes (CBC) 0.5 K/uL (0.7-4.9); Absolute Monocytes 0.4 K/uL (0.1-1.3); Absolute Neutrophil 2.8 K/uL (1.8-8.0); Basophils % 0.8 % (0-1.3); Eosinophils % 4.5 % (0-4.4); Hematocrit 29.5 % (36.0-45.0); Hemoglobin 9.6 g/dL (12.0-15.0); Lymphocytes % 12.3 % (15.3-44.8); MCHC 32.4 g/dL (32.0-36.0); MCV 77.1 fL (80-100); MPV 8.7 fL (7.6-11.3); Monocytes % 10.2 % (3.3-12.3); Neutrophils % 72.2 % (41.7-73.7); Nucleated Red Blood Cells % 0.1 % (0-0); Platelets 268 thou/uL (152-406); RBC Red Blood Cell Count 3.82 M/uL (3.86-4.86); Red Cell Distribution Width 17.5 % (12.1-15.2)
--- NOTE | 2024-11-22 15:57 | ER ---
Nurse's Notes [facility] Name: Kim Aldana Age: 64 yrs Sex: Female : 1960 Arrival Date: 11/22/2024 Time: 14:48 Bed 11 Private MD: Diagnosis: Other mechanical complication of infusion catheter, initial encounter;Anemia, unspecified Presentation: 11/22 15:09 Chief complaint: RUE PICC clogged today. Coronavirus screen: At this time, the client hb does not indicate any symptoms associated with coronavirus-19. Ebola Screen: No symptoms or risks identified at this time. Initial Sepsis Screen: Does the patient meet any 2 criteria? No. Patient's initial sepsis screen is negative. Does the patient have a suspected source of infection? No. Patient's initial sepsis screen is negative. Risk Assessment: Do you want to hurt yourself or someone else? Patient reports no desire to harm self or others. Onset of symptoms was November 22, 2024. 15:09 Method Of Arrival: Ambulatory hb 15:09 Acuity: CABRERA 3 hb Triage Assessment: 15:09 General: Appears in no apparent distress. Behavior is calm, cooperative. Pain: Denies hb pain. Neuro: GCS 15. Historical: - Allergies: 15:10 Aspirin; hb 15:10 Compazine; hb 15:10 Methadone; hb 15:10 Morphine; hb 15:10 Neurontin; hb 15:10 PENICILLINS; hb 15:10 plastic tape; hb 15:10 Suboxone; hb 15:10 Phenergan; hb - PMHx: 15:10 Anemia; arterial insuficiency; Back pain; cerebritis; chest pain; Chronic pain; hb dejenteritive joint disease; Dyspepsia; esophageal reflux; fatigue; hypersomnia; lumbar radiculitis; Lupus; menopause; Myocardial infarction; osteomyelitis; osteomyelitis; Panic Attacks; Panic Attacks; pulmonary edema; Seizures; Tachycardia; TIA; TIA; venous insufficiency; - PSHx: 15:10 bowel resection; breast reduction bilateral; hip replacement bilateral; Mitral and hb Aortic Valve replacement; right total knee; - Immunization history:: Adult Immunizations up to date. - Infectious Disease History:: Denies. - Social history:: Smoking status: Patient denies any tobacco usage or history of. - Family history:: not pertinent. Screenin:01 [facility] ED Fall Risk Assessment (Adult) History of falling in the last 3 months, hb including since admission No falls in past 3 months (0 pts) Confusion or Disorientation No (0 pts) Intoxicated or Sedated No (0 pts) Impaired Gait No (0 pts) Mobility Assist Device Used No (0 pt) Altered Elimination No (0 pt) Score/Fall Risk Level 0 - 2 = Low Risk Oriented to surroundings, Maintained a safe environment, Educated pt \T\ family on fall prevention, incl call for assistance when getting out of bed. Abuse screen: Denies threats or abuse. Denies injuries from another. Nutritional screening: No deficits noted. Tuberculosis screening: No symptoms or risk factors identified. Assessment: 15:33 General: See triage assessment . hb 16:17 Reassessment: Patient appears in no apparent distress at this time. Patient and/or hb family updated on plan of care and expected duration. Pain level reassessed. Patient is alert, oriented x 3, equal unlabored respirations, skin warm/dry/pink. Vital Signs: 15:09 BP 91 / 56; Pulse 77; Resp 16; Temp 98; Pulse Ox 100% on R/A; hb ED Course: 14:52 Patient arrived in ED. sj2 14:53 Branden Espino MD is Attending Physician. laureano 14:55 Marck Pollard, MELQUIADES is Primary Nurse. ll1 15:01 Patient has correct armband on for positive identification. Bed in low position. Call hb light in reach. Provided Education on: tests, result times. 15:10 Triage completed. hb 15:11 Arm band placed on. hb 15:30 CBC with Diff Sent. hb 15:30 BMP Sent. hb 15:30 Initial lab(s) drawn, by me, sent to lab. hb 16:17 No provider procedures requiring assistance completed. Accessed flushed RUE PICC with hb NS 20 mls, flushes easily with good blood return. PICC remains in place. Administered Medications: 15:00 Drug: Cathflo Activase IV Thrombolytics 2 mg IV Thrombolytics once; into each catheter hb lumen, may repeat once Route: IV Thrombolytics; 16:17 Follow up: Response: No adverse reaction hb Medication: 15:33 VIS not applicable for this client. hb Outcome: 15:56 Discharge ordered by . laureano 16:18 Discharged to home via wheelchair, hb 16:18 Condition: stable 16:18 Discharge instructions given to patient, Instructed on discharge instructions, follow up and referral plans. medication usage, PICC maintenance Demonstrated understanding of instructions, follow-up care, 16:19 Patient left the ED. Signatures: Branden Espino MD MD cha Baxter, Heather, RN RN Marck West RN RN [facility] Omar Neely
--- NOTE | 2024-11-22 15:57 | EDPHYS ---
Physician Documentation [facility] Name: Kim Aldana Age: 64 yrs Sex: Female : 1960 Arrival Date: 11/22/2024 Time: 14:48 Bed 11 Private MD: DEMAR Physician Branden Espino HPI: 11/22 15:35 This 64 yrs old Female presents to ER via Ambulatory with complaints of laureano MIDLINE NOT FLUSHING. 15:35 The patient or guardian complains of PICC NOT FLUSHING. The complaints affect the right laureano bicep. Context: The problem was sustained at home. Onset: The symptoms/episode began/occurred 1 day(s) ago. Treatment prior to arrival includes: no previous treatment. Modifying factors: The symptoms are alleviated by nothing. the symptoms are aggravated by nothing. Associated signs and symptoms: The patient has no apparent associated signs or symptoms. Severity of symptoms: At their worst the symptoms were mild, in the emergency department the symptoms are unchanged. The patient has not experienced similar symptoms in the past. Historical: - Allergies: 15:10 Aspirin; hb 15:10 Compazine; hb 15:10 Methadone; hb 15:10 Morphine; hb 15:10 Neurontin; hb 15:10 PENICILLINS; hb 15:10 plastic tape; hb 15:10 Suboxone; hb 15:10 Phenergan; hb - PMHx: 15:10 Anemia; arterial insuficiency; Back pain; cerebritis; chest pain; Chronic pain; hb dejenteritive joint disease; Dyspepsia; esophageal reflux; fatigue; hypersomnia; lumbar radiculitis; Lupus; menopause; Myocardial infarction; osteomyelitis; osteomyelitis; Panic Attacks; Panic Attacks; pulmonary edema; Seizures; Tachycardia; TIA; TIA; venous insufficiency; - PSHx: 15:10 bowel resection; breast reduction bilateral; hip replacement bilateral; Mitral and hb Aortic Valve replacement; right total knee; - Immunization history:: Adult Immunizations up to date. - Infectious Disease History:: Denies. - Social history:: Smoking status: Patient denies any tobacco usage or history of. - Family history:: not pertinent. ROS: 15:35 Constitutional: Negative for fever, chills, and weight loss, Eyes: Negative for injury, laureano pain, redness, and discharge, ENT: Negative for injury, pain, and discharge, Neck: Negative for injury, pain, and swelling, Respiratory: Negative for shortness of breath, cough, wheezing, and pleuritic chest pain, Abdomen/GI: Negative for abdominal pain, nausea, vomiting, diarrhea, and constipation, Back: Negative for injury and pain, : Negative for injury, bleeding, discharge, and swelling, MS/Extremity: Negative for injury and deformity, Skin: Negative for injury, rash, and discoloration, Neuro: Negative for headache, weakness, numbness, tingling, and seizure, Psych: Negative for depression, anxiety, suicide ideation, homicidal ideation, and hallucinations, Allergy/Immunology: Negative for hives, rash, and allergies, Endocrine: Negative for neck swelling, polydipsia, polyuria, polyphagia, and marked weight changes, Hematologic/Lymphatic: Negative for swollen nodes, abnormal bleeding, and unusual bruising, 15:35 Cardiovascular: Positive for OCCLUDED PICC, Exam: 15:36 Constitutional: This is a well developed, well nourished patient who is awake, alert, laureano and in no acute distress. Head/Face: Normocephalic, atraumatic. Eyes: Pupils equal round and reactive to light, extra-ocular motions intact. Lids and lashes normal. Conjunctiva and sclera are non-icteric and not injected. Cornea within normal limits. Periorbital areas with no swelling, redness, or edema. ENT: Nares patent. No nasal discharge, no septal abnormalities noted. Tympanic membranes are normal and external auditory canals are clear. Oropharynx with no redness, swelling, or masses, exudates, or evidence of obstruction, uvula midline. Mucous membranes moist. Neck: Trachea midline, no thyromegaly or masses palpated, and no cervical lymphadenopathy. Supple, full range of motion without nuchal rigidity, or vertebral point tenderness. No Meningismus. Chest/axilla: Normal chest wall appearance and motion. Nontender with no deformity. No lesions are appreciated. Cardiovascular: Regular rate and rhythm with a normal S1 and S2. No gallops, murmurs, or rubs. Normal PMI, no JVD. No pulse deficits. Respiratory: Lungs have equal breath sounds bilaterally, clear to auscultation and percussion. No rales, rhonchi or wheezes noted. No increased work of breathing, no retractions or nasal flaring. Abdomen/GI: Soft, non-tender, with normal bowel sounds. No distension or tympany. No guarding or rebound. No evidence of tenderness throughout. Back: No spinal tenderness. No costovertebral tenderness. Full range of motion. Female : Normal external genitalia. MS/ Extremity: Pulses equal, no cyanosis. Neurovascular intact. Full, normal range of motion., bilateral aka Neuro: Awake and alert, GCS 15, oriented to person, place, time, and situation. Cranial nerves II-XII grossly intact. Motor strength 5/5 in all extremities. Sensory grossly intact. Cerebellar exam normal. Normal gait. Psych: Awake, alert, with orientation to person, place and time. Behavior, mood, and affect are within normal limits. 15:36 Musculoskeletal/extremity: DVT Exam: No signs of deep vein thrombosis. no pain, no swelling, no tenderness, negative Homans' sign noted on exam, no appreciated bluish discoloration, no erythema, no increased warmth, 15:36 Skin: Appearance: Color: pale, Temperature: normal temperature, Moisture: normal moisture, petechiae, not noted, abscess, not appreciated, cellulitis, is not appreciated, induration, is not appreciated, injury, is not appreciated, 15:36 Neuro: Orientation: is normal, appropriate for stated age, no acute changes, Mentation: is normal, appropriate for stated age, no acute changes, Memory: is normal, appropriate for stated age, no acute changes, Cranial nerves: grossly normal, is grossly normal based on the patient's age, no acute changes, Cerebellar function: is grossly normal, is grossly normal based on the patient's age, no acute changes, Motor: is normal, is grossly normal based on the patient's age, Sensation: is normal, no obvious gross deficits, appropriate no acute changes, Gait: not applicable unable to assess, is steady, appropriate for age, Deep tendon reflexes are 2+ (normal) in the bilateral brachioradialis, bicep, tricep and patellar and Achilles tendons, Babinski testing is normal, seizure activity, is not displayed by the patient, Vital Signs: 15:09 BP 91 / 56; Pulse 77; Resp 16; Temp 98; Pulse Ox 100% on R/A; hb MDM: 14:53 Medical Screening Exam initiated laureano 14:54 Medical Screening Exam initiated laureano 15:38 Differential diagnosis: contusion, tendonitis. Data reviewed: vital signs, nurses laureano notes, lab test result(s). Consideration of Admission/Observation Escalation of care including admission/observation considered. I considered the following discharge prescriptions or medication management in the emergency department Medications were administered in the Emergency Department. See MAR. Test considered but Not performed: X-ray: NO XRAY. Historians other than the Patient: PT WELL INFORMED, FAMILY WELL. Care significantly affected by the following chronic conditions: ANEMIA, ARTERIAL INSUFFICIENCY, BACK PAIN CHEST PAIN , MITRAL VALVE DISEASE. Counseling: I had a detailed discussion with the patient and/or guardian regarding the historical points, exam findings, and any diagnostic results supporting the discharge/admit diagnosis, lab results, the need for outpatient follow up, for definitive care, a manager graphic. 11/22 15:16 Order name: CBC with Diff; Complete Time: 15:56 [facility] 11/22 15:16 Order name: BMP laureano Administered Medications: 15:00 Drug: Cathflo Activase IV Thrombolytics 2 mg IV Thrombolytics once; into each catheter hb lumen, may repeat once Route: IV Thrombolytics; 16:17 Follow up: Response: No adverse reaction hb Disposition Summary: 11/22/24 15:56 Discharge Ordered Notes: Location: Home laureano Problem: new laureano Symptoms: have improved laureano Condition: Stable laureano Diagnosis - Other mechanical complication of infusion catheter, initial encounter laureano - Anemia, unspecified laureano Followup: laureano - With: Private Physician - When: 2 - 3 days - Reason: Recheck today's complaints, Continuance of care, Re-evaluation by your physician Discharge Instructions: - Discharge Summary Sheet laureano - Anemia laureano - PICC Home Care Guide laureano - PICC Insertion, Care After laureano Forms: - Medication Reconciliation Form laureano - Antibiotic Education laureano - Prescription Opioid Use laureano - Patient Portal Instructions [facility] - Leadership Thank You Letter [facility] Signatures: Dispatcher [employer] Branden Damon MD MD cha Baxter, Heather, RN RN hb
[2024-11-22 15:59] LABS: Anion Gap 9.2 mEq/L (5.0-15.0); Potassium 3.2 mEq/L (3.5-5.1)
[2024-11-22] MEDS ORDERED: HEPARIN 500 UNIT/5 ML SYR IV ONE (16:06)
[2024-11-22 16:46] VITALS: BP 91/56; TEMP 98; O2SAT 100
== END 2024-11-22 16:19 | disposition home or self-care (01) ==
LOC: ER 14:48
DX: T82.594A Other mechanical complication of infusion catheter, initial encounter (principal); D64.9 Anemia, unspecified
CPT/HCPCS: 92977; 85025; 80048; 36415; 99291; J2997; J1642